=== PATIENT | male | born 1940 | race African-American/Black ===

== ENCOUNTER 2018-11-06 06:36 | Inpatient (IN) | payer OTHER ==
--- OUTSIDE RECORDS SUMMARY | 2018-11-06 06:38 | XMS REPORT | Clinical Summary ---
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 Last Filed Vital Signs Vital Sign Reading Time Taken Blood Pressure - - Pulse - - Temperature - - Respiratory Rate - - Oxygen Saturation - - Inhaled Oxygen Concentration - - Weight 90.7 kg (200 lb) 05/16/2018 1:30 PM CDT Height 177.8 cm (5' 10") 05/16/2018 1:30 PM CDT Body Mass Index 28.7 05/16/2018 1:30 PM CDT Plan of Treatment Health Maintenance Due Date Last Done Comments SHINGLES VACCINES (1 of 2) 1991 PNEUMOCOCCAL POLYSACCHARIDE VACCINE AGE 65 AND OVER 2006 PNEUMOCOCCAL-13 2006 INFLUENZA VACCINE 06/12/2018 Procedures Procedure Name Priority Date/Time Associated Diagnosis Comments CT ABDOMEN PELVIS Routine 05/16/2018 2:49 PM Neoplasm of Results for this WO CONTRAST CDT unspecified behavior procedure are in of left kidney the results section. 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 Sagittal and coronal computerized reformatted images were also obtained. The lack of intravenous contrast reduces the sensitivity of detecting solid organ disease.CT imaging was performed with iterative reconstruction technique and/or automated exposure control to reduce radiation dose. COMPARISON:None. IMPRESSION: Abdomen: There is cardiomegaly. Lung bases are unremarkable. A small hypodensity in the left hepatic lobe is 11 mm. It is likely a cyst but is not optimally evaluated without contrast. There is cholelithiasis. Spleen, pancreas, and adrenal glands are normal in appearance. Numerous masses in the left kidney are mostly hypodense although some are hyperdense. The largest is 8 cm. These are likely simple and hemorrhagic cysts but better evaluation with postcontrast enhanced CT is recommended. Numerous hyperdense lesions are seen in the right kidney in addition to several hypodense lesions. The largest lesion is 4.1 cm. These are also likely simple and hemorrhagic cysts. Postcontrast enhanced exam could best assess. The appendix is unremarkable. Pelvis: The patient is status post prostatectomy and iliac lymph node dissection. Small bilateral inguinal lymph nodes are seen which are increased in number. A left buttock fatty mass is 3.2 x 2.5 cm. 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 Sagittal and coronal computerized reformatted images were also obtained. The lack of intravenous contrast reduces the sensitivity of detecting solid organ disease.CT imaging was performed with iterative reconstruction technique and/or automated exposure control to reduce radiation dose. COMPARISON: None. IMPRESSION: Abdomen: There is cardiomegaly. Lung bases are unremarkable. A small hypodensity in the left hepatic lobe is 11 mm. It is likely a cyst but is not optimally evaluated without contrast. There is cholelithiasis. Spleen, pancreas, and adrenal glands are normal in appearance. Numerous masses in the left kidney are mostly hypodense although some are hyperdense. The largest is 8 cm. These are likely simple and hemorrhagic cysts but better evaluation with postcontrast enhanced CT is recommended. Numerous hyperdense lesions are seen in the right kidney in addition to several hypodense lesions. The largest lesion is 4.1 cm. These are also likely simple and hemorrhagic cysts. Postcontrast enhanced exam could best assess. The appendix is unremarkable. Pelvis: The patient is status post prostatectomy and iliac lymph node dissection. Small bilateral inguinal lymph nodes are seen which are increased in number. A left buttock fatty mass is 3.2 x 2.5 cm. 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 [facility]-[id number] Performing Organization Address City/State/Zipcode Phone Number [facility] [address] [place] [address] after 11/05/2017 Insurance Payer Benefit Plan / Group Subscriber ID Type Phone Address MEDICARE MEDICARE PART A AND B xxxxxxxxxx Medicare [place], [place] Advance Directives Patient has advance care planning documents on file. For more information, please contact:Mikal Cowan[address] [place] [address]
--- OUTSIDE RECORDS SUMMARY | 2018-11-06 06:38 | XMS REPORT | Clinical Summary ---
:1940 Author Organization [facility] Address [address] [place] [address] Care Team Providers Name Role Phone Unavailable Primary Care Provider Unavailable Allergies No Known Allergies Medications Medication Sig Dispensed Refills Start Date End Date Status furosemide (LASIX) 40 Take 40 mg by 0 Active MG tablet mouth daily. atorvastatin Take 10 mg by 0 Active (LIPITOR) 10 MG mouth nightly. tablet allopurinol Take 100 mg by 0 Active (ZYLOPRIM) 100 MG mouth daily. tablet metoprolol Take 50 mg by 0 Active (TOPROL-XL) 50 MG 24 mouth daily. hr tablet acarbose (PRECOSE) 50 Take 50 mg by 0 Active MG tablet mouth 3 (three) times daily with meals. cloNIDine HCl Take 1 tablet 270 tablet 3 10/26/2017 10/26/2018 (CATAPRES) 0.2 MG (0.2 mg total) tablet by mouth 3 (three) times daily. hydrALAZINE Take 1 tablet 270 tablet 3 10/26/2017 10/26/2018 (APRESOLINE) 50 MG (50 mg total) tablet by mouth every 8 (eight) hours. NIFEdipine (ADALAT Take 1 tablet 180 tablet 3 10/26/2017 10/26/2018 CC) 30 MG 24 hr (30 mg total) tablet by mouth 2 (two) times daily. traMADol (ULTRAM) 50 Take 1 tablet 30 tablet 0 10/26/2017 11/05/2017 mg tablet (50 mg total) by mouth every 6 (six) hours as needed for up to 10 days. Max Daily Amount: 200 mg Active Problems Problem Noted Date Kidney mass 10/21/2017 Immunizations Name Dates Previously Given Next Due Influenza High Dose Preservative Free IM 10/26/2017 Pneumococcal Polysaccharide (Pneumovax) 10/26/2017 Social History Tobacco Use Types Packs/Day Years Used Date Former Smoker Smokeless Tobacco: Never Used Sex Assigned at Date Recorded Not on file Job Start Date Occupation Industry Not on file Not on file Not on file Travel History Travel Start Travel End No recent travel history available. Last Filed Vital Signs Not on file Plan of Treatment Not on file Results Not on fileafter 11/05/2017 Insurance Payer Benefit Plan / Group Subscriber ID Type Phone Address MEDICARE MEDICARE A B xxxxxxxxxx Medicare Advance Directives For more information, please contact:[address] [phone] Code Status Date Activated Date Inactivated Comments Full Code 10/21/2017 3:49 PM 10/26/2017 4:58 PM This code status was determined by: Patient
--- OUTSIDE RECORDS SUMMARY | 2018-11-06 06:39 | XMS REPORT ---
:1940 [facility] [address] [place] [address] Care Team Providers Name Role Phone BANDAR MOORE Unavailable Unavailable Problems This patient has no known problems. Allergies, Adverse Reactions, Alerts This patient has no known allergies or adverse reactions. Medications This patient has no known medications. Results Test Description Test Time Test Comments Text Results Atomic Results Result Comments BLOOD CULTURE 2017-10-27 10:00:00 Test Item Value Reference Range Comments CULTURE (BEAKER) (test jnho=5800) No growth in 5 days BLOOD [id number] 10:00:00 Test Item Value Reference Range Comments CULTURE (BEAKER) (test gazf=1142) No growth in 5 days POCT-GLUCOSE [id number] 12:18:00 Test Item Value Reference Range Comments POC-GLUCOSE METER (BEAKER) 181 mg/dL 70-110 TESTED AT [address] (test krne=8683) [place] [id number] POCT-GLUCOSE [id number] 08:05:00 Test Item Value Reference Range Comments POC-GLUCOSE METER (BEAKER) 143 mg/dL 70-110 TESTED AT [address] (test kneq=7251) [place] [id number] BASIC METABOLIC [id number] 06:08:00 Test Item Value Reference Range Comments SODIUM (BEAKER) (test 139 meq/L 136-145 lbxh=843) POTASSIUM (BEAKER) (test 4.3 meq/L 3.5-5.1 qvll=406) CHLORIDE (BEAKER) (test 107 meq/L 98-107 cqpu=030) CO2 (BEAKER) (test 23 meq/L 22-29 bcyi=115) BLOOD UREA NITROGEN 40 mg/dL 7-21 (BEAKER) (test uymi=260) CREATININE (BEAKER) (test 2.56 mg/dL 0.57-1.25 vpxf=284) GLUCOSE RANDOM (BEAKER) 150 mg/dL 70-105 (test tkud=596) CALCIUM (BEAKER) (test 7.7 mg/dL 8.4-10.2 ghff=478) EGFR (BEAKER) (test 30 mL/min/1.73 sq m ESTIMATED GFR IS NOT vnnf=6789) ACCURATE CREATININE CLEARANCE IN PREDICTING GLOMERULAR FILTRATION RATE. ESTIMATED GFR IS NOT APPLICABLE FOR DIALYSIS PATIENTS. [id number] 06:03:00 Test Item Value Reference Range Comments PHOSPHORUS (BEAKER) (test eaig=396) 3.4 mg/dL 2.3-4.7 [id number] 06:03:00 Test Item Value Reference Range Comments MAGNESIUM (BEAKER) (test twtq=336) 1.9 mg/dL 1.6-2.6 CBC W/PLT COUNT & AUTO [id number] 05:38:00 Test Item Value Reference Range Comments WHITE BLOOD CELL COUNT (BEAKER) (test fiqa=648) 9.4 K/ L 3.5-10.5 RED BLOOD CELL COUNT (BEAKER) (test wzvx=437) 2.93 M/ L 4.63-6.08 HEMOGLOBIN (BEAKER) (test nxmw=242) 7.4 GM/DL 13.7-17.5 HEMATOCRIT (BEAKER) (test xafi=302) 23.0 % 40.1-51.0 MEAN CORPUSCULAR VOLUME (BEAKER) (test vbwd=119) 78.5 fL 79.0-92.2 MEAN CORPUSCULAR HEMOGLOBIN (BEAKER) (test 25.3 pg 25.7-32.2 hmqh=903) MEAN CORPUSCULAR HEMOGLOBIN CONC (BEAKER) (test 32.2 GM/DL 32.3-36.5 yctw=659) RED CELL DISTRIBUTION WIDTH (BEAKER) (test 17.5 % 11.6-14.4 ruuo=383) PLATELET COUNT (BEAKER) (test xlyp=456) 168 K/CU MM 150-450 MEAN PLATELET VOLUME (BEAKER) (test deba=211) 12.2 fL 9.4-12.4 NUCLEATED RED BLOOD CELLS (BEAKER) (test 0 /100 WBC 0-0 kpqf=567) NEUTROPHILS RELATIVE PERCENT (BEAKER) (test 82 % ofjc=761) LYMPHOCYTES RELATIVE PERCENT (BEAKER) (test 7 % ogvl=645) MONOCYTES RELATIVE PERCENT (BEAKER) (test 9 % zfdg=620) EOSINOPHILS RELATIVE PERCENT (BEAKER) (test 2 % inci=879) BASOPHILS RELATIVE PERCENT (BEAKER) (test 0 % dmpo=290) NEUTROPHILS ABSOLUTE COUNT (BEAKER) (test 7.65 K/ L 1.78-5.38 utzq=398) LYMPHOCYTES ABSOLUTE COUNT (BEAKER) (test 0.65 K/ L 1.32-3.57 uqmp=862) MONOCYTES ABSOLUTE COUNT (BEAKER) (test 0.88 K/ L 0.30-0.82 repa=757) EOSINOPHILS ABSOLUTE COUNT (BEAKER) (test 0.14 K/ L 0.04-0.54 aifc=909) BASOPHILS ABSOLUTE COUNT (BEAKER) (test 0.02 K/ L 0.01-0.08 umuq=041) IMMATURE GRANULOCYTES-RELATIVE PERCENT (BEAKER) 0 % 0-1 (test unsx=7629) CALCIUM, [id number] 05:36:00 Test Item Value Reference Range Comments CALCIUM IONIZED (BEAKER) (test jjyz=034) 0.89 mmol/L 1.12-1.27 PH, BLOOD (BEAKER) (test blll=6334) 7.54 POCT-GLUCOSE [id number] 21:59:00 Test Item Value Reference Range Comments POC-GLUCOSE METER (BEAKER) 184 mg/dL 70-110 TESTED AT [address] (test opqb=3262) [place] [id number] POCT-GLUCOSE [id number] 17:35:00 Test Item Value Reference Range Comments POC-GLUCOSE METER (BEAKER) 130 mg/dL 70-110 TESTED AT [address] (test scnp=5389) [facility] [address] POCT-GLUCOSE [id number] 11:42:00 Test Item Value Reference Range Comments POC-GLUCOSE METER (BEAKER) 161 mg/dL 70-110 TESTED AT [address] (test ktbr=6948) [place] [id number] POCT-GLUCOSE [id number] 10:42:00 Test Item Value Reference Range Comments POC-GLUCOSE METER (BEAKER) 172 mg/dL 70-110 TESTED AT [address] (test ujls=9263) [place] [id number] CBC W/PLT COUNT & AUTO [id number] 09:06:00 Test Item Value Reference Range Comments WHITE BLOOD CELL COUNT (BEAKER) (test bpmd=365) 10.7 K/ L 3.5-10.5 RED BLOOD CELL COUNT (BEAKER) (test yfzb=680) 3.06 M/ L 4.63-6.08 HEMOGLOBIN (BEAKER) (test yexc=001) 7.7 GM/DL 13.7-17.5 HEMATOCRIT (BEAKER) (test effg=489) 23.7 % 40.1-51.0 MEAN CORPUSCULAR VOLUME (BEAKER) (test evwl=589) 77.5 fL 79.0-92.2 MEAN CORPUSCULAR HEMOGLOBIN (BEAKER) (test 25.2 pg 25.7-32.2 bkgk=450) MEAN CORPUSCULAR HEMOGLOBIN CONC (BEAKER) (test 32.5 GM/DL 32.3-36.5 fgwk=499) RED CELL DISTRIBUTION WIDTH (BEAKER) (test 17.0 % 11.6-14.4 tsrs=820) PLATELET COUNT (BEAKER) (test hhnv=799) 154 K/CU MM 150-450 MEAN PLATELET VOLUME (BEAKER) (test kisd=338) 12.5 fL 9.4-12.4 NUCLEATED RED BLOOD CELLS (BEAKER) (test 0 /100 WBC 0-0 kswx=138) NEUTROPHILS RELATIVE PERCENT (BEAKER) (test 85 % uyby=050) LYMPHOCYTES RELATIVE PERCENT (BEAKER) (test 6 % vkzf=220) MONOCYTES RELATIVE PERCENT (BEAKER) (test 8 % xbqz=346) EOSINOPHILS RELATIVE PERCENT (BEAKER) (test 1 % ytux=179) BASOPHILS RELATIVE PERCENT (BEAKER) (test 0 % fkzg=408) NEUTROPHILS ABSOLUTE COUNT (BEAKER) (test 9.05 K/ L 1.78-5.38 oyzl=158) LYMPHOCYTES ABSOLUTE COUNT (BEAKER) (test 0.63 K/ L 1.32-3.57 uios=146) MONOCYTES ABSOLUTE COUNT (BEAKER) (test 0.88 K/ L 0.30-0.82 eduv=010) EOSINOPHILS ABSOLUTE COUNT (BEAKER) (test 0.06 K/ L 0.04-0.54 gkbu=212) BASOPHILS ABSOLUTE COUNT (BEAKER) (test 0.01 K/ L 0.01-0.08 aira=086) IMMATURE GRANULOCYTES-RELATIVE PERCENT (BEAKER) 1 % 0-1 (test zfex=7591) BASIC METABOLIC [id number] 08:20:00 Test Item Value Reference Range Comments SODIUM (BEAKER) (test 142 meq/L 136-145 sdpu=354) POTASSIUM (BEAKER) (test 4.0 meq/L 3.5-5.1 juis=907) CHLORIDE (BEAKER) (test 108 meq/L 98-107 fehm=064) CO2 (BEAKER) (test 25 meq/L 22-29 ctya=414) BLOOD UREA NITROGEN 41 mg/dL 7-21 (BEAKER) (test bjop=445) CREATININE (BEAKER) (test 2.65 mg/dL 0.57-1.25 nxhv=100) GLUCOSE RANDOM (BEAKER) 132 mg/dL 70-105 (test assb=941) CALCIUM (BEAKER) (test 7.8 mg/dL 8.4-10.2 twaw=615) EGFR (BEAKER) (test 29 mL/min/1.73 sq m ESTIMATED GFR IS NOT wkqp=0570) ACCURATE CREATININE CLEARANCE IN PREDICTING GLOMERULAR FILTRATION RATE. ESTIMATED GFR IS NOT APPLICABLE FOR DIALYSIS PATIENTS. [id number] 07:57:00 Test Item Value Reference Range Comments PHOSPHORUS (BEAKER) (test dddl=740) 3.2 mg/dL 2.3-4.7 [id number] 07:57:00 Test Item Value Reference Range Comments MAGNESIUM (BEAKER) (test gzsp=259) 1.7 mg/dL 1.6-2.6 CALCIUM, [id number] 07:40:00 Test Item Value Reference Range Comments CALCIUM IONIZED (BEAKER) (test yilr=596) 0.95 mmol/L 1.12-1.27 PH, BLOOD (BEAKER) (test orzl=3266) 7.53 POCT-GLUCOSE [id number] 21:39:00 Test Item Value Reference Range Comments POC-GLUCOSE METER (BEAKER) 138 mg/dL 70-110 TESTED AT [facility] [address] [facility] (test iivl=6421) [facility] [address] POCT-GLUCOSE [id number] 18:16:00 Test Item Value Reference Range Comments POC-GLUCOSE METER (BEAKER) 158 mg/dL 70-110 TESTED AT [facility] [address] [facility] (test yiat=4800) [facility] [address] POCT-GLUCOSE [id number] 12:07:00 Test Item Value Reference Range Comments POC-GLUCOSE METER (BEAKER) 153 mg/dL 70-110 TESTED AT [facility] [address] [facility] (test hnya=5568) [facility] [address] POCT-GLUCOSE [id number] 08:12:00 Test Item Value Reference Range Comments POC-GLUCOSE METER (BEAKER) 133 mg/dL 70-110 TESTED AT [place] [id number] [facility] (test novc=1299) [facility] [address] BASIC METABOLIC [id number] 05:25:00 Test Item Value Reference Range Comments SODIUM (BEAKER) (test 142 meq/L 136-145 cqgc=097) POTASSIUM (BEAKER) (test 4.0 meq/L 3.5-5.1 rkjv=149) CHLORIDE (BEAKER) (test 109 meq/L 98-107 noyc=582) CO2 (BEAKER) (test 24 meq/L 22-29 qicg=086) BLOOD UREA NITROGEN 47 mg/dL 7-21 (BEAKER) (test yesy=240) CREATININE (BEAKER) (test 3.13 mg/dL 0.57-1.25 hvyk=895) GLUCOSE RANDOM (BEAKER) 130 mg/dL 70-105 (test zwex=053) CALCIUM (BEAKER) (test 7.6 mg/dL 8.4-10.2 beho=757) EGFR (BEAKER) (test 24 mL/min/1.73 sq m ESTIMATED GFR IS NOT ypcb=3987) ACCURATE CREATININE CLEARANCE IN PREDICTING GLOMERULAR FILTRATION RATE. ESTIMATED GFR IS NOT APPLICABLE FOR DIALYSIS PATIENTS. CALCIUM, [id number] 05:23:00 Test Item Value Reference Range Comments CALCIUM IONIZED (BEAKER) (test uifm=954) 0.88 mmol/L 1.12-1.27 PH, BLOOD (BEAKER) (test kwip=7285) 7.50 [id number] 05:22:00 Test Item Value Reference Range Comments PHOSPHORUS (BEAKER) (test vfmo=169) 3.7 mg/dL 2.3-4.7 [id number] 05:22:00 Test Item Value Reference Range Comments MAGNESIUM (BEAKER) (test nykl=403) 1.8 mg/dL 1.6-2.6 CBC W/PLT COUNT & AUTO [id number] 05:10:00 Test Item Value Reference Range Comments WHITE BLOOD CELL COUNT (BEAKER) (test yuou=403) 12.5 K/ L 3.5-10.5 RED BLOOD CELL COUNT (BEAKER) (test abxu=385) 2.83 M/ L 4.63-6.08 HEMOGLOBIN (BEAKER) (test pwnf=562) 7.2 GM/DL 13.7-17.5 HEMATOCRIT (BEAKER) (test hpuq=540) 22.2 % 40.1-51.0 MEAN CORPUSCULAR VOLUME (BEAKER) (test qikk=147) 78.4 fL 79.0-92.2 MEAN CORPUSCULAR HEMOGLOBIN (BEAKER) (test 25.4 pg 25.7-32.2 zull=174) MEAN CORPUSCULAR HEMOGLOBIN CONC (BEAKER) (test 32.4 GM/DL 32.3-36.5 vdxg=780) RED CELL DISTRIBUTION WIDTH (BEAKER) (test 16.4 % 11.6-14.4 qepi=511) PLATELET COUNT (BEAKER) (test gjja=409) 128 K/CU MM 150-450 MEAN PLATELET VOLUME (BEAKER) (test oiwg=066) 12.1 fL 9.4-12.4 NUCLEATED RED BLOOD CELLS (BEAKER) (test 0 /100 WBC 0-0 rlya=747) NEUTROPHILS RELATIVE PERCENT (BEAKER) (test 86 % irtr=569) LYMPHOCYTES RELATIVE PERCENT (BEAKER) (test 5 % zeww=985) MONOCYTES RELATIVE PERCENT (BEAKER) (test 8 % hxoy=177) EOSINOPHILS RELATIVE PERCENT (BEAKER) (test 0 % imlv=836) BASOPHILS RELATIVE PERCENT (BEAKER) (test 0 % dpmn=502) NEUTROPHILS ABSOLUTE COUNT (BEAKER) (test 10.79 K/ L 1.78-5.38 ctzj=690) LYMPHOCYTES ABSOLUTE COUNT (BEAKER) (test 0.61 K/ L 1.32-3.57 kwss=468) MONOCYTES ABSOLUTE COUNT (BEAKER) (test 0.96 K/ L 0.30-0.82 mohe=662) EOSINOPHILS ABSOLUTE COUNT (BEAKER) (test 0.05 K/ L 0.04-0.54 ydxu=036) BASOPHILS ABSOLUTE COUNT (BEAKER) (test 0.02 K/ L 0.01-0.08 mhlx=598) IMMATURE GRANULOCYTES-RELATIVE PERCENT (BEAKER) 0 % 0-1 (test qhjc=3890) HEMOGLOBIN AND [id number] 00:40:00 Test Item Value Reference Range Comments HEMOGLOBIN (BEAKER) (test epdl=819) 7.1 GM/DL 13.7-17.5 HEMATOCRIT (BEAKER) (test rfuc=253) 21.6 % 40.1-51.0 Send specimen after 2 units PRBC transfusion is completedPOCT-GLUCOSE [id number] 21:20:00 Test Item Value Reference Range Comments POC-GLUCOSE METER (BEAKER) 114 mg/dL 70-110 TESTED AT [address] (test xybj=2874) [place] [address] POCT-GLUCOSE [id number] 17:14:00 Test Item Value Reference Range Comments POC-GLUCOSE METER (BEAKER) 92 mg/dL 70-110 TESTED AT [address] (test itjm=2101) [place] [address] ANG, EMBOLIZATION, EXTENSIVE - [id number] 15:08:00Reason for exam:-> left kidney intraparenchymal hemorrhageReason for exam:->please review filmsand consider embolization, please call Dr Duke with urology to discuss- [phone] REPORT Renal arteriogram: Pertinent clinical information: Left kidney hemorrhage Modality: Fluoroscopy Conscious Sedation Versed 0.5 mg and fentanyl 25 mcg intravenously face to face intraservice Physician/Patient time: 40 minutesDuring the procedure with conscious sedation, the patient was monitored continuously with pulse oximetry and electrocardiography by the attending physician and registered nurse. Comparison: A recent CT scan Anesthesia: Two percent Lidocaine injected subcutaneously at the right groin. Approach: Right common femoral artery Fluoro time in minutes: 3.4 minutes. 32 images were submitted for interpretation. Total dose 391.7 mGyFor maximum sterile barrier protection a mask, cap, sterile gloves, sterile drape, sterile gown, and a cutaneous antiseptic was utilized. Technique: After informed written consent was obtained , the patient was prepped and draped in the usual sterile manner. Access was obtained with a 19 gauge needle, and the right common femoral artery was catheterized. A guide wire was advanced centrally. A 5 Estonian catheter was advanced with its distal tip terminating in the abdominal aorta at the level of the renal arteries. Vital signs were monitored throughout the procedure by a nurse, and remained stable. The patient tolerated the procedure well and left the department in the same condition. Results: Left renal arteriogram: Secondary to an elevated creatinine the main renal artery was selectively catheterized. Thereis no evidence of an AV malformation. There is no evidence of neovascularity. There is no evidence of an active arterial bleed. Impression:This study was performed emergently. The patient has an elevated creatinine. A left renal arteriogram was performed to exclude an active bleed. There is no evidence of AV malformation or neovascularity. There is no evidence of an active arterial bleed. The referring urologist was notified. This study was compromised by the patient's inability to cooperate and overlying contrast from a recent CT scan. Signed: Saige Ashford Verified Date/Time: 201615:08:40 Reading Location: [place] [address] Angio Body Reading Room URINE [id number] 10:50:00 Test Item Value Reference Range Comments CULTURE (BEAKER) (test aeme=8305) No growth [id number] 10:38:00 Test Item Value Reference Range Comments PROTIME (BEAKER) (test qlqc=709) 17.5 seconds 11.7-14.7 INR (BEAKER) (test jjkr=442) 1.4 <=5.9 PARTIAL THROMBOPLASTIN TIME (BEAKER) (test 34.3 seconds 22.5-36.0 sosf=925) RECOMMENDED COUMADIN/WARFARIN INR THERAPY RANGESSTANDARD DOSE: 2.0 - 3.0 Includes: PROPHYLAXIS forvenous thrombosis, systemic embolization; TREATMENT for venous thrombosis and/or pulmonary embolus.HIGH RISK: Target INR is 2.5-3.5 for patients with mechanical heart valves.CBC W/PLT COUNT & AUTO [id number] 08:42:00 Test Item Value Reference Range Comments WHITE BLOOD CELL COUNT 14.4 K/ L 3.5-10.5 (BEAKER) (test edzu=709) RED BLOOD CELL COUNT (BEAKER) 2.45 M/ L 4.63-6.08 (test jrkt=902) HEMOGLOBIN (BEAKER) (test 5.9 GM/DL 13.7-17.5 flow=012) HEMATOCRIT (BEAKER) (test 18.6 % 40.1-51.0 cwlr=504) MEAN CORPUSCULAR VOLUME 75.9 fL 79.0-92.2 (BEAKER) (test dsii=442) MEAN CORPUSCULAR HEMOGLOBIN 24.1 pg 25.7-32.2 (BEAKER) (test bmwt=188) MEAN CORPUSCULAR HEMOGLOBIN 31.7 GM/DL 32.3-36.5 CONC (BEAKER) (test isan=214) RED CELL DISTRIBUTION WIDTH 15.8 % 11.6-14.4 (BEAKER) (test pmro=497) PLATELET COUNT (BEAKER) (test 112 K/CU MM 150-450 qzpv=613) MEAN PLATELET VOLUME (BEAKER) fL 9.4-12.4 Unable to report due to (test ojhk=571) abnormal Platelet population distribution. NUCLEATED RED BLOOD CELLS 0 /100 WBC 0-0 (BEAKER) (test izwt=491) NEUTROPHILS RELATIVE PERCENT 85 % (BEAKER) (test nlmi=166) LYMPHOCYTES RELATIVE PERCENT 5 % (BEAKER) (test wvme=936) MONOCYTES RELATIVE PERCENT 9 % (BEAKER) (test mlnf=704) EOSINOPHILS RELATIVE PERCENT 1 % (BEAKER) (test jdzo=269) BASOPHILS RELATIVE PERCENT 0 % (BEAKER) (test ixcy=069) NEUTROPHILS ABSOLUTE COUNT 12.25 K/ L 1.78-5.38 (BEAKER) (test yjxe=617) LYMPHOCYTES ABSOLUTE COUNT 0.76 K/ L 1.32-3.57 (BEAKER) (test xzdw=273) MONOCYTES ABSOLUTE COUNT 1.25 K/ L 0.30-0.82 (BEAKER) (test cxny=572) EOSINOPHILS ABSOLUTE COUNT 0.08 K/ L 0.04-0.54 (BEAKER) (test qcah=665) BASOPHILS ABSOLUTE COUNT 0.02 K/ L 0.01-0.08 (BEAKER) (test bxkk=307) IMMATURE GRANULOCYTES-RELATIVE 1 % 0-1 PERCENT (BEAKER) (test qfey=5599) BASIC METABOLIC [id number] 07:46:00 Test Item Value Reference Range Comments SODIUM (BEAKER) (test 140 meq/L 136-145 raok=787) POTASSIUM (BEAKER) (test 3.9 meq/L 3.5-5.1 wmkb=665) CHLORIDE (BEAKER) (test 107 meq/L 98-107 vgli=662) CO2 (BEAKER) (test 24 meq/L 22-29 jmsm=935) BLOOD UREA NITROGEN 50 mg/dL 7-21 (BEAKER) (test wvpi=048) CREATININE (BEAKER) (test 3.68 mg/dL 0.57-1.25 bvgx=548) GLUCOSE RANDOM (BEAKER) 110 mg/dL 70-105 (test cvqo=946) CALCIUM (BEAKER) (test 7.2 mg/dL 8.4-10.2 lrpf=256) EGFR (BEAKER) (test 20 mL/min/1.73 sq m ESTIMATED GFR IS NOT kcfg=2575) ACCURATE CREATININE CLEARANCE IN PREDICTING GLOMERULAR FILTRATION RATE. ESTIMATED GFR IS NOT APPLICABLE FOR DIALYSIS PATIENTS. [id number] 07:41:00 Test Item Value Reference Range Comments PHOSPHORUS (BEAKER) (test bpla=284) 3.5 mg/dL 2.3-4.7 [id number] 07:41:00 Test Item Value Reference Range Comments MAGNESIUM (BEAKER) (test ixtd=401) 1.8 mg/dL 1.6-2.6 POCT-GLUCOSE [id number] 07:13:00 Test Item Value Reference Range Comments POC-GLUCOSE METER (BEAKER) 124 mg/dL 70-110 TESTED AT [address] (test oehj=4802) [facility] [address] CT, [id number] 00:22:00FINAL REPORT CT, ABDOMEN \T \ PELVIS, WITHOUT IV CONTRAST INDICATION: hematomakidney COMPARISON: Correlation to renal ultrasound earlier same day. TECHNIQUE: CT of the abdomen and pelvis WITHOUT intravenous contrast. Oral contrast is present. DOSE REDUCTION: Dose modulation, iterative reconstruction, and/or weight-based adjustment of the mA/kV was utilized to reduce the radiation dose to as low as reasonably achievable. FINDINGS:NOTE: Absence of intravenous contrast decreases sensitivity for focal lesions and vascular pathology. Lower thorax: Small volume left effusion. Associated relaxation atelectasis. Liver: No parenchymal abnormality.Gallbladder and biliary tree: No ductal dilation or stones.Pancreas: No acute findings.Spleen: No acute findingsAdrenal Glands: No acute findings.Kidneys and ureters: Multiple renal cysts including several hyperattenuating cyst exhibiting benign appearance on reference sonographic examination. There is marked enlargement of the left kidney and hyperattenuation compatible with provided history of hemorrhage. Approximate renal size includes 14.7 x 15.7 x 10 cm. Most of the hemorrhage appears confined to the renal parenchyma and capsule, however there is a lateral hematoma measuring approximately 12.7 x 2.7 x 9.3 cm. Combination of findings exert mass effect with stranding and reactive changes involving both lateral conal and Gerota'sfascia.Bladder and reproductive organs: Urinary bladder is decompressed by Moody catheter. Prior prostatectomy. Regional lymph node dissection noted. Stomach and Duodenum: No significant findings.Smalland large intestine: Normal calibers.Appendix: Normal. Major vascular structures: Normal aortic caliber.Peritoneum and retroperitoneum: No free air, fluid or adenopathy. Skeleton: No acute bony abnormality.Additional findings: None. IMPRESSION: Noncontrast examination demonstrating a large parenchymal/ intracapsular hematoma of the left kidney. Approximate measurements are 14.7 x 15.7 x 10 cm. Associated perinephric hematoma measuring 12.7 x 2.7 x 9.3 cm. Regional mass effect without evidence for bowel obstruction. Signed: JR Marlow Robert MDReport Verified Date/Time: 10/23/2017 00:22:43 Reading Location: [address] Body Reading Room CREATINE KINASE (CK)2017-10-22 21 :31:00 Test Item Value Reference Range Comments CREATINE KINASE TOTAL (BEAKER) (test psol=395) 167 U/L 29-200 LACTIC ACID, VENOUS, WHOLE [id number] 21:24:00 Test Item Value Reference Range Comments LACTATE BLOOD VENOUS (2) (BEAKER) (test 0.8 mmol/L 0.5-2.2 nfbd=2979) Effective 03/15/2016: Units/Reference Range ChangeNew: 0.5-2.2 mmol/L Previous: 5 -20 mg/dLPOCT-GLUCOSE [id number] 21:23:00 Test Item Value Reference Range Comments POC-GLUCOSE METER (BEAKER) 130 mg/dL 70-110 TESTED AT [facility] [address] (test twnn=2864) [facility] [address] SODIUM, RANDOM [id number] 20:29:00 Test Item Value Reference Range Comments SODIUM URINE (BEAKER) (test jspc=367) 24 meq/L Reference Range: No NormalsCREATININE, RANDOM [id number] 20:27:00 Test Item Value Reference Range Comments CREATININE URINE (BEAKER) (test tsaf=412) 155.1 mg/dL Reference Range: No NormalsPROTEIN, RANDOM [id number] 20:27:00 Test Item Value Reference Range Comments PROTEIN, URINE (BEAKER) (test czgo=1519) 60 mg/dL 0-14 URINALYSIS W/ [id number] 20:27:00 Test Item Value Reference Range Comments COLOR (BEAKER) (test bghe=555) Yellow CLARITY (BEAKER) (test htdl=711) Hazy SPECIFIC GRAVITY UA (BEAKER) (test dnxl=749) 1.010 1.001-1.035 PH UA (BEAKER) (test hilu=824) 5.0 5.0-8.0 PROTEIN UA (BEAKER) (test lann=951) 70 mg/dL Negative GLUCOSE UA (BEAKER) (test tksz=197) Negative Negative KETONES UA (BEAKER) (test orkd=786) Negative Negative BILIRUBIN UA (BEAKER) (test bzwp=362) Negative Negative BLOOD UA (BEAKER) (test yaox=610) Moderate Negative NITRITE UA (BEAKER) (test yhdm=669) Negative Negative LEUKOCYTE ESTERASE UA (BEAKER) (test rjuw=263) Large Negative UROBILINOGEN UA (BEAKER) (test zdnt=566) 0.2 mg/dL 0.2-1.0 RBC UA (BEAKER) (test zfyl=533) 85 /HPF WBC UA (BEAKER) (test xeib=603) 0 /HPF BACTERIA (BEAKER) (test dxgr=906) Many MUCUS (BEAKER) (test frso=0713) Few SQUAMOUS EPITHELIAL (BEAKER) (test hbtj=371) 5 /HPF CASTS (BEAKER) (test lqej=6817) 5 /LPF CRYSTALS, URINE (BEAKER) (test qfmv=3051) Moderate YEAST (BEAKER) (test lmzb=8670) Few SOURCE(BEAKER) (test wqjr=4050) Urine, [place] POCT-GLUCOSE [id number] 17:05:00 Test Item Value Reference Range Comments POC-GLUCOSE METER (BEAKER) 113 mg/dL 70-110 TESTED AT [address] (test ktpo=7119) [facility] [address] [id number] 16:24:00 Test Item Value Reference Range Comments PROSTATE SPECIFIC ANTIGEN (BEAKER) (test kekc=519) 0.0 ng/mL 0.0-4.0 POCT-GLUCOSE [id number] 11:21:00 Test Item Value Reference Range Comments POC-GLUCOSE METER (BEAKER) 146 mg/dL 70-110 TESTED AT [address] (test cxpg=6820) [place] [id number] HEMOGLOBIN AND [id number] 11:19:00 Test Item Value Reference Range Comments HEMOGLOBIN (BEAKER) (test acmi=216) 6.4 GM/DL 13.7-17.5 HEMATOCRIT (BEAKER) (test qmmf=427) 20.0 % 40.1-51.0 U/S, RENAL, [id number] 09:08:00Reason for exam:->left intraparenchymal hematoma on CTFINAL REPORT Renal ultrasound dated 10/22/2017 Comment: Real-time transabdominal renal ultrasound was performed.Right kidney measures 13.9 x 7.0 x 5.7 cm. Left kidney tojmjjln06.3 x 9.7 x 9.2 cm. Right renal cortex measures 1.1 cm. Echogenicity of the right renal parenchymais normal. There is increased echogenicity in the left renal parenchyma. Several cysts are seen in the right kidney with the largest measuring 3.4 x 3.2 x 3.4 cm. Several cysts are seen in the left kidney with the largest measuring 4 x 3.2 x 2.5 cm. A large 8.8 x 6.8 x 6.3 cm complex mass is seen upper pole left kidney. The urinary bladder measures 262 cc. Doppler ultrasound demonstrates patent main renal artery and vein bilaterally. Impression: 1. Echogenic left kidney suggestive of medical renaldisease.2. Bilateral renal cysts appear3. Complex mass in the upper pole left kidney. Recommend further evaluation with CT or MRI examination with renal protocol. Signed: Annabel Poole MDReport Verified Date/Time: 10/22/2017 09:08:47 Reading Location: [facility] [id number] Ultrasound Reading Room POCT-GLUCOSE [id number] 08:05:00 Test Item Value Reference Range Comments POC-GLUCOSE METER (BEAKER) 154 mg/dL 70-110 TESTED AT [facility] [address] [facility] (test dvwu=4759) [facility] [address] URINALYSIS W/ [id number] 07:56:00 Test Item Value Reference Range Comments COLOR (BEAKER) (test cumv=452) Yellow CLARITY (BEAKER) (test gjea=048) Hazy SPECIFIC GRAVITY UA (BEAKER) (test ttiw=990) 1.013 1.001-1.035 PH UA (BEAKER) (test lbik=524) 5.0 5.0-8.0 PROTEIN UA (BEAKER) (test lnnp=163) 100 mg/dL Negative GLUCOSE UA (BEAKER) (test ubys=130) Negative Negative KETONES UA (BEAKER) (test eojy=911) Negative Negative BILIRUBIN UA (BEAKER) (test elyw=476) Negative Negative BLOOD UA (BEAKER) (test mufq=413) Moderate Negative NITRITE UA (BEAKER) (test wkng=684) Negative Negative LEUKOCYTE ESTERASE UA (BEAKER) (test taiv=458) Negative Negative UROBILINOGEN UA (BEAKER) (test aryn=935) 0.2 mg/dL 0.2-1.0 RBC UA (BEAKER) (test skgl=418) 13 /HPF WBC UA (BEAKER) (test pltw=020) 1 /HPF BACTERIA (BEAKER) (test glvx=335) Rare MUCUS (BEAKER) (test atti=0535) Rare SQUAMOUS EPITHELIAL (BEAKER) (test cvwv=420) 1 /HPF HYALINE CASTS (BEAKER) (test qoyq=065) 3 /LPF AMORPHOUS CRYSTALS (BEAKER) (test ecvu=7979) Rare SOURCE(BEAKER) (test jnbe=9090) Urine, Voided COMPREHENSIVE METABOLIC [id number] 07:45:00 Test Item Value Reference Range Comments TOTAL PROTEIN (BEAKER) 6.2 gm/dL 6.0-8.3 (test pnnz=096) ALBUMIN (BEAKER) (test 3.4 g/dL 3.5-5.0 ymkh=8022) ALKALINE PHOSPHATASE 53 U/L 40-150 (BEAKER) (test tgfq=374) BILIRUBIN TOTAL (BEAKER) 0.5 mg/dL 0.2-1.2 (test fius=839) SODIUM (BEAKER) (test 141 meq/L 136-145 ulct=332) POTASSIUM (BEAKER) (test 4.2 meq/L 3.5-5.1 zefy=224) CHLORIDE (BEAKER) (test 105 meq/L 98-107 bajq=136) CO2 (BEAKER) (test 21 meq/L 22-29 nzmr=831) BLOOD UREA NITROGEN 44 mg/dL 7-21 (BEAKER) (test flgx=194) CREATININE (BEAKER) (test 4.16 mg/dL 0.57-1.25 jsoo=403) GLUCOSE RANDOM (BEAKER) 121 mg/dL 70-105 (test guzx=656) CALCIUM (BEAKER) (test 7.6 mg/dL 8.4-10.2 xxee=759) AST (SGOT) (BEAKER) (test 12 U/L 5-34 ddxn=669) ALT (SGPT) (BEAKER) (test 7 U/L 6-55 yqab=550) EGFR (BEAKER) (test 17 mL/min/1.73 sq m ESTIMATED GFR IS NOT wlgy=9607) ACCURATE CREATININE CLEARANCE IN PREDICTING GLOMERULAR FILTRATION RATE. ESTIMATED GFR IS NOT APPLICABLE FOR DIALYSIS PATIENTS. CBC W/PLT COUNT & AUTO [id number] 05:44:00 Test Item Value Reference Range Comments WHITE BLOOD CELL COUNT (BEAKER) (test wpll=764) 17.6 K/ L 3.5-10.5 RED BLOOD CELL COUNT (BEAKER) (test jeag=852) 3.06 M/ L 4.63-6.08 HEMOGLOBIN (BEAKER) (test mfaw=266) 7.2 GM/DL 13.7-17.5 HEMATOCRIT (BEAKER) (test oxlu=600) 22.7 % 40.1-51.0 MEAN CORPUSCULAR VOLUME (BEAKER) (test luwb=556) 74.2 fL 79.0-92.2 MEAN CORPUSCULAR HEMOGLOBIN (BEAKER) (test 23.5 pg 25.7-32.2 qcds=702) MEAN CORPUSCULAR HEMOGLOBIN CONC (BEAKER) (test 31.7 GM/DL 32.3-36.5 bqbl=993) RED CELL DISTRIBUTION WIDTH (BEAKER) (test 15.2 % 11.6-14.4 qlvc=002) PLATELET COUNT (BEAKER) (test qwzj=723) 199 K/CU MM 150-450 MEAN PLATELET VOLUME (BEAKER) (test zsvo=046) 13.8 fL 9.4-12.4 NUCLEATED RED BLOOD CELLS (BEAKER) (test 0 /100 WBC 0-0 kgqo=872) NEUTROPHILS RELATIVE PERCENT (BEAKER) (test 88 % mdnm=891) LYMPHOCYTES RELATIVE PERCENT (BEAKER) (test 5 % gicu=641) MONOCYTES RELATIVE PERCENT (BEAKER) (test 6 % kkyr=683) EOSINOPHILS RELATIVE PERCENT (BEAKER) (test 0 % vrgr=209) BASOPHILS RELATIVE PERCENT (BEAKER) (test 0 % gcfk=146) NEUTROPHILS ABSOLUTE COUNT (BEAKER) (test 15.47 K/ L 1.78-5.38 piel=949) LYMPHOCYTES ABSOLUTE COUNT (BEAKER) (test 0.88 K/ L 1.32-3.57 bzjn=056) MONOCYTES ABSOLUTE COUNT (BEAKER) (test 1.12 K/ L 0.30-0.82 hoah=532) EOSINOPHILS ABSOLUTE COUNT (BEAKER) (test 0.00 K/ L 0.04-0.54 ruyr=484) BASOPHILS ABSOLUTE COUNT (BEAKER) (test 0.02 K/ L 0.01-0.08 ltnq=543) IMMATURE GRANULOCYTES-RELATIVE PERCENT (BEAKER) 1 % 0-1 (test gqun=2067) POCT-GLUCOSE [id number] 22:09:00 Test Item Value Reference Range Comments POC-GLUCOSE METER (BEAKER) 165 mg/dL 70-110 TESTED AT [facility] [address] (test khgr=1497) [place] [address] [id number] 16:51:00 Test Item Value Reference Range Comments PROTIME (BEAKER) (test ncrf=553) 17.9 seconds 11.7-14.7 INR (BEAKER) (test wgly=951) 1.5 <=5.9 PARTIAL THROMBOPLASTIN TIME (BEAKER) (test 23.0 seconds 22.5-36.0 eppz=332) RECOMMENDED COUMADIN/WARFARIN INR THERAPY RANGESSTANDARD DOSE: 2.0 - 3.0 Includes: PROPHYLAXIS forvenous thrombosis, systemic embolization; TREATMENT for venous thrombosis and/or pulmonary embolus.HIGH RISK: Target INR is 2.5-3.5 for patients with mechanical heart valves.POCT-GLUCOSE [id number] 16:36:00 Test Item Value Reference Range Comments POC-GLUCOSE METER (BEAKER) 222 mg/dL 70-110 TESTED AT [facility] [address] (test uyct=1364) [facility] [id number]
[2018-11-06 07:05] LABS: Absolute Lymphocytes (CBC) 2.1 K/uL (0.7-4.9); Absolute Monocytes 1.1 K/uL (0.1-1.3); Absolute Neutrophil 9.9 K/uL (1.8-8.0); Basophils % 0.8 % (0-1.3); Eosinophils % 1.3 % (0-4.4); Hematocrit 34.7 % (39.6-49.0); Lymphocytes % 15.5 % (15.3-44.8); MPV 10.4 fL (7.6-11.3); Monocytes % 8.4 % (3.3-12.3); RBC Red Blood Cell Count 4.74 M/uL (4.33-5.43)
[2018-11-06] MEDS ORDERED: FUROSEMIDE 100 MG/10 ML VIAL IV ONE (07:21)
[2018-11-06] MEDS ORDERED: cloNIDine HCl 0.1 MG TAB ONE (07:21)
[2018-11-06 07:56] LABS: Bilirubin Direct 0.1 mg/dL (0-0.2); Bilirubin Total 0.3 mg/dL (0.2-1.0); Magnesium 2.2 mg/dL (1.8-2.4); Potassium 3.9 mmol/L (3.5-5.1); Protein, Total 7.2 g/dL (6.4-8.2); Troponin (Emerg Dept Use Only) 0.07 ng/mL (0.0-0.045)
[2018-11-06 07:59] LABS: Protime INR 1.11
--- NOTE | 2018-11-06 08:45 | RAD REPORT ---
EXAM DESCRIPTION: RAD - Chest Single View - 11/06/2018 6:56 am CLINICAL HISTORY: Shortness of breath, respiratory distress, bilateral lower extremity edema COMPARISON: October 2017 TECHNIQUE: AP portable chest image was obtained 0641 hours . FINDINGS: Lung volumes are low. Interstitial and alveolar opacification are present. Heart size is e nlarged but not substantially different. Central vasculature is increased over the comparison. Trache a is midline. No large pleural effusions seen. No pneumothorax. No acute bony abnormality seen. No ac [place] aortic findings suspected. IMPRESSION: Moderate CHF/volume overload pattern.
--- NOTE | 2018-11-06 09:19 | RAD REPORT ---
EXAM DESCRIPTION: CT - Abdomen Pelvis Wo Contrast - 11/06/2018 9:00 am CLINICAL HISTORY: Lower extremity edema, respiratory distress, abdominal pain, prostate cancer, hype rtension COMPARISON: Chest films same date, CT study October 2017 TECHNIQUE: Axial [address] imaging of the abdomen and pelvis was performed without IV contrast. No IV contrast was given because of allergy, abnormal renal function, patient refusal or physician re quest. No oral contrast administered. All CT scans are performed using dose optimization technique as appropriate and may include automated exposure control or mA/KV adjustment according to patient size. FINDINGS: Moderate bilateral pleural effusions are present with lung base atelectasis. These are onl y partially imaged. Cardiomegaly is present with minimal pericardial effusion. The liver, spleen and pancreas show no suspicious findings on non-contrast imaging. Small sub centime ter sized gallstones layer in the dependent portion of the gallbladder. No biliary tree dilatation. No acute adrenal gland finding. No hydronephrosis of the right kidney. Renal function cannot be asses sed. There are multiple variably sized and variable density rounded masses of the right kidney. No gr oss change from the prior study. Trace amount of perinephric stranding seen. These are probably a com bination of simple cysts with the hyperdensity masses representing either cysts with hemorrhage or hi gh protein content cysts. Left kidney remains grossly abnormal. There is a 10 centimeter cyst in the upper pole of the left ki dney that has enlarged from the examination 1 year earlier. Multiple variably sized low-density grace s are present in the mid and lower left kidney. There is a minimal amount of stranding in the perinep hric fat. The variably sized masses have the same etiology as the right kidney. An active hemorrhagic process within the left kidney is probably not present. Isodense renal masses and pyelonephritis can not be excluded in the absence of IV contrast. Prostatectomy changes are present. Numerous surgical clips are seen. No urinary bladder acute finding . Right anterior soft tissue opacification has not changed. No dilated bowel loops or bowel wall thickening. No free air, free fluid or inflammatory stranding. N o hernia, mass or bulky lymphadenopathy. No acute GI process suspected. Disc and bony degenerative changes are present. No acute process seen. IMPRESSION: No obstruction, free air or surgically emergent finding identifiable. Moderate bilateral pleural effusions and lung base atelectasis along with cardiomegaly. Lung base fin dings an earlier chest film findings support CHF/ volume overload. Grossly abnormal kidneys. There are multiple variably sized and a variable density round masses in th e kidneys. These have the appearance of benign cysts and cysts that are either high protein content o r old hemorrhage content cysts. Patient has a 10 centimeter upper pole left renal cyst that has enlar ged from 1 year earlier. There is significant heterogeneity of the left kidney. A significant acute intraparenchymal hemorrhag ic process is not likely. Current or active hemorrhage within 1 or more of the cysts would be possibl e. The absence of IV contrast limits assessment of any active bleeding process. Additional nonacute findings detailed in the body of the report.
--- NOTE | 2018-11-06 10:27 | EDPHYS ---
Physician Documentation [facility] Name: Steve Lopez Jr Age: 77 yrs Sex: Male : 1940 Arrival Date: 11/06/2018 Time: 06:40 Bed 2 Private MD: ED Physician Saturnino Kaplan HPI: 11/06 07:15 This 77 yrs old Black Male presents to ER via EMS with complaints of Respiratory kdr Distress. 07:15 The patient has shortness of breath at rest, with light activity. Onset: The kdr symptoms/episode began/occurred suddenly, this morning. Duration: The symptoms are continuous, and are steadily getting worse. The patient's shortness of breath is aggravated by exertion, light activity. Associated signs and symptoms: The patient has no apparent associated signs or symptoms. Severity of symptoms: At their worst the symptoms were moderate severe incapacitating just prior to arrival, in the emergency department the symptoms are unchanged. The patient has experienced a previous episode. It is unknown whether or not the patient has recently seen a physician. EMS placed patient on BiPAP - the patient is tolerating well. Saturation 100% at time of initial evaluation. Historical: - Allergies: 06:51 No Known Allergies; tl2 - Home Meds: 06:51 acarbose 50 mg Oral tab 1 tab 3 times per day [Active]; allopurinol 100 mg Oral tab tl2 every morning [Active]; atorvastatin 10 mg Oral tab 1 tab once daily [Active]; clonidine HCl 0.1 mg Oral tab 3 times per day [Active]; furosemide 40 mg Oral tab 1 tab once daily [Active]; lisinopril 20 mg Oral tab every morning [Active]; metolazone 2.5 mg Oral tab once a week on [Active]; metoprolol ER succinate 50mg every morning 50 mg every morning [Active]; minoxidil 2.5 mg Oral tab once a week on [Active]; - PMHx: 06:51 Diabetes - IDDM; Hypertension; Prostate Cancer; tl2 - Immunization history:: Adult Immunizations up to date. - Social history:: Smoking status: unknown. - Ebola Screening: : No symptoms or risks identified at this time. ROS: 07:15 Constitutional: Negative for fever, chills, and weight loss, Eyes: Negative for injury, kdr pain, redness, and discharge, Neck: Negative for injury, pain, and swelling, Cardiovascular: Negative for chest pain, palpitations, and edema, Abdomen/GI: Negative for abdominal pain, nausea, vomiting, diarrhea, and constipation, Back: Negative for injury and pain, : Negative for injury, bleeding, discharge, and swelling, Skin: Negative for injury, rash, and discoloration, Neuro: Negative for headache, weakness, numbness, tingling, and seizure activity. Psych: Negative for depression, anxiety, suicide ideation, homicidal ideation, and hallucinations, Allergy/Immunology: Negative for hives, rash, and allergies, Endocrine: Negative for neck swelling, polydipsia, polyuria, polyphagia, and marked weight changes, Hematologic/Lymphatic: Negative for swollen nodes, abnormal bleeding, and unusual bruising. 07:15 Respiratory: Positive for dyspnea on exertion, shortness of breath, wheezing, Negative for hemoptysis, orthopnea, pleurisy. 07:15 MS/extremity: Positive for Significant chronic lymphedema that is somewhat improved over normal. Exam: 07:15 Constitutional: This is a well developed, well nourished patient who is awake, alert, kdr and in mild distress. On BiPAP and tolerating well Head/Face: Normocephalic, atraumatic. Eyes: Pupils equal round and reactive to light, extra-ocular motions intact. Lids and lashes normal. Conjunctiva and sclera are non-icteric and not injected. Cornea within normal limits. Periorbital areas with no swelling, redness, or edema. Neck: Trachea midline, no thyromegaly or masses palpated, and no cervical lymphadenopathy. Supple, full range of motion without nuchal rigidity, or vertebral point tenderness. No Meningismus. Chest/axilla: Normal chest wall appearance and motion. Nontender with no deformity. No lesions are appreciated. Cardiovascular: Regular rate and rhythm with a normal S1 and S2. No gallops, murmurs, or rubs. Normal PMI, no JVD. No pulse deficits. Abdomen/GI: Soft, non-tender, with normal bowel sounds. No distension or tympany. No guarding or rebound. The patient states that his abdomen is normally obese and currently unchanged from normal Back: No spinal tenderness. No costovertebral tenderness. Full range of motion. Skin: Warm, dry with normal turgor. Normal color with no rashes, no lesions, and no evidence of cellulitis. MS/ Extremity: Pulses equal, no cyanosis. Neurovascular intact. Full, normal range of motion. Neuro: Awake and alert, GCS 15, oriented to person, place, time, and situation. Cranial nerves II-XII grossly intact. Motor strength 5/5 in all extremities. Sensory grossly intact. Cerebellar exam normal. Normal gait. Psych: Awake, alert, with orientation to person, place and time. Behavior, mood, and affect are within normal limits. Vital Signs: 06:51 BP 270 / 113; Pulse 81; Resp 30; Temp 97.4; Pulse Ox 100% on 100% BiPAP; Weight 99.79 tl2 kg; Height 5 ft. 8 in. (172.72 cm); 07:24 BP 246 / 88; Pulse 68; Resp 25; Pulse Ox 98% on 45% BiPAP; la1 07:49 BP 229 / 69; Pulse 56 MON; la1 08:06 BP 189 / 78; Pulse 51; Resp 23; Pulse Ox 98% on 45% BiPAP; la1 08:52 BP 221 / 79; Pulse 50; Resp 23; Pulse Ox 98% on 50% BiPAP; la1 09:46 BP 188 / 68; Pulse 51; Resp 16; Pulse Ox 98% on 4 lpm NC; la1 10:29 BP 238 / 97; Pulse 74; Resp 22; Pulse Ox 100% on 4 lpm NC; la1 06:51 Body Mass Index 33.45 (99.79 kg, 172.72 cm) tl2 07:49 Irregular, la1 MDM: 10:26 Patient medically screened. kdr 10:26 Data reviewed: vital signs, nurses notes, lab test result(s), radiologic studies. kdr Counseling: I had a detailed discussion with the patient and/or guardian regarding: the historical points, exam findings, and any diagnostic results supporting the discharge/admit diagnosis, lab results, radiology results, the need for further work-up and treatment in the hospital. 11/06 06:42 Order name: Basic Metabolic Panel; Complete Time: 08:16 aa1 11/06 06:42 Order name: CBC with Diff; Complete Time: 08:16 aa1 11/06 06:42 Order name: LFT's; Complete Time: 08:16 aa1 11/06 06:42 Order name: Magnesium; Complete Time: 08:16 [facility] 11/06 06:42 Order name: NT PRO-BNP; Complete Time: 08:16 [facility] 11/06 06:42 Order name: PT-INR; Complete Time: 08:16 [facility] 11/06 06:42 Order name: BIPAP [facility] 11/06 06:42 Order name: Troponin (emerg Dept Use Only); Complete Time: 08:16 [facility] 11/06 06:42 Order name: XRAY Chest (1 view); Complete Time: 09:41 [facility] 11/06 08:29 Order name: CT Abd/Pelvis - Without Cont; Complete Time: 09:41 kdr 11/06 13:07 Order name: Urine Dipstick--Ancillary (enter results) 11/06 13:21 Order name: Urinalysis [facility] 11/06 13:27 Order name: Urine Dipstick-Ancillary [facility] 11/06 13:32 Order name: Urine Microscopic Only [facility] 11/06 06:42 Order name: EKG; Complete Time: 06:43 [facility] 11/06 06:42 Order name: Cardiac monitoring; Complete Time: 06:51 [facility] 11/06 06:42 Order name: EKG - Nurse/Tech; Complete Time: 06:51 [facility] 11/06 06:42 Order name: IV Saline Lock; Complete Time: 06:51 [facility] 11/06 06:42 Order name: Labs collected and sent; Complete Time: 06:52 [facility] 11/06 06:42 Order name: O2 Per Protocol; Complete Time: 06:51 [facility] 11/06 06:42 Order name: O2 Sat Monitoring; Complete Time: 06:51 [facility] 11/06 07:11 Order name: Labs - recollect needed; Complete Time: 07:28 11/06 11:31 Order name: US EDVT Administered Medications: 07:22 Drug: Lasix 80 mg Route: IVP; Site: right wrist; la1 10:17 Follow up: Response: Increased urine output la1 07:22 Drug: cloNIDine 0.2 mg Route: PO; la1 10:17 Follow up: Response: No adverse reaction; Blood pressure is lowered la1 Disposition: 11/06/18 10:26 Hospitalization ordered by Joe Wilson for Inpatient Admission. Preliminary diagnosis is Congestive Heart Failure, Shortness of Breath, Chronic Renal Failure. - Bed requested for Intensive Care Unit. - Status is Inpatient Admission. la1 - Condition is Fair. - Problem is an ongoing problem. - Symptoms have improved. UTI on Admission? No Signatures: Dispatcher [employer] EDMS Mairayoseph RupaElza Huizar RN RN aa1 Saturnino Kaplan MD MD kdr Williams, Irene, RN RN iw Doug Hernadze RN RN la1 Marie Patrick RN RN tl2 Corrections: (The following items were deleted from the chart) 11:42 10:26 Hospitalization Ordered by RxResultsbossman DO for Inpatient Admission. Preliminary iw diagnosis is Congestive Heart Failure, Shortness of Breath, Chronic Renal Failure. Bed requested for Telemetry/MedSurg (Inpatient). Status is Inpatient Admission. Condition is Fair. Problem is an ongoing problem. Symptoms have improved. UTI on Admission? No. kdr 11:42 11:42 11/06/2018 10:26 Hospitalization Ordered by Joe ARKeXbossman KANG for Inpatient iw Admission. Preliminary diagnosis is Congestive Heart Failure, Shortness of Breath, Chronic Renal Failure. Bed requested for [facility] ER HOLD. Status is Inpatient Admission. Condition is Fair. Problem is an ongoing problem. Symptoms have improved. UTI on Admission? No. iw 13:00 11:42 11/06/2018 10:26 Hospitalization Ordered by Joe ARKeXbossman for Inpatient la1 Admission. Preliminary diagnosis is Congestive Heart Failure, Shortness of Breath, Chronic Renal Failure. Bed requested for [facility] ER HOLD. Status is Inpatient Admission. Condition is Fair. Problem is an ongoing problem. Symptoms have improved. UTI on Admission? No. iw 13:53 13:00 11/06/2018 10:26 Hospitalization Ordered by Joe ARKeXbossman for Inpatient la1 Admission. Preliminary diagnosis is Congestive Heart Failure, Shortness of Breath, Chronic Renal Failure. Bed requested for Intensive Care Unit. Status is Inpatient Admission. Condition is Fair. Problem is an ongoing problem. Symptoms have improved. UTI on Admission? No. la1
--- NOTE | 2018-11-06 10:27 | ER ---
Nurse's Notes [facility] Name: Steve Lopez Jr Age: 77 yrs Sex: Male : 1940 Arrival Date: 11/06/2018 Time: 06:40 Bed 2 Private MD: Diagnosis: Congestive Heart Failure, Shortness of Breath, Chronic Renal Failure Presentation: 11/06 06:47 Presenting complaint: EMS states: Respiratory distress and KANWAL lower extremity tl2 swelling. Pt placed on BiPap, improved breathing slightly. Pt is hypertensive. Transition of care: patient was not received from another setting of care. Onset of symptoms was November 06, 2018 at 05:30. Risk Assessment: Do you want to hurt yourself or someone else? Patient reports no desire to harm self or others. Initial Sepsis Screen: Does the patient meet any 2 criteria? RR > 20 per min. Does the patient have a suspected source of infection? No. Patient's initial sepsis screen is negative. Care prior to arrival:. 06:47 Method Of Arrival: EMS: [facility] tl2 06:47 Acuity: NATHANIEL 1 tl2 Triage Assessment: 06:51 General: Appears in no apparent distress. uncomfortable, Behavior is calm, cooperative, tl2 appropriate for age. Pain: Denies pain. Neuro: Level of Consciousness is awake, alert, obeys commands, Oriented to person, place, time, situation. Cardiovascular: Edema is 3+ to left midcalf, left ankle, right midcalf and right ankle pitting to left midcalf, left ankle, right midcalf and right ankle Rhythm is sinus rhythm. Respiratory: Reports shortness of breath labored breathing Airway is patent Respiratory effort is labored, using tripod position, Respiratory pattern is tachypnea Onset: The symptoms/episode began/occurred this morning, the patient has moderate shortness of breath. GI: No signs and/or symptoms were reported involving the gastrointestinal system. Historical: - Allergies: 06:51 No Known Allergies; tl2 - Home Meds: 06:51 acarbose 50 mg Oral tab 1 tab 3 times per day [Active]; allopurinol 100 mg Oral tab tl2 every morning [Active]; atorvastatin 10 mg Oral tab 1 tab once daily [Active]; clonidine HCl 0.1 mg Oral tab 3 times per day [Active]; furosemide 40 mg Oral tab 1 tab once daily [Active]; lisinopril 20 mg Oral tab every morning [Active]; metolazone 2.5 mg Oral tab once a week on [Active]; metoprolol ER succinate 50mg every morning 50 mg every morning [Active]; minoxidil 2.5 mg Oral tab once a week on [Active]; - PMHx: 06:51 Diabetes - IDDM; Hypertension; Prostate Cancer; tl2 - Immunization history:: Adult Immunizations up to date. - Social history:: Smoking status: unknown. - Ebola Screening: : No symptoms or risks identified at this time. Screenin:57 Abuse screen: Denies threats or abuse. Nutritional screening: No deficits noted. tl2 Tuberculosis screening: No symptoms or risk factors identified. Fall Risk IV access (20 points). Assessment: 07:22 General: Appears in no apparent distress. Behavior is cooperative. Pain: Denies pain. la1 Neuro: Level of Consciousness is awake, alert, obeys commands, Oriented to person, place, time, situation. Cardiovascular: Heart tones S1 S2 present Capillary refill < 3 seconds Patient's skin is warm and dry. Edema is 3+ to left midcalf, left ankle, left foot, right midcalf, right ankle and right foot Rhythm is sinus rhythm Chest pain is denied. Respiratory: Reports shortness of breath Airway is patent Respiratory effort is even, labored, Respiratory pattern is regular, symmetrical, Breath sounds are diminished bilaterally. the patient has severe shortness of breath. GI: No signs and/or symptoms were reported involving the gastrointestinal system. Abdomen is obese, Bowel sounds present X 4 quads. : No signs and/or symptoms were reported regarding the genitourinary system. 08:22 Reassessment: Patient appears in no apparent distress at this time. No changes from la1 previously documented assessment. Patient and/or family updated on plan of care and expected duration. Pain level reassessed. 09:05 Reassessment: Pt taken to CT on venti-mask, tolerated well, Respiratory effort normal. la1 Pt put on nasal canula at 4L per ERP. 10:17 Reassessment: Patient appears in no apparent distress at this time. No changes from la1 previously documented assessment. Patient and/or family updated on plan of care and expected duration. Pain level reassessed. Patient is alert, oriented x 3, equal unlabored respirations, skin warm/dry/pink. Vital Signs: 06:51 BP 270 / 113; Pulse 81; Resp 30; Temp 97.4; Pulse Ox 100% on 100% BiPAP; Weight 99.79 tl2 kg; Height 5 ft. 8 in. (172.72 cm); 07:24 BP 246 / 88; Pulse 68; Resp 25; Pulse Ox 98% on 45% BiPAP; la1 07:49 BP 229 / 69; Pulse 56 MON; la1 08:06 BP 189 / 78; Pulse 51; Resp 23; Pulse Ox 98% on 45% BiPAP; la1 08:52 BP 221 / 79; Pulse 50; Resp 23; Pulse Ox 98% on 50% BiPAP; la1 09:46 BP 188 / 68; Pulse 51; Resp 16; Pulse Ox 98% on 4 lpm NC; la1 10:29 BP 238 / 97; Pulse 74; Resp 22; Pulse Ox 100% on 4 lpm NC; la1 06:51 Body Mass Index 33.45 (99.79 kg, 172.72 cm) tl2 07:49 Irregular, la1 ED Course: 06:40 Patient arrived in ED. am2 06:49 Triage completed. tl2 06:50 Ernestine Cummings, RN is Primary Nurse. ak1 06:51 XRAY Chest (1 view) Sent. ak1 06:51 Arm band placed on right wrist. tl2 06:52 BIPAP Sent. ak1 06:54 X-ray completed. Portable x-ray completed in exam room. Patient tolerated procedure sg4 well. 06:55 XRAY Chest (1 view) In Process Unspecified. EDMS 06:57 Inserted saline lock: 20 gauge in right hand, using aseptic technique. Blood collected. tl2 placed by LUIS A Sinha. 06:57 Patient has correct armband on for positive identification. Bed in low position. Call tl2 light in reach. Side rails up X2. 07:13 Saturnino Kaplan MD is Attending Physician. kdr 07:27 Doug Hernadez, RN is Primary Nurse. la1 07:35 Lab(s) recollected, by me, sent to lab. dh3 08:59 CT completed. Patient tolerated procedure well. Patient moved to CT via stretcher. vr Patient moved back from CT. 09:00 CT Abd/Pelvis - Without Cont In Process Unspecified. EDMS 10:24 Joe Wilson is Hospitalizing Provider. kdr 11:10 First set of blood cultures drawn by me. Inserted saline lock: 22 gauge in left wrist, 3 using aseptic technique. Blood collected. 11:25 Second set of blood cultures drawn by me. dh3 13:16 add on labs drawn by me and sent to lab. 3 13:19 No provider procedures requiring assistance completed. Patient admitted, IV remains in la1 place. Administered Medications: 07:22 Drug: Lasix 80 mg Route: IVP; Site: right wrist; la1 10:17 Follow up: Response: Increased urine output la1 07:22 Drug: cloNIDine 0.2 mg Route: PO; la1 10:17 Follow up: Response: No adverse reaction; Blood pressure is lowered la1 Outcome: 10:26 Decision to Hospitalize by Provider. kdr 10:26 Admitted to ER Hold. [facility] for further documentation. la1 10:26 Condition: stable 10:26 Instructed on the need for admit. 13:53 Patient left the ED. la1 Signatures: Dispatcher [employer] EDMS Saturnino Kaplan MD MD kdr Davis, Victoria vr Attema, Lee RN RN la1 Ernestine Cummings RN RN Marie Perez RN RN krystina2 Theresa Woody Deanna 3 Cinthya Corrales 4 Corrections: (The following items were deleted from the chart) 07:28 07:24 BP 246 / 88; Pulse 68bpm; Resp 25bpm; Pulse Ox 100% BiPAP; la1 la1
[2018-11-06] MEDS ORDERED: ONDANSETRON 4 MG/2 ML VIAL IV PRN (10:39)
[2018-11-06] MEDS ORDERED: HYDRALAZINE HCL 20 MG/ML VIAL IV PRN (10:39)
[2018-11-06] MEDS ORDERED: ACETAMINOPHEN 500 MG TAB PO PRN (10:39)
[2018-11-06] MEDS ORDERED: HYDRALAZINE HCL 20 MG/ML VIAL ONE (11:04)
--- NOTE | 2018-11-06 11:29 | RAD REPORT ---
EXAM DESCRIPTION: US - Renal Ultrasound-Complete - 11/06/2018 11:17 am CLINICAL HISTORY: Acute on chronic kidney dz, Multi-cysts COMPARISON: Renal Ultrasound-Complete dated 12/21/2016; Abdomen Pelvis Wo Contrast dated 11/06/2018; Abdomen Pelvis Wo Contrast dated 10/21/2017; Stone Protocol dated 12/22/2016 FINDINGS: Both kidneys are echogenic compatible with underlying medical renal disease. Multiple shavonne ical cysts are present bilaterally, including a large cyst emanating from the superior posterior aspe ct of the left kidney measuring 9.4 x 8.7 x 8.2 cm. The large cyst has slightly complex internal appe arance. The right kidney measures 13.2 x 7.2 x 7.2 cm. No hydronephrosis, focal mass or perinephric fluid. The left kidney measures 13.8 x 8.8 x 7.9 cm. No hydronephrosis, focal mass or perinephric fluid. The urinary bladder is incompletely distended without gross abnormality seen. IMPRESSION: Bilateral echogenic kidneys compatible with medical renal disease. Multiple cysts are present involving both kidneys, including a large benign-appearing 9 cm superior l eft renal cyst. The large 9 cm cyst has a slightly complex internal appearance.
[2018-11-06] MEDS: INSULIN -REGULAR HUMAN 50 UNIT/0.5 ML ML SQ SCH ×3 (11:30→20:06)
[2018-11-06] MEDS ORDERED: INFLUENZA VACCINE (for 3y+) 0.5 ML DOSE IMVAC ONE (12:00)
[2018-11-06] MEDS ORDERED: LISINOPRIL 10 MG TAB ONE (13:13)
[2018-11-06 13:18] LABS: Urine Appearance CLEAR; Urine Bilirubin NEGATIVE (NEG); Urine Blood TRACE (NEG); Urine Color YELLOW; Urine Glucose NEGATIVE (NEG); Urine Protein 2+ (NEG); Urine Urobilinogen 0.2 mg/dL (0.2-1.0)
[2018-11-06] MEDS: DOXAZOSIN 2 MG TAB PO SCH ×2 (13:18→21:14)
[2018-11-06 13:20] LABS: Urine Microscopic Reflex ORDER UMIC
[2018-11-06 13:26] LABS: Urine Blood TRACE (NEG); Urine Glucose NEGATIVE (NEG); Urine Protein 3+ (NEG); Urine pH 5.5 (5.0-7.0)
[2018-11-06 13:31] LABS: Urine Bacteria <20 /HPF (NONE SEEN); Urine Culture Reflex Order NOT NEEDED
[2018-11-06 13:32] LABS: Urine Amorphous Sediment 2+ /HPF (NONE SEEN)
--- NOTE | 2018-11-06 13:47 | P.HP ---
Certification for Inpatient Patient admitted to: Inpatient With expected LOS: >2 Midnights Patient will require the following post-hospital care: None Practitioner: I am a practitioner with admitting privileges, knowledge of patient current condition, hospital course, and medical plan of care. Services: Services provided to patient in accordance with Admission requirements found in Title 42 Section 412.3 of the Code of Federal Regulations Patient History Date of Service: 11/06/18 Primary Care Provider: Dr. Roth; Nephrology-Dr. Mercedes; Oncology-Dr. Cunningham Reason for admission: Shortness of breath History of Present Illness: 77-year-old male presented emergency room with increasing shortness of breath. Shortness of breath has gotten worse over the past week. He also has noted increasing edema to the lower extremities. Blood pressure also elevated. He denies any chest pain, fever, chills or hematuria. Patient has multiple medical problems including history of prostate cancer with prostatectomy, chronic renal disease, hypertension, and diabetes. In the ER patient was evaluated. Patient required BiPAP upon admission. Patient was given 80 mg of Lasix and clonidine to help with his elevated blood pressure. This has improved. Currently lab with a white count of 13.4, hemoglobin 10.9, [place] [address], troponin 0.07. Sodium 142, potassium 3.9, chloride 109, bicarb 25, BUN of 35, creatinine 2.9 with a GFR 25. Glucose 160. Chest x-ray shows volume overload bilateral. CT abdomen shows bilateral pleural effusions. Patient with multi cystic kidney disease. I was asked to admit the patient. Patient currently stable on nasal cannula at this time. Blood pressure slightly elevated. Patient will go to ICU for closer monitoring. Allergies No Known Allergies Allergy (Verified 12/12/16 22:05) Home medications list reviewed: Yes Home Medications: Atorvastatin Calcium [Lipitor*] 10 mg PO DAILY 12/12/16 Metoprolol Succinate [Toprol Xl*] 50 mg PO DAILY #30 tab 12/14/16 Allopurinol [Zyloprim*] 100 mg PO DAILY #30 tab 12/25/16 Furosemide 40 mg PO DAILY 11/06/18 Hydralazine HCl 50 mg PO Q8HR 11/06/18 Lisinopril 20 mg PO DAILY 11/06/18 cloNIDine HCl [Catapres*] 0.1 mg PO TID 11/06/18 - Past Medical/Surgical History Has patient received pneumonia vaccine in the past: Yes Diabetic: Yes -: Diabetes mellitus type 2 -: Hypertension -: History of prostate cancer with prostatectomy -: Chronic renal disease, multi cystic kidney disease -: CHF -: CAD -: Prostate surgery about 20 years ago Psychosocial/ Personal History: The patient is . He has 3 children. - Family History Father -: Heart disease, Hypertension - Social History Smoking Status: Former smoker Alcohol use: No CD- Drugs: No Caffeine use: Yes Place of Residence: Home Review of Systems General: Weakness, Malaise, As per HPI Eyes: Unremarkable ENT: Unremarkable Respiratory: Shortness of Breath, SOB with Excertion, As per HPI Cardiovascular: Paroxysmal Noc. Dyspnea, Edema, As per HPI Gastrointestinal: Unremarkable Genitourinary: Unremarkable Musculoskeletal: Pedal edema, As per HPI Integumentary: Unremarkable Neurological: Unremarkable Lymphatics: Unremarkable Physical Examination - Vital Signs Temperature: 97.9 F Blood Pressure: 206/81 Pulse: 62 Respirations: 22 Pulse Ox (%): 99 - Physical Exam General: Alert, Oriented x3, Cooperative, Mild distress (Patient on nasal cannula) HEENT: Atraumatic, Normocephalic, Mucous membr. moist/pink Neck: Supple, No Thyromegaly Respiratory: Diminished (Bilateral but improved), Crackles/rales (To the lower bases bilateral) Cardiovascular: Normal pulses, Regular rate/rhythm Gastrointestinal: Normal bowel sounds, Soft and benign, Non-distended, No tenderness, No masses, No rebound, No guarding Musculoskeletal: No erythema, No tenderness, No warmth Integumentary: No warmth, No cyanosis, Tenderness/swelling (1 to 2+ pitting edema to the lower extremities below the knee bilateral) Neurological: Normal speech, Normal strength at 5/5 x4 extr, Normal tone, Normal affect Lymphatics: No axilla or inguinal lymphadenopathy - Studies Laboratory Data (last 24 hrs) 11/06/18 07:29: PT 13.1 H, INR 1.11 11/06/18 07:29: Sodium 142, Potassium 3.9, BUN 35 H, Creatinine 2.95 H, Glucose 160 H, Magnesium 2.2, Total Bilirubin 0.3, AST 15, ALT 15, Alkaline Phosphatase 104 11/06/18 06:40: WBC 13.4 H D, Hgb 10.9 L, Hct 34.7 L D, Plt Count 298 D Assessment and Plan - Plan Impression: Acute on chronic respiratory failure likely systolic CHF exacerbation with noted bilateral pleural effusion 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 Will maintain sats above 90%. Patient recently on BiPAP now on nasal cannula. Will maintain a 1500 cc per day fluid restriction. Will continue with Lasix 40 mg IV b.i.d.. Will consult cardiology to further assess. Will obtain echocardiogram and monitor cardiac enzymes. Pulmonology also consulted further address his underlying respiratory failure. Will need to consider pulmonary disease. Will have respiratory wean off oxygen. Will monitor closely. 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 Renal function slightly compromise. Patient requires IV Lasix due to his underlying CHF. Will discontinue lisinopril. Will need to monitor medication per renal function. Will obtain abdominal ultrasound to further evaluate. Diabetes mellitus type 2: Will continue sliding scale. Will monitor closely. Will obtain and address home medication. Hypertension uncontrolled: Blood pressure elevated. Will start Doxazodin and nifedipine. Will discontinue Norvasc due to edema. Will discontinue lisinopril due to acute on chronic renal disease. Will discontinue metoprolol due to low heart rate. Will monitor and adjust appropriately. Await further recommendations from cardiology. Will provide IV hydralazine as needed. Anemia likely of chronic disease: Will check iron and B12 studies. Will monitor closely. Discharge Plan: Home Plan to discharge in: Greater than 2 days - Advance Directives Does patient have a Living Will: No Does patient have a Durable POA for Healthcare: Yes - Code Status/Comfort Care Code Status Assessed: Yes (Patient full code.) Time Spent Managing Pts Care (In Minutes): 55
[2018-11-06] MEDS ORDERED: LISINOPRIL 10 MG TAB PO SCH ×2 (14:00→21:00)
[2018-11-06 14:03] LABS: Ferritin 35.9 ng/mL (26-388); Thyroid Stimulating Hormone 0.602 uIU/mL (0.360-3.740)
[2018-11-06] MEDS: cloNIDine HCl 0.1 MG TAB PO SCH ×2 (14:25→20:10)
--- NOTE | 2018-11-06 15:06 | ECHO ---
HEIGHT: 5 ft 10 in WEIGHT: 204 lb 0 oz DATE OF STUDY: 11/06/[address]: Joe Wilson DO 2-DIMENSIONAL: YES M.MODE: YES DOPPLER: YES COLOR FLOW: YES TDS: NO PORTABLE: NO DEFINITY: NO BUBBLE STUDY: NO DIAGNOSIS: CONGESTIVE HEART FAILURE CARDIAC HISTORY: CATHERIZATION: NO SURGERY: NO PROSTHETIC VALVE: NO PACEMAKER: NO MEASUREMENTS (cm) DIASTOLIC (NORMALS) SYSTOLIC (NORMALS) IVSd 1.3 (0.6-1.2) LA Diam 4.1 (1.9-4.0) LVEF 60% LVIDd 4.8 (3.5-5.7) LVIDs 3.3 (2.0-3.5) %FS 32% LVPWd 1.4 (0.6-1.2) Ao Diam 2.9 (2.0-3.7) 2 DIMENSIONAL ASSESSMENT: RIGHT ATRIUM: NORMAL LEFT ATRIUM: DILATED RIGHT VENTRICLE: NORMAL LEFT VENTRICLE: LEFT VENTRICULAR HYPERTROPHY TRICUSPID VALVE: NORMAL MITRAL VALVE: NORMAL PULMONIC VALVE: NORMAL AORTIC VALVE: SCLEROSIS PERICARDIAL EFFUSION: NONE AORTIC ROOT: NORMAL LEFT VENTRICULAR WALL MOTION: NORMAL EJECTION FRACTION. DOPPLER/COLOR FLOW: TRACE TRICUSPID REGURGITATION. COMMENTS: LEFT VENTRICULAR HYPERTROPHY. NORMAL LEFT VENTRICULAR EJECTION FRACTION. DECREASED LEFT VENTRICULAR COMPLIANCE. DILATED LEFT ATRIUM. AORTIC SCLEROSIS. TRACE TRICUSPID REGURGITATION. TECHNOLOGIST: Cristian SAM
[2018-11-06 15:56] LABS: CKMB Creatine Kinase MB 3.4 ng/mL (0.3-3.6); Troponin I 0.44 ng/mL (0.0-0.045)
[2018-11-06] MEDS: ENOXAPARIN 30 MG/0.3 ML SQ SCH (16:53)
[2018-11-06] MEDS: FUROSEMIDE 40 MG/4 ML VIAL IV SCH (16:53)
[2018-11-06] MEDS ORDERED: FUROSEMIDE 40 MG/4 ML VIAL IV SCH (17:00)
[2018-11-06] MEDS: NIFEDIPINE XL 30 MG TABLET PO SCH (18:38)
[2018-11-06] MEDS ORDERED: DOXAZOSIN 2 MG TAB PO SCH (21:00)
--- NOTE | 2018-11-06 21:15 | CON ---
Date of Consultation: 11/06/[address] Wilson' service on 11/06/2018. Reason For Consultation: Congestive heart failure. History Of Present Illness: Mr. Lopez is a 77-year-old black male with history of prostate cancer, chronic diastolic congestive heart failure, hypertension, and diabetes, who came in with PND, orthopn ea, and pedal edema. Denied palpitation or syncope. Denies chest pain, nausea, vomiting, or diaphor esis. Chest x-ray and clinical examination were consistent with congestive heart failure. His BNP w as 11,440. His troponin was 0.07. Chest x-ray and CT scan showed congestive heart failure. Renal u ltrasound shows medical renal disease with multiple cysts, some of them are complex and large and the y have changed in size over the last year. The patient has diuresed almost 3-4 L since I saw him on IV Lasix and he is feeling much better. Oxygen saturation is adequate. Past Medical History: As stated above. Allergies: NONE. Review of Systems: Negative. Social History: Negative for tobacco, alcohol, or drugs. Family History: Positive for hypertension. Medications At Home: Include allopurinol, Lipitor, Lasix, hydralazine, lisinopril, metoprolol, and c lonidine. Physical Examination: VITAL SIGNS: Blood pressure remained high at 206/81. GENERAL: He was in sinus rhythm, afebrile and in no acute distress. HEENT: Negative. Neck: Supple without any bruit, lymphadenopathy, JVD, or thyromegaly. Chest: Revealed rales both bases. Cardiac: Revealed a regular rhythm and rate with an S4 gallops. Abdomen: Benign. Extremities: Revealed no clubbing, cyanosis, or edema. Skin: Dry and intact. Extremities: Pulses were present bilaterally. Diagnostic Data: Stated earlier that includes a glucose of 197, creatinine of 2.95, white count of 1 3.4. Impression And Plan: 1.Oyzxo-ed-srkwczs diastolic congestive heart failure. Echocardiogram is pending. 2.Diabetes. 3.Hypertension. 4.Dyslipidemia. 5.History of prostate cancer. I think, Mr. Lopez needs his blood pressure much better controlled. He may represent a difficult pa tient considering his renal insufficiency. I think calcium channel blockers, beta blockers, clonidin e and gentle diuretics may be his mainstay of therapy. Renal consultation is pending and we will see what they recommend. Unfortunately cannot have any contrast unless it is absolutely necessary becau se of his renal function. I certainly do not plan to do any heart catheterization on him any time so on. We will see what the echocardiogram shows. I do recommend having him do an outpatient Lexiscan and if that shows some severe defect, then we will consider catheterization then. His diabetes is po sarabjit controlled and we will work on that while he is here. I will discuss the case further with Dr. Wilson and Nephrology. NB/MODL Voice ID: [id number] Report ID: [id number]
--- NOTE | 2018-11-06 21:58 | P.CNS ---
Date of Consult: 11/06/18 Reason for Consult: CKD Primary Care Provider: Dr. Roth; Nephrology-Dr. Mercedes; Oncology-Dr. Cunningham Chief Complaint: Shortness of breath History of Present Illness: A 77-year-old with PMHx of DM with neuropathy, HTN, prostae CA S/P TURP presented with SOB of 1 wk duartion SBP in 200s, CXR pleural effusion and pul edema , pt was on BiPAP pt responded well to lasix and no on NC no chest pain, papitation, nausea, vomiting or diarrhea lab with a white count of 13.4, hemoglobin 10.9, [place] [address], troponin 0.07. Sodium 142, potassium 3.9, chloride 109, bicarb 25, BUN of 35, creatinine 2.9 with a GFR 25. Glucose 160. Allergies No Known Allergies Allergy (Verified 12/12/16 22:05) Home Medications: Atorvastatin Calcium [Lipitor*] 10 mg PO DAILY 12/12/16 Metoprolol Succinate [Toprol Xl*] 50 mg PO DAILY #30 tab 12/14/16 Allopurinol [Zyloprim*] 100 mg PO DAILY #30 tab 12/25/16 Furosemide 40 mg PO DAILY 11/06/18 Hydralazine HCl 50 mg PO Q8HR 11/06/18 Lisinopril 20 mg PO DAILY 11/06/18 cloNIDine HCl [Catapres*] 0.1 mg PO TID 11/06/18 - Past Medical/Surgical History Diabetic: Yes -: Diabetes mellitus type 2 -: Hypertension -: History of prostate cancer with prostatectomy -: Chronic renal disease, multi cystic kidney disease -: CHF -: CAD -: Prostate surgery about 20 years ago Psychosocial/ Personal History: The patient is . He has 3 children. - Family History Father Medical History: Heart disease, Hypertension - Social History Smoking Status: Unknown if ever smoked Alcohol use: No CD- Drugs: No Caffeine use: Yes Place of Residence: Home Physical Examination Temp Pulse Resp BP Pulse Ox 97.7 F 60 16 199/70 H 100 11/06/18 16:00 11/06/18 21:14 11/06/18 18:00 11/06/18 21:14 11/06/18 18:00 General: Oriented x3, Mild distress HEENT: Atraumatic Neck: Supple, Without JVD or thyroid abnormality Respiratory: Crackles/rales Cardiovascular: Regular rate/rhythm, Normal S1 S2, Edema Gastrointestinal: Normal bowel sounds, Soft and benign Laboratory Data (last 24 hrs) 11/06/18 07:29: PT 13.1 H, INR 1.11 11/06/18 07:29: Sodium 142, Potassium 3.9, BUN 35 H, Creatinine 2.95 H, Glucose 160 H, Magnesium 2.2, Total Bilirubin 0.3, AST 15, ALT 15, Alkaline Phosphatase 104 11/06/18 06:40: WBC 13.4 H D, Hgb 10.9 L, Hct 34.7 L D, Plt Count 298 D - Problems (1) CKD (chronic kidney disease) Current Visit: Yes Status: Chronic (2) Leg edema Current Visit: No Status: Acute (3) Type 2 diabetes mellitus Current Visit: No Status: Chronic Qualifiers: Diabetes mellitus snf insulin use: with termite treater helper use Diabetes mellitus complication status: without complication Qualified Code(s): E11.9 - Type 2 diabetes mellitus without complications; Z79.4 - intermediate teacher (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 Sodium 142, potassium 3.9, chloride 109, bicarb 25, BUN of 35, creatinine 2.9 with a GFR 25. Glucose 160. CKD cr 2.5 in May and 2.9 in july and october Cr now at baseline CKD due to DM and HTN previous W/U LAMIN, ANCA, c3,c4 WNL have M-spike on SPEP need oncology evaluation hold lisinopril US: no hydro, echogenic kidneys Anemia SPEP : monoclonal spike fu anemia w/u HTN emergency cont lasix start on nifisipine and hydralazine CHD exacderbation cardiology evaluation cont lasix
[2018-11-06 22:49] LABS: CKMB Creatine Kinase MB 2.9 ng/mL (0.3-3.6); Troponin I 0.23 ng/mL (0.0-0.045)
[2018-11-07] MEDS: HYDRALAZINE HCL 20 MG/ML VIAL IV PRN ×2 (01:33→05:51)
[2018-11-07 05:04] LABS: Absolute Lymphocytes (CBC) 0.9 K/uL (0.7-4.9); Absolute Monocytes 0.7 K/uL (0.1-1.3); Absolute Neutrophil 7.3 K/uL (1.8-8.0); Basophils % 0.5 % (0-1.3); Eosinophils % 0.9 % (0-4.4); Hematocrit 28.9 % (39.6-49.0); Lymphocytes % 10.3 % (15.3-44.8); MPV 10.3 fL (7.6-11.3); Monocytes % 7.3 % (3.3-12.3); RBC Red Blood Cell Count 4.08 M/uL (4.33-5.43)
[2018-11-07 05:26] LABS: Magnesium 1.9 mg/dL (1.8-2.4); Potassium 3.3 mmol/L (3.5-5.1)
[2018-11-07] MEDS ORDERED: POTASSIUM 25 MEQ EFFERV TAB PO ONE ×2 (05:39→09:00)
[2018-11-07] MEDS: PANTOPRAZOLE 40MG TABLET PO SCH (05:51)
[2018-11-07 06:13] LABS: Urine Protein/Creatinine Ratio 3.16 ratio (<0.15)
--- NOTE | 2018-11-07 06:30 | EKG ---
Test Date: 2018-11-06 Test Time: 07:01:01 Receiving Associate: DEJUAN MEASUREMENT RESULTS: Intervals: Rate: 75 MD: 148 QRSD: 104 QT: 422 QTc: 471 [place]: P: 45 MD: 148 QRS: -31 T: 6 INTERPRETIVE STATEMENTS: Normal sinus rhythm Possible Left atrial enlargement Left axis deviation Nonspecific ST and T wave abnormality Prolonged QT Abnormal ECG Compared to ECG 10/21/2017 08:58:04 Left ventricular hypertrophy no longer present Electronically Signed On 11-07-18 06:30:27 CLASSROOM INSTRUCTOR by Kalyan Whitten
[2018-11-07] MEDS: INSULIN -REGULAR HUMAN 50 UNIT/0.5 ML ML SQ SCH ×4 (07:30→20:24)
--- NOTE | 2018-11-07 08:19 | P.CNS ---
Date of Consult: 11/07/18 Primary Care Provider: Dr. Roth; Nephrology-Dr. Mercedes; Oncology-Dr. Cunningham Chief Complaint: Shortness of breath History of Present Illness: Patient is 77 years of age a poor historian admitted with worsening dyspnea recent history of increased salt and fluid intake history of diastolic heart failure also complains of lower extremity edema patient does not smoke no prior history of coronary artery disease is feeling much better history of chronic renal insufficiency denies any fever chills chest pain Allergies No Known Allergies Allergy (Verified 12/12/16 22:05) Home Medications: Atorvastatin Calcium [Lipitor*] 10 mg PO DAILY 12/12/16 Metoprolol Succinate [Toprol Xl*] 50 mg PO DAILY #30 tab 12/14/16 Allopurinol [Zyloprim*] 100 mg PO DAILY #30 tab 12/25/16 Furosemide 40 mg PO DAILY 11/06/18 Hydralazine HCl 50 mg PO Q8HR 11/06/18 Lisinopril 20 mg PO DAILY 11/06/18 cloNIDine HCl [Catapres*] 0.1 mg PO TID 11/06/18 - Past Medical/Surgical History Diabetic: Yes -: Diabetes mellitus type 2 -: Hypertension -: History of prostate cancer with prostatectomy -: Chronic renal disease, multi cystic kidney disease -: CHF -: CAD -: Prostate surgery about 20 years ago Psychosocial/ Personal History: The patient is . He has 3 children. - Family History Father Medical History: Heart disease, Hypertension - Social History Smoking Status: Unknown if ever smoked Alcohol use: No CD- Drugs: No Caffeine use: Yes Place of Residence: Home Review of Systems 10-point ROS is otherwise unremarkable Physical Examination Temp Pulse Resp BP Pulse Ox 98 F 70 16 180/64 H 98 11/07/18 07:00 11/07/18 07:00 11/07/18 07:00 11/07/18 07:00 11/07/18 07:00 General: Alert, In no apparent distress, Oriented x3 HEENT: Atraumatic Neck: Supple Respiratory: Crackles/rales (Bilateral lower zones fine crackles at the bases) Cardiovascular: No edema, Normal S1 S2 Gastrointestinal: Normal bowel sounds, Soft and benign - Problems (1) Diastolic heart failure Current Visit: Yes Status: Acute Plan: Patient is 77 years of age admitted with dyspnea he appears to have pulmonary edema elevated BNP most likely diastolic dysfunction echocardiogram shows left ventricular hypertrophy in addition patient also has chronic renal insufficiency and mild microcytic anemia doing much better now seen by Nephrology continue with Lasix he is doing much better can transfer to the floor this may have been precipitated by a excessive salt water consumption patient is on diuretics at home patient's blood pressure was elevated daily room air pulse ox is never smoked Qualifiers: Heart failure chronicity: acute on chronic Qualified Code(s): I50.33 - Acute on chronic diastolic (congestive) heart failure
[2018-11-07] MEDS: NIFEDIPINE XL 30 MG TABLET PO SCH (08:40)
[2018-11-07] MEDS: DOXAZOSIN 2 MG TAB PO SCH ×2 (08:41→20:26)
[2018-11-07] MEDS: FUROSEMIDE 40 MG/4 ML VIAL IV SCH ×2 (08:41→16:59)
[2018-11-07] MEDS: cloNIDine HCl 0.1 MG TAB PO SCH ×3 (08:41→20:27)
--- NOTE | 2018-11-07 09:20 | RAD REPORT ---
EXAM DESCRIPTION: Chidi Single View11/07/2018 7:08 am CLINICAL HISTORY: Shortness of breath COMPARISON: November 06, 2018 FINDINGS: Partial resolution in diffuse bilateral pulmonary opacities. The heart remains enlarged IMPRESSION: Improvement in CHF
--- NOTE | 2018-11-07 13:03 | P.PN ---
Subjective Date of Service: 11/07/18 Primary Care Provider: Dr. Roth; Nephrology-Dr. Mercedes; Oncology-Dr. Cunningham Chief Complaint: Shortness of breath Subjective: Improving Physical Examination - Vital Signs Temperature: 98.3 F Blood Pressure: 162/63 Pulse: 68 Respirations: 19 Pulse Ox (%): 98 - Physical Exam General: Alert, In no apparent distress, Oriented x3, Cooperative HEENT: Atraumatic Neck: Supple Respiratory: Clear to auscultation bilaterally, Normal air movement Cardiovascular: Normal pulses, Regular rate/rhythm Gastrointestinal: Normal bowel sounds, Soft and benign, Non-distended Musculoskeletal: No erythema, No tenderness, No warmth Integumentary: Tenderness/swelling (Edema to the lower extremities significantly improved.) Neurological: Normal speech, Normal strength at 5/5 x4 extr, Normal tone, Normal affect - Studies Medications List Reviewed: Yes Assessment & Plan Discharge Plan: Home Plan to discharge in: 24 Hours Physician Review Additional Text: Impression: Acute on chronic respiratory failure secondary to acute on chronic diastolic CHF exacerbation with noted bilateral pleural effusion 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 Will continue with 1500 cc per day fluid restriction and Lasix. Echo shows diastolic dysfunction. Will transfer the patient to the floor. Will evaluate patient's ambulation with physical therapy. Spoke with Cardiology. No cardiac intervention is required at this time. Patient will need outpatient stress test once more stable. Patient not able to get heart catheterization due to his renal disease. This can be further addressed as an outpatient. Anticipate discharge likely tomorrow if significantly improved. 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 Renal function slightly improved. Continue with diuresis. Lisinopril has been discontinued. Continue to adjust blood pressure medication. Diabetes mellitus type 2: Will continue sliding scale. Will monitor closely. Hypertension uncontrolled: Blood pressure elevated but improved with adjustment in medication. Will increaseDoxazodin and nifedipine. Continue current medications at this time. 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 Patient is seen by oncology as an outpatient. This can be further addressed by oncology. Time Spent Managing Pts Care (In Minutes): 55
[2018-11-07 13:17] VITALS: BMI 28.7
[2018-11-07] MEDS ORDERED: INFLUENZA VACCINE (for 3y+) 0.5 ML DOSE IMVAC ONE (14:00)
[2018-11-07] MEDS: ENOXAPARIN 30 MG/0.3 ML SQ SCH (16:59)
[2018-11-08] MEDS: HYDRALAZINE HCL 20 MG/ML VIAL IV PRN ×2 (01:05→16:53)
--- NOTE | 2018-11-08 02:38 | PN ---
Date of Progress Note: 11/07/2018 Chief Complaint: Acute on chronic kidney injury, nonoliguric. Renal function has not improved significantly over last 24 hours. The patient was found to have hypokalemia, potassium was 3.3. The patient has a Moody catheter to prevent urinary retention. Review of Systems: Denies fever, chills. Physical Examination: Lungs: Clear to auscultation bilaterally. Heart: S1, S2. Abdomen: Soft, benign. Extremities: Minimal edema. Impression And Plan: 1. Mbwou-eu-uvjzbsu kidney injury. Baseline creatinine level is 1.8. During this admission, creatinine was up to 2.95. The patient has a Moody catheter to prevent urinary retention and to control urine output. 2. Hypokalemia. Potassium replacement as needed. 3. Hypertension. Avoid angiotensin receptor nelsy. Continue blood pressure medication. 4. History of diabetes mellitus, hypertension, prostate cancer, status post stent. The patient will require a Urology consultation. For diabetes, the patient will continue insulin. Monitor albumin level and proteinuria panel. SYLVIA/DEONTE Voice ID: [id number] Report ID: [id number] ELAINE
[2018-11-08] MEDS: PANTOPRAZOLE 40MG TABLET PO SCH (05:35)
[2018-11-08 06:20] LABS: Absolute Lymphocytes (CBC) 0.8 K/uL (0.7-4.9); Absolute Monocytes 0.7 K/uL (0.1-1.3); Absolute Neutrophil 6.4 K/uL (1.8-8.0); Basophils % 0.3 % (0-1.3); Eosinophils % 0.9 % (0-4.4); Hematocrit 26.9 % (39.6-49.0); Lymphocytes % 10.2 % (15.3-44.8); MPV 10.1 fL (7.6-11.3); Monocytes % 8.3 % (3.3-12.3); RBC Red Blood Cell Count 3.83 M/uL (4.33-5.43)
[2018-11-08 06:36] LABS: Magnesium 2.1 mg/dL (1.8-2.4); Potassium 3.3 mmol/L (3.5-5.1)
[2018-11-08] MEDS ORDERED: POTASSIUM 25 MEQ EFFERV TAB PO ONE (06:45)
[2018-11-08] MEDS: INSULIN -REGULAR HUMAN 50 UNIT/0.5 ML ML SQ SCH ×4 (07:30→22:26)
[2018-11-08] MEDS: DOXAZOSIN 2 MG TAB PO SCH (09:14)
[2018-11-08] MEDS: FUROSEMIDE 40 MG TABLET PO SCH ×2 (09:15→16:51)
[2018-11-08] MEDS: NIFEDIPINE XL 60 MG TABLET PO SCH (09:15)
[2018-11-08] MEDS: cloNIDine HCl 0.1 MG TAB PO SCH ×3 (09:16→22:28)
[2018-11-08] MEDS: HYDRALAZINE HCL 25 MG TABLET PO SCH ×3 (12:07→22:27)
--- NOTE | 2018-11-08 13:54 | P.PN ---
Subjective Date of Service: 11/08/18 Primary Care Provider: Dr. Roth; Nephrology-Dr. Mercedes; Oncology-Dr. Cunningham Chief Complaint: Shortness of breath Subjective: Improving Physical Examination - Vital Signs Temperature: 98.4 F Blood Pressure: 204/88 Pulse: 72 Respirations: 18 Pulse Ox (%): 97 - Physical Exam General: Alert, In no apparent distress, Oriented x3, Cooperative HEENT: Atraumatic Neck: Supple Respiratory: Clear to auscultation bilaterally, Normal air movement Cardiovascular: Normal pulses, Regular rate/rhythm Gastrointestinal: Normal bowel sounds, Soft and benign, Non-distended Musculoskeletal: No erythema, No tenderness, No warmth Integumentary: No tenderness/swelling, No erythema, No warmth, No cyanosis Neurological: Normal speech, Normal strength at 5/5 x4 extr, Normal tone, Normal affect - Studies Medications List Reviewed: Yes Assessment & Plan Discharge Plan: Home Plan to discharge in: 24 Hours Physician Review Additional Text: Impression: Acute on chronic respiratory failure secondary to acute on chronic diastolic CHF exacerbation with noted bilateral pleural effusion 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 Will continue with 1500 cc per day fluid restriction and Lasix. Will change Lasix to 40 mg 1 pill twice daily. Echo shows diastolic dysfunction. Will discontinue Moody catheter. Will monitor closely for at least 1 more day. Will try to get blood pressure better controlled. Anticipate discharge tomorrow. Case discussed at length with nephrology. Spoke with Cardiology yesterday. No cardiac intervention is required at this time. Patient will need outpatient stress test once more stable. Patient not able to get heart catheterization due to his renal disease. 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 Renal function stable. Continue with diuresis. Lasix adjusted. Lisinopril has been discontinued. Continue to adjust blood pressure medication. Continue to discuss with nephrology. Diabetes mellitus type 2: Will continue sliding scale. Will monitor closely. Hypertension uncontrolled: Blood pressure still elevated. Doxazodin was increased yesterday. Will add scheduled doses of hydralazine. Will adjust nifedipine. Once blood pressure is better controlled then will pursue discharge. 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 Patient is seen by oncology as an outpatient. This can be further addressed by oncology. Time Spent Managing Pts Care (In Minutes): 55
[2018-11-08] MEDS: ENOXAPARIN 30 MG/0.3 ML SQ SCH (16:51)
[2018-11-08] MEDS: DOXAZOSIN 4 MG TAB PO SCH (22:27)
--- NOTE | 2018-11-09 02:54 | PN ---
Date of Progress Note: 11/08/2018 Chief Complaint: Ukbiq-kx-viqpwfq kidney injury, nonoliguric. History Of Present Illness: Moody catheter was placed when the patient came to the hospital. The julianne sarah was found to have fluid overload and received IV diuretic. Diuretic doses were gradually adjus lisa. Review of Systems: Denies fever or chills. Physical Examination: Lungs: Clear to auscultation bilaterally. Heart: S1 and S2. Abdomen: Soft, benign. Extremities: Minimal edema. Impression And Plan: 1.Mqjlt-sn-cbovwth kidney injury. Previous creatinine baseline 1.8. On admission, creatinine was u p to 2.95. The patient has a Moody catheter to control urine output. The patient was found to have hypokalemia and received replacement. 2.The patient has uncontrolled hypertension, and medications were adjusted. 3.History of diabetes mellitus. Continue insulin. 4.History of jveiq-iw-ymbeqqi kidney injury. The patient presented with severe fluid overload. Adj ust diuretic and monitor fluid balance. SYLVIA/MODL Voice ID: [id number] Report ID: [id number]
[2018-11-09 05:42] LABS: Absolute Lymphocytes (CBC) 0.9 K/uL (0.7-4.9); Absolute Monocytes 0.6 K/uL (0.1-1.3); Absolute Neutrophil 6.4 K/uL (1.8-8.0); Basophils % 0.6 % (0-1.3); Eosinophils % 1.4 % (0-4.4); Hematocrit 24.8 % (39.6-49.0); Lymphocytes % 11.2 % (15.3-44.8); MPV 9.4 fL (7.6-11.3); Monocytes % 7.5 % (3.3-12.3); RBC Red Blood Cell Count 3.56 M/uL (4.33-5.43)
[2018-11-09 06:01] LABS: Magnesium 2.2 mg/dL (1.8-2.4); Potassium 3.5 mmol/L (3.5-5.1)
[2018-11-09] MEDS: PANTOPRAZOLE 40MG TABLET PO SCH (06:02)
[2018-11-09] MEDS ORDERED: POTASSIUM 25 MEQ EFFERV TAB PO ONE (06:06)
[2018-11-09] MEDS: INSULIN -REGULAR HUMAN 50 UNIT/0.5 ML ML SQ SCH ×2 (07:30→11:30)
[2018-11-09 07:32] LABS: Blood Morphology Comment NOTED (NOT SEEN); Ovalocytes 1+; Platelet Estimate ADEQ; Teardrop Cell 1+; Urine White Blood Cell Casts OK
[2018-11-09] MEDS ORDERED: DOXAZOSIN 2 MG TAB ONE (08:22)
[2018-11-09] MEDS: DOXAZOSIN 4 MG TAB PO SCH (09:00)
[2018-11-09] MEDS: HYDRALAZINE HCL 25 MG TABLET PO SCH ×2 (09:42→13:05)
[2018-11-09] MEDS: NIFEDIPINE XL 60 MG TABLET PO SCH (09:42)
[2018-11-09] MEDS: cloNIDine HCl 0.1 MG TAB PO SCH ×2 (09:44→13:05)
[2018-11-09] MEDS: FUROSEMIDE 40 MG TABLET PO SCH (09:50)
[2018-11-09 11:09] VITALS: O2SAT 97
--- NOTE | 2018-11-09 11:37 | P.DS ---
Admission Date: 11/06/18 Discharge Date: 11/09/18 Primary Care Provider: Dr. Roth; Nephrology-Dr. Mercedes; Oncology-Dr. Cunningham Disposition: ROUTINE DISCHARGE Discharge Condition: GOOD Reason for Admission: Shortness of breath Consultations: Nephrology-Dr. Esparza Pulmonary-Dr. Escalera Procedures: CXR: COMPARISON: October 2017 TECHNIQUE: AP portable chest image was obtained 0641 hours . FINDINGS: Lung volumes are low. Interstitial and alveolar opacification are present. Heart size is enlarged but not substantially different. Central vasculature is increased over the comparison. Trachea is midline. No large pleural effusions seen. No pneumothorax. No acute bony abnormality seen. No acute aortic findings suspected. IMPRESSION: Moderate CHF/volume overload pattern. Follow up CXR: COMPARISON: November 06, 2018 FINDINGS: Partial resolution in diffuse bilateral pulmonary opacities. The heart remains enlarged IMPRESSION: Improvement in CHF CT Ab/Pelvis: COMPARISON: Chest films same date, CT study October 2017 TECHNIQUE: Axial [address] imaging of the abdomen and pelvis was performed without IV contrast. No IV contrast was given because of allergy, abnormal renal function, patient refusal or physician request. No oral contrast administered. All CT scans are performed using dose optimization technique as appropriate and may include automated exposure control or mA/KV adjustment according to patient size. FINDINGS: Moderate bilateral pleural effusions are present with lung base atelectasis. These are only partially imaged. Cardiomegaly is present with minimal pericardial effusion. The liver, spleen and pancreas show no suspicious findings on non-contrast imaging. Small sub centimeter sized gallstones layer in the dependent portion of the gallbladder. No biliary tree dilatation. No acute adrenal gland finding. No hydronephrosis of the right kidney. Renal function cannot be assessed. There are multiple variably sized and variable density rounded masses of the right kidney. No gross change from the prior study. Trace amount of perinephric stranding seen. These are probably a combination of simple cysts with the hyperdensity masses representing either cysts with hemorrhage or high protein content cysts. Left kidney remains grossly abnormal. There is a 10 centimeter cyst in the upper pole of the left kidney that has enlarged from the examination 1 year earlier. Multiple variably sized low-density masses are present in the mid and lower left kidney. There is a minimal amount of stranding in the perinephric fat. The variably sized masses have the same etiology as the right kidney. An active hemorrhagic process within the left kidney is probably not present. Isodense renal masses and pyelonephritis cannot be excluded in the absence of IV contrast. Prostatectomy changes are present. Numerous surgical clips are seen. No urinary bladder acute finding. Right anterior soft tissue opacification has not changed. No dilated bowel loops or bowel wall thickening. No free air, free fluid or inflammatory stranding. No hernia, mass or bulky lymphadenopathy. No acute GI process suspected. Disc and bony degenerative changes are present. No acute process seen. IMPRESSION: No obstruction, free air or surgically emergent finding identifiable. Moderate bilateral pleural effusions and lung base atelectasis along with cardiomegaly. Lung base findings an earlier chest film findings support CHF/ volume overload. Grossly abnormal kidneys. There are multiple variably sized and a variable density round masses in the kidneys. These have the appearance of benign cysts and cysts that are either high protein content or old hemorrhage content cysts. Patient has a 10 centimeter upper pole left renal cyst that has enlarged from 1 year earlier. There is significant heterogeneity of the left kidney. A significant acute intraparenchymal hemorrhagic process is not likely. Current or active hemorrhage within 1 or more of the cysts would be possible. The absence of IV contrast limits assessment of any active bleeding process. Renal US: COMPARISON: Renal Ultrasound-Complete dated 12/21/2016; Abdomen Pelvis Wo Contrast dated 11/06/2018; Abdomen Pelvis Wo Contrast dated 10/21/2017; Stone Protocol dated 12/22/2016 FINDINGS: Both kidneys are echogenic compatible with underlying medical renal disease. Multiple cortical cysts are present bilaterally, including a large cyst emanating from the superior posterior aspect of the left kidney measuring 9.4 x 8.7 x 8.2 cm. The large cyst has slightly complex internal appearance. The right kidney measures 13.2 x 7.2 x 7.2 cm. No hydronephrosis, focal mass or perinephric fluid. The left kidney measures 13.8 x 8.8 x 7.9 cm. No hydronephrosis, focal mass or perinephric fluid. The urinary bladder is incompletely distended without gross abnormality seen. IMPRESSION: Bilateral echogenic kidneys compatible with medical renal disease. Multiple cysts are present involving both kidneys, including a large benign- appearing 9 cm superior left renal cyst. The large 9 cm cyst has a slightly complex internal appearance. ECHO: EF 60% LEFT VENTRICULAR WALL MOTION: NORMAL EJECTION FRACTION. DOPPLER/COLOR FLOW: TRACE TRICUSPID REGURGITATION. COMMENTS: LEFT VENTRICULAR HYPERTROPHY. NORMAL LEFT VENTRICULAR EJECTION FRACTION. DECREASED LEFT VENTRICULAR COMPLIANCE. DILATED LEFT ATRIUM. AORTIC SCLEROSIS. TRACE TRICUSPID REGURGITATION. 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 Shortness of breath has gotten worse over the past week. He also has noted increasing edema to the lower extremities. Blood pressure also elevated. He denies any chest pain, fever, chills or hematuria. Patient has multiple medical problems including history of prostate cancer with prostatectomy, chronic renal disease, hypertension, and diabetes. In the ER patient was evaluated. Patient required BiPAP upon admission. Patient was given 80 mg of Lasix and clonidine to help with his elevated blood pressure. This has improved. Currently lab with a white count of 13.4, hemoglobin 10.9, [place] [address], troponin 0.07. Sodium 142, potassium 3.9, chloride 109, bicarb 25, BUN of 35, creatinine 2.9 with a GFR 25. Glucose 160. Chest x-ray shows volume overload bilateral. CT abdomen shows bilateral pleural effusions. Patient with multi cystic kidney disease. I was asked to admit the patient. Patient currently stable on nasal cannula at this time. Blood pressure slightly elevated. Patient will go to ICU for closer monitoring. Hospital Course: Patient presented with increasing shortness of breath secondary to acute on chronic respiratory failure related to acute on chronic diastolic CHF. Patient was admitted and diuresis started. Patient improved with diuresis. Patient seen by pulmonology and nephrology. Medications were adjusted. X-ray showed improvement. At discharge patient without need for oxygen. Patient has tolerated treatment. At discharge patient will continue with Lasix 40 mg 1 pill twice daily. Patient will continue with a 1500 cc per day fluid restriction and low-salt diet. Recommendation to recheck lab-CBC and BMP in 1 week to monitor his progress. Recommendation is for the patient follow up with pulmonology in 1-2 weeks to follow up this hospitalization. Recommendation to recheck chest x-ray in 2-4 weeks to monitor resolution. Patient with underlying chronic kidney disease. Patient presented with acute on chronic kidney disease stage 4 with history of multi cystic kidney disease. This was noted on CT scan. Renal function remained stable on diuretic therapy. Lisinopril was discontinued. Blood pressure medication adjusted. At discharge patient will follow up with nephrology in 1 week to follow up this hospitalization. Recommendation to recheck lab-BMP in 1 week to monitor his progress. Recommendation on no further use of nonsteroidal anti- inflammatories. Future medications will need to be renally dosed. Patient will continue with allopurinol 100 mg p.o. daily. Patient was found to have bacteremia. 11/15 blood cultures positive for E coli. Patient did not appear septic during his stay. At discharge patient will continue with doxycycline 100 mg 1 pill twice daily for 14 days. Recommendation to recheck blood cultures after that time to monitor resolution. Patient with diabetes mellitus type 2. Patient will continue with diet control. Recommendation is to maintain blood sugars less 140 fasting and less than 2 after meals. Further adjustment can be done by his PCP. Patient with hypertension. Blood pressure not well controlled. Medications were adjusted in his stay. Metoprolol was discontinued. Lisinopril also discontinued due to slight worsening of his chronic kidney disease. Hydralazine and Doxazosin added. At discharge patient will continue with clonidine 0.1 mg 1 pill 3 times a day, doxazosin 4 mg 1 pill twice daily, hydralazine 50 mg 1 pill 3 times a day, nifedipine XL 60 mg daily. Recommendation is to maintain blood pressures less 150/80. Further adjustment can be done by his PCP or nephrology. Patient with anemia of chronic disease. Patient also with history of kappa monoclonal gammopathy disease. Patient seen by oncology. Patient may also have underlying iron and B12 deficiency. Recommendation is the patient follow up with oncology in 1-2 weeks to follow up this hospitalization. Patient will continue with iron daily and B12 daily. Recommendation to recheck lab-CBC in 1 week. Patient likely has GERD. Patient will continue with Protonix 40 mg 1 pill once daily. Patient has hyperlipidemia. Patient will continue with Lipitor 10 mg daily. Vital Signs/Physical Exam: Temp Pulse Resp BP Pulse Ox 98.6 F 68 18 173/74 H 96 11/09/18 08:00 11/09/18 09:50 11/09/18 08:00 11/09/18 09:50 11/09/18 08:00 General: Alert, In no apparent distress, Oriented x3, Cooperative HEENT: Atraumatic Neck: Supple Respiratory: Clear to auscultation bilaterally, Normal air movement Cardiovascular: Normal pulses, Regular rate/rhythm Gastrointestinal: Normal bowel sounds, Soft and benign, Non-distended, No tenderness, No masses, No rebound, No guarding Musculoskeletal: No erythema, No tenderness, No warmth Integumentary: No tenderness/swelling, No erythema, No warmth, No cyanosis Neurological: Normal speech, Normal strength at 5/5 x4 extr, Normal tone, Normal affect Laboratory Data at Discharge: WBC 8.1 K/uL (4.3-10.9) 11/09/18 05:10 Hgb 8.2 g/dL (13.6-17.9) L 11/09/18 05:10 Hct 24.8 % (39.6-49.0) L 11/09/18 05:10 Plt Count 202 K/uL (152-406) 11/09/18 05:10 PT 13.1 SECONDS (9.5-12.5) H 11/06/18 07:29 INR 1.11 11/06/18 07:29 Sodium 144 mmol/L (136-145) 11/09/18 05:10 Potassium 3.5 mmol/L (3.5-5.1) 11/09/18 05:10 BUN 35 mg/dL (7-18) H 11/09/18 05:10 Creatinine 3.19 mg/dL (0.55-1.3) H 11/09/18 05:10 Glucose 141 mg/dL (74-106) H 11/09/18 05:10 Magnesium 2.2 mg/dL (1.8-2.4) 11/09/18 05:10 Total Bilirubin 0.3 mg/dL (0.2-1.0) 11/06/18 07:29 AST 15 U/L (15-37) 11/06/18 07:29 ALT 15 U/L (12-78) 11/06/18 07:29 Alkaline Phosphatase 104 U/L (45-117) 11/06/18 07:29 Troponin I 0.23 ng/mL (0.0-0.045) H 11/06/18 22:11 Triglycerides 129 mg/dL (<150) 11/07/18 04:51 Cholesterol 141 mg/dL (<200) 11/07/18 04:51 HDL Cholesterol 40 mg/dL (40-60) 11/07/18 04:51 Cholesterol/HDL Ratio 3.53 11/07/18 04:51 Home Medications: Atorvastatin Calcium [Lipitor*] 10 mg PO DAILY 12/12/16 Allopurinol [Zyloprim*] 100 mg PO DAILY #30 tab 12/25/16 cloNIDine HCl [Catapres*] 0.1 mg PO TID 11/06/18 Cyanocobalamin (Vitamin B-12) [Vitamin B-12] 1,000 mcg PO DAILY #90 capsule Doxazosin [Cardura*] 4 mg PO BID #60 tab 11/09/18 Doxycycline Hyclate 100 mg PO BID #28 tablet 11/09/18 Ferrous Sulfate [Iron] 325 mg PO DAILY #90 tablet 11/09/18 Furosemide [Lasix*] 40 mg PO BIDL #60 tab 11/09/18 Hydralazine HCl 50 mg PO Q8HR #90 tablet 11/09/18 Nifedipine Xl [Procardia XL*] 60 mg PO DAILY #30 tab 11/09/18 Pantoprazole [Protonix Tab*] 40 mg PO DAILYAC #30 tab 11/09/18 New Medications: Cyanocobalamin (Vitamin B-12) [Vitamin B-12] 1,000 mcg PO DAILY #90 capsule Doxazosin [Cardura*] 4 mg PO BID #60 tab Doxycycline Hyclate 100 mg PO BID #28 tablet Ferrous Sulfate [Iron] 325 mg PO DAILY #90 tablet Furosemide [Lasix*] 40 mg PO BIDL #60 tab Hydralazine HCl 50 mg PO Q8HR #90 tablet Nifedipine Xl [Procardia XL*] 60 mg PO DAILY #30 tab Pantoprazole [Protonix Tab*] 40 mg PO DAILYAC #30 tab Patient Discharge Instructions: 1. Patient will need a follow up with PCP in 1 week to follow up this hospitalization. 2. Patient presented with increasing shortness of breath secondary to acute on chronic respiratory failure related to acute on chronic diastolic CHF. Patient was admitted and diuresis started. Patient improved with diuresis. Patient seen by pulmonology and nephrology. Medications were adjusted. X-ray showed improvement. At discharge patient without need for oxygen. Patient has tolerated treatment. At discharge patient will continue with Lasix 40 mg 1 pill twice daily. Patient will continue with a 1500 cc per day fluid restriction and low-salt diet. Recommendation to recheck lab-CBC and BMP in 1 week to monitor his progress. Recommendation is for the patient follow up with pulmonology in 1-2 weeks to follow up this hospitalization. Recommendation to recheck chest x-ray in 2-4 weeks to monitor resolution. 3. Patient with underlying chronic kidney disease. Patient presented with acute on chronic kidney disease stage 4 with history of multi cystic kidney disease. This was noted on CT scan. Renal function remained stable on diuretic therapy. Lisinopril was discontinued. Blood pressure medication adjusted. At discharge patient will follow up with nephrology in 1 week to follow up this hospitalization. Recommendation to recheck lab-BMP in 1 week to monitor his progress. Recommendation on no further use of nonsteroidal anti-inflammatories. Future medications will need to be renally dosed. Patient will continue with allopurinol 100 mg p.o. daily. 4. Patient was found to have bacteremia. / blood cultures positive for E coli. Patient did not appear septic during his stay. At discharge patient will continue with doxycycline 100 mg 1 pill twice daily for 14 days. Recommendation to recheck blood cultures after that time to monitor resolution. 5. Patient with diabetes mellitus type 2. Patient will continue with diet control. Recommendation is to maintain blood sugars less 140 fasting and less than 200 after meals. Further adjustment can be done by his PCP. 6. Patient with hypertension. Blood pressure not well controlled. Medications were adjusted in his stay. Metoprolol was discontinued. Lisinopril also discontinued due to slight worsening of his chronic kidney disease. Hydralazine and Doxazosin added. At discharge patient will continue with clonidine 0.1 mg 1 pill 3 times a day, doxazosin 4 mg 1 pill twice daily, hydralazine 50 mg 1 pill 3 times a day, nifedipine XL 60 mg daily. Recommendation is to maintain blood pressures less 150/80. Further adjustment can be done by his PCP or nephrology. 7. Patient with anemia of chronic disease. Patient also with history of kappa monoclonal gammopathy disease. Patient seen by oncology. Patient may also have underlying iron and B12 deficiency. Recommendation is the patient follow up with oncology in 1-2 weeks to follow up this hospitalization. Patient will continue with iron daily and B12 daily. Recommendation to recheck lab-CBC in 1 week. 8. Patient likely has GERD. Patient will continue with Protonix 40 mg 1 pill once daily. 9. Patient has hyperlipidemia. Patient will continue with Lipitor 10 mg daily. Diet: Renal Activity: Fall precautions Time spent managing pt's care (in minutes): 55
[2018-11-09 13:05] VITALS: BP 167/77
[2018-11-09 15:34] VITALS: TEMP 98.3
[2018-11-09] MEDS ORDERED: DOXYCYCLINE 100 MG CAP PO SCH (21:00)
--- NOTE | 2018-11-10 03:37 | PN ---
Date of Progress Note: 11/09/2018 Chief Complaint: Acute on chronic kidney injury nonoliguric. History Of Present Illness: The patient presented to the hospital because of shortness of breath. He was found to have severe fluid overload and received IV diuretics. Currently diuretic dose is titrated down to maintenance dose. The patient has Moody catheter replaced on arrival to the hospital to rule out urinary retention and to monitor urine output. The patient has underlying chronic kidney disease and was found to have worsening of the renal function with prerenal azotemia. Renal function has stabilized and is plateauing. The patient has Moody catheter removed and does not have urinary retention. Review of Systems: Denies fever, chills. Physical Examination: Lungs: Clear to auscultation bilaterally. Heart: S1, S2. Abdomen: Soft, benign, nontender. Extremities: Minimal edema. Impression And Plan: 1. Acute on chronic kidney injury. Previous creatinine baseline 1.8. On admission, creatinine level was up to 2.95 and is plateauing over last several days. The patient has nonoliguric urine output. Electrolytes are stable. Monitor urine output and fluid balance. 2. Hypertension, uncontrolled, improving. Medication adjusted. The patient is asymptomatic. 3. Diabetes mellitus. Continue insulin. 4. Acute on chronic kidney injury. The patient presented with fluid overload and diuretic dose was adjusted. Continue diuretic and low-sodium diet. SYLVIA/DEONTE Voice ID: [id number] Report ID: [id number] ELAINE
== END 2018-11-09 16:40 | disposition home or self-care (01) | DRG 291 ==
LOC: ER 06:36 → ERHOLD 10:16 → 3RD-ICU 13:30 → 2ND 11-07 10:35
PROVIDERS: ADMIT Internal Medicine; ATTEND Family Medicine
PROC: 5A09457 Assistance with Respiratory Ventilation, 24-96 Consecutive Hours, Continuous Positive Airway Pressure (ICD-10-PCS; principal; 2018-11-06)
DX: I13.0 Hypertensive heart and chronic kidney disease with heart failure and stage 1 through stage 4 chronic kidney disease, or unspecified chronic kidney disease (principal); I50.33 Acute on chronic diastolic (congestive) heart failure; J96.20 Acute and chronic respiratory failure, unspecified whether with hypoxia or hypercapnia; N18.4 Chronic kidney disease, stage 4 (severe); J90 Pleural effusion, not elsewhere classified; Q61.4 Renal dysplasia; R78.81 Bacteremia; N17.9 Acute kidney failure, unspecified; E11.22 Type 2 diabetes mellitus with diabetic chronic kidney disease; D63.1 Anemia in chronic kidney disease; D47.2 Monoclonal gammopathy; E78.5 Hyperlipidemia, unspecified; K21.9 Gastro-esophageal reflux disease without esophagitis; Z85.46 Personal history of malignant neoplasm of prostate; B96.20 Unspecified Escherichia coli [E. coli] as the cause of diseases classified elsewhere; E53.8 Deficiency of other specified B group vitamins; E61.1 Iron deficiency; Z87.891 Personal history of nicotine dependence; E11.40 Type 2 diabetes mellitus with diabetic neuropathy, unspecified; E87.6 Hypokalemia
CPT/HCPCS: 36415; 71045; 74176; 76770; 80048; 80061; 80076; 81003; 81015; 82550; 82553; 82570; 82607; 82728; 82962; 83540; 83735; 83880; 84132; 84156; 84439; 84443; 84466; 84484; 85025; 85610; 87040; 87077; 87186; 87205; 93005; 93306; 94660; 96374; 97163; 99291; 99292; G0008; J0360; J1650; J1940; Q2035

== ENCOUNTER 2018-12-23 10:37 | Emergency (ER) | payer OTHER ==
[2018-12-23 11:28] LABS: Urine Blood NEGATIVE (NEG); Urine Glucose NEGATIVE (NEG); Urine Protein 3+ (NEG); Urine Specific Gravity 1.025 (1.005-1.030); Urine pH 6.5 (5.0-7.0)
[2018-12-23] MEDS ORDERED: ENALAPRILAT 1.25 MG/ML VIAL IV ONE (11:31)
--- OUTSIDE RECORDS SUMMARY | 2018-12-23 11:40 | XMS REPORT | Clinical Summary ---
:1940 Author Organization [facility] Address [address] [place] [address] Care Team Providers Name Role Phone Asked, [...] behavior of left kidney (Primary Dx) after 12/22/2017 Social History Tobacco Use Types Packs/Day Years [...] of left kidney the results section. after 12/22/[address] Abdomen Pelvis Wo Contrast (05/16/2018 [...] cm. 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 [id number] Procedure Note Interface, Radiology Results [facility] - 05/16/2018 8:54 PM CDT EXAMINATION: CT [...] cm. 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 [id number] Performing Organization Address City/State/Zipcode Phone Number [facility] [address] [place] [address] after 12/22/2017 Insurance Payer Benefit Plan / Group Subscriber ID Type Phone Address MEDICARE MEDICARE PART A AND B xxxxxxxxxx Medicare [place], [place] Advance Directives Patient has advance care planning documents on file. For more information, please contact:Mikal Cowan[address] [place] [address]
--- OUTSIDE RECORDS SUMMARY | 2018-12-23 11:40 | XMS REPORT | Clinical Summary ---
:1940 Author Organization [facility] Address [address] [place] [address] Care Team Providers Name Role Phone Unavailable [...] tablet by mouth 2 (two) times daily. Active Problems Problem Noted Date Kidney mass [...] Not on file Results Not on fileafter 12/22/2017 Insurance Payer Benefit Plan / Group Subscriber ID Type Phone Address MEDICARE MEDICARE A B xxxxxxxxxx Medicare Advance Directives For more information, please contact:[address] [phone] Code Status Date Activated Date Inactivated Comments Full Code 10/21/2017 3:49 PM 10/26/2017 4:58 PM This code status was determined by: Patient
--- OUTSIDE RECORDS SUMMARY | 2018-12-23 11:40 | XMS REPORT ---
:1940 Author Organization [facility] Address [address] [place] [address] Care Team Providers Name Role Phone BANDAR MOORE Unavailable Unavailable Problems This patient has no known problems. Allergies, Adverse Reactions, Alerts This patient has no known allergies or adverse reactions. Medications This patient has no known medications. Results Test Description Test Time Test Comments Text Results Atomic Results Result Comments BLOOD CULTURE 2017-10-27 10:00:00 Test Item Value Reference Range Comments CULTURE (BEAKER) (test xnkk=1025) No growth in 5 days BLOOD [id number] 10:00:00 Test Item Value Reference Range Comments CULTURE (BEAKER) (test oarq=7073) No growth in 5 days POCT-GLUCOSE [id number] 12:18:00 Test Item Value Reference Range Comments POC-GLUCOSE METER (BEAKER) 181 mg/dL 70-110 TESTED AT [address] (test rqtn=5949) [place] [id number] POCT-GLUCOSE [id number] 08:05:00 Test Item Value Reference Range Comments POC-GLUCOSE METER (BEAKER) 143 mg/dL 70-110 TESTED AT [address] (test rwcc=6325) [place] [id number] BASIC METABOLIC [id number] 06:08:00 Test Item Value Reference Range Comments SODIUM (BEAKER) (test 139 meq/L 136-145 hxeq=241) POTASSIUM (BEAKER) (test 4.3 meq/L 3.5-5.1 zemr=256) CHLORIDE (BEAKER) (test 107 meq/L 98-107 ctez=554) CO2 (BEAKER) (test 23 meq/L 22-29 axzc=085) BLOOD UREA NITROGEN 40 mg/dL 7-21 (BEAKER) (test txbu=764) CREATININE (BEAKER) (test 2.56 mg/dL 0.57-1.25 ifat=311) GLUCOSE RANDOM (BEAKER) 150 mg/dL 70-105 (test uuxk=882) CALCIUM (BEAKER) (test 7.7 mg/dL 8.4-10.2 hwzs=188) EGFR (BEAKER) (test 30 mL/min/1.73 sq m ESTIMATED GFR IS NOT vzam=4605) ACCURATE CREATININE CLEARANCE IN PREDICTING GLOMERULAR FILTRATION RATE. ESTIMATED GFR IS NOT APPLICABLE FOR DIALYSIS PATIENTS. [id number] 06:03:00 Test Item Value Reference Range Comments PHOSPHORUS (BEAKER) (test aibc=266) 3.4 mg/dL 2.3-4.7 [id number] 06:03:00 Test Item Value Reference Range Comments MAGNESIUM (BEAKER) (test dmus=506) 1.9 mg/dL 1.6-2.6 CBC W/PLT COUNT & AUTO [id number] 05:38:00 Test Item Value Reference Range Comments WHITE BLOOD CELL COUNT (BEAKER) (test yfpb=021) 9.4 K/ L 3.5-10.5 RED BLOOD CELL COUNT (BEAKER) (test vnxs=098) 2.93 M/ L 4.63-6.08 HEMOGLOBIN (BEAKER) (test dkit=356) 7.4 GM/DL 13.7-17.5 HEMATOCRIT (BEAKER) (test rtrb=183) 23.0 % 40.1-51.0 MEAN CORPUSCULAR VOLUME (BEAKER) (test rigv=532) 78.5 fL 79.0-92.2 MEAN CORPUSCULAR HEMOGLOBIN (BEAKER) (test 25.3 pg 25.7-32.2 vcxd=832) MEAN CORPUSCULAR HEMOGLOBIN CONC (BEAKER) (test 32.2 GM/DL 32.3-36.5 ywsb=721) RED CELL DISTRIBUTION WIDTH (BEAKER) (test 17.5 % 11.6-14.4 sbyi=894) PLATELET COUNT (BEAKER) (test klll=590) 168 K/CU MM 150-450 MEAN PLATELET VOLUME (BEAKER) (test hwry=806) 12.2 fL 9.4-12.4 NUCLEATED RED BLOOD CELLS (BEAKER) (test 0 /100 WBC 0-0 smsq=027) NEUTROPHILS RELATIVE PERCENT (BEAKER) (test 82 % prod=755) LYMPHOCYTES RELATIVE PERCENT (BEAKER) (test 7 % pjun=638) MONOCYTES RELATIVE PERCENT (BEAKER) (test 9 % hwlk=380) EOSINOPHILS RELATIVE PERCENT (BEAKER) (test 2 % ikmd=667) BASOPHILS RELATIVE PERCENT (BEAKER) (test 0 % zvfv=263) NEUTROPHILS ABSOLUTE COUNT (BEAKER) (test 7.65 K/ L 1.78-5.38 govk=214) LYMPHOCYTES ABSOLUTE COUNT (BEAKER) (test 0.65 K/ L 1.32-3.57 uzkd=028) MONOCYTES ABSOLUTE COUNT (BEAKER) (test 0.88 K/ L 0.30-0.82 gkxa=642) EOSINOPHILS ABSOLUTE COUNT (BEAKER) (test 0.14 K/ L 0.04-0.54 rdly=139) BASOPHILS ABSOLUTE COUNT (BEAKER) (test 0.02 K/ L 0.01-0.08 xkgp=101) IMMATURE GRANULOCYTES-RELATIVE PERCENT (BEAKER) 0 % 0-1 (test dzvg=5927) CALCIUM, [id number] 05:36:00 Test Item Value Reference Range Comments CALCIUM IONIZED (BEAKER) (test nrni=325) 0.89 mmol/L 1.12-1.27 PH, BLOOD (BEAKER) (test vbjf=8508) 7.54 POCT-GLUCOSE [id number] 21:59:00 Test Item Value Reference Range Comments POC-GLUCOSE METER (BEAKER) 184 mg/dL 70-110 TESTED AT [address] (test gsnn=7248) [place] [id number] POCT-GLUCOSE [id number] 17:35:00 Test Item Value Reference Range Comments POC-GLUCOSE METER (BEAKER) 130 mg/dL 70-110 TESTED AT [address] (test mnzq=5864) [facility] [address] POCT-GLUCOSE [id number] 11:42:00 Test Item Value Reference Range Comments POC-GLUCOSE METER (BEAKER) 161 mg/dL 70-110 TESTED AT [address] (test iojq=7583) [place] [id number] POCT-GLUCOSE [id number] 10:42:00 Test Item Value Reference Range Comments POC-GLUCOSE METER (BEAKER) 172 mg/dL 70-110 TESTED AT [address] (test ecvu=7483) [place] [id number] CBC W/PLT COUNT & AUTO [id number] 09:06:00 Test Item Value Reference Range Comments WHITE BLOOD CELL COUNT (BEAKER) (test ogeq=981) 10.7 K/ L 3.5-10.5 RED BLOOD CELL COUNT (BEAKER) (test lwxr=988) 3.06 M/ L 4.63-6.08 HEMOGLOBIN (BEAKER) (test iwvt=862) 7.7 GM/DL 13.7-17.5 HEMATOCRIT (BEAKER) (test zvsa=266) 23.7 % 40.1-51.0 MEAN CORPUSCULAR VOLUME (BEAKER) (test pihl=915) 77.5 fL 79.0-92.2 MEAN CORPUSCULAR HEMOGLOBIN (BEAKER) (test 25.2 pg 25.7-32.2 yeat=467) MEAN CORPUSCULAR HEMOGLOBIN CONC (BEAKER) (test 32.5 GM/DL 32.3-36.5 iqyj=037) RED CELL DISTRIBUTION WIDTH (BEAKER) (test 17.0 % 11.6-14.4 qhwt=749) PLATELET COUNT (BEAKER) (test vthv=270) 154 K/CU MM 150-450 MEAN PLATELET VOLUME (BEAKER) (test ygqk=861) 12.5 fL 9.4-12.4 NUCLEATED RED BLOOD CELLS (BEAKER) (test 0 /100 WBC 0-0 xzlq=668) NEUTROPHILS RELATIVE PERCENT (BEAKER) (test 85 % jbal=578) LYMPHOCYTES RELATIVE PERCENT (BEAKER) (test 6 % zwad=475) MONOCYTES RELATIVE PERCENT (BEAKER) (test 8 % znec=614) EOSINOPHILS RELATIVE PERCENT (BEAKER) (test 1 % wqqj=357) BASOPHILS RELATIVE PERCENT (BEAKER) (test 0 % cqpe=304) NEUTROPHILS ABSOLUTE COUNT (BEAKER) (test 9.05 K/ L 1.78-5.38 nuff=623) LYMPHOCYTES ABSOLUTE COUNT (BEAKER) (test 0.63 K/ L 1.32-3.57 jrlp=606) MONOCYTES ABSOLUTE COUNT (BEAKER) (test 0.88 K/ L 0.30-0.82 oiee=818) EOSINOPHILS ABSOLUTE COUNT (BEAKER) (test 0.06 K/ L 0.04-0.54 ugam=421) BASOPHILS ABSOLUTE COUNT (BEAKER) (test 0.01 K/ L 0.01-0.08 mjly=170) IMMATURE GRANULOCYTES-RELATIVE PERCENT (BEAKER) 1 % 0-1 (test rmvj=5033) BASIC METABOLIC [id number] 08:20:00 Test Item Value Reference Range Comments SODIUM (BEAKER) (test 142 meq/L 136-145 jevn=584) POTASSIUM (BEAKER) (test 4.0 meq/L 3.5-5.1 zevy=716) CHLORIDE (BEAKER) (test 108 meq/L 98-107 lptv=589) CO2 (BEAKER) (test 25 meq/L 22-29 faoi=646) BLOOD UREA NITROGEN 41 mg/dL 7-21 (BEAKER) (test lsmr=766) CREATININE (BEAKER) (test 2.65 mg/dL 0.57-1.25 rqjf=707) GLUCOSE RANDOM (BEAKER) 132 mg/dL 70-105 (test omsh=973) CALCIUM (BEAKER) (test 7.8 mg/dL 8.4-10.2 cpqa=524) EGFR (BEAKER) (test 29 mL/min/1.73 sq m ESTIMATED GFR IS NOT bztc=2127) ACCURATE CREATININE CLEARANCE IN PREDICTING GLOMERULAR FILTRATION RATE. ESTIMATED GFR IS NOT APPLICABLE FOR DIALYSIS PATIENTS. [id number] 07:57:00 Test Item Value Reference Range Comments PHOSPHORUS (BEAKER) (test exma=940) 3.2 mg/dL 2.3-4.7 [id number] 07:57:00 Test Item Value Reference Range Comments MAGNESIUM (BEAKER) (test gujd=367) 1.7 mg/dL 1.6-2.6 CALCIUM, [id number] 07:40:00 Test Item Value Reference Range Comments CALCIUM IONIZED (BEAKER) (test pcgw=581) 0.95 mmol/L 1.12-1.27 PH, BLOOD (BEAKER) (test ugnq=5205) 7.53 POCT-GLUCOSE [id number] 21:39:00 Test Item Value Reference Range Comments POC-GLUCOSE METER (BEAKER) 138 mg/dL 70-110 TESTED AT [facility] [address] [facility] (test dusw=8553) [facility] [address] POCT-GLUCOSE [id number] 18:16:00 Test Item Value Reference Range Comments POC-GLUCOSE METER (BEAKER) 158 mg/dL 70-110 TESTED AT [facility] [address] [facility] (test xcao=6795) [facility] [address] POCT-GLUCOSE [id number] 12:07:00 Test Item Value Reference Range Comments POC-GLUCOSE METER (BEAKER) 153 mg/dL 70-110 TESTED AT [facility] [address] [facility] (test lfre=7807) [facility] [address] POCT-GLUCOSE [id number] 08:12:00 Test Item Value Reference Range Comments POC-GLUCOSE METER (BEAKER) 133 mg/dL 70-110 TESTED AT [place] [id number] [facility] (test hdqb=4434) [facility] [address] BASIC METABOLIC [id number] 05:25:00 Test Item Value Reference Range Comments SODIUM (BEAKER) (test 142 meq/L 136-145 vrwq=373) POTASSIUM (BEAKER) (test 4.0 meq/L 3.5-5.1 ebzi=408) CHLORIDE (BEAKER) (test 109 meq/L 98-107 krey=775) CO2 (BEAKER) (test 24 meq/L 22-29 mclz=390) BLOOD UREA NITROGEN 47 mg/dL 7-21 (BEAKER) (test ieya=747) CREATININE (BEAKER) (test 3.13 mg/dL 0.57-1.25 gszg=243) GLUCOSE RANDOM (BEAKER) 130 mg/dL 70-105 (test rtye=068) CALCIUM (BEAKER) (test 7.6 mg/dL 8.4-10.2 gqwr=450) EGFR (BEAKER) (test 24 mL/min/1.73 sq m ESTIMATED GFR IS NOT rwuu=3494) ACCURATE CREATININE CLEARANCE IN PREDICTING GLOMERULAR FILTRATION RATE. ESTIMATED GFR IS NOT APPLICABLE FOR DIALYSIS PATIENTS. CALCIUM, [id number] 05:23:00 Test Item Value Reference Range Comments CALCIUM IONIZED (BEAKER) (test rjvr=966) 0.88 mmol/L 1.12-1.27 PH, BLOOD (BEAKER) (test hcuj=6166) 7.50 [id number] 05:22:00 Test Item Value Reference Range Comments PHOSPHORUS (BEAKER) (test wvfz=279) 3.7 mg/dL 2.3-4.7 [id number] 05:22:00 Test Item Value Reference Range Comments MAGNESIUM (BEAKER) (test taia=446) 1.8 mg/dL 1.6-2.6 CBC W/PLT COUNT & AUTO [id number] 05:10:00 Test Item Value Reference Range Comments WHITE BLOOD CELL COUNT (BEAKER) (test cnmn=996) 12.5 K/ L 3.5-10.5 RED BLOOD CELL COUNT (BEAKER) (test fzmv=862) 2.83 M/ L 4.63-6.08 HEMOGLOBIN (BEAKER) (test fcyv=696) 7.2 GM/DL 13.7-17.5 HEMATOCRIT (BEAKER) (test csbl=839) 22.2 % 40.1-51.0 MEAN CORPUSCULAR VOLUME (BEAKER) (test zxgd=616) 78.4 fL 79.0-92.2 MEAN CORPUSCULAR HEMOGLOBIN (BEAKER) (test 25.4 pg 25.7-32.2 xmpb=410) MEAN CORPUSCULAR HEMOGLOBIN CONC (BEAKER) (test 32.4 GM/DL 32.3-36.5 qsru=519) RED CELL DISTRIBUTION WIDTH (BEAKER) (test 16.4 % 11.6-14.4 vpex=717) PLATELET COUNT (BEAKER) (test acer=213) 128 K/CU MM 150-450 MEAN PLATELET VOLUME (BEAKER) (test qnua=187) 12.1 fL 9.4-12.4 NUCLEATED RED BLOOD CELLS (BEAKER) (test 0 /100 WBC 0-0 ohtu=585) NEUTROPHILS RELATIVE PERCENT (BEAKER) (test 86 % fwrv=841) LYMPHOCYTES RELATIVE PERCENT (BEAKER) (test 5 % jrta=913) MONOCYTES RELATIVE PERCENT (BEAKER) (test 8 % opcb=453) EOSINOPHILS RELATIVE PERCENT (BEAKER) (test 0 % cwgt=294) BASOPHILS RELATIVE PERCENT (BEAKER) (test 0 % dtun=488) NEUTROPHILS ABSOLUTE COUNT (BEAKER) (test 10.79 K/ L 1.78-5.38 vcwt=928) LYMPHOCYTES ABSOLUTE COUNT (BEAKER) (test 0.61 K/ L 1.32-3.57 fqgw=689) MONOCYTES ABSOLUTE COUNT (BEAKER) (test 0.96 K/ L 0.30-0.82 dxon=269) EOSINOPHILS ABSOLUTE COUNT (BEAKER) (test 0.05 K/ L 0.04-0.54 ijix=673) BASOPHILS ABSOLUTE COUNT (BEAKER) (test 0.02 K/ L 0.01-0.08 ghdy=001) IMMATURE GRANULOCYTES-RELATIVE PERCENT (BEAKER) 0 % 0-1 (test sdol=2106) HEMOGLOBIN AND [id number] 00:40:00 Test Item Value Reference Range Comments HEMOGLOBIN (BEAKER) (test txlo=239) 7.1 GM/DL 13.7-17.5 HEMATOCRIT (BEAKER) (test abiw=701) 21.6 % 40.1-51.0 Send specimen after 2 units PRBC transfusion is completedPOCT-GLUCOSE [id number] 21:20:00 Test Item Value Reference Range Comments POC-GLUCOSE METER (BEAKER) 114 mg/dL 70-110 TESTED AT [address] (test vivp=1898) [place] [address] POCT-GLUCOSE [id number] 17:14:00 Test Item Value Reference Range Comments POC-GLUCOSE METER (BEAKER) 92 mg/dL 70-110 TESTED AT [address] (test ksxr=2841) [place] [address] ANG, EMBOLIZATION, EXTENSIVE - [id number] 15:08:00Reason for exam:-> left kidney intraparenchymal hemorrhageReason for exam:->please review filmsand consider embolization, please call Dr Duke with urology to discuss- [phone] REPORT Renal arteriogram: Pertinent clinical information: Left [...] guide wire was advanced centrally. A 5 Mexican catheter was advanced with its distal tip [...] Saige Ashford Verified Date/Time: 201615:08:40 Reading Location: [place] [address] Angio Body Reading Room URINE [id number] 10:50:00 Test Item Value Reference Range Comments CULTURE (BEAKER) (test ymms=5317) No growth PT/[id number] 10:38:00 Test Item Value Reference Range Comments PROTIME (BEAKER) (test hlzg=564) 17.5 seconds 11.7-14.7 INR (BEAKER) (test sqyh=470) 1.4 <=5.9 PARTIAL THROMBOPLASTIN TIME (BEAKER) (test 34.3 seconds 22.5-36.0 olap=360) RECOMMENDED COUMADIN/WARFARIN INR THERAPY RANGESSTANDARD DOSE: 2.0 - 3.0 Includes: PROPHYLAXIS forvenous thrombosis, systemic embolization; TREATMENT for venous thrombosis and/or pulmonary embolus.HIGH RISK: Target INR is 2.5-3.5 for patients with mechanical heart valves.CBC W/PLT COUNT & AUTO [id number] 08:42:00 Test Item Value Reference Range Comments WHITE BLOOD CELL COUNT 14.4 K/ L 3.5-10.5 (BEAKER) (test mjcn=426) RED BLOOD CELL COUNT (BEAKER) 2.45 M/ L 4.63-6.08 (test rqrd=052) HEMOGLOBIN (BEAKER) (test 5.9 GM/DL 13.7-17.5 obqs=980) HEMATOCRIT (BEAKER) (test 18.6 % 40.1-51.0 dusy=609) MEAN CORPUSCULAR VOLUME 75.9 fL 79.0-92.2 (BEAKER) (test noff=399) MEAN CORPUSCULAR HEMOGLOBIN 24.1 pg 25.7-32.2 (BEAKER) (test fxmp=288) MEAN CORPUSCULAR HEMOGLOBIN 31.7 GM/DL 32.3-36.5 CONC (BEAKER) (test qinf=172) RED CELL DISTRIBUTION WIDTH 15.8 % 11.6-14.4 (BEAKER) (test qklf=994) PLATELET COUNT (BEAKER) (test 112 K/CU MM 150-450 tskw=098) MEAN PLATELET VOLUME (BEAKER) fL 9.4-12.4 Unable to report due to (test phaz=366) abnormal Platelet population distribution. NUCLEATED RED BLOOD CELLS 0 /100 WBC 0-0 (BEAKER) (test smtc=943) NEUTROPHILS RELATIVE PERCENT 85 % (BEAKER) (test okzg=137) LYMPHOCYTES RELATIVE PERCENT 5 % (BEAKER) (test wjuy=036) MONOCYTES RELATIVE PERCENT 9 % (BEAKER) (test uadk=207) EOSINOPHILS RELATIVE PERCENT 1 % (BEAKER) (test zasu=327) BASOPHILS RELATIVE PERCENT 0 % (BEAKER) (test xlbi=669) NEUTROPHILS ABSOLUTE COUNT 12.25 K/ L 1.78-5.38 (BEAKER) (test xazn=136) LYMPHOCYTES ABSOLUTE COUNT 0.76 K/ L 1.32-3.57 (BEAKER) (test tysy=417) MONOCYTES ABSOLUTE COUNT 1.25 K/ L 0.30-0.82 (BEAKER) (test atkg=022) EOSINOPHILS ABSOLUTE COUNT 0.08 K/ L 0.04-0.54 (BEAKER) (test inrn=219) BASOPHILS ABSOLUTE COUNT 0.02 K/ L 0.01-0.08 (BEAKER) (test qlgq=249) IMMATURE GRANULOCYTES-RELATIVE 1 % 0-1 PERCENT (BEAKER) (test lebl=9258) BASIC METABOLIC [id number] 07:46:00 Test Item Value Reference Range Comments SODIUM (BEAKER) (test 140 meq/L 136-145 ekco=944) POTASSIUM (BEAKER) (test 3.9 meq/L 3.5-5.1 tvil=123) CHLORIDE (BEAKER) (test 107 meq/L 98-107 xviv=498) CO2 (BEAKER) (test 24 meq/L 22-29 wrsv=189) BLOOD UREA NITROGEN 50 mg/dL 7-21 (BEAKER) (test mncv=178) CREATININE (BEAKER) (test 3.68 mg/dL 0.57-1.25 sbwu=581) GLUCOSE RANDOM (BEAKER) 110 mg/dL 70-105 (test fbbo=949) CALCIUM (BEAKER) (test 7.2 mg/dL 8.4-10.2 klcp=617) EGFR (BEAKER) (test 20 mL/min/1.73 sq m ESTIMATED GFR IS NOT wtnf=0780) ACCURATE CREATININE CLEARANCE IN PREDICTING GLOMERULAR FILTRATION RATE. ESTIMATED GFR IS NOT APPLICABLE FOR DIALYSIS PATIENTS. [id number] 07:41:00 Test Item Value Reference Range Comments PHOSPHORUS (BEAKER) (test igdu=321) 3.5 mg/dL 2.3-4.7 [id number] 07:41:00 Test Item Value Reference Range Comments MAGNESIUM (BEAKER) (test sjcn=269) 1.8 mg/dL 1.6-2.6 POCT-GLUCOSE [id number] 07:13:00 Test Item Value Reference Range Comments POC-GLUCOSE METER (BEAKER) 124 mg/dL 70-110 TESTED AT [address] (test eixv=2019) [facility] [address] CT, [id number] 00:22:00FINAL REPORT CT, ABDOMEN \T \ PELVIS, [...] MDReport Verified Date/Time: 10/23/2017 00:22:43 Reading Location: [address] Body Reading Room CREATINE KINASE (CK)[id number] 21 :31:00 Test Item Value Reference Range Comments CREATINE KINASE TOTAL (BEAKER) (test toyw=739) 167 U/L 29-200 LACTIC ACID, VENOUS, WHOLE [id number] 21:24:00 Test Item Value Reference Range Comments LACTATE BLOOD VENOUS (2) (BEAKER) (test 0.8 mmol/L 0.5-2.2 hwal=1124) Effective 03/15/2016: Units/Reference Range ChangeNew: 0.5-2.2 mmol/L Previous: 5 -20 mg/dLPOCT-GLUCOSE [id number] 21:23:00 Test Item Value Reference Range Comments POC-GLUCOSE METER (BEAKER) 130 mg/dL 70-110 TESTED AT [facility] [address] (test zhag=9959) [facility] [address] SODIUM, RANDOM [id number] 20:29:00 Test Item Value Reference Range Comments SODIUM URINE (BEAKER) (test xqut=158) 24 meq/L Reference Range: No NormalsCREATININE, RANDOM [id number] 20:27:00 Test Item Value Reference Range Comments CREATININE URINE (BEAKER) (test mney=681) 155.1 mg/dL Reference Range: No NormalsPROTEIN, RANDOM [id number] 20:27:00 Test Item Value Reference Range Comments PROTEIN, URINE (BEAKER) (test tngc=4556) 60 mg/dL 0-14 URINALYSIS W/ [id number] 20:27:00 Test Item Value Reference Range Comments COLOR (BEAKER) (test rsei=481) Yellow CLARITY (BEAKER) (test pxhz=342) Hazy SPECIFIC GRAVITY UA (BEAKER) (test fgdu=861) 1.010 1.001-1.035 PH UA (BEAKER) (test ysvg=086) 5.0 5.0-8.0 PROTEIN UA (BEAKER) (test rocl=841) 70 mg/dL Negative GLUCOSE UA (BEAKER) (test levg=528) Negative Negative KETONES UA (BEAKER) (test devw=979) Negative Negative BILIRUBIN UA (BEAKER) (test cntb=440) Negative Negative BLOOD UA (BEAKER) (test bnqs=606) Moderate Negative NITRITE UA (BEAKER) (test kkxg=882) Negative Negative LEUKOCYTE ESTERASE UA (BEAKER) (test isol=241) Large Negative UROBILINOGEN UA (BEAKER) (test ipxb=866) 0.2 mg/dL 0.2-1.0 RBC UA (BEAKER) (test qndb=584) 85 /HPF WBC UA (BEAKER) (test slxc=302) 0 /HPF BACTERIA (BEAKER) (test aixf=379) Many MUCUS (BEAKER) (test ssio=4450) Few SQUAMOUS EPITHELIAL (BEAKER) (test cath=394) 5 /HPF CASTS (BEAKER) (test xrxr=3897) 5 /LPF CRYSTALS, URINE (BEAKER) (test umki=0106) Moderate YEAST (BEAKER) (test qnvz=4277) Few SOURCE(BEAKER) (test kdpi=3345) Urine, Moody POCT-GLUCOSE [id number] 17:05:00 Test Item Value Reference Range Comments POC-GLUCOSE METER (BEAKER) 113 mg/dL 70-110 TESTED AT [address] (test czsq=8470) [facility] [address] [id number] 16:24:00 Test Item Value Reference Range Comments PROSTATE SPECIFIC ANTIGEN (BEAKER) (test asdo=154) 0.0 ng/mL 0.0-4.0 POCT-GLUCOSE [id number] 11:21:00 Test Item Value Reference Range Comments POC-GLUCOSE METER (BEAKER) 146 mg/dL 70-110 TESTED AT [address] (test ccsx=7841) [place] [id number] HEMOGLOBIN AND [id number] 11:19:00 Test Item Value Reference Range Comments HEMOGLOBIN (BEAKER) (test lyyq=444) 6.4 GM/DL 13.7-17.5 HEMATOCRIT (BEAKER) (test zkpk=981) 20.0 % 40.1-51.0 U/S, RENAL, [id number] 09:08:00Reason for exam:->left intraparenchymal hematoma on CTFINAL REPORT Renal ultrasound dated 10/22/2017 Comment: Real-time transabdominal renal ultrasound was performed.Right kidney measures 13.9 x 7.0 x 5.7 cm. Left kidney .3 x 9.7 x 9.2 cm. Right renal [...] MDReport Verified Date/Time: 10/22/2017 09:08:47 Reading Location: [facility] [id number] Ultrasound Reading Room POCT-GLUCOSE [id number] 08:05:00 Test Item Value Reference Range Comments POC-GLUCOSE METER (BEAKER) 154 mg/dL 70-110 TESTED AT [facility] [address] [facility] (test cnmt=0561) [facility] [address] URINALYSIS W/ [id number] 07:56:00 Test Item Value Reference Range Comments COLOR (BEAKER) (test wcal=052) Yellow CLARITY (BEAKER) (test opvl=181) Hazy SPECIFIC GRAVITY UA (BEAKER) (test juzm=706) 1.013 1.001-1.035 PH UA (BEAKER) (test hcmf=743) 5.0 5.0-8.0 PROTEIN UA (BEAKER) (test kqba=000) 100 mg/dL Negative GLUCOSE UA (BEAKER) (test aqcq=013) Negative Negative KETONES UA (BEAKER) (test porp=621) Negative Negative BILIRUBIN UA (BEAKER) (test odni=412) Negative Negative BLOOD UA (BEAKER) (test ghfd=702) Moderate Negative NITRITE UA (BEAKER) (test foui=624) Negative Negative LEUKOCYTE ESTERASE UA (BEAKER) (test khnx=546) Negative Negative UROBILINOGEN UA (BEAKER) (test bmpa=903) 0.2 mg/dL 0.2-1.0 RBC UA (BEAKER) (test aeqx=408) 13 /HPF WBC UA (BEAKER) (test khml=922) 1 /HPF BACTERIA (BEAKER) (test axmz=234) Rare MUCUS (BEAKER) (test xkcc=7783) Rare SQUAMOUS EPITHELIAL (BEAKER) (test twpc=376) 1 /HPF HYALINE CASTS (BEAKER) (test mlos=358) 3 /LPF AMORPHOUS CRYSTALS (BEAKER) (test divv=5462) Rare SOURCE(BEAKER) (test ftgb=8517) Urine, Voided COMPREHENSIVE METABOLIC [id number] 07:45:00 Test Item Value Reference Range Comments TOTAL PROTEIN (BEAKER) 6.2 gm/dL 6.0-8.3 (test usco=121) ALBUMIN (BEAKER) (test 3.4 g/dL 3.5-5.0 jfen=4916) ALKALINE PHOSPHATASE 53 U/L 40-150 (BEAKER) (test liph=465) BILIRUBIN TOTAL (BEAKER) 0.5 mg/dL 0.2-1.2 (test tsax=286) SODIUM (BEAKER) (test 141 meq/L 136-145 mhwf=356) POTASSIUM (BEAKER) (test 4.2 meq/L 3.5-5.1 ctfu=007) CHLORIDE (BEAKER) (test 105 meq/L 98-107 fxad=754) CO2 (BEAKER) (test 21 meq/L 22-29 dizd=127) BLOOD UREA NITROGEN 44 mg/dL 7-21 (BEAKER) (test vjph=530) CREATININE (BEAKER) (test 4.16 mg/dL 0.57-1.25 rbhl=079) GLUCOSE RANDOM (BEAKER) 121 mg/dL 70-105 (test qzlm=544) CALCIUM (BEAKER) (test 7.6 mg/dL 8.4-10.2 agbr=238) AST (SGOT) (BEAKER) (test 12 U/L 5-34 lzkz=417) ALT (SGPT) (BEAKER) (test 7 U/L 6-55 wbfe=389) EGFR (BEAKER) (test 17 mL/min/1.73 sq m ESTIMATED GFR IS NOT shaf=5378) ACCURATE CREATININE CLEARANCE IN PREDICTING GLOMERULAR FILTRATION RATE. ESTIMATED GFR IS NOT APPLICABLE FOR DIALYSIS PATIENTS. CBC W/PLT COUNT & AUTO [id number] 05:44:00 Test Item Value Reference Range Comments WHITE BLOOD CELL COUNT (BEAKER) (test mnjm=027) 17.6 K/ L 3.5-10.5 RED BLOOD CELL COUNT (BEAKER) (test cdnl=939) 3.06 M/ L 4.63-6.08 HEMOGLOBIN (BEAKER) (test gric=427) 7.2 GM/DL 13.7-17.5 HEMATOCRIT (BEAKER) (test xasj=565) 22.7 % 40.1-51.0 MEAN CORPUSCULAR VOLUME (BEAKER) (test cjyd=590) 74.2 fL 79.0-92.2 MEAN CORPUSCULAR HEMOGLOBIN (BEAKER) (test 23.5 pg 25.7-32.2 drfp=896) MEAN CORPUSCULAR HEMOGLOBIN CONC (BEAKER) (test 31.7 GM/DL 32.3-36.5 okfq=777) RED CELL DISTRIBUTION WIDTH (BEAKER) (test 15.2 % 11.6-14.4 pawj=009) PLATELET COUNT (BEAKER) (test mzbd=780) 199 K/CU MM 150-450 MEAN PLATELET VOLUME (BEAKER) (test pjyh=365) 13.8 fL 9.4-12.4 NUCLEATED RED BLOOD CELLS (BEAKER) (test 0 /100 WBC 0-0 ywlg=556) NEUTROPHILS RELATIVE PERCENT (BEAKER) (test 88 % gtjv=527) LYMPHOCYTES RELATIVE PERCENT (BEAKER) (test 5 % fhnz=096) MONOCYTES RELATIVE PERCENT (BEAKER) (test 6 % wtlo=858) EOSINOPHILS RELATIVE PERCENT (BEAKER) (test 0 % drtg=884) BASOPHILS RELATIVE PERCENT (BEAKER) (test 0 % yvsl=348) NEUTROPHILS ABSOLUTE COUNT (BEAKER) (test 15.47 K/ L 1.78-5.38 iugf=665) LYMPHOCYTES ABSOLUTE COUNT (BEAKER) (test 0.88 K/ L 1.32-3.57 wjsq=936) MONOCYTES ABSOLUTE COUNT (BEAKER) (test 1.12 K/ L 0.30-0.82 hggg=656) EOSINOPHILS ABSOLUTE COUNT (BEAKER) (test 0.00 K/ L 0.04-0.54 lgeo=386) BASOPHILS ABSOLUTE COUNT (BEAKER) (test 0.02 K/ L 0.01-0.08 ikwj=424) IMMATURE GRANULOCYTES-RELATIVE PERCENT (BEAKER) 1 % 0-1 (test dnle=7562) POCT-GLUCOSE [id number] 22:09:00 Test Item Value Reference Range Comments POC-GLUCOSE METER (BEAKER) 165 mg/dL 70-110 TESTED AT [facility] [address] [facility] (test adkw=5681) [place] [address] [id number] 16:51:00 Test Item Value Reference Range Comments PROTIME (BEAKER) (test cqlw=286) 17.9 seconds 11.7-14.7 INR (BEAKER) (test jjeh=668) 1.5 <=5.9 PARTIAL THROMBOPLASTIN TIME (BEAKER) (test 23.0 seconds 22.5-36.0 fzbn=798) RECOMMENDED COUMADIN/WARFARIN INR THERAPY RANGESSTANDARD DOSE: 2.0 - 3.0 Includes: PROPHYLAXIS forvenous thrombosis, systemic embolization; TREATMENT for venous thrombosis and/or pulmonary embolus.HIGH RISK: Target INR is 2.5-3.5 for patients with mechanical heart valves.POCT-GLUCOSE [id number] 16:36:00 Test Item Value Reference Range Comments POC-GLUCOSE METER (BEAKER) 222 mg/dL 70-110 TESTED AT [facility] [address] (test qkpi=3368) [facility] [address]
--- NOTE | 2018-12-23 12:17 | EDPHYS ---
Physician Documentation [facility] Name: Steve Lopez Jr Age: 78 yrs Sex: Male : 1940 Arrival Date: 12/23/2018 Time: 10:39 Bed 19 Private MD: Sebastian Roth T ED Physician Antonino Bishop HPI: 12/23 14:05 This 78 yrs old Black Male presents to ER via Wheelchair with complaints of High Blood gs Pressure. 14:05 The patient has elevated blood pressure and discovered this at hospital. Onset: The gs symptoms/episode began/occurred today. Modifying factors: The symptoms are alleviated by prescription meds. Associated signs and symptoms: Pertinent negatives: chest pain, dizziness, headache, lightheadedness, visual changes, weakness. Severity of symptoms: At its worst the blood pressure was severe, in the emergency department the blood pressure is unchanged. The patient has experienced similar episodes in the past, several times. Historical: - Allergies: 10:44 No Known Allergies; hj - Home Meds: 10:44 acarbose 50 mg Oral tab 1 tab 3 times per day [Active]; allopurinol 100 mg Oral tab hj every morning [Active]; atorvastatin 10 mg Oral tab 1 tab once daily [Active]; clonidine HCl 0.1 mg Oral tab 3 times per day [Active]; furosemide 40 mg Oral tab 1 tab once daily [Active]; lisinopril 20 mg Oral tab every morning [Active]; metolazone 2.5 mg Oral tab once a week on [Active]; metoprolol ER succinate 50mg every morning 50 mg every morning [Active]; minoxidil 2.5 mg Oral tab once a week on [Active]; - PMHx: 10:44 Diabetes - IDDM; Hypertension; Prostate Cancer; hj - PSHx: 10:44 Unable to obtain; hj - Immunization history:: Adult Immunizations up to date. - Social history:: Smoking status: Patient/guardian denies using tobacco, Patient/guardian denies using alcohol. - Ebola Screening: : Patient negative for fever greater than or equal to 101.5 degrees Fahrenheit, and additional compatible Ebola Virus Disease symptoms Patient denies exposure to infectious person Patient denies travel to an Ebola-affected area in the 21 days before illness onset. ROS: 14:05 All other systems are negative. gs Exam: 14:05 Head/Face: Normocephalic, atraumatic. Eyes: Pupils equal round and reactive to light, gs extra-ocular motions intact. Lids and lashes normal. Conjunctiva and sclera are non-icteric and not injected. Cornea within normal limits. Periorbital areas with no swelling, redness, or edema. ENT: Nares patent. No nasal discharge, no septal abnormalities noted. Tympanic membranes are normal and external auditory canals are clear. Oropharynx with no redness, swelling, or masses, exudates, or evidence of obstruction, uvula midline. Mucous membranes moist. Neck: Trachea midline, no thyromegaly or masses palpated, and no cervical lymphadenopathy. Supple, full range of motion without nuchal rigidity, or vertebral point tenderness. No Meningismus. Chest/axilla: Normal chest wall appearance and motion. Nontender with no deformity. No lesions are appreciated. 14:05 Respiratory: Lungs have equal breath sounds bilaterally, clear to auscultation and percussion. No rales, rhonchi or wheezes noted. No increased work of breathing, no retractions or nasal flaring. Abdomen/GI: Soft, non-tender, with normal bowel sounds. No distension or tympany. No guarding or rebound. No evidence of tenderness throughout. Back: No spinal tenderness. No costovertebral tenderness. Full range of motion. Skin: Warm, dry with normal turgor. Normal color with no rashes, no lesions, and no evidence of cellulitis. MS/ Extremity: Pulses equal, no cyanosis. Neurovascular intact. Full, normal range of motion. Neuro: Awake and alert, GCS 15, oriented to person, place, time, and situation. Cranial nerves II-XII grossly intact. Motor strength 5/5 in all extremities. Sensory grossly intact. Cerebellar exam normal. Normal gait. 14:05 Constitutional: The patient appears alert, awake. 14:05 Cardiovascular: Rate: bradycardic, Rhythm: regular, Edema: 2+ edema to level of left midcalf and right midcalf. Vital Signs: 10:46 BP 256 / 74; Pulse 63; Resp 18; Temp 97.8(TE); Pulse Ox 100% on R/A; Weight 99.79 kg; hj Height 5 ft. 11 in. (180.34 cm); Pain 0/10; 12:08 BP 176 / 62; Pulse 56; Resp 18; Pulse Ox 100% on R/A; hj 12:29 BP 188 / 70; Pulse 65; Resp 18; Pulse Ox 100% on R/A; 10:46 Body Mass Index 30.68 (99.79 kg, 180.34 cm) MDM: 11:17 Patient medically screened. 14:05 Differential diagnosis: hypertensive crisis, Malignant HTN. Data reviewed: vital signs, nurses notes. Response to treatment: the patient's symptoms have markedly improved after treatment. Physician consultation: Caitlyn Darling MD regarding patient's condition. 12/23 11:05 Order name: Urine Dipstick--Ancillary (enter results); Complete Time: 11:39 12/23 11:16 Order name: IV Saline Lock; Complete Time: 11:44 Administered Medications: 11:16 Drug: Enalaprilat 1.25 mg Route: IV; Rate: calculated rate; Site: right antecubital; 12:30 Follow up: IV Status: Completed infusion 12:30 Follow up: Response: Blood pressure is lowered Disposition: 12/23/18 12:17 Discharged to Home. Impression: Hypertensive heart and chronic kidney disease. - Condition is Stable. - Discharge Instructions: Hypertension. - Medication Reconciliation Form, Thank You Letter, Antibiotic Education, Prescription Opioid Use form. - Follow up: Private Physician; When: 2 - 3 days; Reason: Re-evaluation by your physician. Signatures: Dispatcher [employer] [facility] Robbie Rosales RN RN Antonino Bishop MD MD Kristian Genao RN RN bp Corrections: (The following items were deleted from the chart) 12:38 12:17 12/23/2018 12:17 Discharged to Home. Impression: Hypertensive heart and chronic bp kidney disease. Condition is Stable. Forms are Medication Reconciliation Form, Thank You Letter, Antibiotic Education, Prescription Opioid Use. Follow up: Private Physician; When: 2 - 3 days; Reason: Re-evaluation by your physician.
--- NOTE | 2018-12-23 12:17 | ER ---
Nurse's Notes [facility] Name: Steve Lopez Jr Age: 78 yrs Sex: Male : 1940 Arrival Date: 12/23/2018 Time: 10:39 Bed 19 Private MD: Sebastian Roth T Diagnosis: Hypertensive heart and chronic kidney disease Presentation: 12/23 10:41 Presenting complaint: Patient states: coming from [facility] for iron replacement, BP is high, BP at 1012- 210/68; at 1015- 227/66; manual- 250/70; contacted Dr. Mercedes- at 1020; complaints of bilateral leg swelling;. Transition of care: Same Day Surgery. Onset of symptoms was December 23, 2018. Risk Assessment: Do you want to hurt yourself or someone else? Patient reports no desire to harm self or others. Initial Sepsis Screen: Does the patient meet any 2 criteria? No. Patient's initial sepsis screen is negative. Does the patient have a suspected source of infection? No. Patient's initial sepsis screen is negative. Care prior to arrival: None. 10:41 Method Of Arrival: Wheelchair 10:41 Acuity: NATHANIEL 3 hj Triage Assessment: 10:45 General: Appears in no apparent distress. uncomfortable, Behavior is calm, cooperative, hj appropriate for age. Pain: Denies pain. Historical: - Allergies: 10:44 No Known Allergies; hj - Home Meds: 10:44 acarbose 50 mg Oral tab 1 tab 3 times per day [Active]; allopurinol 100 mg Oral tab hj every morning [Active]; atorvastatin 10 mg Oral tab 1 tab once daily [Active]; clonidine HCl 0.1 mg Oral tab 3 times per day [Active]; furosemide 40 mg Oral tab 1 tab once daily [Active]; lisinopril 20 mg Oral tab every morning [Active]; metolazone 2.5 mg Oral tab once a week on [Active]; metoprolol ER succinate 50mg every morning 50 mg every morning [Active]; minoxidil 2.5 mg Oral tab once a week on [Active]; - PMHx: 10:44 Diabetes - IDDM; Hypertension; Prostate Cancer; hj - PSHx: 10:44 Unable to obtain; hj - Immunization history:: Adult Immunizations up to date. - Social history:: Smoking status: Patient/guardian denies using tobacco, Patient/guardian denies using alcohol. - Ebola Screening: : Patient negative for fever greater than or equal to 101.5 degrees Fahrenheit, and additional compatible Ebola Virus Disease symptoms Patient denies exposure to infectious person Patient denies travel to an Ebola-affected area in the 21 days before illness onset. Screenin:44 Abuse screen: Denies threats or abuse. Denies injuries from another. Nutritional hj screening: No deficits noted. Tuberculosis screening: No symptoms or risk factors identified. Fall Risk None identified. Assessment: 10:45 General: Appears in no apparent distress. uncomfortable, Behavior is calm, cooperative, hj appropriate for age. Pain: Denies pain. Neuro: Level of Consciousness is awake, alert, obeys commands, Oriented to person, place, time, situation, Appropriate for age. Cardiovascular: Capillary refill < 3 seconds Patient's skin is warm and dry. Respiratory: No deficits noted. GI: No signs and/or symptoms were reported involving the gastrointestinal system. : Reports renal issues. EENT: No signs and/or symptoms were reported regarding the EENT system. Derm: No signs and/or symptoms reported regarding the dermatologic system. Musculoskeletal: Reports bilateral leg swelling;. 12:37 Reassessment: PT D/C HOME AMBULATORY WITH FAMILY, DX WITH HYPERTENSIVE HEART AND bp CHRONIC KIDNEY DISEASE. Vital Signs: 10:46 BP 256 / 74; Pulse 63; Resp 18; Temp 97.8(TE); Pulse Ox 100% on R/A; Weight 99.79 kg; hj Height 5 ft. 11 in. (180.34 cm); Pain 0/10; 12:08 BP 176 / 62; Pulse 56; Resp 18; Pulse Ox 100% on R/A; hj 12:29 BP 188 / 70; Pulse 65; Resp 18; Pulse Ox 100% on R/A; hj 10:46 Body Mass Index 30.68 (99.79 kg, 180.34 cm) ED Course: 10:39 Patient arrived in ED. rg4 10:39 Sebastian Roth MD is Private Physician. rg4 10:41 Robbie Rosales RN is Primary Nurse. hj 10:43 Antonino Bishop MD is Attending Physician. 10:43 Triage completed. hj 10:45 Arm band placed on right wrist. hj 10:45 Patient has correct armband on for positive identification. Placed in gown. Bed in low hj position. Call light in reach. Side rails up X 1. Adult w/ patient. 11:44 Initial lab(s) drawn, by me, sent to lab. Inserted saline lock: 20 gauge in right hj antecubital area, using aseptic technique. Blood collected. 12:29 No provider procedures requiring assistance completed. IV discontinued, intact, hj bleeding controlled, No redness/swelling at site. Pressure dressing applied. Administered Medications: 11:16 Drug: Enalaprilat 1.25 mg Route: IV; Rate: calculated rate; Site: right antecubital; 12:30 Follow up: IV Status: Completed infusion 12:30 Follow up: Response: Blood pressure is lowered Outcome: 12:17 Discharge ordered by . 12:30 Discharged to home ambulatory. 12:30 Condition: stable 12:30 Discharge instructions given to patient, Instructed on discharge instructions, follow up and referral plans. Demonstrated understanding of instructions, follow-up care. 12:38 Patient left the ED. bp Signatures: Robbie Rosales, RN RN Laura Whitaker rg4 Antonino Bishop MD MD gs Peltier, Brian, RN RN bp Corrections: (The following items were deleted from the chart) 10:54 10:41 Presenting complaint: Patient states: coming from [facility], BP is high, BP at 1012- hj 210/68; at 1015- 227/66; manual- 250/70; contacted Dr. Mercedes- at 1020; hj 10:55 10:46 99.79 kg; Height 5 ft. 11 in.; BMI: 30.6; hj hj 10:57 10:46 BP 160 / 90; Pulse 63bpm; Resp 18bpm; Pulse Ox 100% RA; Temp 97.8F Temporal; hj 99.79 kg; Height 5 ft. 11 in.; BMI: 30.6; Pain 0/10; hj
[2018-12-23 12:47] VITALS: TEMP 97.8; O2SAT 100
[2018-12-23 12:49] VITALS: BP 188/70
== END 2018-12-23 12:38 | disposition home or self-care (01) ==
LOC: ER 10:37
DX: I13.10 Hypertensive heart and chronic kidney disease without heart failure, with stage 1 through stage 4 chronic kidney disease, or unspecified chronic kidney disease (principal); E11.22 Type 2 diabetes mellitus with diabetic chronic kidney disease; N18.9 Chronic kidney disease, unspecified; Z85.46 Personal history of malignant neoplasm of prostate
CPT/HCPCS: 81003; 96365; 99283

== ENCOUNTER 2019-01-10 10:00 | Emergency (ER) | payer OTHER ==
--- OUTSIDE RECORDS SUMMARY | 2019-01-10 10:06 | XMS REPORT | Clinical Summary ---
:1940 Author Organization [facility] Address [address] [place] [address] Care Team Providers Name Role Phone Unavailable [...] Not on file Results Not on fileafter 01/09/2018 Insurance Payer Benefit Plan / Group Subscriber ID Type Phone Address MEDICARE MEDICARE A B xxxxxxxxxx Medicare Advance Directives For more information, please contact:[address] [phone] Code Status Date Activated Date Inactivated Comments Full Code 10/21/2017 3:49 PM 10/26/2017 4:58 PM This code status was determined by: Patient
--- OUTSIDE RECORDS SUMMARY | 2019-01-10 10:06 | XMS REPORT | Clinical Summary ---
:1940 Author Organization [facility] Address [address] [place] [address] Care Team Providers Name Role Phone Asked, [...] behavior of left kidney (Primary Dx) after 01/09/2018 Social History Tobacco Use Types Packs/Day Years [...] Due Date Last Done Comments SHINGLES VACCINES (#1) 1991 65+ PNEUMOCOCCAL VACCINE (1 of 2 - PCV13) 2006 PNEUMOCOCCAL POLYSACCHARIDE VACCINE AGE 65 AND OVER 2006 INFLUENZA VACCINE 06/12/2018 Procedures Procedure Name Priority Date/Time Associated Diagnosis Comments CT ABDOMEN PELVIS Routine 05/16/2018 2:49 PM Neoplasm of Results for this WO CONTRAST CDT unspecified behavior procedure are in of left kidney the results section. after 01/09/[address] Abdomen Pelvis Wo Contrast (05/16/2018 [...] cm. 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 [facility]-[id number] Procedure Note Interface, Radiology Results Incoming - 05/16/2018 8:54 PM CDT EXAMINATION: CT [...] cm. 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 [facility]-[id number] Performing Organization Address City/State/Zipcode Phone Number [facility] [address] [place] [address] after 01/09/2018 Insurance Payer Benefit Plan / Group Subscriber ID Type Phone Address MEDICARE MEDICARE PART A AND B xxxxxxxxxx Medicare [place], [place] Advance Directives Patient has advance care planning documents on file. For more information, please contact:[facility] [place] [address]
--- OUTSIDE RECORDS SUMMARY | 2019-01-10 10:07 | XMS REPORT ---
:1940 Author Organization [facility] Address [address] [place] [address] Care Team Providers Name Role Phone BANDAR MOORE Unavailable Unavailable Problems This patient has no known problems. Allergies, Adverse Reactions, Alerts This patient has no known allergies or adverse reactions. Medications This patient has no known medications. Results Test Description Test Time Test Comments Text Results Atomic Results Result Comments BLOOD CULTURE 2017-10-27 10:00:00 Test Item Value Reference Range Comments CULTURE (BEAKER) (test amtw=8662) No growth in 5 days BLOOD [id number] 10:00:00 Test Item Value Reference Range Comments CULTURE (BEAKER) (test rkgg=8826) No growth in 5 days POCT-GLUCOSE [id number] 12:18:00 Test Item Value Reference Range Comments POC-GLUCOSE METER (BEAKER) 181 mg/dL 70-110 TESTED AT [address] (test iqnq=3156) [place] [id number] POCT-GLUCOSE [id number] 08:05:00 Test Item Value Reference Range Comments POC-GLUCOSE METER (BEAKER) 143 mg/dL 70-110 TESTED AT [address] (test bqsn=7576) [place] [id number] BASIC METABOLIC [id number] 06:08:00 Test Item Value Reference Range Comments SODIUM (BEAKER) (test 139 meq/L 136-145 enid=866) POTASSIUM (BEAKER) (test 4.3 meq/L 3.5-5.1 efmv=459) CHLORIDE (BEAKER) (test 107 meq/L 98-107 qbai=193) CO2 (BEAKER) (test 23 meq/L 22-29 ajuu=732) BLOOD UREA NITROGEN 40 mg/dL 7-21 (BEAKER) (test trxu=889) CREATININE (BEAKER) (test 2.56 mg/dL 0.57-1.25 ksab=577) GLUCOSE RANDOM (BEAKER) 150 mg/dL 70-105 (test pirp=972) CALCIUM (BEAKER) (test 7.7 mg/dL 8.4-10.2 hezu=893) EGFR (BEAKER) (test 30 mL/min/1.73 sq m ESTIMATED GFR IS NOT ffip=3515) ACCURATE CREATININE CLEARANCE IN PREDICTING GLOMERULAR FILTRATION RATE. ESTIMATED GFR IS NOT APPLICABLE FOR DIALYSIS PATIENTS. [id number] 06:03:00 Test Item Value Reference Range Comments PHOSPHORUS (BEAKER) (test ukwk=807) 3.4 mg/dL 2.3-4.7 [id number] 06:03:00 Test Item Value Reference Range Comments MAGNESIUM (BEAKER) (test qtew=696) 1.9 mg/dL 1.6-2.6 CBC W/PLT COUNT & AUTO [id number] 05:38:00 Test Item Value Reference Range Comments WHITE BLOOD CELL COUNT (BEAKER) (test vopl=376) 9.4 K/ L 3.5-10.5 RED BLOOD CELL COUNT (BEAKER) (test kajn=619) 2.93 M/ L 4.63-6.08 HEMOGLOBIN (BEAKER) (test iebp=189) 7.4 GM/DL 13.7-17.5 HEMATOCRIT (BEAKER) (test wtps=168) 23.0 % 40.1-51.0 MEAN CORPUSCULAR VOLUME (BEAKER) (test bmoz=618) 78.5 fL 79.0-92.2 MEAN CORPUSCULAR HEMOGLOBIN (BEAKER) (test 25.3 pg 25.7-32.2 sfnl=358) MEAN CORPUSCULAR HEMOGLOBIN CONC (BEAKER) (test 32.2 GM/DL 32.3-36.5 sfhe=053) RED CELL DISTRIBUTION WIDTH (BEAKER) (test 17.5 % 11.6-14.4 uhsn=928) PLATELET COUNT (BEAKER) (test lfsr=441) 168 K/CU MM 150-450 MEAN PLATELET VOLUME (BEAKER) (test azwj=133) 12.2 fL 9.4-12.4 NUCLEATED RED BLOOD CELLS (BEAKER) (test 0 /100 WBC 0-0 wtar=597) NEUTROPHILS RELATIVE PERCENT (BEAKER) (test 82 % tmyv=193) LYMPHOCYTES RELATIVE PERCENT (BEAKER) (test 7 % ydsa=549) MONOCYTES RELATIVE PERCENT (BEAKER) (test 9 % caqi=145) EOSINOPHILS RELATIVE PERCENT (BEAKER) (test 2 % tfwu=954) BASOPHILS RELATIVE PERCENT (BEAKER) (test 0 % qxgc=790) NEUTROPHILS ABSOLUTE COUNT (BEAKER) (test 7.65 K/ L 1.78-5.38 jyzb=269) LYMPHOCYTES ABSOLUTE COUNT (BEAKER) (test 0.65 K/ L 1.32-3.57 marm=486) MONOCYTES ABSOLUTE COUNT (BEAKER) (test 0.88 K/ L 0.30-0.82 wldu=837) EOSINOPHILS ABSOLUTE COUNT (BEAKER) (test 0.14 K/ L 0.04-0.54 qzeb=386) BASOPHILS ABSOLUTE COUNT (BEAKER) (test 0.02 K/ L 0.01-0.08 xxiz=026) IMMATURE GRANULOCYTES-RELATIVE PERCENT (BEAKER) 0 % 0-1 (test pwrt=1124) CALCIUM, [id number] 05:36:00 Test Item Value Reference Range Comments CALCIUM IONIZED (BEAKER) (test hgrr=032) 0.89 mmol/L 1.12-1.27 PH, BLOOD (BEAKER) (test dgko=3786) 7.54 POCT-GLUCOSE [id number] 21:59:00 Test Item Value Reference Range Comments POC-GLUCOSE METER (BEAKER) 184 mg/dL 70-110 TESTED AT [address] (test wgis=5999) [place] [id number] POCT-GLUCOSE [id number] 17:35:00 Test Item Value Reference Range Comments POC-GLUCOSE METER (BEAKER) 130 mg/dL 70-110 TESTED AT [address] (test eosd=4838) [facility] [address] POCT-GLUCOSE [id number] 11:42:00 Test Item Value Reference Range Comments POC-GLUCOSE METER (BEAKER) 161 mg/dL 70-110 TESTED AT [address] (test pimn=9272) [place] [id number] POCT-GLUCOSE [id number] 10:42:00 Test Item Value Reference Range Comments POC-GLUCOSE METER (BEAKER) 172 mg/dL 70-110 TESTED AT [address] (test gfsh=0302) [place] [id number] CBC W/PLT COUNT & AUTO [id number] 09:06:00 Test Item Value Reference Range Comments WHITE BLOOD CELL COUNT (BEAKER) (test zadp=724) 10.7 K/ L 3.5-10.5 RED BLOOD CELL COUNT (BEAKER) (test aape=993) 3.06 M/ L 4.63-6.08 HEMOGLOBIN (BEAKER) (test xiur=073) 7.7 GM/DL 13.7-17.5 HEMATOCRIT (BEAKER) (test jugy=464) 23.7 % 40.1-51.0 MEAN CORPUSCULAR VOLUME (BEAKER) (test nrlo=450) 77.5 fL 79.0-92.2 MEAN CORPUSCULAR HEMOGLOBIN (BEAKER) (test 25.2 pg 25.7-32.2 mbiy=670) MEAN CORPUSCULAR HEMOGLOBIN CONC (BEAKER) (test 32.5 GM/DL 32.3-36.5 omjx=745) RED CELL DISTRIBUTION WIDTH (BEAKER) (test 17.0 % 11.6-14.4 xhfv=717) PLATELET COUNT (BEAKER) (test yhsa=735) 154 K/CU MM 150-450 MEAN PLATELET VOLUME (BEAKER) (test mmbo=389) 12.5 fL 9.4-12.4 NUCLEATED RED BLOOD CELLS (BEAKER) (test 0 /100 WBC 0-0 oyln=134) NEUTROPHILS RELATIVE PERCENT (BEAKER) (test 85 % otjz=479) LYMPHOCYTES RELATIVE PERCENT (BEAKER) (test 6 % oagc=323) MONOCYTES RELATIVE PERCENT (BEAKER) (test 8 % scom=562) EOSINOPHILS RELATIVE PERCENT (BEAKER) (test 1 % kjph=924) BASOPHILS RELATIVE PERCENT (BEAKER) (test 0 % iqtb=961) NEUTROPHILS ABSOLUTE COUNT (BEAKER) (test 9.05 K/ L 1.78-5.38 hzwo=685) LYMPHOCYTES ABSOLUTE COUNT (BEAKER) (test 0.63 K/ L 1.32-3.57 qjek=411) MONOCYTES ABSOLUTE COUNT (BEAKER) (test 0.88 K/ L 0.30-0.82 maid=580) EOSINOPHILS ABSOLUTE COUNT (BEAKER) (test 0.06 K/ L 0.04-0.54 faxz=096) BASOPHILS ABSOLUTE COUNT (BEAKER) (test 0.01 K/ L 0.01-0.08 ldyw=867) IMMATURE GRANULOCYTES-RELATIVE PERCENT (BEAKER) 1 % 0-1 (test fvmr=0918) BASIC METABOLIC [id number] 08:20:00 Test Item Value Reference Range Comments SODIUM (BEAKER) (test 142 meq/L 136-145 hkuf=771) POTASSIUM (BEAKER) (test 4.0 meq/L 3.5-5.1 lmgx=848) CHLORIDE (BEAKER) (test 108 meq/L 98-107 nkhq=910) CO2 (BEAKER) (test 25 meq/L 22-29 ojdo=204) BLOOD UREA NITROGEN 41 mg/dL 7-21 (BEAKER) (test cefe=894) CREATININE (BEAKER) (test 2.65 mg/dL 0.57-1.25 fhru=628) GLUCOSE RANDOM (BEAKER) 132 mg/dL 70-105 (test tmpr=910) CALCIUM (BEAKER) (test 7.8 mg/dL 8.4-10.2 mtqb=636) EGFR (BEAKER) (test 29 mL/min/1.73 sq m ESTIMATED GFR IS NOT dnuz=7670) ACCURATE CREATININE CLEARANCE IN PREDICTING GLOMERULAR FILTRATION RATE. ESTIMATED GFR IS NOT APPLICABLE FOR DIALYSIS PATIENTS. [id number] 07:57:00 Test Item Value Reference Range Comments PHOSPHORUS (BEAKER) (test owmy=596) 3.2 mg/dL 2.3-4.7 [id number] 07:57:00 Test Item Value Reference Range Comments MAGNESIUM (BEAKER) (test fnww=170) 1.7 mg/dL 1.6-2.6 CALCIUM, [id number] 07:40:00 Test Item Value Reference Range Comments CALCIUM IONIZED (BEAKER) (test kdbz=455) 0.95 mmol/L 1.12-1.27 PH, BLOOD (BEAKER) (test nirw=9393) 7.53 POCT-GLUCOSE [id number] 21:39:00 Test Item Value Reference Range Comments POC-GLUCOSE METER (BEAKER) 138 mg/dL 70-110 TESTED AT [facility] [address] [facility] (test ifab=1330) [facility] [address] POCT-GLUCOSE [id number] 18:16:00 Test Item Value Reference Range Comments POC-GLUCOSE METER (BEAKER) 158 mg/dL 70-110 TESTED AT [facility] [address] [facility] (test fydq=4159) [facility] [address] POCT-GLUCOSE [id number] 12:07:00 Test Item Value Reference Range Comments POC-GLUCOSE METER (BEAKER) 153 mg/dL 70-110 TESTED AT [facility] [address] [facility] (test dhcy=3853) [facility] [address] POCT-GLUCOSE [id number] 08:12:00 Test Item Value Reference Range Comments POC-GLUCOSE METER (BEAKER) 133 mg/dL 70-110 TESTED AT [place] [id number] [facility] (test yqsr=7290) [facility] [address] BASIC METABOLIC [id number] 05:25:00 Test Item Value Reference Range Comments SODIUM (BEAKER) (test 142 meq/L 136-145 amou=332) POTASSIUM (BEAKER) (test 4.0 meq/L 3.5-5.1 dfts=667) CHLORIDE (BEAKER) (test 109 meq/L 98-107 dcan=833) CO2 (BEAKER) (test 24 meq/L 22-29 yccs=959) BLOOD UREA NITROGEN 47 mg/dL 7-21 (BEAKER) (test bknc=196) CREATININE (BEAKER) (test 3.13 mg/dL 0.57-1.25 hlnq=478) GLUCOSE RANDOM (BEAKER) 130 mg/dL 70-105 (test eqlv=267) CALCIUM (BEAKER) (test 7.6 mg/dL 8.4-10.2 ydbw=528) EGFR (BEAKER) (test 24 mL/min/1.73 sq m ESTIMATED GFR IS NOT uvns=2881) ACCURATE CREATININE CLEARANCE IN PREDICTING GLOMERULAR FILTRATION RATE. ESTIMATED GFR IS NOT APPLICABLE FOR DIALYSIS PATIENTS. CALCIUM, [id number] 05:23:00 Test Item Value Reference Range Comments CALCIUM IONIZED (BEAKER) (test ivrh=602) 0.88 mmol/L 1.12-1.27 PH, BLOOD (BEAKER) (test fkft=1171) 7.50 [id number] 05:22:00 Test Item Value Reference Range Comments PHOSPHORUS (BEAKER) (test urfi=981) 3.7 mg/dL 2.3-4.7 [id number] 05:22:00 Test Item Value Reference Range Comments MAGNESIUM (BEAKER) (test sdxq=927) 1.8 mg/dL 1.6-2.6 CBC W/PLT COUNT & AUTO [id number] 05:10:00 Test Item Value Reference Range Comments WHITE BLOOD CELL COUNT (BEAKER) (test kvep=955) 12.5 K/ L 3.5-10.5 RED BLOOD CELL COUNT (BEAKER) (test xrfv=777) 2.83 M/ L 4.63-6.08 HEMOGLOBIN (BEAKER) (test belg=148) 7.2 GM/DL 13.7-17.5 HEMATOCRIT (BEAKER) (test eigo=528) 22.2 % 40.1-51.0 MEAN CORPUSCULAR VOLUME (BEAKER) (test rhxz=450) 78.4 fL 79.0-92.2 MEAN CORPUSCULAR HEMOGLOBIN (BEAKER) (test 25.4 pg 25.7-32.2 qemt=983) MEAN CORPUSCULAR HEMOGLOBIN CONC (BEAKER) (test 32.4 GM/DL 32.3-36.5 zprz=225) RED CELL DISTRIBUTION WIDTH (BEAKER) (test 16.4 % 11.6-14.4 axxp=542) PLATELET COUNT (BEAKER) (test xlcb=799) 128 K/CU MM 150-450 MEAN PLATELET VOLUME (BEAKER) (test ebkh=963) 12.1 fL 9.4-12.4 NUCLEATED RED BLOOD CELLS (BEAKER) (test 0 /100 WBC 0-0 msvc=008) NEUTROPHILS RELATIVE PERCENT (BEAKER) (test 86 % ovrv=795) LYMPHOCYTES RELATIVE PERCENT (BEAKER) (test 5 % xcjy=695) MONOCYTES RELATIVE PERCENT (BEAKER) (test 8 % duki=610) EOSINOPHILS RELATIVE PERCENT (BEAKER) (test 0 % lmtm=088) BASOPHILS RELATIVE PERCENT (BEAKER) (test 0 % coug=116) NEUTROPHILS ABSOLUTE COUNT (BEAKER) (test 10.79 K/ L 1.78-5.38 mgxj=369) LYMPHOCYTES ABSOLUTE COUNT (BEAKER) (test 0.61 K/ L 1.32-3.57 gnrj=830) MONOCYTES ABSOLUTE COUNT (BEAKER) (test 0.96 K/ L 0.30-0.82 plcl=107) EOSINOPHILS ABSOLUTE COUNT (BEAKER) (test 0.05 K/ L 0.04-0.54 yjst=343) BASOPHILS ABSOLUTE COUNT (BEAKER) (test 0.02 K/ L 0.01-0.08 tilc=643) IMMATURE GRANULOCYTES-RELATIVE PERCENT (BEAKER) 0 % 0-1 (test vebs=4734) HEMOGLOBIN AND [id number] 00:40:00 Test Item Value Reference Range Comments HEMOGLOBIN (BEAKER) (test flvh=999) 7.1 GM/DL 13.7-17.5 HEMATOCRIT (BEAKER) (test naqt=654) 21.6 % 40.1-51.0 Send specimen after 2 units PRBC transfusion is completedPOCT-GLUCOSE [id number] 21:20:00 Test Item Value Reference Range Comments POC-GLUCOSE METER (BEAKER) 114 mg/dL 70-110 TESTED AT [address] (test ogow=7874) [place] [address] POCT-GLUCOSE [id number] 17:14:00 Test Item Value Reference Range Comments POC-GLUCOSE METER (BEAKER) 92 mg/dL 70-110 TESTED AT [address] (test fnso=8086) [place] [address] ANG, EMBOLIZATION, EXTENSIVE - [id number] 15:08:00Reason for exam:-> left kidney intraparenchymal hemorrhageReason for exam:->please review filmsand consider embolization, please call Dr Duke with urology to discuss- [phone] REPORT Renal arteriogram: Pertinent clinical information: Left [...] guide wire was advanced centrally. A 5 [place] catheter was advanced with its distal tip [...] Saige Ashford Verified Date/Time: 201615:08:40 Reading Location: [place] [address] Angio Body Reading Room URINE [id number] 10:50:00 Test Item Value Reference Range Comments CULTURE (BEAKER) (test fgdd=0681) No growth [id number] 10:38:00 Test Item Value Reference Range Comments PROTIME (BEAKER) (test yhwj=422) 17.5 seconds 11.7-14.7 INR (BEAKER) (test taiw=658) 1.4 <=5.9 PARTIAL THROMBOPLASTIN TIME (BEAKER) (test 34.3 seconds 22.5-36.0 tioh=687) RECOMMENDED COUMADIN/WARFARIN INR THERAPY RANGESSTANDARD DOSE: 2.0 - 3.0 Includes: PROPHYLAXIS forvenous thrombosis, systemic embolization; TREATMENT for venous thrombosis and/or pulmonary embolus.HIGH RISK: Target INR is 2.5-3.5 for patients with mechanical heart valves.CBC W/PLT COUNT & AUTO [id number] 08:42:00 Test Item Value Reference Range Comments WHITE BLOOD CELL COUNT 14.4 K/ L 3.5-10.5 (BEAKER) (test acvp=982) RED BLOOD CELL COUNT (BEAKER) 2.45 M/ L 4.63-6.08 (test imdv=297) HEMOGLOBIN (BEAKER) (test 5.9 GM/DL 13.7-17.5 exid=530) HEMATOCRIT (BEAKER) (test 18.6 % 40.1-51.0 jyep=574) MEAN CORPUSCULAR VOLUME 75.9 fL 79.0-92.2 (BEAKER) (test tbth=001) MEAN CORPUSCULAR HEMOGLOBIN 24.1 pg 25.7-32.2 (BEAKER) (test rbou=241) MEAN CORPUSCULAR HEMOGLOBIN 31.7 GM/DL 32.3-36.5 CONC (BEAKER) (test yucw=592) RED CELL DISTRIBUTION WIDTH 15.8 % 11.6-14.4 (BEAKER) (test lxhd=279) PLATELET COUNT (BEAKER) (test 112 K/CU MM 150-450 jxsi=326) MEAN PLATELET VOLUME (BEAKER) fL 9.4-12.4 Unable to report due to (test nkbi=441) abnormal Platelet population distribution. NUCLEATED RED BLOOD CELLS 0 /100 WBC 0-0 (BEAKER) (test lyml=440) NEUTROPHILS RELATIVE PERCENT 85 % (BEAKER) (test vzms=364) LYMPHOCYTES RELATIVE PERCENT 5 % (BEAKER) (test mzku=004) MONOCYTES RELATIVE PERCENT 9 % (BEAKER) (test mmvo=082) EOSINOPHILS RELATIVE PERCENT 1 % (BEAKER) (test jjpp=479) BASOPHILS RELATIVE PERCENT 0 % (BEAKER) (test jers=395) NEUTROPHILS ABSOLUTE COUNT 12.25 K/ L 1.78-5.38 (BEAKER) (test bdtj=359) LYMPHOCYTES ABSOLUTE COUNT 0.76 K/ L 1.32-3.57 (BEAKER) (test idvh=943) MONOCYTES ABSOLUTE COUNT 1.25 K/ L 0.30-0.82 (BEAKER) (test yqzm=041) EOSINOPHILS ABSOLUTE COUNT 0.08 K/ L 0.04-0.54 (BEAKER) (test nxzi=135) BASOPHILS ABSOLUTE COUNT 0.02 K/ L 0.01-0.08 (BEAKER) (test bcak=607) IMMATURE GRANULOCYTES-RELATIVE 1 % 0-1 PERCENT (BEAKER) (test lnon=5963) BASIC METABOLIC [id number] 07:46:00 Test Item Value Reference Range Comments SODIUM (BEAKER) (test 140 meq/L 136-145 orpg=502) POTASSIUM (BEAKER) (test 3.9 meq/L 3.5-5.1 uxvv=410) CHLORIDE (BEAKER) (test 107 meq/L 98-107 egob=848) CO2 (BEAKER) (test 24 meq/L 22-29 tagv=866) BLOOD UREA NITROGEN 50 mg/dL 7-21 (BEAKER) (test rpqh=403) CREATININE (BEAKER) (test 3.68 mg/dL 0.57-1.25 zxbi=406) GLUCOSE RANDOM (BEAKER) 110 mg/dL 70-105 (test auqf=502) CALCIUM (BEAKER) (test 7.2 mg/dL 8.4-10.2 lajf=038) EGFR (BEAKER) (test 20 mL/min/1.73 sq m ESTIMATED GFR IS NOT gbve=7030) ACCURATE CREATININE CLEARANCE IN PREDICTING GLOMERULAR FILTRATION RATE. ESTIMATED GFR IS NOT APPLICABLE FOR DIALYSIS PATIENTS. [id number] 07:41:00 Test Item Value Reference Range Comments PHOSPHORUS (BEAKER) (test qwym=701) 3.5 mg/dL 2.3-4.7 [id number] 07:41:00 Test Item Value Reference Range Comments MAGNESIUM (BEAKER) (test hxek=883) 1.8 mg/dL 1.6-2.6 POCT-GLUCOSE [id number] 07:13:00 Test Item Value Reference Range Comments POC-GLUCOSE METER (BEAKER) 124 mg/dL 70-110 TESTED AT [address] (test mrqr=4804) [facility] [address] CT, [id number] 00:22:00FINAL REPORT CT, ABDOMEN \T \ PELVIS, [...] MDReport Verified Date/Time: 10/23/2017 00:22:43 Reading Location: [address] Body Reading Room CREATINE KINASE (CK)[id number] 21 :31:00 Test Item Value Reference Range Comments CREATINE KINASE TOTAL (BEAKER) (test rqnr=826) 167 U/L 29-200 LACTIC ACID, VENOUS, WHOLE [id number] 21:24:00 Test Item Value Reference Range Comments LACTATE BLOOD VENOUS (2) (BEAKER) (test 0.8 mmol/L 0.5-2.2 cxti=5681) Effective 03/15/2016: Units/Reference Range ChangeNew: 0.5-2.2 mmol/L Previous: 5 -20 mg/dLPOCT-GLUCOSE [id number] 21:23:00 Test Item Value Reference Range Comments POC-GLUCOSE METER (BEAKER) 130 mg/dL 70-110 TESTED AT [facility] [address] (test qbff=0490) [facility] [address] SODIUM, RANDOM [id number] 20:29:00 Test Item Value Reference Range Comments SODIUM URINE (BEAKER) (test fkns=856) 24 meq/L Reference Range: No NormalsCREATININE, RANDOM [id number] 20:27:00 Test Item Value Reference Range Comments CREATININE URINE (BEAKER) (test bckz=490) 155.1 mg/dL Reference Range: No NormalsPROTEIN, RANDOM [id number] 20:27:00 Test Item Value Reference Range Comments PROTEIN, URINE (BEAKER) (test wmqk=0378) 60 mg/dL 0-14 URINALYSIS W/ [id number] 20:27:00 Test Item Value Reference Range Comments COLOR (BEAKER) (test krqy=572) Yellow CLARITY (BEAKER) (test vnlw=855) Hazy SPECIFIC GRAVITY UA (BEAKER) (test wqbg=245) 1.010 1.001-1.035 PH UA (BEAKER) (test bpig=825) 5.0 5.0-8.0 PROTEIN UA (BEAKER) (test wpjn=486) 70 mg/dL Negative GLUCOSE UA (BEAKER) (test rdcq=247) Negative Negative KETONES UA (BEAKER) (test dtlp=291) Negative Negative BILIRUBIN UA (BEAKER) (test nlvs=896) Negative Negative BLOOD UA (BEAKER) (test heat=168) Moderate Negative NITRITE UA (BEAKER) (test adej=756) Negative Negative LEUKOCYTE ESTERASE UA (BEAKER) (test bgob=928) Large Negative UROBILINOGEN UA (BEAKER) (test csxg=884) 0.2 mg/dL 0.2-1.0 RBC UA (BEAKER) (test zicl=484) 85 /HPF WBC UA (BEAKER) (test dixr=540) 0 /HPF BACTERIA (BEAKER) (test qckj=758) Many MUCUS (BEAKER) (test lhwk=3715) Few SQUAMOUS EPITHELIAL (BEAKER) (test amim=046) 5 /HPF CASTS (BEAKER) (test xqpn=3686) 5 /LPF CRYSTALS, URINE (BEAKER) (test ehiu=6497) Moderate YEAST (BEAKER) (test cvtz=7803) Few SOURCE(BEAKER) (test fuuk=4011) Urine, [place] POCT-GLUCOSE [id number] 17:05:00 Test Item Value Reference Range Comments POC-GLUCOSE METER (BEAKER) 113 mg/dL 70-110 TESTED AT [address] (test yfre=6762) [facility] [address] [id number] 16:24:00 Test Item Value Reference Range Comments PROSTATE SPECIFIC ANTIGEN (BEAKER) (test zdzq=469) 0.0 ng/mL 0.0-4.0 POCT-GLUCOSE [id number] 11:21:00 Test Item Value Reference Range Comments POC-GLUCOSE METER (BEAKER) 146 mg/dL 70-110 TESTED AT [address] (test lvfd=9068) [place] [id number] HEMOGLOBIN AND [id number] 11:19:00 Test Item Value Reference Range Comments HEMOGLOBIN (BEAKER) (test ycxw=462) 6.4 GM/DL 13.7-17.5 HEMATOCRIT (BEAKER) (test fsuz=215) 20.0 % 40.1-51.0 U/S, RENAL, [id number] 09:08:00Reason for exam:->left intraparenchymal hematoma on CTFINAL REPORT Renal ultrasound dated 10/22/2017 Comment: Real-time transabdominal renal ultrasound was performed.Right kidney measures 13.9 x 7.0 x 5.7 cm. Left kidney yrsjyeem71.3 x 9.7 x 9.2 cm. Right renal [...] MDReport Verified Date/Time: 10/22/2017 09:08:47 Reading Location: [facility] [id number] Ultrasound Reading Room POCT-GLUCOSE [id number] 08:05:00 Test Item Value Reference Range Comments POC-GLUCOSE METER (BEAKER) 154 mg/dL 70-110 TESTED AT [facility] [address] [facility] (test unsu=3062) [facility] [address] URINALYSIS W/ [id number] 07:56:00 Test Item Value Reference Range Comments COLOR (BEAKER) (test zqdh=268) Yellow CLARITY (BEAKER) (test giiq=069) Hazy SPECIFIC GRAVITY UA (BEAKER) (test rbml=090) 1.013 1.001-1.035 PH UA (BEAKER) (test azzg=122) 5.0 5.0-8.0 PROTEIN UA (BEAKER) (test tzzz=587) 100 mg/dL Negative GLUCOSE UA (BEAKER) (test eram=818) Negative Negative KETONES UA (BEAKER) (test xzwk=198) Negative Negative BILIRUBIN UA (BEAKER) (test xnsc=066) Negative Negative BLOOD UA (BEAKER) (test deqs=874) Moderate Negative NITRITE UA (BEAKER) (test xpxq=440) Negative Negative LEUKOCYTE ESTERASE UA (BEAKER) (test szgt=984) Negative Negative UROBILINOGEN UA (BEAKER) (test wmmc=017) 0.2 mg/dL 0.2-1.0 RBC UA (BEAKER) (test zttj=121) 13 /HPF WBC UA (BEAKER) (test tnnw=862) 1 /HPF BACTERIA (BEAKER) (test ujsj=620) Rare MUCUS (BEAKER) (test owzh=8961) Rare SQUAMOUS EPITHELIAL (BEAKER) (test boel=594) 1 /HPF HYALINE CASTS (BEAKER) (test evzt=693) 3 /LPF AMORPHOUS CRYSTALS (BEAKER) (test dlhs=0768) Rare SOURCE(BEAKER) (test akuv=3175) Urine, Voided COMPREHENSIVE METABOLIC [id number] 07:45:00 Test Item Value Reference Range Comments TOTAL PROTEIN (BEAKER) 6.2 gm/dL 6.0-8.3 (test czau=265) ALBUMIN (BEAKER) (test 3.4 g/dL 3.5-5.0 ixst=0317) ALKALINE PHOSPHATASE 53 U/L 40-150 (BEAKER) (test acjk=317) BILIRUBIN TOTAL (BEAKER) 0.5 mg/dL 0.2-1.2 (test tvmo=054) SODIUM (BEAKER) (test 141 meq/L 136-145 itej=379) POTASSIUM (BEAKER) (test 4.2 meq/L 3.5-5.1 zmjo=169) CHLORIDE (BEAKER) (test 105 meq/L 98-107 qjkv=409) CO2 (BEAKER) (test 21 meq/L 22-29 qgbb=996) BLOOD UREA NITROGEN 44 mg/dL 7-21 (BEAKER) (test yznh=995) CREATININE (BEAKER) (test 4.16 mg/dL 0.57-1.25 xjvh=214) GLUCOSE RANDOM (BEAKER) 121 mg/dL 70-105 (test jolg=696) CALCIUM (BEAKER) (test 7.6 mg/dL 8.4-10.2 iaio=572) AST (SGOT) (BEAKER) (test 12 U/L 5-34 gfki=416) ALT (SGPT) (BEAKER) (test 7 U/L 6-55 bicx=180) EGFR (BEAKER) (test 17 mL/min/1.73 sq m ESTIMATED GFR IS NOT ucst=0477) ACCURATE CREATININE CLEARANCE IN PREDICTING GLOMERULAR FILTRATION RATE. ESTIMATED GFR IS NOT APPLICABLE FOR DIALYSIS PATIENTS. CBC W/PLT COUNT & AUTO [id number] 05:44:00 Test Item Value Reference Range Comments WHITE BLOOD CELL COUNT (BEAKER) (test uxja=135) 17.6 K/ L 3.5-10.5 RED BLOOD CELL COUNT (BEAKER) (test zsdm=589) 3.06 M/ L 4.63-6.08 HEMOGLOBIN (BEAKER) (test mnwq=527) 7.2 GM/DL 13.7-17.5 HEMATOCRIT (BEAKER) (test qhxd=321) 22.7 % 40.1-51.0 MEAN CORPUSCULAR VOLUME (BEAKER) (test zrsh=775) 74.2 fL 79.0-92.2 MEAN CORPUSCULAR HEMOGLOBIN (BEAKER) (test 23.5 pg 25.7-32.2 fdpf=941) MEAN CORPUSCULAR HEMOGLOBIN CONC (BEAKER) (test 31.7 GM/DL 32.3-36.5 zndp=949) RED CELL DISTRIBUTION WIDTH (BEAKER) (test 15.2 % 11.6-14.4 ezse=126) PLATELET COUNT (BEAKER) (test duag=219) 199 K/CU MM 150-450 MEAN PLATELET VOLUME (BEAKER) (test cunb=009) 13.8 fL 9.4-12.4 NUCLEATED RED BLOOD CELLS (BEAKER) (test 0 /100 WBC 0-0 pcff=385) NEUTROPHILS RELATIVE PERCENT (BEAKER) (test 88 % kkgi=477) LYMPHOCYTES RELATIVE PERCENT (BEAKER) (test 5 % ycvd=116) MONOCYTES RELATIVE PERCENT (BEAKER) (test 6 % gfll=131) EOSINOPHILS RELATIVE PERCENT (BEAKER) (test 0 % scis=657) BASOPHILS RELATIVE PERCENT (BEAKER) (test 0 % tods=774) NEUTROPHILS ABSOLUTE COUNT (BEAKER) (test 15.47 K/ L 1.78-5.38 wxty=981) LYMPHOCYTES ABSOLUTE COUNT (BEAKER) (test 0.88 K/ L 1.32-3.57 xotk=974) MONOCYTES ABSOLUTE COUNT (BEAKER) (test 1.12 K/ L 0.30-0.82 lola=876) EOSINOPHILS ABSOLUTE COUNT (BEAKER) (test 0.00 K/ L 0.04-0.54 gyqc=421) BASOPHILS ABSOLUTE COUNT (BEAKER) (test 0.02 K/ L 0.01-0.08 bjyo=524) IMMATURE GRANULOCYTES-RELATIVE PERCENT (BEAKER) 1 % 0-1 (test xfyo=5535) POCT-GLUCOSE [id number] 22:09:00 Test Item Value Reference Range Comments POC-GLUCOSE METER (BEAKER) 165 mg/dL 70-110 TESTED AT [facility] [address] [facility] (test oxwv=0722) [place] [id number] 16:51:00 Test Item Value Reference Range Comments PROTIME (BEAKER) (test mbua=244) 17.9 seconds 11.7-14.7 INR (BEAKER) (test vzxr=130) 1.5 <=5.9 PARTIAL THROMBOPLASTIN TIME (BEAKER) (test 23.0 seconds 22.5-36.0 rghj=214) RECOMMENDED COUMADIN/WARFARIN INR THERAPY RANGESSTANDARD DOSE: 2.0 - 3.0 Includes: PROPHYLAXIS forvenous thrombosis, systemic embolization; TREATMENT for venous thrombosis and/or pulmonary embolus.HIGH RISK: Target INR is 2.5-3.5 for patients with mechanical heart valves.POCT-GLUCOSE [id number] 16:36:00 Test Item Value Reference Range Comments POC-GLUCOSE METER (BEAKER) 222 mg/dL 70-110 TESTED AT [facility] [address] (test vnpe=1274) [facility] [address]
[2019-01-10] MEDS ORDERED: HYDRALAZINE HCL 20 MG/ML VIAL ONE (10:38)
[2019-01-10 10:58] LABS: Absolute Lymphocytes (CBC) 0.9 K/uL (0.7-4.9); Absolute Monocytes 0.5 K/uL (0.1-1.3); Absolute Neutrophil 7.1 K/uL (1.8-8.0); Basophils % 0.5 % (0-1.3); Eosinophils % 2.5 % (0-4.4); Hematocrit 31.6 % (39.6-49.0); Lymphocytes % 10.7 % (15.3-44.8); MPV 10.7 fL (7.6-11.3); Monocytes % 5.5 % (3.3-12.3); RBC Red Blood Cell Count 4.55 M/uL (4.33-5.43)
--- NOTE | 2019-01-10 11:16 | ER ---
Nurse's Notes [facility] Name: Steve Lopez Jr Age: 78 yrs Sex: Male : 1940 Arrival Date: 01/10/2019 Time: 10:02 Bed 20 Private MD: Diagnosis: Essential (primary) hypertension Presentation: 01/10 10:03 Presenting complaint: Pt received from [facility]. Pt was scheduled to receive an iron ed1 infusion today but presented with high blood pressure. was notified and patient was told to come to the ER. Transition of care: Same day surgery. Onset of symptoms was January 10, 2019. Risk Assessment: Do you want to hurt yourself or someone else? Patient reports no desire to harm self or others. Initial Sepsis Screen: Does the patient meet any 2 criteria? No. Patient's initial sepsis screen is negative. Does the patient have a suspected source of infection? No. Patient's initial sepsis screen is negative. Care prior to arrival: None. 10:03 Method Of Arrival: Wheelchair ed1 10:03 Acuity: NATHANIEL 2 ed1 Triage Assessment: 10:07 General: Appears in no apparent distress. Behavior is calm, cooperative. Pain: Denies ed1 pain. EENT: No signs and/or symptoms were reported regarding the EENT system. Neuro: Level of Consciousness is awake, alert, obeys commands, Oriented to person, place, time, situation, Denies weakness blurred vision dizziness, headache. Cardiovascular: Denies chest pain, Heart tones S1 S2 present Chest pain is denied. Respiratory: Airway is patent Respiratory effort is even, unlabored, Respiratory pattern is regular, symmetrical, Breath sounds are clear bilaterally. Denies cough, shortness of breath. GI: Patient currently denies diarrhea, nausea, vomiting. : No signs and/or symptoms were reported regarding the genitourinary system. Derm: Skin is intact, is healthy with good turgor, Skin is dry, Skin is normal, Skin temperature is warm. Musculoskeletal: Circulation, motion, and sensation intact. Range of motion: intact in all extremities. Historical: - Allergies: 10:07 No Known Allergies; ed1 - Home Meds: 10:07 clonidine HCl 0.3 mg oral tab 1 tab three times a day [Active]; furosemide 40 mg Oral ed1 tab 1 tab 2 times per day [Active]; carvedilol 6.25 mg oral tab 1 tab 2 times per day [Active]; atorvastatin 10 mg Oral tab 1 tab once daily [Active]; allopurinol 100 mg Oral tab every morning [Active]; - PMHx: 10:07 Diabetes - IDDM; Hypertension; Prostate Cancer; Kidney Disease; Glaucoma; Heart attack; ed1 - Immunization history:: Adult Immunizations up to date. - Social history:: Smoking status: Patient/guardian denies using tobacco. - Ebola Screening: : Patient negative for fever greater than or equal to 101.5 degrees Fahrenheit, and additional compatible Ebola Virus Disease symptoms Patient denies exposure to infectious person Patient denies travel to an Ebola-affected area in the 21 days before illness onset No symptoms or risks identified at this time. Screenin:10 Abuse screen: Denies threats or abuse. Denies injuries from another. Nutritional ed1 screening: No deficits noted. Tuberculosis screening: No symptoms or risk factors identified. Fall Risk None identified. Assessment: 10:10 General: See triage assessment. ed1 10:53 Reassessment: Patient appears in no apparent distress at this time. Patient and/or ed1 family updated on plan of care and expected duration. Pain level reassessed. Patient is alert, oriented x 3, equal unlabored respirations, skin warm/dry/pink. Patient denies pain at this time. 11:20 Reassessment: Patient appears in no apparent distress at this time. Patient and/or ed1 family updated on plan of care and expected duration. Pain level reassessed. Patient is alert, oriented x 3, equal unlabored respirations, skin warm/dry/pink. Patient denies pain at this time. Vital Signs: 10:07 BP 246 / 66 LA Sitting (auto/reg); Pulse 50; Resp 16; Temp 97.3(O); Pulse Ox 100% on ed1 R/A; Weight 97.52 kg; Height 5 ft. 10 in. (177.80 cm); Pain 0/10; 10:10 BP 240 / 69 RA Sitting (auto/reg); Pulse 73; Resp 17; Pulse Ox 100% on R/A; Pain 0/10; ed1 10:53 BP 186 / 62 RA Supine (auto/reg); Pulse 51; Resp 12; Pulse Ox 100% on R/A; Pain 0/10; ed1 11:20 BP 180 / 57; Pulse 48; Resp 16; Pulse Ox 100% on R/A; Pain 0/10; ed1 10:07 Body Mass Index 30.85 (97.52 kg, 177.80 cm) ed1 ED Course: 10:02 Patient arrived in ED. ed1 10:04 Triage completed. ed1 10:07 Arm band placed on. ed1 10:10 Awaiting ED provider evaluation. ed1 10:10 Patient has correct armband on for positive identification. Placed in gown. Bed in low ed1 position. Call light in reach. Side rails up X2. stitcher hand on. Pulse ox on. NIBP on. 10:11 Jocelyn Tan RN is Primary Nurse. ed1 10:15 Chapo Newman PA is PHCP. jr8 10:15 Saturnino Kaplan MD is Attending Physician. jr8 10:23 Initial lab(s) drawn, by ED staff, sent to lab. Inserted saline lock: 20 gauge in right ed1 antecubital area, using aseptic technique. Blood collected. 10:55 EKG done, by chief medical technologist. reviewed by Chapo DEE. dt2 11:15 Lucy Mercedes MD is Referral Physician. jr8 11:20 No provider procedures requiring assistance completed. IV discontinued, intact, ed1 bleeding controlled, No redness/swelling at site. Pressure dressing applied. Administered Medications: 10:31 Drug: hydrALAZINE 10 mg Route: IV; Rate: calculated rate; Site: left antecubital; ed1 10:54 Follow up: Response: No adverse reaction; Blood pressure is lowered; IV Status: ed1 Completed infusion; IV Intake: 0.5ml Intake: 10:54 IV: 1ml; Total: 1ml. ed1 Outcome: 11:15 Discharge ordered by . jr8 11:20 Discharged to home ambulatory. ed1 11:20 Condition: good 11:20 Discharge instructions given to patient, Instructed on discharge instructions, follow up and referral plans. Demonstrated understanding of instructions, follow-up care. 11:24 Patient left the ED. ed1 Signatures: Jocelyn Tan RN RN ed1 Chapo Newman PA PA jr8 Laly Hendrix dt2
--- NOTE | 2019-01-10 11:16 | EDPHYS ---
Physician Documentation [facility] Name: Steve Lopez Jr Age: 78 yrs Sex: Male : 1940 Arrival Date: 01/10/2019 Time: 10:02 Bed 20 Private MD: ED Physician Saturnino Kaplan HPI: 01/10 11:12 This 78 yrs old Black Male presents to ER via Wheelchair with complaints of High Blood jr8 Pressure. 11:12 The patient has elevated blood pressure and discovered this at hospital. Onset: The jr8 symptoms/episode began/occurred acutely, today. Associated signs and symptoms: The patient has no apparent associated signs or symptoms. The patient has experienced similar episodes in the past, a few times. The patient has been recently seen by a physician:. Patient has been undergoing medication changes for chronically elevated HTN. Was at hospital today for iron transfusion and noted it to be in the 200s. Brought to ED for evaluation at that time. Currently without any symptoms . Historical: - Allergies: 10:07 No Known Allergies; ed1 - Home Meds: 10:07 clonidine HCl 0.3 mg oral tab 1 tab three times a day [Active]; furosemide 40 mg Oral ed1 tab 1 tab 2 times per day [Active]; carvedilol 6.25 mg oral tab 1 tab 2 times per day [Active]; atorvastatin 10 mg Oral tab 1 tab once daily [Active]; allopurinol 100 mg Oral tab every morning [Active]; - PMHx: 10:07 Diabetes - IDDM; Hypertension; Prostate Cancer; Kidney Disease; Glaucoma; Heart attack; ed1 - Immunization history:: Adult Immunizations up to date. - Social history:: Smoking status: Patient/guardian denies using tobacco. - Ebola Screening: : Patient negative for fever greater than or equal to 101.5 degrees Fahrenheit, and additional compatible Ebola Virus Disease symptoms Patient denies exposure to infectious person Patient denies travel to an Ebola-affected area in the 21 days before illness onset No symptoms or risks identified at this time. ROS: 11:12 Eyes: Negative for injury, pain, redness, and discharge, ENT: Negative for injury, jr8 pain, and discharge, Neck: Negative for injury, pain, and swelling, Cardiovascular: Negative for chest pain, palpitations, and edema, Respiratory: Negative for shortness of breath, cough, wheezing, and pleuritic chest pain, Abdomen/GI: Negative for abdominal pain, nausea, vomiting, diarrhea, and constipation, Back: Negative for injury and pain, MS/Extremity: Negative for injury and deformity, Skin: Negative for injury, rash, and discoloration, Neuro: Negative for headache, weakness, numbness, tingling, and seizure. Exam: 11:12 Eyes: Pupils equal round and reactive to light, extra-ocular motions intact. Lids and jr8 lashes normal. Conjunctiva and sclera are non-icteric and not injected. Cornea within normal limits. Periorbital areas with no swelling, redness, or edema. ENT: Nares patent. No nasal discharge, no septal abnormalities noted. Tympanic membranes are normal and external auditory canals are clear. Oropharynx with no redness, swelling, or masses, exudates, or evidence of obstruction, uvula midline. Mucous membranes moist. Neck: Trachea midline, no thyromegaly or masses palpated, and no cervical lymphadenopathy. Supple, full range of motion without nuchal rigidity, or vertebral point tenderness. No Meningismus. Cardiovascular: Regular rate and rhythm with a normal S1 and S2. No gallops, murmurs, or rubs. Normal PMI, no JVD. No pulse deficits. Respiratory: Lungs have equal breath sounds bilaterally, clear to auscultation and percussion. No rales, rhonchi or wheezes noted. No increased work of breathing, no retractions or nasal flaring. Abdomen/GI: Soft, non-tender, with normal bowel sounds. No distension or tympany. No guarding or rebound. No evidence of tenderness throughout. Back: No spinal tenderness. No costovertebral tenderness. Full range of motion. Skin: Warm, dry with normal turgor. Normal color with no rashes, no lesions, and no evidence of cellulitis. MS/ Extremity: Pulses equal, no cyanosis. Neurovascular intact. Full, normal range of motion. Neuro: Awake and alert, GCS 15, oriented to person, place, time, and situation. Cranial nerves II-XII grossly intact. Motor strength 5/5 in all extremities. Sensory grossly intact. Cerebellar exam normal. Normal gait. Vital Signs: 10:07 BP 246 / 66 LA Sitting (auto/reg); Pulse 50; Resp 16; Temp 97.3(O); Pulse Ox 100% on ed1 R/A; Weight 97.52 kg; Height 5 ft. 10 in. (177.80 cm); Pain 0/10; 10:10 BP 240 / 69 RA Sitting (auto/reg); Pulse 73; Resp 17; Pulse Ox 100% on R/A; Pain 0/10; ed1 10:53 BP 186 / 62 RA Supine (auto/reg); Pulse 51; Resp 12; Pulse Ox 100% on R/A; Pain 0/10; ed1 11:20 BP 180 / 57; Pulse 48; Resp 16; Pulse Ox 100% on R/A; Pain 0/10; ed1 10:07 Body Mass Index 30.85 (97.52 kg, 177.80 cm) ed1 MDM: 10:23 Patient medically screened. jr8 11:12 Data reviewed: vital signs, nurses notes, lab test result(s), EKG, and as a result, I 8 will discharge patient. Data interpreted: Pulse oximetry: on room air is 100 %. Interpretation: normal. Counseling: I had a detailed discussion with the patient and/or guardian regarding: the historical points, exam findings, and any diagnostic results supporting the discharge/admit diagnosis, lab results, the need for outpatient follow up, Renal specialist , to return to the emergency department if symptoms worsen or persist or if there are any questions or concerns that arise at home. ED course: Consulted Dr. Edwards to make him aware that there has been a slight increase in patients blood urea nitrogen and Creatinine. Wants patient to make appointment for 2 weeks from now. Otherwise ok to go home. Patient good with this plan . 01/10 10:24 Order name: CBC with Diff 8 01/10 10:24 Order name: Basic Metabolic Panel; Complete Time: 11:05 8 01/10 10:24 Order name: EKG - Nurse/Tech; Complete Time: 10:31 8 01/10 10:24 Order name: IV; Complete Time: 10:25 8 01/10 11:01 Order name: CBC Smear Scan EDMS Administered Medications: 10:31 Drug: hydrALAZINE 10 mg Route: IV; Rate: calculated rate; Site: left antecubital; ed1 10:54 Follow up: Response: No adverse reaction; Blood pressure is lowered; IV Status: ed1 Completed infusion; IV Intake: 0.5ml Disposition: 19:10 Co-signature as Attending Physician, Saturnino Kaplan MD I agree with the assessment and kdr plan of care. Disposition: 01/10/19 11:15 Discharged to Home. Impression: Essential (primary) hypertension. - Condition is Stable. - Discharge Instructions: Hypertension, Managing Your Hypertension. - Medication Reconciliation Form, Thank You Letter, Antibiotic Education, Prescription Opioid Use form. - Follow up: Lucy Mercedes MD; When: 10 - 14 days; Reason: Recheck today's complaints, Continuance of care, Re-evaluation by your physician. - Problem is new. - Symptoms have improved. Signatures: Dispatcher [employer] EDMS Saturnino Kaplan MD MD kdr Riggs, Erika, RN RN ed1 Chapo Newman PA PA jr8 Corrections: (The following items were deleted from the chart) 11:24 11:15 01/10/2019 11:15 Discharged to Home. Impression: Essential (primary) ed1 hypertension. Condition is Stable. Forms are Medication Reconciliation Form, Thank You Letter, Antibiotic Education, Prescription Opioid Use. Follow up: Lucy Mercedes; When: 10 - 14 days; Reason: Recheck today's complaints, Continuance of care, Re-evaluation by your physician. Problem is new. Symptoms have improved. jr8
[2019-01-10 11:25] LABS: Anisocytosis 2+; Blood Morphology Comment NOTED (NOT SEEN); Elliptocytes 1+; Platelet Estimate ADEQ; Poikilocytosis 1+; Urine White Blood Cell Casts OK
[2019-01-10 11:32] VITALS: TEMP 97.3; O2SAT 100
[2019-01-10 11:36] VITALS: BP 180/57
--- NOTE | 2019-01-10 22:29 | EKG ---
Test Date: 2019-01-10 Test Time: 10:27:15 Drop Worker: TU MEASUREMENT RESULTS: Intervals: Rate: 48 NH: 148 QRSD: 108 QT: 488 QTc: 435 [place]: P: 40 NH: 148 QRS: -41 T: -49 INTERPRETIVE STATEMENTS: Marked sinus bradycardia with sinus arrhythmia Left axis deviation Incomplete right bundle branch block Voltage criteria for left ventricular hypertrophy T wave abnormality, consider lateral ischemia Abnormal ECG Compared to ECG 11/06/2018 07:01:01 Incomplete right bundle-branch block now present Left ventricular hypertrophy now present T-wave abnormality now present Possible ischemia now present Sinus rhythm no longer present ST (T wave) deviation no longer present Prolonged QT interval no longer present Electronically Signed On 01-10-19 22:27:51 OCCASIONAL BABYSITTER by Gamal Lazo
== END 2019-01-10 11:24 | disposition home or self-care (01) ==
LOC: ER 10:00
DX: E11.9 Type 2 diabetes mellitus without complications (principal); Z85.46 Personal history of malignant neoplasm of prostate; I25.2 Old myocardial infarction
CPT/HCPCS: 96365; 93005; 85025; 80048; 36415; 99284; J0360

== ENCOUNTER 2019-08-07 07:19 | Inpatient (IN) | payer OTHER ==
[2019-08-06 14:51] LABS: Absolute Lymphocytes (CBC) 0.8 K/uL (0.7-4.9); Basophils % 0.7 % (0-1.3); Hematocrit 19.7 % (39.6-49.0); Lymphocytes % 10.6 % (15.3-44.8); MPV 9.6 fL (7.6-11.3)
[2019-08-06 15:04] LABS: Blood Morphology Comment NOTED (NOT SEEN); Hypochromasia 1+; Platelet Estimate ADEQ; Urine White Blood Cell Casts OK
[2019-08-06 15:17] LABS: Ferritin 14.3 ng/mL (26-388)
[2019-08-07] MEDS ORDERED: ALPRAZOLAM 0.5 MG TABLET PO ONE (09:49)
[2019-08-07] MEDS: FUROSEMIDE 40 MG/4 ML VIAL IV SCH ×2 (11:12→17:34)
[2019-08-07] MEDS: HYDRALAZINE HCL 25 MG TABLET PO SCH ×2 (11:12→11:24)
--- NOTE | 2019-08-07 11:19 | RAD REPORT ---
EXAM DESCRIPTION: RAD - Chest Single View - 08/07/2019 10:35 am CLINICAL HISTORY: COPD Chest pain. COMPARISON: Chest Single View dated 11/07/2018; Chest Single View dated 11/06/2018; Chest Single Vie w dated 10/21/2017; Chest Single View dated 01/18/2017 FINDINGS: Portable technique limits examination quality. Mild to moderate improvement in CHF pattern since the comparative study. The heart is significantly e nlarged in size. Trace left pleural fluid. No displaced fractures. IMPRESSION: Mild to moderate improvement in CHF.
[2019-08-07] MEDS ORDERED: INFLUENZA VACCINE (for 3y+) 0.5 ML DOSE IMVAC ONE (12:00)
--- NOTE | 2019-08-07 15:17 | P.HP ---
Certification for Inpatient Patient admitted to: Inpatient With expected LOS: >2 Midnights Practitioner: I am a practitioner with admitting privileges, knowledge of patient current condition, hospital course, and medical plan of care. Services: Services provided to patient in accordance with Admission requirements found in Title 42 Section 412.3 of the Code of Federal Regulations Patient History Date of Service: 08/07/19 Reason for admission: HTN urgency/Atrial fibrillation History of Present Illness: This is a 78 yr old male with PMH of MGUS, DM, CKD, CAD, CHF and hx of prostate cancer s/p prostatectomy who was admitted to the Hospital from Day surgery due to hypertensive urgency and new atrial fibrillation. Patient was sent to day surgery for a transfusion for his Hgb drop to 6 (from 12 two weeks ago). Prior to getting transfused, patient's bp was 200's/100's and he was noted to be in atrial fibrillation/abnormal heart rhythm. Patient was fairly asymptomatic but due to his blood pressure, he was unable to get blood and we were called to admit patient for further evaluation. Allergies No Known Allergies Allergy (Verified 01/29/19 10:39) Home medications list reviewed: Yes Home Medications: Atorvastatin Calcium [Lipitor*] 10 mg PO DAILY 12/12/16 Allopurinol [Zyloprim*] 100 mg PO DAILY #30 tab 12/25/16 cloNIDine HCl [Catapres*] 0.3 mg PO TID 11/06/18 Carvedilol [Coreg] 6.25 mg PO BID 08/07/19 Furosemide [Lasix*] 40 mg PO DAILY 08/07/19 - Past Medical/Surgical History Has patient received pneumonia vaccine in the past: Yes Diabetic: Yes -: Diabetes mellitus type 2 -: Hypertension -: History of prostate cancer with prostatectomy -: Chronic renal disease, multi cystic kidney disease -: CHF -: CAD -: Prostate surgery about 20 years ago Psychosocial/ Personal History: The patient is . He has 3 children. - Family History Father -: Heart disease, Hypertension - Social History Smoking Status: Never smoker Alcohol use: No CD- Drugs: No Caffeine use: No Place of Residence: Home Review of Systems 10-point ROS is otherwise unremarkable Physical Examination - Vital Signs Temperature: 97.2 F Blood Pressure: 201/62 Pulse: 50 Respirations: 18 Pulse Ox (%): 99 - Physical Exam General: Alert, In no apparent distress, Oriented x3 HEENT: Atraumatic, PERRLA, Mucous membr. moist/pink, EOMI, Sclerae nonicteric Neck: Supple, 2+ carotid pulse no bruit, No LAD, Without JVD or thyroid abnormality Respiratory: Clear to auscultation bilaterally, Normal air movement Cardiovascular: Regular rate/rhythm, Normal S1 S2 Gastrointestinal: Normal bowel sounds, No tenderness Musculoskeletal: No tenderness Integumentary: No rashes Neurological: Normal gait, Normal speech, Normal strength at 5/5 x4 extr, Normal tone, Normal affect Lymphatics: No axilla or inguinal lymphadenopathy - Studies Laboratory Data (last 24 hrs) 08/06/19 14:00: WBC 7.2, Hgb 6.3 L*, Hct 19.7 L*, Plt Count 225 Assessment and Plan - Problems (Diagnosis) (1) Hypertensive urgency Current Visit: Yes Status: Acute (2) Acute on chronic anemia Current Visit: Yes Status: Acute (3) MGUS (monoclonal gammopathy of unknown significance) Current Visit: Yes Status: Acute (4) Diastolic heart failure Current Visit: No Status: Acute Qualifiers: Heart failure chronicity: acute on chronic Qualified Code(s): I50.33 - Acute on chronic diastolic (congestive) heart failure (5) CKD (chronic kidney disease) Onset Date: 11/07/18 Current Visit: No Status: Chronic (6) Essential hypertension Current Visit: No Status: Chronic (7) Type 2 diabetes mellitus Current Visit: No Status: Chronic Qualifiers: 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 -EKG ordered, pending -Transfuse 2 units PRBCs once BP better controlled. May need to give a dose of lasix in between units of blood. -Hold chemical AC d/t anemia -Protonix for GI prophylaxis. - Advance Directives Does patient have a Living Will: No Does patient have a Durable POA for Healthcare: No Time Spent Managing Pts Care (In Minutes): 55
[2019-08-07] MEDS: CLONIDINE HCL 0.3 MG TAB PO SCH ×2 (15:32→21:15)
[2019-08-07 20:09] LABS: Urine Appearance CLEAR; Urine Bilirubin NEGATIVE (NEG); Urine Blood NEGATIVE (NEG); Urine Color YELLOW; Urine Glucose NEGATIVE (NEG); Urine Microscopic Reflex ORDER UMIC; Urine Protein 2+ (NEG); Urine Specific Gravity <=1.005 (1.005-1.030); Urine Urobilinogen 0.2 mg/dL (0.2-1.0); Urine pH 6.5 (5.0-7.0)
[2019-08-07] MEDS: SOD FERRIC GLUC COMPLX/SUCROSE 250 MG in NA CHLORIDE 0.9% 250 ML IV SCH (20:12)
[2019-08-07] MEDS: ATORVASTATIN 10 MG TAB PO SCH (20:12)
[2019-08-07 20:19] LABS: Urine Bacteria NONE SEEN /HPF (NONE SEEN); Urine Culture Reflex Order NOT NEEDED; Urine RBC <5 /HPF (NONE SEEN)
[2019-08-07] MEDS ORDERED: CARVEDILOL 3.125 MG TAB PO SCH (21:00)
[2019-08-07] MEDS ORDERED: CARVEDILOL 12.5 MG TAB PO SCH (21:00)
[2019-08-07] MEDS ORDERED: HYDRALAZINE HCL 25 MG TABLET PO SCH (21:00)
--- NOTE | 2019-08-07 23:06 | CON ---
Date of Consultation: 08/07/2019 Reason For Consultation: Elevated BUN and creatinine, edema, high uncontrolled hypertension. History Of Present Illness: This is a pleasant 78-year-old gentleman, well known to me from the [facility] with significant past medical history of hypertension, hyperlipidemia, chronic kidney disease stag e 4, baseline creatinine around 2.7-3, GFR around 20 secondary to light chain disease/diabetes nephro kiran, chronic leg edema secondary to minoxidil before, light chain disease, follow up with Oncology in remission, prostate CA status post TURP, diabetes complicated with neuropathy, no retinopathy, emerald ycystic kidney disease. Patient was in his regular state of health. Follow up with Oncology. Marie leyva was sent for blood transfusion. Upon arrival to the hospital, his blood pressure was around systo lic 240. For that reason, patient was admitted to the hospital. In the hospital, patient started on some diuresis and patient usually gets anxious when on any outpatient treatment. For that reason, p madhu was giving Xanax. When I interviewed the patient, the patient was sleepy, but a blood pressur e still elevated. Patient has atrial fibrillation with bradycardia down to the 40. Patient denied a ny chest pain, any nausea, any vomiting. He still has leg swelling without any shortness of breath. Past Medical History: 1.Hypertension. 2.Hyperlipidemia. 3.Diabetes complicated with neuropathy and nephropathy, no retinopathy. 4.Prostate CA, status post TURP. 5.Light chain disease, on remission. Follow up with Dr. Villalobos. 6.Chronic kidney disease secondary to polycystic kidney disease/light chain disease/diabetes nephrop athy, stage IV, proteinuric. 7.Chronic lymphedema secondary to minoxidil and lymphedema. Allergies: NO KNOWN DRUGS ALLERGY. Past Surgical History: Include TURP. Social History: Ex-smoker. Denied alcohol. Denied drugs abuse. Home Medications: 1.Clonidine. 2.Zestril. 3.Lasix. 4.Carvedilol 6.25 b.i.d. 5.Calcitriol. Review of Systems: Head and Neck: No red eye. No ear pain. GI: No nausea, no vomiting. : No polyuria, no dysuria, no hematuria. Briquetter Operator: Not applicable. Respiratory: No shortness of breath. Cardiovascular: Has leg swelling. Endocrine: No polydipsia. Skin: No rash. Neurologic: Has neuropathy. Musculoskeletal: No joint pain. Physical Examination: Vital Signs: When I saw the patient, blood pressure 240/80, pulse of 40. Chest: Decreased entry at bilateral base. Heart: S1, S2, systolic murmur. Abdomen: Soft, nontender. Extremities: +2 edema. Laboratory Data: WBC 7.2, H and H 6.3/19.7, platelet of 225. Sodium of 144, potassium 4.2, bicarb 2 6, BUN 51, creatinine 3.4, GFR of 21, calcium 7.9. LFT within normal limit. T-sat of 5.9. PTH back on May 15. Chest x-ray; cardiomegaly with mild congestion. Assessment And Plan: 1.Chronic kidney disease, stage IV, advanced with slightly on the over volume side with uncontrolled blood pressure. I am going to go ahead and increase his Lasix to 40 mg b.i.d. Continue clonidine. Decrease carvedilol to 3.125 b.i.d. Start the patient on hydralazine 25 t.i.d. and we will monitor the patient. 2.Anemia of chronic kidney disease/iron deficiency anemia. We will start the patient on IV iron and we will follow up the patient. 3.We will arrange for blood transfusion. 4.Secondary hyperparathyroid. Continue calcitriol. 5.Gout. Continue allopurinol. 6.Edema. We will increase Lasix and we will monitor the patient. 7.Bradycardia/atrial fibrillation. Follow up with Cardiology. 8.Diabetes as by primary. 9.Light chain disease. Follow up with Oncology. Thank you, Dr. Cardoza, for allowing us to participate in the care of your patient. LISSA Voice ID: [id number] Report ID: [id number]
[2019-08-07] MEDS: ALPRAZOLAM 0.25 MG TABLET PO PRN (23:58)
[2019-08-08] MEDS ORDERED: HYDRALAZINE HCL 20 MG/ML VIAL IV ONE ×2 (00:30→06:00)
[2019-08-08] MEDS ORDERED: NA CHLORIDE 0.9% 250 ML ONE (01:50)
[2019-08-08] MEDS: HYDRALAZINE HCL 20 MG/ML VIAL IV PRN (04:35)
[2019-08-08 06:31] LABS: Albumin 3.2 g/dL (3.4-5.0); Phosphorus 3.8 mg/dL (2.5-4.9); Potassium 3.8 mmol/L (3.5-5.1); Thyroid Stimulating Hormone 0.949 uIU/mL (0.360-3.740); Uric Acid 7.4 mg/dL (3.5-7.2)
[2019-08-08] MEDS: HYDRALAZINE HCL 25 MG TABLET PO SCH ×4 (08:26→21:38)
[2019-08-08] MEDS: CLONIDINE HCL 0.3 MG TAB PO SCH ×3 (08:27→21:38)
[2019-08-08] MEDS: ALLOPURINOL 100 MG TAB PO SCH (08:27)
[2019-08-08] MEDS: FUROSEMIDE 40 MG/4 ML VIAL IV SCH ×2 (08:28→17:00)
--- NOTE | 2019-08-08 08:40 | EKG ---
Test Date: 2019-08-07 Test Time: 11:01:43 Physicist Acoustics: A006 MEASUREMENT RESULTS: Intervals: Rate: 43 [place]: 156 QRSD: 112 QT: 512 QTc: 432 [place]: P: 32 IN: 156 QRS: -31 T: 212 INTERPRETIVE STATEMENTS: Marked sinus bradycardia with marked sinus arrhythmia Left axis deviation Moderate voltage criteria for LVH, may be normal variant T wave abnormality, consider lateral ischemia Abnormal ECG Compared to ECG 01/10/2019 10:27:15 Incomplete right bundle-branch block no longer present T-wave abnormality still present Possible ischemia still present Electronically Signed On 08-08-19 08:39:18 CDT by Kalyan Whitten
[2019-08-08] MEDS ORDERED: NIFEDIPINE XL 60 MG TABLET PO SCH (09:00)
--- NOTE | 2019-08-08 09:34 | CON ---
History Of Present Illness: Mr. Lopez is 78, came to the hospital because his blood pressure was hi gh, not having chest pain or shortness of breath or any other particular acute difficulty. He is sudha luisa in the hospital. His blood pressure still remains high as 227/90 right now during the exam. The patient has no history of coronary heart disease, myocardial infarction, stroke or stents. He was k nown to have a normal ejection fraction in 2018 right around [place]. He was given several medicat ions which he no longer takes, but he says he is not allergic or intolerant to any medications. He h as renal insufficiency. His creatinine today is 2.96. His hemoglobin is also very low at 6.3. He i s microcytic. I do not know if we have been able to find that he has GI bleeding, but we would certa inly suspect that there may be blood loss causing this anemia with the microcytosis certainly needs t o be addressed or treating his blood pressure. I am very much in favor of dihydropyridine type calci um blockers in addition to clonidine in a situation like this, and hydralazine. I will love to try a nd come to an acceptable blood pressure control regimen that the patient can continue. COCO/DEONTE Voice ID: [id number] Report ID: [id number]
[2019-08-08] MEDS: SPIRONOLACTONE 25 MG TABLET PO SCH (13:09)
--- NOTE | 2019-08-08 13:29 | P.PN ---
Subjective Date of Service: 08/08/19 Chief Complaint: HTN urgency/Atrial fibrillation Subjective: No new changes Pt with CKD and light chain disease, was scheduled for OP blood transfusion, found to have HTN emergency Today No new complaints BP still high BB dc due to bradycadia started on Nifedipine Will add aldactone IF BP Still uncontrolled then , will try increase his aldacotne, Nifedipine and consider starting ISMN cont IV iron Physical Examination - Vital Signs Temperature: 98.0 F Blood Pressure: 199/82 Pulse: 59 Respirations: 15 Pulse Ox (%): 97 - Physical Exam General: Oriented x3 HEENT: Atraumatic Neck: Supple, Without JVD or thyroid abnormality Respiratory: Clear to auscultation bilaterally, Normal air movement Cardiovascular: Other (trace edema), Edema Gastrointestinal: Soft and benign, Non-distended - Studies Laboratory Data (last 24 hrs) 08/08/19 05:20: Sodium 144, Potassium 3.8, BUN 46 H, Creatinine 2.96 H, Glucose 131 H, Uric Acid 7.4 H, Phosphorus 3.8 Assessment And Plan - Current Problems (Diagnosis) (1) Diastolic heart failure Current Visit: No Status: Acute Qualifiers: Heart failure chronicity: acute on chronic Qualified Code(s): I50.33 - Acute on chronic diastolic (congestive) heart failure (2) CKD (chronic kidney disease) Onset Date: 11/07/18 Current Visit: No Status: Chronic (3) Essential hypertension Current Visit: No Status: Chronic - Plan HTN emergency On Clonidine , Nifedipine and hydralazine and lasix will start Aldactone low salt diet KAYLA cont IV iron and light chain disease transfuse to keep Hb >7.0 light chain disease Hematology F/U MBD Cont calcitriol DM as per primary C
--- NOTE | 2019-08-08 17:00 | P.PN ---
Subjective Date of Service: 08/08/19 Chief Complaint: HTN urgency/Atrial fibrillation Subjective: No new changes, No C/O voiced Patient seen and examined at bedside. No family at bedside. Chart reviewed and case discussed with nursing staff. Continues to have a high blood pressure No acute events noted overnight No complaints this morning Review of Systems 10-point ROS is otherwise unremarkable Physical Examination - Vital Signs Temperature: 97.4 F Blood Pressure: 229/84 Pulse: 52 Respirations: 18 Pulse Ox (%): 100 - Physical Exam General: Alert, In no apparent distress, Oriented x3 HEENT: Atraumatic, PERRLA, EOMI Neck: Supple, JVD not distended Respiratory: Clear to auscultation bilaterally, Normal air movement Cardiovascular: Regular rate/rhythm, Normal S1 S2 Gastrointestinal: Normal bowel sounds, No tenderness Musculoskeletal: No tenderness Integumentary: No rashes Neurological: Normal speech, Normal tone, Normal affect Lymphatics: No axilla or inguinal lymphadenopathy - Studies Laboratory Data (last 24 hrs) 08/08/19 05:20: Sodium 144, Potassium 3.8, BUN 46 H, Creatinine 2.96 H, Glucose 131 H, Uric Acid 7.4 H, Phosphorus 3.8 Assessment And Plan - Current Problems (Diagnosis) (1) Hypertensive urgency Current Visit: Yes Status: Acute (2) Acute on chronic anemia Current Visit: Yes Status: Acute (3) MGUS (monoclonal gammopathy of unknown significance) Current Visit: Yes Status: Acute (4) Diastolic heart failure Current Visit: No Status: Acute Qualifiers: Heart failure chronicity: acute on chronic Qualified Code(s): I50.33 - Acute on chronic diastolic (congestive) heart failure (5) CKD (chronic kidney disease) Onset Date: 11/07/18 Current Visit: No Status: Chronic (6) Essential hypertension Current Visit: No Status: Chronic (7) Type 2 diabetes mellitus Current Visit: No Status: Chronic Qualifiers: Diabetes mellitus rn long term care insulin use: with rn long term care use Diabetes mellitus complication status: without complication Qualified Code(s): E11.9 - Type 2 diabetes mellitus without complications; Z79.4 - termination clerk (current) use of insulin - Plan -continue to monitor in ICU -HTN medications: clonidine, hydralazine. Next item pain and Aldactone added. If continues to be elevated, will consider increasing dose of nifedipine versus adding isosorbide mononitrate. -Lasix for IV diuresis -Nephrology consult, Recommendations appreciated -Cardiology consult, recommendations appreciated. -Transfuse 2 units PRBCs once BP better controlled. May need to give a dose of lasix in between units of blood. -Hold chemical AC d/t anemia -Protonix for GI prophylaxis. Critical Care: Yes
--- NOTE | 2019-08-08 17:54 | RAD REPORT ---
EXAM DESCRIPTION: US - Renal Ultrasound-Complete - 08/08/2019 5:19 pm CLINICAL HISTORY: Acute kidney injury COMPARISON: Renal ultrasound October 2018, CT study 2018 FINDINGS: The right kidney measures 11.9 x 5.6 x 6.7 cm. The left kidney measures 15.0 x 8.1 x 7.7 cm. Renal size measurements are difficult to obtain and compare due to the distortion of renal contou rs by the numerous renal cysts. This makes it difficult to compare 1 study to the next. No hydronephr osis present. Cortical echogenicity is increased. Cortical thickness is normal. Patient has multiple bilateral renal cysts. Two exophytic 4 centimeter anechoic cysts are present on the right. Patient has numerous additional smaller cysts in the upper and mid portions of the right k idney. These are anechoic to minimally hypoechoic. Prior CT imaging showed hyperdense and hypodense c ysts. No one cyst show suspicious characteristics. On the left there is a 10 centimeter cyst in the upper pole of the left kidney. This matches the prio r CT study. Multiple additional much smaller cysts are scattered in the mid and lower pole of the lef t kidney. No solid mass suspected. No bladder wall thickening or mass. No intraluminal stone or mass. IMPRESSION: No hydronephrosis is present. Increased cortical echogenicity is present consistent with medical renal disease. Multiple bilateral renal cysts are present. Comparison to prior imaging is difficult due to the large number of bilateral cysts. Significant change to the cyst pattern from October 2018 is not suspecte d.
[2019-08-08] MEDS ORDERED: LIDOCAINE 1% MPF 5 ML VIAL ONE (19:21)
[2019-08-08] MEDS: ATORVASTATIN 10 MG TAB PO SCH (21:39)
[2019-08-09] MEDS: HYDRALAZINE HCL 20 MG/ML VIAL IV PRN (02:30)
[2019-08-09 05:22] LABS: Absolute Lymphocytes (CBC) 1.2 K/uL (0.7-4.9); Basophils % 0.8 % (0-1.3); Hematocrit 26.2 % (39.6-49.0); Lymphocytes % 10.9 % (15.3-44.8); MPV 9.1 fL (7.6-11.3); RBC Red Blood Cell Count 3.88 M/uL (4.33-5.43)
[2019-08-09 05:36] LABS: Albumin 3.2 g/dL (3.4-5.0); Phosphorus 3.6 mg/dL (2.5-4.9); Potassium 3.7 mmol/L (3.5-5.1)
[2019-08-09] MEDS: CLONIDINE HCL 0.3 MG TAB PO SCH ×3 (07:26→21:08)
[2019-08-09] MEDS: MINOXIDIL 2.5 MG TAB PO SCH ×2 (07:26→21:00)
[2019-08-09] MEDS: SPIRONOLACTONE 25 MG TABLET PO SCH (07:27)
[2019-08-09] MEDS: HYDRALAZINE HCL 25 MG TABLET PO SCH ×4 (07:27→21:07)
[2019-08-09] MEDS: ALLOPURINOL 100 MG TAB PO SCH (07:28)
[2019-08-09] MEDS: FUROSEMIDE 40 MG/4 ML VIAL IV SCH ×2 (07:28→17:07)
[2019-08-09] MEDS: NIFEDIPINE XL 60 MG TABLET PO SCH (08:03)
--- NOTE | 2019-08-09 11:50 | P.PN ---
Subjective Date of Service: 08/09/19 Chief Complaint: HTN urgency/Atrial fibrillation Patient seen and examined at bedside. No family at bedside. Chart reviewed and case discussed with nursing staff. Blood pressures now improved. No acute events noted overnight No complaints this morning Review of Systems 10-point ROS is otherwise unremarkable Physical Examination - Vital Signs Temperature: 98.7 F Blood Pressure: 233/75 Pulse: 68 Respirations: 14 Pulse Ox (%): 96 - Physical Exam General: Alert, In no apparent distress HEENT: Atraumatic, PERRLA, EOMI Neck: Supple, JVD not distended Respiratory: Clear to auscultation bilaterally, Normal air movement Cardiovascular: Regular rate/rhythm, Normal S1 S2 Gastrointestinal: Normal bowel sounds, No tenderness Musculoskeletal: No tenderness Integumentary: No rashes Neurological: Normal speech, Normal tone, Normal affect Lymphatics: No axilla or inguinal lymphadenopathy - Studies Laboratory Data (last 24 hrs) 08/09/19 05:08: WBC 11.2 H D, Hgb 8.3 L, Hct 26.2 L D, Plt Count 267 08/09/19 05:08: Sodium 144, Potassium 3.7, BUN 45 H, Creatinine 3.21 H, Glucose 131 H, Phosphorus 3.6 Assessment And Plan - Current Problems (Diagnosis) (1) Hypertensive urgency Current Visit: Yes Status: Acute (2) Acute on chronic anemia Current Visit: Yes Status: Acute (3) MGUS (monoclonal gammopathy of unknown significance) Current Visit: Yes Status: Acute (4) Diastolic heart failure Current Visit: No Status: Acute Qualifiers: Heart failure chronicity: acute on chronic Qualified Code(s): I50.33 - Acute on chronic diastolic (congestive) heart failure (5) CKD (chronic kidney disease) Onset Date: 11/07/18 Current Visit: No Status: Chronic (6) Essential hypertension Current Visit: No Status: Chronic (7) Type 2 diabetes mellitus Current Visit: No Status: Chronic Qualifiers: Diabetes mellitus alf insulin use: with alf use Diabetes mellitus complication status: without complication Qualified Code(s): E11.9 - Type 2 diabetes mellitus without complications; Z79.4 - skilled nursing (current) use of insulin - Plan -hemodynamically stable, can transfer to the floor. -HTN medications: clonidine, hydralazine, doxazosin, nifedipine -Lasix for IV diuresis -Nephrology consult, Recommendations appreciated -Cardiology consult, recommendations appreciated. -Hgb improved to 8 without any blood products. Monitor Hgb and transfuse only if Hgb less than 7 -Hold chemical AC d/t anemia -Protonix for GI prophylaxis.
--- NOTE | 2019-08-09 12:02 | PN ---
Date of Progress Note: 08/09/2019 Patient doing slightly better, blood pressure better controlled. Physical Examination: Vital Signs: Blood pressure 156/80, pulse of 88. Chest: Clear to auscultation. Heart: S1, S2. Systolic murmur. Abdomen: Soft, nontender. Extremities: +1 edema. Laboratory Data: WBC 11.2, H and H 8.3/26.2, platelets 267. Sodium 144, potassium 3.7, bicarb 24, B UN 45, creatinine 3.2. GFR has been dropped to 23. Calcium 8.1, uric acid 7.4, phosphorous 3.6. PT H 138, albumin 3.2. Current Medications: The patient on include: 1.IV iron. 2.Atorvastatin. 3.Clonidine 0.3 t.i.d. 4.Hydralazine 50 q.i.d. 5.Nifedipine. 6.Spironolactone. 7.Lasix. 8.Allopurinol. Assessment And Plan: 1.Chronic kidney disease stage 4. Stable around his baseline. No over volume. Continue current do se of Lasix. 2.Urgent hypertension, currently blood pressures have been responding. I am going to go ahead and c hange the hydralazine to 100 mg q.i.d. The patient had been added minoxidil 2.5, before patient had some reaction to the minoxidil as outpatient with severe lymphedema and leg swelling. We will monito r for the time being. I am going to add Cardura and we will follow up the patient. 3.Diabetes, as by primary. 4.Iron-deficiency anemia with light chain disease. Continue IV iron. We will follow up with Huey moulton MA/DEONTE Voice ID: [id number] Report ID: [id number]
[2019-08-09] MEDS: DOXAZOSIN 2 MG TAB PO SCH (21:07)
[2019-08-09] MEDS: ATORVASTATIN 10 MG TAB PO SCH (21:08)
[2019-08-10] MEDS: HYDRALAZINE HCL 20 MG/ML VIAL IV PRN (04:30)
[2019-08-10 06:12] VITALS: BMI 30.2
[2019-08-10] MEDS: CLONIDINE HCL 0.3 MG TAB PO SCH ×3 (09:17→21:36)
[2019-08-10] MEDS: SPIRONOLACTONE 25 MG TABLET PO SCH (09:17)
[2019-08-10] MEDS: DOXAZOSIN 2 MG TAB PO SCH ×2 (09:17→21:34)
[2019-08-10] MEDS: HYDRALAZINE HCL 25 MG TABLET PO SCH ×4 (09:17→21:00)
[2019-08-10] MEDS: NIFEDIPINE XL 60 MG TABLET PO SCH (09:18)
[2019-08-10] MEDS: FUROSEMIDE 40 MG/4 ML VIAL IV SCH (09:18)
[2019-08-10 09:29] LABS: Absolute Lymphocytes (CBC) 1.1 K/uL (0.7-4.9); Basophils % 0.8 % (0-1.3); Hematocrit 23.1 % (39.6-49.0); Lymphocytes % 11.4 % (15.3-44.8); MPV 8.6 fL (7.6-11.3); RBC Red Blood Cell Count 3.47 M/uL (4.33-5.43)
[2019-08-10] MEDS: ALLOPURINOL 100 MG TAB PO SCH (09:29)
[2019-08-10] MEDS: MINOXIDIL 2.5 MG TAB PO SCH ×2 (09:38→21:39)
[2019-08-10 09:45] LABS: Albumin 2.8 g/dL (3.4-5.0); Potassium 3.5 mmol/L (3.5-5.1)
[2019-08-10 12:55] LABS: Anisocytosis 1+; Blood Morphology Comment NOTED (NOT SEEN); Ovalocytes SLIGHT; Platelet Estimate ADEQ; Poikilocytosis 2+; Urine White Blood Cell Casts OK
[2019-08-10 12:56] LABS: Hypochromasia 1+; Polychromasia SLIGHT; Teardrop Cell FEW
[2019-08-10] MEDS ORDERED: NA CHLORIDE 0.9% 250 ML IV SCH (13:00)
--- NOTE | 2019-08-10 13:11 | P.PN ---
Subjective Date of Service: 08/10/19 Chief Complaint: HTN urgency/Atrial fibrillation Subjective: No C/O voiced, Improving Patient seen and examined at bedside. No family at bedside. Chart reviewed and case discussed with nursing staff. Blood pressures now improved. No acute events noted overnight No complaints this morning Review of Systems 10-point ROS is otherwise unremarkable Physical Examination - Vital Signs Temperature: 98.1 F Blood Pressure: 150/69 Pulse: 74 Respirations: 16 Pulse Ox (%): 98 - Physical Exam General: Alert, In no apparent distress HEENT: Atraumatic, PERRLA, EOMI Neck: Supple, JVD not distended Respiratory: Clear to auscultation bilaterally, Normal air movement Cardiovascular: Regular rate/rhythm, Normal S1 S2 Gastrointestinal: Normal bowel sounds, No tenderness Musculoskeletal: No tenderness Integumentary: No rashes Neurological: Normal speech, Normal tone, Normal affect Lymphatics: No axilla or inguinal lymphadenopathy - Studies Laboratory Data (last 24 hrs) 08/10/19 09:17: WBC 9.5 D, Hgb 7.5 L*, Hct 23.1 L, Plt Count 238 08/10/19 09:17: Sodium 143, Potassium 3.5, BUN 54 H, Creatinine 3.91 H, Glucose 195 H, Phosphorus 4.0 Assessment And Plan - Current Problems (Diagnosis) (1) Hypertensive urgency Current Visit: Yes Status: Acute (2) Acute on chronic anemia Current Visit: Yes Status: Acute (3) MGUS (monoclonal gammopathy of unknown significance) Current Visit: Yes Status: Acute (4) Diastolic heart failure Current Visit: No Status: Acute Qualifiers: Heart failure chronicity: acute on chronic Qualified Code(s): I50.33 - Acute on chronic diastolic (congestive) heart failure (5) CKD (chronic kidney disease) Onset Date: 11/07/18 Current Visit: No Status: Chronic (6) Essential hypertension Current Visit: No Status: Chronic (7) Type 2 diabetes mellitus Current Visit: No Status: Chronic Qualifiers: Diabetes mellitus assisted insulin use: with assisted use Diabetes mellitus complication status: without complication Qualified Code(s): E11.9 - Type 2 diabetes mellitus without complications; Z79.4 - rn long term care (current) use of insulin - Plan -hemodynamically stable, can transfer to the floor. -HTN medications: clonidine, hydralazine, doxazosin, nifedipine -Lasix for IV diuresis -Nephrology consult, Recommendations appreciated -Cardiology consult, recommendations appreciated. -Hgb did drop again, will go ahead and transfuse 1 unit. -Hold chemical AC d/t anemia -Protonix for GI prophylaxis. Disposition: Anticipate discharge home once blood transfusion is done and if patient remains stable.
--- NOTE | 2019-08-10 17:51 | PN ---
Date of Progress Note: 08/10/2019 Subjective: Patient was admitted with uncontrolled urgent hypertensive symptomatic anemia. Physical Examination: Vital Signs: When I saw the patient, blood pressure 140/64, pulse of 60. Chest: Clear to auscultation. Heart: S1, S2 regular. Abdomen: Soft, nontender. Extremities: +1 edema. Laboratory Data: WBC 9.5, H and H 7.3/23.1, platelets 238. Sodium 143; potassium 3.5; bicarb 24; BU N 54; creatinine 3.9, slightly lower than his baseline. Calcium 7.9, albumin 2.8. PTH 138. Current Medications: IV iron, atorvastatin, doxazosin, clonidine, nifedipine, spironolactone, and mi noxidil. Assessment And Plan: 1.Chronic kidney disease stage 4, secondary to diabetes nephropathy, light chain disease, mild decli ne in the kidney function. No uremia. No hyperkalemia mostly secondary to hypertension. We will mo nitor. 2.Hypertension, controlled, optimal with urgent hypertension crisis recovered. Continue current med ication. I am going to go ahead and decrease his Lasix to daily. 3.Anemia secondary to iron deficiency. We will plan for transfusion today. Continue IV iron. 4.Light chain, stable as by Oncology. 5.Edema, resolve. Decrease Lasix to once a day. LISSA Voice ID: [id number] Report ID: [id number]
[2019-08-10] MEDS: ALPRAZOLAM 0.25 MG TABLET PO PRN (21:34)
[2019-08-10] MEDS: ATORVASTATIN 10 MG TAB PO SCH (21:36)
[2019-08-10] MEDS: SOD FERRIC GLUC COMPLX/SUCROSE 250 MG in NA CHLORIDE 0.9% 250 ML IV SCH (21:37)
[2019-08-11 06:37] LABS: Absolute Lymphocytes (CBC) 0.9 K/uL (0.7-4.9); Basophils % 0.2 % (0-1.3); Hematocrit 24.4 % (39.6-49.0); Lymphocytes % 7.7 % (15.3-44.8); MPV 9.2 fL (7.6-11.3); RBC Red Blood Cell Count 3.52 M/uL (4.33-5.43)
[2019-08-11 06:51] LABS: Phosphorus 3.7 mg/dL (2.5-4.9); Potassium 3.7 mmol/L (3.5-5.1)
[2019-08-11 08:34] LABS: Uric Acid 7.8 mg/dL (3.5-7.2)
[2019-08-11] MEDS ORDERED: FUROSEMIDE 40 MG/4 ML VIAL IV SCH (09:00)
[2019-08-11] MEDS: HYDRALAZINE HCL 25 MG TABLET PO SCH (09:00)
[2019-08-11] MEDS: SPIRONOLACTONE 25 MG TABLET PO SCH (09:28)
[2019-08-11] MEDS: DOXAZOSIN 2 MG TAB PO SCH ×2 (09:28→21:00)
[2019-08-11] MEDS: NIFEDIPINE XL 60 MG TABLET PO SCH (09:28)
[2019-08-11] MEDS: ALLOPURINOL 100 MG TAB PO SCH (09:28)
[2019-08-11] MEDS: CLONIDINE HCL 0.3 MG TAB PO SCH ×3 (09:29→21:00)
[2019-08-11] MEDS: MINOXIDIL 2.5 MG TAB PO SCH ×2 (09:29→21:00)
[2019-08-11] MEDS ORDERED: ACETAMINOPHEN 500 MG TAB PO PRN (12:16)
--- NOTE | 2019-08-11 14:20 | P.PN ---
Subjective Date of Service: 08/11/19 Chief Complaint: HTN urgency/Atrial fibrillation Patient seen and examined at bedside. No family at bedside. Chart reviewed and case discussed with nursing staff. Blood pressures now on the lower end. Early this am, patient was a little confused and agitated, now improved. No complaints this morning Review of Systems 10-point ROS is otherwise unremarkable Physical Examination - Vital Signs Temperature: 97.3 F Blood Pressure: 102/64 Pulse: 74 Respirations: 18 Pulse Ox (%): 99 - Physical Exam General: Alert, In no apparent distress, Oriented x3 HEENT: Atraumatic, PERRLA, EOMI Neck: Supple, JVD not distended Respiratory: Clear to auscultation bilaterally, Normal air movement Cardiovascular: Regular rate/rhythm, Normal S1 S2 Gastrointestinal: Normal bowel sounds, No tenderness Musculoskeletal: No tenderness Integumentary: No rashes Neurological: Normal speech, Normal tone, Normal affect Lymphatics: No axilla or inguinal lymphadenopathy - Studies Laboratory Data (last 24 hrs) 08/11/19 06:14: WBC 11.9 H D, Hgb 8.3 L, Hct 24.4 L, Plt Count 240 08/11/19 06:14: Sodium 141, Potassium 3.7, BUN 67 H, Creatinine 5.56 H* D, Glucose 170 H, Uric Acid 7.8 H, Phosphorus 3.7 08/10/19 20:20: Hgb 8.7 L, Hct 27.0 L D Medications List Reviewed: Yes Assessment And Plan - Current Problems (Diagnosis) (1) Hypertensive urgency Current Visit: Yes Status: Acute (2) Acute on chronic anemia Current Visit: Yes Status: Acute (3) MGUS (monoclonal gammopathy of unknown significance) Current Visit: Yes Status: Acute (4) Diastolic heart failure Current Visit: No Status: Acute Qualifiers: Heart failure chronicity: acute on chronic Qualified Code(s): I50.33 - Acute on chronic diastolic (congestive) heart failure (5) CKD (chronic kidney disease) Onset Date: 11/07/18 Current Visit: No Status: Chronic (6) Essential hypertension Current Visit: No Status: Chronic (7) Type 2 diabetes mellitus Current Visit: No Status: Chronic Qualifiers: Diabetes mellitus extermination supervisor insulin use: with extermination supervisor use Diabetes mellitus complication status: without complication Qualified Code(s): E11.9 - Type 2 diabetes mellitus without complications; Z79.4 - marine oil terminal superintendent (current) use of insulin - Plan -Blood pressures on the lower end. -HTN medications: clonidine, doxazosin, nifedipine. Hydralazine discontinued. -Lasix for IV diuresis -Creatinine worsened today, IVF adjusted by nephrology. -Nephrology consult, Recommendations appreciated -Cardiology consult, recommendations appreciated. -s/p 1 unit PRBC; Hgb with appropriate response. -Hold chemical AC d/t anemia -Protonix for GI prophylaxis. Disposition: Pending symptomatic improvement.
[2019-08-11] MEDS: D5 0.45 NS 1,000 ML IV SCH (15:29)
[2019-08-11] MEDS: ATORVASTATIN 10 MG TAB PO SCH (21:01)
[2019-08-11 21:54] LABS: Urine Appearance CLOUDY; Urine Bilirubin NEGATIVE (NEG); Urine Blood NEGATIVE (NEG); Urine Color YELLOW; Urine Glucose NEGATIVE (NEG); Urine Protein 2+ (NEG); Urine Specific Gravity 1.015 (1.005-1.030); Urine Urobilinogen 0.2 mg/dL (0.2-1.0)
[2019-08-11 22:08] LABS: Urine Microscopic Reflex ORDER UMIC
[2019-08-11 23:10] LABS: Urine Bacteria <20 /HPF (NONE SEEN); Urine Culture Reflex Order REFLEXED; Urine RBC NONE SEEN /HPF (NONE SEEN)
--- NOTE | 2019-08-12 02:02 | PN ---
Date of Progress Note: 08/11/2019 Chief Complaint: Uncontrolled hypertensive crisis, anemia, chronic kidney disease stage 4. History: Patient has multiple medical problems including history of light chain disease and was found to have acute on chronic kidney injury. Renal function has declined over the last 24 hours. Patient received blood transfusion. Patient has history of light chain disease. Patient received Lasix to control edema. Subsequently, he was found to have acute on chronic kidney injury. Blood work showed BUN of 54, creatinine 3.9, calcium 7.9, albumin 2.8. Intact PTH 136. Acute kidney injury is nonoliguric, moderately severe. Patient was treated with Lasix for edema. Edema has improved. Blood work today showed BUN 67. His electrolytes are as follows: Sodium 141, potassium 3.7, chloride 108, CO2 of 23, uric acid 7.8, calcium 7.9, phosphorus 3.7, albumin 3.0. Review of Systems: Denies fever or chills. Physical Examination: Lungs: Clear to auscultation bilaterally. Heart: S1, S2. ABDOMEN: Soft, benign. Extremities: No edema. Impression And Plan: 1. Acute on chronic kidney injury with prerenal azotemia, nonoliguric, acute tubular necrosis. Lasix is on hold. Continue IV fluids for hydration. 2. Hypertension. Continue blood pressure medication. 3. History of gout. Uric acid level is controlled. Continue a low-purine diet. 4. Light chain disease per Oncology. 5. Edema, resolved. Lasix on hold. I spent total 36 min including 25 min to coordinate care plan. SYLVIA/DEONTE Voice ID: [id number] Report ID: [id number] ELAINE
[2019-08-12] MEDS: D5 0.45 NS 1,000 ML IV SCH ×2 (02:20→20:04)
[2019-08-12 05:40] LABS: Phosphorus 4.7 mg/dL (2.5-4.9)
[2019-08-12] MEDS: DOXAZOSIN 2 MG TAB PO SCH ×2 (08:44→20:03)
[2019-08-12] MEDS: NIFEDIPINE XL 60 MG TABLET PO SCH (08:45)
[2019-08-12] MEDS: ALLOPURINOL 100 MG TAB PO SCH (08:45)
[2019-08-12] MEDS: MINOXIDIL 2.5 MG TAB PO SCH (08:46)
[2019-08-12] MEDS: CLONIDINE HCL 0.3 MG TAB PO SCH ×3 (08:46→20:03)
[2019-08-12] MEDS ORDERED: CEFAZOLIN/NS 1gm 1 GM/50 ML BAG IVPB SCH (11:45)
[2019-08-12] MEDS ORDERED: CEFAZOLIN/SWI 1gm 1 GM/10 ML SYR IV SCH (12:00)
--- NOTE | 2019-08-12 12:05 | CON ---
Date of Consultation: 08/12/2019 Reason For Consultation: Patient needs dialysis. History Of Present Illness: The patient is a 78-year-old gentleman with multiple medical problems, w ho was admitted with hypertension during requirement for blood transfusion and he was admitted for me dical management, and he was found to have uremia, which is not improving and actually getting worse, therefore he is going to require dialysis and I was consulted for Tesio catheter placement. He is a wake and alert. Denies any sore throat, runny nose, cough, headaches, or dizziness. No chest pain. No fever or chills. Review of Systems: Otherwise unremarkable. Past Medical History: Significant for diabetes type 2, hypertension, history of prostate cancer, chr onic renal disease with acute onset now, CHF, coronary artery disease. Past Surgical History: Prostatectomy. Allergies: NO ALLERGIES. Social History: He does not smoke or drink. Family History: Noncontributory. Physical Examination: Vital Signs: Reviewed. They are stable. He is not hypertensive anymore. He is afebrile. General: He is awake, alert, and oriented x3. Head and Neck: Cranial nerves 2 through 12 are grossly within normal limits. No neck masses. No JV D. Throat clear. Neck is supple. Chest: Clear. Heart: S1 and S2. Abdomen: Soft, nondistended, nontender. Positive bowel sounds. Extremities: Neurovascularly intact. Neuro: Nonfocal. Laboratory Data: His white count is 11.9, H and H are 8.3 and 24.4, platelets of 240. Chemistry christina ws his BUN and creatinine to be increasing currently at 77 and 6.76, GFR is 10. Assessment: Acute renal failure in a patient with multiple medical problems requiring dialysis. Recommendations: We will proceed with placement of Tesio catheter. Patient understands the risks, b enefits, and alternatives and agrees to procedure. /MODL Voice ID: [id number] Report ID: [id number]
--- NOTE | 2019-08-12 15:55 | PN ---
Date of Progress Note: 08/12/2019 Subjective: Patient was admitted with symptomatic anemia. Patient received transfusion day before . Kidney function started declining significantly in the last 48 hours. Lasix has been disc ontinued. Patient was started on hydration, but kidney function continues to decline. Physical Examination: Vital Signs: Blood pressure 127/74, pulse of 76, afebrile. Chest: Clear to auscultation. Heart: S1, S2. Regular. Abdomen: Soft, nontender. Extremities: Trace edema. Venous stasis bilateral. Laboratory Data: WBC 11.9, H and H 8.3/24.4, platelets 240. Sodium 142, potassium 4, bicarb 24, BUN 77, creatinine 6.7, GFR down to 10, uric acid of 7.8, calcium 7.7, phosphorus 4.7, albumin of 3, cor rected calcium 8.5. Medications: Current medications the patient on, its include atorvastatin, clonidine 0.3 t.i.d., Car dura 2 mg b.i.d., nifedipine 90, IV fluid, allopurinol, minoxidil 0.25 b.i.d. Assessment And Plan: 1.Acute kidney injury on advanced chronic kidney disease. I have long discussion with the patient t hat given the fast progress in his disease, patient is going to need to be initiated on renal replace ment therapy. Patient agreed. We will go ahead and proceed with the surgical evaluation for PermCath . We are going to start the patient on dialysis after placement of the catheter. Patient may be jus t acute, so hopefully it is temporary, but we are going to need a tunneled catheter. 2.Hypertension given the acute kidney injury. I am going to decrease the minoxidil and we will irena tor the patient. We will aim for blood pressure of around 150. 3.Edema has been resolved. Decrease minoxidil and hold Lasix. Continue IV fluid. 4.Anemia/light chain disease, status post transfusion. We will follow up with Hematology. 5.Iron deficiency anemia. Continue IV iron. ELEONORA/DEONTE Voice ID: [id number] Report ID: [id number]
--- NOTE | 2019-08-12 18:08 | P.PN ---
Subjective Date of Service: 08/12/19 Chief Complaint: HTN urgency/Atrial fibrillation Patient seen and examined at bedside. No family at bedside. Chart reviewed and case discussed with nursing staff. Blood pressures now on the lower end. No acute events noted overnight. No complaints this morning Review of Systems 10-point ROS is otherwise unremarkable Physical Examination - Vital Signs Temperature: 98.2 F Blood Pressure: 132/50 Pulse: 69 Respirations: 18 Pulse Ox (%): 98 - Physical Exam General: Alert, In no apparent distress HEENT: Atraumatic, PERRLA, EOMI Neck: Supple, JVD not distended Respiratory: Clear to auscultation bilaterally, Normal air movement Cardiovascular: Regular rate/rhythm, Normal S1 S2 Gastrointestinal: Normal bowel sounds, No tenderness Musculoskeletal: No tenderness Integumentary: No rashes Neurological: Normal speech, Normal tone, Normal affect Lymphatics: No axilla or inguinal lymphadenopathy - Studies Laboratory Data (last 24 hrs) 08/12/19 05:13: Sodium 142, Potassium 4.0, BUN 77 H, Creatinine 6.76 H* D, Glucose 169 H, Phosphorus 4.7 Medications List Reviewed: Yes Assessment And Plan - Current Problems (Diagnosis) (1) Hypertensive urgency Current Visit: Yes Status: Acute (2) Acute on chronic anemia Current Visit: Yes Status: Acute (3) MGUS (monoclonal gammopathy of unknown significance) Current Visit: Yes Status: Acute (4) Diastolic heart failure Current Visit: No Status: Acute Qualifiers: Heart failure chronicity: acute on chronic Qualified Code(s): I50.33 - Acute on chronic diastolic (congestive) heart failure (5) CKD (chronic kidney disease) Onset Date: 11/07/18 Current Visit: No Status: Chronic (6) Essential hypertension Current Visit: No Status: Chronic (7) Type 2 diabetes mellitus Current Visit: No Status: Chronic Qualifiers: Diabetes mellitus fci insulin use: with extermination inspector use Diabetes mellitus complication status: without complication Qualified Code(s): E11.9 - Type 2 diabetes mellitus without complications; Z79.4 - termite exterminator helper (current) use of insulin - Plan -Blood pressures on the lower end. -HTN medications: clonidine, doxazosin, nifedipine. Hydralazine discontinued. -Creatinine worsened today, Nephrology on board. Recommends general surgery consult for tunneled catheter placement. Dr. Box consulted. -Nephrology consult, Recommendations appreciated -Cardiology consult, recommendations appreciated. -s/p 1 unit PRBC; Hgb with appropriate response. -Hold chemical AC d/t anemia -Protonix for GI prophylaxis. Disposition: Pending symptomatic improvement.
[2019-08-12] MEDS: ATORVASTATIN 10 MG TAB PO SCH (20:03)
[2019-08-12] MEDS: ALPRAZOLAM 0.25 MG TABLET PO PRN (20:05)
[2019-08-12] MEDS ORDERED: GLUCAGON 1 MG/VIAL IM PRN (23:13)
[2019-08-12] MEDS ORDERED: D50W 25 GM/50 ML SYRINGE IV PRN (23:13)
[2019-08-13] MEDS: D5 0.45 NS 1,000 ML IV SCH (04:48)
[2019-08-13 06:23] LABS: Phosphorus 5.4 mg/dL (2.5-4.9); Potassium 4.2 mmol/L (3.5-5.1)
[2019-08-13] MEDS: INSULIN -REGULAR HUMAN 50 UNIT/0.5 ML ML SQ SCH ×4 (07:30→21:00)
[2019-08-13] MEDS ORDERED: CEFAZOLIN/SWI 1gm 1 GM/10 ML SYR ONE (07:48)
[2019-08-13] MEDS ORDERED: NA CHLORIDE 0.9% 500 ML ONE (08:04)
[2019-08-13] MEDS ORDERED: NS 0.9% VIAL 10 ML ONE (08:14)
[2019-08-13] MEDS ORDERED: HEPARIN 5000 UNIT/ML 1 ML VIAL ONE (08:15)
[2019-08-13] MEDS ORDERED: LIDOCAINE 1% 20 ML MDV ONE (08:16)
[2019-08-13] MEDS ORDERED: NA CHLORIDE 0.9% 100 ML IV ONE (08:16)
[2019-08-13] MEDS: NIFEDIPINE XL 60 MG TABLET PO SCH (09:00)
[2019-08-13] MEDS: CLONIDINE HCL 0.3 MG TAB PO SCH ×3 (09:00→20:41)
[2019-08-13] MEDS: DOXAZOSIN 2 MG TAB PO SCH ×2 (09:00→20:41)
[2019-08-13] MEDS: ALLOPURINOL 100 MG TAB PO SCH (09:00)
[2019-08-13] MEDS ORDERED: MINOXIDIL 2.5 MG TAB PO SCH (09:00)
[2019-08-13] MEDS ORDERED: ONDANSETRON 4 MG/2 ML VIAL ONE (09:05)
[2019-08-13] MEDS ORDERED: PROPOFOL 200 MG/20 ML VIAL IV ONE (09:05)
[2019-08-13] MEDS ORDERED: FENTANYL CITR 100 MCG/2 ML ONE (09:05)
[2019-08-13] MEDS ORDERED: LIDOCAINE 2% MPF 5 ML VIAL ONE (09:05)
[2019-08-13] MEDS ORDERED: MIDAZOLAM HCL 2 MG/2 ML INJ ONE (09:05)
[2019-08-13] MEDS ORDERED: ROCURONIUM 50 MG/5 ML VIAL IV ONE (09:07)
--- NOTE | 2019-08-13 09:56 | P.OP ---
Preoperative diagnosis: ARF Postoperative diagnosis: same Primary procedure: RIJ Tessonny Secondary procedure: Fluoroscopy Anesthesia: General Estimated blood loss: min Specimen: none Findings: Normal Anatomy Complications: None Transferred to: Recovery Room Condition: Good
--- NOTE | 2019-08-13 10:43 | RAD REPORT ---
EXAM DESCRIPTION: RAD - Fluoroscopy <1 Hour - 08/13/2019 10:34 am CLINICAL HISTORY: Venous catheter insertion. TESSIO PLACEMENT COMPARISON: No comparisons FINDINGS: Fluoroscopic imaging is submitted from placement of a venous catheter. Details of the pro cedure not available. Fluoroscopy time: 0.9 minutes
--- NOTE | 2019-08-13 11:03 | RAD REPORT ---
EXAM DESCRIPTION: RAD - Chest Single View - 08/13/2019 10:55 am CLINICAL HISTORY: Device placement central venous line placement IMPRESSION: Central venous line with its tip in the mid superior vena cava . No pneumothorax
[2019-08-13 11:42] LABS: Basophils % 0.6 % (0-1.3); Hematocrit 22.8 % (39.6-49.0); Lymphocytes % 9.1 % (15.3-44.8); MPV 8.9 fL (7.6-11.3); RBC Red Blood Cell Count 3.23 M/uL (4.33-5.43)
[2019-08-13] MEDS: TRAMADOL HCL 50 MG TAB PO PRN (11:48)
--- NOTE | 2019-08-13 13:42 | RAD REPORT ---
EXAM DESCRIPTION: US RENAL ULTRASOUND COMPLETE CLINICAL HISTORY: Abnormal renal function, elevated creatinine. COMPARISON: Renal ultrasound July; Ct abdomen and pelvis November 06, 2018; TECHNIQUE: Renal ultrasound. FINDINGS: Numerous variably sized bilateral renal cysts are present. Pattern matches the prior imaging study. No cyst hemorrhage or change to the cystic pattern is seen. No hydronephrosis has developed in either kidney. Cortical thickness and echogenicity pattern are also stable. IMPRESSION: 1. No hydronephrosis has developed in either kidney. 2. No significant change from prior imaging.
[2019-08-13] MEDS ORDERED: NA CHLORIDE 0.9% 1,000 ML IV PRN (14:24)
[2019-08-13] MEDS ORDERED: ALBUMIN HUMAN 25% 50 ML IV SCH (15:00)
--- NOTE | 2019-08-13 17:22 | P.PN ---
Subjective Date of Service: 08/13/19 Chief Complaint: HTN urgency/Atrial fibrillation Patient seen and examined at bedside. No family at bedside. Chart reviewed and case discussed with nursing staff. No acute events noted overnight. No complaints this morning. Pending tunneled catheter placement this am with Dr. Box Review of Systems 10-point ROS is otherwise unremarkable Physical Examination - Vital Signs Temperature: 98.1 F Blood Pressure: 134/52 Pulse: 65 Respirations: 18 Pulse Ox (%): 94 - Physical Exam General: Alert, In no apparent distress HEENT: Atraumatic, PERRLA, EOMI Neck: Supple, JVD not distended Respiratory: Clear to auscultation bilaterally, Normal air movement Cardiovascular: Regular rate/rhythm, Normal S1 S2 Gastrointestinal: Normal bowel sounds, No tenderness Musculoskeletal: No tenderness Integumentary: No rashes Neurological: Normal speech, Normal tone, Normal affect Lymphatics: No axilla or inguinal lymphadenopathy - Studies Laboratory Data (last 24 hrs) 08/13/19 11:30: WBC 11.0 H, Hgb 7.4 L*, Hct 22.8 L, Plt Count 226 08/13/19 05:37: Sodium 139, Potassium 4.2, BUN 87 H, Creatinine 7.46 H*, Glucose 154 H, Phosphorus 5.4 H Medications List Reviewed: Yes Assessment And Plan - Current Problems (Diagnosis) (1) Hypertensive urgency Current Visit: Yes Status: Acute (2) Acute on chronic anemia Current Visit: Yes Status: Acute (3) MGUS (monoclonal gammopathy of unknown significance) Current Visit: Yes Status: Acute (4) Diastolic heart failure Current Visit: No Status: Acute Qualifiers: Heart failure chronicity: acute on chronic Qualified Code(s): I50.33 - Acute on chronic diastolic (congestive) heart failure (5) CKD (chronic kidney disease) Onset Date: 11/07/18 Current Visit: No Status: Chronic (6) Essential hypertension Current Visit: No Status: Chronic (7) Type 2 diabetes mellitus Current Visit: No Status: Chronic Qualifiers: Diabetes mellitus termination clerk insulin use: with termination clerk use Diabetes mellitus complication status: without complication Qualified Code(s): E11.9 - Type 2 diabetes mellitus without complications; Z79.4 - detention (current) use of insulin - Plan -Blood pressures on the lower end. -HTN medications: clonidine, doxazosin, nifedipine. Hydralazine discontinued. -Creatinine worsened today, Nephrology on board. Recommends general surgery consult for tunneled catheter placement. Dr. Box consulted. Pending catheter placement today. Dialysis per nephrology. -Nephrology consult, Recommendations appreciated -Cardiology consult, recommendations appreciated. -s/p 1 unit PRBC; Hgb with appropriate response. -Hold chemical AC d/t anemia -Protonix for GI prophylaxis. Disposition: Pending symptomatic improvement.
[2019-08-13 18:30] LABS: Rheumatoid Factor NEG (NEG)
[2019-08-13 18:39] LABS: Anisocytosis 1+; Blood Morphology Comment NOTED (NOT SEEN); Hypochromasia 1+; Platelet Estimate ADEQ; Poikilocytosis 1+; Polychromasia 1+; Urine White Blood Cell Casts OK
[2019-08-13 18:40] LABS: Ovalocytes SLIGHT; Teardrop Cell FEW
--- NOTE | 2019-08-13 20:30 | OP ---
Date of Procedure: 08/13/2019 Surgeon: Gregorio Box MD Preoperative Diagnosis: Acute renal failure. Postoperative Diagnosis: Acute renal failure. Procedure: Placement of right IJ Tesio catheter. Interpretation of intraoperative fluoroscopy. Estimated Blood Loss: Minimal. Specimen: None. Findings: Normal anatomy. Anesthesia: General. Complications: None. Disposition: Patient tolerated the procedure in stable condition, taken to Recovery in good general condition. Procedure In Detail: The patient was brought to the OR and placed in supine position. General anest hesia was begun. Patient was prepped and draped in usual sterile fashion. Lidocaine 1% infiltrated locally. An 18-gauge needle was used to access the right IJ vein. Guidewire was passed. Position w as confirmed with fluoroscopy. Counterincision made on the right anterior chest. Tunneling device w as used to tunnel the catheter between the 2 wounds. Seldinger technique was used. Vein dilated. T ip of the catheter was placed in the SVC under fluoroscopy. Catheter flushed with heparin and packed with heparin with good blood flow. 3-0 chromic used to approximate the subcutaneous tissue and clos e the skin and then 3-0 nylon used to secure the tube to the chest wall. Sterile dressing was applie d. Patient was awakened and taken to Recovery in good general condition. Chest x-ray has been ordered. MANJEET/DEONTE Voice ID: [id number] Report ID: [id number]
[2019-08-13] MEDS: SOD FERRIC GLUC COMPLX/SUCROSE 250 MG in NA CHLORIDE 0.9% 250 ML IV SCH (20:41)
[2019-08-13] MEDS: ATORVASTATIN 10 MG TAB PO SCH (20:41)
--- NOTE | 2019-08-13 22:57 | PN ---
Date of Progress Note: 08/13/2019 Subjective: Patient is status post PermCath placement today. Patient still have good urine output, but is still feeling weak. Physical Examination: Vital Signs: Blood pressure 134/52, pulse of 65, afebrile. Patient had good urine output of 300. Chest: Clear to auscultation. Heart: S1, S2. Regular. Abdomen: Soft, nontender. Extremities: Plus edema. Laboratory Data: WBC 11, H and H 7.4/22.8, platelet 226. Sodium 139, potassium 4.2, bicarb 23, BUN 87, creatinine 7.4, GFR of 9, calcium 7.3, phosphorus 5.4, albumin 3. Hepatitis panel still pending. PTH of 138. Current Medications: The patient on include: 1.Minoxidil 2.5 daily. 2.IV iron. 3.Atorvastatin. 4.Clonidine 0.3 t.i.d. 5.Cardura 2 mg b.i.d. 6.Nifedipine 90. 7.D5 half at 75 per hour. Assessment And Plan: 1.Acute kidney injury secondary to urgent hypertension and advanced chronic kidney disease, status p ost PermCath placement. We will dialyze the patient currently. We will discontinue IV fluid and dis continue minoxidil and we will monitor blood pressure after dialysis today. 2.Iron-deficiency anemia. Continue IV iron. 3.Secondary hyperparathyroidism. No need for binder. 4.Hypertension with urgent hypertension as above. Continue Cardura, nifedipine, and holding the hyd ralazine and IV fluid. Patient waiting for placement as outpatient. We will dialyze the patient in next 3 days. LISSA Voice ID: [id number] Report ID: [id number]
[2019-08-14 05:32] LABS: Albumin 2.8 g/dL (3.4-5.0); Phosphorus 4.7 mg/dL (2.5-4.9)
[2019-08-14] MEDS: INSULIN -REGULAR HUMAN 50 UNIT/0.5 ML ML SQ SCH ×4 (07:30→21:00)
[2019-08-14] MEDS: ALLOPURINOL 100 MG TAB PO SCH (09:05)
[2019-08-14] MEDS: NIFEDIPINE XL 60 MG TABLET PO SCH (09:05)
[2019-08-14] MEDS: DOXAZOSIN 2 MG TAB PO SCH ×2 (09:05→22:03)
[2019-08-14] MEDS: CLONIDINE HCL 0.3 MG TAB PO SCH ×3 (09:06→22:03)
--- NOTE | 2019-08-14 12:16 | P.PN ---
Subjective Date of Service: 08/14/19 Chief Complaint: HTN urgency/Atrial fibrillation Subjective: No C/O voiced, Tolerating diet, Improving Patient seen and examined at bedside. No family at bedside. Chart reviewed and case discussed with nursing staff. No acute events noted overnight. No complaints this morning. s/p dialysis session yesterday, pending dialysis session today. Review of Systems 10-point ROS is otherwise unremarkable Physical Examination - Vital Signs Temperature: 97.6 F Blood Pressure: 155/67 Pulse: 71 Respirations: 18 Pulse Ox (%): 97 - Physical Exam General: Alert, In no apparent distress HEENT: Atraumatic, PERRLA, EOMI Neck: Supple, JVD not distended Respiratory: Clear to auscultation bilaterally, Normal air movement Cardiovascular: Regular rate/rhythm, Normal S1 S2 Gastrointestinal: Normal bowel sounds, No tenderness Musculoskeletal: No tenderness Integumentary: No rashes Neurological: Normal speech, Normal tone, Normal affect Lymphatics: No axilla or inguinal lymphadenopathy - Studies Laboratory Data (last 24 hrs) 08/14/19 04:10: Sodium 140, Potassium 4.0, BUN 50 H D, Creatinine 5.23 H* D, Glucose 109 H, Phosphorus 4.7 08/13/19 18:23: Hgb 7.7 L*, Hct 23.0 L 08/13/19 11:30: WBC 11.0 H, Hgb 7.4 L*, Hct 22.8 L, Plt Count 226 Microbiology Data (last 24 hrs): 08/11/19 20:49 Clean Catch Urine [place] Count - Final BETWEEN 10,000 & 100,000 CFU/ML 08/11/19 20:49 Clean Catch Urine - Final MIXED JOSE ENRIQUE. Medications List Reviewed: Yes Assessment And Plan - Current Problems (Diagnosis) (1) Hypertensive urgency Current Visit: Yes Status: Acute (2) Acute on chronic anemia Current Visit: Yes Status: Acute (3) MGUS (monoclonal gammopathy of unknown significance) Current Visit: Yes Status: Acute (4) Diastolic heart failure Current Visit: No Status: Acute Qualifiers: Heart failure chronicity: acute on chronic Qualified Code(s): I50.33 - Acute on chronic diastolic (congestive) heart failure (5) CKD (chronic kidney disease) Onset Date: 11/07/18 Current Visit: No Status: Chronic (6) Essential hypertension Current Visit: No Status: Chronic (7) Type 2 diabetes mellitus Current Visit: No Status: Chronic Qualifiers: Diabetes mellitus long-term insulin use: with long-term use Diabetes mellitus complication status: without complication Qualified Code(s): E11.9 - Type 2 diabetes mellitus without complications; Z79.4 - intermediate (current) use of insulin - Plan -Blood pressures on the lower end. -HTN medications: clonidine, doxazosin, nifedipine. Hydralazine discontinued. -Creatinine worsened today, Nephrology on board. Recommends general surgery consult for tunneled catheter placement. Dr. Box consulted, s/p catheter placement. Dialysis per nephrology. -Nephrology consult, Recommendations appreciated -Cardiology consult, recommendations appreciated. -s/p 1 unit PRBC; Hgb with appropriate response. -Hold chemical AC d/t anemia -Protonix for GI prophylaxis. Disposition: Pending symptomatic improvement and outpatient dialysis set up .
[2019-08-14] MEDS ORDERED: NA CHLORIDE 0.9% 1,000 ML IV PRN (14:36)
[2019-08-14] MEDS: ATORVASTATIN 10 MG TAB PO SCH (22:03)
[2019-08-14] MEDS: TRAMADOL HCL 50 MG TAB PO PRN (22:04)
[2019-08-15] MEDS: INSULIN -REGULAR HUMAN 50 UNIT/0.5 ML ML SQ SCH ×4 (07:30→21:00)
[2019-08-15] MEDS: ALLOPURINOL 100 MG TAB PO SCH (09:15)
[2019-08-15] MEDS: DOXAZOSIN 2 MG TAB PO SCH ×2 (09:15→20:56)
[2019-08-15] MEDS: CLONIDINE HCL 0.3 MG TAB PO SCH ×3 (09:18→20:57)
[2019-08-15] MEDS: NIFEDIPINE XL 90 MG TABLET PO SCH (09:18)
--- NOTE | 2019-08-15 10:08 | P.PN ---
Subjective Date of Service: 08/15/19 Chief Complaint: HTN urgency/Atrial fibrillation Subjective: No C/O voiced, Improving Patient seen and examined at bedside. No family at bedside. Chart reviewed and case discussed with nursing staff. No acute events noted overnight. No complaints this morning. s/p dialysis session yesterday, pending dialysis session today. Review of Systems 10-point ROS is otherwise unremarkable Physical Examination - Vital Signs Temperature: 96.0 F Blood Pressure: 137/65 Pulse: 65 Respirations: 18 Pulse Ox (%): 96 - Physical Exam General: Alert, In no apparent distress, Oriented x3 HEENT: Atraumatic, PERRLA, EOMI Neck: Supple, JVD not distended Respiratory: Clear to auscultation bilaterally, Normal air movement Cardiovascular: Regular rate/rhythm, Normal S1 S2 Gastrointestinal: Normal bowel sounds, No tenderness Musculoskeletal: No tenderness Integumentary: No rashes Neurological: Normal speech, Normal tone, Normal affect Lymphatics: No axilla or inguinal lymphadenopathy - Studies Microbiology Data (last 24 hrs): 08/11/19 20:49 Clean Catch Urine [place] Count - Final BETWEEN 10,000 & 100,000 CFU/ML 08/11/19 20:49 Clean Catch Urine - Final MIXED JOSE ENRIQUE. Medications List Reviewed: Yes Assessment And Plan - Current Problems (Diagnosis) (1) Hypertensive urgency Current Visit: Yes Status: Acute (2) Acute on chronic anemia Current Visit: Yes Status: Acute (3) MGUS (monoclonal gammopathy of unknown significance) Current Visit: Yes Status: Acute (4) Diastolic heart failure Current Visit: No Status: Acute (5) CKD (chronic kidney disease) Onset Date: 11/07/18 Current Visit: No Status: Chronic (6) Essential hypertension Current Visit: No Status: Chronic (7) Type 2 diabetes mellitus Current Visit: No Status: Chronic - Plan -Blood pressures on the lower end. -HTN medications: clonidine, doxazosin, nifedipine. Hydralazine discontinued. -Creatinine worsened today, Nephrology on board. Recommends general surgery consult for tunneled catheter placement. Dr. Box consulted, s/p catheter placement. Dialysis per nephrology. -Nephrology consult, Recommendations appreciated -Cardiology consult, recommendations appreciated. -s/p 1 unit PRBC; Hgb with appropriate response. -Hold chemical AC d/t anemia -Protonix for GI prophylaxis. Disposition: Pending symptomatic improvement and outpatient dialysis set up .
[2019-08-15 10:13] LABS: Albumin 3.2 g/dL (3.4-5.0); Phosphorus 4.3 mg/dL (2.5-4.9); Potassium 3.8 mmol/L (3.5-5.1)
[2019-08-15 10:38] LABS: Hematocrit 25.2 % (39.6-49.0); Lymphocytes % 10.8 % (15.3-44.8); MPV 8.9 fL (7.6-11.3)
--- NOTE | 2019-08-15 12:51 | P.PN ---
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 Today psychiatric np new complaints VS stable scheduled for HD today F/U serology W/U pending Op dialysis arrangement Physical Examination - Vital Signs Temperature: 96.0 F Blood Pressure: 137/65 Pulse: 65 Respirations: 18 Pulse Ox (%): 96 - Physical Exam General: In no apparent distress, Oriented x3 HEENT: Atraumatic Neck: Supple, Without JVD or thyroid abnormality Respiratory: Clear to auscultation bilaterally, Normal air movement Cardiovascular: Regular rate/rhythm, No gallops, No rubs, No murmurs, Edema Gastrointestinal: Normal bowel sounds, Soft and benign Musculoskeletal: No swelling Integumentary: No rashes - Studies Laboratory Data (last 24 hrs) 08/15/19 10:26: WBC 9.4 D, Hgb 8.3 L, Hct 25.2 L, Plt Count 230 08/15/19 08:55: Sodium 141, Potassium 3.8, BUN 41 H, Creatinine 4.73 H, Glucose 162 H, Phosphorus 4.3 Microbiology Data (last 24 hrs): 08/11/19 20:49 Clean Catch Urine [place] Count - Final BETWEEN 10,000 & 100,000 CFU/ML 08/11/19 20:49 Clean Catch Urine - Final MIXED JOSE ENRIQUE. 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
--- NOTE | 2019-08-15 12:53 | P.PN ---
Subjective Date of Service: 08/15/19 Chief Complaint: HTN urgency/Atrial fibrillation Subjective: No C/O voiced Patient seen and examined at bedside. No family at bedside. Chart reviewed and case discussed with nursing staff. No acute events noted overnight. No complaints this morning. Review of Systems 10-point ROS is otherwise unremarkable Physical Examination - Vital Signs Temperature: 96.0 F Blood Pressure: 137/65 Pulse: 65 Respirations: 18 Pulse Ox (%): 96 - Physical Exam General: Alert, In no apparent distress HEENT: Atraumatic, PERRLA, EOMI Neck: Supple, JVD not distended Respiratory: Clear to auscultation bilaterally, Normal air movement Cardiovascular: Regular rate/rhythm, Normal S1 S2 Gastrointestinal: Normal bowel sounds, No tenderness Musculoskeletal: No tenderness Integumentary: No rashes Neurological: Normal speech, Normal tone, Normal affect Lymphatics: No axilla or inguinal lymphadenopathy - Studies Laboratory Data (last 24 hrs) 08/15/19 10:26: WBC 9.4 D, Hgb 8.3 L, Hct 25.2 L, Plt Count 230 08/15/19 08:55: Sodium 141, Potassium 3.8, BUN 41 H, Creatinine 4.73 H, Glucose 162 H, Phosphorus 4.3 Microbiology Data (last 24 hrs): 08/11/19 20:49 Clean Catch Urine [place] Count - Final BETWEEN 10,000 & 100,000 CFU/ML 08/11/19 20:49 Clean Catch Urine - Final MIXED JOSE ENRIQUE. Medications List Reviewed: Yes Assessment And Plan - Current Problems (Diagnosis) (1) Hypertensive urgency Current Visit: Yes Status: Acute (2) Acute on chronic anemia Current Visit: Yes Status: Acute (3) MGUS (monoclonal gammopathy of unknown significance) Current Visit: Yes Status: Acute (4) Diastolic heart failure Current Visit: No Status: Acute (5) CKD (chronic kidney disease) Onset Date: 11/07/18 Current Visit: No Status: Chronic (6) Essential hypertension Current Visit: No Status: Chronic (7) Type 2 diabetes mellitus Current Visit: No Status: Chronic - Plan -Blood pressures on the lower end. -HTN medications: clonidine, doxazosin, nifedipine. Hydralazine discontinued. -Creatinine worsened today, Nephrology on board. Recommends general surgery consult for tunneled catheter placement. Dr. Box consulted, s/p catheter placement. Dialysis per nephrology. -Nephrology consult, Recommendations appreciated -Cardiology consult, recommendations appreciated. -s/p 1 unit PRBC; Hgb with appropriate response. -Hold chemical AC d/t anemia -Protonix for GI prophylaxis. Disposition: Pending symptomatic improvement and outpatient dialysis set up .
--- NOTE | 2019-08-15 19:03 | PN ---
Date of Progress Note: 08/14/2019 Subjective: The patient was admitted with urgent hypertension, kidney function deteriorated. The julianne sarah was started on dialysis, started to have first session of dialysis, managed to remove 1400. Physical Examination: Vital Signs: Blood pressure 155/67, pulse of 71, afebrile. The patient still has good urine output. Chest: Clear to auscultation. Heart: S1, S2. Regular. Abdomen: Soft nontender. Extremities: Venous stasis plus edema. Laboratory Data: H and H 7.7/23. Sodium 140, potassium 4, bicarb 26, BUN 50, creatinine 5.2, calciu m 7.5, phosphorus 4.7, albumin 2.8, corrected calcium 8.5. Current Medications: The patient on, its include: 1.IV iron. 2.Atorvastatin. 3.Clonidine 0.3 t.i.d. 4.Cardura. 5.Nifedipine 90. 6.Allopurinol. 7.Tramadol. Assessment And Plan: 1.Acute kidney injury on advanced chronic kidney disease, nonoliguric. I am going to continue dialy sis for the patient. We will dialyze the patient again tomorrow, then the patient is going to be Sun, Sunday, Sunday. 2.Hypertension with urgent hypertension, currently blood pressure better controlled. Continue curre nt regimen. 3.Iron-deficiency anemia. Continue IV iron. 4.Edema secondary to renal failure, resolved. Patient is waiting for a chair time for the dialysis. LISSA Voice ID: [id number] Report ID: [id number]
[2019-08-15] MEDS: ATORVASTATIN 10 MG TAB PO SCH (20:57)
[2019-08-15 21:40] LABS: Hepatitis C Virus RNA (PCR)log <1.18 log IU/mL
[2019-08-16 05:09] LABS: Phosphorus 4.1 mg/dL (2.5-4.9); Potassium 3.8 mmol/L (3.5-5.1)
[2019-08-16] MEDS: INSULIN -REGULAR HUMAN 50 UNIT/0.5 ML ML SQ SCH ×4 (07:30→21:00)
[2019-08-16] MEDS: DOXAZOSIN 2 MG TAB PO SCH ×2 (09:00→21:00)
[2019-08-16] MEDS: ALLOPURINOL 100 MG TAB PO SCH (09:01)
[2019-08-16] MEDS: CLONIDINE HCL 0.3 MG TAB PO SCH ×3 (09:01→21:00)
[2019-08-16] MEDS: NIFEDIPINE XL 90 MG TABLET PO SCH (09:01)
--- NOTE | 2019-08-16 12:06 | P.PN ---
Subjective Date of Service: 08/16/19 Chief Complaint: HTN urgency/Atrial fibrillation Subjective: No new changes, No C/O voiced, Tolerating diet Patient seen and examined at bedside. No family at bedside. Chart reviewed and case discussed with nursing staff. No acute events noted overnight. No complaints this morning. Review of Systems 10-point ROS is otherwise unremarkable Physical Examination - Vital Signs Temperature: 98.6 F Blood Pressure: 149/67 Pulse: 56 Respirations: 16 Pulse Ox (%): 99 - Physical Exam General: Alert, In no apparent distress HEENT: Atraumatic, PERRLA, EOMI Neck: Supple, JVD not distended Respiratory: Clear to auscultation bilaterally, Normal air movement Cardiovascular: Regular rate/rhythm, Normal S1 S2 Gastrointestinal: Normal bowel sounds, No tenderness Musculoskeletal: No tenderness Integumentary: No rashes Neurological: Normal speech, Normal tone, Normal affect Lymphatics: No axilla or inguinal lymphadenopathy - Studies Laboratory Data (last 24 hrs) 08/16/19 04:28: Sodium 141, Potassium 3.8, BUN 34 H, Creatinine 4.06 H, Glucose 132 H, Phosphorus 4.1 Medications List Reviewed: Yes Assessment And Plan - Current Problems (Diagnosis) (1) Hypertensive urgency Current Visit: Yes Status: Acute (2) Acute on chronic anemia Current Visit: Yes Status: Acute (3) MGUS (monoclonal gammopathy of unknown significance) Current Visit: Yes Status: Acute (4) Diastolic heart failure Current Visit: No Status: Acute Qualifiers: Heart failure chronicity: acute on chronic Qualified Code(s): I50.33 - Acute on chronic diastolic (congestive) heart failure (5) CKD (chronic kidney disease) Onset Date: 11/07/18 Current Visit: No Status: Chronic (6) Essential hypertension Current Visit: No Status: Chronic (7) Type 2 diabetes mellitus Current Visit: No Status: Chronic Qualifiers: Diabetes mellitus adjunct faculty for medical terminology insulin use: with custodial use Diabetes mellitus complication status: without complication Qualified Code(s): E11.9 - Type 2 diabetes mellitus without complications; Z79.4 - USP (current) use of insulin - Plan -Blood pressures on the lower end. -HTN medications: clonidine, doxazosin, nifedipine. Hydralazine discontinued. -Creatinine worsened today, Nephrology on board. Recommends general surgery consult for tunneled catheter placement. Dr. Box consulted, s/p catheter placement. Dialysis per nephrology. -Nephrology consult, Recommendations appreciated -Cardiology consult, recommendations appreciated. -s/p 1 unit PRBC; Hgb with appropriate response. -Hold chemical AC d/t anemia -Protonix for GI prophylaxis. Disposition: Pending symptomatic improvement and outpatient dialysis set up .
--- NOTE | 2019-08-16 13:07 | P.PN ---
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 VS stable scheduled for HD Sunday F/U serology W/U will start on Epogen pending Op dialysis arrangement Physical Examination - Vital Signs Temperature: 98.6 F Blood Pressure: 158/62 Pulse: 57 Respirations: 16 Pulse Ox (%): 99 - Physical Exam General: In no apparent distress, Oriented x3 HEENT: Atraumatic Neck: Supple, Without JVD or thyroid abnormality Respiratory: Clear to auscultation bilaterally, Normal air movement Cardiovascular: Normal S1 S2, No gallops, No rubs, No murmurs, Other (mild ), Edema Gastrointestinal: Normal bowel sounds, Soft and benign - Studies Laboratory Data (last 24 hrs) 08/16/19 04:28: Sodium 141, Potassium 3.8, BUN 34 H, Creatinine 4.06 H, Glucose 132 H, Phosphorus 4.1 Medications List Reviewed: Yes Assessment And Plan - Current Problems (Diagnosis) (1) Diastolic heart failure Current Visit: No Status: Acute Qualifiers: Heart failure chronicity: acute on chronic Qualified Code(s): I50.33 - Acute on chronic diastolic (congestive) heart failure (2) CKD (chronic kidney disease) Onset Date: 11/07/18 Current Visit: No Status: Chronic (3) Essential hypertension Current Visit: No Status: Chronic - Plan 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
[2019-08-16] MEDS: ATORVASTATIN 10 MG TAB PO SCH (21:01)
[2019-08-16] MEDS: SOD FERRIC GLUC COMPLX/SUCROSE 250 MG in NA CHLORIDE 0.9% 250 ML IV SCH (21:01)
[2019-08-17 06:10] LABS: Albumin 2.9 g/dL (3.4-5.0); Phosphorus 5.1 mg/dL (2.5-4.9); Potassium 3.8 mmol/L (3.5-5.1)
[2019-08-17] MEDS: INSULIN -REGULAR HUMAN 50 UNIT/0.5 ML ML SQ SCH ×4 (07:30→20:57)
[2019-08-17] MEDS: CLONIDINE HCL 0.3 MG TAB PO SCH ×3 (08:15→20:57)
[2019-08-17] MEDS: NIFEDIPINE XL 90 MG TABLET PO SCH (08:15)
[2019-08-17] MEDS: DOXAZOSIN 2 MG TAB PO SCH ×2 (08:16→20:56)
[2019-08-17] MEDS: ALLOPURINOL 100 MG TAB PO SCH (08:16)
--- NOTE | 2019-08-17 11:40 | P.PN ---
Subjective Date of Service: 08/17/19 Chief Complaint: HTN urgency/Atrial fibrillation Pt with CKD and light chain disease, was scheduled for OP blood transfusion, found to have HTN emergency course complicated by progression of CKD to ESRD Today no new complaints VS stable scheduled for HD tomorrow F/U serology W/U pending Op dialysis arrangement Physical Examination - Vital Signs Temperature: 98.4 F Blood Pressure: 144/61 Pulse: 55 Respirations: 16 Pulse Ox (%): 100 - Physical Exam General: In no apparent distress, Oriented x3 HEENT: Atraumatic Neck: Supple, Without JVD or thyroid abnormality Respiratory: Clear to auscultation bilaterally, Normal air movement Cardiovascular: Regular rate/rhythm, Normal S1 S2, No gallops, No rubs, No murmurs, Edema (trace ) Gastrointestinal: Normal bowel sounds, Soft and benign, Non-distended, No ascites Musculoskeletal: No clubbing, Swelling - Studies Laboratory Data (last 24 hrs) 08/17/19 05:38: Sodium 141, Potassium 3.8, BUN 47 H, Creatinine 4.81 H, Glucose 133 H, Phosphorus 5.1 H Medications List Reviewed: Yes Assessment And Plan - Current Problems (Diagnosis) (1) Diastolic heart failure Current Visit: No Status: Acute Qualifiers: Heart failure chronicity: acute on chronic Qualified Code(s): I50.33 - Acute on chronic diastolic (congestive) heart failure (2) CKD (chronic kidney disease) Onset Date: 11/07/18 Current Visit: No Status: Chronic (3) Essential hypertension Current Visit: No Status: Chronic - Plan 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
--- NOTE | 2019-08-17 14:04 | P.PN ---
Subjective Date of Service: 08/17/19 Chief Complaint: HTN urgency/Atrial fibrillation Subjective: No C/O voiced Patient seen and examined at bedside. No family at bedside. Chart reviewed and case discussed with nursing staff. No acute events noted overnight. No complaints this morning. Review of Systems 10-point ROS is otherwise unremarkable Physical Examination - Vital Signs Temperature: 99.1 F Blood Pressure: 156/62 Pulse: 59 Respirations: 18 Pulse Ox (%): 99 - Physical Exam General: Alert, In no apparent distress, Oriented x3 HEENT: Atraumatic, PERRLA, EOMI Neck: Supple, JVD not distended Respiratory: Clear to auscultation bilaterally, Normal air movement Cardiovascular: Regular rate/rhythm, Normal S1 S2 Gastrointestinal: Normal bowel sounds, No tenderness Musculoskeletal: No tenderness Integumentary: No rashes Neurological: Normal speech, Normal tone, Normal affect Lymphatics: No axilla or inguinal lymphadenopathy - Studies Laboratory Data (last 24 hrs) 08/17/19 05:38: Sodium 141, Potassium 3.8, BUN 47 H, Creatinine 4.81 H, Glucose 133 H, Phosphorus 5.1 H Medications List Reviewed: Yes Assessment And Plan - Current Problems (Diagnosis) (1) Hypertensive urgency Current Visit: Yes Status: Acute (2) Acute on chronic anemia Current Visit: Yes Status: Acute (3) MGUS (monoclonal gammopathy of unknown significance) Current Visit: Yes Status: Acute (4) Diastolic heart failure Current Visit: No Status: Acute Qualifiers: Heart failure chronicity: acute on chronic Qualified Code(s): I50.33 - Acute on chronic diastolic (congestive) heart failure (5) CKD (chronic kidney disease) Onset Date: 11/07/18 Current Visit: No Status: Chronic (6) Essential hypertension Current Visit: No Status: Chronic (7) Type 2 diabetes mellitus Current Visit: No Status: Chronic Qualifiers: Diabetes mellitus fci insulin use: with termite control servicer use Diabetes mellitus complication status: without complication Qualified Code(s): E11.9 - Type 2 diabetes mellitus without complications; Z79.4 - USP (current) use of insulin - Plan -Blood pressures on the lower end. -HTN medications: clonidine, doxazosin, nifedipine. Hydralazine discontinued. -Creatinine worsened today, Nephrology on board. Recommends general surgery consult for tunneled catheter placement. Dr. Isauro consulted, s/p catheter placement. Dialysis per nephrology. -Nephrology consult, Recommendations appreciated -Cardiology consult, recommendations appreciated. -s/p 1 unit PRBC; Hgb with appropriate response. Transfuse to keep H&H above 7 -Hold chemical AC d/t anemia -Protonix for GI prophylaxis. Disposition: Pending symptomatic improvement and outpatient dialysis set up .
[2019-08-17 14:36] LABS: Absolute Lymphocytes (CBC) 0.9 K/uL (0.7-4.9); Basophils % 0.8 % (0-1.3); Hematocrit 22.2 % (39.6-49.0); MPV 8.5 fL (7.6-11.3); RBC Red Blood Cell Count 3.13 M/uL (4.33-5.43)
[2019-08-17 17:30] LABS: Anisocytosis 2+; Blood Morphology Comment NOTED (NOT SEEN); Platelet Estimate ADEQ; Poikilocytosis 2+; Urine White Blood Cell Casts OK
[2019-08-17] MEDS: ATORVASTATIN 10 MG TAB PO SCH (20:56)
[2019-08-18] MEDS: HYDRALAZINE HCL 20 MG/ML VIAL IV PRN ×2 (00:38→12:24)
[2019-08-18 04:03] LABS: HBsAG Nonreactive (Nonreactive)
[2019-08-18 04:15] LABS: Basophils % 0.7 % (0-1.3); Hematocrit 23.4 % (39.6-49.0); MPV 9.4 fL (7.6-11.3); RBC Red Blood Cell Count 3.28 M/uL (4.33-5.43)
[2019-08-18 04:34] LABS: Albumin 2.8 g/dL (3.4-5.0); Bilirubin Total 0.3 mg/dL (0.2-1.0); Potassium 3.8 mmol/L (3.5-5.1); Protein, Total 6.1 g/dL (6.4-8.2)
[2019-08-18] MEDS: INSULIN -REGULAR HUMAN 50 UNIT/0.5 ML ML SQ SCH ×4 (07:30→21:00)
[2019-08-18] MEDS: DOXAZOSIN 2 MG TAB PO SCH ×2 (08:45→21:34)
[2019-08-18] MEDS: ALLOPURINOL 100 MG TAB PO SCH (08:46)
[2019-08-18] MEDS: CLONIDINE HCL 0.3 MG TAB PO SCH ×3 (08:46→21:35)
[2019-08-18] MEDS: NIFEDIPINE XL 90 MG TABLET PO SCH (08:46)
--- NOTE | 2019-08-18 10:03 | P.PN ---
Subjective Date of Service: 08/18/19 Chief Complaint: HTN urgency/Atrial fibrillation Subjective: No C/O voiced Patient seen and examined at bedside. No family at bedside. Chart reviewed and case discussed with nursing staff. No acute events noted overnight. No complaints this morning. Review of Systems 10-point ROS is otherwise unremarkable Physical Examination - Vital Signs Temperature: 98.2 F Blood Pressure: 130/60 Pulse: 53 Respirations: 16 Pulse Ox (%): 98 - Physical Exam General: Alert, In no apparent distress, Oriented x3 HEENT: Atraumatic, PERRLA, EOMI Neck: Supple, JVD not distended Respiratory: Clear to auscultation bilaterally, Normal air movement Cardiovascular: Regular rate/rhythm, Normal S1 S2 Gastrointestinal: Normal bowel sounds, No tenderness Musculoskeletal: No tenderness Integumentary: No rashes Neurological: Normal speech, Normal tone, Normal affect Lymphatics: No axilla or inguinal lymphadenopathy - Studies Laboratory Data (last 24 hrs) 08/18/19 03:50: Sodium 144, Potassium 3.8, BUN 54 H, Creatinine 4.89 H, Glucose 153 H, Total Bilirubin 0.3, AST 11 L, ALT 13, Alkaline Phosphatase 76 08/18/19 03:50: WBC 8.7, Hgb 7.7 L*, Hct 23.4 L, Plt Count 217 08/17/19 18:17: Hgb 7.6 L* 08/17/19 14:22: WBC 8.5, Hgb 7.4 L*, Hct 22.2 L, Plt Count 201 Medications List Reviewed: Yes Assessment And Plan - Current Problems (Diagnosis) (1) Hypertensive urgency Current Visit: Yes Status: Acute (2) Acute on chronic anemia Current Visit: Yes Status: Acute (3) MGUS (monoclonal gammopathy of unknown significance) Current Visit: Yes Status: Acute (4) Diastolic heart failure Current Visit: No Status: Acute Qualifiers: Heart failure chronicity: acute on chronic Qualified Code(s): I50.33 - Acute on chronic diastolic (congestive) heart failure (5) CKD (chronic kidney disease) Onset Date: 11/07/18 Current Visit: No Status: Chronic (6) Essential hypertension Current Visit: No Status: Chronic (7) Type 2 diabetes mellitus Current Visit: No Status: Chronic Qualifiers: Diabetes mellitus residential insulin use: with residential use Diabetes mellitus complication status: without complication Qualified Code(s): E11.9 - Type 2 diabetes mellitus without complications; Z79.4 - 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 -HTN medications: clonidine, doxazosin, nifedipine. Hydralazine discontinued. -Creatinine worsened today, Nephrology on board. Recommends general surgery consult for tunneled catheter placement. Dr. Box consulted, s/p catheter placement. Dialysis per nephrology. -Nephrology consult, Recommendations appreciated -Cardiology consult, recommendations appreciated. -s/p 1 unit PRBC; Hgb with appropriate response. Transfuse to keep H&H above 7 -Hold chemical AC d/t anemia -Protonix for GI prophylaxis. Disposition: Pending outpatient dialysis set up .
[2019-08-18] MEDS: EPOETIN 4,000 UNIT/ML VIAL IV SCH (17:47)
[2019-08-18] MEDS: ATORVASTATIN 10 MG TAB PO SCH (21:34)
--- NOTE | 2019-08-19 03:31 | PN ---
Date of Progress Note: 08/18/2019 Chief Complaint: End-stage renal disease, on dialysis. Patient is undergoing dialysis 3 times per w [facility] [place] on Sunday, Sunday, Sunday. 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 He was scheduled for blood transfusion. He was found to have hypertensive emergency. Patient is on blood pressure medication and blood pressure has been improving. Fluid overload, mild. Patient will have his dialysis with ultrafiltration to control volemia and pre vent legs edema. Patient has history of congestive heart failure with diastolic dysfunction. Sj ennis, CHF is compensated. Review of Systems: Denies fever or chills. Physical Examination: Lungs: Clear to auscultation bilaterally. Heart: S1, S2. Abdomen: Soft, benign. Extremities: Slight edema. Laboratory Work: Potassium 3.8, creatinine 4.81, BUN 47. Phosphorus 5.1. Impression And Plan: 1.End-stage renal disease. Dialysis will be done today. Continue to adjust ultrafiltration goal ac cording to blood pressure. 2.Anemia. Patient may require blood transfusion. Monitor hemoglobin level and adjust treatment according. 3.Renal osteodystrophy. Continue renal diet and binders. EB/MODL Voice ID: [id number] Report ID: [id number]
[2019-08-19 04:39] LABS: Absolute Lymphocytes (CBC) 0.8 K/uL (0.7-4.9); Basophils % 0.5 % (0-1.3); Hematocrit 23.7 % (39.6-49.0); Lymphocytes % 7.9 % (15.3-44.8); MPV 9.6 fL (7.6-11.3); RBC Red Blood Cell Count 3.31 M/uL (4.33-5.43)
[2019-08-19 04:47] LABS: Albumin 2.9 g/dL (3.4-5.0); Bilirubin Total 0.3 mg/dL (0.2-1.0); Potassium 3.9 mmol/L (3.5-5.1); Protein, Total 6.4 g/dL (6.4-8.2)
[2019-08-19] MEDS: INSULIN -REGULAR HUMAN 50 UNIT/0.5 ML ML SQ SCH ×4 (07:30→21:00)
[2019-08-19] MEDS: CLONIDINE HCL 0.3 MG TAB PO SCH ×3 (08:03→20:13)
[2019-08-19] MEDS: DOXAZOSIN 2 MG TAB PO SCH ×2 (08:03→20:14)
[2019-08-19] MEDS: NIFEDIPINE XL 90 MG TABLET PO SCH (08:03)
[2019-08-19] MEDS: ALLOPURINOL 100 MG TAB PO SCH (08:04)
[2019-08-19 08:59] VITALS: O2SAT 98
--- NOTE | 2019-08-19 13:38 | P.PN ---
Subjective Date of Service: 08/19/19 Chief Complaint: HTN urgency/Atrial fibrillation Subjective: No C/O voiced, Improving Patient seen and examined at bedside. No family at bedside. Chart reviewed and case discussed with nursing staff. No acute events noted overnight. No complaints this morning. Review of Systems 10-point ROS is otherwise unremarkable Physical Examination - Vital Signs Temperature: 98.1 F Blood Pressure: 112/50 Pulse: 51 Respirations: 16 Pulse Ox (%): 99 - Physical Exam General: Alert, In no apparent distress HEENT: Atraumatic, PERRLA, EOMI Neck: Supple, JVD not distended Respiratory: Clear to auscultation bilaterally, Normal air movement Cardiovascular: Regular rate/rhythm, Normal S1 S2 Gastrointestinal: Normal bowel sounds, No tenderness Musculoskeletal: No tenderness Integumentary: No rashes Neurological: Normal speech, Normal tone, Normal affect Lymphatics: No axilla or inguinal lymphadenopathy - Studies Laboratory Data (last 24 hrs) 08/19/19 03:50: Sodium 142, Potassium 3.9, BUN 35 H, Creatinine 3.84 H D, Glucose 123 H, Total Bilirubin 0.3, AST 9 L, ALT 10 L, Alkaline Phosphatase 81 08/19/19 03:50: WBC 10.2 D, Hgb 7.8 L*, Hct 23.7 L, Plt Count 233 Medications List Reviewed: Yes Assessment And Plan - Current Problems (Diagnosis) (1) Hypertensive urgency Current Visit: Yes Status: Acute (2) Acute on chronic anemia Current Visit: Yes Status: Acute (3) MGUS (monoclonal gammopathy of unknown significance) Current Visit: Yes Status: Acute (4) Diastolic heart failure Current Visit: No Status: Acute Qualifiers: Heart failure chronicity: acute on chronic Qualified Code(s): I50.33 - Acute on chronic diastolic (congestive) heart failure (5) CKD (chronic kidney disease) Onset Date: 11/07/18 Current Visit: No Status: Chronic (6) Essential hypertension Current Visit: No Status: Chronic (7) Type 2 diabetes mellitus Current Visit: No Status: Chronic Qualifiers: Diabetes mellitus middle or intermediate school principal insulin use: with middle or intermediate school principal use Diabetes mellitus complication status: without complication Qualified Code(s): E11.9 - Type 2 diabetes mellitus without complications; Z79.4 - prison (current) use of insulin - Plan -Blood pressures on the lower end. -HTN medications: clonidine, doxazosin, nifedipine. Hydralazine discontinued. -Creatinine worsened today, Nephrology on board. Recommends general surgery consult for tunneled catheter placement. Dr. Box consulted, s/p catheter placement. Dialysis per nephrology. -Nephrology consult, Recommendations appreciated -Cardiology consult, recommendations appreciated. -s/p 1 unit PRBC; Hgb with appropriate response. Transfuse to keep H&H above 7 -Hold chemical AC d/t anemia -Protonix for GI prophylaxis. Disposition: Pending outpatient dialysis set up .
--- NOTE | 2019-08-19 17:42 | RAD REPORT ---
EXAM DESCRIPTION: RAD - Chest Single View - 08/19/2019 5:01 pm CLINICAL HISTORY: Shortness of breath, dialysis patient COMPARISON: August 13 TECHNIQUE: AP portable chest image was obtained 1656 hour . FINDINGS: Lung volumes are low. This limits retrocardiac assessment. Lung markings are prominent but not clearly different comparison. Right-sided dialysis catheter is in place. Heart size is upper nor mal. No acute failure or volume overload seen. No measurable pleural effusion and no pneumothorax. No acute bony abnormality seen. No acute aortic findings suspected. IMPRESSION: No acute cardiopulmonary process. Chest findings are similar to comparison. No suspicion for current or prior TB infection.
--- NOTE | 2019-08-19 18:19 | PN ---
Date of Progress Note: 08/19/2019 Subjective: Patient was admitted with urgent hypertension, developed acute kidney injury. The patie nt nonoliguric. The patient was started on dialysis, currently 3 times a week Sunday, Sunday, and Sunday. Physical Examination: Vital Signs: Blood pressure 112/50, earlier was 165/60; pulse of 50. The patient still has good uri ne output of 400 daily. Chest: Clear to auscultation. Heart: S1, S2. Systolic murmur. Abdomen: Soft, nontender. Extremities: Trace edema. Laboratory Data: H and H 7.8/23.7. Sodium 142, potassium 3.9, bicarb 29, BUN 35, creatinine 3.8, ca lcium 7.8. Current Medications: The patient on its include. 1.Heparin. 2.Epogen. 3.Atorvastatin. 4.Clonidine 0.3 t.i.d. 5.Cardura 2 mg b.i.d. 6.Nifedipine 90. 7.Allopurinol. Assessment And Plan: 1.Acute kidney injury on advanced chronic kidney disease secondary to hypertension urgency, stable, nonoliguric. I am going to continue the patient on the dialysis, schedule Sunday, Sunday, and Sun. Waiting for chair time. Whenever the patient had chair time, patient will be able to be discha rged. 2.Hypertension, controlled, optimal. I am going to accept blood pressure on this range in favor of avoiding any hypotension given the fact that the patient still on acute kidney injury. 3.Light chain disease. Follow up with Oncology. 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 Continue LUDWIG. 5.Secondary hyperparathyroid. We will continue to monitor. ELEONORA/DEONTE Voice ID: [id number] Report ID: [id number]
[2019-08-19] MEDS: ATORVASTATIN 10 MG TAB PO SCH (20:16)
[2019-08-20 04:37] LABS: Absolute Lymphocytes (CBC) 1.4 K/uL (0.7-4.9); Basophils % 0.4 % (0-1.3); Hematocrit 26.9 % (39.6-49.0); Lymphocytes % 13.3 % (15.3-44.8); MPV 9.9 fL (7.6-11.3); RBC Red Blood Cell Count 3.76 M/uL (4.33-5.43)
[2019-08-20 05:16] LABS: Albumin 3.3 g/dL (3.4-5.0); Bilirubin Total 0.3 mg/dL (0.2-1.0); Potassium 4.2 mmol/L (3.5-5.1); Protein, Total 7.1 g/dL (6.4-8.2)
[2019-08-20] MEDS ORDERED: HEPARIN 10,000 UNIT/10 ML VIAL IV SCH (07:00)
[2019-08-20] MEDS: INSULIN -REGULAR HUMAN 50 UNIT/0.5 ML ML SQ SCH ×2 (07:30→11:30)
[2019-08-20] MEDS: EPOETIN 4,000 UNIT/ML VIAL IV SCH (08:28)
[2019-08-20] MEDS: ALLOPURINOL 100 MG TAB PO SCH ×2 (09:00→13:14)
[2019-08-20] MEDS: CLONIDINE HCL 0.3 MG TAB PO SCH ×2 (09:00→13:14)
[2019-08-20] MEDS: NIFEDIPINE XL 90 MG TABLET PO SCH ×2 (09:00→13:15)
[2019-08-20] MEDS: DOXAZOSIN 2 MG TAB PO SCH (09:00)
[2019-08-20 13:15] VITALS: BP 176/76
[2019-08-20 13:17] VITALS: TEMP 98.4
--- NOTE | 2019-08-20 17:25 | P.DS ---
Admission Date: 08/07/19 Discharge Date: 08/20/19 Disposition: ROUTINE DISCHARGE Discharge Condition: GOOD Reason for Admission: HTN urgency/Atrial fibrillation Consultations: Cardiology nephrology general surgery Procedures: Tunneled catheter placement for dialysis - Problems (1) Hypertensive urgency Status: Acute (2) Acute on chronic anemia Status: Acute (3) MGUS (monoclonal gammopathy of unknown significance) Status: Acute (4) Diastolic heart failure Status: Acute Qualifiers: Heart failure chronicity: acute on chronic Qualified Code(s): I50.33 - Acute on chronic diastolic (congestive) heart failure (5) CKD (chronic kidney disease) Onset Date: 11/07/18 Status: Chronic (6) Essential hypertension Status: Chronic (7) Type 2 diabetes mellitus Status: Chronic Qualifiers: Diabetes mellitus restoration officer insulin use: with [facility] use Diabetes mellitus complication status: without complication Qualified Code(s): E11.9 - Type 2 diabetes mellitus without complications; 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 Patient was sent to day surgery for a transfusion for his Hgb drop to 6 (from 12 two weeks ago). Prior to getting transfused, patient's bp was 200's/100's and he was noted to be in atrial fibrillation/abnormal heart rhythm. Patient was fairly asymptomatic but due to his blood pressure, he was unable to get blood and we were called to admit patient for further evaluation. Hospital Course: Patient was admitted for elevated blood pressures, his blood pressure medications were adjusted. He was eventually discharged on clonidine t.i.d., Lasix 40 q.d., doxazosin and nifedipine. Cardiology nephrology were both consulted, recommendations appreciated. Patient required to be initiated on dialysis. General surgery was consulted for tunneled catheter placement. Patient was initiated on dialysis, he tolerated dialysis well. He did receive 1 unit PRBC with appropriate response. He did not require any further transfusions. His discharge was delayed due to setting up of his outpatient dialysis and getting his chair time. Social work was consulted, patient was eventually set up with dialysis as an outpatient with deviated on Sunday. His diagnoses and treatment plan was explained to him, all questions were answered and he verbalized understanding. He was discharged home after being cleared for discharge by nephrology and cardiology. He otherwise did well throughout the stay. He was working with physical therapy, tolerating an oral diet and remained otherwise hemodynamically stable. Vital Signs/Physical Exam: Temp Pulse Resp BP Pulse Ox 98.4 F 67 18 176/76 H 99 08/20/19 12:00 08/20/19 13:15 08/20/19 12:00 08/20/19 13:15 08/20/19 12:00 General: Alert, In no apparent distress HEENT: Atraumatic, PERRLA, EOMI Neck: Supple, JVD not distended Respiratory: Clear to auscultation bilaterally, Normal air movement Cardiovascular: Regular rate/rhythm, Normal S1 S2 Gastrointestinal: Normal bowel sounds, No tenderness Musculoskeletal: No tenderness Integumentary: No rashes Neurological: Normal speech, Normal tone, Normal affect Lymphatics: No axilla or inguinal lymphadenopathy Laboratory Data at Discharge: WBC 10.6 K/uL (4.3-10.9) 08/20/19 04:05 Hgb 8.7 g/dL (13.6-17.9) L 08/20/19 04:05 Hct 26.9 % (39.6-49.0) L 08/20/19 04:05 Plt Count 245 K/uL (152-406) 08/20/19 04:05 Sodium 143 mmol/L (136-145) 08/20/19 04:05 Potassium 4.2 mmol/L (3.5-5.1) 08/20/19 04:05 BUN 54 mg/dL (7-18) H 08/20/19 04:05 Creatinine 5.13 mg/dL (0.55-1.3) H* D 08/20/19 04:05 Glucose 124 mg/dL (74-106) H 08/20/19 04:05 Uric Acid 7.8 mg/dL (3.5-7.2) H 08/11/19 06:14 Phosphorus 5.1 mg/dL (2.5-4.9) H 08/17/19 05:38 Total Bilirubin 0.3 mg/dL (0.2-1.0) 08/20/19 04:05 AST 10 U/L (15-37) L 08/20/19 04:05 ALT 10 U/L (12-78) L 08/20/19 04:05 Alkaline Phosphatase 85 U/L (45-117) 08/20/19 04:05 Home Medications: Atorvastatin Calcium [Lipitor*] 10 mg PO DAILY 12/12/16 Allopurinol [Zyloprim*] 100 mg PO DAILY #30 tab 12/25/16 cloNIDine HCl [Catapres*] 0.3 mg PO TID 11/06/18 Furosemide [Lasix*] 40 mg PO DAILY 08/07/19 Doxazosin [Cardura*] 2 mg PO BID #60 tab 08/20/19 Nifedipine [Nifedipine ER] 90 mg PO DAILY #30 tab.er.24 08/20/19 New Medications: Doxazosin [Cardura*] 2 mg PO BID #60 tab Nifedipine [Nifedipine ER] 90 mg PO DAILY #30 tab.er.24 Diet: Renal Activity: Ad gary Followup: Lucy Mercedes MD [ACTIVE - CAN ADMIT] - Time spent managing pt's care (in minutes): 55
--- NOTE | 2019-08-20 18:47 | PN ---
Date of Progress Note: 08/20/2019 Subjective: The patient was admitted with urgent hypertension with acute kidney injury on chronic ki dney disease. The patient was initiated on dialysis. Patient only waiting for chair placement. Physical Examination: General: Seen on dialysis. Vital Signs: Blood pressure 180/77, pulse of 67, afebrile. Chest: Clear to auscultation. Heart: S1, S2. Regular. Abdomen: Soft, nontender. Extremities: Lymphedema, +2 edema. Laboratory Data: WBC 10.6, H and H 8.7/26.9, platelets 245. Sodium 143, potassium 4.2, bicarb 25, B UN 54, creatinine 5.1, calcium of 8. Current Medications: The patient on its include: 1.Atorvastatin. 2.Clonidine 0.3 t.i.d. 3.Cardura 2 b.i.d. 4.Nifedipine 90 daily. 5.Insulin. Assessment And Plan: 1.Acute kidney injury on advanced chronic kidney disease. We will continue dialysis Sunday, , Sunday. The patient has been accepted at [facility] as T[facility]. Chair is going to be start ed on dialysis tomorrow. The patient cleared from the renal standpoint for discharge planning. 2.Hypertension, not controlled. I am going to resume Lasix 40 mg daily. We will follow up. 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 Continue LUDWIG . Follow up with Hematology. 4.Secondary hyperparathyroid. Continue current treatment. 5.Lymphedema. We will continue to monitor . We will use stocking socks as outpatient. LISSA Voice ID: [id number] Report ID: [id number]
[2019-08-21] MEDS ORDERED: FUROSEMIDE 40 MG TABLET PO SCH (09:00)
== END 2019-08-20 15:32 | disposition home or self-care (01) | DRG 291 ==
LOC: DS 07:19 → 3RD-ICU 09:02 → 4TH 08-09 14:15
PROVIDERS: ADMIT Family Medicine; ATTEND Family Medicine
PROC: 5A1D70Z Performance of Urinary Filtration, Intermittent, Less than 6 Hours Per Day (ICD-10-PCS; 2019-08-13)
PROC: 05HM33Z Insertion of Infusion Device into Right Internal Jugular Vein, Percutaneous Approach (ICD-10-PCS; principal; 2019-08-13 09:00)
PROC: 5A1D70Z Performance of Urinary Filtration, Intermittent, Less than 6 Hours Per Day (ICD-10-PCS; 2019-08-14)
PROC: 5A1D70Z Performance of Urinary Filtration, Intermittent, Less than 6 Hours Per Day (ICD-10-PCS; 2019-08-15)
PROC: 5A1D70Z Performance of Urinary Filtration, Intermittent, Less than 6 Hours Per Day (ICD-10-PCS; 2019-08-18)
PROC: 5A1D70Z Performance of Urinary Filtration, Intermittent, Less than 6 Hours Per Day (ICD-10-PCS; 2019-08-20)
DX: I13.0 Hypertensive heart and chronic kidney disease with heart failure and stage 1 through stage 4 chronic kidney disease, or unspecified chronic kidney disease (principal); I50.33 Acute on chronic diastolic (congestive) heart failure; N17.0 Acute kidney failure with tubular necrosis; N18.4 Chronic kidney disease, stage 4 (severe); Q61.3 Polycystic kidney, unspecified; N25.81 Secondary hyperparathyroidism of renal origin; I16.0 Hypertensive urgency; D63.1 Anemia in chronic kidney disease; D47.2 Monoclonal gammopathy; E11.22 Type 2 diabetes mellitus with diabetic chronic kidney disease; N18.9 Chronic kidney disease, unspecified; I25.10 Atherosclerotic heart disease of native coronary artery without angina pectoris; E78.5 Hyperlipidemia, unspecified; E11.40 Type 2 diabetes mellitus with diabetic neuropathy, unspecified; I89.0 Lymphedema, not elsewhere classified; M10.9 Gout, unspecified; R00.1 Bradycardia, unspecified; I48.91 Unspecified atrial fibrillation; R79.89 Other specified abnormal findings of blood chemistry; N25.0 Renal osteodystrophy; Z85.46 Personal history of malignant neoplasm of prostate; Z99.2 Dependence on renal dialysis
CPT/HCPCS: 36415; 36430; 71045; 76000; 76770; 80053; 80069; 81003; 81015; 82550; 82668; 82728; 82962; 83520; 83540; 83615; 83970; 84443; 84466; 84550; 85014; 85018; 85025; 85044; 86021; 86038; 86225; 86317; 86430; 86704; 86706; 86850; 86900; 86901; 87086; 87088; 87340; 87522; 88108; 90935; 93005; 97116; 97530; C1752; J0360; J0690; J1644; J1940; J2250; J2405; J2704; J2916; J3010; J7030; P9016

== ENCOUNTER 2019-11-11 11:17 | Emergency (ER) | payer OTHER ==
--- OUTSIDE RECORDS SUMMARY | 2019-11-11 11:21 | XMS REPORT ---
:1940 [facility] Organization [facility] Address [address] [place] [address] Care Team Providers Name Role Phone BANDAR MOORE Unavailable Unavailable Problems This patient has no known problems. Allergies, Adverse Reactions, Alerts This patient has no known allergies or adverse reactions. Medications This patient has no known medications. Results Test Description Test Time Test Comments Text Results Atomic Results Result Comments BLOOD CULTURE 2017-10-27 10:00:00 Test Item Value Reference Range Comments CULTURE (BEAKER) (test yrqd=9658) No growth in 5 days BLOOD [id number] 10:00:00 Test Item Value Reference Range Comments CULTURE (BEAKER) (test pptl=0366) No growth in 5 days POCT-GLUCOSE [id number] 12:18:00 Test Item Value Reference Range Comments POC-GLUCOSE METER (BEAKER) 181 mg/dL 70-110 TESTED AT [address] (test lnab=6123) [place] [id number] POCT-GLUCOSE [id number] 08:05:00 Test Item Value Reference Range Comments POC-GLUCOSE METER (BEAKER) 143 mg/dL 70-110 TESTED AT [address] (test vpxr=4764) [place] [id number] BASIC METABOLIC [id number] 06:08:00 Test Item Value Reference Range Comments SODIUM (BEAKER) (test 139 meq/L 136-145 ftmc=559) POTASSIUM (BEAKER) (test 4.3 meq/L 3.5-5.1 vzny=612) CHLORIDE (BEAKER) (test 107 meq/L 98-107 jlmv=622) CO2 (BEAKER) (test 23 meq/L 22-29 upnq=919) BLOOD UREA NITROGEN 40 mg/dL 7-21 (BEAKER) (test pehd=687) CREATININE (BEAKER) (test 2.56 mg/dL 0.57-1.25 lfxp=557) GLUCOSE RANDOM (BEAKER) 150 mg/dL 70-105 (test qbyc=276) CALCIUM (BEAKER) (test 7.7 mg/dL 8.4-10.2 ztki=572) EGFR (BEAKER) (test 30 mL/min/1.73 sq m ESTIMATED GFR IS NOT qgiw=3928) ACCURATE CREATININE CLEARANCE IN PREDICTING GLOMERULAR FILTRATION RATE. ESTIMATED GFR IS NOT APPLICABLE FOR DIALYSIS PATIENTS. [id number] 06:03:00 Test Item Value Reference Range Comments PHOSPHORUS (BEAKER) (test lygo=582) 3.4 mg/dL 2.3-4.7 [id number] 06:03:00 Test Item Value Reference Range Comments MAGNESIUM (BEAKER) (test uteb=210) 1.9 mg/dL 1.6-2.6 CBC W/PLT COUNT & AUTO [id number] 05:38:00 Test Item Value Reference Range Comments WHITE BLOOD CELL COUNT (BEAKER) (test lklf=386) 9.4 K/ L 3.5-10.5 RED BLOOD CELL COUNT (BEAKER) (test guhr=842) 2.93 M/ L 4.63-6.08 HEMOGLOBIN (BEAKER) (test tade=511) 7.4 GM/DL 13.7-17.5 HEMATOCRIT (BEAKER) (test ehed=415) 23.0 % 40.1-51.0 MEAN CORPUSCULAR VOLUME (BEAKER) (test cxwe=466) 78.5 fL 79.0-92.2 MEAN CORPUSCULAR HEMOGLOBIN (BEAKER) (test 25.3 pg 25.7-32.2 qkjv=910) MEAN CORPUSCULAR HEMOGLOBIN CONC (BEAKER) (test 32.2 GM/DL 32.3-36.5 cvkn=025) RED CELL DISTRIBUTION WIDTH (BEAKER) (test 17.5 % 11.6-14.4 rkkt=728) PLATELET COUNT (BEAKER) (test lyyh=178) 168 K/CU MM 150-450 MEAN PLATELET VOLUME (BEAKER) (test otdx=313) 12.2 fL 9.4-12.4 NUCLEATED RED BLOOD CELLS (BEAKER) (test 0 /100 WBC 0-0 vvvk=305) NEUTROPHILS RELATIVE PERCENT (BEAKER) (test 82 % byto=186) LYMPHOCYTES RELATIVE PERCENT (BEAKER) (test 7 % nmbz=965) MONOCYTES RELATIVE PERCENT (BEAKER) (test 9 % ymcg=781) EOSINOPHILS RELATIVE PERCENT (BEAKER) (test 2 % idwx=385) BASOPHILS RELATIVE PERCENT (BEAKER) (test 0 % cybi=876) NEUTROPHILS ABSOLUTE COUNT (BEAKER) (test 7.65 K/ L 1.78-5.38 byge=935) LYMPHOCYTES ABSOLUTE COUNT (BEAKER) (test 0.65 K/ L 1.32-3.57 fdty=785) MONOCYTES ABSOLUTE COUNT (BEAKER) (test 0.88 K/ L 0.30-0.82 jqdk=913) EOSINOPHILS ABSOLUTE COUNT (BEAKER) (test 0.14 K/ L 0.04-0.54 uyib=150) BASOPHILS ABSOLUTE COUNT (BEAKER) (test 0.02 K/ L 0.01-0.08 lnyt=764) IMMATURE GRANULOCYTES-RELATIVE PERCENT (BEAKER) 0 % 0-1 (test ajhv=7780) CALCIUM, [id number] 05:36:00 Test Item Value Reference Range Comments CALCIUM IONIZED (BEAKER) (test gazu=540) 0.89 mmol/L 1.12-1.27 PH, BLOOD (BEAKER) (test dxjo=6001) 7.54 POCT-GLUCOSE [id number] 21:59:00 Test Item Value Reference Range Comments POC-GLUCOSE METER (BEAKER) 184 mg/dL 70-110 TESTED AT [address] (test srkk=0541) [place] [id number] POCT-GLUCOSE [id number] 17:35:00 Test Item Value Reference Range Comments POC-GLUCOSE METER (BEAKER) 130 mg/dL 70-110 TESTED AT [address] (test vxfg=6991) [facility] [address] POCT-GLUCOSE [id number] 11:42:00 Test Item Value Reference Range Comments POC-GLUCOSE METER (BEAKER) 161 mg/dL 70-110 TESTED AT [address] (test lzoo=3468) [place] [id number] POCT-GLUCOSE [id number] 10:42:00 Test Item Value Reference Range Comments POC-GLUCOSE METER (BEAKER) 172 mg/dL 70-110 TESTED AT [address] (test opmr=4830) [place] [id number] CBC W/PLT COUNT & AUTO [id number] 09:06:00 Test Item Value Reference Range Comments WHITE BLOOD CELL COUNT (BEAKER) (test rhkz=857) 10.7 K/ L 3.5-10.5 RED BLOOD CELL COUNT (BEAKER) (test pmcq=278) 3.06 M/ L 4.63-6.08 HEMOGLOBIN (BEAKER) (test kovm=342) 7.7 GM/DL 13.7-17.5 HEMATOCRIT (BEAKER) (test qsdy=472) 23.7 % 40.1-51.0 MEAN CORPUSCULAR VOLUME (BEAKER) (test uvyh=747) 77.5 fL 79.0-92.2 MEAN CORPUSCULAR HEMOGLOBIN (BEAKER) (test 25.2 pg 25.7-32.2 ghqa=551) MEAN CORPUSCULAR HEMOGLOBIN CONC (BEAKER) (test 32.5 GM/DL 32.3-36.5 hmvf=376) RED CELL DISTRIBUTION WIDTH (BEAKER) (test 17.0 % 11.6-14.4 cvtt=514) PLATELET COUNT (BEAKER) (test onzc=632) 154 K/CU MM 150-450 MEAN PLATELET VOLUME (BEAKER) (test onqg=181) 12.5 fL 9.4-12.4 NUCLEATED RED BLOOD CELLS (BEAKER) (test 0 /100 WBC 0-0 vrqr=689) NEUTROPHILS RELATIVE PERCENT (BEAKER) (test 85 % gcqf=797) LYMPHOCYTES RELATIVE PERCENT (BEAKER) (test 6 % aetc=762) MONOCYTES RELATIVE PERCENT (BEAKER) (test 8 % fduz=565) EOSINOPHILS RELATIVE PERCENT (BEAKER) (test 1 % qmch=145) BASOPHILS RELATIVE PERCENT (BEAKER) (test 0 % fuls=442) NEUTROPHILS ABSOLUTE COUNT (BEAKER) (test 9.05 K/ L 1.78-5.38 vrlr=601) LYMPHOCYTES ABSOLUTE COUNT (BEAKER) (test 0.63 K/ L 1.32-3.57 qmuu=307) MONOCYTES ABSOLUTE COUNT (BEAKER) (test 0.88 K/ L 0.30-0.82 upuu=203) EOSINOPHILS ABSOLUTE COUNT (BEAKER) (test 0.06 K/ L 0.04-0.54 zbon=926) BASOPHILS ABSOLUTE COUNT (BEAKER) (test 0.01 K/ L 0.01-0.08 echd=004) IMMATURE GRANULOCYTES-RELATIVE PERCENT (BEAKER) 1 % 0-1 (test wvek=2709) BASIC METABOLIC [id number] 08:20:00 Test Item Value Reference Range Comments SODIUM (BEAKER) (test 142 meq/L 136-145 bwxb=487) POTASSIUM (BEAKER) (test 4.0 meq/L 3.5-5.1 jpcr=274) CHLORIDE (BEAKER) (test 108 meq/L 98-107 mfsv=293) CO2 (BEAKER) (test 25 meq/L 22-29 kpao=939) BLOOD UREA NITROGEN 41 mg/dL 7-21 (BEAKER) (test oyox=402) CREATININE (BEAKER) (test 2.65 mg/dL 0.57-1.25 bqas=739) GLUCOSE RANDOM (BEAKER) 132 mg/dL 70-105 (test bdud=557) CALCIUM (BEAKER) (test 7.8 mg/dL 8.4-10.2 opfc=715) EGFR (BEAKER) (test 29 mL/min/1.73 sq m ESTIMATED GFR IS NOT isba=9810) ACCURATE CREATININE CLEARANCE IN PREDICTING GLOMERULAR FILTRATION RATE. ESTIMATED GFR IS NOT APPLICABLE FOR DIALYSIS PATIENTS. [id number] 07:57:00 Test Item Value Reference Range Comments PHOSPHORUS (BEAKER) (test exuy=982) 3.2 mg/dL 2.3-4.7 [id number] 07:57:00 Test Item Value Reference Range Comments MAGNESIUM (BEAKER) (test zmuh=501) 1.7 mg/dL 1.6-2.6 CALCIUM, [id number] 07:40:00 Test Item Value Reference Range Comments CALCIUM IONIZED (BEAKER) (test bxkh=164) 0.95 mmol/L 1.12-1.27 PH, BLOOD (BEAKER) (test ybha=5907) 7.53 POCT-GLUCOSE [id number] 21:39:00 Test Item Value Reference Range Comments POC-GLUCOSE METER (BEAKER) 138 mg/dL 70-[address] [facility] [address] [facility] (test jeos=3524) [facility] [address] POCT-GLUCOSE [id number] 18:16:00 Test Item Value Reference Range Comments POC-GLUCOSE METER (BEAKER) 158 mg/dL 70-[address] [facility] [address] [facility] (test evab=6992) [facility] [address] POCT-GLUCOSE [id number] 12:07:00 Test Item Value Reference Range Comments POC-GLUCOSE METER (BEAKER) 153 mg/dL 70-[address] [facility] [address] [facility] (test ovdy=9894) [facility] [address] POCT-GLUCOSE [id number] 08:12:00 Test Item Value Reference Range Comments POC-GLUCOSE METER (BEAKER) 133 mg/dL 70-110 TESTED AT [place] [id number] [facility] (test rygt=2764) [facility] [address] BASIC METABOLIC [id number] 05:25:00 Test Item Value Reference Range Comments SODIUM (BEAKER) (test 142 meq/L 136-145 qdhp=982) POTASSIUM (BEAKER) (test 4.0 meq/L 3.5-5.1 kvzv=819) CHLORIDE (BEAKER) (test 109 meq/L 98-107 euej=193) CO2 (BEAKER) (test 24 meq/L 22-29 fyba=747) BLOOD UREA NITROGEN 47 mg/dL 7-21 (BEAKER) (test cshh=965) CREATININE (BEAKER) (test 3.13 mg/dL 0.57-1.25 fcly=246) GLUCOSE RANDOM (BEAKER) 130 mg/dL 70-105 (test rqzk=404) CALCIUM (BEAKER) (test 7.6 mg/dL 8.4-10.2 cnph=080) EGFR (BEAKER) (test 24 mL/min/1.73 sq m ESTIMATED GFR IS NOT qufw=8810) ACCURATE CREATININE CLEARANCE IN PREDICTING GLOMERULAR FILTRATION RATE. ESTIMATED GFR IS NOT APPLICABLE FOR DIALYSIS PATIENTS. CALCIUM, [id number] 05:23:00 Test Item Value Reference Range Comments CALCIUM IONIZED (BEAKER) (test nbjx=935) 0.88 mmol/L 1.12-1.27 PH, BLOOD (BEAKER) (test atwg=0630) 7.50 [id number] 05:22:00 Test Item Value Reference Range Comments PHOSPHORUS (BEAKER) (test eavx=144) 3.7 mg/dL 2.3-4.7 [id number] 05:22:00 Test Item Value Reference Range Comments MAGNESIUM (BEAKER) (test thso=053) 1.8 mg/dL 1.6-2.6 CBC W/PLT COUNT & AUTO [id number] 05:10:00 Test Item Value Reference Range Comments WHITE BLOOD CELL COUNT (BEAKER) (test aign=400) 12.5 K/ L 3.5-10.5 RED BLOOD CELL COUNT (BEAKER) (test xhtj=294) 2.83 M/ L 4.63-6.08 HEMOGLOBIN (BEAKER) (test pbrx=640) 7.2 GM/DL 13.7-17.5 HEMATOCRIT (BEAKER) (test bumk=012) 22.2 % 40.1-51.0 MEAN CORPUSCULAR VOLUME (BEAKER) (test tvfx=992) 78.4 fL 79.0-92.2 MEAN CORPUSCULAR HEMOGLOBIN (BEAKER) (test 25.4 pg 25.7-32.2 vhlw=861) MEAN CORPUSCULAR HEMOGLOBIN CONC (BEAKER) (test 32.4 GM/DL 32.3-36.5 ntra=903) RED CELL DISTRIBUTION WIDTH (BEAKER) (test 16.4 % 11.6-14.4 oans=394) PLATELET COUNT (BEAKER) (test cmax=707) 128 K/CU MM 150-450 MEAN PLATELET VOLUME (BEAKER) (test kwxz=723) 12.1 fL 9.4-12.4 NUCLEATED RED BLOOD CELLS (BEAKER) (test 0 /100 WBC 0-0 ofsp=896) NEUTROPHILS RELATIVE PERCENT (BEAKER) (test 86 % dtqo=023) LYMPHOCYTES RELATIVE PERCENT (BEAKER) (test 5 % xzau=307) MONOCYTES RELATIVE PERCENT (BEAKER) (test 8 % dthf=395) EOSINOPHILS RELATIVE PERCENT (BEAKER) (test 0 % pglc=876) BASOPHILS RELATIVE PERCENT (BEAKER) (test 0 % pqcm=585) NEUTROPHILS ABSOLUTE COUNT (BEAKER) (test 10.79 K/ L 1.78-5.38 svxh=300) LYMPHOCYTES ABSOLUTE COUNT (BEAKER) (test 0.61 K/ L 1.32-3.57 auyg=220) MONOCYTES ABSOLUTE COUNT (BEAKER) (test 0.96 K/ L 0.30-0.82 tcij=635) EOSINOPHILS ABSOLUTE COUNT (BEAKER) (test 0.05 K/ L 0.04-0.54 jvxv=730) BASOPHILS ABSOLUTE COUNT (BEAKER) (test 0.02 K/ L 0.01-0.08 gqcl=637) IMMATURE GRANULOCYTES-RELATIVE PERCENT (BEAKER) 0 % 0-1 (test erpk=0984) HEMOGLOBIN AND [id number] 00:40:00 Test Item Value Reference Range Comments HEMOGLOBIN (BEAKER) (test yqet=245) 7.1 GM/DL 13.7-17.5 HEMATOCRIT (BEAKER) (test fftq=485) 21.6 % 40.1-51.0 Send specimen after 2 units PRBC transfusion is completedPOCT-GLUCOSE [id number] 21:20:00 Test Item Value Reference Range Comments POC-GLUCOSE METER (BEAKER) 114 mg/dL 70-110 TESTED AT [address] (test hquy=7295) [place] [address] POCT-GLUCOSE [id number] 17:14:00 Test Item Value Reference Range Comments POC-GLUCOSE METER (BEAKER) 92 mg/dL 70-110 TESTED AT [address] (test lspb=7454) [place] [address] ANG, EMBOLIZATION, EXTENSIVE - [id number] 15:08:00Reason for exam:-> left kidney intraparenchymal hemorrhageReason for exam:->please review filmsand consider embolization, please call Dr Duke with urology to discuss- [phone] REPORT Renal arteriogram: Pertinent clinical information: Left [...] guide wire was advanced centrally. A 5 Sinhala catheter was advanced with its distal tip [...] Saige Ashford Verified Date/Time: 201615:08:40 Reading Location: [place] [address] Angio Body Reading Room URINE [id number] 10:50:00 Test Item Value Reference Range Comments CULTURE (BEAKER) (test txnc=4424) No growth [id number] 10:38:00 Test Item Value Reference Range Comments PROTIME (BEAKER) (test ptnt=295) 17.5 seconds 11.7-14.7 INR (BEAKER) (test fjvu=152) 1.4 <=5.9 PARTIAL THROMBOPLASTIN TIME (BEAKER) (test 34.3 seconds 22.5-36.0 zsvk=791) RECOMMENDED COUMADIN/WARFARIN INR THERAPY RANGESSTANDARD DOSE: 2.0 - 3.0 Includes: PROPHYLAXIS forvenous thrombosis, systemic embolization; TREATMENT for venous thrombosis and/or pulmonary embolus.HIGH RISK: Target INR is 2.5-3.5 for patients with mechanical heart valves.CBC W/PLT COUNT & AUTO [id number] 08:42:00 Test Item Value Reference Range Comments WHITE BLOOD CELL COUNT 14.4 K/ L 3.5-10.5 (BEAKER) (test necv=324) RED BLOOD CELL COUNT (BEAKER) 2.45 M/ L 4.63-6.08 (test rckf=438) HEMOGLOBIN (BEAKER) (test 5.9 GM/DL 13.7-17.5 kfmn=499) HEMATOCRIT (BEAKER) (test 18.6 % 40.1-51.0 iqsz=007) MEAN CORPUSCULAR VOLUME 75.9 fL 79.0-92.2 (BEAKER) (test rvhx=379) MEAN CORPUSCULAR HEMOGLOBIN 24.1 pg 25.7-32.2 (BEAKER) (test wvey=628) MEAN CORPUSCULAR HEMOGLOBIN 31.7 GM/DL 32.3-36.5 CONC (BEAKER) (test ghpj=057) RED CELL DISTRIBUTION WIDTH 15.8 % 11.6-14.4 (BEAKER) (test nfgb=893) PLATELET COUNT (BEAKER) (test 112 K/CU MM 150-450 hmmc=973) MEAN PLATELET VOLUME (BEAKER) fL 9.4-12.4 Unable to report due to (test vrvj=718) abnormal Platelet population distribution. NUCLEATED RED BLOOD CELLS 0 /100 WBC 0-0 (BEAKER) (test oznm=677) NEUTROPHILS RELATIVE PERCENT 85 % (BEAKER) (test sjod=218) LYMPHOCYTES RELATIVE PERCENT 5 % (BEAKER) (test ltni=985) MONOCYTES RELATIVE PERCENT 9 % (BEAKER) (test ddch=764) EOSINOPHILS RELATIVE PERCENT 1 % (BEAKER) (test eytc=641) BASOPHILS RELATIVE PERCENT 0 % (BEAKER) (test dkzx=732) NEUTROPHILS ABSOLUTE COUNT 12.25 K/ L 1.78-5.38 (BEAKER) (test sbut=459) LYMPHOCYTES ABSOLUTE COUNT 0.76 K/ L 1.32-3.57 (BEAKER) (test dnbv=704) MONOCYTES ABSOLUTE COUNT 1.25 K/ L 0.30-0.82 (BEAKER) (test hony=684) EOSINOPHILS ABSOLUTE COUNT 0.08 K/ L 0.04-0.54 (BEAKER) (test xmlb=834) BASOPHILS ABSOLUTE COUNT 0.02 K/ L 0.01-0.08 (BEAKER) (test awyb=174) IMMATURE GRANULOCYTES-RELATIVE 1 % 0-1 PERCENT (BEAKER) (test ucnb=5975) BASIC METABOLIC [id number] 07:46:00 Test Item Value Reference Range Comments SODIUM (BEAKER) (test 140 meq/L 136-145 qybd=137) POTASSIUM (BEAKER) (test 3.9 meq/L 3.5-5.1 obcw=802) CHLORIDE (BEAKER) (test 107 meq/L 98-107 xlnh=564) CO2 (BEAKER) (test 24 meq/L 22-29 taah=748) BLOOD UREA NITROGEN 50 mg/dL 7-21 (BEAKER) (test mvbz=615) CREATININE (BEAKER) (test 3.68 mg/dL 0.57-1.25 rljg=885) GLUCOSE RANDOM (BEAKER) 110 mg/dL 70-105 (test ogci=195) CALCIUM (BEAKER) (test 7.2 mg/dL 8.4-10.2 wcqe=451) EGFR (BEAKER) (test 20 mL/min/1.73 sq m ESTIMATED GFR IS NOT ebfm=9808) ACCURATE CREATININE CLEARANCE IN PREDICTING GLOMERULAR FILTRATION RATE. ESTIMATED GFR IS NOT APPLICABLE FOR DIALYSIS PATIENTS. [id number] 07:41:00 Test Item Value Reference Range Comments PHOSPHORUS (BEAKER) (test potl=538) 3.5 mg/dL 2.3-4.7 [id number] 07:41:00 Test Item Value Reference Range Comments MAGNESIUM (BEAKER) (test ncbj=895) 1.8 mg/dL 1.6-2.6 POCT-GLUCOSE [id number] 07:13:00 Test Item Value Reference Range Comments POC-GLUCOSE METER (BEAKER) 124 mg/dL 70-110 TESTED AT [address] (test zjyi=0297) [facility] [address] CT, [id number] 00:22:00FINAL REPORT CT, ABDOMEN \T \ PELVIS, [...] MDReport Verified Date/Time: 10/23/2017 00:22:43 Reading Location: [address] Body Reading Room CREATINE KINASE (CK)2017-10-22 21 :31:00 Test Item Value Reference Range Comments CREATINE KINASE TOTAL (BEAKER) (test rkdk=109) 167 U/L 29-200 LACTIC ACID, VENOUS, WHOLE [id number] 21:24:00 Test Item Value Reference Range Comments LACTATE BLOOD VENOUS (2) (BEAKER) (test 0.8 mmol/L 0.5-2.2 rsxs=7393) Effective 03/15/2016: Units/Reference Range ChangeNew: 0.5-2.2 mmol/L Previous: 5 -20 mg/dLPOCT-GLUCOSE [id number] 21:23:00 Test Item Value Reference Range Comments POC-GLUCOSE METER (BEAKER) 130 mg/dL 70-[address] [facility] [address] (test fcxi=7550) [facility] [address] SODIUM, RANDOM [id number] 20:29:00 Test Item Value Reference Range Comments SODIUM URINE (BEAKER) (test vkfe=502) 24 meq/L Reference Range: No NormalsCREATININE, RANDOM [id number] 20:27:00 Test Item Value Reference Range Comments CREATININE URINE (BEAKER) (test jiui=554) 155.1 mg/dL Reference Range: No NormalsPROTEIN, RANDOM [id number] 20:27:00 Test Item Value Reference Range Comments PROTEIN, URINE (BEAKER) (test lwvy=4994) 60 mg/dL 0-14 URINALYSIS W/ [id number] 20:27:00 Test Item Value Reference Range Comments COLOR (BEAKER) (test pqwj=071) Yellow CLARITY (BEAKER) (test ayof=231) Hazy SPECIFIC GRAVITY UA (BEAKER) (test emri=000) 1.010 1.001-1.035 PH UA (BEAKER) (test wylz=003) 5.0 5.0-8.0 PROTEIN UA (BEAKER) (test kcww=120) 70 mg/dL Negative GLUCOSE UA (BEAKER) (test opry=568) Negative Negative KETONES UA (BEAKER) (test npvc=491) Negative Negative BILIRUBIN UA (BEAKER) (test qfnq=005) Negative Negative BLOOD UA (BEAKER) (test jyxr=887) Moderate Negative NITRITE UA (BEAKER) (test oszh=658) Negative Negative LEUKOCYTE ESTERASE UA (BEAKER) (test qysm=078) Large Negative UROBILINOGEN UA (BEAKER) (test jpoh=442) 0.2 mg/dL 0.2-1.0 RBC UA (BEAKER) (test xrry=397) 85 /HPF WBC UA (BEAKER) (test fstk=953) 0 /HPF BACTERIA (BEAKER) (test huuk=626) Many MUCUS (BEAKER) (test elxw=0458) Few SQUAMOUS EPITHELIAL (BEAKER) (test zmwh=661) 5 /HPF CASTS (BEAKER) (test vpjr=8982) 5 /LPF CRYSTALS, URINE (BEAKER) (test gtna=6365) Moderate YEAST (BEAKER) (test lizx=2718) Few SOURCE(BEAKER) (test mjbx=8591) Urine, Moody POCT-GLUCOSE [id number] 17:05:00 Test Item Value Reference Range Comments POC-GLUCOSE METER (BEAKER) 113 mg/dL 70-110 TESTED AT [address] (test uhtm=7182) [facility] [address] [id number] 16:24:00 Test Item Value Reference Range Comments PROSTATE SPECIFIC ANTIGEN (BEAKER) (test ornc=343) 0.0 ng/mL 0.0-4.0 POCT-GLUCOSE [id number] 11:21:00 Test Item Value Reference Range Comments POC-GLUCOSE METER (BEAKER) 146 mg/dL 70-110 TESTED AT [address] (test ttta=1683) [place] [id number] HEMOGLOBIN AND [id number] 11:19:00 Test Item Value Reference Range Comments HEMOGLOBIN (BEAKER) (test ckns=581) 6.4 GM/DL 13.7-17.5 HEMATOCRIT (BEAKER) (test zpku=748) 20.0 % 40.1-51.0 U/S, RENAL, [id number] 09:08:00Reason for exam:->left intraparenchymal hematoma on CTFINAL [...] MDReport Verified Date/Time: 10/22/2017 09:08:47 Reading Location: [facility] [id number] Ultrasound Reading Room POCT-GLUCOSE [id number] 08:05:00 Test Item Value Reference Range Comments POC-GLUCOSE METER (BEAKER) 154 mg/dL 70-[address] [facility] [address] [facility] (test dwtg=8962) [facility] [address] URINALYSIS W/ [id number] 07:56:00 Test Item Value Reference Range Comments COLOR (BEAKER) (test lawm=845) Yellow CLARITY (BEAKER) (test affw=965) Hazy SPECIFIC GRAVITY UA (BEAKER) (test riwp=147) 1.013 1.001-1.035 PH UA (BEAKER) (test nqga=481) 5.0 5.0-8.0 PROTEIN UA (BEAKER) (test kvtu=958) 100 mg/dL Negative GLUCOSE UA (BEAKER) (test vlgx=045) Negative Negative KETONES UA (BEAKER) (test kvqp=208) Negative Negative BILIRUBIN UA (BEAKER) (test weuy=021) Negative Negative BLOOD UA (BEAKER) (test aier=971) Moderate Negative NITRITE UA (BEAKER) (test vllp=828) Negative Negative LEUKOCYTE ESTERASE UA (BEAKER) (test oepr=969) Negative Negative UROBILINOGEN UA (BEAKER) (test faay=577) 0.2 mg/dL 0.2-1.0 RBC UA (BEAKER) (test sfyh=174) 13 /HPF WBC UA (BEAKER) (test mwtg=113) 1 /HPF BACTERIA (BEAKER) (test nmgs=183) Rare MUCUS (BEAKER) (test akky=0361) Rare SQUAMOUS EPITHELIAL (BEAKER) (test hcdz=923) 1 /HPF HYALINE CASTS (BEAKER) (test xujq=478) 3 /LPF AMORPHOUS CRYSTALS (BEAKER) (test tbze=0894) Rare SOURCE(BEAKER) (test tvco=3811) Urine, Voided COMPREHENSIVE METABOLIC [id number] 07:45:00 Test Item Value Reference Range Comments TOTAL PROTEIN (BEAKER) 6.2 gm/dL 6.0-8.3 (test qecp=037) ALBUMIN (BEAKER) (test 3.4 g/dL 3.5-5.0 kink=0285) ALKALINE PHOSPHATASE 53 U/L 40-150 (BEAKER) (test yqmk=741) BILIRUBIN TOTAL (BEAKER) 0.5 mg/dL 0.2-1.2 (test apeo=989) SODIUM (BEAKER) (test 141 meq/L 136-145 mnjg=589) POTASSIUM (BEAKER) (test 4.2 meq/L 3.5-5.1 qytc=827) CHLORIDE (BEAKER) (test 105 meq/L 98-107 irds=135) CO2 (BEAKER) (test 21 meq/L 22-29 znxk=340) BLOOD UREA NITROGEN 44 mg/dL 7-21 (BEAKER) (test oqyg=918) CREATININE (BEAKER) (test 4.16 mg/dL 0.57-1.25 bkql=584) GLUCOSE RANDOM (BEAKER) 121 mg/dL 70-105 (test cvpe=696) CALCIUM (BEAKER) (test 7.6 mg/dL 8.4-10.2 uidx=946) AST (SGOT) (BEAKER) (test 12 U/L 5-34 vwys=401) ALT (SGPT) (BEAKER) (test 7 U/L 6-55 gcar=857) EGFR (BEAKER) (test 17 mL/min/1.73 sq m ESTIMATED GFR IS NOT mhhw=6169) ACCURATE CREATININE CLEARANCE IN PREDICTING GLOMERULAR FILTRATION RATE. ESTIMATED GFR IS NOT APPLICABLE FOR DIALYSIS PATIENTS. CBC W/PLT COUNT & AUTO [id number] 05:44:00 Test Item Value Reference Range Comments WHITE BLOOD CELL COUNT (BEAKER) (test utey=263) 17.6 K/ L 3.5-10.5 RED BLOOD CELL COUNT (BEAKER) (test fvcn=986) 3.06 M/ L 4.63-6.08 HEMOGLOBIN (BEAKER) (test ksdp=875) 7.2 GM/DL 13.7-17.5 HEMATOCRIT (BEAKER) (test rppe=619) 22.7 % 40.1-51.0 MEAN CORPUSCULAR VOLUME (BEAKER) (test ofsl=808) 74.2 fL 79.0-92.2 MEAN CORPUSCULAR HEMOGLOBIN (BEAKER) (test 23.5 pg 25.7-32.2 dmpw=656) MEAN CORPUSCULAR HEMOGLOBIN CONC (BEAKER) (test 31.7 GM/DL 32.3-36.5 zevx=570) RED CELL DISTRIBUTION WIDTH (BEAKER) (test 15.2 % 11.6-14.4 sswq=287) PLATELET COUNT (BEAKER) (test obeb=036) 199 K/CU MM 150-450 MEAN PLATELET VOLUME (BEAKER) (test wcam=940) 13.8 fL 9.4-12.4 NUCLEATED RED BLOOD CELLS (BEAKER) (test 0 /100 WBC 0-0 neeu=456) NEUTROPHILS RELATIVE PERCENT (BEAKER) (test 88 % hyzl=657) LYMPHOCYTES RELATIVE PERCENT (BEAKER) (test 5 % gzvn=386) MONOCYTES RELATIVE PERCENT (BEAKER) (test 6 % edgw=534) EOSINOPHILS RELATIVE PERCENT (BEAKER) (test 0 % cuhi=877) BASOPHILS RELATIVE PERCENT (BEAKER) (test 0 % fgwj=801) NEUTROPHILS ABSOLUTE COUNT (BEAKER) (test 15.47 K/ L 1.78-5.38 cyki=849) LYMPHOCYTES ABSOLUTE COUNT (BEAKER) (test 0.88 K/ L 1.32-3.57 dgbp=634) MONOCYTES ABSOLUTE COUNT (BEAKER) (test 1.12 K/ L 0.30-0.82 yind=521) EOSINOPHILS ABSOLUTE COUNT (BEAKER) (test 0.00 K/ L 0.04-0.54 ssrn=645) BASOPHILS ABSOLUTE COUNT (BEAKER) (test 0.02 K/ L 0.01-0.08 lnij=681) IMMATURE GRANULOCYTES-RELATIVE PERCENT (BEAKER) 1 % 0-1 (test tqzn=6245) POCT-GLUCOSE [id number] 22:09:00 Test Item Value Reference Range Comments POC-GLUCOSE METER (BEAKER) 165 mg/dL 70-[address] [facility] [address] [facility] (test lbsk=8427) [place] [id number] 16:51:00 Test Item Value Reference Range Comments PROTIME (BEAKER) (test mdtd=518) 17.9 seconds 11.7-14.7 INR (BEAKER) (test esxf=558) 1.5 <=5.9 PARTIAL THROMBOPLASTIN TIME (BEAKER) (test 23.0 seconds 22.5-36.0 dptp=008) RECOMMENDED COUMADIN/WARFARIN INR THERAPY RANGESSTANDARD DOSE: 2.0 - 3.0 Includes: PROPHYLAXIS forvenous thrombosis, systemic embolization; TREATMENT for venous thrombosis and/or pulmonary embolus.HIGH RISK: Target INR is 2.5-3.5 for patients with mechanical heart valves.POCT-GLUCOSE [id number] 16:36:00 Test Item Value Reference Range Comments POC-GLUCOSE METER (BEAKER) 222 mg/dL 70-[address] [facility] [address] (test cqks=6757) [facility] [address]
[2019-11-11 12:17] LABS: Basophils % 0.7 % (0-1.3); Hematocrit 35.7 % (39.6-49.0); Lymphocytes % 12.4 % (15.3-44.8); MPV 9.8 fL (7.6-11.3)
[2019-11-11 12:21] LABS: Protime INR 1.02
[2019-11-11 12:24] LABS: Potassium 4.7 mmol/L (3.5-5.1)
[2019-11-11 12:46] LABS: Anisocytosis 1+; Blood Morphology Comment NOTED (NOT SEEN); Platelet Estimate ADEQ
[2019-11-11] MEDS ORDERED: cloNIDine HCL 0.1 MG TAB ONE (12:46)
[2019-11-11 12:47] LABS: Elliptocytes 1+; Poikilocytosis 1+
[2019-11-11] MEDS ORDERED: ALTEPLASE 2 MG/VIAL IV ONE ×4 (13:00)
--- NOTE | 2019-11-11 13:11 | RAD REPORT ---
EXAM DESCRIPTION: RAD - Chest Single View - 11/11/2019 12:27 pm CLINICAL HISTORY: Chest pain, failed dialysis catheter COMPARISON: August 19 TECHNIQUE: AP portable chest image was obtained 1223 hours . FINDINGS: Right-sided dialysis catheter is in place. There is no abnormal bend or kink of the tubing . Hazy opacification left base is believed be artifact of shallow inspiration and portable imaging. Lef t base infiltrate is unlikely. Lung landin are otherwise clear. No failure or volume overload. Heart size is normal range and stable. No measurable pleural effusion and no pneumothorax. No acute bony ab normality seen. No acute aortic findings suspected. IMPRESSION: No abnormality identifiable in the right-side dialysis catheter. No acute chest finding.
--- NOTE | 2019-11-11 13:16 | ER ---
Nurse's Notes [facility] Name: Steve Lopez Jr Age: 78 yrs Sex: Male : 1940 Arrival Date: 11/11/2019 Time: 11:18 Bed 17 Private MD: Sebastian Roth T Diagnosis: Encounter for fitting and adjustment of extracorporeal dialysis catheter Presentation: 11/11 11:30 Presenting complaint: Patient states: "I have a dialysis catheter and its not aj1 functioning like its suppose to" Patient reports that he had dialysis Sunday and it was not working, he has not had dialysis since last . Transition of care: patient was not received from another setting of care. Onset of symptoms was 2018. Risk Assessment: Do you want to hurt yourself or someone else? Patient reports no desire to harm self or others. Initial Sepsis Screen: Does the patient meet any 2 criteria? No. Patient's initial sepsis screen is negative. Does the patient have a suspected source of infection? No. Patient's initial sepsis screen is negative. Care prior to arrival: None. 11:30 Method Of Arrival: Ambulatory aj 11:30 Acuity: NATHANIEL 3 aj1 Triage Assessment: 11:34 General: Appears in no apparent distress. comfortable, Behavior is calm, cooperative, aj1 appropriate for age. Pain: Denies pain. Neuro: Level of Consciousness is awake, alert, obeys commands. Cardiovascular: Patient's skin is warm and dry. Respiratory: Airway is patent Respiratory effort is even, unlabored, Respiratory pattern is regular, symmetrical. Historical: - Allergies: 11:34 No Known Allergies; aj1 - Home Meds: 11:34 clonidine HCl 0.3 mg Oral tab 1 tab three times a day [Active]; atorvastatin 10 mg Oral aj1 tab 1 tab once daily [Active]; calcitriol 0.25 mcg oral cap 1 cap once daily [Active]; carvedilol 6.25 mg Oral tab 1 tab 2 times per day [Active]; doxazosin 2 mg oral tab 1 tab once daily [Active]; - PMHx: 11:34 Diabetes - IDDM; Glaucoma; heart attack; Hypertension; kidney disease; Prostate Cancer; aj1 - Immunization history:: Flu vaccine is up to date. - Social history:: Smoking status: Patient/guardian denies using tobacco. - Ebola Screening: : Patient denies travel to an Ebola-affected area in the 21 days before illness onset. - Family history:: not pertinent. - Hospitalizations: : Patient was recently seen at. Screenin:45 Abuse screen: Denies threats or abuse. Denies injuries from another. Nutritional ss screening: No deficits noted. Tuberculosis screening: Never had TB. Fall Risk None identified. Assessment: 11:45 General: Appears in no apparent distress. comfortable, Behavior is calm, cooperative. ss Pain: Denies pain. Neuro: Level of Consciousness is awake, alert, obeys commands, Oriented to person, place, time, situation. Cardiovascular: dialysis catheter noted to R anterior chest wall. Pt reports he had this catheter placed 3 weeks ago. Pt attempted to have dialysis session last Sunday, of which the staff members told him it was not working properly. Pt was told that they would have the place in [facility] where he had the procedure to place the catheter call him with an appointment to come in and have it replaced/ fixed. Pt states that he had the phone by him constantly, but no body had ever called him. Facility had told patient that they could not get ahold of him. . Pulses are palpable in right radial artery, right posterior tibial artery, left radial artery and left posterior tibial artery. Respiratory: Airway is patent Respiratory effort is even, unlabored, Respiratory pattern is regular, symmetrical. GI: No signs and/or symptoms were reported involving the gastrointestinal system. Patient currently denies abdominal pain, diarrhea, nausea, vomiting. EENT: Nares are clear Oral mucosa is moist. Derm: Skin is intact, is healthy with good turgor, Skin is dry, Skin is pink, warm \\T\\ dry. normal. Musculoskeletal: Circulation, motion, and sensation intact. Range of motion: intact in all extremities, Swelling absent. 12:46 Reassessment: Dr. Singer notified of BP 226/77. Pt reports he is about due to take one ss of his scheduled 0.[address] Singer reports to go ahead and let patient take his home medication at this time. 13:37 Reassessment: Dr. Singer okay with discharge as Catheter is functional prior to Cathflo ss administration and also BP is still reading 220's/70's despite Clonidine administration. Pt verbalizes understanding that he is to go straight to dialysis after discharge. Vital Signs: 11:34 Pulse 50; Resp 18; Temp 99.3; Pulse Ox 98% on R/A; Weight 86.18 kg; Height 5 ft. 10 in. aj1 (177.80 cm) (R); Pain 0/10; 12:40 BP 226 / 77; ss 11:34 Body Mass Index 27.26 (86.18 kg, 177.80 cm) aj1 ED Course: 11:18 Patient arrived in ED. as 11:19 Sebastian Roth MD is Private Physician. as 11:32 Triage completed. aj1 11:34 Arm band placed on Patient placed in an exam room. aj1 11:37 Mart Singer MD is Attending Physician. rn 11:45 Patient has correct armband on for positive identification. Bed in low position. Call ss light in reach. 11:48 Ariella Rose, LUIS A is Primary Nurse. ss 12:00 Inserted saline lock: 22 gauge in right antecubital area, using aseptic technique. ss Blood collected. Patient maintains SpO2 saturation greater than 95% on room air. 12:25 XRAY Chest (1 view) In Process Unspecified. EDMS 13:37 No provider procedures requiring assistance completed. IV discontinued, intact, ss bleeding controlled, No redness/swelling at site. Pressure dressing applied. Administered Medications: 13:37 Not Given (catheter is funcitonal prior to administration): Cathflo Activase 2 mg IV ss Thrombolytics once; into each catheter lumen, may repeat once Outcome: 13:16 Discharge ordered by . rn 13:37 Discharged to home ambulatory. ss 13:37 Condition: good 13:37 Discharge instructions given to patient, Instructed on discharge instructions, follow up and referral plans. Demonstrated understanding of instructions, follow-up care. 13:39 Patient left the ED. Signatures: Dispatcher [employer] EDMS Tammy Raymundo RN RN aj1 Lucia Royal as Mart Singer MD MD rn Smirch, Shelby, RN RN
--- NOTE | 2019-11-11 13:17 | EDPHYS ---
Physician Documentation [facility] Name: Steve Lopez Jr Age: 78 yrs Sex: Male : 1940 Arrival Date: 11/11/2019 Time: 11:18 Bed 17 Private MD: Sebastian Roth T ED Physician Mart Singer HPI: 11/11 11:42 This 78 yrs old Black Male presents to ER via Ambulatory with complaints of Port needs rn replacement. 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 . Onset: The symptoms/episode began/occurred 5 day(s) ago. Severity of symptoms: At their worst the symptoms were in the emergency department the symptoms are unchanged. The patient has experienced similar episodes in the past. Historical: - Allergies: 11:34 No Known Allergies; aj1 - Home Meds: 11:34 clonidine HCl 0.3 mg Oral tab 1 tab three times a day [Active]; atorvastatin 10 mg Oral aj1 tab 1 tab once daily [Active]; calcitriol 0.25 mcg oral cap 1 cap once daily [Active]; carvedilol 6.25 mg Oral tab 1 tab 2 times per day [Active]; doxazosin 2 mg oral tab 1 tab once daily [Active]; - PMHx: 11:34 Diabetes - IDDM; Glaucoma; heart attack; Hypertension; kidney disease; Prostate Cancer; aj1 - Immunization history:: Flu vaccine is up to date. - Social history:: Smoking status: Patient/guardian denies using tobacco. - Ebola Screening: : Patient denies travel to an Ebola-affected area in the 21 days before illness onset. - Family history:: not pertinent. - Hospitalizations: : Patient was recently seen at. ROS: 11:42 Constitutional: Negative for fever, chills, and weight loss, Eyes: Negative for injury, rn pain, redness, and discharge, Neck: Negative for injury, pain, and swelling, Cardiovascular: Negative for chest pain, palpitations, and edema, Respiratory: Negative for shortness of breath, cough, wheezing, and pleuritic chest pain, Abdomen/GI: Negative for abdominal pain, nausea, vomiting, diarrhea, and constipation, MS/Extremity: Negative for injury and deformity, Skin: Negative for injury, rash, and discoloration, Neuro: Negative for headache, weakness, numbness, tingling, and seizure. Exam: 11:42 Constitutional: This is a well developed, well nourished patient who is awake, alert, rn and in no acute distress. Ambulatory to room without difficulty or assistance. Head/Face: Normocephalic, atraumatic. ENT: MMM Chest/axilla: Right anterior dialysis catheter in place, not displaced, no erythema or drainage Cardiovascular: Bradycardic, regular Respiratory: No increased work of breathing, no retractions or nasal flaring. Abdomen/GI: soft, non-tender MS/ Extremity: Pulses equal, no cyanosis. Neurovascular intact. Full, normal range of motion. Equal circumference. Neuro: Awake and alert, GCS 15, oriented to person, place, time, and situation. Cranial nerves II-XII grossly intact. Motor strength 5/5 in all extremities. Sensory grossly intact. Cerebellar exam normal. Normal gait. Vital Signs: 11:34 Pulse 50; Resp 18; Temp 99.3; Pulse Ox 98% on R/A; Weight 86.18 kg; Height 5 ft. 10 in. aj1 (177.80 cm) (R); Pain 0/10; 12:40 BP 226 / 77; ss 11:34 Body Mass Index 27.26 (86.18 kg, 177.80 cm) aj1 MDM: 11:37 Patient medically screened. rn 13:13 ED course: CXR shows normal positioning. . rn 13:14 Differential Diagnosis catheter malfunction or displacement, obstruction. Data rn reviewed: vital signs, nurses notes, lab test result(s), radiologic studies, plain films, and as a result, I will discharge patient. Test interpretation: by ED physician or midlevel provider: plain radiologic studies, CXR shows normal positioning of dialysis catheter.. Counseling: I had a detailed discussion with the patient and/or guardian regarding: the historical points, exam findings, and any diagnostic results supporting the discharge/admit diagnosis, lab results, radiology results, the need for outpatient follow up, to return to the emergency department if symptoms worsen or persist or if there are any questions or concerns that arise at home. Response to treatment: the patient's symptoms have resolved after treatment, the patient's condition has returned to base line, and as a result, I will discharge patient. ED course: Cathflo not necessary, RN pulled and flushed easily, now working normally, will dc home to f/u with dialysis. . 11/11 11:47 Order name: CBC with Diff; Complete Time: 13:06 rn 11/11 11:47 Order name: Basic Metabolic Panel; Complete Time: 12:34 rn 11/11 11:41 Order name: XRAY Chest (1 view); Complete Time: 13:13 rn 11/11 11:47 Order name: Protime (+inr); Complete Time: 12:34 rn 11/11 11:47 Order name: Ptt, Activated; Complete Time: 12:34 rn 11/11 12:47 Order name: Manual Differential; Complete Time: 13:06 EDVT 11/11 11:47 Order name: IV Start; Complete Time: 12:00 rn Administered Medications: 13:37 Not Given (catheter is funcitonal prior to administration): Cathflo Activase 2 mg IV ss Thrombolytics once; into each catheter lumen, may repeat once Disposition: 11/11/19 13:16 Discharged to Home. Impression: Encounter for fitting and adjustment of extracorporeal dialysis catheter. - Condition is Stable. - Discharge Instructions: Dialysis. - Medication Reconciliation Form, Thank You Letter, Antibiotic Education, Prescription Opioid Use form. - Follow up: Private Physician; When: As needed; Reason: Recheck today's complaints, Re-evaluation by your physician. - Problem is new. - Symptoms are resolved. Signatures: Dispatcher [employer] Tammy Muniz RN RN aj1 Mart Singer MD MD rn Smirch, Shelby, RN RN ss Corrections: (The following items were deleted from the chart) 13:39 13:16 11/11/2019 13:16 Discharged to Home. Impression: Encounter for fitting and ss adjustment of extracorporeal dialysis catheter. Condition is Stable. Forms are Medication Reconciliation Form, Thank You Letter, Antibiotic Education, Prescription Opioid Use. Follow up: Private Physician; When: As needed; Reason: Recheck today's complaints, Re-evaluation by your physician. Problem is new. Symptoms are resolved. rn
[2019-11-11] MEDS ORDERED: HEPARIN 500 UNIT/5 ML SYR IV ONE (13:19)
[2019-11-11 13:47] VITALS: TEMP 99.3; O2SAT 98
[2019-11-11 13:48] VITALS: BP 226/77
== END 2019-11-11 13:39 | disposition home or self-care (01) ==
LOC: ER 11:17
DX: Z49.01 Encounter for fitting and adjustment of extracorporeal dialysis catheter (principal); E11.22 Type 2 diabetes mellitus with diabetic chronic kidney disease; I12.0 Hypertensive chronic kidney disease with stage 5 chronic kidney disease or end stage renal disease; N18.6 End stage renal disease; Z99.2 Dependence on renal dialysis
CPT/HCPCS: 85025; 80048; 36415; 85610; 85730; 71045; 99284; J2997 ×3; J1642

== ENCOUNTER 2019-11-12 13:51 | Emergency (ER) | payer OTHER ==
--- OUTSIDE RECORDS SUMMARY | 2019-11-12 13:54 | XMS REPORT ---
:1940 [facility] Address [address] [place] [address] Care Team Providers Name Role Phone BANDAR MOORE Unavailable Unavailable Problems This patient has no known problems. Allergies, Adverse Reactions, Alerts This patient has no known allergies or adverse reactions. Medications This patient has no known medications. Results Test Description Test Time Test Comments Text Results Atomic Results Result Comments BLOOD CULTURE 2017-10-27 10:00:00 Test Item Value Reference Range Comments CULTURE (BEAKER) (test kbys=9799) No growth in 5 days BLOOD [id number] 10:00:00 Test Item Value Reference Range Comments CULTURE (BEAKER) (test enfs=8789) No growth in 5 days POCT-GLUCOSE [id number] 12:18:00 Test Item Value Reference Range Comments POC-GLUCOSE METER (BEAKER) 181 mg/dL 70-110 TESTED AT [address] (test xzqg=0152) [place] [id number] POCT-GLUCOSE [id number] 08:05:00 Test Item Value Reference Range Comments POC-GLUCOSE METER (BEAKER) 143 mg/dL 70-110 TESTED AT [address] (test ovod=9457) [place] [id number] BASIC METABOLIC [id number] 06:08:00 Test Item Value Reference Range Comments SODIUM (BEAKER) (test 139 meq/L 136-145 kvfq=920) POTASSIUM (BEAKER) (test 4.3 meq/L 3.5-5.1 feqr=703) CHLORIDE (BEAKER) (test 107 meq/L 98-107 cydj=279) CO2 (BEAKER) (test 23 meq/L 22-29 vsxu=990) BLOOD UREA NITROGEN 40 mg/dL 7-21 (BEAKER) (test yvcd=990) CREATININE (BEAKER) (test 2.56 mg/dL 0.57-1.25 xxis=078) GLUCOSE RANDOM (BEAKER) 150 mg/dL 70-105 (test pktk=614) CALCIUM (BEAKER) (test 7.7 mg/dL 8.4-10.2 mqij=925) EGFR (BEAKER) (test 30 mL/min/1.73 sq m ESTIMATED GFR IS NOT ipdw=7728) ACCURATE CREATININE CLEARANCE IN PREDICTING GLOMERULAR FILTRATION RATE. ESTIMATED GFR IS NOT APPLICABLE FOR DIALYSIS PATIENTS. [id number] 06:03:00 Test Item Value Reference Range Comments PHOSPHORUS (BEAKER) (test umqp=523) 3.4 mg/dL 2.3-4.7 [id number] 06:03:00 Test Item Value Reference Range Comments MAGNESIUM (BEAKER) (test nwpa=024) 1.9 mg/dL 1.6-2.6 CBC W/PLT COUNT & AUTO [id number] 05:38:00 Test Item Value Reference Range Comments WHITE BLOOD CELL COUNT (BEAKER) (test xail=156) 9.4 K/ L 3.5-10.5 RED BLOOD CELL COUNT (BEAKER) (test dkww=607) 2.93 M/ L 4.63-6.08 HEMOGLOBIN (BEAKER) (test epzc=994) 7.4 GM/DL 13.7-17.5 HEMATOCRIT (BEAKER) (test htgb=478) 23.0 % 40.1-51.0 MEAN CORPUSCULAR VOLUME (BEAKER) (test psgg=340) 78.5 fL 79.0-92.2 MEAN CORPUSCULAR HEMOGLOBIN (BEAKER) (test 25.3 pg 25.7-32.2 sqkb=194) MEAN CORPUSCULAR HEMOGLOBIN CONC (BEAKER) (test 32.2 GM/DL 32.3-36.5 yanf=008) RED CELL DISTRIBUTION WIDTH (BEAKER) (test 17.5 % 11.6-14.4 djmy=970) PLATELET COUNT (BEAKER) (test wrhu=738) 168 K/CU MM 150-450 MEAN PLATELET VOLUME (BEAKER) (test kksn=782) 12.2 fL 9.4-12.4 NUCLEATED RED BLOOD CELLS (BEAKER) (test 0 /100 WBC 0-0 ikqr=308) NEUTROPHILS RELATIVE PERCENT (BEAKER) (test 82 % yfcf=509) LYMPHOCYTES RELATIVE PERCENT (BEAKER) (test 7 % qwvp=413) MONOCYTES RELATIVE PERCENT (BEAKER) (test 9 % zdzj=626) EOSINOPHILS RELATIVE PERCENT (BEAKER) (test 2 % onzv=438) BASOPHILS RELATIVE PERCENT (BEAKER) (test 0 % xjyf=157) NEUTROPHILS ABSOLUTE COUNT (BEAKER) (test 7.65 K/ L 1.78-5.38 xtdr=519) LYMPHOCYTES ABSOLUTE COUNT (BEAKER) (test 0.65 K/ L 1.32-3.57 qukt=681) MONOCYTES ABSOLUTE COUNT (BEAKER) (test 0.88 K/ L 0.30-0.82 ccpg=984) EOSINOPHILS ABSOLUTE COUNT (BEAKER) (test 0.14 K/ L 0.04-0.54 jncg=902) BASOPHILS ABSOLUTE COUNT (BEAKER) (test 0.02 K/ L 0.01-0.08 crtm=918) IMMATURE GRANULOCYTES-RELATIVE PERCENT (BEAKER) 0 % 0-1 (test qutv=9971) CALCIUM, [id number] 05:36:00 Test Item Value Reference Range Comments CALCIUM IONIZED (BEAKER) (test wnmk=568) 0.89 mmol/L 1.12-1.27 PH, BLOOD (BEAKER) (test ezbs=0894) 7.54 POCT-GLUCOSE [id number] 21:59:00 Test Item Value Reference Range Comments POC-GLUCOSE METER (BEAKER) 184 mg/dL 70-110 TESTED AT [address] (test fsfu=2358) [place] [id number] POCT-GLUCOSE [id number] 17:35:00 Test Item Value Reference Range Comments POC-GLUCOSE METER (BEAKER) 130 mg/dL 70-110 TESTED AT [address] (test rbwg=1411) [facility] [address] POCT-GLUCOSE [id number] 11:42:00 Test Item Value Reference Range Comments POC-GLUCOSE METER (BEAKER) 161 mg/dL 70-110 TESTED AT [address] (test nqpr=9173) [place] [id number] POCT-GLUCOSE [id number] 10:42:00 Test Item Value Reference Range Comments POC-GLUCOSE METER (BEAKER) 172 mg/dL 70-110 TESTED AT [address] (test blab=0243) [place] [id number] CBC W/PLT COUNT & AUTO [id number] 09:06:00 Test Item Value Reference Range Comments WHITE BLOOD CELL COUNT (BEAKER) (test qwrf=200) 10.7 K/ L 3.5-10.5 RED BLOOD CELL COUNT (BEAKER) (test pucl=693) 3.06 M/ L 4.63-6.08 HEMOGLOBIN (BEAKER) (test nzkq=249) 7.7 GM/DL 13.7-17.5 HEMATOCRIT (BEAKER) (test tuxk=301) 23.7 % 40.1-51.0 MEAN CORPUSCULAR VOLUME (BEAKER) (test mkcs=378) 77.5 fL 79.0-92.2 MEAN CORPUSCULAR HEMOGLOBIN (BEAKER) (test 25.2 pg 25.7-32.2 tplr=974) MEAN CORPUSCULAR HEMOGLOBIN CONC (BEAKER) (test 32.5 GM/DL 32.3-36.5 lkqi=588) RED CELL DISTRIBUTION WIDTH (BEAKER) (test 17.0 % 11.6-14.4 waef=765) PLATELET COUNT (BEAKER) (test qjjo=953) 154 K/CU MM 150-450 MEAN PLATELET VOLUME (BEAKER) (test kxgb=041) 12.5 fL 9.4-12.4 NUCLEATED RED BLOOD CELLS (BEAKER) (test 0 /100 WBC 0-0 qyjk=207) NEUTROPHILS RELATIVE PERCENT (BEAKER) (test 85 % jfbs=239) LYMPHOCYTES RELATIVE PERCENT (BEAKER) (test 6 % dhov=186) MONOCYTES RELATIVE PERCENT (BEAKER) (test 8 % fghs=005) EOSINOPHILS RELATIVE PERCENT (BEAKER) (test 1 % spef=999) BASOPHILS RELATIVE PERCENT (BEAKER) (test 0 % rmnt=470) NEUTROPHILS ABSOLUTE COUNT (BEAKER) (test 9.05 K/ L 1.78-5.38 uorr=807) LYMPHOCYTES ABSOLUTE COUNT (BEAKER) (test 0.63 K/ L 1.32-3.57 ufjj=125) MONOCYTES ABSOLUTE COUNT (BEAKER) (test 0.88 K/ L 0.30-0.82 sunq=310) EOSINOPHILS ABSOLUTE COUNT (BEAKER) (test 0.06 K/ L 0.04-0.54 plld=601) BASOPHILS ABSOLUTE COUNT (BEAKER) (test 0.01 K/ L 0.01-0.08 mukz=284) IMMATURE GRANULOCYTES-RELATIVE PERCENT (BEAKER) 1 % 0-1 (test idvq=7299) BASIC METABOLIC [id number] 08:20:00 Test Item Value Reference Range Comments SODIUM (BEAKER) (test 142 meq/L 136-145 aaez=191) POTASSIUM (BEAKER) (test 4.0 meq/L 3.5-5.1 whov=759) CHLORIDE (BEAKER) (test 108 meq/L 98-107 mwwv=645) CO2 (BEAKER) (test 25 meq/L 22-29 bgbg=494) BLOOD UREA NITROGEN 41 mg/dL 7-21 (BEAKER) (test jmgq=199) CREATININE (BEAKER) (test 2.65 mg/dL 0.57-1.25 lpwm=552) GLUCOSE RANDOM (BEAKER) 132 mg/dL 70-105 (test hvpp=284) CALCIUM (BEAKER) (test 7.8 mg/dL 8.4-10.2 xesq=202) EGFR (BEAKER) (test 29 mL/min/1.73 sq m ESTIMATED GFR IS NOT ujgy=1669) ACCURATE CREATININE CLEARANCE IN PREDICTING GLOMERULAR FILTRATION RATE. ESTIMATED GFR IS NOT APPLICABLE FOR DIALYSIS PATIENTS. [id number] 07:57:00 Test Item Value Reference Range Comments PHOSPHORUS (BEAKER) (test ozuu=666) 3.2 mg/dL 2.3-4.7 [id number] 07:57:00 Test Item Value Reference Range Comments MAGNESIUM (BEAKER) (test keun=983) 1.7 mg/dL 1.6-2.6 CALCIUM, [id number] 07:40:00 Test Item Value Reference Range Comments CALCIUM IONIZED (BEAKER) (test bqhg=140) 0.95 mmol/L 1.12-1.27 PH, BLOOD (BEAKER) (test yojy=1385) 7.53 POCT-GLUCOSE [id number] 21:39:00 Test Item Value Reference Range Comments POC-GLUCOSE METER (BEAKER) 138 mg/dL 70-110 TESTED AT [facility] [address] [facility] (test pvhr=2596) [facility] [address] POCT-GLUCOSE [id number] 18:16:00 Test Item Value Reference Range Comments POC-GLUCOSE METER (BEAKER) 158 mg/dL 70-110 TESTED AT [facility] [address] [facility] (test phba=4221) [facility] [address] POCT-GLUCOSE [id number] 12:07:00 Test Item Value Reference Range Comments POC-GLUCOSE METER (BEAKER) 153 mg/dL 70-110 TESTED AT [facility] [address] [facility] (test tugh=9502) [facility] [address] POCT-GLUCOSE [id number] 08:12:00 Test Item Value Reference Range Comments POC-GLUCOSE METER (BEAKER) 133 mg/dL 70-110 TESTED AT [place] [id number] [facility] (test cuki=0051) [facility] [address] BASIC METABOLIC [id number] 05:25:00 Test Item Value Reference Range Comments SODIUM (BEAKER) (test 142 meq/L 136-145 hwty=049) POTASSIUM (BEAKER) (test 4.0 meq/L 3.5-5.1 yhci=670) CHLORIDE (BEAKER) (test 109 meq/L 98-107 vqvx=328) CO2 (BEAKER) (test 24 meq/L 22-29 huzv=687) BLOOD UREA NITROGEN 47 mg/dL 7-21 (BEAKER) (test grok=167) CREATININE (BEAKER) (test 3.13 mg/dL 0.57-1.25 ichv=346) GLUCOSE RANDOM (BEAKER) 130 mg/dL 70-105 (test mnir=578) CALCIUM (BEAKER) (test 7.6 mg/dL 8.4-10.2 qiws=877) EGFR (BEAKER) (test 24 mL/min/1.73 sq m ESTIMATED GFR IS NOT lfos=5464) ACCURATE CREATININE CLEARANCE IN PREDICTING GLOMERULAR FILTRATION RATE. ESTIMATED GFR IS NOT APPLICABLE FOR DIALYSIS PATIENTS. CALCIUM, [id number] 05:23:00 Test Item Value Reference Range Comments CALCIUM IONIZED (BEAKER) (test pxgj=907) 0.88 mmol/L 1.12-1.27 PH, BLOOD (BEAKER) (test zxra=6369) 7.50 [id number] 05:22:00 Test Item Value Reference Range Comments PHOSPHORUS (BEAKER) (test uwmm=148) 3.7 mg/dL 2.3-4.7 [id number] 05:22:00 Test Item Value Reference Range Comments MAGNESIUM (BEAKER) (test ivfp=838) 1.8 mg/dL 1.6-2.6 CBC W/PLT COUNT & AUTO [id number] 05:10:00 Test Item Value Reference Range Comments WHITE BLOOD CELL COUNT (BEAKER) (test ntcv=407) 12.5 K/ L 3.5-10.5 RED BLOOD CELL COUNT (BEAKER) (test yivo=907) 2.83 M/ L 4.63-6.08 HEMOGLOBIN (BEAKER) (test nqdb=177) 7.2 GM/DL 13.7-17.5 HEMATOCRIT (BEAKER) (test jqsk=979) 22.2 % 40.1-51.0 MEAN CORPUSCULAR VOLUME (BEAKER) (test cltx=704) 78.4 fL 79.0-92.2 MEAN CORPUSCULAR HEMOGLOBIN (BEAKER) (test 25.4 pg 25.7-32.2 pmop=601) MEAN CORPUSCULAR HEMOGLOBIN CONC (BEAKER) (test 32.4 GM/DL 32.3-36.5 oqgb=636) RED CELL DISTRIBUTION WIDTH (BEAKER) (test 16.4 % 11.6-14.4 sjpz=120) PLATELET COUNT (BEAKER) (test xnia=098) 128 K/CU MM 150-450 MEAN PLATELET VOLUME (BEAKER) (test tvso=560) 12.1 fL 9.4-12.4 NUCLEATED RED BLOOD CELLS (BEAKER) (test 0 /100 WBC 0-0 mdlj=714) NEUTROPHILS RELATIVE PERCENT (BEAKER) (test 86 % qdxi=458) LYMPHOCYTES RELATIVE PERCENT (BEAKER) (test 5 % pfst=105) MONOCYTES RELATIVE PERCENT (BEAKER) (test 8 % sdcw=675) EOSINOPHILS RELATIVE PERCENT (BEAKER) (test 0 % chne=324) BASOPHILS RELATIVE PERCENT (BEAKER) (test 0 % evmv=366) NEUTROPHILS ABSOLUTE COUNT (BEAKER) (test 10.79 K/ L 1.78-5.38 fhqk=930) LYMPHOCYTES ABSOLUTE COUNT (BEAKER) (test 0.61 K/ L 1.32-3.57 dfwz=218) MONOCYTES ABSOLUTE COUNT (BEAKER) (test 0.96 K/ L 0.30-0.82 bhhs=728) EOSINOPHILS ABSOLUTE COUNT (BEAKER) (test 0.05 K/ L 0.04-0.54 bfjq=808) BASOPHILS ABSOLUTE COUNT (BEAKER) (test 0.02 K/ L 0.01-0.08 eble=125) IMMATURE GRANULOCYTES-RELATIVE PERCENT (BEAKER) 0 % 0-1 (test vbzc=2624) HEMOGLOBIN AND [id number] 00:40:00 Test Item Value Reference Range Comments HEMOGLOBIN (BEAKER) (test pvvu=901) 7.1 GM/DL 13.7-17.5 HEMATOCRIT (BEAKER) (test ldpl=960) 21.6 % 40.1-51.0 Send specimen after 2 units PRBC transfusion is completedPOCT-GLUCOSE [id number] 21:20:00 Test Item Value Reference Range Comments POC-GLUCOSE METER (BEAKER) 114 mg/dL 70-110 TESTED AT [address] (test lfnt=0837) [place] [address] POCT-GLUCOSE [id number] 17:14:00 Test Item Value Reference Range Comments POC-GLUCOSE METER (BEAKER) 92 mg/dL 70-110 TESTED AT [address] (test anfm=6898) [place] [address] ANG, EMBOLIZATION, EXTENSIVE - [id number] 15:08:00Reason for exam:-> left kidney intraparenchymal hemorrhageReason for exam:->please review filmsand consider embolization, please call Dr Duke with urology to discuss- [phone] REPORT Renal arteriogram: Pertinent clinical information: Left [...] guide wire was advanced centrally. A 5 [place] catheter was advanced with its distal tip [...] Saige Ashford Verified Date/Time: 201615:08:40 Reading Location: [place] [address] Angio Body Reading Room URINE [id number] 10:50:00 Test Item Value Reference Range Comments CULTURE (BEAKER) (test nppc=0258) No growth [id number] 10:38:00 Test Item Value Reference Range Comments PROTIME (BEAKER) (test pzvy=052) 17.5 seconds 11.7-14.7 INR (BEAKER) (test lpep=021) 1.4 <=5.9 PARTIAL THROMBOPLASTIN TIME (BEAKER) (test 34.3 seconds 22.5-36.0 wijx=775) RECOMMENDED COUMADIN/WARFARIN INR THERAPY RANGESSTANDARD DOSE: 2.0 - 3.0 Includes: PROPHYLAXIS forvenous thrombosis, systemic embolization; TREATMENT for venous thrombosis and/or pulmonary embolus.HIGH RISK: Target INR is 2.5-3.5 for patients with mechanical heart valves.CBC W/PLT COUNT & AUTO [id number] 08:42:00 Test Item Value Reference Range Comments WHITE BLOOD CELL COUNT 14.4 K/ L 3.5-10.5 (BEAKER) (test rmwy=150) RED BLOOD CELL COUNT (BEAKER) 2.45 M/ L 4.63-6.08 (test djjt=740) HEMOGLOBIN (BEAKER) (test 5.9 GM/DL 13.7-17.5 dzbn=526) HEMATOCRIT (BEAKER) (test 18.6 % 40.1-51.0 hads=217) MEAN CORPUSCULAR VOLUME 75.9 fL 79.0-92.2 (BEAKER) (test iuzy=802) MEAN CORPUSCULAR HEMOGLOBIN 24.1 pg 25.7-32.2 (BEAKER) (test ibpi=135) MEAN CORPUSCULAR HEMOGLOBIN 31.7 GM/DL 32.3-36.5 CONC (BEAKER) (test qars=602) RED CELL DISTRIBUTION WIDTH 15.8 % 11.6-14.4 (BEAKER) (test mgvt=103) PLATELET COUNT (BEAKER) (test 112 K/CU MM 150-450 vvnm=490) MEAN PLATELET VOLUME (BEAKER) fL 9.4-12.4 Unable to report due to (test plod=265) abnormal Platelet population distribution. NUCLEATED RED BLOOD CELLS 0 /100 WBC 0-0 (BEAKER) (test oook=565) NEUTROPHILS RELATIVE PERCENT 85 % (BEAKER) (test sfsv=609) LYMPHOCYTES RELATIVE PERCENT 5 % (BEAKER) (test nvnq=019) MONOCYTES RELATIVE PERCENT 9 % (BEAKER) (test umdo=814) EOSINOPHILS RELATIVE PERCENT 1 % (BEAKER) (test mdka=959) BASOPHILS RELATIVE PERCENT 0 % (BEAKER) (test gmft=421) NEUTROPHILS ABSOLUTE COUNT 12.25 K/ L 1.78-5.38 (BEAKER) (test vipx=592) LYMPHOCYTES ABSOLUTE COUNT 0.76 K/ L 1.32-3.57 (BEAKER) (test cknm=460) MONOCYTES ABSOLUTE COUNT 1.25 K/ L 0.30-0.82 (BEAKER) (test vwpv=059) EOSINOPHILS ABSOLUTE COUNT 0.08 K/ L 0.04-0.54 (BEAKER) (test yaqp=438) BASOPHILS ABSOLUTE COUNT 0.02 K/ L 0.01-0.08 (BEAKER) (test cvas=642) IMMATURE GRANULOCYTES-RELATIVE 1 % 0-1 PERCENT (BEAKER) (test xspr=4111) BASIC METABOLIC [id number] 07:46:00 Test Item Value Reference Range Comments SODIUM (BEAKER) (test 140 meq/L 136-145 kxon=441) POTASSIUM (BEAKER) (test 3.9 meq/L 3.5-5.1 kene=301) CHLORIDE (BEAKER) (test 107 meq/L 98-107 tnmz=278) CO2 (BEAKER) (test 24 meq/L 22-29 mqig=468) BLOOD UREA NITROGEN 50 mg/dL 7-21 (BEAKER) (test ajdk=633) CREATININE (BEAKER) (test 3.68 mg/dL 0.57-1.25 eljf=730) GLUCOSE RANDOM (BEAKER) 110 mg/dL 70-105 (test mktb=882) CALCIUM (BEAKER) (test 7.2 mg/dL 8.4-10.2 lfei=357) EGFR (BEAKER) (test 20 mL/min/1.73 sq m ESTIMATED GFR IS NOT wghp=6575) ACCURATE CREATININE CLEARANCE IN PREDICTING GLOMERULAR FILTRATION RATE. ESTIMATED GFR IS NOT APPLICABLE FOR DIALYSIS PATIENTS. [id number] 07:41:00 Test Item Value Reference Range Comments PHOSPHORUS (BEAKER) (test yyjk=658) 3.5 mg/dL 2.3-4.7 [id number] 07:41:00 Test Item Value Reference Range Comments MAGNESIUM (BEAKER) (test yvqd=027) 1.8 mg/dL 1.6-2.6 POCT-GLUCOSE [id number] 07:13:00 Test Item Value Reference Range Comments POC-GLUCOSE METER (BEAKER) 124 mg/dL 70-110 TESTED AT [address] (test whis=1619) [facility] [address] CT, [id number] 00:22:00FINAL REPORT CT, ABDOMEN \T \ PELVIS, [...] MDReport Verified Date/Time: 10/23/2017 00:22:43 Reading Location: [address] Body Reading Room CREATINE KINASE (CK)2017-10-22 21 :31:00 Test Item Value Reference Range Comments CREATINE KINASE TOTAL (BEAKER) (test hobj=932) 167 U/L 29-200 LACTIC ACID, VENOUS, WHOLE [id number] 21:24:00 Test Item Value Reference Range Comments LACTATE BLOOD VENOUS (2) (BEAKER) (test 0.8 mmol/L 0.5-2.2 ovxu=1096) Effective 03/15/2016: Units/Reference Range ChangeNew: 0.5-2.2 mmol/L Previous: 5 -20 mg/dLPOCT-GLUCOSE [id number] 21:23:00 Test Item Value Reference Range Comments POC-GLUCOSE METER (BEAKER) 130 mg/dL 70-110 TESTED AT [facility] [address] (test smwh=2293) [facility] [address] SODIUM, RANDOM [id number] 20:29:00 Test Item Value Reference Range Comments SODIUM URINE (BEAKER) (test jgca=968) 24 meq/L Reference Range: No NormalsCREATININE, RANDOM [id number] 20:27:00 Test Item Value Reference Range Comments CREATININE URINE (BEAKER) (test bfva=322) 155.1 mg/dL Reference Range: No NormalsPROTEIN, RANDOM [id number] 20:27:00 Test Item Value Reference Range Comments PROTEIN, URINE (BEAKER) (test yred=6291) 60 mg/dL 0-14 URINALYSIS W/ [id number] 20:27:00 Test Item Value Reference Range Comments COLOR (BEAKER) (test enei=135) Yellow CLARITY (BEAKER) (test uadj=354) Hazy SPECIFIC GRAVITY UA (BEAKER) (test lyoo=186) 1.010 1.001-1.035 PH UA (BEAKER) (test zhyd=275) 5.0 5.0-8.0 PROTEIN UA (BEAKER) (test ztpt=488) 70 mg/dL Negative GLUCOSE UA (BEAKER) (test ukqw=128) Negative Negative KETONES UA (BEAKER) (test tvhd=122) Negative Negative BILIRUBIN UA (BEAKER) (test vvui=578) Negative Negative BLOOD UA (BEAKER) (test rfro=527) Moderate Negative NITRITE UA (BEAKER) (test ehbj=723) Negative Negative LEUKOCYTE ESTERASE UA (BEAKER) (test fuus=208) Large Negative UROBILINOGEN UA (BEAKER) (test ijzl=405) 0.2 mg/dL 0.2-1.0 RBC UA (BEAKER) (test kvtg=891) 85 /HPF WBC UA (BEAKER) (test xpdi=181) 0 /HPF BACTERIA (BEAKER) (test qyly=854) Many MUCUS (BEAKER) (test mruh=9710) Few SQUAMOUS EPITHELIAL (BEAKER) (test hqiv=561) 5 /HPF CASTS (BEAKER) (test eqqg=9476) 5 /LPF CRYSTALS, URINE (BEAKER) (test fndd=5093) Moderate YEAST (BEAKER) (test vdjp=7673) Few SOURCE(BEAKER) (test bjzt=4783) Urine, Moody POCT-GLUCOSE [id number] 17:05:00 Test Item Value Reference Range Comments POC-GLUCOSE METER (BEAKER) 113 mg/dL 70-110 TESTED AT [address] (test aalm=5048) [facility] [address] [id number] 16:24:00 Test Item Value Reference Range Comments PROSTATE SPECIFIC ANTIGEN (BEAKER) (test bqax=804) 0.0 ng/mL 0.0-4.0 POCT-GLUCOSE [id number] 11:21:00 Test Item Value Reference Range Comments POC-GLUCOSE METER (BEAKER) 146 mg/dL 70-110 TESTED AT [address] (test azet=9696) [place] [id number] HEMOGLOBIN AND [id number] 11:19:00 Test Item Value Reference Range Comments HEMOGLOBIN (BEAKER) (test gtos=024) 6.4 GM/DL 13.7-17.5 HEMATOCRIT (BEAKER) (test gzng=547) 20.0 % 40.1-51.0 U/S, RENAL, [id number] 09:08:00Reason for exam:->left intraparenchymal hematoma on CTFINAL REPORT Renal ultrasound dated 10/22/2017 Comment: Real-time transabdominal renal ultrasound was performed.Right kidney measures 13.9 x 7.0 x 5.7 cm. Left kidney qmtuhfha25.3 x 9.7 x 9.2 cm. Right renal [...] MDReport Verified Date/Time: 10/22/2017 09:08:47 Reading Location: [facility] [id number] Ultrasound Reading Room POCT-GLUCOSE [id number] 08:05:00 Test Item Value Reference Range Comments POC-GLUCOSE METER (BEAKER) 154 mg/dL 70-110 TESTED AT [facility] [address] [facility] (test sumn=4736) [facility] [address] URINALYSIS W/ [id number] 07:56:00 Test Item Value Reference Range Comments COLOR (BEAKER) (test btra=912) Yellow CLARITY (BEAKER) (test uuhv=498) Hazy SPECIFIC GRAVITY UA (BEAKER) (test pvlb=530) 1.013 1.001-1.035 PH UA (BEAKER) (test fmen=004) 5.0 5.0-8.0 PROTEIN UA (BEAKER) (test otee=023) 100 mg/dL Negative GLUCOSE UA (BEAKER) (test tyio=174) Negative Negative KETONES UA (BEAKER) (test cgsz=759) Negative Negative BILIRUBIN UA (BEAKER) (test ubbj=291) Negative Negative BLOOD UA (BEAKER) (test eglv=776) Moderate Negative NITRITE UA (BEAKER) (test aflm=325) Negative Negative LEUKOCYTE ESTERASE UA (BEAKER) (test hbca=488) Negative Negative UROBILINOGEN UA (BEAKER) (test sots=103) 0.2 mg/dL 0.2-1.0 RBC UA (BEAKER) (test fizk=232) 13 /HPF WBC UA (BEAKER) (test xvza=379) 1 /HPF BACTERIA (BEAKER) (test dqqn=521) Rare MUCUS (BEAKER) (test lxuj=4320) Rare SQUAMOUS EPITHELIAL (BEAKER) (test urwg=787) 1 /HPF HYALINE CASTS (BEAKER) (test fyfc=264) 3 /LPF AMORPHOUS CRYSTALS (BEAKER) (test dgxy=9948) Rare SOURCE(BEAKER) (test ifsv=1422) Urine, Voided COMPREHENSIVE METABOLIC [id number] 07:45:00 Test Item Value Reference Range Comments TOTAL PROTEIN (BEAKER) 6.2 gm/dL 6.0-8.3 (test skaw=973) ALBUMIN (BEAKER) (test 3.4 g/dL 3.5-5.0 ivao=5634) ALKALINE PHOSPHATASE 53 U/L 40-150 (BEAKER) (test pifr=094) BILIRUBIN TOTAL (BEAKER) 0.5 mg/dL 0.2-1.2 (test cnib=200) SODIUM (BEAKER) (test 141 meq/L 136-145 twow=167) POTASSIUM (BEAKER) (test 4.2 meq/L 3.5-5.1 ohwd=891) CHLORIDE (BEAKER) (test 105 meq/L 98-107 spgy=260) CO2 (BEAKER) (test 21 meq/L 22-29 zuwr=670) BLOOD UREA NITROGEN 44 mg/dL 7-21 (BEAKER) (test ubsn=718) CREATININE (BEAKER) (test 4.16 mg/dL 0.57-1.25 asjc=472) GLUCOSE RANDOM (BEAKER) 121 mg/dL 70-105 (test rdpe=621) CALCIUM (BEAKER) (test 7.6 mg/dL 8.4-10.2 yoab=169) AST (SGOT) (BEAKER) (test 12 U/L 5-34 nfbh=551) ALT (SGPT) (BEAKER) (test 7 U/L 6-55 uffb=971) EGFR (BEAKER) (test 17 mL/min/1.73 sq m ESTIMATED GFR IS NOT gknl=3464) ACCURATE CREATININE CLEARANCE IN PREDICTING GLOMERULAR FILTRATION RATE. ESTIMATED GFR IS NOT APPLICABLE FOR DIALYSIS PATIENTS. CBC W/PLT COUNT & AUTO [id number] 05:44:00 Test Item Value Reference Range Comments WHITE BLOOD CELL COUNT (BEAKER) (test flnz=677) 17.6 K/ L 3.5-10.5 RED BLOOD CELL COUNT (BEAKER) (test rtyj=645) 3.06 M/ L 4.63-6.08 HEMOGLOBIN (BEAKER) (test iwtg=592) 7.2 GM/DL 13.7-17.5 HEMATOCRIT (BEAKER) (test hmpr=995) 22.7 % 40.1-51.0 MEAN CORPUSCULAR VOLUME (BEAKER) (test xqhd=848) 74.2 fL 79.0-92.2 MEAN CORPUSCULAR HEMOGLOBIN (BEAKER) (test 23.5 pg 25.7-32.2 ugar=532) MEAN CORPUSCULAR HEMOGLOBIN CONC (BEAKER) (test 31.7 GM/DL 32.3-36.5 lplb=590) RED CELL DISTRIBUTION WIDTH (BEAKER) (test 15.2 % 11.6-14.4 mkwi=371) PLATELET COUNT (BEAKER) (test rzln=673) 199 K/CU MM 150-450 MEAN PLATELET VOLUME (BEAKER) (test oinz=817) 13.8 fL 9.4-12.4 NUCLEATED RED BLOOD CELLS (BEAKER) (test 0 /100 WBC 0-0 dtrc=770) NEUTROPHILS RELATIVE PERCENT (BEAKER) (test 88 % excw=045) LYMPHOCYTES RELATIVE PERCENT (BEAKER) (test 5 % kbhf=726) MONOCYTES RELATIVE PERCENT (BEAKER) (test 6 % rvte=398) EOSINOPHILS RELATIVE PERCENT (BEAKER) (test 0 % rwtb=881) BASOPHILS RELATIVE PERCENT (BEAKER) (test 0 % bina=759) NEUTROPHILS ABSOLUTE COUNT (BEAKER) (test 15.47 K/ L 1.78-5.38 fgnq=144) LYMPHOCYTES ABSOLUTE COUNT (BEAKER) (test 0.88 K/ L 1.32-3.57 vudg=457) MONOCYTES ABSOLUTE COUNT (BEAKER) (test 1.12 K/ L 0.30-0.82 okqf=201) EOSINOPHILS ABSOLUTE COUNT (BEAKER) (test 0.00 K/ L 0.04-0.54 apjy=612) BASOPHILS ABSOLUTE COUNT (BEAKER) (test 0.02 K/ L 0.01-0.08 apco=995) IMMATURE GRANULOCYTES-RELATIVE PERCENT (BEAKER) 1 % 0-1 (test hgbj=1468) POCT-GLUCOSE [id number] 22:09:00 Test Item Value Reference Range Comments POC-GLUCOSE METER (BEAKER) 165 mg/dL 70-110 TESTED AT [facility] [address] [facility] (test ndja=0185) [place] [id number] 16:51:00 Test Item Value Reference Range Comments PROTIME (BEAKER) (test zdou=540) 17.9 seconds 11.7-14.7 INR (BEAKER) (test tvjy=616) 1.5 <=5.9 PARTIAL THROMBOPLASTIN TIME (BEAKER) (test 23.0 seconds 22.5-36.0 hkuw=106) RECOMMENDED COUMADIN/WARFARIN INR THERAPY RANGESSTANDARD DOSE: 2.0 - 3.0 Includes: PROPHYLAXIS forvenous thrombosis, systemic embolization; TREATMENT for venous thrombosis and/or pulmonary embolus.HIGH RISK: Target INR is 2.5-3.5 for patients with mechanical heart valves.POCT-GLUCOSE [id number] 16:36:00 Test Item Value Reference Range Comments POC-GLUCOSE METER (BEAKER) 222 mg/dL 70-110 TESTED AT [facility] [address] (test rwfo=3003) [facility] [address]
[2019-11-12] MEDS ORDERED: ALTEPLASE 0 ML IV ONE (14:35)
[2019-11-12] MEDS ORDERED: ALTEPLASE 2 MG/VIAL IV ONE (15:00)
[2019-11-12] MEDS ORDERED: WATER FOR INJ,STERILE 10 ML IV ONE (15:00)
--- NOTE | 2019-11-12 16:06 | ER ---
Nurse's Notes [facility] Name: Steve Lopez Jr Age: 78 yrs Sex: Male : 1940 Arrival Date: 11/12/2019 Time: 13:52 Bed 26 Private MD: Diagnosis: Other complication of vascular dialysis catheter Presentation: 11/12 13:53 Presenting complaint: Patient states: was seen here yesterday for his port issues, but sv Dr Esparza's staff stated that he needs to have the Cathflo because the port for his HD will flush but it will not work correctly when they hook him up to the HD machine. Transition of care: patient was not received from another setting of care. Onset of symptoms was November 11, 2019. Risk Assessment: Do you want to hurt yourself or someone else? Patient reports no desire to harm self or others. Initial Sepsis Screen: Does the patient meet any 2 criteria? No. Patient's initial sepsis screen is negative. Does the patient have a suspected source of infection? No. Patient's initial sepsis screen is negative. Care prior to arrival: None. 13:53 Method Of Arrival: Ambulatory sv 13:53 Acuity: NATHANIEL 4 sv Historical: - Allergies: 13:53 No Known Allergies; sv - PMHx: 13:53 Diabetes - IDDM; Glaucoma; heart attack; Hypertension; kidney disease; Prostate Cancer; sv - Immunization history:: Adult Immunizations up to date. - Social history:: Patient/guardian denies using alcohol, street drugs, The patient lives Smoking status: Patient/guardian denies using tobacco. - Ebola Screening: : No symptoms or risks identified at this time. - Family history:: not pertinent. Screenin:20 Abuse screen: Denies threats or abuse. Denies injuries from another. Nutritional rv screening: No deficits noted. Tuberculosis screening: No symptoms or risk factors identified. Fall Risk None identified. Assessment: 15:19 General: Appears in no apparent distress. comfortable, Behavior is calm, cooperative. rv Pain: Denies pain. Neuro: Level of Consciousness is awake, alert, obeys commands, Oriented to person, place, time, situation. Respiratory: Airway is patent. Vital Signs: 13:52 Pulse 55; Resp 16; Temp 98; Pulse Ox 98% ; Weight 86.18 kg; Height 5 ft. 10 in. (177.80 sv cm); 13:52 Body Mass Index 27.26 (86.18 kg, 177.80 cm) sv ED Course: 13:52 Patient arrived in ED. sv 13:54 Triage completed. sv 13:54 Arm band placed on. sv 13:59 Deric Dumont LVN is Primary Nurse. em 14:01 Deshawn Dowd MD is Attending Physician. ma2 15:20 Patient has correct armband on for positive identification. Pulse ox on. NIBP on. rv 16:06 No provider procedures requiring assistance completed. Patient did not have IV access em during this emergency room visit. Administered Medications: 14:37 Not Given (Duplicate Order): tpa IV Thrombolytics; instill 1 mg of tpa in HD catheter rv and let set for 45 min. 15:19 Drug: Cathflo Activase 2 mg Route: IV Thrombolytics; rv 16:18 Follow up: Response: No adverse reaction; Marked relief of symptoms em Outcome: 16:05 Discharge ordered by . ma2 16:06 Discharged to home ambulatory. em 16:06 Condition: good 16:06 Discharge instructions given to patient, Instructed on discharge instructions, follow up and referral plans. go immediately to dialysis for treatment after discharge Demonstrated understanding of instructions, follow-up care. 16:18 Patient left the ED. em Signatures: Alba Adams RN RN sv Deric Dumont LVN LVN em Deshawn Dowd MD MD ma2 Vicente, Ronaldo, RN RN rv Corrections: (The following items were deleted from the chart) 13:54 13:52 Pulse 55bpm; Resp 16bpm; Pulse Ox 98%; Temp 98F; 86.18 kg; Height 5 ft. 10 in.; sv BMI: 27.2; sv 13:56 13:52 Pulse 55bpm; Resp 16bpm; Pulse Ox 98%; Temp 98F; 86.18 kg; Height 5 ft. 10 in.; sv BMI: 27.2; sv
--- NOTE | 2019-11-12 16:07 | EDPHYS ---
Physician Documentation [facility] Name: Steve Lopez Jr Age: 78 yrs Sex: Male : 1940 Arrival Date: 11/12/2019 Time: 13:52 Bed 26 Private MD: ED Physician Deshawn Dowd HPI: 11/12 15:47 This 78 yrs old Black Male presents to ER via Ambulatory with complaints of Dialysis ma2 Catheter Problem. 15:47 The patient has a dialysis catheter in the. Onset: The symptoms/episode began/occurred ma2 suddenly, 1 day(s) ago. Dialysis schedule: . The patient has experienced similar episodes in the past. dr greenberg called advised for atplase in catheter and send to HD . Historical: - Allergies: 13:53 No Known Allergies; sv - PMHx: 13:53 Diabetes - IDDM; Glaucoma; heart attack; Hypertension; kidney disease; Prostate Cancer; sv - Immunization history:: Adult Immunizations up to date. - Social history:: Patient/guardian denies using alcohol, street drugs, The patient lives Smoking status: Patient/guardian denies using tobacco. - Ebola Screening: : No symptoms or risks identified at this time. - Family history:: not pertinent. ROS: 15:47 Constitutional: Negative for fever, chills, and weight loss. ma2 15:47 All other systems are negative. Exam: 15:47 Constitutional: This is a well developed, well nourished patient who is awake, alert, ma2 and in no acute distress. Head/Face: Normocephalic, atraumatic. Eyes: Pupils equal round and reactive to light, extra-ocular motions intact. Lids and lashes normal. Conjunctiva and sclera are non-icteric and not injected. Cornea within normal limits. Periorbital areas with no swelling, redness, or edema. ENT: Nares patent. No nasal discharge, no septal abnormalities noted. Tympanic membranes are normal and external auditory canals are clear. Oropharynx with no redness, swelling, or masses, exudates, or evidence of obstruction, uvula midline. Mucous membranes moist. Neck: Trachea midline, no thyromegaly or masses palpated, and no cervical lymphadenopathy. Supple, full range of motion without nuchal rigidity, or vertebral point tenderness. No Meningismus. Chest/axilla: right upper HD cath is flushing with slow flow, othewis eNormal chest wall appearance and motion. Nontender with no deformity. No lesions are appreciated. Respiratory: Lungs have equal breath sounds bilaterally, clear to auscultation and percussion. No rales, rhonchi or wheezes noted. No increased work of breathing, no retractions or nasal flaring. Abdomen/GI: Soft, non-tender, with normal bowel sounds. No distension or tympany. No guarding or rebound. No evidence of tenderness throughout. Vital Signs: 13:52 Pulse 55; Resp 16; Temp 98; Pulse Ox 98% ; Weight 86.18 kg; Height 5 ft. 10 in. (177.80 sv cm); 13:52 Body Mass Index 27.26 (86.18 kg, 177.80 cm) sv MDM: 14:01 Patient medically screened. ma2 15:47 Differential diagnosis: shunt malfunction, cellulitis, infected shunt. Data reviewed: ma2 vital signs, nurses notes. Counseling: I had a detailed discussion with the patient and/or guardian regarding: the historical points, exam findings, and any diagnostic results supporting the discharge/admit diagnosis, the presence of at least one elevated blood pressure reading (>120/80) during this emergency department visit, the need for outpatient follow up. Response to treatment: the patient's symptoms have resolved after treatment. Administered Medications: 14:37 Not Given (Duplicate Order): tpa IV Thrombolytics; instill 1 mg of tpa in HD catheter rv and let set for 45 min. 15:19 Drug: Cathflo Activase 2 mg Route: IV Thrombolytics; rv 16:18 Follow up: Response: No adverse reaction; Marked relief of symptoms em Disposition: 11/12/19 16:05 Discharged to Home. Impression: Other complication of vascular dialysis catheter. - Condition is Stable. - Discharge Instructions: Hemodialysis, [id number]. - Medication Reconciliation Form, Thank You Letter, Antibiotic Education, Prescription Opioid Use form. - Follow up: Private Physician; When: Tomorrow; Reason: If symptoms return. - Notes: go to the dialysis center now Signatures: Alba Adams RN RN Deric Yanes, CAUSTIC ROOM OPERATOR CAUSTIC ROOM OPERATOR em Deshawn Dowd MD MD ma2 Kyle Carson, RN RN rv Corrections: (The following items were deleted from the chart) 16:18 16:05 11/12/2019 16:05 Discharged to Home. Impression: Other complication of vascular em dialysis catheter. Condition is Stable. Discharge Instructions: Hemodialysis, [id number]. Forms are Medication Reconciliation Form, Thank You Letter, Antibiotic Education, Prescription Opioid Use. Follow up: Private Physician; When: Tomorrow; Reason: If symptoms return. [email or web address]
[2019-11-12 16:40] VITALS: TEMP 98; O2SAT 98
== END 2019-11-12 16:18 | disposition home or self-care (01) ==
LOC: ER 13:51
DX: T82.898A Other specified complication of vascular prosthetic devices, implants and grafts, initial encounter (principal); E11.22 Type 2 diabetes mellitus with diabetic chronic kidney disease; N18.6 End stage renal disease; I12.0 Hypertensive chronic kidney disease with stage 5 chronic kidney disease or end stage renal disease; Z99.2 Dependence on renal dialysis; Z85.46 Personal history of malignant neoplasm of prostate
CPT/HCPCS: 92977; 99291; J2997

== ENCOUNTER 2020-09-02 15:04 | Inpatient (IN) | payer OTHER ==
[2020-09-02] MEDS ORDERED: ACETAMINOPHEN 325 MG TABLET ONE (15:35)
--- OUTSIDE RECORDS SUMMARY | 2020-09-02 16:55 | XMS REPORT | Clinical Summary ---
:1940 Author Organization [facility] Address [address] [place] [address] Care Team Providers Name Role Phone Unavailable Primary Care Provider Unavailable Allergies No Known Allergies Medications Medication Sig Dispensed Refills Start Date End Date Status furosemide (LASIX) 40 MG Take 40 mg by 0 Active tablet mouth daily. atorvastatin (LIPITOR) Take 10 mg by 0 Active 10 MG tablet mouth nightly. allopurinol (ZYLOPRIM) Take 100 mg by 0 Active 100 MG tablet mouth daily. metoprolol (TOPROL-XL) Take 50 mg by 0 Active 50 MG 24 hr tablet mouth daily. acarbose (PRECOSE) 50 MG Take 50 mg by 0 Active tablet mouth 3 (three) times daily with meals. Active Problems Problem Noted Date Kidney mass 10/21/2017 Immunizations Name Administration Dates Next Due Influenza High Dose Preservative Free IM 10/26/2017 Pneumococcal Polysaccharide (Pneumovax) 10/26/2017 Social History Tobacco Use Types Packs/Day Years Used Date Former Smoker Smokeless Tobacco: Never Used Sex Assigned at Date Recorded Not on file Last Filed Vital Signs Not on file Plan of Treatment Not on file Results Not on fileafter 09/02/2019 Advance Directives For more information, please contact: [phone] Code Status Date Activated Date Inactivated Comments Full Code 10/21/2017 3:49 PM 10/26/2017 4:58 PM This code status was determined by: Patient
--- OUTSIDE RECORDS SUMMARY | 2020-09-02 16:55 | XMS REPORT | Clinical Summary ---
:1940 Author Organization [facility] Address [address] [place] [address] Care Team Providers Name Role Phone Sebastian Roth MD Primary Care Provider [phone] Allergies No Known Active Allergies Medications Medication Sig Dispensed Refills Start Date End Date Status atorvastatin atorvastatin 10 mg tablet 0 Active (LIPITOR) 10 MG TK 1 T PO QD tablet doxazosin doxazosin 2 mg tablet 0 Active (CARDURA) 2 MG TK 1 T PO HS tablet clonIDINE 0.3 mg 3 (three) 0 Act vijay (CATAPRES) 0.1 MG times a day. tablet hydrALAZINE 50 mg 3 (three) 0 Ac tive (APRESOLINE) 25 MG times a day. tablet carvediloL (COREG) Take 3.125 mg by 0 Active 3.125 MG tablet mouth 2 (two) times a day with meals. insulin degludec Tresiba FlexTouch U-200 insu john 200 unit/mL (3 mL) subcutaneous pen 0 Active (TRESIBA FLEXTOUCH INJECT 30 UNITS SUBCUTANEOUSLY QD U-200) 200 unit/mL (3 mL) insulin pen docusate sodium Stool Softener 100 mg capsule 0 Active (COLACE) 100 MG TK 1 C PO BID capsule HYDROcodone-acetam Take 1 tablet by 30 tablet 0 01/05/202012/2019 inophen (NORCO) mouth every 6 (six) 5-325 mg per hours as needed for tabletIndications: moderate pain for up acute pain to 30 doses .acute pain. Max Daily Amount: 4 tablets Active Problems Not on file Encounters Date Type Specialty Care Team Description 01/05/2020 Anesthesia Event General Surgery Venkat Oconnor MD Sardina, Maydee, NP 01/05/2020 Surgery General Surgery Nhung Mcintosh LEFT UPP CORINE Odonnell MD EXTREMITY AV FISTULA CREATIO N 01/05/2020 Hospital Encounter General Surgery Nhung Mcintosh MD 01/02/2020 Hospital Encounter Radiology Jermaine, Pre-op testing Cliff Tafoya MD 01/02/2020 Pre-Admit Testing Pre-Admission Nhung Mcintosh Pre-o p testing Appointment Testing MD Belle (Primary Dx) after 09/02/2019 Surgical History Surgery Date Site/Laterality Comments PROSTATECTOMY CARDIAC CATHETERIZATION CREATION, AV FISTULA 01/05/2020 Left Procedure: LEFT UPPER EXTREMITY AV FISTULA CREATION ; Surgeon: Nhung Mcintosh MD; Location: [facility] Main OR; S ervice: Vascular; Laterality: Left ; Medical History Medical History Date Comments Hypertension History of transfusion Cancer (HCC) prostate Diabetes mellitus (HCC) Wears glasses Immunizations up to date Renal failure TTS Family History Medical History Relation Name Comments Heart disease Father Asthma Mother Diabetes Mother Hypertension Mother Relation Name Status Comments Father Mother Social History Tobacco Use Types Packs/Day Years Used Date Former Smoker Cigars, Pipe Quit: 1987 Smokeless Tobacco: Never Used Alcohol Use Drinks/Week oz/Week Comments Never Alcohol Habits Answer Date Recorded How often do you have a drink containing alcohol? Never 01/05/2020 How many drinks containing alcohol do you have on a typical Not asked day when you are drinking? How often do you have six or more drinks on one occasion? No t asked Sex Assigned at Date Recorded Not on file Last Filed Vital Signs Vital Sign Reading Time Taken Comments Blood Pressure 150/68 01/05/2020 2:06 PM [facility] Pulse 68 01/05/2020 2:06 PM [facility] Temperature 36.4 C (97.6 F) 01/05/2020 2:06 PM [facility] Respiratory Rate 18 01/05/2020 2:06 PM [facility] Oxygen Saturation 99% 01/05/2020 2:06 PM [facility] Inhaled Oxygen Concentration - - Weight 85.7 kg (189 lb) 01/05/2020 9:34 AM [facility] Height 177.8 cm (5' 10") 01/05/2020 9:34 AM [facility] Body Mass Index 27.12 01/05/2020 9:34 AM [facility] Plan of Treatment Health Maintenance Due Date Last Done Comments SHINGLES VACCINES (#1) 1991 INFLUENZA VACCINE 06/12/2020 11/07/2018, 12/13/2016 65+ PNEUMOCOCCAL VACCINE Completed 12/13/2016 Procedures Procedure Name Priority Date/Time Associated Comments Diagnosis POC GLUCOSE Routine 01/05/2020 12:37 Results for this PM [facility] procedure are i n the results section. VA AN PERIPHERAL BLOCK Routine 01/05/2020 10:20 R esults for this PROCEDURE FOR PAIN AM [facility] procedure are in the results section. POC PANEL 4 Routine 01/05/2020 9:56 Results for this AM [facility] procedure are i n the results section. ESTIMATED GFR Routine 01/05/2020 9:50 Results fo r this AM [facility] procedure are i n the results section. BASIC METABOLIC PANEL Routine 01/05/2020 9:50 Re sults for this AM [facility] procedure are i n the results section. ECG PRE/POST OP Routine 01/02/2020 3:46 Pre-op testing Result s for this PM [facility] procedure are i n the results section. XR CHEST 2 VW Routine 01/02/2020 3:15 Pre-op testing Results for this PM [facility] procedure are i n the results section. HEMOGLOBIN A1C Routine 01/02/2020 2:28 Pre-op testing Results for this PM [facility] procedure are i n the results section. TYPE AND SCREEN Routine 01/02/2020 2:28 Pre-op testing Result s for this PM [facility] procedure are i n the results section. PARTIAL THROMBOPLASTIN Routine 01/02/2020 2:28 Pre-op testing Results for this TIME (PTT) PM [facility] procedure are i n the results section. PROTHROMBIN TIME WITH Routine 01/02/2020 2:28 Pre-op testing Results for this INR PM [facility] procedure are i n the results section. HC COMPLETE BLD COUNT Routine 01/02/2020 2:28 Pre-op testing Results for this W/AUTO DIFF PM [facility] procedure are i n the results section. after 09/02/2019 Results POC glucose (01/05/2020 12:37 PM [facility]ER) Pathologist Sig nature POC glucose 103 (H) 65 - 99 mg/dL [facility] Comment: [facility] Director Of Women'S Services Name: Cristiano Carney Device ID: [id number] Specimen Performing Organization Address City/State/ZIP Code Phon e Number [facility] DEPARTMENT OF PATHOLOGY [address] [facility] [address] AND GENOMIC MEDICINE [facility] [address] [facility] [address] [facility] Peripheral Block (01/05/2020 10:20 AM [facility]ER) Narrative Performed At Venkat Oconnor MD 0 10:21 AM Peripheral Block Date/Time: 01/05/2020 10:15 AM Performed by: Venkat Oconnor MD Authorized by: Venkat Oconnor MD Patient Location: Pre-op Start Time: 01/05/2020 10:00 AM End Time: 01/05/2020 10:15 AM Reason for Block: primary anesthetic Staff: Anesthesiologist: Venkat Oconnor MD Performed by: Anesthesiologist Preprocedure: patient identified, IV hans cked, site and side verified, risks and benefits discussed, procedure verified, surgical consent complete, patient position confirmed, mo nitors and equipment checked, pre-op evaluation complete and site yokasta ed Peripheral Nerve Block: Patient Position: Supine Prep: ChloraPrep and patient draped Monitoring: Heart rate, continuous pulse oximetry and blood pressure monitoring Block Type: Supraclavicular Laterality: Left Injection Technique: Single injection Procedures: ultrasound guided Local Infiltration (See MAR for details) : Lidocaine Needle: Needle Type: Pajunk Needle Gauge: 19 G Needle Length: 10 cm Assessment: Injection Assessment: Visualized needle/local ane sthetic surrounding nerve, visualized pertinent vascular structures and ne rves, no symptoms of intraneural/intravenous injection, needl e tip visualized at all times during injection of medication and inter mittent aspiration during local anesthetic administration Paresthesia Pain: Immediately resol clary Heart Rate Change: No Slow Fractionated Injection: Yes Block outcome: No apparent complica tions, patient comfortable and patient tolerated procedure well Medications Administered Ropivacaine 0.5 % PF (mL), 30 mL POC panel 4 (01/05/2020 9:56 AM [facility]ER) POC sodium 138 135 - 148 [facility] mmol/L [facility] POC potassium 4.2 3.5 - 5.0 [facility] mmol/L [facility] POC hematocrit 39 (L) 41 - 51 % [facility] POC glucose 123 (H) 65 - 99 mg/dL [facility] Comment: [place] Director Of Women'S Services Name: [facility] Device ID: [id number] POC hemoglobin 13.3 (L) 14.0 - 18.0 [facility] g/dL [facility] Specimen Blood Performing Organization Address City/[facility] [place] Phon e Number [facility] DEPARTMENT OF PATHOLOGY [address] [place] [address] Estimated GFR (01/05/2020 9:50 AM H[facility]INGER) Estimated GFR 8 (A) mL/min/1.73 [facility] Comment: m2 [place] Catergory Units Interpretation HOS PITAL G1 >=90 Normal or high G2 60-89 Mildly decreased G3a 45-59 Mildly to moderately decreas ed G3b 30-44 Moderately to severely decre ased G4 15-29 Severely decreased G5 <15 Kidney failure The eGFR was calculated using the Chronic Kidney Disea se Epidemiology Collaboration (CKD-EPI) equation. Interpretation is based on recommendations of the National Kidney Foundation-Kidney Disease Outcomes Jose Alfredo lity Initiative (NKF-KDOQI) published in 2014. Specimen Plasma specimen Performing Organization Address [facility] Phon e Number [facility] DEPARTMENT OF PATHOLOGY [address] [place] [address] Basic metabolic panel (01/05/2020 9:50 AM [facility]ER) Pathologist Sig nature Sodium 139 135 - 148 mEq/L [facility] Potassium 4.4 3.5 - 5.0 mEq/L [facility] Chloride 99 98 - 112 mEq/L [facility] CO2 24 24 - 31 mEq/L [facility] Anion gap 16@ANIO (H) 7 - 15 mEq/L [facility] BUN 44 (H) 8 - 23 mg/dL [facility] Creatinine 6.76 (H) 0.70 - 1.20 mg/dL [facility] Glucose 133 (H) 65 - 99 mg/dL [facility] Calcium 9.0 8.8 - 10.2 mg/dL [facility] Specimen Plasma specimen Performing Organization Address City/[facility]/ZIP Code Phon e Number [facility] DEPARTMENT OF PATHOLOGY [address] [place] [address] AND GENOMIC MEDICINE [place] [address] [facility] [address] [address] [address] HOSPITAL ECG Pre/Post Op (01/02/2020 3:46 PM [facility]ER) Pathologist Sig nature Ventricular rate 48 [facility] Atrial rate 48 [facility] VA interval 148 [facility] QRSD interval 106 [facility] QT interval 462 [facility] QTC interval 412 [facility] P axis 1 14 [facility] QRS axis 1 -31 [facility] T wave axis 123 [facility] EKG impression Marked sinus bradycardia wit h premature atrial complexes-Left axis deviation-Incomplete right bundle branch block-Minimal voltage criteria for LVH, may be normal variant-T wave abnormality, consider lateral ischemia- Abnormal ECG-No previous ECGs [facility] MUSE available-Electronically Sig yordan By Donna Aguirre MD ([id number]) on 01/03/2020 1:43:06 AM Specimen Narrative Performed At This result has an attachment that is no t available. Performing Organization Address [facility] Phon e Number [facility] MUSE [address] [place] [address] XR Chest 2 Vw (01/02/2020 3:15 PM [facility]INGER) Specimen Narrative Performed At XR CHEST 2 VW [facility]IANT CLINICAL INDICATION: Z01.818 Encounter for other pre procedural examination, pre op testing COMPARISON: 11/13/2002 IMPRESSION: The heart is mildly enlarged and stable in configurati on. A right dual-lumen catheter is present with tips about the rig ht atrium without pneumothorax. The lungs are clear. Prominent osteophyt es are present through the mid thoracic curvature consi stent with DISH. No active cardiopulmonary disease. *[facility]-[id number] Procedure Note Interface, Radiology Results Incoming - 01/02/2020 3:22 PM [facility]ER XR CHEST 2 VW CLINICAL INDICATION: Z01.818 Encounter for other preprocedural examination, pre op testing COMPARISON: 11/13/2002 IMPRESSION: The heart is mildly enlarged and stable in configuration. A right dual-lumen catheter is present with tips about the right atrium without pneumothorax. The lungs are clear. Prominent osteophytes are present through the mid thoracic curvature consi stent with DISH. No active cardiopulmonary disease. *[facility]-[id number] Performing Organization Address City/[facility] Phon e Number [facility] [address] [place] [address] Partial thromboplastin time, activated (01/02/2020 2:28 PM [facility]ER) PTT 31.0 23.0 - 36.0 [facility] Comment: [facility] PTT therapeutic range for unfractionated heparin is HOSPITAL 61.0-112.0 seconds which corresponds to Anti-Xa 0.3-0.7 U/ml. Specimen Blood Performing Organization Address [facility] Phon e Number [facility] DEPARTMENT OF PATHOLOGY [id number] [place] [address] Prothrombin time with INR (01/02/2020 2:28 PM H[facility]INGER) Pathologist [facility] Prothrombin time 14.4 11.5 - 14.5 [facility] INR 1.1 [place] Comment: [facility] International Normalized Ratio (INR) is a therapeu [facility] monitoring tool for patients who are stable on oral anticoagulant therapy. An INR of 2.0-3.0 is suggested for deep vein thrombosis/pulmonary embolism. Specimen Blood Performing Organization Address City/[facility] Phon e Number [facility] DEPARTMENT OF PATHOLOGY [address] [address] CBC with platelet and differential (01/02/2020 2:28 PM H[facility]INGER) Pathologist [facility] WBC 8.8 4.5 - 11.0 k/uL [facility] RBC 4.93 4.40 - 6.00 [facility] m/uL [facility] HGB 12.1 (L) 14.0 - 18.0 [facility] g/dL [facility] HCT 38.6 (L) 41.0 - 51.0 % [facility] MCV 78.3 (L) 82.0 - 100.0 fL [facility] MCH 24.5 (L) 27.0 - 34.0 pg [facility] MCHC 31.3 31.0 - 37.0 [facility] g/dL [facility] RDW - SD 41.5 37.0 - 55.0 fL [facility] MPV 10.5 6.9 - 11.0 fL [facility] Platelet count 175 150 - 400 K/uL [facility] Nucleated RBC 0.00 /100 WBC [facility] Neutrophils 73.1 (H) 39.0 - 69.0 % [facility] Lymphocytes 13.9 (L) 25.0 - 45.0 % [facility] Monocytes 6.9 0.0 - 10.0 % [facility] Eosinophils 4.9 0.0 - 5.0 % [facility] Basophils 0.7 0.0 - 1.0 % [facility] Immature granulocytes 0.5 0.0 - 1.0 % [facility] Specimen Blood Performing Organization Address City/[facility]/ZIP [facility] Phon e Number [facility] DEPARTMENT OF PATHOLOGY [address] [place] [address] AND [place] [id number] HOSPITAL Type and screen (01/02/2020 2:28 PM HASH [facility]INGER) Pathologist Sig nature ABO grouping O [facility] Rh type POS [facility] Antibody screen (gel) [facility] Specimen Blood Performing Organization Address [facility] Phon e Number [facility] DEPARTMENT OF PATHOLOGY [address] [place] [address] Hemoglobin A1c (01/02/2020 2:28 PM HASH SLINGER) Hemoglobin A1C 6.7 (H) 4.0 - 5.6 % [facility] Comment: [place] HbA1c cutoffs for diagnosing diabetes: HO SPITAL 4.0% - 5.6% = normal 5.7% - 6.4% = increased risk for diabetes (prediabetes )9 >=6.5% = diabetes9 Goals for glycemic control (ADA 2016) < 7.0% Target for non adults with diabetes. More or less stringent targets may be appropriate for individual patients. <7.5% Target for Children and adolescents with type 1 diabetes. Specimen Blood Performing Organization Address City/State/ZIP Code Phon e Number [facility] DEPARTMENT OF PATHOLOGY [address] [place] [address] AND [facility] [place] [address] [facility] [address] [place] [address] HOSPITAL after 09/02/2019 Insurance Payer Benefit Plan / Subscriber ID Effective Dates Phone Addre ss Type Group MEDICARE MEDICARE PART A [id number] 2007-Present [place], [place] Medicare AND B Advance Directives For more information, please contact: [phone] Type Date Recorded Patient Applications Processor Explanati on Advance Directives, Living Will 01/02/2020 1:35 PM and Medical Power of Color Repairer
--- OUTSIDE RECORDS SUMMARY | 2020-09-02 16:57 | XMS REPORT | Continuity of Care Document ---
:1940 Author Organization [facility] t Address [address] [place] [address] Care Team Providers Name Role Phone Sebastian Roth MD Primary Care Physician [phone] Arnaldo ROMEO, TGloria Attending Clinician Otis Oconnor MD Attending Clinician Ekaterina CRESPO Attending Clinician Michelet Dean MD Attending Clinician OSCAR Attending Clinician Unavailable OSCAR Admitting Clinician Unavailable Payers Payer Name Policy Type Policy Effective Date Expiration Date Sour ce Number MEDICAREMEDICARE PART [id number] Srikanth Nuñez AND 00:00:00 Taoist [id number] 2006- [place], [place] Condition Condition Condition Status Onset Resolution Last Treating Co mments Source Name Details Category Date Date Treatment Clinician Date Kidney Kidney Disease Active 2016-[address] [facility] Allergies, Adverse Reactions, Alerts This patient has no known allergies or adverse reactions. Family History Family Member Diagnosis Comments Start Date Stop Date Source Natural father Heart disease Mikal Cowan Natural mother Asthma [facility] Natural mother Diabetes [facility] Natural mother Hypertension Mikal Cowan Social History Social Habit Start Date Stop Date Quantity Comments Source History of tobacco Current smoker Srikanth Cowan use History [facility] Meth odist Alcohol Std Drinks History [facility] odist Alcohol Binge Sex Assigned At [facility] ethodist Tobacco use and 2020-01-06 2020-01-06 Never used [facility] ethodist exposure 00:00:00 00:00:00 Alcohol intake 2020-01-06 2020-01-06 Lifetime [facility] 00:00:00 00:00:00 non-drinker (finding) History [facility] 2020-01-05 2020-01-05 1 [facility] odist Alcohol Frequency 00:00:00 00:00:00 Smoking Status Start Date Stop Date Source Former smoker 2020-01-06 00:00:00 2020-01-06 00:00:00 [facility] Taoist Medications Ordered Filled Start Stop Current Ordering Indication Dosage Frequency Signature Comments Components Source Medication Medication Date Date Medication? Clinician (SIG) Name Name atorvastati 2020-0 Yes atorvastat Ren n (LIPITOR) 2-24 in 10 mg Meth erna 10 MG 15:10: tablet TK st tablet 48 1 T PO QD doxazosin 2020-0 Yes doxazosin Sam ston (CARDURA) 2 2-24 2 mg Methodi MG tablet 15:10: tablet TK st 48 1 T PO HS clonIDINE 2020-0 Yes .3mg [id number] 0.3 mg 3 Ren (CATAPRES) 2-24 [id number] (three) Methodi 0.1 MG 15:10: 3D times a st tablet 48 day. hydrALAZINE 2020-0 Yes 50mg Q.[id number] 50 mg 3 Ren (APRESOLINE 2-24 [id number] (three) Methodi ) 25 MG 15:10: 3D times a st tablet 48 day. carvediloL 2020-0 Yes 3.125mg Q.5D Take 3.125 Ren (COREG) 2-24 mg by Methodi 3.125 MG 15:10: mouth 2 st tablet 48 (two) times a day with meals. insulin 2020-0 Yes Tresiba Daphne degludec 2-24 FlexTouch Method i (TRESIBA 15:10: U-200 st FLEXTOUCH 48 insulin U-200) 200 200 unit/mL (3 unit/mL (3 mL) insulin mL) pen subcutaneo us pen INJECT 30 UNITS SUBCUTANEO USLY QD docusate Yes Stool Ren sodium 2-24 Softener Methodi (COLACE) 15:10: [address] 100 MG 48 capsule TK capsule 1 C PO BID HYDROcodone 2020- No acute pain 1{tbl} Q6H Take 1 Ren -acetaminop 2-24 01-11 tablet by Ny royce malik (NORCO) 00:00: 23:[address] 5-325 mg 00 :00 every 6 per tablet (six) hours as needed for moderate pain for up to 30 doses .acute pain. Max Daily Amount: 4 tablets furosemide 2016-11 Yes 40mg QD Take [address] (LASIX) 40 2-15 by mouth [facility] tablet 14:58: daily. Medica l [address] [place] atorvastati 2016-11 Yes 10mg QD Take [address] [facility] (LIPITOR) 2-15 by mouth [facility] - 10 MG 14:58: nightly. Medical tablet [address] [place] allopurinol 2016-11 Yes 100mg QD Take [address] (ZYLOPRIM) 2-15 mg by [facility] - 100 MG 14:58: mouth Medical tablet 35 daily. [place] metoprolol 2016-11 Yes 50mg QD Take [address] (TOPROL-XL) 2-15 by mouth [facility] - 50 MG 24 hr 14:58: daily. [facility] tablet [address] [place] acarbose 2016-11 Yes 50mg Take [address] (PRECOSE) 2-15 by mouth 3 [facility] - 50 MG 14:58: (three) Medical tablet 35 times Center daily with meals. Immunizations Ordered Immunization Filled Immunization Date Status Commen ts Source Name Name Influenza High Dose 2017-10-26 [facility]00 [facility] Pneumococcal 2017-10-[address] [facility] - Polysaccharide 00:00:00 [facility] (Pneumovax) Vital Signs Vital Name Observation Time Observation Value Comments Source Systolic blood 2020-01-05 14:06:00 150 mm[Hg] James n Taoist pressure Diastolic blood 2020-01-05 14:06:00 68 mm[Hg] Tatianna on Taoist pressure Heart rate 2020-01-05 14:06:00 68 /min Mikal Cowan Body temperature 2020-01-05 14:06:00 36.44 [place] [facility] Respiratory rate 2020-01-05 14:06:00 18 /min Shelly Cowan Oxygen saturation in 2020-01-05 14:06:00 99 /min Mikal Cowan Arterial blood by Pulse oximetry Body height 2020-01-05 09:34:00 177.8 cm Mikal Cowan Body weight 2020-01-05 09:34:00 85.73 kg Mikal Cowan BMI 2020-01-05 09:34:00 27.12 kg/m2 Mikal Cowan Procedures Procedure Date / Time Performing Clinician Source Performed POC GLUCOSE 2020-01-05 12:37:00 Nhung Mcintosh DE AN PERIPHERAL BLOCK 2020-01-05 10:20:11 Venkat Oconnor PROCEDURE FOR PAIN POC PANEL 4 2020-01-05 09:56:00 Nhung Mcintosh BASIC METABOLIC PANEL 2020-01-05 09:50:00 James Dean ESTIMATED GFR 2020-01-05 09:50:00 Mikal Dean ECG PRE/POST OP 2020-01-02 15:46:46 Mikal Dean XR CHEST 2 VW 2020-01-02 15:15:05 Mikal Dean HC COMPLETE BLD COUNT 2020-01-02 14:28:00 Nhung Mcintosh W/AUTO DIFF PROTHROMBIN TIME WITH INR 2020-01-02 14:28:00 Nhung Mcintosh PARTIAL THROMBOPLASTIN 2020-01-02 14:28:00 Nhung Mcintosh TIME (PTT) TYPE AND SCREEN 2020-01-02 14:28:00 Nhung Mcintosh HEMOGLOBIN A1C 2020-01-02 14:28:00 Mikal Dean Plan of Care Planned Activity Planned Date Details Comments Source Future Scheduled 2020-06-12 INFLUENZA VACCINE James Cowan Test 00:00:00 [code = INFLUENZA VACCINE] Future Scheduled 1991 SHINGLES VACCINES [place] [facility] Test 00:00:00 (#1) [code = SHINGLES VACCINES (#1)] Encounters Start End Encounter Admission Attending Care Care Encounter Source Date/Time Date/Time Type Type Clinicians Facility Department ID 2020-01-02 2020-01-02 Outpatient ARNALDO [facility] [id number] Daphne 00:00:00 00:00:00 IMRAN [address] 2020-01-02 2020-01-02 Outpatient WORONNIE [facility] [id number] Daphne 00:00:00 00:00:00 KI, [address] Results Test Description Test Time Test Comments Results Result Comments Source POC glucose 2020-01-05 12:39:58 Test Item Value Reference Range Interpretation Comme nts POC glucose (test code = 18551-9) 103 mg/dL 65-99 H Counselor Aid Name: Cristiano Devries ID: [id number] Lab Interpretation (test code = Abnormal 49268-8) Daphne MethodistBasic metabolic [id number] 10:34:05 Test Item Value Reference Range Interpretation Comments Sodium (test code = 2951-2) 139 135- 148 mEq/L Potassium (test code = 2823-3) 4.4 3.5- 5.0 mEq/L Chloride (test code = 2075-0) 99 98- 112 mEq/L CO2 (test code = 2028-9) 24 24- 31 mEq/L Anion gap (test code = 10790-2) 16@ANIO 7- 15 mEq/L H BUN (test code = 3094-0) 44 mg/dL 8-23 H Creatinine (test code = 2160-0) 6.76 mg/dL 0.7-1.2 H Glucose (test code = 2345-7) 133 mg/dL 65-99 H Calcium (test code = 43688-1) 9.0 mg/dL 8.8-10.2 Lab Interpretation (test code = Abnormal 01832-7) Daphne MethodistEstimated [id number] 10:34:05 Test Item Value Reference Range Interpretation Comments Estimated GFR (test 8 mL/min/1.73 m2 Savannah Richard orsergei Units code = 5488) InterpretationG 1 >=90 Cleo l or highG2 60-89 Mildly decrease dG3a 45-59 Mil dly to moderately decr mzabjN4i 30-44 Moderately to s everely decreasedG4 15-29 Severe ly decreasedG5 <15 Kidney renetta lureThe eGFR was calcul ated using the [facility] Kidney Disease Epidemiology Collaboration ( CKD-EPI) equation. Interpretation is based on recommendati ons of the National [facility]-Kidn ey Disease Outcome s Quality Initiat vijay (NK-KDOQI) pub [facility] 2013. Lab Interpretation Abnormal (test code = 25100-7) Daphne MethodistPeripheral [id number] 10:20:11Venkat Oconnor MD 01/05/2020 10:21 AMPeripheral BlockDate/Time: 01/05/2020 10:15 AMPerformed by: Venkat Oconnor MDAuthorized by: Venkat Oconnor MD Patient Location: Pre-opStart Time: 01/05/2020 10:00 AMEnd Time: 01/05/2020 10:15 AMReason for Block: primary anesthetic Staff: Anesthesiologist: Venkat Oconnor MD Performed by: AnesthesiologistPreprocedure: patient identified, IV checked, site and side verified, risks and benefits discussed, procedure verified, surgical consent complete, patient position confirmed, monitors and equipment checked, pre-op evaluation complete and site marked Peripheral Nerve Block: Patient Position: Supine Prep: ChloraPrep and patient draped Monitoring: Heart rate, continuous pulse oximetry and blood pressure monitoringBlock Type: SupraclavicularLaterality: LeftInjection Technique: Single injectionProcedures: ultrasound guided Local Infiltration (See MAR for details): LidocaineNeedle: Needle Type: Pajunk Needle Gauge: 19 G Needle Length: 10 cmAssessment: Injection Assessment: Visualized needle/local anesthetic surrounding nerve, visualized pertinent vascular structures and nerves, no symptoms of intraneural/intravenous injection, needle tip visualized at all times during injection of medication and intermittent aspiration during local anesthetic administration Paresthesia Pain: Immediately resolved Heart Rate Change: No Slow Fractionated Injection: Yes Block outcome: No apparent complications, patient comfortable and patient tolerated procedure wellMedications AdministeredRopivacaine 0.5 % PF (mL), 30 mL [facility] [id number] 09:57:46 Test Item Value Reference Range Interpretation Comments POC sodium (test code 138 mmol/L 135-148 = 2947-0) POC potassium (test 4.2 mmol/L 3.5-5 code = 6298-4) POC hematocrit (test 39 % 41-51 L code = 4544-3) POC glucose (test code 123 mg/dL 65-99 H Opera tor Name: [place] = 2339-0) TheresaDevice I D: [id number] POC hemoglobin (test 13.3 g/dL 14-18 L code = 718-7) Lab Interpretation Abnormal (test code = 91799-8) Mikal MethodistECG Pre/Post [id number] 01:43:10 Test Item Value Reference Range Interpretation Comments Ventricular rate (test 48 code = 253) Atrial rate (test code 48 = 255) DE interval (test code 148 = 266) QRSD interval (test 106 code = 260) QT interval (test code 462 = 264) QTC interval (test code 412 = 265) P axis 1 (test code = 14 267) QRS axis 1 (test code = -31 268) T wave axis (test code 123 = 270) EKG impression (test Marked sinus code = 273) bradycardia with premature atrial complexes-Left axis deviation-Incomplete right bundle branch block-Minimal voltage criteria for LVH, may be normal variant-T wave abnormality, consider lateral ischemia-Abnormal ECG-No previous ECGs available-Electronical ly Signed By oDnna Aguirre MD ([id number]) on 01/03/2020 1:43:06 AM Mikal MethodistType and [id number] 16:29:00 Test Item Value Reference Range Interpretation Comments ABO grouping (test code = 883-9) O Rh type (test code = 39255-2) POS Antibody screen (gel) (test code = NEG 890-4) Mikal MethodistHemoglobin [id number] 15:32:19 Test Item Value Reference Range Interpretation Comments Hemoglobin A1C (test 6.7 % 4-5.6 H HbA1c c utoffs for code = 37914-1) diagnosing diabetes:4.0% - 5.6% = normal5.7% - 6.4% = increased risk for diabetes (prediabetes)9> =6.5% = ymdnuvlv7Nkri s for glycemic contro l (ADA 2016)< 7.0% Ta rget for non adults with mariluz betes. More or less stringent targe ts may be appropriate for individual wendy ents. <7.5% Target for Children and adolescents wit h type 1 diabetes. Lab Interpretation (test Abnormal code = 76322-6) Ren MethodistPartial thromboplastin time, [id number] 15:28:40 Test Item Value Reference Range Interpretation Comments PTT (test code = 31.0 23.0- 36.0 sec PTT thera peutic range for 3173-2) unfractionated heparin is61.0-112.0 se conds which corresponds to Anti-Xa0.3-0.7 U/ml. Daphne MethodistProthrombin time with [id number] 15:27:52 Test Item Value Reference Range Interpretation Comments Prothrombin time (test 14.4 11.5- 14.5 sec code = 5902-2) INR (test code = 1.1 [facility] 46221-7) Normalized Rati o (INR) is a therapeutic m onitoring tool for patien ts who are stable on oral anticoagulant t herapy. An INR of 2.0-3.0 is suggested for d eep vein thrombosis/pulm onary embolism. Daphne MethodistXR Chest 2 [id number] 15:19:12Hm Interface, Radiology Results 01/02/2020 3:22 PM CSTXR CHEST 2 VWCLINICAL INDICATION:Z01.818 Encounter for other preprocedural examination, pre op testingCOMPARISON: 11/13/2002IMPRESSION:The heart is mildly enlarged and stable in configuration. A right dual-lumen catheter is present with tips about the right atrium without pneumothorax. The lungs are clear. 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.No active cardiopulmonary disease.*[facility]-[id number] MethodistCBC with platelet and differential 2020-01-02 15:13:53 Test Item Value Reference Range Interpretation Comments WBC (test code = 57156-3) 8.8 4.5- 11.0 k/uL RBC (test code = 26880-8) 4.93 m/uL 4.4-6 HGB (test code = 718-7) 12.1 g/dL 14-18 L HCT (test code = 4544-3) 38.6 % 41-51 L MCV (test code = 787-2) 78.3 fL 82-100 L MCH (test code = 785-6) 24.5 pg 27-34 L MCHC (test code = 786-4) 31.3 g/dL 31-37 RDW - SD (test code = 02312-1) 41.5 fL 37-55 MPV (test code = 09788-3) 10.5 fL 6.9-11 Platelet count (test code = 175 K/uL 150-400 01089-6) Nucleated RBC (test code = 67983-3) 0.00 /100 WBC Neutrophils (test code = 51807-5) 73.1 % 39-69 H Lymphocytes (test code = 80079-4) 13.9 % 25-45 L Monocytes (test code = 75347-7) 6.9 % 0-10 Eosinophils (test code = 90418-4) 4.9 % 0-5 Basophils (test code = 06558-3) 0.7 % 0-1 Immature granulocytes (test code = 0.5 % 0-1 55203-5) Lab Interpretation (test code = Abnormal 68040-7) Daphne MethodistBLOOD [id number] 10:00:00 Test Item Value Reference Range Interpretation Comments CULTURE (BEAKER) (test No growth in 5 days code = 1095) BLOOD [id number] 10:00:00 Test Item Value Reference Range Interpretation Comments CULTURE (BEAKER) (test No growth in 5 days code = 1095) POCT-GLUCOSE [id number] 12:18:00 Test Item Value Reference Range Interpretation Comments POC-GLUCOSE METER 181 mg/dL 70-[address] [facility] [address] (BEAKER) (test code = ALEKSANDRA [address] [place] 1538) [address] POCT-GLUCOSE [id number] 08:05:00 Test Item Value Reference Range Interpretation Comments POC-GLUCOSE METER 143 mg/dL 70-[address] [facility] [address] (BEAKER) (test code = ALEKSANDRA [address] [place] 1538) [address] BASIC METABOLIC [id number] 06:08:00 Test Item Value Reference Range Interpretation Comments SODIUM (BEAKER) 139 meq/L 136-145 (test code = 381) POTASSIUM (BEAKER) 4.3 meq/L 3.5-5.1 (test code = 379) CHLORIDE (BEAKER) 107 meq/L 98-107 (test code = 382) CO2 (BEAKER) (test 23 meq/L 22-29 code = 355) BLOOD UREA NITROGEN 40 mg/dL 7-21 H (BEAKER) (test code = 354) CREATININE (BEAKER) 2.56 mg/dL 0.57-1.25 H (test code = 358) GLUCOSE RANDOM 150 mg/dL 70-105 H (BEAKER) (test code = 652) CALCIUM (BEAKER) 7.7 mg/dL 8.4-10.2 L (test code = 697) EGFR (BEAKER) (test 30 mL/min/1.73 ESTIMA TANJA GFR IS code = 1092) sq m NOT ACCURATE CREATININE CLEARANCE IN PREDICTING GLOMERULAR FILTRATION RATE . ESTIMATED GFR I S NOT APPLICABLE FOR DIALYSIS PATIEN TS. [id number] 06:03:00 Test Item Value Reference Range Interpretation Comments PHOSPHORUS (BEAKER) (test code = 3.4 mg/dL 2.3-4.7 604) [id number] 06:03:00 Test Item Value Reference Range Interpretation Comments MAGNESIUM (BEAKER) (test code = 1.9 mg/dL 1.6-2.6 627) CBC W/PLT COUNT & AUTO [id number] 05:38:00 Test Item Value Reference Range Interpretation Comments WHITE BLOOD CELL COUNT (BEAKER) 9.4 K/ L 3.5-10.5 (test code = 775) RED BLOOD CELL COUNT (BEAKER) 2.93 M/ L 4.63-6.08 L (test code = 761) HEMOGLOBIN (BEAKER) (test code = 7.4 GM/DL 13.7-17.5 L 410) HEMATOCRIT (BEAKER) (test code = 23.0 % 40.1-51.0 L 411) MEAN CORPUSCULAR VOLUME (BEAKER) 78.5 fL 79.0-92.2 L (test code = 753) MEAN CORPUSCULAR HEMOGLOBIN 25.3 pg 25.7-32.2 L (BEAKER) (test code = 751) MEAN CORPUSCULAR HEMOGLOBIN CONC 32.2 GM/DL 32.3-36.5 L (BEAKER) (test code = 752) RED CELL DISTRIBUTION WIDTH 17.5 % 11.6-14.4 H (BEAKER) (test code = 412) PLATELET COUNT (BEAKER) (test 168 K/CU MM 150-450 code = 756) MEAN PLATELET VOLUME (BEAKER) 12.2 fL 9.4-12.4 (test code = 754) NUCLEATED RED BLOOD CELLS 0 /100 WBC 0-0 (BEAKER) (test code = 413) NEUTROPHILS RELATIVE PERCENT 82 % (BEAKER) (test code = 429) LYMPHOCYTES RELATIVE PERCENT 7 % (BEAKER) (test code = 430) MONOCYTES RELATIVE PERCENT 9 % (BEAKER) (test code = 431) EOSINOPHILS RELATIVE PERCENT 2 % (BEAKER) (test code = 432) BASOPHILS RELATIVE PERCENT 0 % (BEAKER) (test code = 437) NEUTROPHILS ABSOLUTE COUNT 7.65 K/ L 1.78-5.38 H (BEAKER) (test code = 670) LYMPHOCYTES ABSOLUTE COUNT 0.65 K/ L 1.32-3.57 L (BEAKER) (test code = 414) MONOCYTES ABSOLUTE COUNT (BEAKER) 0.88 K/ L 0.30-0.82 H (test code = 415) EOSINOPHILS ABSOLUTE COUNT 0.14 K/ L 0.04-0.54 (BEAKER) (test code = 416) BASOPHILS ABSOLUTE COUNT (BEAKER) 0.02 K/ L 0.01-0.08 (test code = 417) IMMATURE GRANULOCYTES-RELATIVE 0 % 0-1 PERCENT (BEAKER) (test code = 2801) CALCIUM, [id number] 05:36:00 Test Item Value Reference Range Interpretation Comments CALCIUM IONIZED (BEAKER) (test 0.89 mmol/L 1.12-1.27 L code = 698) PH, BLOOD (BEAKER) (test code = 7.54 1810) POCT-GLUCOSE [id number] 21:59:00 Test Item Value Reference Range Interpretation Comments POC-GLUCOSE METER 184 mg/dL 70-[address] [facility] [address] (BEAKER) (test code = BRUNILDACLARISSE [place] 1538) [address] POCT-GLUCOSE [id number] 17:35:00 Test Item Value Reference Range Interpretation Comments POC-GLUCOSE METER 130 mg/dL 70-[address] [facility] [address] (BEAKER) (test code = ALEKSANDRA [address] [place] 1538) [address] POCT-GLUCOSE [id number] 11:42:00 Test Item Value Reference Range Interpretation Comments POC-GLUCOSE METER 161 mg/dL 70-110 H TESTED AT [place] [address] (BEAKER) (test code = ALEKSANDRA [address] [place] 1538) [address] POCT-GLUCOSE [id number] 10:42:00 Test Item Value Reference Range Interpretation Comments POC-GLUCOSE METER 172 mg/dL 70-110 H TESTED AT [place] [address] (BEAKER) (test code = ALEKSANDRA [address] [facility] 1538) [address] CBC W/PLT COUNT & AUTO [id number] 09:06:00 Test Item Value Reference Range Interpretation Comments WHITE BLOOD CELL COUNT (BEAKER) 10.7 K/ L 3.5-10.5 H (test code = 775) RED BLOOD CELL COUNT (BEAKER) 3.06 M/ L 4.63-6.08 L (test code = 761) HEMOGLOBIN (BEAKER) (test code = 7.7 GM/DL 13.7-17.5 L 410) HEMATOCRIT (BEAKER) (test code = 23.7 % 40.1-51.0 L 411) MEAN CORPUSCULAR VOLUME (BEAKER) 77.5 fL 79.0-92.2 L (test code = 753) MEAN CORPUSCULAR HEMOGLOBIN 25.2 pg 25.7-32.2 L (BEAKER) (test code = 751) MEAN CORPUSCULAR HEMOGLOBIN CONC 32.5 GM/DL 32.3-36.5 (BEAKER) (test code = 752) RED CELL DISTRIBUTION WIDTH 17.0 % 11.6-14.4 H (BEAKER) (test code = 412) PLATELET COUNT (BEAKER) (test 154 K/CU MM 150-450 code = 756) MEAN PLATELET VOLUME (BEAKER) 12.5 fL 9.4-12.4 H (test code = 754) NUCLEATED RED BLOOD CELLS 0 /100 WBC 0-0 (BEAKER) (test code = 413) NEUTROPHILS RELATIVE PERCENT 85 % (BEAKER) (test code = 429) LYMPHOCYTES RELATIVE PERCENT 6 % (BEAKER) (test code = 430) MONOCYTES RELATIVE PERCENT 8 % (BEAKER) (test code = 431) EOSINOPHILS RELATIVE PERCENT 1 % (BEAKER) (test code = 432) BASOPHILS RELATIVE PERCENT 0 % (BEAKER) (test code = 437) NEUTROPHILS ABSOLUTE COUNT 9.05 K/ L 1.78-5.38 H (BEAKER) (test code = 670) LYMPHOCYTES ABSOLUTE COUNT 0.63 K/ L 1.32-3.57 L (BEAKER) (test code = 414) MONOCYTES ABSOLUTE COUNT (BEAKER) 0.88 K/ L 0.30-0.82 H (test code = 415) EOSINOPHILS ABSOLUTE COUNT 0.06 K/ L 0.04-0.54 (BEAKER) (test code = 416) BASOPHILS ABSOLUTE COUNT (BEAKER) 0.01 K/ L 0.01-0.08 (test code = 417) IMMATURE GRANULOCYTES-RELATIVE 1 % 0-1 PERCENT (BEAKER) (test code = 2801) BASIC METABOLIC [id number] 08:20:00 Test Item Value Reference Range Interpretation Comments SODIUM (BEAKER) 142 meq/L 136-145 (test code = 381) POTASSIUM (BEAKER) 4.0 meq/L 3.5-5.1 (test code = 379) CHLORIDE (BEAKER) 108 meq/L 98-107 H (test code = 382) CO2 (BEAKER) (test 25 meq/L 22-29 code = 355) BLOOD UREA NITROGEN 41 mg/dL 7-21 H (BEAKER) (test code = 354) CREATININE (BEAKER) 2.65 mg/dL 0.57-1.25 H (test code = 358) GLUCOSE RANDOM 132 mg/dL 70-105 H (BEAKER) (test code = 652) CALCIUM (BEAKER) 7.8 mg/dL 8.4-10.2 L (test code = 697) EGFR (BEAKER) (test 29 mL/min/1.73 ESTIMA TANJA GFR IS code = 1092) sq m NOT ACCURATE CREATININE CLEARANCE IN PREDICTING GLOMERULAR FILTRATION RATE . ESTIMATED GFR I S NOT APPLICABLE FOR DIALYSIS PATIEN TS. [id number] 07:57:00 Test Item Value Reference Range Interpretation Comments PHOSPHORUS (BEAKER) (test code = 3.2 mg/dL 2.3-4.7 604) [id number] 07:57:00 Test Item Value Reference Range Interpretation Comments MAGNESIUM (BEAKER) (test code = 1.7 mg/dL 1.6-2.6 627) CALCIUM, [id number] 07:40:00 Test Item Value Reference Range Interpretation Comments CALCIUM IONIZED (BEAKER) (test 0.95 mmol/L 1.12-1.27 L code = 698) PH, BLOOD (BEAKER) (test code = 7.53 1810) POCT-GLUCOSE [id number] 21:39:00 Test Item Value Reference Range Interpretation Comments POC-GLUCOSE METER 138 mg/dL 70-110 H TESTED AT [place] [address] (BEAKER) (test code = [facility] 1538) [address] POCT-GLUCOSE [id number] 18:16:00 Test Item Value Reference Range Interpretation Comments POC-GLUCOSE METER 158 mg/dL 70-110 H TESTED AT [place] [address] [facility] (test code = [facility] 1538) [address] POCT-GLUCOSE [id number] 12:07:00 Test Item Value Reference Range Interpretation Comments POC-GLUCOSE METER 153 mg/dL 70-110 H TESTED AT [place] [address] (BEAKER) (test code = [facility] 1538) [address] POCT-GLUCOSE [id number] 08:12:00 Test Item Value Reference Range Interpretation Comments POC-GLUCOSE METER 133 mg/dL 70-110 H TESTED AT [place] [address] (BEAKER) (test code = [facility] 1538) [address] BASIC METABOLIC [id number] 05:25:00 Test Item Value Reference Range Interpretation Comments SODIUM (BEAKER) 142 meq/L 136-145 (test code = 381) POTASSIUM (BEAKER) 4.0 meq/L 3.5-5.1 (test code = 379) CHLORIDE (BEAKER) 109 meq/L 98-107 H (test code = 382) CO2 (BEAKER) (test 24 meq/L 22-29 code = 355) BLOOD UREA NITROGEN 47 mg/dL 7-21 H (BEAKER) (test code = 354) CREATININE (BEAKER) 3.13 mg/dL 0.57-1.25 H (test code = 358) GLUCOSE RANDOM 130 mg/dL 70-105 H (BEAKER) (test code = 652) CALCIUM (BEAKER) 7.6 mg/dL 8.4-10.2 L (test code = 697) EGFR (BEAKER) (test 24 mL/min/1.73 ESTIMA TANJA GFR IS code = 1092) sq m NOT ACCURATE CREATININE CLEARANCE IN PREDICTING GLOMERULAR FILTRATION RATE . ESTIMATED GFR I S NOT APPLICABLE FOR DIALYSIS PATIEN TS. CALCIUM, [id number] 05:23:00 Test Item Value Reference Range Interpretation Comments CALCIUM IONIZED (BEAKER) (test 0.88 mmol/L 1.12-1.27 L code = 698) PH, BLOOD (BEAKER) (test code = 7.50 1810) [id number] 05:22:00 Test Item Value Reference Range Interpretation Comments PHOSPHORUS (BEAKER) (test code = 3.7 mg/dL 2.3-4.7 604) [id number] 05:22:00 Test Item Value Reference Range Interpretation Comments MAGNESIUM (BEAKER) (test code = 1.8 mg/dL 1.6-2.6 627) CBC W/PLT COUNT & AUTO [id number] 05:10:00 Test Item Value Reference Range Interpretation Comments WHITE BLOOD CELL COUNT (BEAKER) 12.5 K/ L 3.5-10.5 H (test code = 775) RED BLOOD CELL COUNT (BEAKER) 2.83 M/ L 4.63-6.08 L (test code = 761) HEMOGLOBIN (BEAKER) (test code = 7.2 GM/DL 13.7-17.5 L 410) HEMATOCRIT (BEAKER) (test code = 22.2 % 40.1-51.0 L 411) MEAN CORPUSCULAR VOLUME (BEAKER) 78.4 fL 79.0-92.2 L (test code = 753) MEAN CORPUSCULAR HEMOGLOBIN 25.4 pg 25.7-32.2 L (BEAKER) (test code = 751) MEAN CORPUSCULAR HEMOGLOBIN CONC 32.4 GM/DL 32.3-36.5 (BEAKER) (test code = 752) RED CELL DISTRIBUTION WIDTH 16.4 % 11.6-14.4 H (BEAKER) (test code = 412) PLATELET COUNT (BEAKER) (test 128 K/CU MM 150-450 L code = 756) MEAN PLATELET VOLUME (BEAKER) 12.1 fL 9.4-12.4 (test code = 754) NUCLEATED RED BLOOD CELLS 0 /100 WBC 0-0 (BEAKER) (test code = 413) NEUTROPHILS RELATIVE PERCENT 86 % (BEAKER) (test code = 429) LYMPHOCYTES RELATIVE PERCENT 5 % (BEAKER) (test code = 430) MONOCYTES RELATIVE PERCENT 8 % (BEAKER) (test code = 431) EOSINOPHILS RELATIVE PERCENT 0 % (BEAKER) (test code = 432) BASOPHILS RELATIVE PERCENT 0 % (BEAKER) (test code = 437) NEUTROPHILS ABSOLUTE COUNT 10.79 K/ L 1.78-5.38 H (BEAKER) (test code = 670) LYMPHOCYTES ABSOLUTE COUNT 0.61 K/ L 1.32-3.57 L (BEAKER) (test code = 414) MONOCYTES ABSOLUTE COUNT (BEAKER) 0.96 K/ L 0.30-0.82 H (test code = 415) EOSINOPHILS ABSOLUTE COUNT 0.05 K/ L 0.04-0.54 (BEAKER) (test code = 416) BASOPHILS ABSOLUTE COUNT (BEAKER) 0.02 K/ L 0.01-0.08 (test code = 417) IMMATURE GRANULOCYTES-RELATIVE 0 % 0-1 PERCENT (BEAKER) (test code = 2801) HEMOGLOBIN AND [id number] 00:40:00 Test Item Value Reference Range Interpretation Comments HEMOGLOBIN (BEAKER) (test code = 7.1 GM/DL 13.7-17.5 L 410) HEMATOCRIT (BEAKER) (test code = 21.6 % 40.1-51.0 L 411) Send specimen after 2 units PRBC transfusion is completedPOCT-GLUCOSE METER 2017-10-23 21:20:00 Test Item Value Reference Range Interpretation Comments POC-GLUCOSE METER 114 mg/dL 70-[address] [facility] [address] ([facility]) (test code = [place] 1538) [address] POCT-GLUCOSE [id number] 17:14:00 Test Item Value Reference Range Interpretation Comments POC-GLUCOSE METER 92 mg/dL 70-[address] [facility] [address] ([facility]) (test code = [place] [address] 1538) ANG, EMBOLIZATION, EXTENSIVE - [id number] 15:08:00Reason for exam:- >left kidney intraparenchymal hemorrhageReason for exam:->please review filmsand consider embolization, please call Dr Duke with urology to discuss- [phone] REPORT Renal arteriogram: Pertinent clinical information: Left [...] sterile drape, sterile gown, and a cutaneous anti septic was utilized. Technique: After informed written consent was obtained, the patient was prepped and draped in the usual sterile manner. Access was obtained with a 19 gauge needle, and the right common femoral artery was catheterized. A guide wire was advanced centrally. A 5 Italian catheter was advanced with its distal tip terminating in the abdominal aorta at the level of the renal arteries. Vital signs were monitored throughout the procedure by a nurse, and remained stable. The patient tolerated the procedure well and left the department in the same condition. Results: Left renal arteriogram:Secondary to an elevated creatinine the main renal [...] contrast from a recent CT scan. Signed: Tia Ashford Verified Date/Time: 10/23/201715:08:40 Reading Location: [place] [address] Angio Body Reading Room URINE CULTURE 2017-10-23 10:50:00 Test Item Value Reference Range Interpretation Comments CULTURE (BEAKER) (test code = 1095) No growth [id number] 10:38:00 Test Item Value Reference Range Interpretation Comments PROTIME (BEAKER) (test code = 17.5 seconds 11.7-14.7 H 759) INR (BEAKER) (test code = 370) 1.4 <=5.9 PARTIAL THROMBOPLASTIN TIME 34.3 seconds 22.5-36.0 (BEAKER) (test code = 760) RECOMMENDED COUMADIN/WARFARIN INR THERAPY RANGESSTANDARD DOSE: 2.0 - 3.0 Includes: PROPHYLAXIS forvenous thrombosis, systemic embolization; TREATMENT for venous thrombosis and/or pulmonary embolus.HIGH RISK: Target INR is 2.5-3.5 for patients with mechanical heart valves.CBC W/PLT COUNT & AUTO DIFFERENTIAL 2017-10-23 08:42:00 Test Item Value Reference Range Interpretation Comments WHITE BLOOD CELL COUNT 14.4 K/ L 3.5-10.5 H (BEAKER) (test code = 775) RED BLOOD CELL COUNT 2.45 M/ L 4.63-6.08 L (BEAKER) (test code = 761) HEMOGLOBIN (BEAKER) 5.9 GM/DL 13.7-17.5 LL (test code = 410) HEMATOCRIT (BEAKER) 18.6 % 40.1-51.0 L (test code = 411) MEAN CORPUSCULAR 75.9 fL 79.0-92.2 L VOLUME (BEAKER) (test code = 753) MEAN CORPUSCULAR 24.1 pg 25.7-32.2 L HEMOGLOBIN (BEAKER) (test code = 751) MEAN CORPUSCULAR 31.7 GM/DL 32.3-36.5 L HEMOGLOBIN CONC (BEAKER) (test code = 752) RED CELL DISTRIBUTION 15.8 % 11.6-14.4 H WIDTH (BEAKER) (test code = 412) PLATELET COUNT 112 K/CU MM 150-450 L (BEAKER) (test code = 756) MEAN PLATELET VOLUME fL 9.4-12.4 Unable to report due (BEAKER) (test code = to abn ormal Platelet 754) population distribution. NUCLEATED RED BLOOD 0 /100 WBC 0-0 CELLS (BEAKER) (test code = 413) NEUTROPHILS RELATIVE 85 % PERCENT (BEAKER) (test code = 429) LYMPHOCYTES RELATIVE 5 % PERCENT (BEAKER) (test code = 430) MONOCYTES RELATIVE 9 % PERCENT (BEAKER) (test code = 431) EOSINOPHILS RELATIVE 1 % PERCENT (BEAKER) (test code = 432) BASOPHILS RELATIVE 0 % PERCENT (BEAKER) (test code = 437) NEUTROPHILS ABSOLUTE 12.25 K/ L 1.78-5.38 H COUNT (BEAKER) (test code = 670) LYMPHOCYTES ABSOLUTE 0.76 K/ L 1.32-3.57 L COUNT (BEAKER) (test code = 414) MONOCYTES ABSOLUTE 1.25 K/ L 0.30-0.82 H COUNT (BEAKER) (test code = 415) EOSINOPHILS ABSOLUTE 0.08 K/ L 0.04-0.54 COUNT (BEAKER) (test code = 416) BASOPHILS ABSOLUTE 0.02 K/ L 0.01-0.08 COUNT (BEAKER) (test code = 417) IMMATURE 1 % 0-1 GRANULOCYTES-RELATIVE PERCENT (BEAKER) (test code = 2801) BASIC METABOLIC [id number] 07:46:00 Test Item Value Reference Range Interpretation Comments SODIUM (BEAKER) 140 meq/L 136-145 (test code = 381) POTASSIUM (BEAKER) 3.9 meq/L 3.5-5.1 (test code = 379) CHLORIDE (BEAKER) 107 meq/L 98-107 (test code = 382) CO2 (BEAKER) (test 24 meq/L 22-29 code = 355) BLOOD UREA NITROGEN 50 mg/dL 7-21 H (BEAKER) (test code = 354) CREATININE (BEAKER) 3.68 mg/dL 0.57-1.25 H (test code = 358) GLUCOSE RANDOM 110 mg/dL 70-105 H (BEAKER) (test code = 652) CALCIUM (BEAKER) 7.2 mg/dL 8.4-10.2 L (test code = 697) EGFR (BEAKER) (test 20 mL/min/1.73 ESTIMA TANJA GFR IS code = 1092) sq m NOT ACCURATE CREATININE CLEARANCE IN PREDICTING GLOMERULAR FILTRATION RATE . ESTIMATED GFR I S NOT APPLICABLE FOR DIALYSIS PATIEN TS. [id number] 07:41:00 Test Item Value Reference Range Interpretation Comments PHOSPHORUS (BEAKER) (test code = 3.5 mg/dL 2.3-4.7 604) [id number] 07:41:00 Test Item Value Reference Range Interpretation Comments MAGNESIUM (KISHAN) (test code = 1.8 mg/dL 1.6-2.6 627) POCT-GLUCOSE [id number] 07:13:00 Test Item Value Reference Range Interpretation Comments POC-GLUCOSE METER 124 mg/dL 70-[address] [facility] [address] (KISHAN) (test code = [place] 1538) [id number] CT, [id number] 00:22:00FINAL REPORT CT, ABDOMEN \T\ PELVIS, WITHOUT IV CONTRAST INDICATION: hematomakidney COMPARISON: [...] reactive changes involving both lateral conal and Gerota's fascia.Bladder and reproductive organs: Urinary bladder is decompressed by Moody catheter. Prior prostatectomy. Regional lymph node dissection noted. Stomach and Duodenum: No significant findings.Smalland large intestine: Normal calibers.Appendix: Normal. Major vascular structures: Normal aortic calib er.Peritoneum and retroperitoneum: No free air, fluid or adenopathy. Skeleton: No acute bony abnormality.Additional findings: None. IMPRESSION: Noncontrast examination demonstrating a large parenchymal/intracapsular hematoma of the left kidney. Approximate measurements are 14.7 x 15.7 x 10 cm. Associated perinephric hematoma measuring 12.7 x 2.7 x 9.3 cm. Regional mass effect without evidence for bowel obstruction. Signed: JR Kashmir, Soraya Hayes Verified Date/Time: 10/23/2017 00:22:43 Reading Location: [facility] C013Y CT Body Reading Room CREATINE KINASE (CK)2017-10-22 21:31:00 Test Item Value Reference Range Interpretation Comments CREATINE KINASE TOTAL (BEAKER) (test 167 U/L 29-200 code = 380) LACTIC ACID, VENOUS, WHOLE [id number] 21:24:00 Test Item Value Reference Range Interpretation Comments LACTATE BLOOD VENOUS (2) (BEAKER) 0.8 mmol/L 0.5-2.2 (test code = 2872) Effective 03/15/2016: Units/Reference Range ChangeNew: 0.5-2.2 mmol/L Previous: 5-20 mg/dLPOCT-GLUCOSE [id number] 21:23:00 Test Item Value Reference Range Interpretation Comments POC-GLUCOSE METER 130 mg/dL 70-[address] [facility] [address] (BEAKER) (test code = [place] 1538) [id number] SODIUM, RANDOM [id number] 20:29:00 Test Item Value Reference Range Interpretation Comments SODIUM URINE (BEAKER) (test code = 24 meq/L 243) Reference Range: No NormalsCREATININE, RANDOM [id number] 20:27:00 Test Item Value Reference Range Interpretation Comments CREATININE URINE (BEAKER) (test 155.1 mg/dL code = 375) Reference Range: No NormalsPROTEIN, RANDOM [id number] 20:27:00 Test Item Value Reference Range Interpretation Comments PROTEIN, URINE (BEAKER) (test code = 60 mg/dL 0-14 H 1569) URINALYSIS W/ [id number] 20:27:00 Test Item Value Reference Range Interpretation Comments COLOR (BEAKER) (test code = 470) Yellow CLARITY (BEAKER) (test code = Hazy 469) SPECIFIC GRAVITY UA (BEAKER) 1.010 1.001-1.035 (test code = 468) PH UA (BEAKER) (test code = 467) 5.0 5.0-8.0 PROTEIN UA (BEAKER) (test code = 70 mg/dL Negative A 464) GLUCOSE UA (BEAKER) (test code = Negative Negative 365) KETONES UA (BEAKER) (test code = Negative Negative 371) BILIRUBIN UA (BEAKER) (test code Negative Negative = 462) BLOOD UA (BEAKER) (test code = Moderate Negative A 461) NITRITE UA (BEAKER) (test code = Negative Negative 465) LEUKOCYTE ESTERASE UA (BEAKER) Large Negative A (test code = 466) UROBILINOGEN UA (BEAKER) (test 0.2 mg/dL 0.2-1.0 code = 463) RBC UA (BEAKER) (test code = 85 /HPF 519) WBC UA (BEAKER) (test code = 0 /HPF 520) BACTERIA (BEAKER) (test code = Many 517) MUCUS (BEAKER) (test code = Few 1574) SQUAMOUS EPITHELIAL (BEAKER) 5 /HPF (test code = 516) CASTS (BEAKER) (test code = 5 /LPF 1579) CRYSTALS, URINE (BEAKER) (test Moderate code = 1521) YEAST (BEAKER) (test code = Few 1585) SOURCE(BEAKER) (test code = Urine, Moody 1777) POCT-GLUCOSE [id number] 17:05:00 Test Item Value Reference Range Interpretation Comments POC-GLUCOSE METER 113 mg/dL 70-110 H TESTED AT [place] [address] ([facility] (test code = [place] 1538) [address] [id number] 16:24:00 Test Item Value Reference Range Interpretation Comments PROSTATE SPECIFIC ANTIGEN (BEAKER) 0.0 ng/mL 0.0-4.0 (test code = 844) POCT-GLUCOSE [id number] 11:21:00 Test Item Value Reference Range Interpretation Comments POC-GLUCOSE METER 146 mg/dL 70-110 H TESTED AT [place] [address] ([facility]) (test code = [place] 1538) [id number] HEMOGLOBIN AND [id number] 11:19:00 Test Item Value Reference Range Interpretation Comments HEMOGLOBIN (BEAKER) (test code = 6.4 GM/DL 13.7-17.5 L 410) HEMATOCRIT (BEAKER) (test code = 20.0 % 40.1-51.0 L 411) U/S, RENAL, [id number] 09:08:00Reason for exam:->left intraparenchymal hematoma on CTFINAL REPORT Renal ultrasound dated 10/22/2017 Comment: Real-time transabdominal renal ultrasound was performed.Right kidney measures 13.9 x 7.0 x 5.7 cm. Left kidney measures 18.3 x 9.7 x 9.2 cm. Right renal [...] MRI examination with renal protocol. Signed: Annabel Pooleeport Verified Date/Time: 10/22/2017 09:08:47 Reading Location: [address] Ultrasound Reading Room POCT-GLUCOSE [id number] 08:05:00 Test Item Value Reference Range Interpretation Comments POC-GLUCOSE METER 154 mg/dL 70-[address] [facility] [address] (BEAKER) (test code = [place] 1538) [id number] URINALYSIS W/ [id number] 07:56:00 Test Item Value Reference Range Interpretation Comments COLOR (BEAKER) (test code = Yellow 470) CLARITY (BEAKER) (test code = Hazy 469) SPECIFIC GRAVITY UA (BEAKER) 1.013 1.001-1.035 (test code = 468) PH UA (BEAKER) (test code = 5.0 5.0-8.0 467) PROTEIN UA (BEAKER) (test code 100 mg/dL Negative A = 464) GLUCOSE UA (BEAKER) (test code Negative Negative = 365) KETONES UA (BEAKER) (test code Negative Negative = 371) BILIRUBIN UA (BEAKER) (test Negative Negative code = 462) BLOOD UA (BEAKER) (test code = Moderate Negative A 461) NITRITE UA (BEAKER) (test code Negative Negative = 465) LEUKOCYTE ESTERASE UA (BEAKER) Negative Negative (test code = 466) UROBILINOGEN UA (BEAKER) (test 0.2 mg/dL 0.2-1.0 code = 463) RBC UA (BEAKER) (test code = 13 /HPF 519) WBC UA (BEAKER) (test code = 1 /HPF 520) BACTERIA (BEAKER) (test code = Rare 517) MUCUS (BEAKER) (test code = Rare 1574) SQUAMOUS EPITHELIAL (BEAKER) 1 /HPF (test code = 516) HYALINE CASTS (BEAKER) (test 3 /LPF code = 514) AMORPHOUS CRYSTALS (BEAKER) Rare (test code = 1584) SOURCE(BEAKER) (test code = Urine, Voided 2941) COMPREHENSIVE METABOLIC [id number] 07:45:00 Test Item Value Reference Range Interpretation Comments TOTAL PROTEIN 6.2 gm/dL 6.0-8.3 (BEAKER) (test code = 770) ALBUMIN (BEAKER) 3.4 g/dL 3.5-5.0 L (test code = 1145) ALKALINE PHOSPHATASE 53 U/L 40-150 (BEAKER) (test code = 346) BILIRUBIN TOTAL 0.5 mg/dL 0.2-1.2 (BEAKER) (test code = 377) SODIUM (BEAKER) (test 141 meq/L 136-145 code = 381) POTASSIUM (BEAKER) 4.2 meq/L 3.5-5.1 (test code = 379) CHLORIDE (BEAKER) 105 meq/L 98-107 (test code = 382) CO2 (BEAKER) (test 21 meq/L 22-29 L code = 355) BLOOD UREA NITROGEN 44 mg/dL 7-21 H (BEAKER) (test code = 354) CREATININE (BEAKER) 4.16 mg/dL 0.57-1.25 H (test code = 358) GLUCOSE RANDOM 121 mg/dL 70-105 H (BEAKER) (test code = 652) CALCIUM (BEAKER) 7.6 mg/dL 8.4-10.2 L (test code = 697) AST (SGOT) (BEAKER) 12 U/L 5-34 (test code = 353) ALT (SGPT) (BEAKER) 7 U/L 6-55 (test code = 347) EGFR (BEAKER) (test 17 mL/min/1.73 ESTIMA TANJA GFR IS code = 1092) sq m NOT ACCURATE CREATININE CLEARANCE IN PREDICTING GLOMERULAR FILTRATION RATE . ESTIMATED GFR I S NOT APPLICABLE FOR DIALYSIS PATIEN TS. CBC W/PLT COUNT & AUTO [id number] 05:44:00 Test Item Value Reference Range Interpretation Comments WHITE BLOOD CELL COUNT (BEAKER) 17.6 K/ L 3.5-10.5 H (test code = 775) RED BLOOD CELL COUNT (BEAKER) 3.06 M/ L 4.63-6.08 L (test code = 761) HEMOGLOBIN (BEAKER) (test code = 7.2 GM/DL 13.7-17.5 L 410) HEMATOCRIT (BEAKER) (test code = 22.7 % 40.1-51.0 L 411) MEAN CORPUSCULAR VOLUME (BEAKER) 74.2 fL 79.0-92.2 L (test code = 753) MEAN CORPUSCULAR HEMOGLOBIN 23.5 pg 25.7-32.2 L (BEAKER) (test code = 751) MEAN CORPUSCULAR HEMOGLOBIN CONC 31.7 GM/DL 32.3-36.5 L (BEAKER) (test code = 752) RED CELL DISTRIBUTION WIDTH 15.2 % 11.6-14.4 H (BEAKER) (test code = 412) PLATELET COUNT (BEAKER) (test 199 K/CU MM 150-450 code = 756) MEAN PLATELET VOLUME (BEAKER) 13.8 fL 9.4-12.4 H (test code = 754) NUCLEATED RED BLOOD CELLS 0 /100 WBC 0-0 (BEAKER) (test code = 413) NEUTROPHILS RELATIVE PERCENT 88 % (BEAKER) (test code = 429) LYMPHOCYTES RELATIVE PERCENT 5 % (BEAKER) (test code = 430) MONOCYTES RELATIVE PERCENT 6 % (BEAKER) (test code = 431) EOSINOPHILS RELATIVE PERCENT 0 % (BEAKER) (test code = 432) BASOPHILS RELATIVE PERCENT 0 % (BEAKER) (test code = 437) NEUTROPHILS ABSOLUTE COUNT 15.47 K/ L 1.78-5.38 H (BEAKER) (test code = 670) LYMPHOCYTES ABSOLUTE COUNT 0.88 K/ L 1.32-3.57 L (BEAKER) (test code = 414) MONOCYTES ABSOLUTE COUNT (BEAKER) 1.12 K/ L 0.30-0.82 H (test code = 415) EOSINOPHILS ABSOLUTE COUNT 0.00 K/ L 0.04-0.54 L (BEAKER) (test code = 416) BASOPHILS ABSOLUTE COUNT (BEAKER) 0.02 K/ L 0.01-0.08 (test code = 417) IMMATURE GRANULOCYTES-RELATIVE 1 % 0-1 PERCENT (BEAKER) (test code = 2801) POCT-GLUCOSE [id number] 22:09:00 Test Item Value Reference Range Interpretation Comments POC-GLUCOSE METER 165 mg/dL 70-110 H TESTED AT [place] [address] ([facility]) (test code = [facility] [employer] [facility] 1538) [id number] 16:51:00 Test Item Value Reference Range Interpretation Comments PROTIME (BEAKER) (test code = 17.9 seconds 11.7-14.7 H 759) INR ([facility]) (test code = 370) 1.5 <=5.9 PARTIAL THROMBOPLASTIN TIME 23.0 seconds 22.5-36.0 (BEAKER) (test code = 760) RECOMMENDED COUMADIN/WARFARIN INR THERAPY RANGESSTANDARD DOSE: 2.0 - 3.0 Includes: PROPHYLAXIS forvenous thrombosis, systemic embolization; TREATMENT for venous thrombosis and/or pulmonary embolus.HIGH RISK: Target INR is 2.5-3.5 for patients with mechanical heart valves.POCT-GLUCOSE [id number] 16:36:00 Test Item Value Reference Range Interpretation Comments POC-GLUCOSE METER 222 mg/dL 70-110 H TESTED AT [place] [address] ([facility]) (test code = [facility] [employer] [place] 1538) [address]
--- NOTE | 2020-09-02 17:19 | RAD REPORT ---
EXAM DESCRIPTION: RAD - Chest Single View - 09/02/2020 5:12 pm CLINICAL HISTORY: weakness, fever Chest pain. COMPARISON: Chest Single View dated 11/11/2019; Chest Single View dated 08/19/2019; Chest Single View dated 08/13/2019; Chest Single View dated 08/07/2019 FINDINGS: Portable technique limits examination quality. Mild interstitial pulmonary edema. The heart is moderately enlarged. No displaced fractures. IMPRESSION: Mild CHF.
[2020-09-02 17:44] LABS: Absolute Lymphocytes (CBC) 0.2 K/uL (0.7-4.9); Basophils % 0.3 % (0-1.3); Hematocrit 33.4 % (39.6-49.0); Lymphocytes % 1.3 % (15.3-44.8); MPV 9.2 fL (7.6-11.3); RBC Red Blood Cell Count 4.36 M/uL (4.33-5.43)
[2020-09-02 17:47] LABS: Protime INR 1.19
[2020-09-02 18:08] LABS: ALT/SGPT 12 U/L (12-78); Alkaline Phosphatase 65 U/L (45-117); BUN Blood Urea Nitrogen 21 mg/dL (7-18); Bicarbonate 29 mmol/L (21-32); Bilirubin Direct 0.1 mg/dL (0-0.2); Glucose Level 111 mg/dL (74-106); Sodium Level 137 mmol/L (136-145)
[2020-09-02 18:09] LABS: AST/SGOT 23 U/L (15-37); Albumin 3.2 g/dL (3.4-5.0); Amylase 164 U/L (25-115); CKMB Creatine Kinase MB < 1.0 ng/mL (0.3-3.6); Creatine Phosphokinase 145 U/L (39-308); Lipase 97 U/L (73-393); Potassium 4.2 mmol/L (3.5-5.1); Protein, Total 7.4 g/dL (6.4-8.2); Troponin (Emerg Dept Use Only) < 0.02 ng/mL (0.0-0.045)
--- NOTE | 2020-09-02 19:13 | EDPHYS ---
Physician Documentation [facility] Name: Steve Lopez Jr Age: 79 yrs Sex: Male : 1940 Arrival Date: 09/02/2020 Time: 15:09 Bed 6 Private MD: Sebastian Roth T ED Physician Saturnino Kaplan HPI: 09/03 16:14 This 79 yrs old Black Male presents to ER via Wheelchair with complaints of General kdr Weakness. 16:14 The patient has been generally weak since awakening this morning. He went to dialysis kdr and was not feeling any better and was noted to have a fever and was sent to the ED for eval. he has no focal c/o. Onset: The symptoms/episode began/occurred gradually, this morning. Severity of symptoms: At their worst the symptoms were mild in the emergency department the symptoms are unchanged. The patient has not experienced similar symptoms in the past. The patient has not recently seen a physician. Historical: - Allergies: 09/02 15:20 No Known Allergies; hb - Home Meds: 15:20 atorvastatin 10 mg Oral tab 1 tab once daily [Active]; calcitriol 0.25 mcg Oral cap 1 hb cap once daily [Active]; carvedilol 6.25 mg Oral tab 1 tab 2 times per day [Active]; clonidine HCl 0.3 mg Oral tab 1 tab three times a day [Active]; doxazosin 2 mg Oral tab 1 tab once daily [Active]; - PMHx: 15:20 Glaucoma; heart attack; Hypertension; kidney disease; Prostate Cancer; Diabetes - IDDM; hb - Immunization history:: Adult Immunizations up to date. - Social history:: Smoking status: Patient denies any tobacco usage or history of. ROS: 09/03 16:14 Constitutional: Negative for chills, and weight loss - he has had fever Eyes: Negative kdr for injury, pain, redness, and discharge, ENT: Negative for injury, pain, and discharge, Neck: Negative for injury, pain, and swelling, Cardiovascular: Negative for chest pain, palpitations, and edema, Respiratory: Negative for shortness of breath, cough, wheezing, and pleuritic chest pain, Abdomen/GI: Negative for abdominal pain, nausea, vomiting, diarrhea, and constipation, Back: Negative for injury and pain, : Negative for injury, bleeding, discharge, and swelling, MS/Extremity: Negative for injury and deformity, Skin: Negative for injury, rash, and discoloration, Neuro: Negative for headache, weakness, numbness, tingling, and seizure activity. Psych: Negative for depression, anxiety, suicide ideation, homicidal ideation, and hallucinations, Allergy/Immunology: Negative for hives, rash, and allergies, Endocrine: Negative for neck swelling, polydipsia, polyuria, polyphagia, and marked weight changes, Hematologic/Lymphatic: Negative for swollen nodes, abnormal bleeding, and unusual bruising. 16:14 Neuro: Positive for weakness. kdr Exam: 16:14 Constitutional: This is a well developed, well nourished patient who is awake, alert, kdr and in no acute distress. Head/Face: Normocephalic, atraumatic. Eyes: Pupils equal round and reactive to light, extra-ocular motions intact. Lids and lashes normal. Conjunctiva and sclera are non-icteric and not injected. Cornea within normal limits. Periorbital areas with no swelling, redness, or edema. Neck: Trachea midline, no thyromegaly or masses palpated, and no cervical lymphadenopathy. Supple, full range of motion without nuchal rigidity, or vertebral point tenderness. No Meningismus. Chest/axilla: Normal chest wall appearance and motion. Nontender with no deformity. No lesions are appreciated. Cardiovascular: Regular rate and rhythm with a normal S1 and S2. No gallops, murmurs, or rubs. Normal PMI, no JVD. No pulse deficits. Respiratory: Lungs have equal breath sounds bilaterally, clear to auscultation and percussion. No rales, rhonchi or wheezes noted. No increased work of breathing, no retractions or nasal flaring. Abdomen/GI: Soft, non-tender, with normal bowel sounds. No distension or tympany. No guarding or rebound. No evidence of tenderness throughout. Back: No spinal tenderness. No costovertebral tenderness. Full range of motion. Skin: Warm, dry with normal turgor. Normal color with no rashes, no lesions, and no evidence of cellulitis. MS/ Extremity: Pulses equal, no cyanosis. Neurovascular intact. Full, normal range of motion. Psych: Awake, alert, with orientation to person, place and time. Behavior, mood, and affect are within normal limits. Vital Signs: 09/02 15:17 BP 103 / 88; Pulse 81; Resp 16; Temp 101.8(TE); Pulse Ox 100% on R/A; Weight 90.72 kg; hb Height 5 ft. 11 in. (180.34 cm); Pain 0/10; 17:59 BP 133 / 57; Pulse 67; Resp 16; Temp 99.8(TE); Pulse Ox 97% on R/A; Pain 0/10; iw 19:15 BP 146 / 64; Pulse 74; Resp 16; Pulse Ox 97% on R/A; iw 20:13 BP 140 / 62; Pulse 70; Resp 15; Pulse Ox 100% on R/A; ll2 21:35 BP 109 / 68; Pulse 83; Resp 35; Pulse Ox 98% ; ll2 22:13 BP 163 / 63; Pulse 69; Resp 18; Pulse Ox 100% on R/A; ll2 15:17 Body Mass Index 27.89 (90.72 kg, 180.34 cm) hb MDM: 19:12 Patient medically screened. kdr 09/03 16:18 Data reviewed: vital signs, nurses notes, lab test result(s), radiologic studies. kdr Counseling: I had a detailed discussion with the patient and/or guardian regarding: the historical points, exam findings, and any diagnostic results supporting the discharge/admit diagnosis, lab results, radiology results, the need for outpatient follow up. 09/02 16:23 Order name: Amylase, Serum; Complete Time: 18:51 iw 09/02 16:23 Order name: Basic Metabolic Panel; Complete Time: 18:51 iw 09/02 16:23 Order name: Blood Culture Adult (2) 09/02 16:23 Order name: CBC with Diff; Complete Time: 18:09 iw 09/02 16:23 Order name: Ckmb; Complete Time: 18:52 iw 09/02 16:23 Order name: CPK; Complete Time: 18:52 iw 09/02 16: Order name: Lactate; Complete Time: 18:52 iw 09/02 16: Order name: LFT's; Complete Time: 18:52 iw 09/02 16:23 Order name: Lipase; Complete Time: 18:52 iw 09/02 16: Order name: Procalcitonin; Complete Time: 18:52 iw 09/02 16:23 Order name: Protime (+inr); Complete Time: 18:09 09/02 16:23 Order name: Ptt, Activated; Complete Time: 18:09 09/02 16:23 Order name: Troponin (emerg Dept Use Only); Complete Time: 18:52 09/02 16:23 Order name: Urine Microscopic Only 09/02 16:23 Order name: Chest Single View XRAY; Complete Time: 18:09 09/02 16:23 Order name: Accucheck; Complete Time: 18:00 09/02 16:23 Order name: Cardiac monitoring; Complete Time: 18:00 09/02 16:26 Order name: Flu; Complete Time: 18:57 09/02 18:53 Order name: COVID-19 aa5 09/02 18:53 Order name: CORONAVIRUS EDPR 09/02 19:13 Order name: Urine Culture kdr 09/02 19:25 Order name: SARS-COV-2 RT PCR; Complete Time: 20:10 EDPR 09/02 19:58 Order name: CONS Physician Consult [facility] 09/02 21:17 Order name: Urine Dipstick--Ancillary (enter results) ar5 09/02 21:34 Order name: Urine Dipstick-Ancillary [facility] 09/02 16:23 Order name: EKG - Nurse/Tech; Complete Time: 22:07 09/02 16:23 Order name: IV Saline Lock - Large Bore; Complete Time: 18:00 09/02 16:23 Order name: Labs collected and sent; Complete Time: 18:00 09/02 16:23 Order name: O2 Per Protocol; Complete Time: 18:01 09/02 16:23 Order name: O2 Sat Monitoring; Complete Time: 18:01 09/02 16:23 Order name: Urine Dipstick-Ancillary (obtain specimen); Complete Time: 22:07 Administered Medications: 09/02 15:27 Drug: Tylenol 650 mg Route: PO; hb 19:55 Follow up: Response: No adverse reaction rv 19:15 Drug: Rocephin 2 grams Route: IV; Rate: calculated rate; Site: right upper arm; rv 20:18 Follow up: IV Status: Completed infusion rv 19:16 Not Given (dialysis/chf ): NS 0.9% (30 ml/kg) 30 ml/kg IV at bolus once; Sepsis Protocoliw 19:20 Drug: LevaQUIN 500 mg Volume: 100 ml; Route: IVPB; Infused Over: 60 mins; Site: right rv upper arm; 20:18 Follow up: IV Status: Completed infusion; IV Intake: 100ml rv Disposition: 09/02/20 19:12 Hospitalization ordered by Good Castillo for Observation. Preliminary diagnosis are Fever, unspecified, Weakness, Congtestive heart failure. - Bed requested for Telemetry/MedSurg (observation). - Status is Observation. ll2 - Condition is Fair. - Problem is new. - Symptoms have improved. Signatures: Dispatcher [employer] EDMS Saturnino Kaplan MD MD [facility] Carol Sanabria RN RN Chapo Newman PA PA [id number] Katy Corrales RN RN Kenyatta Cantrell RN RN Kyle Carson RN RN rv Alecia Herrera RN RN ll2 Corrections: (The following items were deleted from the chart) 18:16 16:37 CORONAVIRUS+MR.LAB.BRZ ordered. EDPR EDMS 21:30 19:12 Hospitalization Ordered by Good Castillo for Observation. Preliminary diagnosis cg is Fever, unspecified; Weakness; Congtestive heart failure. Bed requested for Telemetry/MedSurg (observation). Status is Observation. Condition is Fair. Problem is new. Symptoms have improved. kdr 22:06 18:59 Moody ordered. jr8 rv 22:39 21:30 09/02/2020 19:12 Hospitalization Ordered by Good Castillo for Observation. ll2 Preliminary diagnosis is Fever, unspecified; Weakness; Congtestive heart failure. Bed requested for Telemetry/MedSurg (observation). Status is Observation. Condition is Fair. Problem is new. Symptoms have improved. cg
--- NOTE | 2020-09-02 19:13 | ER ---
Nurse's Notes [facility] Name: Steve Lopez Jr Age: 79 yrs Sex: Male : 1940 Arrival Date: 09/02/2020 Time: 15:09 Bed 6 Private MD: Sebastian Roth T Diagnosis: Fever, unspecified;Weakness;Congtestive heart failure Presentation: 09/02 15:17 Chief complaint: Generalized weakness upon waking today. Jamshid pain/cough/SOB. hb Coronavirus screen: fever, Client presents with at least one sign or symptom that may indicate coronavirus-19. Standard/surgical mask placed on the client. Provider contacted for isolation considerations. Ebola Screen: No symptoms or risks identified at this time. Initial Sepsis Screen: Does the patient meet any 2 criteria? Temp <36.0*C (96.8*F)) or > 38.3*C (100.9*F). No. Patient's initial sepsis screen is negative. Does the patient have a suspected source of infection? No. Patient's initial sepsis screen is negative. Risk Assessment: Do you want to hurt yourself or someone else? Patient reports no desire to harm self or others. Onset of symptoms was September 02, 2020. 15:17 Method Of Arrival: Wheelchair hb 15:17 Acuity: NATHANIEL 2 hb Historical: - Allergies: 15:20 No Known Allergies; hb - Home Meds: 15:20 atorvastatin 10 mg Oral tab 1 tab once daily [Active]; calcitriol 0.25 mcg Oral cap 1 hb cap once daily [Active]; carvedilol 6.25 mg Oral tab 1 tab 2 times per day [Active]; clonidine HCl 0.3 mg Oral tab 1 tab three times a day [Active]; doxazosin 2 mg Oral tab 1 tab once daily [Active]; - PMHx: 15:20 Glaucoma; heart attack; Hypertension; kidney disease; Prostate Cancer; Diabetes - IDDM; hb - Immunization history:: Adult Immunizations up to date. - Social history:: Smoking status: Patient denies any tobacco usage or history of. Screenin:00 Abuse screen: Denies threats or abuse. Denies injuries from another. Nutritional iw screening: No deficits noted. Tuberculosis screening: No symptoms or risk factors identified. Fall Risk None identified. Assessment: 16:50 General: Appears in no apparent distress. Behavior is calm, cooperative. Pain: Denies iw pain. Neuro: Level of Consciousness is awake, alert, obeys commands, Oriented to person, place, time, situation, Moves all extremities. Cardiovascular: Patient's skin is warm and dry. Dialysis shunt: in the left bicep, with palpable thrill, with auscultated bruit, with no erythema, with no edema, no bleeding noted. Respiratory: Respiratory effort is even, unlabored, Respiratory pattern is regular, symmetrical. Derm: Skin is intact, is healthy with good turgor. Musculoskeletal: Range of motion: limited in all extremities. 17:59 Reassessment: Patient appears in no apparent distress at this time. Patient and/or iw family updated on plan of care and expected duration. Pain level reassessed. Patient is alert, oriented x 3, equal unlabored respirations, skin warm/dry/pink. awaiting lab results Patient denies pain at this time. Patient states feeling better. 19:00 Reassessment: Patient appears in no apparent distress at this time. Patient and/or iw family updated on plan of care and expected duration. Pain level reassessed. Patient is alert, oriented x 3, equal unlabored respirations, skin warm/dry/pink. pt given sandwich and diet soda, advised that we still need a urine specimen. 20:12 Reassessment: Patient and/or family updated on plan of care and expected duration. Pain ll2 level reassessed. Patient is alert, oriented x 3, equal unlabored respirations, skin warm/dry/pink. introduced self, pt and family updated on waiting time for hospital bed. 21:41 Reassessment: Patient and/or family updated on plan of care and expected duration. Pain ll2 level reassessed. Patient is alert, oriented x 3, equal unlabored respirations, skin warm/dry/pink. report given to LUIS A stephens. 22:12 Reassessment: Patient and/or family updated on plan of care and expected duration. Pain ll2 level reassessed. Patient is alert, oriented x 3, equal unlabored respirations, skin warm/dry/pink. 22:12 Reassessment: repeat lactate sent to lab. ll2 Vital Signs: 15:17 BP 103 / 88; Pulse 81; Resp 16; Temp 101.8(TE); Pulse Ox 100% on R/A; Weight 90.72 kg; hb Height 5 ft. 11 in. (180.34 cm); Pain 0/10; 17:59 BP 133 / 57; Pulse 67; Resp 16; Temp 99.8(TE); Pulse Ox 97% on R/A; Pain 0/10; iw 19:15 BP 146 / 64; Pulse 74; Resp 16; Pulse Ox 97% on R/A; iw 20:13 BP 140 / 62; Pulse 70; Resp 15; Pulse Ox 100% on R/A; ll2 21:35 BP 109 / 68; Pulse 83; Resp 35; Pulse Ox 98% ; ll2 22:13 BP 163 / 63; Pulse 69; Resp 18; Pulse Ox 100% on R/A; ll2 15:17 Body Mass Index 27.89 (90.72 kg, 180.34 cm) hb ED Course: 15:09 Patient arrived in ED. ag5 15:09 Sebastian Roth MD is Private Physician. ag5 15:19 Triage completed. hb 15:20 Arm band placed on. hb 15:58 Carol Sanabria, LUIS A is Primary Nurse. iw 16:14 Saturnino Kaplan MD is Attending Physician. kdr 17:10 Initial lab(s) drawn, by me, sent to lab. Inserted saline lock: 20 gauge in right upper iw arm, using aseptic technique. Blood collected. 17:12 Chest Single View XRAY In Process Unspecified. EDMS 19:11 Good Castillo is Hospitalizing Provider. kdr 22:39 Patient has correct armband on for positive identification. Placed in gown. Bed in low ll2 position. Call light in reach. Side rails up X2. property assessment monitor on. Pulse ox on. NIBP on. 22:39 No provider procedures requiring assistance completed. Patient admitted, IV remains in ll2 place. Administered Medications: 15:27 Drug: Tylenol 650 mg Route: PO; hb 19:55 Follow up: Response: No adverse reaction rv 19:15 Drug: Rocephin 2 grams Route: IV; Rate: calculated rate; Site: right upper arm; rv 20:18 Follow up: IV Status: Completed infusion rv 19:16 Not Given (dialysis/chf ): NS 0.9% (30 ml/kg) 30 ml/kg IV at bolus once; Sepsis Protocoliw 19:20 Drug: LevaQUIN 500 mg Volume: 100 ml; Route: IVPB; Infused Over: 60 mins; Site: right rv upper arm; 20:18 Follow up: IV Status: Completed infusion; IV Intake: 100ml rv Intake: 20:18 IV: 100ml; Total: 100ml. rv Outcome: 19:12 Decision to Hospitalize by Provider. kdr 22:39 Admitted to Med/surg accompanied by tech, via stretcher, Report called to LUIS A STEPHENS ll2 22:39 Condition: stable 22:39 Instructed on the need for admit. 22:39 Patient left the ED. ll2 Signatures: Dispatcher [employer] EDMS Saturnino Kaplan MD MD kdr Carol Sanabria RN RN iw Kenyatta Cantrell RN RN hb Vicente, Ronaldo, RN RN rv Gaskin, Ajare [facility] Alecia Herrera RN RN ll2 Corrections: (The following items were deleted from the chart) 15:26 15:17 Acuity: NATHANIEL 3 hb hb
[2020-09-02] MEDS ORDERED: CEFTRIAXONE/SWI 1gm 2 GM/20 ML SYR ONE (19:23)
[2020-09-02] MEDS ORDERED: Levofloxacin500mg IV 500 MG/100 ML BAG IV ONE (19:23)
[2020-09-02 21:33] LABS: Urine Blood NEGATIVE (NEG); Urine Glucose NEGATIVE (NEG); Urine Protein 2+ (NEG); Urine pH 5.5 (5.0-7.0)
[2020-09-02 21:45] LABS: Urine Amorphous Sediment 2+ /HPF (NONE SEEN); Urine Bacteria <20 /HPF (NONE SEEN); Urine Culture Reflex Order NOT NEEDED; Urine Mucus 1+ /HPF (NONE SEEN); Urine RBC <5 /HPF (NONE SEEN)
--- NOTE | 2020-09-02 21:51 | P.INFCA ---
Sepsis Focused Assessment - Focused Assessment Complete? Sepsis Focused Assessment Completed?: Yes - Sepsis Screen Result Severe Sepsis: Positive - Evaluation Current stage of sepsis: Severe sepsis - Vital Signs Reviewed: Yes Temperature: 99.8 F Heart rate: 67 Blood Pressure: 133/57 Respiratory Rate: 16 O2 Sat by Pulse Oximetry: 97 - Examination Date exam was performed: 09/02/20 Time exam was performed: 20:00 Heart: Regular rate/rhythm Lungs: Decreased breath sounds (Lower lobes) Peripheral pulses: 2+ Slightly diminished Peripheral pulse location: Radial Capillary refill: <2 Seconds Skin examination: Normal turgor
--- NOTE | 2020-09-02 21:56 | P.HP ---
Certification for Inpatient Patient admitted to: Inpatient With expected LOS: >2 Midnights Patient will require the following post-hospital care: None Practitioner: I am a practitioner with admitting privileges, knowledge of patient current condition, hospital course, and medical plan of care. Services: Services provided to patient in accordance with Admission requirements found in Title 42 Section 412.3 of the Code of Federal Regulations <Gelacio Newman - Last Filed: 09/02/20 21:51> Patient History Date of Service: 09/02/20 Primary Care Provider: Dr. Roth Reason for admission: Sepsis History of Present Illness: This is a 79-year-old male that was brought to the emergency room after having increased weakness and near syncope after dialysis today. Patient stated that he was weak yesterday but denies any other symptoms. Patient was brought in by family and found to have initial temperature of 101.8. Sepsis protocol was initiated at that time and further workup in the emergency room. Patient was found to have a 16.7 and WBC with a pro calcitonin of 3.24. No increase in lactate. Patient has increased vascular changes on chest x-ray consistent with CHF but underlying pneumonia cannot be excluded. No bacteria in his urine and no diabetic wound ulcers or other rashes or signs of cellulitis on his body. Patient has not complained of any abdominal pain or urinary complaints. Patient is still able to urinate twice a day even though he is on dialysis and has end- stage renal disease. Restriction on fluids was held secondary to CHF with mild decrease in bilateral sounds and ESRD. Antibiotics were started in the emergency room. Concern the patient now has sepsis with pneumonia and congestive heart failure and will be admitted as such. Home medications list reviewed: Yes - Past Medical/Surgical History Has patient received pneumonia vaccine in the past: Yes Diabetic: Yes -: Diabetes mellitus type 2 -: Hypertension -: History of prostate cancer with prostatectomy -: Chronic renal disease, multi cystic kidney disease -: CHF -: CAD -: Prostate surgery about 20 years ago Psychosocial/ Personal History: The patient is . He has 3 children. - Family History Family History: Reviewed- Non-Contributory - Family History Father -: Heart disease, Hypertension - Social History Smoking Status: Never smoker Smoking therapy provided: No Alcohol use: No CD- Drugs: No Caffeine use: No Place of Residence: Home <Gelacio Newman - Last Filed: 09/02/20 21:51> Date of Service: 09/03/20 - Family History Father -: Heart disease, Hypertension Mother -: Heart disease <mark ruffin - Last Filed: 09/03/20 12:41> Allergies No Known Allergies Allergy (Verified 01/29/19 10:39) Home Medications: Atorvastatin Calcium 1 tab PO BEDTIME 09/03/20 Carvedilol [Coreg] 1 tab PO DAILY 09/03/20 Clonidine HCl [Catapres] 1 tab PO TID 09/03/20 Clopidogrel Bisulfate [Plavix] 1 tab PO DAILY 09/03/20 Doxazosin [Cardura*] 1 tab PO BEDTIME 09/03/20 Hydralazine HCl 1 tab PO TID 09/03/20 Insulin Degludec [Tresiba Flextouch U-200] 30 unit SQ DAILY 09/03/20 Lidocaine/Prilocaine [Lidocaine-Prilocaine Cream] 1 appl TOP SEECOM 09/03/20 Review of Systems General: Fever, Weakness, Malaise Eyes: Unremarkable ENT: Unremarkable Respiratory: Unremarkable Cardiovascular: Unremarkable Gastrointestinal: Unremarkable Genitourinary: Unremarkable Musculoskeletal: Unremarkable Integumentary: Unremarkable Neurological: Weakness Lymphatics: Unremarkable <SwethakikiGelacio - Last Filed: 09/02/20 21:51> Physical Examination - Vital Signs Temperature: 99.8 F Blood Pressure: 133/57 Pulse: 67 Respirations: 16 Pulse Ox (%): 97 - Physical Exam General: Alert, In no apparent distress, Oriented x3 HEENT: Normocephalic, PERRLA, Mucous membr. moist/pink, EOMI Neck: Supple, 2+ carotid pulse no bruit, No Thyromegaly Respiratory: Diminished (Bibasilar) Cardiovascular: Normal pulses, Regular rate/rhythm, No gallops, No rubs, No murmurs, Edema (2+ lower extremities bilaterally pitting in nature) Capillary refill: <2 Seconds Gastrointestinal: Normal bowel sounds, Soft and benign, Non-distended, No ascites, No tenderness, No masses, No rebound, No guarding Musculoskeletal: No clubbing, No swelling, No contractures, No erythema, No tenderness, No warmth Integumentary: No rashes, No breakdown, No significant lesion, No tenderness/swelling, No erythema, No warmth, No cyanosis Neurological: Normal speech, Normal strength at 5/5 x4 extr, Normal tone, Sensation intact, Cranial nerves 3-12 intact, Normal affect Lymphatics: No axilla or inguinal lymphadenopathy - Studies Laboratory Data (last 24 hrs) 09/02/20 17:20: PT 14.0 H, INR 1.19, APTT 20.4 L 09/02/20 17:20: WBC 16.7 H, Hgb 10.8 L, Hct 33.4 L, Plt Count 196 09/02/20 17:20: Sodium 137, Potassium 4.2, BUN 21 H, Creatinine 4.27 H, Glucose 111 H, Total Bilirubin 1.0, AST 23, ALT 12, Alkaline Phosphatase 65, Amylase 164 H, Lipase 97 Microbiology Data (last 24 hrs): 09/02/20 17:30 Nasopharnyx Influenza Type A Antigen Screen - Final 09/02/20 17:30 Nasopharnyx Influenza Type B Antigen Screen - Final <Gelacio Newman - Last Filed: 09/02/20 21:51> - Studies Laboratory Data (last 24 hrs) 09/02/20 17:20: PT 14.0 H, INR 1.19, APTT 20.4 L 09/02/20 17:20: WBC 16.7 H, Hgb 10.8 L, Hct 33.4 L, Plt Count 196 09/02/20 17:20: Sodium 137, Potassium 4.2, BUN 21 H, Creatinine 4.27 H, Glucose 111 H, Total Bilirubin 1.0, AST 23, ALT 12, Alkaline Phosphatase 65, Amylase 164 H, Lipase 97 Microbiology Data (last 24 hrs): 09/02/20 17:30 Nasopharnyx Influenza Type A Antigen Screen - Final 09/02/20 17:30 Nasopharnyx Influenza Type B Antigen Screen - Final <mark ruffin - Last Filed: 09/03/20 12:41> Assessment and Plan - Problems (Diagnosis) (1) Severe sepsis Current Visit: Yes Status: Acute Plan: Septic protocol has been in place and patient has been started on antibiotics in the emergency room and will be continued on the inpatient floor. Lactate will be trended and hemodynamic status will be assessed continuously. Patient will be given IV fluids as needed for blood pressure management and hydration. Patient at this time not in septic shock. Pending blood cultures at this time. Suspected sources lungs at this time. As skin, abdomen, urine, and fistula all are unremarkable (2) Pneumonia Current Visit: Yes Status: Acute Plan: Patient has been started on antibiotics for the possibility of pneumonia. Patient has breathing treatments ordered as needed and will continue to watch and monitor respiratory status. Qualifiers: Pneumonia type: due to unspecified organism Laterality: unspecified laterality Lung location: unspecified part of lung Qualified Code(s): J18.9 - Pneumonia, unspecified organism (3) Congestive heart failure Current Visit: Yes Status: Chronic Plan: Patient will remain on current blood pressure medications and will be given dialysis on his regular scheduled days which is Sunday and Sunday. Volume status and pulmonary function will be assessed continuously. Qualifiers: Heart failure type: unspecified Heart failure chronicity: chronic Qualified Code(s): I50.9 - Heart failure, unspecified (4) Acute on chronic anemia Current Visit: No Status: Chronic Plan: Hemoglobin hematocrit will be monitored throughout the hospital course. (5) CKD (chronic kidney disease) Onset Date: 11/07/18 Current Visit: No Status: Chronic Plan: Kidney function, GFR, BUN will be monitored throughout stay patient will be dialyzed on his specified days. And as needed if acute worsening. Nephrology has been consulted on the case as well. Qualifiers: Chronic kidney disease stage: on chronic dialysis Qualified Code(s): N18.6 - End stage renal disease; Z99.2 - Dependence on renal dialysis (6) Essential hypertension Current Visit: No Status: Chronic Plan: Patient's blood pressure medicines will be continued in the hospital bearing that he does not have any decrease in his blood pressure is secondary to his sepsis. (7) Type 2 diabetes mellitus Current Visit: No Status: Chronic Plan: Glucose will be maintained at a reasonable level with mild sliding scale at this time based on his glucose level. Qualifiers: Diabetes mellitus exterminator helper termite insulin use: with snf use Diabetes mellitus complication status: with kidney complications Diabetes mellitus complication detail: with chronic kidney disease Chronic kidney disease stage: on chronic dialysis Qualified Code(s): E11.22 - Type 2 diabetes mellitus with diabetic chronic kidney disease; N18.6 - End stage renal disease; Z79.4 - [facility] (current) use of insulin; Z99.2 - Dependence on renal dialysis Discharge Plan: Home Plan to discharge in: Greater than 2 days - Advance Directives Does patient have a Living Will: Yes Does patient have a Durable POA for Healthcare: No Critical Care: No Time Spent Managing Pts Care (In Minutes): 60 <Gelacio Newman - Last Filed: 09/02/20 21:51> Physician Review: Patient Assessed, Agree with Above Assessment and Plan Physician Review Additional Text: Fever. Chest x-ray: No definitive evidence of pneumonia. UA shows no UTI. COVID 19 test is negative. Dialysis access is left AV fistula with no erythema or discharge to suggest infection Source of fever is unknown. Patient admitted to the medical floor. Treat with IV Levaquin and vancomycin Follow cultures. Nephrology consult for hemodialysis. <mark ruffin - Last Filed: 09/03/20 12:41>
[2020-09-02] MEDS ORDERED: GLUCAGON 1 MG/VIAL IM PRN (22:58)
[2020-09-02] MEDS: INSULIN -REGULAR HUMAN 50 UNIT/0.5 ML ML SQ SCH (22:58)
[2020-09-02] MEDS ORDERED: IPRATROPIUM BROM 0.5MG/2.5ML NEB PRN (22:58)
[2020-09-02] MEDS ORDERED: ACETAMINOPHEN 325 MG TABLET PO PRN (22:58)
[2020-09-02] MEDS ORDERED: D50W 25 GM/50 ML SYRINGE/VIAL IV PRN (22:58)
[2020-09-02] MEDS ORDERED: ALBUTEROL 2.5 MG/3 ML NEB SOL NEB PRN (22:58)
[2020-09-02] MEDS ORDERED: cloNIDine HCL 0.1 MG TAB PO SCH (22:58)
[2020-09-02] MEDS ORDERED: ONDANSETRON 4 MG/2 ML VIAL IV PRN (22:58)
[2020-09-02] MEDS: DOXAZOSIN 2 MG TAB PO SCH (23:44)
[2020-09-02] MEDS: carvediloL 6.25 MG TAB PO SCH (23:45)
[2020-09-03 05:45] LABS: Hematocrit 30.7 % (39.6-49.0); RBC Red Blood Cell Count 4.01 M/uL (4.33-5.43)
[2020-09-03 05:46] LABS: Absolute Lymphocytes (CBC) 0.5 K/uL (0.7-4.9); Basophils % 0.5 % (0-1.3); Lymphocytes % 3.4 % (15.3-44.8); MPV 9.1 fL (7.6-11.3)
[2020-09-03 06:04] LABS: Potassium 3.9 mmol/L (3.5-5.1)
[2020-09-03] MEDS ORDERED: CEFTRIAXONE 1,000 MG in WATER FOR INJ,STERILE 10 ML IVP SCH (07:00)
[2020-09-03] MEDS ORDERED: CEFTRIAXONE 1 GM/NS 50 ML 1 GM/50 ML BAG IV SCH (07:00)
[2020-09-03] MEDS: INSULIN -REGULAR HUMAN 50 UNIT/0.5 ML ML SQ SCH ×4 (07:30→20:28)
[2020-09-03] MEDS: ATORVASTATIN 10 MG TAB PO SCH (08:34)
[2020-09-03] MEDS: CALCITROL 0.25 MCG CAP PO SCH (08:34)
[2020-09-03] MEDS: DOXAZOSIN 2 MG TAB PO SCH ×2 (08:35→20:27)
[2020-09-03] MEDS: carvediloL 6.25 MG TAB PO SCH ×2 (08:36→20:27)
[2020-09-03 08:43] LABS: Platelet Estimate DECR
[2020-09-03 08:44] LABS: Anisocytosis 1+; Blood Morphology Comment NOTED (NOT SEEN); Hypochromasia 1+; Poikilocytosis 1+
[2020-09-03] MEDS ORDERED: CLONIDINE HCL 0.3 MG TAB PO SCH (09:00)
[2020-09-03] MEDS ORDERED: CEFTRIAXONE/SWI 1gm 1 GM/10 ML SYR IV SCH (09:00)
[2020-09-03] MEDS ORDERED: PNEUMOCOCCAL VACCINE 0.5 ML IMVAC ONE (09:00)
[2020-09-03] MEDS ORDERED: EPOETIN 4,000 UNIT/ML VIAL IV SCH (11:15)
--- NOTE | 2020-09-03 11:18 | P.CNS ---
Date of Consult: 09/03/20 Reason for Consult: ESRD , fluid management Primary Care Provider: Dr. Roth Chief Complaint: Sepsis History of Present Illness: A 79 Y/o man with pHx of ESRD on HD TTSat via Lt AVF, DM, HTN, CHF pt was admitted for weakness, near syncope pt was feeling weak after completing HD yesterday , he also had chills , pt presented to ER in ER Temp 101.8, with WBC of 17 pt started on empiric Abx treatment now pt feels better , denied m, chest pain, palpitation, nausea , vomiting or diarrhea Physical exam general: AAOX3, NAD , Neck; Supple, No elevated JVD hear: RRR, normal S1,2 no murmur or rub Chest: CTAB, no rlaes or wheezes Abdomen: Soft , Nt Extremities No edema or ulcer End-stage renal disease on HD TTsat HD as per schedule renal dose meds Anemia of chronic disease Cont epogen Sepsis possibly due to pneumonia UA clear F/U cultures Cont Abx HTN BP borderline now , will reduce clonidine , hold if SBP <130 Controlled DM as per PCP Allergies No Known Allergies Allergy (Verified 01/29/19 10:39) Home Medications: Atorvastatin Calcium 1 tab PO BEDTIME 09/03/20 Carvedilol [Coreg] 1 tab PO DAILY 09/03/20 Clonidine HCl [Catapres] 1 tab PO TID 09/03/20 Clopidogrel Bisulfate [Plavix] 1 tab PO DAILY 09/03/20 Doxazosin [Cardura*] 1 tab PO BEDTIME 09/03/20 Hydralazine HCl 1 tab PO TID 09/03/20 Insulin Degludec [Tresiba Flextouch U-200] 30 unit SQ DAILY 09/03/20 Lidocaine/Prilocaine [Lidocaine-Prilocaine Cream] 1 appl TOP SEECOM 09/03/20 - Past Medical/Surgical History Diabetic: Yes -: Diabetes mellitus type 2 -: Hypertension -: History of prostate cancer with prostatectomy -: Chronic renal disease, multi cystic kidney disease -: CHF -: CAD -: Prostate surgery about 20 years ago -: AV fistula Psychosocial/ Personal History: The patient is . He has 3 children. - Family History Father Medical History: Heart disease, Hypertension Mother Medical History: Heart disease - Social History Smoking Status: Unknown if ever smoked Alcohol use: No CD- Drugs: No Caffeine use: No Place of Residence: Home Physical Examination Temp Pulse Resp BP Pulse Ox 97.5 F 56 17 114/44 L 99 09/03/20 08:00 09/03/20 08:36 09/03/20 08:00 09/03/20 08:36 09/03/20 08:00 Laboratory Data (last 24 hrs) 09/02/20 17:20: PT 14.0 H, INR 1.19, APTT 20.4 L 09/02/20 17:20: WBC 16.7 H, Hgb 10.8 L, Hct 33.4 L, Plt Count 196 09/02/20 17:20: Sodium 137, Potassium 4.2, BUN 21 H, Creatinine 4.27 H, Glucose 111 H, Total Bilirubin 1.0, AST 23, ALT 12, Alkaline Phosphatase 65, Amylase 164 H, Lipase 97
--- NOTE | 2020-09-03 12:47 | P.PN ---
Subjective Date of Service: 09/03/20 Primary Care Provider: Dr. Roth Chief Complaint: Sepsis Patient currently has no complain. He has been afebrile today. Physical Examination - Vital Signs Temperature: 97.5 F Blood Pressure: 129/40 Pulse: 49 Respirations: 16 Pulse Ox (%): 100 - Physical Exam General: Alert, In no apparent distress, Oriented x3 HEENT: Mucous membr. moist/pink Neck: Supple, JVD not distended Respiratory: Clear to auscultation bilaterally, Normal air movement Cardiovascular: No edema, Regular rate/rhythm, Normal S1 S2 Capillary refill: <2 Seconds Gastrointestinal: Normal bowel sounds, Soft and benign, Non-distended, No tenderness Musculoskeletal: Other (Left arm AV fistula) Integumentary: No rashes, Skin breakdown (Stage 2 ulceration-sacral area.) Neurological: Other (Nonfocal) - Studies Laboratory Data (last 24 hrs) 09/02/20 17:20: PT 14.0 H, INR 1.19, APTT 20.4 L 09/02/20 17:20: WBC 16.7 H, Hgb 10.8 L, Hct 33.4 L, Plt Count 196 09/02/20 17:20: Sodium 137, Potassium 4.2, BUN 21 H, Creatinine 4.27 H, Glucose 111 H, Total Bilirubin 1.0, AST 23, ALT 12, Alkaline Phosphatase 65, Amylase 164 H, Lipase 97 Microbiology Data (last 24 hrs): 09/02/20 17:30 Nasopharnyx Influenza Type A Antigen Screen - Final 09/02/20 17:30 Nasopharnyx Influenza Type B Antigen Screen - Final Assessment And Plan - Current Problems (Diagnosis) (1) Fever Current Visit: Yes Status: Acute (2) ESRD (end stage renal disease) on dialysis Current Visit: Yes Status: Acute (3) Essential hypertension Current Visit: No Status: Chronic (4) Type 2 diabetes mellitus Current Visit: No Status: Chronic Qualifiers: Diabetes mellitus usp insulin use: with usp use Diabetes mellitus complication status: with kidney complications Diabetes mellitus complication detail: with chronic kidney disease Chronic kidney disease stage: on chronic dialysis Qualified Code(s): E11.22 - Type 2 diabetes mellitus with diabetic chronic kidney disease; N18.6 - End stage renal disease; Z79.4 - correction (current) use of insulin; Z99.2 - Dependence on renal dialysis (5) Severe sepsis Current Visit: Yes Status: Acute (6) Stage 2 skin ulcer of sacral region Current Visit: Yes Status: Acute - Plan Origin of fever/sepsis is unknown. DU looks clean and not infected. Continue current antibiotics-Levaquin and vancomycin. Follow blood cultures. Hemodialysis per nephrology. Insulin sliding scale and Lantus for glucose management.
[2020-09-03] MEDS: cloNIDine HCL 0.1 MG TAB PO SCH ×2 (14:00→20:27)
[2020-09-03] MEDS: VANCOMYCIN/NS 1 gm 1 GM/250 ML BAG IV SCH (18:28)
[2020-09-03] MEDS: PROMOD 30 ML DOSE PO SCH (20:28)
[2020-09-04 05:41] LABS: Absolute Lymphocytes (CBC) 0.8 K/uL (0.7-4.9); Basophils % 0.5 % (0-1.3); Hematocrit 28.5 % (39.6-49.0); Lymphocytes % 7.8 % (15.3-44.8); MPV 9.2 fL (7.6-11.3); RBC Red Blood Cell Count 3.72 M/uL (4.33-5.43)
[2020-09-04 06:11] LABS: Potassium 3.6 mmol/L (3.5-5.1)
[2020-09-04 06:43] VITALS: BMI 25.6
[2020-09-04] MEDS: INSULIN -REGULAR HUMAN 50 UNIT/0.5 ML ML SQ SCH ×3 (07:30→16:19)
[2020-09-04 08:09] VITALS: O2SAT 97
[2020-09-04] MEDS: DOXAZOSIN 2 MG TAB PO SCH (08:38)
[2020-09-04] MEDS: cloNIDine HCL 0.1 MG TAB PO SCH ×2 (08:39→13:55)
[2020-09-04] MEDS: ATORVASTATIN 10 MG TAB PO SCH (08:39)
[2020-09-04] MEDS: CALCITROL 0.25 MCG CAP PO SCH (08:39)
[2020-09-04] MEDS: carvediloL 6.25 MG TAB PO SCH (08:40)
[2020-09-04] MEDS: PROMOD 30 ML DOSE PO SCH (09:00)
[2020-09-04] MEDS ORDERED: Levofloxacin500mg IV 500 MG/100 ML BAG IV SCH (09:00)
--- NOTE | 2020-09-04 09:34 | EKG ---
Test Date: 2020-09-02 Test Time: 20:27:49 Sticker Hand: RV MEASUREMENT RESULTS: Intervals: Rate: 63 VA: 128 QRSD: 112 QT: 404 QTc: 413 [place]: P: 12 VA: 128 QRS: -43 T: 162 INTERPRETIVE STATEMENTS: Sinus rhythm with fusion complexes Left axis deviation Minimal voltage criteria for LVH, may be normal variant Cannot rule out Anterior infarct, age undetermined ST & T wave abnormality, consider lateral ischemia Abnormal ECG Compared to ECG 08/07/2019 11:01:43 Fusion complex(es) now present Myocardial infarct finding now present ST (T wave) deviation now present Sinus bradycardia no longer present Sinus arrhythmia no longer present T-wave abnormality no longer present Possible ischemia still present Electronically Signed On 09-04-20 09:31:17 CDT by Gamal Lazo
--- NOTE | 2020-09-04 09:36 | P.DS ---
Admission Date: 09/02/20 Discharge Date: 09/04/20 Primary Care Provider: Dr. Roth Disposition: DC HOME/HOME HEALTH CARE Discharge Condition: FAIR Reason for Admission: Sepsis Consultations: Nephrology - Problems (1) Fever Current Visit: Yes Status: Acute (2) ESRD (end stage renal disease) on dialysis Current Visit: Yes Status: Acute (3) Essential hypertension Current Visit: No Status: Chronic (4) Type 2 diabetes mellitus Current Visit: No Status: Chronic Qualifiers: Diabetes mellitus nursing home insulin use: with terminal supervisor use Diabetes mellitus complication status: with kidney complications Diabetes mellitus complication detail: with chronic kidney disease Chronic kidney disease stage: on chronic dialysis Qualified Code(s): E11.22 - Type 2 diabetes mellitus with diabetic chronic kidney disease; N18.6 - End stage renal disease; Z79.4 - [facility] (current) use of insulin; Z99.2 - Dependence on renal dialysis (5) Severe sepsis Current Visit: Yes Status: Acute (6) Stage 2 skin ulcer of sacral region Current Visit: Yes Status: Acute Brief History of Present Illness: 79-year-old gentleman with a history of end-stage renal disease on hemodialysis was brought to the emergency department due to weakness and near syncopal episode after dialysis. Patient noted to have temperature up to 101. CBC in the ED demonstrated leukocytosis. Chest x-ray showed evidence of pulmonary vascular congestion and could not exclude pneumonia. UA suggested the presence of UTI. Patient was diagnosed with sepsis and admitted for further management. Hospital Course: Patient admitted to the medical floor treated with broad-spectrum IV antibiotics which included IV vancomycin and IV levaquin. Blood cultures yielded no growth. Urine culture yielded polymicrobial growth. His leukocytosis resolved with IV antibiotics. Patient was asymptomatic the rest of the hospital stay. He has been afebrile since hospitalization. He has good appetite and has no complain today. Patient is discharged to continue antibiotic therapy and also to continue his routine dialysis. Vital Signs/Physical Exam: Temp Pulse Resp BP Pulse Ox 97.6 F 53 16 179/73 H 95 09/04/20 04:00 09/04/20 08:40 09/04/20 04:00 09/04/20 08:40 09/04/20 04:00 General: Alert, In no apparent distress HEENT: Mucous membr. moist/pink Neck: Supple, JVD not distended Respiratory: Clear to auscultation bilaterally, Normal air movement Cardiovascular: No edema, Regular rate/rhythm, Normal S1 S2 Gastrointestinal: Normal bowel sounds, Soft and benign, No tenderness Musculoskeletal: No swelling, Other (Bilateral lower extremity xerosis.) Neurological: Other (Nonfocal) Laboratory Data at Discharge: WBC 10.1 K/uL (4.3-10.9) D 09/04/20 05:08 Hgb 9.4 g/dL (13.6-17.9) L 09/04/20 05:08 Hct 28.5 % (39.6-49.0) L 09/04/20 05:08 Plt Count 147 K/uL (152-406) L 09/04/20 05:08 PT 14.0 SECONDS (9.5-12.5) H 09/02/20 17:20 INR 1.19 09/02/20 17:20 APTT 20.4 SECONDS (24.3-36.9) L 09/02/20 17:20 Sodium 140 mmol/L (136-145) 09/04/20 05:08 Potassium 3.6 mmol/L (3.5-5.1) 09/04/20 05:08 BUN 44 mg/dL (7-18) H 09/04/20 05:08 Creatinine 6.11 mg/dL (0.55-1.3) H* 09/04/20 05:08 Glucose 107 mg/dL (74-106) H 09/04/20 05:08 Total Bilirubin 1.0 mg/dL (0.2-1.0) 09/02/20 17:20 AST 23 U/L (15-37) 09/02/20 17:20 ALT 12 U/L (12-78) 09/02/20 17:20 Alkaline Phosphatase 65 U/L (45-117) 09/02/20 17:20 Amylase 164 U/L (25-115) H 09/02/20 17:20 Lipase 97 U/L (73-393) 09/02/20 17:20 Home Medications: Atorvastatin Calcium 1 tab PO BEDTIME 09/03/20 Carvedilol [Coreg] 1 tab PO DAILY 09/03/20 Clonidine HCl [Catapres] 1 tab PO TID 09/03/20 Clopidogrel Bisulfate [Plavix] 1 tab PO DAILY 09/03/20 Doxazosin [Cardura*] 1 tab PO BEDTIME 09/03/20 Hydralazine HCl 1 tab PO TID 09/03/20 Insulin Degludec [Tresiba Flextouch U-200] 30 unit SQ DAILY 09/03/20 Lidocaine/Prilocaine [Lidocaine-Prilocaine Cream] 1 appl TOP SEECOM 09/03/20 Calcitrol [Rocaltrol*] 0.25 mcg PO DAILY #30 cap 09/04/20 Doxycycline Hyclate 100 mg PO BID #14 capsule 09/04/20 Epoetin [Retacrit] 4,000 unit IV EVERY HD vial 09/04/20 levoFLOXacin [Levaquin] 500 mg PO Q48H #4 tab 09/04/20 New Medications: Doxycycline Hyclate 100 mg PO BID #14 capsule levoFLOXacin [Levaquin] 500 mg PO Q48H #4 tab Calcitrol [Rocaltrol*] 0.25 mcg PO DAILY #30 cap Diet: Renal Activity: Fall precautions Followup: Sebastian Roth MD [Primary Care Provider] - Time spent managing pt's care (in minutes): 37
[2020-09-04] MEDS ORDERED: PNEUMOCOCCAL VACCINE 0.5 ML IMVAC ONE (11:00)
--- NOTE | 2020-09-04 15:46 | P.PN ---
Subjective Date of Service: 09/04/20 Primary Care Provider: Dr. Roth Chief Complaint: Sepsis Subjective: Improving Subjcetive A 79 Y/o man with pHx of ESRD on HD TTSat via Lt AVF, DM, HTN, CHF pt was admitted for weakness, near syncope pt was feeling weak after completing HD yesterday , he also had chills , pt presented to ER in ER Temp 101.8, with WBC of 17 today seen and examined during HD feels better WBC normalized discharge plan as per primary team Physical exam general: AAOX3, NAD , Neck; Supple, No elevated JVD hear: RRR, normal S1,2 no murmur or rub Chest: CTAB, no rlaes or wheezes Abdomen: Soft , Nt Extremities No edema or ulcer End-stage renal disease on HD TTsat HD as per schedule renal dose meds Anemia of chronic disease Cont epogen Sepsis possibly due to pneumonia UA clear F/U cultures Cont Abx HTN BP borderline now , will reduce clonidine , hold if SBP <130 Controlled DM as per PCP Physical Examination - Vital Signs Temperature: 96.9 F Blood Pressure: 190/82 Pulse: 56 Respirations: 15 Pulse Ox (%): 98 Assessment And Plan Physician Review: Patient Assessed, Agree with Above Assessment and Plan
[2020-09-04] MEDS: VANCOMYCIN/NS 1 gm 1 GM/250 ML BAG IV SCH (15:56)
[2020-09-04 16:17] VITALS: BP 145/64
[2020-09-04 17:11] VITALS: TEMP 97.4
== END 2020-09-04 18:10 | disposition home health service (06) | DRG 871 ==
LOC: ER 15:04 → ERHOLD 19:56 → 2ND 21:55
PROVIDERS: ADMIT Internal Medicine; ATTEND Internal Medicine
DX: A41.9 Sepsis, unspecified organism (principal); N18.6 End stage renal disease; I13.2 Hypertensive heart and chronic kidney disease with heart failure and with stage 5 chronic kidney disease, or end stage renal disease; I50.9 Heart failure, unspecified; E11.22 Type 2 diabetes mellitus with diabetic chronic kidney disease; R65.20 Severe sepsis without septic shock; D63.1 Anemia in chronic kidney disease; L89.152 Pressure ulcer of sacral region, stage 2; I25.10 Atherosclerotic heart disease of native coronary artery without angina pectoris; Z79.02 Long term (current) use of antithrombotics/antiplatelets; Z79.4 Long term (current) use of insulin; Z85.46 Personal history of malignant neoplasm of prostate; Z86.73 Personal history of transient ischemic attack (TIA), and cerebral infarction without residual deficits; Z99.2 Dependence on renal dialysis; Z79.899 Other long term (current) drug therapy; Z20.828 Contact with and (suspected) exposure to other viral communicable diseases; Z23 Encounter for immunization
CPT/HCPCS: 36415; 71045; 80048; 80076; 80202; 81003; 81015; 82150; 82550; 82553; 82947; 83605; 83690; 84145; 84484; 85025; 85610; 85730; 87040; 87086; 87088; 87804; 90471; 90732; 90935; 93005; 94760; 96365; 99285; J0696; J1644; J3370; Q5105; U0003

== ENCOUNTER 2020-10-11 15:18 | Inpatient (IN) | payer OTHER ==
--- OUTSIDE RECORDS SUMMARY | 2020-10-11 15:20 | XMS REPORT | Clinical Summary ---
:1940 Author Organization [facility] Address [address] [place] [address] Care Team Providers Name Role Phone Sebastian Roth MD Primary Care Provider [phone] Allergies No Known Active Allergies Medications [...] Appointment Testing MD Belle (Primary Dx) after 10/11/2019 Surgical History Surgery Date Site/Laterality Comments PROSTATECTOMY [...] Comments Blood Pressure 150/68 01/05/2020 2:06 PM BRIDGE DESIGN ENGINEER Pulse 68 01/05/2020 2:06 PM BRIDGE DESIGN ENGINEER Temperature 36.4 C (97.6 F) 01/05/2020 2:06 PM BRIDGE DESIGN ENGINEER Respiratory Rate 18 01/05/2020 2:06 PM BRIDGE DESIGN ENGINEER Oxygen Saturation 99% 01/05/2020 2:06 PM BRIDGE DESIGN ENGINEER Inhaled Oxygen Concentration - - Weight 85.7 kg (189 lb) 01/05/2020 9:34 AM BRIDGE DESIGN ENGINEER Height 177.8 cm (5' 10") 01/05/2020 9:34 AM BRIDGE DESIGN ENGINEER Body Mass Index 27.12 01/05/2020 9:34 AM BRIDGE DESIGN ENGINEER Plan of Treatment Health Maintenance Due Date Last Done Comments SHINGLES VACCINES (#1) 1991 INFLUENZA VACCINE 06/12/2020 11/07/2018, 12/13/2016 65+ PNEUMOCOCCAL VACCINE Completed 12/13/2016 Procedures Procedure Name Priority Date/Time Associated Comments Diagnosis POC GLUCOSE Routine 01/05/2020 12:37 Results for this PM BRIDGE DESIGN ENGINEER procedure are i n the results section. IL AN PERIPHERAL BLOCK Routine 01/05/2020 10:20 R esults for this PROCEDURE FOR PAIN AM BRIDGE DESIGN ENGINEER procedure are in the results section. POC PANEL 4 Routine 01/05/2020 9:56 Results for this AM BR[employer]GE DESIGN ENGINEER procedure are i n the results section. ESTIMATED GFR Routine 01/05/2020 9:50 Results fo r this AM BR[employer]GE DESIGN ENGINEER procedure are i n the results section. BASIC METABOLIC PANEL Routine 01/05/2020 9:50 Re sults for this AM BR[employer]GE DESIGN ENGINEER procedure are i n the results section. ECG PRE/POST OP Routine 01/02/2020 3:46 Pre-op testing Result s for this PM BRIDGE DESIGN ENGINEER procedure are i n the results section. XR CHEST 2 VW Routine 01/02/2020 3:15 Pre-op testing Results for this PM BR[employer]GE DESIGN ENGINEER procedure are i n the results section. HEMOGLOBIN A1C Routine 01/02/2020 2:28 Pre-op testing Results for this PM BR[employer]GE DESIGN ENGINEER procedure are i n the results section. TYPE AND SCREEN Routine 01/02/2020 2:28 Pre-op testing Result s for this PM BR[employer]GE DESIGN ENGINEER procedure are i n the results section. PARTIAL THROMBOPLASTIN Routine 01/02/2020 2:28 Pre-op testing Results for this TIME (PTT) PM BRIDGE DESIGN ENGINEER procedure are i n the results section. PROTHROMBIN TIME WITH Routine 01/02/2020 2:28 Pre-op testing Results for this INR PM BRIDGE DESIGN ENGINEER procedure are i n the results section. HC COMPLETE BLD COUNT Routine 01/02/2020 2:28 Pre-op testing Results for this W/AUTO DIFF PM BRIDGE DESIGN ENGINEER procedure are i n the results section. after 10/11/2019 Results POC glucose (01/05/2020 12:37 PM BRIDGE DESIGN ENGINEER) Pathologist Sig nature POC glucose 103 (H) 65 - 99 mg/dL NIVIA LUBIN Comment: [facility] Roller Operator Name: Cristiano Carney Device ID: [id number] Specimen Performing Organization Address City/State/ZIP Code Phon e Number [facility] DEPARTMENT OF PATHOLOGY [id number] [facility] [place], [place] [address] AND GENOMIC MEDICINE [facility] [address] [facility] [place] [address] [facility] Peripheral Block (01/05/2020 10:20 AM BRIDGE DESIGN ENGINEER) Narrative Performed At Venkat Oconnor MD 0 [...] mL POC panel 4 (01/05/2020 9:56 AM BRIDGE DESIGN ENGINEER) POC sodium 138 135 - 148 [facility] mmol/L [facility] POC potassium 4.2 3.5 - 5.0 [facility] mmol/L [facility] POC hematocrit 39 (L) 41 - 51 % [facility] POC glucose 123 (H) 65 - 99 mg/dL [facility] Comment: [place] Roller Operator Name: [facility] Device ID: [id number] POC hemoglobin 13.3 (L) 14.0 - 18.0 [facility] g/dL [facility] Specimen Blood Performing Organization Address City/[facility] Phon e Number [facility] DEPARTMENT OF PATHOLOGY [address] [place] [address] Estimated GFR (01/05/2020 9:50 AM BRIDGE DESIGN ENGINEER) Estimated GFR 8 (A) mL/min/1.73 [facility] Comment: m2 [place] Catergory Units Interpretation HOS PITAL G1 >=90 [...] 2014. Specimen Plasma specimen Performing Organization Address [facility] Phon e Number [facility] DEPARTMENT OF PATHOLOGY [address] [place] [address] Basic metabolic panel (01/05/2020 9:50 AM BRIDGE DESIGN ENGINEER) Pathologist Sig nature Sodium 139 135 - 148 mEq/L [facility] Potassium 4.4 3.5 - 5.0 mEq/L [facility] Chloride 99 98 - 112 mEq/L [facility] CO2 24 24 - 31 mEq/L [facility] Anion gap 16@ANIO (H) 7 - 15 mEq/L [facility] BUN 44 (H) 8 - 23 mg/dL [facility] Creatinine 6.76 (H) 0.70 - 1.20 mg/dL [facility] Glucose 133 (H) 65 - 99 mg/dL [facility] Calcium 9.0 8.8 - 10.2 mg/dL [facility] Specimen Plasma specimen Performing Organization Address City/[facility]/ZIP Code Phon e Number [facility] DEPARTMENT OF PATHOLOGY [address] [place] [address] AND GENOMIC MEDICINE [facility] [place] CONFUCIANIST [place] [address] [facility] [place] [address] HOSPITAL ECG Pre/Post Op (01/02/2020 3:46 PM BRIDGE DESIGN ENGINEER) Pathologist Sig nature Ventricular rate 48 [facility]USE Atrial rate 48 [facility] M[facility] IL interval 148 [facility] QRSD interval 106 [...] consider lateral ischemia- Abnormal ECG-No previous ECGs [facility] MUSE available-Electronically Sig yordan By Donna Aguirre MD ([id number]) on 01/03/2020 1:43:06 AM Specimen Narrative Performed At This result has an attachment that is no t available. Performing Organization Address [facility] Phon e Number [facility] MUSE [address] [place] [address] XR Chest 2 Vw (01/02/2020 3:15 PM BRIDGE DESIGN ENGINEER) Specimen Narrative Performed At XR CHEST 2 [...] stent with DISH. No active cardiopulmonary disease. *[facility]-[id number] Procedure Note Interface, Radiology Results Incoming - 01/02/2020 3:22 PM BRIDGE DESIGN ENGINEER XR CHEST 2 VW CLINICAL INDICATION: Z01.818 Encounter for other preprocedural examination, pre op testing COMPARISON: 11/13/2002 IMPRESSION: The heart is mildly enlarged and stable in configuration. A right dual-lumen catheter is present with tips about the right atrium without pneumothorax. The lungs are clear. Prominent osteophytes are present through the mid thoracic curvature consi stent with DISH. No active cardiopulmonary disease. *[facility]-[id number] Performing Organization Address City/[facility] Phon e Number [facility] [address] [place] [address] Partial thromboplastin time, activated (01/02/2020 2:28 PM BRIDGE DESIGN ENGINEER) PTT 31.0 23.0 - 36.0 [facility] Comment: [facility] PTT therapeutic range for unfractionated heparin is HOSPITAL 61.0-112.0 seconds which corresponds to Anti-Xa 0.3-0.7 U/ml. Specimen Blood Performing Organization Address [facility] Phon e Number [facility] DEPARTMENT OF PATHOLOGY [id number] [place] [address] Prothrombin time with INR (01/02/2020 2:28 PM BRIDGE DESIGN ENGINEER) Pathologist [facility] Prothrombin time 14.4 11.5 - 14.5 [facility] INR 1.1 [place] Comment: CONFUCIANIST [facility] International Normalized Ratio (INR) is a therapeu [facility] monitoring tool for patients who are stable on oral anticoagulant therapy. An INR of 2.0-3.0 is suggested for deep vein thrombosis/pulmonary embolism. Specimen Blood Performing Organization Address City/[facility] Phon e Number [facility] DEPARTMENT OF PATHOLOGY [address] [place] [address] CBC with platelet and differential (01/02/2020 2:28 PM BRIDGE DESIGN ENGINEER) Pathologist [facility] Department WBC 8.8 4.5 - 11.0 k/uL [facility] RBC 4.93 4.40 - 6.00 [facility] m/uL [facility] HGB 12.1 (L) 14.0 - 18.0 [facility] g/dL [facility] HCT 38.6 (L) 41.0 - 51.0 % [facility] MCV 78.3 (L) 82.0 - 100.[address] [facility] MCH 24.5 (L) 27.0 - 34.[address] [facility] MCHC 31.3 31.0 - 37.0 [facility] g/dL [facility] RDW - SD 41.5 37.0 - 55.[address] [facility] MPV 10.5 6.9 - 11.[address] [facility] Platelet count 175 150 - 400 K/uL [facility] Nucleated RBC 0.00 /[address] [facility] Neutrophils 73.1 (H) 39.0 - 69.0 % [facility] Lymphocytes 13.9 (L) 25.0 - 45.0 % [facility] Monocytes 6.9 0.0 - 10.0 % [facility] Eosinophils 4.9 0.0 - 5.0 % [facility] Basophils 0.7 0.0 - 1.0 % [facility] Immature granulocytes 0.5 0.0 - 1.0 % [facility] Specimen Blood Performing Organization Address City/[facility]/ZIP [facility] Phon e Number [facility] DEPARTMENT OF PATHOLOGY [address] [place] [address] AND [place] [id number] HOSPITAL Type and screen (01/02/2020 2:28 PM BRIDGE DESIGN ENGINEER) Pathologist Sig nature ABO grouping O [facility] Rh type POS [facility] Antibody screen (gel) NEG [facility] Specimen Blood Performing Organization Address [facility] Phon e Number [facility] DEPARTMENT OF PATHOLOGY [address] [place] [address] Hemoglobin A1c (01/02/2020 2:28 PM BRIDGE DESIGN ENGINEER) Hemoglobin A1C 6.7 (H) 4.0 - 5.6 % [facility] Comment: [place] HbA1c cutoffs for diagnosing diabetes: HO SPITAL [...] Organization Address City/State/ZIP Code Phon e Number [facility] DEPARTMENT OF PATHOLOGY [address] [place] [address] AND [facility] [place] [address] [facility] [place] [address] HOSPITAL after 10/11/2019 Insurance Payer Benefit Plan / Subscriber ID Effective Dates Phone Addre ss Type Group MEDICARE MEDICARE PART A [id number] 2007-Present [place], [place] Medicare AND B Advance Directives For more information, please contact: [phone] Type Date Recorded Patient Brigadier Explanati on Advance Directives, Living Will 01/02/2020 1:35 PM and Medical Power of Processing Lead
--- OUTSIDE RECORDS SUMMARY | 2020-10-11 15:20 | XMS REPORT | Clinical Summary ---
:1940 Author Organization [facility] Address [address] [place] [address] Care Team Providers Name Role Phone Unavailable [...] Signs Not on file Plan of Treatment Health Maintenance Due Date Last Done Comments MEDICARE ANNUAL WELLNESS (YEAR 2 or FIRST YEAR if no 01/12/2008 IPPE) INFLUENZA VACCINE (#1) 2020 10/26/2017 PNEUMOCOCCAL 65+ YRS Completed 10/26/2017 Results Not on fileafter 10/11/2019 Advance Directives For more information, please contact: [phone] Code Status Date Activated Date Inactivated Comments Full Code 10/21/2017 3:49 PM 10/26/2017 4:58 PM This code status was determined by: Patient
--- OUTSIDE RECORDS SUMMARY | 2020-10-11 15:22 | XMS REPORT | Continuity of Care Document ---
:1940 Author Organization [facility] t Address [address] [place] [address] Care Team Providers Name Role Phone Sebastian Roth MD Primary Care Physician [phone] Arnaldo ROMEO, TGloria Attending Clinician Otis Oconnor MD Attending Clinician Ekaterina CRESPO Attending Clinician Michelet Dean MD Attending Clinician OSCAR Attending Clinician Unavailable OSCAR Admitting Clinician Unavailable Payers Payer Name Policy Type Policy Effective Date Expiration Date Sour ce Number MEDICAREMEDICARE PART [id number] 2007 Srikanth Nuñez AND 00:00:00 [facility]ism [id number] 2006- [place] Condition Condition Status Onset [...] Heart disease Mikal Cowan Natural mother Asthma [facility] Natural mother Diabetes [facility] Natural mother Hypertension Mikal Cowan Social History Social Habit Start Date Stop Date Quantity Comments Source History of tobacco Current smoker Srikanth Cowan use History [facility] Alcohol Std Drinks History [facility] Alcohol Binge Sex Assigned At [facility] ethodist Tobacco use and 2020-01-06 2020-01-06 Never used [facility] ethodist exposure 00:00:00 00:00:00 Alcohol intake 2020-01-06 2020-01-06 Lifetime [facility] 00:00:00 00:00:00 non-drinker (finding) History [facility] 2020-01-05 2020-01-05 1 [place] [facility] Alcohol Frequency 00:00:00 00:00:00 Smoking Status Start Date Stop Date Source Former smoker 2020-01-06 00:00:00 2020-01-06 00:00:00 [place] [facility] Medications Ordered Filled Start Stop Current Ordering [...] T PO HS clonIDINE 2020-0 Yes .3mg Q.[id number] 0.3 mg 3 Ren (CATAPRES) 2-24 [id number] (three) Methodi 0.1 MG 15:10: 3D times a st tablet 48 day. hydrALAZINE 2020-0 Yes 50mg Q.38895114 50 mg 3 Ren (APRESOLINE 2-24 [id number] (three) Methodi ) 25 MG 15:10: 3D times a st tablet 48 day. carvediloL 2020-0 Yes 3.125mg Q.5D Take 3.125 Ren (COREG) 2-24 mg by Methodi 3.125 MG 15:10: mouth 2 st tablet 48 (two) times a day with meals. insulin 2020-0 Yes Tresiba [place] degludec 2-24 FlexTouch Method i (TRESIBA 15:10: [...] 1 Ren -acetaminop 2-24 01-11 tablet by Ak royce malik (NORCO) 00:00: 23:[address] 5-325 mg 00 :00 every 6 per tablet (six) hours as needed for moderate pain for up to 30 doses .acute pain. Max Daily Amount: 4 tablets furosemide 2016-11 Yes 40mg QD Take [address] (LASIX) 40 2-15 by [facility] tablet 14:58: daily. Medica l [address] [place] atorvastati 2016-11 Yes 10mg QD Take [address] [facility] (LIPITOR) 2-15 by mouth [facility] - 10 MG 14:58: nightly. Medical tablet [address] [place] allopurinol 2016-11 Yes 100mg QD Take [address] (ZYLOPRIM) 2-15 mg by [facility] - 100 MG 14:58: mouth Medical tablet 35 daily. [place] metoprolol 2016-11 Yes 50mg QD Take [address] (TOPROL-XL) 2-15 by mouth [facility] - 50 MG 24 hr 14:58: daily. [facility] tablet [address] [place] acarbose 2016-11 Yes 50mg Take [address] (PRECOSE) 2-15 by mouth 3 [facility] - 50 MG 14:58: (three) Medical tablet 35 times Center daily with meals. Immunizations Ordered Immunization Filled Immunization Date Status Commen ts Source Name Name Influenza High Dose 2017-10-26 [facility]:00:00 [facility] Pneumococcal 2017-10-[address] [facility] - Polysaccharide 00:00:00 [facility] (Pneumovax) Vital Signs Vital Name Observation Time Observation Value Comments Source Systolic blood 2020-01-05 14:06:00 150 mm[Hg] [facility] pressure Diastolic blood 2020-01-05 14:06:00 68 mm[Hg] [place] on [facility] pressure Heart rate 2020-01-05 14:06:00 68 /min Mikal Cowan Body temperature 2020-01-05 14:06:00 36.44 [place] [facility] Respiratory rate 2020-01-05 14:06:00 18 /min Shelly Cowan Oxygen saturation in 2020-01-05 14:06:00 99 /min Mikal Cowan Arterial blood by Pulse oximetry Body height 2020-01-05 09:34:00 177.8 cm Mikal Cowan Body weight 2020-01-05 09:34:00 85.73 kg Mikal Cowan BMI 2020-01-05 09:34:00 27.12 kg/m2 Mikal Cowan Procedures Procedure Date / Time Performing Clinician Source Performed POC GLUCOSE 2020-01-05 12:37:00 Nhung Mcintosh [place] AN PERIPHERAL BLOCK 2020-01-05 10:20:11 Venkat Oconnor [...] Planned Date Details Comments Source Future Scheduled 2020-07-[address] [facility] - Test 00:00:00 (#1) [code = Medical Center INFLUENZA VACCINE (#1)] Future Scheduled 2020-06-12 INFLUENZA VACCINE [facility] 00:00:00 [code = INFLUENZA VACCINE] Future Scheduled 2008-01-[address] [facility] [facility] - Test 00:00:00 WELLNESS (YEAR 2 or Medical Center FIRST YEAR if no IPPE) [code = MEDICARE ANNUAL WELLNESS (YEAR 2 or FIRST YEAR if no IPPE)] Future Scheduled 1991 SHINGLES VACCINES [place] [facility] Test 00:00:00 (#1) [code = SHINGLES VACCINES (#1)] Encounters Start End Encounter Admission Attending Care Care Encounter Source Date/Time Date/Time Type Type Clinicians Facility Department ID 2020-01-02 2020-01-02 Outpatient ARNALDO [facility] [id number] [place] 00:00:00 00:00:00 CLARENCEAN [address] 2020-01-02 2020-01-02 Outpatient JAMIE [facility] [id number] [place] 00:00:00 00:00:00 KI, [address] Results Test Description Test Time Test Comments Results Result Comments Source POC glucose 2020-01-05 12:39:58 Test Item Value Reference Range Interpretation Comme nts POC glucose (test code = 83334-0) 103 mg/dL 65-99 H Produce Department Supervisor Name: Cristiano Devries ID: [id number] Lab Interpretation (test code = Abnormal 45996-2) [place] [facility] metabolic [id number] 10:34:05 Test Item Value Reference Range Interpretation Comments Sodium (test code = 2951-2) 139 135- 148 mEq/L Potassium (test code = 2823-3) 4.4 3.5- 5.0 mEq/L Chloride (test code = 2075-0) 99 98- 112 mEq/L CO2 (test code = 2028-9) 24 24- 31 mEq/L Anion gap (test code = 26189-1) 16@ANIO 7- 15 mEq/L H BUN (test code = 3094-0) 44 mg/dL 8-23 H Creatinine (test code = 2160-0) 6.76 mg/dL 0.7-1.2 H Glucose (test code = 2345-7) 133 mg/dL 65-99 H Calcium (test code = 68057-5) 9.0 mg/dL 8.8-10.2 Lab Interpretation (test code = Abnormal 34320-8) Mikal MethodistEstimated [id number] 10:34:05 Test Item Value Reference Range Interpretation Comments Estimated GFR (test 8 mL/min/1.73 m2 Savannah keyes Units code = 5488) InterpretationG 1 >=90 Cleo l or highG2 60-89 Mildly decrease dG3a 45-59 Mil dly to moderately decr dovryS3i 30-44 Moderately to s everely decreasedG4 15-29 Severe ly decreasedG5 <15 Kidney renetta lureThe eGFR was calcul ated using the [facility] Kidney Disease Epidemiology Collaboration ( CKD-EPI) equation. Interpretation is based on recommendati ons of the National [facility]-Kidn ey Disease Outcome s Quality Initiat vijay (NKF-KDOQI) pub lished in 2013. Lab Interpretation Abnormal (test code = 87432-4) Mikal MethodistPeripheral [id number] 10:20:11Venkat Oconnor MD 01/05/2020 10:21 AMPeripheral BlockDate/Time: [...] AdministeredRopivacaine 0.5 % PF (mL), 30 mL Ren MethodistPOC panel [id number] 09:57:46 Test Item Value Reference Range Interpretation Comments POC sodium (test code 138 mmol/L 135-148 = 2947-0) POC potassium (test 4.2 mmol/L 3.5-5 code = 6298-4) POC hematocrit (test 39 % 41-51 L code = 4544-3) POC glucose (test code 123 mg/dL 65-99 H Opera tor Name: Glenis = 2339-0) TheresaDevice I D: [id number] POC hemoglobin (test 13.3 g/dL 14-18 L code = 718-7) Lab Interpretation Abnormal (test code = 77048-3) Mikal MethodistECG Pre/Post [id number] 01:43:10 Test Item Value Reference Range Interpretation Comments Ventricular rate (test 48 code = 253) Atrial rate (test code 48 = 255) KS interval (test code 148 = 266) QRSD [...] ECG-No previous ECGs available-Electronical ly Signed By Donna Aguirre MD ([id number]) on 01/03/2020 1:43:06 AM Mikal MethodistType and [id number] 16:29:00 Test Item Value Reference Range Interpretation Comments ABO grouping (test code = 883-9) O Rh type (test code = 52933-0) POS Antibody screen (gel) (test code = NEG 890-4) Mikal MethodistHemoglobin [id number] 15:32:19 Test Item Value Reference Range Interpretation Comments Hemoglobin A1C (test 6.7 % 4-5.6 H HbA1c c utoffs for code = 83913-0) diagnosing diabetes:4.0% - 5.6% = normal5.7% - 6.4% = increased risk for diabetes (prediabetes)9> =6.5% = typncoek2Iseb s for glycemic contro l (ADA 2016)< 7.0% Ta rget for non adults with mariluz betes. More or less stringent targe ts may be appropriate for individual wendy ents. <7.5% Target for Children and adolescents wit h type 1 diabetes. Lab Interpretation (test Abnormal code = 50222-0) Mikal MethodadanPartial thromboplastin time, [id number] 15:28:40 Test Item Value Reference Range Interpretation Comments PTT (test code = 31.0 23.0- 36.0 sec PTT thera peutic range for 3173-2) unfractionated heparin is61.0-112.0 se conds which corresponds to Anti-Xa0.3-0.7 U/ml. Ren MethodistProthrombin time with [id number] 15:27:52 Test Item Value Reference Range Interpretation Comments Prothrombin time (test 14.4 11.5- 14.5 sec code = 5902-2) INR (test code = 1.1 The Interna tional 75185-0) Normalized Rati o (INR) is a therapeutic m onitoring tool for patien ts who are stable on oral anticoagulant t herapy. An INR of 2.0-3.0 is suggested for d eep vein thrombosis/pulm onary embolism. Ren MethodistXR Chest 2 [id number] 15:19:12Hm Interface, Radiology Results Incoming - 01/02/2020 3:22 PM CSTXR CHEST 2 VWCLINICAL INDICATION:Z01.818 Encounter for other preprocedural examination, pre op testingCOMPARISON: 11/13/2002IMPRESSION:The heart is mildly enlarged and stable in configuration. A right dual-lumen catheter is present with tips about the right atrium without pneumothorax. The lungs are clear. 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.No active cardiopulmonary disease.*[facility]-MM65USHXNhoonvdMethodist [facility] with [facility] and differential 2020-01-02 15:13:53 Test Item Value Reference Range Interpretation Comments WBC (test code = 86971-2) 8.8 4.5- 11.0 k/uL RBC (test code = 36504-2) 4.93 m/uL 4.4-6 HGB (test code = 718-7) 12.1 g/dL 14-18 L HCT (test code = 4544-3) 38.6 % 41-51 L MCV (test code = 787-2) 78.3 fL 82-100 L MCH (test code = 785-6) 24.5 pg 27-34 L MCHC (test code = 786-4) 31.3 g/dL 31-37 RDW - SD (test code = 25410-3) 41.5 fL 37-55 MPV (test code = 02620-0) 10.5 fL 6.9-11 Platelet count (test code = 175 K/uL 150-400 05382-8) Nucleated RBC (test code = 76275-9) 0.00 /100 WBC Neutrophils (test code = 50764-3) 73.1 % 39-69 H Lymphocytes (test code = 62370-4) 13.9 % 25-45 L Monocytes (test code = 04983-2) 6.9 % 0-10 Eosinophils (test code = 87793-2) 4.9 % 0-5 Basophils (test code = 49591-6) 0.7 % 0-1 Immature granulocytes (test code = 0.5 % 0-1 93504-3) Lab Interpretation (test code = Abnormal 61247-6) [facility] [id number] 10:00:00 Test Item Value Reference Range Interpretation Comments CULTURE (BEAKER) (test No growth in 5 days code = 1095) BLOOD [id number] 10:00:00 Test Item Value Reference Range Interpretation Comments CULTURE (BEAKER) (test No growth in 5 days code = 1095) POCT-GLUCOSE [id number] 12:18:00 Test Item Value Reference Range Interpretation Comments POC-GLUCOSE METER 181 mg/dL 70-[address] [facility] 6720 (BEAKER) (test code = ALEKSANDRA [place] 1538) [address] POCT-GLUCOSE [id number] 08:05:00 Test Item Value Reference Range Interpretation Comments POC-GLUCOSE METER 143 mg/dL 70-[address] [facility] 6720 (BEAKER) (test code = ALEKSANDRA [place] 1538) [address] BASIC METABOLIC [id number] 06:08:00 Test Item Value Reference Range Interpretation [...] S NOT APPLICABLE FOR DIALYSIS PATIEN TS. [id number] 06:03:00 Test Item Value Reference Range Interpretation Comments PHOSPHORUS (BEAKER) (test code = 3.4 mg/dL 2.3-4.7 604) [id number] 06:03:00 Test Item Value Reference Range Interpretation Comments MAGNESIUM (BEAKER) (test code = 1.9 mg/dL 1.6-2.6 627) CBC W/PLT COUNT & AUTO [id number] 05:38:00 Test Item Value Reference Range Interpretation [...] PERCENT (BEAKER) (test code = 2801) CALCIUM, [id number] 05:36:00 Test Item Value Reference Range Interpretation Comments CALCIUM IONIZED (BEAKER) (test 0.89 mmol/L 1.12-1.27 L code = 698) PH, BLOOD (BEAKER) (test code = 7.54 1810) POCT-GLUCOSE [id number] 21:59:00 Test Item Value Reference Range Interpretation Comments POC-GLUCOSE METER 184 mg/dL 70-110 H TESTED AT [place] [address] ([facility]) (test code = ALEKSANDRA [facility] 1538) [address] POCT-GLUCOSE [id number] 17:35:00 Test Item Value Reference Range Interpretation Comments POC-GLUCOSE METER 130 mg/dL 70-110 H TESTED AT [place] [address] ([facility]) (test code = ALEKSANDRA [facility] 1538) [address] POCT-GLUCOSE [id number] 11:42:00 Test Item Value Reference Range Interpretation Comments POC-GLUCOSE METER 161 mg/dL 70-110 H TESTED AT [place] [address] ([facility]) (test code = ALEKSANDRA [facility] 1538) [address] POCT-GLUCOSE [id number] 10:42:00 Test Item Value Reference Range Interpretation Comments POC-GLUCOSE METER 172 mg/dL 70-110 H TESTED AT [place] [address] ([facility]) (test code = ALEKSANDRA [facility] 1538) [address] CBC W/PLT COUNT & AUTO [id number] 09:06:00 Test Item Value Reference Range Interpretation Comments WHITE BLOOD CELL COUNT (BEAKER) 10.7 K/ L 3.5-10.5 H (test code = 775) RED BLOOD CELL COUNT (AKER) 3.06 M/ L 4.63-6.08 L (test code [...] (BEAKER) (test code = 2801) BASIC METABOLIC [id number] 08:20:00 Test Item Value Reference Range Interpretation [...] S NOT APPLICABLE FOR DIALYSIS PATIEN TS. [id number] 07:57:00 Test Item Value Reference Range Interpretation Comments PHOSPHORUS (BEAKER) (test code = 3.2 mg/dL 2.3-4.7 604) [id number] 07:57:00 Test Item Value Reference Range Interpretation Comments MAGNESIUM (BEAKER) (test code = 1.7 mg/dL 1.6-2.6 627) CALCIUM, [id number] 07:40:00 Test Item Value Reference Range Interpretation Comments CALCIUM IONIZED (BEAKER) (test 0.95 mmol/L 1.12-1.27 L code = 698) PH, BLOOD (BEAKER) (test code = 7.53 1810) POCT-GLUCOSE [id number] 21:39:00 Test Item Value Reference Range Interpretation Comments POC-GLUCOSE METER 138 mg/dL 70-110 H TESTED AT [place] [address] ([facility] ([facility] 1538) [address] POCT-GLUCOSE [id number] 18:16:00 Test Item Value Reference Range Interpretation Comments POC-GLUCOSE METER 158 mg/dL 70-110 H TESTED AT [place] [address] ([facility]) (test code = [facility] 1538) [address] POCT-GLUCOSE [id number] 12:07:00 Test Item Value Reference Range Interpretation Comments POC-GLUCOSE METER 153 mg/dL 70-110 H TESTED AT [place] [address] ([facility] (test code = [facility] 1538) [address] POCT-GLUCOSE [id number] 08:12:00 Test Item Value Reference Range Interpretation Comments POC-GLUCOSE METER 133 mg/dL 70-110 H TESTED AT [place] [address] ([facility] (test code = [facility] 1538) [address] BASIC METABOLIC [id number] 05:25:00 Test Item Value Reference Range Interpretation [...] NOT APPLICABLE FOR DIALYSIS PATIEN TS. CALCIUM, [id number] 05:23:00 Test Item Value Reference Range Interpretation Comments CALCIUM IONIZED (BEAKER) (test 0.88 mmol/L 1.12-1.27 L code = 698) PH, BLOOD (BEAKER) (test code = 7.50 1810) [id number] 05:22:00 Test Item Value Reference Range Interpretation Comments PHOSPHORUS (BEAKER) (test code = 3.7 mg/dL 2.3-4.7 604) [id number] 05:22:00 Test Item Value Reference Range Interpretation Comments MAGNESIUM (BEAKER) (test code = 1.8 mg/dL 1.6-2.6 627) CBC W/PLT COUNT & AUTO [id number] 05:10:00 Test Item Value Reference Range Interpretation [...] (BEAKER) (test code = 2801) HEMOGLOBIN AND [id number] 00:40:00 Test Item Value Reference Range Interpretation Comments HEMOGLOBIN (BEAKER) (test code = 7.1 GM/DL 13.7-17.5 L 410) HEMATOCRIT (BEAKER) (test code = 21.6 % 40.1-51.0 L 411) Send specimen after 2 units PRBC transfusion is completedPOCT-GLUCOSE METER 2017-10-23 21:20:00 Test Item Value Reference Range Interpretation Comments POC-GLUCOSE METER 114 mg/dL 70-[address] [facility] 6720 (BEAKER) (test code = A[place]KSANDRA [place] 1538) [address] POCT-GLUCOSE [id number] 17:14:00 Test Item Value Reference Range Interpretation Comments POC-GLUCOSE METER 92 mg/dL 70-[address] [facility] 6720 (KISHAN) (test code = [place] [address] 1538) ANG, EMBOLIZATION, EXTENSIVE - [id number] 15:08:00Reason for exam:- >left kidney intraparenchymal hemorrhageReason for exam:->please review filmsand consider embolization, please call Dr Duke with urology to discuss- [phone] REPORT Renal arteriogram: Pertinent clinical information: Left [...] Tia Ashford Verified Date/Time: 10/23/201715:08:40 Reading Location: [facility] P048 Angio Body Reading Room URINE CULTURE 2017-10-23 10:50:00 Test Item Value Reference Range Interpretation Comments CULTURE (BEAKER) (test code = 1095) No growth [id number] 10:38:00 Test Item Value Reference Range Interpretation [...] (BEAKER) (test code = 2801) BASIC METABOLIC [id number] 07:46:00 Test Item Value Reference Range Interpretation [...] 8.4-10.2 L (test code = 697) EGFR (KISHAN) (test 20 mL/min/1.73 ESTIMA TANJA GFR IS code = 1092) sq m NOT ACCURATE CREATININE CLEARANCE IN PREDICTING GLOMERULAR FILTRATION RATE . ESTIMATED GFR I S NOT APPLICABLE FOR DIALYSIS PATIEN TS. [id number] 07:41:00 Test Item Value Reference Range Interpretation Comments PHOSPHORUS (KISHAN) (test code = 3.5 mg/dL 2.3-4.7 604) [id number] 07:41:00 Test Item Value Reference Range Interpretation Comments MAGNESIUM (KISHAN) (test code = 1.8 mg/dL 1.6-2.6 627) POCT-GLUCOSE [id number] 07:13:00 Test Item Value Reference Range Interpretation Comments POC-GLUCOSE METER 124 mg/dL 70-[address] [facility] 6720 (KISHAN) (test code = ALEKSANDRA [place] 1538) [address] CT, [id number] 00:22:00FINAL REPORT CT, ABDOMEN \T\ PELVIS, WITHOUT [...] MDReport Verified Date/Time: 10/23/2017 00:22:43 Reading Location: [facility] C013Y CT Body Reading Room CREATINE KINASE (CK)2017-10-22 21:31:00 Test Item Value Reference Range Interpretation Comments CREATINE KINASE TOTAL (BEAKER) (test 167 U/L 29-200 code = 380) LACTIC ACID, VENOUS, WHOLE [id number] 21:24:00 Test Item Value Reference Range Interpretation Comments LACTATE BLOOD VENOUS (2) (BEAKER) 0.8 mmol/L 0.5-2.2 (test code = 2872) Effective 03/15/2016: Units/Reference Range ChangeNew: 0.5-2.2 mmol/L Previous: 5-20 mg/dLPOCT-GLUCOSE [id number] 21:23:00 Test Item Value Reference Range Interpretation Comments POC-GLUCOSE METER 130 mg/dL 70-[address] [facility] 6720 (BEAKER) (test code = [facility] 1538) [address] SODIUM, RANDOM [id number] 20:29:00 Test Item Value Reference Range Interpretation Comments SODIUM URINE (BEAKER) (test code = 24 meq/L 243) Reference Range: No NormalsCREATININE, RANDOM [id number] 20:27:00 Test Item Value Reference Range Interpretation Comments CREATININE URINE (BEAKER) (test 155.1 mg/dL code = 375) Reference Range: No NormalsPROTEIN, RANDOM [id number] 20:27:00 Test Item Value Reference Range Interpretation Comments PROTEIN, URINE (BEAKER) (test code = 60 mg/dL 0-14 H 1569) URINALYSIS W/ [id number] 20:27:00 Test Item Value Reference Range Interpretation [...] 1585) SOURCE(BEAKER) (test code = Urine, Moody 0888) POCT-GLUCOSE [id number] 17:05:00 Test Item Value Reference Range Interpretation Comments POC-GLUCOSE METER 113 mg/dL 70-[address] [facility] 6720 (BEAKER) (test code = [place]KSANDRA [place] 1538) [address] [id number] 16:24:00 Test Item Value Reference Range Interpretation Comments PROSTATE SPECIFIC ANTIGEN (BEAKER) 0.0 ng/mL 0.0-4.0 (test code = 844) POCT-GLUCOSE [id number] 11:21:00 Test Item Value Reference Range Interpretation Comments POC-GLUCOSE METER 146 mg/dL 70-[address] [facility] 6720 (KISHAN) (test code = A[place]KSANDRA [place] 1538) [address] HEMOGLOBIN AND [id number] 11:19:00 Test Item Value Reference Range Interpretation Comments HEMOGLOBIN (KISHAN) (test code = 6.4 GM/DL 13.7-17.5 L 410) HEMATOCRIT (KISHAN) (test code = 20.0 % 40.1-51.0 L 411) U/S, RENAL, [id number] 09:08:00Reason for exam:->left intraparenchymal hematoma on CTFINAL [...] examination with renal protocol. Signed: Annabel Poole Verified Date/Time: 10/22/2017 09:08:47 Reading Location: [address] Ultrasound Reading Room POCT-GLUCOSE [id number] 08:05:00 Test Item Value Reference Range Interpretation Comments POC-GLUCOSE METER 154 mg/dL 70-[address] [facility] 6720 (BEAKER) (test code = A[place]KSANDRA [place] 1538) [address] URINALYSIS W/ [id number] 07:56:00 Test Item Value Reference Range Interpretation [...] 1584) SOURCE(BEAKER) (test code = Urine, Voided 9153) COMPREHENSIVE METABOLIC [id number] 07:45:00 Test Item Value Reference Range Interpretation [...] PATIEN TS. CBC W/PLT COUNT & AUTO [id number] 05:44:00 Test Item Value Reference Range Interpretation [...] % 0-1 PERCENT (BEAKER) (test code = 2804) POCT-GLUCOSE [id number] 22:09:00 Test Item Value Reference Range Interpretation Comments POC-GLUCOSE METER 165 mg/dL 70-[address] [facility] 6720 ([facility]) (test code = A[place]KSANDRA [place] 1538) [address] [id number] 16:51:00 Test Item Value Reference Range Interpretation Comments PROTIME (BEAKER) (test code = 17.9 seconds 11.7-14.7 H 759) INR (BEAKER) (test code = 370) 1.5 <=5.9 PARTIAL THROMBOPLASTIN TIME 23.0 seconds 22.5-36.0 (BEAKER) (test code = 760) RECOMMENDED COUMADIN/WARFARIN INR THERAPY RANGESSTANDARD DOSE: 2.0 - 3.0 Includes: PROPHYLAXIS forvenous thrombosis, systemic embolization; TREATMENT for venous thrombosis and/or pulmonary embolus.HIGH RISK: Target INR is 2.5-3.5 for patients with mechanical heart valves.POCT-GLUCOSE [id number] 16:36:00 Test Item Value Reference Range Interpretation Comments POC-GLUCOSE METER 222 mg/dL 70-110 H TESTED AT [place] [address] ([facility]) (test code = ALEKSANDRA [place] 1538) [address]
[2020-10-11] MEDS ORDERED: NA CHLORIDE 0.9% 500 ML ONE (15:46)
[2020-10-11 16:12] LABS: Absolute Lymphocytes (CBC) 0.1 K/uL (0.7-4.9); Basophils % 0.1 % (0-1.3); Hematocrit 36.7 % (39.6-49.0); Lymphocytes % 1.6 % (15.3-44.8); MPV 9.4 fL (7.6-11.3)
[2020-10-11 16:18] LABS: Albumin 3.3 g/dL (3.4-5.0); Bilirubin Direct 0.2 mg/dL (0-0.2); Bilirubin Total 0.6 mg/dL (0.2-1.0); Potassium 3.7 mmol/L (3.5-5.1)
--- NOTE | 2020-10-11 16:35 | RAD REPORT ---
EXAM DESCRIPTION: CT - Abdomen Pelvis Wo Contrast - 10/11/2020 4:15 pm CLINICAL HISTORY: Abdominal pain COMPARISON: 2018 TECHNIQUE: Computed axial tomography of the abdomen and pelvis was obtained. IV and oral contrast we re not requested. All CT scans are performed using dose optimization technique as appropriate and may include automated exposure control or mA/KV adjustment according to patient size. FINDINGS: The evaluation of solid organs, vessels and bowel is limited secondary to the lack of con trast administration. Small pericardial effusion. The liver, spleen, pancreas, and adrenals appear grossly normal. 11 centimeter cyst left kidney. Additional bilateral smaller simple and hemorrhagic/ proteinaceous cy sts within the kidneys. Prostatectomy with lymph node dissection. Small amount of ascites within the pelvis. 3.5 centimeter l ipoma left gluteus muscle. Mild to moderate dilatation of jejunum and most of ileum. This likely indicates a distal ileal obstru ction. 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
--- NOTE | 2020-10-11 16:36 | RAD REPORT ---
EXAM DESCRIPTION: Chidi Single View10/11/2020 4:08 pm CLINICAL HISTORY: Abd pain COMPARISON: none FINDINGS: The lungs appear clear of acute infiltrate. The heart is mildly enlarged IMPRESSION: No acute abnormalities displayed
--- NOTE | 2020-10-11 16:54 | ER ---
Nurse's Notes [facility] Name: Steve Lopez Jr Age: 79 yrs Sex: Male : 1940 Arrival Date: 10/11/2020 Time: 15:19 Bed 13 Private MD: Diagnosis: Small Bowel Obstruction;Hypotension, unspecified;Dehydration;End stage renal disease Presentation: 10/11 15:19 Chief complaint: EMS states: called out for generalized weakness, n/v for a couple of sv days. HD TThS. Coronavirus screen: Client denies travel out of the [place] in the last 14 days. At this time, the client does not indicate any symptoms associated with coronavirus-19. Ebola Screen: No symptoms or risks identified at this time. Initial Sepsis Screen: Does the patient meet any 2 criteria? Mean Arterial Pressure (MAP) < 65. No. Patient's initial sepsis screen is negative. Does the patient have a suspected source of infection? No. Patient's initial sepsis screen is negative. Risk Assessment: Do you want to hurt yourself or someone else? Patient reports no desire to harm self or others. Onset of symptoms was October 09, 2020. 15:19 Method Of Arrival: EMS: [facility] sv 15:19 Acuity: NATHANIEL 2 sv Triage Assessment: 15:20 General: Appears in no apparent distress. comfortable, well developed, Behavior is sv calm, cooperative, appropriate for age, quiet. Pain: Denies pain. Neuro: Level of Consciousness is awake, alert, obeys commands, Oriented to person, place, time, situation, Moves all extremities. Full function. Neuro: Reports weakness. Cardiovascular: Patient's skin is warm and dry. Respiratory: Airway is patent Respiratory effort is even, unlabored, Respiratory pattern is regular, symmetrical. GI: Abdomen is flat, Reports nausea, tolerance of fluids, vomiting. Derm: Skin is normal. Historical: - Allergies: 15:21 No Known Allergies; sv - PMHx: 15:21 Diabetes - IDDM; Glaucoma; heart attack; Hypertension; kidney disease; Prostate Cancer; sv - Immunization history:: Adult Immunizations up to date. - Social history:: Smoking status: . - Family history:: not pertinent. - Hospitalizations: : No recent hospitalization is reported. Screenin:21 Abuse screen: Denies threats or abuse. Denies injuries from another. Nutritional sv screening: No deficits noted. Tuberculosis screening: No symptoms or risk factors identified. Fall Risk None identified. Assessment: 16:20 Reassessment: Patient appears in no apparent distress at this time. No changes from sv previously documented assessment. Patient and/or family updated on plan of care and expected duration. Pain level reassessed. Patient is alert, oriented x 3, equal unlabored respirations, skin warm/dry/pink. 16:27 Reassessment: Informed Dr Singer of updated vitals and 1st 500 ml NS are still infusing. sv Stated to hold off on the 250 mls bolus for now. 17:35 Reassessment: Patient appears in no apparent distress at this time. Patient and/or sv family updated on plan of care and expected duration. Pain level reassessed. Patient is alert, oriented x 3, equal unlabored respirations, skin warm/dry/pink. 17:43 Reassessment: Pt wanted myself to call his granddaughter Richa and give her an update sv on his POC at [phone]. Granddaughter reported that he's been taking OTC stool softeners for constipation the past 2 weeks. 18:14 Reassessment: Patient appears in no apparent distress at this time. Patient and/or sv family updated on plan of care and expected duration. Pain level reassessed. Patient is alert, oriented x 3, equal unlabored respirations, skin warm/dry/pink. 18:35 Reassessment: Repeat lactate sent. sv 19:10 General: Appears in no apparent distress. comfortable, Behavior is calm, cooperative, rr5 appropriate for age. Pain: Denies pain. Neuro: Level of Consciousness is awake, alert, obeys commands, Oriented to person, place, time. Cardiovascular: Capillary refill < 3 seconds Patient's skin is warm and dry. Dialysis shunt: in the left arm. Respiratory: Airway is patent Respiratory effort is even, unlabored, Respiratory pattern is regular, symmetrical. GI: NGT in place, to suction. Site clean. : No signs and/or symptoms were reported regarding the genitourinary system. EENT: No signs and/or symptoms were reported regarding the EENT system. Derm: Skin is intact, is healthy with good turgor, Skin temperature is warm. Musculoskeletal: Circulation, motion, and sensation intact. Capillary refill < 3 seconds. 20:30 Reassessment: Patient appears in no apparent distress at this time. Patient and/or wh family updated on plan of care and expected duration. Pain level reassessed. Patient is alert, oriented x 3, equal unlabored respirations, skin warm/dry/pink. Vital Signs: 15:19 BP 91 / 54; Pulse 86; Resp 14; Temp 99; Pulse Ox 95% ; sv 16:12 Weight 90 kg; Height 5 ft. 11 in. (180.34 cm); sv 16:21 BP 109 / 55; Pulse 85; Resp 16; Pulse Ox 100% ; sv 17:14 BP 101 / 42; Pulse 86; Resp 14; Pulse Ox 100% on R/A; sv 18:08 BP 108 / 47; Pulse 87; Resp 16; Pulse Ox 100% on R/A; sv 19:10 BP 112 / 45; Pulse 79; Resp 16; Temp 98.9; Pulse Ox 99% ; rr5 20:11 BP 101 / 48; Pulse 74; Resp 19; Pulse Ox 100% ; rr5 21:00 BP 107 / 45; Pulse 71; Resp 18; Pulse Ox 100% ; wh 16:12 Body Mass Index 27.67 (90.00 kg, 180.34 cm) sv ED Course: 15:19 Patient arrived in ED. sv 15:19 Alba Adams, LUIS A is Primary Nurse. sv 15:19 Chapo Newman PA is PHCP. jr8 15:19 Mart Singer MD is Attending Physician. jr8 15:21 Triage completed. sv 15:21 Arm band placed on. sv 15:21 Patient has correct armband on for positive identification. Bed in low position. Call light in reach. Side rails up X2. Pulse ox on. NIBP on. school bus monitor on. Door closed. Head of bed elevated. 15:30 First set of blood cultures drawn by me. sv 15:40 Second set of blood cultures drawn by me. COVID swab sent to lab. Flu and/or RSV swab sv sent to lab. Inserted saline lock: 20 gauge in right forearm, using aseptic technique. Blood collected. Flushed right forearm with 5 ml normal saline. 15:53 X-ray(s) taken. sv 16:[address] via stretcher. sv 16:09 XRAY Chest (1 view) In Process Unspecified. EDMS 16:15 CT Abd/Pelvis - Without Contrast In Process Unspecified. EDMS 16:[address] back from CT. sv 16:53 Deshawn Rojas MD is Hospitalizing Provider. rn 17:14 NGT: inserted 14 Fr. via right nare. verified placement of air over stomach, verified sv return of gastric contents, to intermittent suction. Returned gastric contents. Patient tolerated well. 18:35 lactate sepsis drawn by mi and sent to lab. dh3 18:56 Report given to Yung GUNN and Nico GUNN. sv 18:57 Primary Nurse role handed off by Alba Adams RN sv 19:09 Nico Lemus RN is Primary Nurse. rr5 19:09 No provider procedures requiring assistance completed. Patient admitted, IV remains in rr5 place. intact, No redness/swelling at site. 21:12 Report given to Jeffrey Ring RN. wh Administered Medications: 15:48 Drug: NS 0.9% 500 ml Route: IV; Rate: bolus; Site: right forearm; sv 16:45 Follow up: Response: No adverse reaction; IV Status: Completed infusion; IV Intake: sv 500ml 17:39 Drug: NS 0.9% 250 ml Route: IV; Rate: bolus; Site: right forearm; sv 19:12 Follow up: Response: No adverse reaction; IV Status: Completed infusion; IV Intake: rr5 250ml 17:39 Drug: Rocephin 1 grams Route: IV; Rate: calculated rate; Site: right forearm; sv 17:41 Follow up: Response: No adverse reaction; IV Status: Completed infusion; IV Intake: 10mlsv Intake: 16:45 IV: 500ml; Total: 500ml. sv 17:41 IV: 10ml; Total: 510ml. sv 19:12 IV: 250ml; Total: 760ml. rr5 Outcome: 16:53 Decision to Hospitalize by Provider. rn 19:09 Admitted to ER Hold. Please see [facility] for further documentation. rr5 19:09 Condition: stable 19:09 Instructed on the need for admit. 10/12 17:25 Patient left the ED. ca1 Signatures: Dispatcher [employer] EDMS Alba Adams RN RN sv Nieto, Roman, MD MD rn Roszak, Josh, PA PA jr8 Herrera, Deanna 3 Yung Montelongo Raymond, RN RN rr5 Felisa Looney RN RN ca1 Corrections: (The following items were deleted from the chart) 10/11 17:51 17:43 Reassessment: Pt wanted myself to call his granddaughter Richa and give her an sv update on his POC at [phone]. sv
--- NOTE | 2020-10-11 16:54 | EDPHYS ---
Physician Documentation [facility] Name: Steve Lopez Jr Age: 79 yrs Sex: Male : 1940 Arrival Date: 10/11/2020 Time: 15:19 Bed 13 Private MD: ED Physician Matr Singer HPI: 10/11 15:27 This 79 yrs old Black Male presents to ER via EMS with complaints of General Weakness, rn Nausea/Vomiting. 15:27 The patient presents to the emergency department with nausea, vomiting, abdominal pain, rn of the abdomen diffusely. 15:28 Onset: The symptoms/episode began/occurred 2 day(s) ago. Possible causes: unknown. The rn symptoms are aggravated by nothing. The symptoms are alleviated by nothing. 15:33 Associated signs and symptoms: Pertinent positives: abdominal pain, nausea, vomiting, rn Pertinent negatives: diarrhea, fever, GI bleeding. Severity of symptoms: At their worst the symptoms were mild in the emergency department the symptoms are unchanged. The patient has not experienced similar symptoms in the past. The patient has not recently seen a physician. Reports generalized weakness, nausea/vomiting, for 2-3 days, no blood in emesis, no diarrhea. Rpeorts mild mid abd pain. No headache/focal neuro complaint/chest pain/sob/cough. Last dialysis last .. Historical: - Allergies: 15:21 No Known Allergies; sv - PMHx: 15:21 Diabetes - IDDM; Glaucoma; heart attack; Hypertension; kidney disease; Prostate Cancer; sv - Immunization history:: Adult Immunizations up to date. - Social history:: Smoking status: . - Family history:: not pertinent. - Hospitalizations: : No recent hospitalization is reported. ROS: 15:33 Constitutional: Negative for fever, chills, and weight loss, Eyes: Negative for injury, rn pain, redness, and discharge, Neck: Negative for injury, pain, and swelling, Cardiovascular: Negative for chest pain, palpitations, and edema, Respiratory: Negative for shortness of breath, cough, wheezing, and pleuritic chest pain, Abdomen/GI: Negative for diarrhea, and constipation, Back: Negative for injury and pain, MS/Extremity: Negative for injury and deformity, Skin: Negative for injury, rash, and discoloration, Neuro: Negative for headache, numbness, tingling, and seizure. Exam: 15:33 Constitutional: This is a well developed, well nourished patient who is awake, alert, rn and in no acute distress. Head/Face: Normocephalic, atraumatic. ENT: dry MM Cardiovascular: Regular rate and rhythm. No pulse deficits. Respiratory: No increased work of breathing, no retractions or nasal flaring. Abdomen/GI: soft, mild central abd tenderness, non-distended, hyperactive bowel sounds Skin: Warm, dry MS/ Extremity: Pulses equal, no cyanosis. Neurovascular intact. Full, normal range of motion. Equal circumference. Neuro: Awake and alert, GCS 15, oriented to person, place, time, and situation. Cranial nerves II-XII grossly intact. Motor strength 4/5 in all extremities. Sensory grossly intact Vital Signs: 15:19 BP 91 / 54; Pulse 86; Resp 14; Temp 99; Pulse Ox 95% ; sv 16:12 Weight 90 kg; Height 5 ft. 11 in. (180.34 cm); sv 16:21 BP 109 / 55; Pulse 85; Resp 16; Pulse Ox 100% ; sv 17:14 BP 101 / 42; Pulse 86; Resp 14; Pulse Ox 100% on R/A; sv 18:08 BP 108 / 47; Pulse 87; Resp 16; Pulse Ox 100% on R/A; sv 19:10 BP 112 / 45; Pulse 79; Resp 16; Temp 98.9; Pulse Ox 99% ; rr5 20:11 BP 101 / 48; Pulse 74; Resp 19; Pulse Ox 100% ; rr5 21:00 BP 107 / 45; Pulse 71; Resp 18; Pulse Ox 100% ; wh 16:12 Body Mass Index 27.67 (90.00 kg, 180.34 cm) sv MDM: 15:19 Patient medically screened. jr8 16:21 ED course: going slow on fluids 2/2 ESRD. . rn 16:52 Differential diagnosis: small bowel obstruction, dehydration, sepsis, enteritis, rn colitis. Data reviewed: vital signs, nurses notes, lab test result(s), radiologic studies, CT scan, and as a result, I will admit patient. Counseling: I had a detailed discussion with the patient and/or guardian regarding: the historical points, exam findings, and any diagnostic results supporting the discharge/admit diagnosis, lab results, radiology results, the need for further work-up and treatment in the hospital. Response to treatment: the patient's symptoms have mildly improved after treatment, and as a result, I will admit patient. Admission orders: after a detailed discussion of the patient's condition and case, the admit orders are written by me. ED course: Consulted with Dr. Reynolds, will admit to Dr. Rojas, NG tube being placed now, abx ordered, NPO, BP improving with fluids. . 10/11 15:24 Order name: Basic Metabolic Panel; Complete Time: 16:21 rn 10/11 15:24 Order name: CBC with Diff rn 10/11 15:24 Order name: Hepatic Function; Complete Time: 16:21 rn 10/11 15:24 Order name: Lipase; Complete Time: 16:21 rn 10/11 15:24 Order name: Procalcitonin; Complete Time: 17:02 rn 10/11 15:24 Order name: Lactate; Complete Time: 16:21 rn 10/11 15:24 Order name: Blood Culture Adult (2) 10/11 15:24 Order name: Flu; Complete Time: 16:21 10/11 17:45 Order name: CBC with Automated Diff EDCA 10/11 17:45 Order name: CBC with Automated Diff EDCA 10/11 17:45 Order name: Comprehensive Metabolic Panel EDCA 10/11 17:45 Order name: Comprehensive Metabolic Panel EDCA 10/11 17:45 Order name: Lipase EDCA 10/11 17:45 Order name: Lipase EDCA 10/11 17:45 Order name: Magnesium EDMS 10/11 17:45 Order name: Magnesium EDMS 10/11 17:45 Order name: Phosphorus EDMS 10/11 17:45 Order name: Phosphorus EDMS 10/11 17:45 Order name: Protime (+INR) EDMS 10/11 17:45 Order name: Protime (+INR) EDMS 10/11 17:45 Order name: PTT, Activated Partial Thromb EDMS 10/11 17:45 Order name: PTT, Activated Partial Thromb EDMS 10/11 18:15 Order name: CBC Smear Scan EDMS 10/11 18:49 Order name: SARS-COV-2 RT PCR EDMS 10/11 19:07 Order name: Lactate Sepsis 2 HR Follow-up EDMS 10/12 09:51 Order name: Glucose, Ancillary Testing EDMS 10/12 09:54 Order name: Glucose, Ancillary Testing EDCA 10/12 11:29 Order name: Glucose, Ancillary Testing EDCA 10/12 12:05 Order name: Glucose, Ancillary Testing EDCA 10/11 15:24 Order name: IV Saline Lock; Complete Time: 15:50 rn 10/11 15:24 Order name: Labs collected and sent; Complete Time: 15:50 rn 10/11 15:24 Order name: CT Abd/Pelvis - Without Contrast; Complete Time: 16:41 rn 10/11 15:24 Order name: XRAY Chest (1 view); Complete Time: 16:41 rn 10/11 16:50 Order name: NG Tube; Complete Time: 17:14 rn 10/11 17:45 Order name: CONS Physician Consult EDCA 10/11 17:45 Order name: CONS Physician Consult EDCA 10/11 17:45 Order name: Renal EDCA 10/11 17:49 Order name: Abdomen Acute Series EDCA Administered Medications: 15:48 Drug: NS 0.9% 500 ml Route: IV; Rate: bolus; Site: right forearm; sv 16:45 Follow up: Response: No adverse reaction; IV Status: Completed infusion; IV Intake: sv 500ml 17:39 Drug: NS 0.9% 250 ml Route: IV; Rate: bolus; Site: right forearm; sv 19:12 Follow up: Response: No adverse reaction; IV Status: Completed infusion; IV Intake: rr5 250ml 17:39 Drug: Rocephin 1 grams Route: IV; Rate: calculated rate; Site: right forearm; sv 17:41 Follow up: Response: No adverse reaction; IV Status: Completed infusion; IV Intake: 10mlsv Disposition: 10/11/20 16:53 Hospitalization ordered by Deshawn Rojas for Inpatient Admission. Preliminary diagnosis are Small Bowel Obstruction, Hypotension, unspecified, Dehydration, End stage renal disease. - Bed requested for Telemetry/MedSurg (Inpatient). - Status is Inpatient Admission. ca1 - Condition is Stable. - Problem is new. - Symptoms have improved. Signatures: Dispatcher [employer] EDCA Rupa Quintanilla Stephanie, RN RN sv Nieto, Roman, MD MD rn Smirch, Shelby, RN RN Chapo Newman PA PA jr8 Felisa Looney RN RN ca1 Nico Lemus RN rr5 Corrections: (The following items were deleted from the chart) 17:49 17:46 Abdomen Acute Series ordered. EDCA EDMS 17:52 15:24 CORONAVIRUS+MR.LAB.BRZ ordered. EDCA EDMS 18:55 16:53 Hospitalization Ordered by Deshawn Rojas MD for Inpatient Admission. Preliminary ss diagnosis is Small Bowel Obstruction; Hypotension, unspecified; Dehydration; End stage renal disease. Bed requested for Telemetry/MedSurg (Inpatient). Status is Inpatient Admission. Condition is Stable. Problem is new. Symptoms have improved. rn 10/12 16:49 11 18:55 10/11/2020 16:53 Hospitalization Ordered by Deshawn Rojas MD for Inpatient bd Admission. Preliminary diagnosis is Small Bowel Obstruction; Hypotension, unspecified; Dehydration; End stage renal disease. Bed requested for [facility] ER HOLD. Status is Inpatient Admission. Condition is Stable. Problem is new. Symptoms have improved. ss 10/12 17:25 16:49 10/11/2020 16:53 Hospitalization Ordered by Deshawn Rojas MD for Inpatient ca1 Admission. Preliminary diagnosis is Small Bowel Obstruction; Hypotension, unspecified; Dehydration; End stage renal disease. Bed requested for Telemetry/MedSurg (Inpatient). Status is Inpatient Admission. Condition is Stable. Problem is new. Symptoms have improved. bd
[2020-10-11] MEDS ORDERED: HYDROMORPHONE HCL 1 MG/ML INJ IV PRN (17:38)
[2020-10-11] MEDS ORDERED: ONDANSETRON 4 MG/2 ML VIAL IV PRN (17:38)
[2020-10-11] MEDS ORDERED: ACETAMINOPHEN 500 MG TAB PO PRN (17:38)
[2020-10-11] MEDS ORDERED: CEFTRIAXONE/SWI 1gm 1 GM/10 ML SYR ONE (17:46)
[2020-10-11] MEDS ORDERED: NA CHLORIDE 0.9% 250 ML ONE (17:49)
[2020-10-11] MEDS: METRONIDAZOLE 500mg IVPB 500 MG/100 ML BAG IV SCH (18:00)
[2020-10-11] MEDS ORDERED: Levofloxacin500mg IV 500 MG/100 ML BAG IV SCH (18:00)
[2020-10-11 18:15] LABS: Blood Morphology Comment NOTED (NOT SEEN); Platelet Estimate ADEQ; Poikilocytosis 2+; White Blood Cell Scan OK (OK)
[2020-10-11] MEDS ORDERED: Levofloxacin500mg IV 500 MG/100 ML BAG IV ONE (20:26)
[2020-10-11] MEDS ORDERED: METRONIDAZOLE 500mg IVPB 500 MG/100 ML BAG IV ONE (20:26)
[2020-10-11 20:29] VITALS: BMI 23.5
[2020-10-11] MEDS: HEPARIN 5000 UNIT/ML 1 ML VIAL SQ SCH (22:52)
[2020-10-11] MEDS ORDERED: HEPARIN 5000 UNIT/ML 1 ML VIAL ONE (23:04)
[2020-10-12] MEDS: METRONIDAZOLE 500mg IVPB 500 MG/100 ML BAG IV SCH ×4 (00:52→18:01)
[2020-10-12] MEDS ORDERED: METRONIDAZOLE 500mg IVPB 500 MG/100 ML BAG IV ONE ×3 (00:55→08:29)
[2020-10-12 03:41] LABS: Absolute Lymphocytes (CBC) 0.4 K/uL (0.7-4.9); Basophils % 0.1 % (0-1.3); Hematocrit 32.5 % (39.6-49.0); Lymphocytes % 6.2 % (15.3-44.8); MPV 9.3 fL (7.6-11.3)
[2020-10-12 03:44] LABS: Protime INR 1.29
[2020-10-12 04:01] LABS: Albumin 2.8 g/dL (3.4-5.0); Bilirubin Total 0.5 mg/dL (0.2-1.0); Magnesium 2.2 mg/dL (1.8-2.4); Phosphorus 5.4 mg/dL (2.5-4.9); Potassium 3.9 mmol/L (3.5-5.1); Protein, Total 6.2 g/dL (6.4-8.2)
--- NOTE | 2020-10-12 08:21 | P.HP ---
Certification for Inpatient Patient admitted to: Inpatient With expected LOS: >2 Midnights Patient will require the following post-hospital care: None Practitioner: I am a practitioner with admitting privileges, knowledge of patient current condition, hospital course, and medical plan of care. Services: Services provided to patient in accordance with Admission requirements found in Title 42 Section 412.3 of the Code of Federal Regulations Patient History Date of Service: 10/11/20 Reason for admission: Small-bowel obstruction/history of the ESRD History of Present Illness: Patient is a 79-year-old gentleman who came to the hospital with abdominal pain along with nausea and vomiting. Patient had abdominal pain along with abdominal distension. Patient has been feeling ill for the last couple of days. Patient has a history of ESRD. In the emergency room, patient was worked up and CT imaging found ileal obstruction. Patient will need surgical evaluation. Will Consult Nephrology for hemodialysis as patient is dialyzed Sunday, , and Sunday. Patient has also had history of prostate cancer status post prostatectomy. Allergies No Known Allergies Allergy (Verified 10/11/20 20:18) - Past Medical/Surgical History Has patient received pneumonia vaccine in the past: Yes Diabetic: No -: Diabetes mellitus type 2 -: Hypertension -: History of prostate cancer with prostatectomy -: Chronic renal disease, multi cystic kidney disease -: CHF -: CAD -: Prostate surgery about 20 years ago -: AV fistula Psychosocial/ Personal History: The patient is . He has 3 children. - Family History Father Medical History: Heart disease, Hypertension Mother Medical History: Heart disease - Social History Smoking Status: Never smoker Alcohol use: No CD- Drugs: No Caffeine use: Yes Place of Residence: Home Review of Systems 10-point ROS is otherwise unremarkable Physical Examination - Vital Signs Temperature: 97.7 F Blood Pressure: 134/51 Pulse: 71 Respirations: 15 Pulse Ox (%): 100 - Physical Exam General: Alert, In no apparent distress, Oriented x3 HEENT: Atraumatic, PERRLA, Mucous membr. moist/pink, EOMI, Sclerae nonicteric Neck: Supple, 2+ carotid pulse no bruit, No LAD, Without JVD or thyroid abnormality Respiratory: Clear to auscultation bilaterally, Normal air movement Cardiovascular: Regular rate/rhythm, Normal S1 S2, No murmurs Gastrointestinal: No rebound, No guarding, Absent bowel sounds, Ascites, Tenderness Musculoskeletal: No clubbing, No swelling, No tenderness Integumentary: No rashes Neurological: Normal speech, Normal strength at 5/5 x4 extr, Normal tone, Sensation intact, Cranial nerves 3-12 intact, Normal affect - Studies Laboratory Data (last 24 hrs) 10/11/20 15:40: WBC 4.7, Hgb 11.9 L, Hct 36.7 L, Plt Count 175 10/11/20 15:40: Sodium 140, Potassium 3.7, BUN 65 H, Creatinine 7.92 H*, Glucose 81, Total Bilirubin 0.6, AST 9 L, ALT 8 L, Alkaline Phosphatase 59, Lipase 32 L Microbiology Data (last 24 hrs): 10/11/20 15:40 Nasopharnyx Influenza Type A Antigen Screen - Final 10/11/20 15:40 Nasopharnyx Influenza Type B Antigen Screen - Final Assessment & Plan - Problems (Diagnosis) (1) Small bowel obstruction Current Visit: Yes Status: Acute (2) ESRD (end stage renal disease) on dialysis Current Visit: No Status: Acute (3) Congestive heart failure Current Visit: No Status: Chronic Qualifiers: Heart failure type: unspecified Heart failure chronicity: chronic Qualified Code(s): I50.9 - Heart failure, unspecified (4) Essential hypertension Current Visit: No Status: Chronic (5) Type 2 diabetes mellitus Current Visit: No Status: Chronic Qualifiers: 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 General surgery consultation for small-bowel obstruction 2. Nephrology consultation for hemodialysis 3. Monitor electrolytes at this time 4. Monitor fluid status as well 5. Strict blood pressure and blood sugar control 6. NG tube with persistent nausea and vomiting 7. GI and DVT prophylaxis Discharge Plan: Home Plan to discharge in: Greater than 2 days - Advance Directives Does patient have a Living Will: Yes Does patient have a Durable POA for Healthcare: Yes - Code Status/Comfort Care Code Status Assessed: Yes Code Status: Full Code Critical Care: No Time Spent Managing PTS Care (In Minutes): 45
[2020-10-12] MEDS ORDERED: HEPARIN 5000 UNIT/ML 1 ML VIAL ONE (08:29)
--- NOTE | 2020-10-12 08:58 | RAD REPORT ---
EXAM DESCRIPTION: RAD - Abdomen Acute Series - 10/12/2020 8:43 am CLINICAL HISTORY: Abdominal pain FINDINGS: Dilated small bowel persists with diminished air in the colon compatible with obstruction. An enteric tube is coiled within the stomach. The tip lies within the fundus. No free air seen
[2020-10-12] MEDS ORDERED: D50W 25 GM/50 ML SYRINGE IV ONE ×2 (08:59→11:20)
[2020-10-12] MEDS ORDERED: D50W 50 ML IV ONE ×2 (09:12→11:32)
[2020-10-12] MEDS: HEPARIN 5000 UNIT/ML 1 ML VIAL SQ SCH ×2 (09:16→21:15)
[2020-10-12] MEDS ORDERED: NA CHLORIDE 0.9% 250 ML IV ONE ×2 (09:26→10:18)
[2020-10-12] MEDS ORDERED: DIGOXIN 0.25 MG/ML AMP IV ONE (09:30)
[2020-10-12] MEDS ORDERED: NA CHLORIDE 0.9% 250 ML ONE ×2 (09:45→10:31)
[2020-10-12] MEDS ORDERED: DIGOXIN 0.25 MG/ML AMP ONE (09:47)
[2020-10-12] MEDS ORDERED: EPOETIN ALFA 10,000 UNIT/ML VIAL IV SCH (11:15)
[2020-10-12] MEDS: D5 0.45 NS 500 ML IV SCH ×2 (11:59→22:00)
[2020-10-12] MEDS ORDERED: D5 0.45 NS 1,000 ML IV ONE (12:10)
--- NOTE | 2020-10-12 12:26 | CON ---
Date of Consultation: 10/12/2020 Additional Consulting Physician: Deshawn Rojas M.D. Reason For Consultation: Elevated BUN and creatinine, fluid management. History Of Present Illness: This is a 79-year-old gentleman with significant past medical history of end-stage renal disease, on dialysis TTS at [facility], last dialysis Sunday; hypertension; hyperlipidemia; diabetes complicated with neuropathy, nephropathy; prostate CA, status post TURP; light chain disease or remission; lymphedema secondary to Minoxidil. The patient was admi tted to the hospital with nausea, vomiting, found to have ileus. NG tube was placed. The patient major d 2 bowel movement so far. The patient due for dialysis today. The patient denied any fevers, any c hills. The patient is on room air. Past Medical History: Include: 1.Diabetes. 2.Hypertension. 3.Prostate cancer, status post prostatectomy. 4.Polycystic kidney disease, end-stage renal disease. 5.Coronary artery disease complicated with CHF. 6.Prostate cancer, status post TURP. Past Surgical History: Include: 1.Prostatectomy. 2.AV fistula creation. 3.TURP. Allergies: NO KNOWN DRUG ALLERGIES. Social History: Ex-smoker. Denied alcohol. Denied drug abuse. Family History: Positive for hypertension and diabetes. Review of Systems: Head and Neck: No red eye. No ear pain. GI: Has abdominal pain. Has nausea and vomiting. Has constipation. : No polyuria. No dysuria. No hematuria. MAINTENANCE CRAFTSMAN: Not applicable. Respiratory: No shortness of breath. Cardiovascular: No chest pain. Endocrine: No polydipsia. Skin: No rash. Neuro: Has neuropathy. Musculoskeletal: Has low back pain. Physical Examination: Vital Signs: When I saw the patient, patient lying in bed, not on oxygen. Has NG tube to suction. Blood pressure 134/51, pulse of 130 and regular. Chest: Clear to auscultation. Heart: S1 and S2 regular. Tachycardic. Abdomen: Soft. Mild tenderness on the epigastric area. Extremities: No edema. Neurologic: Alert and oriented x3. No tremor. Laboratory Data: WBC 6.9, H and H 10.7/32.5, platelets 151. Sodium 142, potassium 3.9, bicarb 26, B UN 77, creatinine 8.3, calcium 7.2, lactic acid 2.9, albumin 2.8. Corrected calcium is 8. Current Medications: The patient on it includes Levaquin, Flagyl, digoxin, Zofran. Assessment/plan: 1.End-stage renal disease, on dialysis Sunday, , Sunday. Looked to me normal volume to t he dry side. I am going to hold for the dialysis today. We will arrange for session of dialysis stephanie orrow. 2.Hypertension. Currently hypotension. Hold blood pressure medication. 3.Atrial fibrillation with rapid ventricular response. Agree with digoxin. We will bolus the patie nt with 250 of normal saline and we will place the patient on D5 half with gentle hydration and we wi ll follow up. 4.Ileus. Followup with the primary. 5.Anemia of chronic kidney disease. Resume LUDWIG. 6.Diabetes as by primary. 7.Coronary artery disease, congestive heart failure. Currently on the dry side. Hold diuresis. We will arrange for dialysis tomorrow. Follow up with Cardiology. Dr. Winkler for allowing us to participate in the care of your patient. LISSA Voice ID: [id number] Report ID: [id number]
--- NOTE | 2020-10-12 13:05 | CON ---
Date of Consultation: 10/12/2020 Brief History Of Present Illness: Patient is a 79-year-old man who comes to the hospital with abdomi nal bloating, nausea, and vomiting beginning approximately 1 to 2 days prior to his admission. He re socorro a little confused during my examination. He is awake and alert and conversive, but has poor in sight to his medical history and requires frequent redirection. He is not sleepy or lethargic, but d oes not seem to have good insight into his past medical situation. His symptoms include abdominal pa in, nausea, vomiting, decreased bowel function. However, since being admitted to the hospital, he major s had 2 bowel movements and so ultimately the patient feels significantly better. Complains of no ab dominal pain at this point. He has an NG tube in place. 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 He has an AV fistula placed. Social History: He is , has 3 children. He denies smoking, alcohol, recreational drug use. Review of Systems: Ten-point review of systems other than HPI, denies. Physical Examination: Vital Signs: At the time examination, blood pressure was 134/51, pulse 71, respiratory rate 15, temp erature 97.7, and O2 saturation 100% on room air. General: He is awake, alert, oriented. Psychiatric: He is conversive, but confused. Nonlethargic. HEENT: Normocephalic. His sclerae were anicteric. Mucous membranes were moist. Oropharynx clear. He has an NG tube in place with colored effluent. Abdomen: Soft, nontender, nondistended. No rebound. No guarding. No focal peritonitis. Extremities: No clubbing, cyanosis, edema. Skin: Warm, dry. Laboratory Data: Reveals a white blood count of 6.9, hemoglobin 10.7, hematocrit of 32.5, neutrophil s are 82%, his platelets are 151. His sodium was 142, potassium 3.9, chloride 105, carbon dioxide 21 , BUN 77, creatinine 8.3. His PT is 15.2, INR 1.29, PTT is 25.3. Glucose was 71. Lactic acid was 2 .9. On admission, AST 15, ALT 9, lipase is 23. Procal is 162. His COVID was negative. He had imag ing performed, which included a CT of abdomen and pelvis, 10/11, officially read as distal ileal obst ruction. He had an acute abdominal series on 10/12 at 6 a.m., which is officially read as dilated sm all bowel persists with diminished air in the colon compatible with obstruction. Enteric tube is in the stomach, tip lies within the fundus. No free air. Assessment And Plan: This is a 79-year-old male with a partial small bowel obstruction. 1.IV fluid hydration. 2.N.p.o. status. 3.Continue serial exams. 4.The patient is having bowel function. Continue medical management. 5.Medical management per primary team. Electrolyte correction and chronic kidney disease management . 6.I will follow along with you. Thank you for this interesting consult. YUNIOR/DEONTE Voice ID: [id number] Report ID: [id number]
[2020-10-12] MEDS ORDERED: METOPROLOL TARTRATE 5 MG/5 ML INJ IV STA (22:42)
[2020-10-13] MEDS: METRONIDAZOLE 500mg IVPB 500 MG/100 ML BAG IV SCH ×4 (00:38→13:47)
[2020-10-13 02:49] VITALS: O2SAT 98
--- NOTE | 2020-10-13 06:08 | EKG ---
Test Date: 2020-10-12 Test Time: 23:29:06 Hardware Trainer: MARVA MEASUREMENT RESULTS: Intervals: Rate: 70 LA: 134 QRSD: 148 QT: 428 QTc: 462 [place]: P: 21 LA: 134 QRS: -43 T: 51 INTERPRETIVE STATEMENTS: Sinus rhythm with fusion complexes Left axis deviation Right bundle branch block Minimal voltage criteria for LVH, may be normal variant Abnormal ECG Compared to ECG 10/12/2020 08:32:31 Fusion complex(es) now present Left-axis deviation now present Left ventricular hypertrophy now present Sinus tachycardia no longer present T-wave abnormality no longer present Possible ischemia no longer present Electronically Signed On 10-13-20 06:07:58 [employer] FLOOR LAYER by Gamal Lazo
--- NOTE | 2020-10-13 06:09 | EKG ---
Test Date: 2020-10-12 Test Time: 08:32:31 Rn Sane: EDELMIRA MEASUREMENT RESULTS: Intervals: Rate: 133 MA: 118 QRSD: 132 QT: 382 QTc: 568 [place]: P: MA: 118 QRS: 235 T: 185 INTERPRETIVE STATEMENTS: Sinus tachycardia Right bundle branch block T wave abnormality, consider lateral ischemia Abnormal ECG Compared to ECG 09/02/2020 20:27:49 Right bundle-branch block now present T-wave abnormality now present Sinus rhythm no longer present Fusion complex(es) no longer present Left-axis deviation no longer present Left ventricular hypertrophy no longer present Myocardial infarct finding no longer present ST (T wave) deviation no longer present Possible ischemia still present Electronically Signed On 10-13-20 06:08:17 [employer]CRAFT LANDING GEAR INSPECTOR by Gamal Lazo
--- NOTE | 2020-10-13 07:28 | ECHO ---
HEIGHT: 5 ft 10 in WEIGHT: 164 lb 0 oz DATE OF STUDY: 10/12/[address]: Deshawn Rojas MD 2-DIMENSIONAL: YES M.MODE: YES DOPPLER: YES COLOR FLOW: YES TDS: PORTABLE: YES DEFINITY: BUBBLE STUDY: DIAGNOSIS: ELEVATED HEART RATE CARDIAC HISTORY: CATHERIZATION: NO SURGERY: NO PROSTHETIC VALVE: NO PACEMAKER: NO MEASUREMENTS (cm) DIASTOLIC (NORMALS) SYSTOLIC (NORMALS) IVSd 1.2 (0.6-1.2) LA Diam 4.1 (1.9-4.0) LVEF 77% LVIDd 4.8 (3.5-5.7) LVIDs 2.6 (2.0-3.5) %FS 46% LVPWd 1.2 (0.6-1.2) Ao Diam 3.1 (2.0-3.7) 2 DIMENSIONAL ASSESSMENT: RIGHT ATRIUM: NORMAL LEFT ATRIUM: DILATED RIGHT VENTRICLE: NORMAL LEFT VENTRICLE: NORMAL TRICUSPID VALVE: NORMAL MITRAL VALVE: NORMAL PULMONIC VALVE: NORMAL AORTIC VALVE: SCLEROSIS PERICARDIAL EFFUSION: NONE AORTIC ROOT: NORMAL LEFT VENTRICULAR WALL MOTION: NORMAL DOPPLER/COLOR FLOW: NORMAL COMMENTS: AORTIC SCLEROSIS - NO STENOSIS. NORMAL LEFT VENTRICULAR SIZE AND FUNCTION. LEFT ATRIAL ENLARGEMENT. NO WALL MOTION ABNORMALITY. NO EFFUSION. TECHNOLOGIST: DANNIELLE BURDICK
--- NOTE | 2020-10-13 08:45 | P.PN ---
Subjective Date of Service: 10/13/20 Chief Complaint: Small-bowel obstruction/history of the ESRD Subjective: Improving (Patient has no pain, had NG clamped all evening, 3 BMs, passing gas.) Physical Examination - Vital Signs Temperature: 97.7 F Blood Pressure: 188/79 Pulse: 62 Respirations: 19 Pulse Ox (%): 98 - Physical Exam General: Alert, In no apparent distress, Cooperative HEENT: Mucous membr. moist/pink Respiratory: Clear to auscultation bilaterally Gastrointestinal: Soft and benign, Non-distended, No ascites, No tenderness, No masses, No rebound, No guarding Neurological: Normal speech Assessment And Plan - Current Problems (Diagnosis) (1) Small bowel obstruction Current Visit: Yes Status: Acute Plan: - Remove NG Tube - start clears and advance to fulls - if tolerated may be ok to DC in AM from surgical standpoint
--- NOTE | 2020-10-13 08:48 | P.PN ---
Subjective Date of Service: 10/12/20 Chief Complaint: Small-bowel obstruction/history of the ESRD Subjective: Improving (Patient had a BM and feels better) Physical Examination - Vital Signs Temperature: 97.7 F Blood Pressure: 188/79 Pulse: 62 Respirations: 19 Pulse Ox (%): 98 - Physical Exam General: Alert, In no apparent distress, Cooperative Gastrointestinal: Soft and benign, Non-distended, No ascites, No tenderness, No masses, No rebound, No guarding Assessment And Plan - Current Problems (Diagnosis) (1) Small bowel obstruction Current Visit: Yes Status: Acute Plan: - clamp trial for NGT, if tolerated after 6 hours, may DC NG
[2020-10-13] MEDS ORDERED: Levofloxacin 250mg IV 250 MG/50 ML BAG IV SCH (09:00)
[2020-10-13] MEDS: HEPARIN 5000 UNIT/ML 1 ML VIAL SQ SCH (09:00)
--- NOTE | 2020-10-13 09:03 | P.PN ---
Subjective Date of Service: 10/12/20 PATIENT IS CLINICALLY DOING WELL WITH NO NEW COMPLAINTS. WILL GO AHEAD AND CLAMP NG TUBE. SPOKE WITH GENERAL SURGERY. IF PATIENT DOES WELL THEN WILL DC NG TUBE. HEMODIALYSIS HAS BEEN CHANGED FOR TOMORROW Review of Systems 10-point ROS is otherwise unremarkable Physical Examination - Vital Signs Temperature: 97.7 F Blood Pressure: 188/79 Pulse: 62 Respirations: 19 Pulse Ox (%): 98 - Physical Exam General: Alert, In no apparent distress, Oriented x2 HEENT: Atraumatic, PERRLA, Other (NG TUBE IN PLACE), EOMI Neck: Supple, JVD not distended Respiratory: Clear to auscultation bilaterally, Normal air movement Cardiovascular: Regular rate/rhythm, Normal S1 S2, No murmurs Gastrointestinal: Normal bowel sounds, Soft and benign, Non-distended, No te nderness Musculoskeletal: No clubbing, No swelling, No tenderness Neurological: Normal speech, Normal tone, Normal affect Lymphatics: No axilla or inguinal lymphadenopathy - Studies Medications List Reviewed: Yes Assessment & Plan - Problems (Diagnosis) (1) Small bowel obstruction Current Visit: Yes Status: Acute (2) ESRD (end stage renal disease) on dialysis Current Visit: No Status: Acute (3) Congestive heart failure Current Visit: No Status: Chronic Qualifiers: Heart failure type: unspecified Heart failure chronicity: chronic Qualified Code(s): I50.9 - Heart failure, unspecified (4) Essential hypertension Current Visit: No Status: Chronic (5) Type 2 diabetes mellitus Current Visit: No Status: Chronic Qualifiers: Diabetes mellitus long term care administrator insulin use: with long term care administrator use Diabetes mellitus complication status: with kidney complications Diabetes mellitus complication detail: with chronic kidney disease Chronic kidney disease stage: on chronic dialysis Qualified Code(s): E11.22 - Type 2 diabetes mellitus with diabetic chronic kidney disease; N18.6 - End stage renal disease; Z79.4 - intermediate school teacher (current) use of insulin; Z99.2 - Dependence on renal dialysis - Plan Plan: 1. NG tube has been clamped. Will start a clear liquid diet 2. Nephrology consultation for hemodialysis which will be done tomorrow 3. Monitor electrolytes at this time 4. Monitor fluid status as well 5. Strict blood pressure and blood sugar control 6. Anticipate DC NG tube in a.m. 7. GI and DVT prophylaxis - Advance Directives Does patient have a Living Will: Yes Does patient have a Durable POA for Healthcare: Yes - Code Status/Comfort Care Code Status: Full Code
[2020-10-13] MEDS: D5 0.45 NS 500 ML IV SCH (09:08)
[2020-10-13] MEDS ORDERED: CLONIDINE HCL 0.3 MG TAB PO ONE (09:27)
--- NOTE | 2020-10-13 11:47 | PN ---
Date of Progress Note: 10/13/2020 Subjective: The patient was admitted with ileus. The patient seen on dialysis. This is a dialysis note. The patient started liquid diet. Physical Examination: Vital Signs: Blood pressure 178/72, pulse of 62, afebrile. Chest: Clear to auscultation. Heart: S1, S2. Regular. Abdomen: Soft, nontender. Extremities: Lymphedema. Trace edema. Neurological: Alert and oriented x3. No focal. Laboratory Data: Sodium 142, potassium 3.9, bicarb 26, BUN 77, creatinine 8.3, calcium 7.2, phosphor us 5.4. Current Medications: The patient on include doxycycline, Levaquin 500 every 48 hours, metronidazole 500 q.6, Epogen, heparin, atorvastatin, clonidine 0.3 t.i.d., Cardura 2 b.i.d., hydralazine 50 t.i.d. Assessment And Plan: 1.End-stage renal disease, seen on dialysis. Given that the patient only liquid diet just started, I am going to decrease the goal from 2800 to 2 L and we will monitor the patient. The patient is goi ng to have another session of dialysis tomorrow to back up to his schedule. 2.Anemia of chronic kidney disease. Continue LUDWIG. 3.Hypokalemia. The patient is going to be dialyzed on high potassium bath, change potassium. 4.Hypertension. Increase hydralazine. 5.Ileus as by Surgery. ELEONORA/DEONTE Voice ID: [id number] Report ID: [id number]
--- NOTE | 2020-10-13 11:53 | PN ---
Date of Progress Note: 10/13/2020 Subjective: The patient was admitted with an ileus, questionable of small bowel obstruction. The pa tient was managed conservatively. The patient started on liquid diet today. Objective: Vital Signs: When I saw the patient, blood pressure 188/79, pulse of 62, afebrile. Chest: Clear to auscultation. Heart: S1, S2. Regular. Systolic murmur. Abdomen: Soft, nontender. Extremities: Lymphedema. Trace edema. Neurologic: Alert, oriented x3. Nonfocal. Laboratory Data: H and H 10.7/32.5. Sodium 142, potassium 3.9, bicarb 26, BUN 77, creatinine 8.3, c alcium 7.2, phosphor 5.4, albumin 2.8. Corrected calcium is 8. Current Medications: The patient is on include: 1.Doxycycline. 2.Levaquin 500 q.48 hours. 3.Metronidazole 500 t.i.d. 4.Plavix. 5.Epogen. 6.Clonidine 0.3 t.i.d. 7.Cardura. 8.Hydralazine. 9.Lactulose. Assessment And Plan: 1.End-stage renal disease, stable. We will continue dialysis. The patient is going to be dialyzed today and tomorrow to back up to his schedule and we will monitor. 2.Hypertension, not controlled. We will follow up blood pressure after dialysis. I am going to go ahead and increase his hydralazine for the time being to 75 mg. 3.Anemia of chronic kidney disease. Continue LUDWIG. 4.Ileus. As by Surgery and hospitalist. LISSA Voice ID: [id number] Report ID: [id number]
--- NOTE | 2020-10-13 13:52 | P.DS ---
Discharge Date: 10/13/20 Disposition: ROUTINE DISCHARGE Discharge Condition: GOOD Reason for Admission: Small-bowel obstruction/history of the ESRD - Problems (1) Small bowel obstruction Status: Acute (2) ESRD (end stage renal disease) on dialysis Status: Acute (3) Congestive heart failure Status: Chronic Qualifiers: Heart failure type: unspecified Heart failure chronicity: chronic Qualified Code(s): I50.9 - Heart failure, unspecified (4) Essential hypertension Status: Chronic (5) Type 2 diabetes mellitus Status: Chronic Qualifiers: Diabetes mellitus fpc insulin use: with fpc use Diabetes mellitus complication status: with kidney complications Diabetes mellitus complication detail: with chronic kidney disease Chronic kidney disease stage: on chronic dialysis Qualified Code(s): E11.22 - Type 2 diabetes mellitus with diabetic chronic kidney disease; N18.6 - End stage renal disease; Z79.4 - long-term (current) use of insulin; Z99.2 - Dependence on renal dialysis Brief History of Present Illness: Patient is a 79-year-old gentleman who came to the hospital with abdominal pain along with nausea and vomiting. Patient had abdominal pain along with abdominal distension. Patient has been feeling ill for the last couple of days. Patient has a history of ESRD. In the emergency room, patient was worked up and CT imaging found ileal obstruction. Patient will need surgical evaluation. Will Consult Nephrology for hemodialysis as patient is dialyzed Sunday, , and Sunday. Patient has also had history of prostate cancer status post prostatectomy. Hospital Course: Patient has done well during hospital stay. Patient is clinically doing much better. Patient was dialyzed by nephrology. At this time, patient is stable for discharge with continued outpatient followup with PCP, nephrology, and surgery. Close outpatient follow up. Vital Signs/Physical Exam: Temp Pulse Resp BP Pulse Ox 97.7 F 62 19 188/79 H 98 10/13/20 09:03 10/13/20 13:42 10/13/20 09:03 10/13/20 13:42 10/13/20 09:03 General: Alert, In no apparent distress, Oriented x3 Laboratory Data at Discharge: WBC 6.9 K/uL (4.3-10.9) D 10/12/20 03:08 Hgb 10.7 g/dL (13.6-17.9) L 10/12/20 03:08 Hct 32.5 % (39.6-49.0) L 10/12/20 03:08 Plt Count 151 K/uL (152-406) L 10/12/20 03:08 PT 15.2 SECONDS (9.5-12.5) H 10/12/20 03:08 INR 1.29 10/12/20 03:08 APTT 25.3 SECONDS (24.3-36.9) 10/12/20 03:08 Sodium 142 mmol/L (136-145) 10/12/20 03:08 Potassium 3.9 mmol/L (3.5-5.1) 10/12/20 03:08 BUN 77 mg/dL (7-18) H 10/12/20 03:08 Creatinine 8.34 mg/dL (0.55-1.3) H* 10/12/20 03:08 Glucose 71 mg/dL (74-106) L 10/12/20 03:08 Phosphorus 5.4 mg/dL (2.5-4.9) H 10/12/20 03:08 Magnesium 2.2 mg/dL (1.8-2.4) 10/12/20 03:08 Total Bilirubin 0.5 mg/dL (0.2-1.0) 10/12/20 03:08 AST 15 U/L (15-37) 10/12/20 03:08 ALT 9 U/L (12-78) L 10/12/20 03:08 Alkaline Phosphatase 51 U/L (45-117) 10/12/20 03:08 Lipase 23 U/L (73-393) L 10/12/20 03:08 Home Medications: Atorvastatin Calcium [Lipitor*] 10 mg PO BEDTIME 10/12/20 Clonidine HCl [Catapres] 0.3 mg PO BID 10/12/20 Clopidogrel Bisulfate [Plavix*] 75 mg PO DAILY 10/12/20 Doxazosin [Cardura*] 2 mg PO BID 10/12/20 Doxycycline Hyclate [Vibramycin] 100 mg PO BID 10/12/20 Fluticasone/Umeclidin/Vilanter [Trelegy Ellipta 100-62.5-25] 1 puff IH DAILY 10/12/20 Hydralazine HCl [Apresoline] 50 mg PO TID 10/12/20 Insulin Degludec [Tresiba Flextouch U-200] 30 units SQ DAILY 10/12/20 Lactulose [Enulose] 10 gm PO DAILY 10/12/20 Levofloxacin [Levaquin] 500 mg PO Q48H 10/12/20 Lidocaine/Prilocaine 30 Gm Cre 1 robin TOP T,TH,S 10/12/20 Patient Discharge Instructions: OK TO DC IV AND DC HOME. FOLLOW-UP WITH PRIMARY CARE PROVIDER IN 1-2 WEEKS. FOLLOW-UP WITH NEPHROLOGY FOR HEMODIALYSIS. FOLLOW UP WITH GENERAL SURGERY IN 2-4 WEEKS FOR SMALL-BOWEL OBSTRUCTION. RETURN TO THE ER IF SYMPTOMS WORSEN. CALL or TEXT DR. FAJARDO AT [phone] IF ANY QUESTIONS REGARDING HOSPITAL STAY. PLEASE CALL THE FLOOR AT [phone] IF ANY MEDICATION OR NURSING QUESTIONS. Diet: Renal Activity: Fall precautions Followup: Lucy Mercedes MD [ACTIVE - CAN ADMIT] - () Hector Reynolds MD [ACTIVE - CAN ADMIT] - (Follow up in office in 2-4 weeks. Call to schedule an appointment. ) Time spent managing pt's care (in minutes): 35
[2020-10-13] MEDS ORDERED: CLONIDINE HCL 0.3 MG TAB PO SCH (14:00)
[2020-10-13] MEDS ORDERED: HYDRALAZINE HCL 25 MG TABLET PO SCH ×2 (14:00)
[2020-10-13] MEDS ORDERED: DOXAZOSIN 2 MG TAB PO SCH (21:00)
[2020-10-13] MEDS ORDERED: ATORVASTATIN 10 MG TAB PO SCH (21:00)
[2020-10-13] MEDS ORDERED: DOXYCYCLINE 100 MG CAP PO SCH (21:00)
[2020-10-14] MEDS ORDERED: LACTULOSE 20 GM/30 ML UCUP PO SCH (09:00)
[2020-10-14] MEDS ORDERED: CLOPIDOGREL 75 MG TABLET PO SCH (09:00)
[2020-10-14] MEDS ORDERED: INSULIN DEGLUDEC 30 UNIT SQ SCH (09:00)
[2020-10-14] MEDS ORDERED: HOME MED 1 EA UNK (Fluticasone/Umeclidin/Vilanter [Trelegy Ellipta 100-62.5-25] 1 PUFF) IH SCH (09:00)
[2020-10-15] MEDS ORDERED: levoFLOXacin 500 MG TAB PO SCH (09:00)
[2020-10-21 15:04] VITALS: TEMP 97.7
[2020-10-21 15:06] VITALS: BP 188/79
== END 2020-10-13 15:32 | disposition home or self-care (01) | DRG 388 ==
LOC: ER 15:18 → ERHOLD 17:41 → 2ND 10-12 17:15
PROVIDERS: ADMIT Hospitalist; ATTEND Hospitalist
PROC: 5A1D70Z Performance of Urinary Filtration, Intermittent, Less than 6 Hours Per Day (ICD-10-PCS; principal; 2020-10-12)
DX: K56.690 Other partial intestinal obstruction (principal); N18.6 End stage renal disease; I50.31 Acute diastolic (congestive) heart failure; I13.2 Hypertensive heart and chronic kidney disease with heart failure and with stage 5 chronic kidney disease, or end stage renal disease; E11.22 Type 2 diabetes mellitus with diabetic chronic kidney disease; E11.40 Type 2 diabetes mellitus with diabetic neuropathy, unspecified; E78.5 Hyperlipidemia, unspecified; D63.1 Anemia in chronic kidney disease; E87.6 Hypokalemia; I48.91 Unspecified atrial fibrillation; I25.10 Atherosclerotic heart disease of native coronary artery without angina pectoris; I25.2 Old myocardial infarction; Z85.46 Personal history of malignant neoplasm of prostate; Z99.2 Dependence on renal dialysis; Z79.4 Long term (current) use of insulin; Z87.891 Personal history of nicotine dependence; Z79.02 Long term (current) use of antithrombotics/antiplatelets; Z79.899 Other long term (current) drug therapy; Z20.828 Contact with and (suspected) exposure to other viral communicable diseases
CPT/HCPCS: 36415; 71045; 74022; 74176; 80048; 80053; 80076; 82947; 83605; 83690; 83735; 84100; 84145; 85025; 85610; 85730; 87040; 87804; 90935; 93005; 93306; 96361; 96365; 96366; 96375; 99285; J0696; J1160; J1170; J1644; J7040; J7050; J7799; Q5105; U0003

== ENCOUNTER 2021-06-02 10:28 | Inpatient (IN) | payer MEDICARE ==
--- OUTSIDE RECORDS SUMMARY | 2021-06-02 10:32 | XMS REPORT | Continuity of Care Document ---
:1940 Author Organization [facility] t Address [address] [place] [address] Care Team Providers Name Role Phone Sebastian Roth MD Primary Care Physician [phone] TRINA Attending Clinician Unavailable GRAYSON Attending Clinician Unavailable OSCAR Attending Clinician Unavailable OSCAR Admitting Clinician Unavailable Problems Condition Condition Condition Status Onset Resolution Last Treating Co mments Source Name Details Category Date Date Treatment Clinician Date Kidney Kidney Disease Active 2016-[address] [facility] Allergies, Adverse Reactions, Alerts This patient has no known allergies or adverse reactions. Family History Family Member Diagnosis Comments Start Date Stop Date Source Natural father Heart disease [place] [facility] Natural mother Asthma [place] [facility] Natural mother Diabetes [place] [facility] Natural mother Hypertension [place] [facility] Social History Social Habit Start Date Stop Date Quantity Comments Source History of tobacco Cigar Smoker [place] [facility] use History [facility] Alcohol Std Drinks History [facility] Alcohol Binge Tobacco use and 2020-01-06 2020-01-06 Never used [facility] ethodist exposure 00:00:00 00:00:00 Alcohol intake 2020-01-06 2020-01-06 Lifetime [facility] 00:00:00 00:00:00 non-drinker (finding) History SDPR 2020-01-05 2020-01-05 1 [place] [facility] Alcohol Frequency 00:00:00 00:00:00 [birth year] Mikal Becker ethodist 00:00:00 00:00:00 Smoking Status Start Date Stop Date Source Former smoker 2020-01-06 00:00:00 2020-01-06 00:00:00 [facility] Medications Ordered Filled Start Stop Current Ordering Indication Dosage Frequency Signature Comments Components Source Medication Medication Date Date Medication? Clinician (SIG) Name Name atorvastati Yes atorvastat Ren n (LIPITOR) 2-24 in 10 mg Meth erna 10 MG 15:10: tablet TK st tablet 48 1 T PO QD doxazosin 2019-0 Yes doxazosin Sam ston (CARDURA) 2 2-24 2 mg Methodi MG tablet 15:10: tablet TK st 48 1 T PO HS clonIDINE 2019-0 Yes .3mg [id number] 0.3 mg 3 Ren (CATAPRES) 2-24 [id number] (three) Methodi 0.1 MG 15:10: 3D times a st tablet 48 day. hydrALAZINE 0 Yes 50mg Q.[id number] 50 mg 3 [place] (APRESOLINE 2-24 [id number] (three) Methodi ) 25 MG 15:10: 3D times a st tablet 48 day. carvediloL 0 Yes 3.125mg Q.5D Take 3.125 Ren (COREG) 2-24 mg by Methodi 3.125 MG 15:10: mouth 2 st tablet 48 (two) times a day with meals. insulin 2019-0 Yes Tresiba Ren degludec 2-24 FlexTouch Method i (TRESIBA 15:10: U-200 st FLEXTOUCH 48 insulin U-200) 200 200 unit/mL (3 unit/mL (3 mL) insulin mL) pen subcutaneo us pen INJECT 30 UNITS SUBCUTANEO USLY QD docusate 2019-0 Yes Stool [place] sodium 2-24 Softener Methodi (COLACE) 15:10: [address] 100 MG 48 capsule TK capsule 1 C PO BID metoprolol 2016-11 Yes 50mg QD Take [address] (TOPROL-XL) 2-15 by mouth [facility] - 50 MG 24 hr 14:58: daily. Medi west tablet 35 Center acarbose 2016-11 Yes 50mg Take [address] [facility] (PRECOSE) 2-15 by mouth 3 [facility] - 50 MG 14:58: (three) Medical tablet 35 times Center daily with meals. furosemide 2016-11 Yes 40mg QD Take [address] (LASIX) 40 2-15 by mouth [facility] - MG tablet 14:58: daily. Medica l 35 [place] atorvastati 2016-11 Yes 10mg QD Take [address] (LIPITOR) 2-15 by mouth Luke s - 10 MG 14:58: nightly. Medical tablet 35 [place] allopurinol 2016-11 Yes 100mg QD Take [address] (ZYLOPRIM) 2-15 mg by [facility] - 100 MG 14:58: mouth Medical tablet 35 daily. Center Immunizations Ordered Immunization Filled Immunization Date Status Commen ts Source Name Name Influenza High Dose 2017-10-26 [facility] [facility] Pneumococcal 2017-10-[address] [facility] - Polysaccharide 00:00:00 Medical Ce nter (Pneumovax) Procedures This patient has no known procedures. Plan of Care Planned Activity Planned Date Details Comments Source Future Scheduled 2021-06-12 INFLUENZA VACCINE [place] [facility] 00:00:00 [code = INFLUENZA VACCINE] Future Scheduled 1991 SHINGLES VACCINES [place] [facility] Test 00:00:00 (#1) [code = SHINGLES VACCINES (#1)] Future Scheduled 1959 Hepatitis C [place] [facility] Test 00:00:00 screening (procedure) [code = 306422938] Future Scheduled 1953 COVID-19 VACCINE (1) Sam mcnamara [facility] Test 00:00:00 [code = COVID-19 VACCINE (1)] Encounters Start End Encounter Admission Attending Care Care Encounter Source Date/Time Date/Time Type Type Clinicians Facility Department ID 2020-01-02 2020-01-02 Outpatient TRINA [facility] [id number] [place] 00:00:00 00:00:00 CAMIL[facility] [address] 2020-01-02 2020-01-02 Outpatient JAMIE [facility] [id number] [place] 00:00:00 00:00:00 KI, [address] Results Test Description Test Time Test Comments Results Result Comments Source BLOOD CULTURE 2017-10-27 10:00:00 Test Item Value Reference Range Interpretation Comme nts CULTURE (BEAKER) (test code = 1095) No growth in 5 days BLOOD [id number] 10:00:00 Test Item Value Reference Range Interpretation Comments CULTURE (BEAKER) (test No growth in 5 days code = 1095) POCT-GLUCOSE [id number] 12:18:00 Test Item Value Reference Range Interpretation Comments POC-GLUCOSE METER 181 mg/dL 70-110 H TESTED AT [facility] 6720 (BEAKER) (test code = [facility] 1538) 58656 POCT-GLUCOSE [id number] 08:05:00 Test Item Value Reference Range Interpretation Comments POC-GLUCOSE METER 143 mg/dL 70-110 H TESTED AT [place] [address] [facility] (test code = [facility] 1538) [address] BASIC METABOLIC [id number] 06:08:00 Test Item Value Reference Range Interpretation [...] S NOT APPLICABLE FOR DIALYSIS PATIEN TS. [id number] 06:03:00 Test Item Value Reference Range Interpretation Comments PHOSPHORUS (BEAKER) (test code = 3.4 mg/dL 2.3-4.7 604) [id number] 06:03:00 Test Item Value Reference Range Interpretation Comments MAGNESIUM (BEAKER) (test code = 1.9 mg/dL 1.6-2.6 627) CBC W/PLT COUNT & AUTO [id number] 05:38:00 Test Item Value Reference Range Interpretation [...] EOSINOPHILS ABSOLUTE COUNT 0.14 K/ L 0.04-0.54 ([facility]) (test code = 416) BASOPHILS ABSOLUTE COUNT ([facility]) 0.02 K/ L 0.01-0.08 (test code = 417) IMMATURE GRANULOCYTES-RELATIVE 0 % 0-1 PERCENT ([facility]) (test code = 2801) CALCIUM, [id number] 05:36:00 Test Item Value Reference Range Interpretation Comments CALCIUM IONIZED ([facility]) (test 0.89 mmol/L 1.12-1.27 L code = 698) PH, BLOOD ([facility]) (test code = 7.54 1810) POCT-GLUCOSE [id number] 21:59:00 Test Item Value Reference Range Interpretation Comments POC-GLUCOSE METER 184 mg/dL 70-110 H TESTED AT [place] [address] ([facility]) (test code = [facility] 1538) 80245 POCT-GLUCOSE [id number] 17:35:00 Test Item Value Reference Range Interpretation Comments POC-GLUCOSE METER 130 mg/dL 70-110 H TESTED AT [place] [address] ([facility]) (test code = [facility] 1538) 07248 POCT-GLUCOSE [id number] 11:42:00 Test Item Value Reference Range Interpretation Comments POC-GLUCOSE METER 161 mg/dL 70-110 H TESTED AT [place] [address] ([facility]) (test code = [facility] 1538) 14500 POCT-GLUCOSE [id number] 10:42:00 Test Item Value Reference Range Interpretation Comments POC-GLUCOSE METER 172 mg/dL 70-110 H TESTED AT [place] [address] ([facility]) (test code = [facility] 1538) 77237 CBC W/PLT COUNT & AUTO [id number] 09:06:00 Test Item Value Reference Range Interpretation Comments WHITE BLOOD CELL COUNT ([facility]) 10.7 K/ L 3.5-10.5 H (test code = 775) RED BLOOD CELL COUNT ([facility]) 3.06 M/ L 4.63-6.08 L (test code = 761) HEMOGLOBIN ([facility]) (test code = 7.7 GM/DL 13.7-17.5 L 410) HEMATOCRIT ([facility]) (test code = 23.7 % 40.1-51.0 L [...] (BEAKER) (test code = 2801) BASIC METABOLIC [id number] 08:20:00 Test Item Value Reference Range Interpretation [...] S NOT APPLICABLE FOR DIALYSIS PATIEN TS. [id number] 07:57:00 Test Item Value Reference Range Interpretation Comments PHOSPHORUS (BEAKER) (test code = 3.2 mg/dL 2.3-4.7 604) [id number] 07:57:00 Test Item Value Reference Range Interpretation Comments MAGNESIUM (BEAKER) (test code = 1.7 mg/dL 1.6-2.6 627) CALCIUM, [id number] 07:40:00 Test Item Value Reference Range Interpretation Comments CALCIUM IONIZED (BEAKER) (test 0.95 mmol/L 1.12-1.27 L code = 698) PH, BLOOD (BEAKER) (test code = 7.53 1810) POCT-GLUCOSE [id number] 21:39:00 Test Item Value Reference Range Interpretation Comments POC-GLUCOSE METER 138 mg/dL 70-110 H TESTED AT [place] [address] ([facility]) (test code = [facility] 1538) 68709 POCT-GLUCOSE [id number] 18:16:00 Test Item Value Reference Range Interpretation Comments POC-GLUCOSE METER 158 mg/dL 70-110 H TESTED AT [place] [address] ([facility]) (test code = [facility] 1538) 24030 POCT-GLUCOSE [id number] 12:07:00 Test Item Value Reference Range Interpretation Comments POC-GLUCOSE METER 153 mg/dL 70-110 H TESTED AT [place] [address] ([facility]) (test code = [facility] 1538) 19793 POCT-GLUCOSE [id number] 08:12:00 Test Item Value Reference Range Interpretation Comments POC-GLUCOSE METER 133 mg/dL 70-110 H TESTED AT [facility] 6720 (BEAKER) (test code = [place] 1538) [address] BASIC METABOLIC [id number] 05:25:00 Test Item Value Reference Range Interpretation [...] NOT APPLICABLE FOR DIALYSIS PATIEN TS. CALCIUM, [id number] 05:23:00 Test Item Value Reference Range Interpretation Comments CALCIUM IONIZED (BEAKER) (test 0.88 mmol/L 1.12-1.27 L code = 698) PH, BLOOD (BEAKER) (test code = 7.50 1810) [id number] 05:22:00 Test Item Value Reference Range Interpretation Comments PHOSPHORUS (BEAKER) (test code = 3.7 mg/dL 2.3-4.7 604) [id number] 05:22:00 Test Item Value Reference Range Interpretation Comments MAGNESIUM (BEAKER) (test code = 1.8 mg/dL 1.6-2.6 627) CBC W/PLT COUNT & AUTO [id number] 05:10:00 Test Item Value Reference Range Interpretation [...] (BEAKER) (test code = 2801) HEMOGLOBIN AND [id number] 00:40:00 Test Item Value Reference Range Interpretation Comments HEMOGLOBIN (KISHAN) (test code = 7.1 GM/DL 13.7-17.5 L 410) HEMATOCRIT (KISHAN) (test code = 21.6 % 40.1-51.0 L 411) Send specimen after 2 units PRBC transfusion is completedPOCT-GLUCOSE METER 2017-10-23 21:20:00 Test Item Value Reference Range Interpretation Comments POC-GLUCOSE METER 114 mg/dL 70-110 H TESTED AT [facility] 6720 (KISHAN) (test code = [facility] 1538) [address] POCT-GLUCOSE [id number] 17:14:00 Test Item Value Reference Range Interpretation Comments POC-GLUCOSE METER 92 mg/dL 70-110 TESTED AT [place] [address] [facility] (test code = [facility] [place] [facility] [address] 1538) ANG, EMBOLIZATION, EXTENSIVE - [id number] 15:08:00Reason for exam:- >left kidney intraparenchymal hemorrhageReason for exam:->please review filmsand consider embolization, please call Dr Duke with urology to discuss- [phone] REPORT Renal arteriogram: Pertinent clinical information: Left [...] guide wire was advanced centrally. A 5 Icelandic catheter was advanced with its distal tip [...] Tia Ashford Verified Date/Time: 10/23/201715:08:40 Reading Location: [facility] P048 Angio Body Reading Room URINE CULTURE 2017-10-23 10:50:00 Test Item Value Reference Range Interpretation Comments CULTURE (BEAKER) (test code = 1095) No growth [id number] 10:38:00 Test Item Value Reference Range Interpretation [...] (BEAKER) (test code = 2801) BASIC METABOLIC [id number] 07:46:00 Test Item Value Reference Range Interpretation [...] S NOT APPLICABLE FOR DIALYSIS PATIEN TS. [id number] 07:41:00 Test Item Value Reference Range Interpretation Comments PHOSPHORUS (BEAKER) (test code = 3.5 mg/dL 2.3-4.7 604) [id number] 07:41:00 Test Item Value Reference Range Interpretation Comments MAGNESIUM (BEAKER) (test code = 1.8 mg/dL 1.6-2.6 627) POCT-GLUCOSE [id number] 07:13:00 Test Item Value Reference Range Interpretation Comments POC-GLUCOSE METER 124 mg/dL 70-110 H TESTED AT [facility] 6720 (BEAKER) (test code = [place] 1538) [address] CT, [id number] 00:22:00FINAL REPORT CT, ABDOMEN \T\ PELVIS, WITHOUT [...] MDReport Verified Date/Time: 10/23/2017 00:22:43 Reading Location: [address] Body Reading Room CREATINE KINASE (CK)2017-10-22 21:31:00 Test Item Value Reference Range Interpretation Comments CREATINE KINASE TOTAL (BEAKER) (test 167 U/L 29-200 code = 380) LACTIC ACID, VENOUS, WHOLE [id number] 21:24:00 Test Item Value Reference Range Interpretation Comments LACTATE BLOOD VENOUS (2) (BEAKER) 0.8 mmol/L 0.5-2.2 (test code = 2872) Effective 03/15/2016: Units/Reference Range ChangeNew: 0.5-2.2 mmol/L Previous: 5-20 mg/dLPOCT-GLUCOSE [id number] 21:23:00 Test Item Value Reference Range Interpretation Comments POC-GLUCOSE METER 130 mg/dL 70-110 H TESTED AT [facility] 6720 (BEAKER) (test code = [place] 1538) [address] SODIUM, RANDOM [id number] 20:29:00 Test Item Value Reference Range Interpretation Comments SODIUM URINE (BEAKER) (test code = 24 meq/L 243) Reference Range: No NormalsCREATININE, RANDOM [id number] 20:27:00 Test Item Value Reference Range Interpretation Comments CREATININE URINE (BEAKER) (test 155.1 mg/dL code = 375) Reference Range: No NormalsPROTEIN, RANDOM [id number] 20:27:00 Test Item Value Reference Range Interpretation Comments PROTEIN, URINE (BEAKER) (test code = 60 mg/dL 0-14 H 1569) URINALYSIS W/ [id number] 20:27:00 Test Item Value Reference Range Interpretation [...] 1585) SOURCE(BEAKER) (test code = Urine, [place] 5196) POCT-GLUCOSE [id number] 17:05:00 Test Item Value Reference Range Interpretation Comments POC-GLUCOSE METER 113 mg/dL 70-110 H TESTED AT [facility] 6720 (BEAKER) (test code = [place] 1538) [address] [id number] 16:24:00 Test Item Value Reference Range Interpretation Comments PROSTATE SPECIFIC ANTIGEN (BEAKER) 0.0 ng/mL 0.0-4.0 (test code = 844) POCT-GLUCOSE [id number] 11:21:00 Test Item Value Reference Range Interpretation Comments POC-GLUCOSE METER 146 mg/dL 70-110 H TESTED AT [facility] 6720 (BEAKER) (test code = ALEKSANDRA [place] 1538) [address] HEMOGLOBIN AND [id number] 11:19:00 Test Item Value Reference Range Interpretation Comments HEMOGLOBIN (BEAKER) (test code = 6.4 GM/DL 13.7-17.5 L 410) HEMATOCRIT (BEAKER) (test code = 20.0 % 40.1-51.0 L 411) U/S, RENAL, [id number] 09:08:00Reason for exam:->left intraparenchymal hematoma on CTFINAL [...] MDReport Verified Date/Time: 10/22/2017 09:08:47 Reading Location: [facility] [id number] Ultrasound Reading Room POCT-GLUCOSE [id number] 08:05:00 Test Item Value Reference Range Interpretation Comments POC-GLUCOSE METER 154 mg/dL 70-110 H TESTED AT [facility] 6720 (BEAKER) (test code = [place] 1538) [address] URINALYSIS W/ [id number] 07:56:00 Test Item Value Reference Range Interpretation [...] 1584) SOURCE(BEAKER) (test code = Urine, Voided 1279) COMPREHENSIVE METABOLIC [id number] 07:45:00 Test Item Value Reference Range Interpretation [...] PATIEN TS. CBC W/PLT COUNT & AUTO [id number] 05:44:00 Test Item Value Reference Range Interpretation [...] PERCENT (BEAKER) (test code = 2801) POCT-GLUCOSE [id number] 22:09:00 Test Item Value Reference Range Interpretation Comments POC-GLUCOSE METER 165 mg/dL 70-110 H TESTED AT [facility] 6720 (BEAKER) (test code = [place] 1538) [address] [id number] 16:51:00 Test Item Value Reference Range Interpretation Comments PROTIME (KISHAN) (test code = 17.9 seconds 11.7-14.7 H 759) INR (KISHAN) (test code = 370) 1.5 <=5.9 PARTIAL THROMBOPLASTIN TIME 23.0 seconds 22.5-36.0 (KISHAN) (test code = 760) RECOMMENDED COUMADIN/WARFARIN INR THERAPY RANGESSTANDARD DOSE: 2.0 - 3.0 Includes: PROPHYLAXIS forvenous thrombosis, systemic embolization; TREATMENT for venous thrombosis and/or pulmonary embolus.HIGH RISK: Target INR is 2.5-3.5 for patients with mechanical heart valves.POCT-GLUCOSE [id number] 16:36:00 Test Item Value Reference Range Interpretation Comments POC-GLUCOSE METER 222 mg/dL 70-110 H TESTED AT [facility] 6720 (KISHAN) (test code = [place] 1538) [address]
--- NOTE | 2021-06-02 11:03 | ER ---
Nurse's Notes [facility] Name: Steve Lopez Jr Age: 80 yrs Sex: Male : 1940 Arrival Date: 06/02/2021 Time: 10:29 Bed 8 Private MD: Sebastian Roth T Diagnosis: Weakness;Hypotension, unspecified;End stage renal disease-on HD T,TH,SAT;Type 1 diabetes mellitus with hyperglycemia Presentation: 06/02 10:32 Chief complaint: Patient states: Low BP for 2 days. Feels weak today, has dialysis ll1 today. No fever. Coronavirus screen: Client denies travel out of the [place] in the last 14 days. At this time, the client does not indicate any symptoms associated with coronavirus-19. Ebola Screen: Patient denies travel to an Ebola-affected area in the 21 days before illness onset. No symptoms or risks identified at this time. Initial Sepsis Screen: Does the patient meet any 2 criteria? HR > 90 bpm. No. Patient's initial sepsis screen is negative. Does the patient have a suspected source of infection? No. Patient's initial sepsis screen is negative. Onset of symptoms was June 01, 2021. 10:32 Method Of Arrival: EMS: [facility] ll1 10:32 Acuity: NATHANIEL 3 ll1 10:39 Chief complaint: EMS states: BP 70/40 initially. IV fluids given, BP went to 91/54, ll1 Other vitals stable. No N/V/D. No fever or cough. Risk Assessment: Do you want to hurt yourself or someone else? Patient reports no desire to harm self or others. Historical: - Allergies: 10:30 No Known Allergies; ll1 - PMHx: 10:30 Diabetes - IDDM; Glaucoma; heart attack; Hypertension; kidney disease; Prostate Cancer; ll1 - Immunization history:: Flu vaccine is up to date. - Social history:: Smoking status: Patient denies any tobacco usage or history of. - Family history:: not pertinent. Screenin:39 Abuse screen: Denies threats or abuse. Nutritional screening: No deficits noted. ll1 Tuberculosis screening: No symptoms or risk factors identified. 11:54 Fall Risk Fall in past 12 months (25 points). Secondary diagnosis (15 points) impaired ll1 mobility, IV access (20 points). Ambulatory Aid- Crutches/Cane/Walker (15 pts). Gait- Weak (10 pts.). Total Ortiz Fall Scale indicates High Risk Score (45 or more points). Fall prevention measures have been instituted. Side Rails Up X 2 Placed Close to Nursing Station Frequent Obs/Assessments Occuring Family Present and informed to notify staff if the need to leave the bedside As available patient and family educated on Fall Prevention Program and Strategies. Assessment: 10:35 General: Appears in no apparent distress. Behavior is calm, cooperative, appropriate ll1 for age. Pain: Denies pain. 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 Full function Speech is normal, Facial symmetry appears normal, Reports weakness Denies dizziness. Cardiovascular: Reports fatigue, weakness and low BP Heart tones S1 S2 Capillary refill < 3 seconds Clubbing of nail beds is absent JVD is absent Patient's skin is warm and dry. Respiratory: No deficits noted. GI: No deficits noted. Parent/caregiver reports the patient having not eating or drinking that well. 11:30 Reassessment: No changes from previously documented assessment. Patient and/or family ll1 updated on plan of care and expected duration. Pain level reassessed. 12:30 Reassessment: No changes from previously documented assessment. Patient and/or family ll1 updated on plan of care and expected duration. Pain level reassessed. Patient is alert, oriented x 3, equal unlabored respirations, skin warm/dry/pink. 13:30 Reassessment: No changes from previously documented assessment. Patient and/or family ll1 updated on plan of care and expected duration. Pain level reassessed. 14:30 Reassessment: No changes from previously documented assessment. Patient and/or family ll1 updated on plan of care and expected duration. Pain level reassessed. 15:30 Reassessment: No changes from previously documented assessment. Patient and/or family ll1 updated on plan of care and expected duration. Pain level reassessed. Patient is alert, oriented x 3, equal unlabored respirations, skin warm/dry/pink. 16:27 Reassessment: No changes from previously documented assessment. Patient and/or family ll1 updated on plan of care and expected duration. Pain level reassessed. Vital Signs: 10:39 BP 96 / 51; Pulse 64; Resp 17; Temp 97.5; Pulse Ox 96% on R/A; Pain 0/10; ll1 11:53 BP 98 / 51; Pulse 60; Resp 16; Pulse Ox 97% on R/A; Pain 0/10; ll1 12:30 BP 113 / 53; Pulse 58; Resp 13; Pulse Ox 97% ; sv 13:52 BP 112 / 50; Pulse 60; ll1 14:30 BP 90 / 41; Pulse 62; Resp 17; Pulse Ox 99% ; sv 15:09 BP 78 / 53; Pulse 65; Resp 19; ll1 15:36 BP 87 / 47; Pulse 57; Resp 14; ll1 16:14 BP 83 / 46; Pulse 72; Resp 16; Pulse Ox 99% on R/A; Pain 0/10; ll1 16:48 BP 84 / 47; Pulse 60; ll1 ED Course: 10:29 Patient arrived in ED. ll1 10:30 Arm band placed on Patient placed in an exam room, on a stretcher. ll1 10:33 Juno Burks MD is Attending Physician. leah 10:33 Triage completed. ll1 10:38 Devonte Sadler RN is Primary Nurse. ll1 10:38 Maintain EMS IV. Dressing intact. Good blood return noted. Site clean \T\ dry. Gauge \T\ ll 1 site: 20 R AC. 10:41 Patient has correct armband on for positive identification. Bed in low position. Call ll1 light in reach. Side rails up X2. Pulse ox on. NIBP on. 10:57 Sebastian Roth MD is Private Physician. ds1 11:01 Joe Wilson DO is Hospitalizing Provider. leah 11:26 XRAY Chest (1 view) In Process Unspecified. EDMS 16:25 No provider procedures requiring assistance completed. Patient admitted, IV remains in ll1 place. Administered Medications: 11:07 Drug: NS 0.9% 1000 ml Route: IV; Rate: 75 ml/hr; Site: right antecubital; ll1 16:14 Follow up: Response: No adverse reaction; IV Status: Completed infusion; IV Intake: ll1 500ml 11:07 Drug: NS 0.9% 500 ml Route: IV; Rate: bolus; Site: right antecubital; ll1 11:43 Follow up: Response: No adverse reaction; IV Status: Completed infusion; IV Intake: ll1 500ml 11:43 Drug: Rocephin (cefTRIAXone) 1 grams Route: IV; Rate: per protocol; Site: right ll1 antecubital; 15:25 Follow up: Response: No adverse reaction; IV Status: Completed infusion; IV Intake: [id number] 15:27 Drug: NS 0.9% 250 ml Route: IV; Rate: bolus; Site: right antecubital; ll1 16:13 Follow up: Response: No adverse reaction; IV Status: Completed infusion; IV Intake: ll1 250ml 16:13 Drug: midodrine 5 mg Route: PO; ll1 16:48 Follow up: BP 84 / 47; Pulse 60 bpm ll1 Intake: 11:43 IV: 500ml; Total: 500ml. ll1 15:25 IV: 10ml; Total: 510ml. ll1 16:13 IV: 250ml; Total: 760ml. ll1 16:14 IV: 500ml; Total: 1260ml. 1 Outcome: 11:03 Decision to Hospitalize by Provider. leah 16:25 Admitted to Med/surg accompanied by tech, room 205, with chart, Report called to Susan Tafoya RN on 2nd. 16:25 Condition: stable 16:25 Instructed on the need for admit. 16:48 Patient left the ED. 1 Signatures: Dispatcher [employer] Alba Conte, Juno Valencia RN, MD MD cha Sanford, Demi dsDevonte Mccarty RN RN ll1
--- NOTE | 2021-06-02 11:03 | EDPHYS ---
Physician Documentation [facility] Name: Steve Lopez Jr Age: 80 yrs Sex: Male : 1940 Arrival Date: 06/02/2021 Time: 10:29 Bed 8 Private MD: Sebastian Roth T ED Physician Juno Burks HPI: 06/02 10:58 This 80 yrs old Black Male presents to ER via EMS with complaints of Low Blood leah Pressure, Weakness. 10:58 The patient presents to the emergency department with weakness of the. Onset: The leah symptoms/episode began/occurred just prior to arrival, this morning. Associated signs and symptoms: Pertinent positives: near-syncope, weakness. Severity of symptoms: At their worst the symptoms were mild in the emergency department the symptoms are unchanged. Patient's baseline: Neuro: alert and fully oriented. The patient has not experienced similar symptoms in the past. Historical: - Allergies: 10:30 No Known Allergies; ll1 - PMHx: 10:30 Diabetes - IDDM; Glaucoma; heart attack; Hypertension; kidney disease; Prostate Cancer; ll1 - Immunization history:: Flu vaccine is up to date. - Social history:: Smoking status: Patient denies any tobacco usage or history of. - Family history:: not pertinent. ROS: 10:58 Constitutional: Negative for fever, chills, and weight loss, Eyes: Negative for injury, leah pain, redness, and discharge, ENT: Negative for injury, pain, and discharge, Neck: Negative for injury, pain, and swelling, Cardiovascular: Negative for chest pain, palpitations, and edema, Respiratory: Negative for shortness of breath, cough, wheezing, and pleuritic chest pain, Abdomen/GI: Negative for abdominal pain, nausea, vomiting, diarrhea, and constipation, Back: Negative for injury and pain, : Negative for injury, bleeding, discharge, and swelling, MS/Extremity: Negative for injury and deformity, Skin: Negative for injury, rash, and discoloration, Psych: Negative for depression, anxiety, suicide ideation, homicidal ideation, and hallucinations, Allergy/Immunology: Negative for hives, rash, and allergies, Endocrine: Negative for neck swelling, polydipsia, polyuria, polyphagia, and marked weight changes, Hematologic/Lymphatic: Negative for swollen nodes, abnormal bleeding, and unusual bruising. 10:58 Neuro: Positive for weakness. Exam: 10:58 Constitutional: This is a well developed, well nourished patient who is awake, alert, leah and in no acute distress. Head/Face: Normocephalic, atraumatic. Eyes: Pupils equal round and reactive to light, extra-ocular motions intact. Lids and lashes normal. Conjunctiva and sclera are non-icteric and not injected. Cornea within normal limits. Periorbital areas with no swelling, redness, or edema. ENT: Nares patent. No nasal discharge, no septal abnormalities noted. Tympanic membranes are normal and external auditory canals are clear. Oropharynx with no redness, swelling, or masses, exudates, or evidence of obstruction, uvula midline. Mucous membranes moist. Neck: Trachea midline, no thyromegaly or masses palpated, and no cervical lymphadenopathy. Supple, full range of motion without nuchal rigidity, or vertebral point tenderness. No Meningismus. Chest/axilla: Normal chest wall appearance and motion. Nontender with no deformity. No lesions are appreciated. Cardiovascular: Regular rate and rhythm with a normal S1 and S2. No gallops, murmurs, or rubs. Normal PMI, no JVD. No pulse deficits. Respiratory: Lungs have equal breath sounds bilaterally, clear to auscultation and percussion. No rales, rhonchi or wheezes noted. No increased work of breathing, no retractions or nasal flaring. Abdomen/GI: Soft, non-tender, with normal bowel sounds. No distension or tympany. No guarding or rebound. No evidence of tenderness throughout. Back: No spinal tenderness. No costovertebral tenderness. Full range of motion. Male : Normal genitalia with no discharge or lesions. Skin: Warm, dry with normal turgor. Normal color with no rashes, no lesions, and no evidence of cellulitis. MS/ Extremity: Pulses equal, no cyanosis. Neurovascular intact. Full, normal range of motion. Neuro: Awake and alert, GCS 15, oriented to person, place, time, and situation. Cranial nerves II-XII grossly intact. Motor strength 5/5 in all extremities. Sensory grossly intact. Cerebellar exam normal. Normal gait. Psych: Awake, alert, with orientation to person, place and time. Behavior, mood, and affect are within normal limits. 11:28 ECG was reviewed by the Attending Physician. [facility] Vital Signs: 10:39 BP 96 / 51; Pulse 64; Resp 17; Temp 97.5; Pulse Ox 96% on R/A; Pain 0/10; ll1 11:53 BP 98 / 51; Pulse 60; Resp 16; Pulse Ox 97% on R/A; Pain 0/10; ll1 12:30 BP 113 / 53; Pulse 58; Resp 13; Pulse Ox 97% ; sv 13:52 BP 112 / 50; Pulse 60; ll1 14:30 BP 90 / 41; Pulse 62; Resp 17; Pulse Ox 99% ; sv 15:09 BP 78 / 53; Pulse 65; Resp 19; ll1 15:36 BP 87 / 47; Pulse 57; Resp 14; ll1 16:14 BP 83 / 46; Pulse 72; Resp 16; Pulse Ox 99% on R/A; Pain 0/10; ll1 16:48 BP 84 / 47; Pulse 60; ll1 MDM: 10:33 Patient medically screened. [facility] 11:00 Data reviewed: vital signs, nurses notes, lab test result(s), EKG, radiologic studies, leah plain films. Data interpreted: refinisher: rate is 64 beats/min, rhythm is regular, Pulse oximetry: on room air is 96 %. Test interpretation: by ED physician or midlevel provider: ECG, plain radiologic studies. Counseling: I had a detailed discussion with the patient and/or guardian regarding: the historical points, exam findings, and any diagnostic results supporting the discharge/admit diagnosis, lab results, radiology results. 06/02 10:48 Order name: Basic Metabolic Panel [facility] 06/02 10:48 Order name: CBC with Diff [facility] 06/02 10:48 Order name: LFT's [facility] 06/02 10:48 Order name: Magnesium [facility] 06/02 10:48 Order name: NT PRO-BNP [facility] 06/02 10:48 Order name: PT-INR; Complete Time: 13:35 [facility] 06/02 10:48 Order name: Troponin (emerg Dept Use Only) [facility] 06/02 10:48 Order name: Blood Culture Adult (2) [facility] 06/02 10:48 Order name: Lactate [facility] 06/02 10:48 Order name: Basic Metabolic Panel [facility] 06/02 10:48 Order name: CBC with Automated Diff; Complete Time: 15:58 [facility] 06/02 10:48 Order name: Liver (Hepatic) Function [facility] 06/02 13:59 Order name: SARS-COV-2 RT PCR; Complete Time: 15:58 [facility] 06/02 10:48 Order name: XRAY Chest (1 view); Complete Time: 12:06 [facility] 06/02 10:48 Order name: EKG; Complete Time: 10:49 [facility] 06/02 10:48 Order name: Cardiac monitoring; Complete Time: 11: [facility] 06/02 10:48 Order name: EKG - Nurse/Tech; Complete Time: 11:21 [facility] 06/02 10:48 Order name: IV Saline Lock; Complete Time: 10:52 [facility] 06/02 10:48 Order name: Labs collected and sent; Complete Time: 10:52 [facility] 06/02 10:48 Order name: O2 Per Protocol; Complete Time: 10:52 [facility] 06/02 10:48 Order name: O2 Sat Monitoring; Complete Time: 10:52 [facility] 06/02 13:06 Order name: Social Service Consult [facility] 06/02 14:50 Order name: CBC Smear Scan; Complete Time: 15:58 EDAL EC:28 Rate is 66 beats/min. Rhythm is regular. QRS [place] is Normal. CT interval is normal. QRS leah interval is normal. QT interval is normal. No Q waves. T waves are Normal. No ST changes noted. Clinical impression: Abnormal EKG without significant change and No evidence of ischemia. Interpreted by me. Reviewed by me. Administered Medications: 11:07 Drug: NS 0.9% 1000 ml Route: IV; Rate: 75 ml/hr; Site: right antecubital; [facility] 16:14 Follow up: Response: No adverse reaction; IV Status: Completed infusion; IV Intake: ll1 500ml 11:07 Drug: NS 0.9% 500 ml Route: IV; Rate: bolus; Site: right antecubital; 1 11:43 Follow up: Response: No adverse reaction; IV Status: Completed infusion; IV Intake: ll1 500ml 11:43 Drug: Rocephin (cefTRIAXone) 1 grams Route: IV; Rate: per protocol; Site: right [facility] antecubital; 15:25 Follow up: Response: No adverse reaction; IV Status: Completed infusion; IV Intake: [id number] 15:27 Drug: NS 0.9% 250 ml Route: IV; Rate: bolus; Site: right antecubital; 1 16:13 Follow up: Response: No adverse reaction; IV Status: Completed infusion; IV Intake: ll1 250ml 16:13 Drug: midodrine 5 mg Route: PO; ll1 16:48 Follow up: BP 84 / 47; Pulse 60 bpm ll1 Disposition Summary: 06/02/21 11:03 Hospitalization Ordered Hospitalization Status: Inpatient Admission leah Provider: Joe Wilson cha Location: Telemetry/MedSur (Inpatient) leah Condition: Fair leah Problem: new leah Symptoms: have improved leah Bed/Room Type: Standard leah Room Assignment: 205(06/02/21 15:39) french Diagnosis - Weakness leah - Hypotension, unspecified leah - End stage renal disease - on HD T,,SUN leah - Type 1 diabetes mellitus with hyperglycemia leha Forms: - Medication Reconciliation Form leah - SBAR form leah Signatures: Dispatcher [employer] EDJuno Nath MD MD cha Aguilar, Jose RN RN ja1 Devonte Sadler RN RN [facility] Corrections: (The following items were deleted from the chart) 12:49 10:49 CORONAVIRUS+[id number] ordered. EDAL EDMS 15:39 11:03 leah márquez
[2021-06-02] MEDS ORDERED: NA CHLORIDE 0.9% 1,000 ML ONE (11:16)
--- NOTE | 2021-06-02 11:42 | RAD REPORT ---
EXAM DESCRIPTION: RAD - Chest Single View - 06/02/2021 11:26 am CLINICAL HISTORY: COUGH COMPARISON: Abdomen Acute Series dated 10/12/2020; Chest Single View dated 10/11/2020; Chest Single V iew dated 09/02/2020; Chest Single View dated 11/11/2019 FINDINGS: No evidence of edema or pneumonia. Cardiomegaly.No acute osseous abnormality. No significa nt pleural effusions or pneumothorax. IMPRESSION: No acute cardiopulmonary disease.
[2021-06-02] MEDS ORDERED: CEFTRIAXONE/SWI 1gm 1 GM/10 ML SYR ONE (11:57)
--- NOTE | 2021-06-02 13:01 | P.HP ---
Certification for Inpatient Patient admitted to: Observation With expected LOS: <2 Midnights Patient will require the following post-hospital care: Home Health Services Practitioner: I am a practitioner with admitting privileges, knowledge of patient current condition, hospital course, and medical plan of care. Services: Services provided to patient in accordance with Admission requirements found in Title 42 Section 412.3 of the Code of Federal Regulations Patient History Date of Service: 06/02/21 Primary Care Provider: Dr. Roth; Nephrology-Dr. Mercedes Reason for admission: Fatigue, low blood pressure History of Present Illness: 80-year-old -[place] male with history of end-stage renal disease on hemodialysis, hypertension, diabetes mellitus type 2, history of CVA, PVD, GERD, lactose intolerance. Patient was brought in by family. They have noted that blood pressures have been running low and high. Patient goes to dialysis every Sunday, Sunday and Sunday. Medications had to be held at times. He does take blood pressure medication. He denies any chest pain, shortness of breath. There have been periods of dehydration as well as the patient has chronic diarrhea. No recent antibiotic use. He also is depressed. His recently . He has had poor appetite. He was brought in for further evaluation. Blood pressures stable. Blood pressure around 95-100 systolic. Lab pending at this time. Chest x-ray unremarkable. Patient admitted for further evaluation and treatment. Allergies No Known Allergies Allergy (Verified 10/11/20 20:18) Home medications list reviewed: Yes Home Medications: Atorvastatin Calcium [Lipitor*] 10 mg PO BEDTIME 10/12/20 Clopidogrel Bisulfate [Plavix*] 75 mg PO DAILY 10/12/20 Doxazosin [Cardura*] 2 mg PO BID 10/12/20 Doxycycline Hyclate [Vibramycin] 100 mg PO BID 10/12/20 Fluticasone/Umeclidin/Vilanter [Trelegy Ellipta 100-62.5-25] 1 puff IH DAILY 10/12/20 Hydralazine HCl [Apresoline] 50 mg PO TID 10/12/20 Insulin Degludec [Tresiba Flextouch U-200] 30 units SQ DAILY 10/12/20 Lactulose [Enulose] 10 gm PO DAILY 10/12/20 Levofloxacin [Levaquin] 500 mg PO Q48H 10/12/20 Lidocaine/Prilocaine 30 Gm Cre 1 robin TOP T,TH,S 10/12/20 cloNIDine HCL [Catapres] 0.3 mg PO BID 10/12/20 - Past Medical/Surgical History Diabetic: No -: Diabetes mellitus type 2 -: Hypertension -: History of prostate cancer with prostatectomy -: Chronic renal disease, multi cystic kidney disease -: CHF -: CAD -: PVD -: GERD -: History of CVA -: Lactose intolerance -: Prostate surgery about 20 years ago -: AV fistula Psychosocial/ Personal History: Patient lives with daughter. He recently lost his . - Family History Father -: Heart disease, Hypertension Mother -: Heart disease - Social History Smoking Status: Former smoker Alcohol use: No CD- Drugs: No Caffeine use: Yes Place of Residence: Home Review of Systems General: Weakness, Malaise, As per HPI Eyes: Unremarkable ENT: Unremarkable Respiratory: Unremarkable Cardiovascular: Unremarkable Gastrointestinal: Diarrhea, As per HPI Genitourinary: Unremarkable Musculoskeletal: Unremarkable Integumentary: Unremarkable Neurological: Unremarkable Lymphatics: Unremarkable Assessment and Plan - Plan Chest x-ray: Unremarkable Physical Exam: GENERAL: The patient is a well-developed, well-nourished, in no apparent distress. Alert and oriented x3. Patient appears dehydrated. VITAL SIGNS: Reviewed HEENT: Dry mucous membranes noted. NECK: Supple. No carotid bruits. No lymphadenopathy or thyromegaly. LUNGS: Clear to auscultation. No crackles or wheezes are heard. HEART: Regular rate and rhythm, no appreciable gallops, rubs, murmurs or extra heart sounds ABDOMEN: Soft, nontender, and nondistended. Positive bowel sounds. No hepatosplenomegaly was noted. EXTREMITIES: Without any cyanosis, clubbing, rash, lesions or peripheral edema. NEUROLOGIC: The patient is oriented to person, place and time. Strength and sensation are grossly intact. Face is symmetric. Muscle wasting. SKIN: Normal color, turgor and temperature. No ulcerations or rashes noted. Impression: Fatigue secondary to hypotension with history of hypertension End-stage renal disease on hemodialysis Diabetes mellitus type 2 History of CVA GERD PVD Chronic diarrhea with lactose intolerance Depression History of prostate cancer Plan: Fatigue secondary to hypotension with history of hypertension: Patient will be admitted for further evaluation and treatment. Will monitor telemetry and cardiac enzymes. Suspect hypotension related to poor oral intake, chronic diarrhea and hypertensive medication. Will discontinue blood pressure medication at this time. Continue IV fluids. Will monitor and follow electrolytes closely. Will obtain stool samples for further evaluation including C. difficile. Patient not on recent antibiotic therapy. Patient has had poor oral intake. Will have dietary address daily needs. Patient with lactose intolerance. Await recommendation. Patient will continue with dialysis. Nephrology consulted to help assist. While physical therapy and Occupational Therapy assess ambulation. Patient may require home health at discharge. Anticipate improvement over the next 24 hours. End-stage renal disease on hemodialysis: Nephrology consulted to further evaluate and treat. Continue dialysis every Sunday, Sunday and Sunday. Diabetes mellitus type 2: Obtain home medication. Will provide sliding scale. History of CVA: Restart home medication. GERD: We will provide Pepcid. PVD: Continue home medication Chronic diarrhea with lactose intolerance: Send stool for analysis. We will try to obtain more information. Patient lactose intolerant. Dietary to address daily needs. We will have wound care evaluate his buttocks region. Patient may have ulcer. Depression: Continue with medication History of prostate cancer: Overall stable Code Status: Full Code DVT prophylaxis: Heparin Advanced Care Planning-30 minutes: Plan of care for the patient's discharge was discussed in detail with the patient and family. Discharge Plan: Home Plan to discharge in: 48 Hours - Advance Directives Does patient have a Living Will: Yes Does patient have a Durable POA for Healthcare: Yes - Code Status/Comfort Care Code Status Assessed: Yes (Patient is full code.) Time Spent Managing Pts Care (In Minutes): 55
[2021-06-02 13:18] LABS: Protime INR 1.03
[2021-06-02 13:26] LABS: Absolute Lymphocytes (CBC) 0.4 K/uL (0.7-4.9); Basophils % 0.3 % (0-1.3); Hematocrit 34.7 % (39.6-49.0); Lymphocytes % 4.3 % (15.3-44.8); MPV 8.3 fL (7.6-11.3); RBC Red Blood Cell Count 4.47 M/uL (4.33-5.43)
[2021-06-02 14:49] LABS: Blood Morphology Comment NOT SEEN (NOT SEEN); Platelet Estimate ADEQ; White Blood Cell Scan OK (OK)
[2021-06-02] MEDS ORDERED: NA CHLORIDE 0.9% 250 ML ONE (15:41)
[2021-06-02] MEDS ORDERED: MIDODRINE HCL 5 MG TABLET PO SCH ×2 (16:00→21:00)
[2021-06-02] MEDS: INSULIN -REGULAR HUMAN 50 UNIT/0.5 ML ML SQ SCH ×2 (17:08→20:46)
[2021-06-02] MEDS ORDERED: NA CHLORIDE 0.9% 1,000 ML IV SCH (17:08)
[2021-06-02] MEDS ORDERED: ACETAMINOPHEN 500 MG TAB PO PRN (17:08)
[2021-06-02 17:47] VITALS: BMI 20.2
--- NOTE | 2021-06-02 19:27 | P.CNS ---
Date of Consult: 06/02/21 Requesting Physician: Joe Wilson Primary Care Provider: Dr. Roth; Nephrology-Dr. Mercedes Chief Complaint: Fatigue, low blood pressure History of Present Illness: 80M w/ PMHx of ESRD on HD TTS, Htn, DM2, hx of CVA, PVD, & GERD who p/w hypotension. Hereports having intermittent diarrhea for the past month together with some nausea and vomiting. He is noted to be hypotensive today. he reports having lactose intolerance. He denies fever or chills. lactic acid is elevated. Allergies No Known Allergies Allergy (Verified 10/11/20 20:18) Home Medications: Atorvastatin Calcium [Lipitor*] 10 mg PO BEDTIME 10/12/20 Hydralazine HCl [Apresoline] 50 mg PO TID 10/12/20 cloNIDine HCL [Catapres] 0.3 mg PO Q8HR 10/12/20 Lisinopril [Zestril] 20 mg PO DAILY 06/02/21 Sertraline [Zoloft*] 25 mg PO DAILY 06/02/21 - Past Medical/Surgical History Diabetic: Yes -: Diabetes mellitus type 2 -: Hypertension -: History of prostate cancer with prostatectomy -: Chronic renal disease, multi cystic kidney disease -: CHF -: CAD -: PVD -: GERD -: History of CVA -: Lactose intolerance -: Prostate surgery about 20 years ago -: AV fistula Psychosocial/ Personal History: Patient lives with daughter. He recently lost h is . - Family History Father Medical History: Heart disease, Hypertension Mother Medical History: Heart disease - Social History Smoking Status: Unknown if ever smoked Alcohol use: No CD- Drugs: No Caffeine use: Yes Place of Residence: Home Review of Systems General: Weakness Eyes: Unremarkable ENT: As per HPI Respiratory: Unremarkable Cardiovascular: Unremarkable Gastrointestinal: Nausea, Vomiting, Diarrhea Genitourinary: Unremarkable Musculoskeletal: Atrophy Integumentary: Unremarkable Neurological: Weakness Lymphatics: Unremarkable Physical Examination Temp Pulse Resp BP Pulse Ox 97.1 F 57 16 113/56 L 99 06/02/21 17:08 06/02/21 17:08 06/02/21 17:08 06/02/21 17:08 06/02/21 17:08 General: Other (appears frail) HEENT: Atraumatic, Normocephalic Neck: Supple, JVD not distended Respiratory: Diminished Cardiovascular: No edema, No rubs, No murmurs Gastrointestinal: Soft and benign, Non-distended Musculoskeletal: No clubbing, Other (has AV fistula left forearm) Integumentary: No warmth Neurological: Normal speech, Normal tone Lymphatics: No axilla or inguinal lymphadenopathy Urinary: Other (no bladder distention) External genitalia: Deferred Rectal: Deferred Laboratory Data (last 24 hrs) 06/02/21 11:00: PT 11.8, INR 1.03 06/02/21 11:00: WBC 9.30, Hgb 11.2 L, Hct 34.7 L, Plt Count 219 Conclusions/Impression: # ESRD on HD TTS at [facility] history of prostate cancer No acute indication for HD today HD tomorrow then Sat HD access: LFA AVF EDW 73 kgs Nephro-Sukumar by mouth daily Renal and DM diet Monitor renal panel # Hypotension likely from sepsis Lactate elevated On abx Cont midodrine 5 mg po tid Hold anti-Htn meds IV fluid prn to maintain MAP > 65 F/u cultures & stool studies Check urinalysis # Chronic diarrhea history of lactose intolerance F/u stool c diff testing & GI PCR # Anemia Monitor H&H at goal Monitor # Renal osteodystrophy Monitor serum calcium and phosphorus # DM 2 Management per primary team # Debility, Hx of CVA PT/OT
[2021-06-02] MEDS: HEPARIN 5000 UNIT/ML 1 ML VIAL SQ SCH (20:45)
[2021-06-02 21:52] LABS: CKMB Creatine Kinase MB 2.1 ng/mL (1.0-3.6); Troponin I 0.03 ng/mL (0.0-0.045)
[2021-06-03] MEDS ORDERED: D50W 25 GM/50 ML SYRINGE IV ONE (00:41)
[2021-06-03] MEDS: D5 0.45 NS 1,000 ML IV SCH ×2 (00:45→21:00)
[2021-06-03 01:31] LABS: CKMB Creatine Kinase MB 2.2 ng/mL (1.0-3.6); Troponin I 0.03 ng/mL (0.0-0.045)
--- NOTE | 2021-06-03 05:54 | P.PN ---
Subjective Date of Service: 06/03/21 Primary Care Provider: Dr. Roth; Nephrology-Dr. Mercedes Chief Complaint: Fatigue, low blood pressure He denies having loose stools today. Physical Examination - Vital Signs Temperature: 97.1 F Blood Pressure: 91/43 Pulse: 55 Respirations: 18 Pulse Ox (%): 98 - Physical Exam General: Other (frail looking) HEENT: Atraumatic, Normocephalic Neck: Supple, JVD not distended Respiratory: Normal air movement Cardiovascular: No rubs, No murmurs Gastrointestinal: Soft and benign Musculoskeletal: No swelling - Studies Laboratory Data (last 24 hrs) 06/02/21 11:00: PT 11.8, INR 1.03 06/02/21 11:00: WBC 9.30, Hgb 11.2 L, Hct 34.7 L, Plt Count 219 Assessment And Plan - Plan # ESRD on HD TTS at [facility] History of prostate cancer Missed HD yesterday HD today HD Sat HD access: LFA AVF EDW 73 kgs Nephro-Sukumar by mouth daily Renal and DM diet Monitor renal panel # Hypotension likely from sepsis Lactate elevated On abx Cont midodrine 5 mg po tid Hold anti-Htn meds IV fluid prn to maintain MAP > 65 F/u cultures, stool studies, urinalysis # Chronic diarrhea History of lactose intolerance F/u stool c diff testing, stool cx, stool GI PCR Lactose free diet If stool tests neg, may do 2 wk trial w/ po flagyl for ? small intestinal bacterial overgrowth (SIBO) Additional trials include: gluten free diet, probiotics by mouth daily, creon po daily, questran po q lunchtime # Anemia Monitor H&H at goal Monitor # Renal osteodystrophy Monitor serum calcium and phosphorus # DM 2 Management per primary team # Debility, Hx of CVA PT/OT
--- NOTE | 2021-06-03 05:54 | P.PN ---
Subjective Date of Service: 06/03/21 Primary Care Provider: Dr. Roth; Nephrology-Dr. Mercedes Chief Complaint: Fatigue, low blood pressure Subjective: Other (Patient reports improvement. No diarrhea noted. Blood pressure still low.) Physical Examination - Vital Signs Temperature: 97.1 F Blood Pressure: 91/43 Pulse: 55 Respirations: 18 Pulse Ox (%): 98 - Studies Laboratory Data (last 24 hrs) 06/02/21 11:00: PT 11.8, INR 1.03 06/02/21 11:00: WBC 9.30, Hgb 11.2 L, Hct 34.7 L, Plt Count 219 Assessment & Plan Discharge Plan: Home Plan to discharge in: 72 Hours Physician Review Additional Text: Covid: Negative Chest x-ray: Unremarkable Physical Exam: GENERAL: The patient is a well-developed, well-nourished, in no apparent distress. Alert and oriented x3. Patient appears dehydrated. VITAL SIGNS: Reviewed HEENT: Dry mucous membranes noted. NECK: Supple. No carotid bruits. No lymphadenopathy or thyromegaly. LUNGS: Clear to auscultation. No crackles or wheezes are heard. HEART: Regular rate and rhythm, no appreciable gallops, rubs, murmurs or extra heart sounds ABDOMEN: Soft, nontender, and nondistended. Positive bowel sounds. No hepatosplenomegaly was noted. EXTREMITIES: Without any cyanosis, clubbing, rash, lesions or peripheral edema. NEUROLOGIC: The patient is oriented to person, place and time. Strength and sensation are grossly intact. Face is symmetric. Muscle wasting. SKIN: Normal color, turgor and temperature. No ulcerations or rashes noted. Impression: Fatigue secondary to hypotension with history of hypertension End-stage renal disease on hemodialysis Diabetes mellitus type 2 History of CVA GERD PVD Chronic diarrhea with lactose intolerance Depression History of prostate cancer Plan: Fatigue secondary to hypotension with history of hypertension: Patient reports improvement. Blood pressure still low. Patient reports no diarrhea. Continue IV fluids. Will increase midodrine to 10 mg 1 pill 3 times a day. Patient to have dialysis today. Suspect hypotension related to poor oral intake, chronic diarrhea and hypertensive medication. All blood pressure medications have been held. This includes hydralazine, clonidine and lisinopril. Will monitor and follow electrolytes closely. Will obtain stool samples for further evaluation including C. difficile. Patient not on recent antibiotic therapy. Patient has had poor oral intake, blood sugar slightly low today. Encourage oral intake. Dietary to assess daily needs. Patient with lactose intolerance. Await further recommendation. Patient will continue with dialysis. Nephrology consulted to help assist. Will discuss with nephrology. Will have physical therapy and Occupational Therapy assess ambulation. Patient may require home health at discharge. Patient not ready to discharge due to low blood pressure and poor oral intake. Anticipate improvement over the next 48 to 72 hours. End-stage renal disease on hemodialysis: Nephrology consulted to further evaluate and treat. Continue dialysis every Sunday, Sunday and Sunday. Diabetes mellitus type 2: Dietary to address daily needs. Sliding scale in place. Will monitor closely. History of CVA: Continue with Lipitor GERD: Continue Pepcid PVD: Continue home medication Chronic diarrhea with lactose intolerance: Patient reports no diarrhea at this time. Send stool for analysis. We will try to obtain more information. Patient lactose intolerant. Dietary to address daily needs. We will have wound care evaluate his buttocks region. Patient may have ulcer. Depression: Continue with medicationZoloft History of prostate cancer: Overall stable Code Status: Full Code DVT prophylaxis: Heparin Advanced Care Planning-30 minutes: Anticipate discharge home with home health and physical therapy. Await recommendations from physical therapy. Time Spent Managing Pts Care (In Minutes): 55
[2021-06-03 07:06] LABS: Absolute Lymphocytes (CBC) 1.1 K/uL (0.7-4.9); Basophils % 0.4 % (0-1.3); Hematocrit 31.5 % (39.6-49.0); Lymphocytes % 15.5 % (15.3-44.8); MPV 7.7 fL (7.6-11.3); RBC Red Blood Cell Count 4.12 M/uL (4.33-5.43)
[2021-06-03] MEDS: INSULIN -REGULAR HUMAN 50 UNIT/0.5 ML ML SQ SCH ×4 (07:30→21:00)
[2021-06-03 07:38] LABS: Albumin 2.7 g/dL (3.4-5.0); Bilirubin Total 0.4 mg/dL (0.2-1.0); Magnesium 2.4 mg/dL (1.8-2.4); Potassium 3.4 mmol/L (3.5-5.1); Protein, Total 5.2 g/dL (6.4-8.2); Thyroid Stimulating Hormone 0.973 uIU/mL (0.360-3.740)
[2021-06-03] MEDS: THIAMINE HCL 100 MG TABLET PO SCH (08:24)
[2021-06-03] MEDS: MIDODRINE HCL 5 MG TABLET PO SCH ×3 (08:24→22:32)
[2021-06-03] MEDS: FOLIC ACID 1 MG TABLET PO SCH (08:24)
[2021-06-03] MEDS: MULTIVITAMINS,THERAPEUT 1 TAB PO SCH (08:25)
[2021-06-03] MEDS: SERTRALINE HCL 50 MG TAB PO SCH (08:25)
[2021-06-03] MEDS: FAMOTIDINE 20 MG TAB PO SCH (08:25)
[2021-06-03] MEDS: HEPARIN 5000 UNIT/ML 1 ML VIAL SQ SCH ×2 (08:26→22:32)
[2021-06-03] MEDS: D50W 25 GM/50 ML SYRINGE IV PRN (09:27)
[2021-06-03 10:55] LABS: Potassium 3.3
[2021-06-03 10:58] LABS: Bilirubin Total 0.7; Protein, Total 5.8
[2021-06-03 10:59] LABS: Albumin 3.2
[2021-06-03 11:00] LABS: Magnesium 2.3
[2021-06-03 11:02] LABS: Troponin (Emerg Dept Use Only) 0.046
[2021-06-03] MEDS: NEPRO SHAKE 237 ML CAN PO SCH (21:00)
[2021-06-03] MEDS: ATORVASTATIN 10 MG TAB PO SCH (22:32)
[2021-06-04] MEDS: D5 0.45 NS 1,000 ML IV SCH (02:26)
[2021-06-04] MEDS: ONDANSETRON 4 MG/2 ML VIAL IV PRN ×2 (02:26→20:46)
[2021-06-04] MEDS ORDERED: MIDODRINE HCL 5 MG TABLET PO SCH (05:57)
--- NOTE | 2021-06-04 05:58 | P.PN ---
Subjective Date of Service: 06/04/21 Primary Care Provider: Dr. Roth; Nephrology-Dr. Mercedes Chief Complaint: Fatigue, low blood pressure Subjective: Other (Patient reports improvement. Some hiccups today. Some nausea as well.) Physical Examination - Vital Signs Temperature: 99.5 F Blood Pressure: 154/68 Pulse: 71 Respirations: 18 Pulse Ox (%): 99 - Studies Laboratory Data (last 24 hrs) 06/03/21 06:44: Sodium 138, Potassium 3.4 L, BUN 48 H, Creatinine 7.54 H*, Glucose 61 L, Magnesium 2.4, Total Bilirubin 0.4, AST 9 L, ALT 10 L, Alkaline Phosphatase 56, Triglycerides 98, Cholesterol 90, HDL Cholesterol 44, Cholesterol/HDL Ratio 2.05 06/03/21 06:44: WBC 6.90 D, Hgb 10.5 L, Hct 31.5 L, Plt Count 162 D 06/02/21 11:00: Sodium 133, Potassium 3.3, BUN 44, Creatinine 7.40, Glucose 85, Magnesium 2.3, Total Bilirubin 0.7, AST 34, ALT 8, Alkaline Phosphatase 59 Assessment & Plan Discharge Plan: Home Plan to discharge in: 48 Hours Physician Review Additional Text: Covid: Negative Chest x-ray: COMPARISON: Abdomen Acute Series dated 10/12/2020; Chest Single View dated 10/11/2020; Chest Single View dated 09/02/2020; Chest Single View dated 11/11/2019 FINDINGS: No evidence of edema or pneumonia. Cardiomegaly.No acute osseous abnormality. No significant pleural effusions or pneumothorax. IMPRESSION: No acute cardiopulmonary disease. Physical Exam: GENERAL: The patient is a well-developed, well-nourished, in no apparent distress. Alert and oriented x3. VITAL SIGNS: Reviewed HEENT: Patient appears better hydrated. NECK: Supple. No carotid bruits. No lymphadenopathy or thyromegaly. LUNGS: Clear to auscultation. No crackles or wheezes are heard. HEART: Regular rate and rhythm, no appreciable gallops, rubs, murmurs or extra heart sounds ABDOMEN: Soft, nontender, and nondistended. Positive bowel sounds. No hepatosple nomegaly was noted. EXTREMITIES: Without any cyanosis, clubbing, rash, lesions or peripheral edema. NEUROLOGIC: The patient is oriented to person, place and time. Strength and sensation are grossly intact. Face is symmetric. Muscle wasting. SKIN: Normal color, turgor and temperature. No ulcerations or rashes noted. Impression: Fatigue secondary to hypotension with history of hypertension End-stage renal disease on hemodialysis Diabetes mellitus type 2 History of CVA GERD PVD Chronic diarrhea with lactose intolerance Depression History of prostate cancer Plan: Fatigue secondary to hypotension with history of hypertension: Patient reports some improvement. No diarrhea since admission. Stool cultures pending. Blood cultures negative. Chest x-ray unremarkable. Blood pressures have significantly improved. Blood pressure is now elevated. Will decrease midodrine to 5 mg 1 pill 3 times a day. Parameters in place to hold if blood pressure systolic greater than 120. Will add back clonidine at 0.1 mg 1 pill 3 times a day. Continue to hold lisinopril and oral hydralazine. Will provide hydralazine IV as needed for elevated blood pressure. Will continue to monitor for hypotension. Discontinue IV fluids. Dietary to evaluate daily needs as patient has had poor oral intake. Encourage oral intake. Physical therapy and Occupational Therapy to evaluate patient. Anticipate continued improvement. Will discuss with nephrology. End-stage renal disease on hemodialysis: Continue with dialysis every Sunday, Sunday and Sunday. Will discuss with nephrology.. Diabetes mellitus type 2: Discontinue IV fluids. Encourage oral intake. Will monitor blood sugars closely off IV fluids. If still with hypoglycemia may need to restart fluids. Dietary recommended to add supplementation. History of CVA: Continue with Lipitor GERD: Continue Pepcid PVD: Continue home medication Chronic diarrhea with lactose intolerance: Patient reports no diarrhea at this time. Stool cultures pending. This includes C. difficile evaluation. No need for antibiotics at this time. Patient with history of lactose intolerance. Depression: Continue with medicationZoloft History of prostate cancer: Overall stable Code Status: Full Code DVT prophylaxis: Heparin Advanced Care Planning-30 minutes: Anticipate discharge home with home health and physical therapy. Await recommendations from physical therapy. Time Spent Managing Pts Care (In Minutes): 55
[2021-06-04 06:19] LABS: Albumin 3.1 g/dL (3.4-5.0); Bilirubin Total 0.5 mg/dL (0.2-1.0); Magnesium 2.2 mg/dL (1.8-2.4); Potassium 3.7 mmol/L (3.5-5.1); Protein, Total 6.4 g/dL (6.4-8.2)
[2021-06-04 06:23] LABS: Absolute Lymphocytes (CBC) 0.8 K/uL (0.7-4.9); Basophils % 0.3 % (0-1.3); Hematocrit 37.8 % (39.6-49.0); Lymphocytes % 9.1 % (15.3-44.8); MPV 8.6 fL (7.6-11.3); RBC Red Blood Cell Count 4.91 M/uL (4.33-5.43)
[2021-06-04] MEDS: INSULIN -REGULAR HUMAN 50 UNIT/0.5 ML ML SQ SCH ×4 (07:30→20:46)
[2021-06-04] MEDS: THIAMINE HCL 100 MG TABLET PO SCH (08:13)
[2021-06-04] MEDS: FOLIC ACID 1 MG TABLET PO SCH (08:13)
[2021-06-04] MEDS: SERTRALINE HCL 50 MG TAB PO SCH (08:13)
[2021-06-04] MEDS: MULTIVITAMINS,THERAPEUT 1 TAB PO SCH (08:13)
[2021-06-04] MEDS: FAMOTIDINE 20 MG TAB PO SCH (08:13)
[2021-06-04] MEDS: HEPARIN 5000 UNIT/ML 1 ML VIAL SQ SCH ×2 (08:14→20:43)
[2021-06-04] MEDS: NEPRO SHAKE 237 ML CAN PO SCH ×2 (08:15→20:46)
[2021-06-04] MEDS: MIDODRINE HCL 5 MG TABLET PO SCH ×3 (09:00→20:48)
[2021-06-04] MEDS: cloNIDine HCL 0.1 MG TAB PO SCH ×3 (10:33→20:43)
[2021-06-04] MEDS: ATORVASTATIN 10 MG TAB PO SCH (20:45)
--- NOTE | 2021-06-04 21:42 | PN ---
Date of Progress Note: 06/04/2021 Chief Complaint: End-stage renal disease, on dialysis. The patient has a history of prostate cancer. DICTATION already done EB/MODL Voice ID: [id number] Report ID: [id number] MTDD
--- NOTE | 2021-06-04 22:00 | PN ---
Date of Progress Note: 06/04/2021 Chief Complaint: End-stage renal disease, on dialysis. Review of Systems: The patient denies fever, chills. Physical Examination: Lungs: Clear to auscultation bilaterally. Heart: S1, S2. Abdomen: Benign. Extremities: No edema. Laboratory Data: Hemoglobin 11.2, platelet count 219, WBC 9.3. Impression And Plan: 1.End-stage renal disease. Continue dialysis 3 times per week. 2.Anemia of chronic kidney disease. Recheck hemoglobin level and transfuse as needed. 3.Hypotension secondary to sepsis. Continue midodrine 5 mg 3 times per day. The patient had previo usly blood pressure medication. Currently, blood pressure medication on hold. 4.Chronic diarrhea and history of lactose intolerance. Continue further management and check C diff testing for possible C diff colitis. The patient may benefit from flagyl. 5.Anemia. Hemoglobin level at target range. Continue to monitor. 6.Renal osteodystrophy. Monitor serum calcium and phosphorus level. 7.Diabetes mellitus. Per primary team. SYLVIA/DEONTE Voice ID: [id number] Report ID: [id number]
[2021-06-05 05:51] LABS: Absolute Lymphocytes (CBC) 0.4 K/uL (0.7-4.9); Basophils % 0.1 % (0-1.3); Hematocrit 36.5 % (39.6-49.0); Lymphocytes % 5.3 % (15.3-44.8); MPV 8.1 fL (7.6-11.3); RBC Red Blood Cell Count 4.73 M/uL (4.33-5.43)
[2021-06-05] MEDS: HYDRALAZINE HCL 20 MG/ML VIAL IV PRN (06:09)
[2021-06-05 06:21] LABS: Magnesium 2.1 mg/dL (1.8-2.4); Potassium 3.9 mmol/L (3.5-5.1)
[2021-06-05] MEDS: INSULIN -REGULAR HUMAN 50 UNIT/0.5 ML ML SQ SCH ×4 (07:30→20:07)
[2021-06-05] MEDS: THIAMINE HCL 100 MG TABLET PO SCH (09:00)
[2021-06-05] MEDS: MIDODRINE HCL 5 MG TABLET PO SCH ×3 (09:00→20:08)
[2021-06-05] MEDS: VITAMIN D 1000 UNIT TAB PO SCH (09:00)
[2021-06-05] MEDS: NEPRO SHAKE 237 ML CAN PO SCH ×3 (09:00→20:07)
[2021-06-05] MEDS: CALCIUM CARBONATE 500 MG TAB PO SCH (10:00)
[2021-06-05] MEDS: MULTIVITAMINS,THERAPEUT 1 TAB PO SCH (10:00)
[2021-06-05] MEDS: FAMOTIDINE 20 MG TAB PO SCH (10:00)
[2021-06-05] MEDS: SERTRALINE HCL 50 MG TAB PO SCH (10:00)
[2021-06-05] MEDS: cloNIDine HCL 0.1 MG TAB PO SCH ×3 (10:00→20:06)
[2021-06-05] MEDS: FOLIC ACID 1 MG TABLET PO SCH (10:00)
[2021-06-05] MEDS: HYDRALAZINE HCL 25 MG TABLET PO SCH ×3 (10:01→20:05)
[2021-06-05] MEDS: HEPARIN 5000 UNIT/ML 1 ML VIAL SQ SCH ×2 (10:01→20:06)
--- NOTE | 2021-06-05 10:41 | P.PN ---
Subjective Date of Service: 06/05/21 Primary Care Provider: Dr. Roth; Nephrology-Dr. Mercedes Chief Complaint: Fatigue, low blood pressure Subjective: Other (Patient improving. Blood pressure stable. Still with poor oral intake. Less nausea today. No significant diarrhea.) Physical Examination - Vital Signs Temperature: 97.4 F Blood Pressure: 141/65 Pulse: 75 Respirations: 18 Pulse Ox (%): 98 Assessment & Plan Discharge Plan: Other (Home with home health versus skilled placement) Plan to discharge in: 24 Hours Physician Review Additional Text: Covid: Negative Chest x-ray: COMPARISON: Abdomen Acute Series dated 10/12/2020; Chest Single View dated 10/11/2020; Chest Single View dated 09/02/2020; Chest Single View dated 11/11/2019 FINDINGS: No evidence of edema or pneumonia. Cardiomegaly.No acute osseous abnormality. No significant pleural effusions or pneumothorax. IMPRESSION: No acute cardiopulmonary disease. Physical Exam: GENERAL: The patient is a well-developed, well-nourished, in no apparent distress. Alert and oriented x3. VITAL SIGNS: Reviewed HEENT: Patient appears better hydrated. NECK: Supple. No carotid bruits. No lymphadenopathy or thyromegaly. LUNGS: Clear to auscultation. No crackles or wheezes are heard. HEART: Regular rate and rhythm, no appreciable gallops, rubs, murmurs or extra heart sounds ABDOMEN: Soft, nontender, and nondistended. Positive bowel sounds. No hepatosplenomegaly was noted. EXTREMITIES: Without any cyanosis, clubbing, rash, lesions or peripheral edema. NEUROLOGIC: The patient is oriented to person, place and time. Strength and sensation are grossly intact. Face is symmetric. Muscle wasting. SKIN: Normal color, turgor and temperature. No ulcerations or rashes noted. Impression: Fatigue secondary to hypotension with history of hypertension End-stage renal disease on hemodialysis Diabetes mellitus type 2 History of CVA GERD PVD Chronic diarrhea with lactose intolerance Depression History of prostate cancer Plan: Fatigue secondary to hypotension with history of hypertension: Patient continues to improve. Blood pressure improved. Still with poor oral intake. Will increase Nepro supplementation to 3 times a day. Encourage oral intake. No diarrhea noted. Stool cultures pending. Blood pressures improved. Parameters in place to hold midodrine if systolic greater than 120. Clonidine restarted but at a lower dose at 0.1 mg 3 times a day. We will add back hydralazine but at a lower dose of 25 mg 1 pill 3 times a day. Parameters will be provided as well. Continue to monitor for hypotension. IV fluids discontinued. Physical therapy and Occupational Therapy to evaluate. Case discussed with patient and family member. Await recommendations by physical therapy tomorrow. Need to consider home health and physical therapy at discharge or skilled placement. I will turn the service over to the hospital team tomorrow. I will go plan of care with him. Will discuss with nephrology. End-stage renal disease on hemodialysis: Continue with dialysis every Sunday, Sunday and Sunday. Will discuss with nephrology.. Diabetes mellitus type 2: Oral intake encouraged. Increase Nepro supplementation 3 times a day. Dietary consult to evaluate daily needs. History of CVA: Continue with Lipitor GERD: Continue Pepcid PVD: Continue home medication Chronic diarrhea with lactose intolerance: Patient reports no diarrhea at this time. Stool cultures pending. This includes C. difficile evaluation. No need for antibiotics at this time. Patient with history of lactose intolerance. Depression: Continue with medicationZoloft History of prostate cancer: Overall stable Code Status: Full Code DVT prophylaxis: Heparin Advanced Care Planning-30 minutes: Need to consider home health with physical therapy at discharge versus skilled placement. Await physical therapy recommendation Time Spent Managing Pts Care (In Minutes): 55
[2021-06-05] MEDS ORDERED: SIMETHICONE 80 MG TAB PO SCH (14:00)
[2021-06-05] MEDS ORDERED: METOCLOPRAMIDE 5 MG TAB PO SCH (14:00)
--- NOTE | 2021-06-05 14:59 | RAD REPORT ---
EXAM DESCRIPTION: RAD - Chest Single View - 06/05/2021 2:31 pm CLINICAL HISTORY: gas/abdominal pain COMPARISON: Chest Single View dated 06/02/2021; Abdomen Acute Series dated 10/12/2020; Chest Single Vi ew dated 10/11/2020; Chest Single View dated 09/02/2020; Abdomen 1 View (KUB) dated 06/05/2021 FINDINGS: No evidence of edema or pneumonia. Cardiomegaly.No acute osseous abnormality. No significa nt pleural effusions or pneumothorax. Relative lucency overlying the right upper quadrant. IMPRESSION: No acute cardiopulmonary disease. Reference contemporaneously performed abdominal radiog raph.
--- NOTE | 2021-06-05 15:02 | RAD REPORT ---
EXAM DESCRIPTION: RAD - Abdomen 1 View (KUB) - 06/05/2021 2:30 pm CLINICAL HISTORY: gas/abdominal pain COMPARISON: Abdomen Pelvis Wo Contrast dated 10/11/2020 FINDINGS: Relative lucency overlying the right upper quadrant. This is not clearly within the bowel. No acute osseous abnormality.Visualized lungs are unremarkable.No abnormal calcifications. IMPRESSION: The bowel gas pattern is nonobstructive. Relative lucency overlying the right upper quad rant may be gas within the colon, however cannot entirely exclude perforation. CT could confirm if cl inically indicated.
--- NOTE | 2021-06-05 17:32 | RAD REPORT ---
EXAM DESCRIPTION: CT - Abdomen Pelvis Wo Contrast - 06/05/2021 5:12 pm CLINICAL HISTORY: Abdominal pain. rule out perf COMPARISON: Abdomen Pelvis Wo Contrast dated 10/11/2020; Abdomen Pelvis Wo Contrast dated 2017; Abdomen Pelvis Wo Contrast dated 10/21/2017; Stone Protocol dated 12/22/2016 TECHNIQUE: CT imaging of the abdomen and pelvis was performed without contrast. Solid organ, bowel a nd vascular assessment is limited due to lack of IV and oral contrast. All CT scans are performed using dose optimization technique as appropriate and may include automated exposure control or mA/KV adjustment according to patient size. FINDINGS: The lower lung landin are clear.Cardiomegaly. Bilateral renal lesions, largest in left kidney measuring 11.7 centimeters. This is consistent with a simple cyst. There are several intermediate attenuation right renal lesions which are likely hemorrh agic or proteinaceous cyst and similar to prior. There is an abnormal morphology of the lower pole th e left kidney which is similar. No hydronephrosis per Prostatectomy with pelvic lymph node dissection . . Diffuse colonic and small bowel dilatation with frothy bowel contents and gas. There is a transit ion the distal transverse colon to nondilated distal transverse and sigmoid colon. The ileocecal valv e is seen in the right lower quadrant. The osseous structures are within normal limits. IMPRESSION: Marked colonic dilatation with transition at the distal transverse colon. This could be secondary to an adynamic ileus however a mechanical small-bowel obstruction from a stricture or mass is difficult to entirely exclude. The colon at the transition has some thickening but this is nonspec ific. Consider nonemergent colonoscopy. No free air identified. Multiple indeterminate renal lesions which are grossly similar. A limited non-contrast examination was performed as detailed.
--- NOTE | 2021-06-05 19:56 | PN ---
Date of Progress Note: 06/05/2021 Chief Complaint: End-stage renal disease. History Of Present Illness: The patient underwent dialysis yesterday. Patient is complaining of some abdominal distention. He is complaining of abdominal gas as well as nausea and vomiting. The patient had a KUB done, which showed right upper quadrant air fluid levels and the patient is undergoing CT scan without contrast to rule out possible perforation. The patient was treated with simethicone as well as Reglan. CT scan showed marked colonic dilatation with transition to distal transverse colon. This could be secondary to dynamic ileus. However, mechanical small bowel obstruction from stricture mass is difficult to exclude. I contacted surgical team as well as I discussed case with Dr. Wilson. Review of Systems: Denies fever, chills. He is complaining of abdominal gas and nausea. Physical Examination: Lungs: Clear to auscultation bilaterally. Heart: S1, S2. Abdomen: Soft, benign. Extremities: No edema. Impression And Plan: 1. End-stage renal disease. Continue dialysis 3 times per week. 2. Anemia of chronic kidney disease. Monitor hemoglobin level. 3. Hypotension, secondary to sepsis. The patient is on midodrine. 4. Chronic diarrhea and history of lactose intolerance. Patient will continue further management for Clostridium difficile test and seeing possible Clostridium difficile colitis. Patient may benefit from flagyl. 5. Renal osteodystrophy. Continue to adjust binders. Currently, patient has some GI symptoms and surgical team is consulted for an evaluation. SYLVIA/DEONTE Voice ID: [id number] Report ID: [id number] ELAINE
[2021-06-05] MEDS: ATORVASTATIN 10 MG TAB PO SCH (20:07)
[2021-06-06] MEDS: HYDRALAZINE HCL 20 MG/ML VIAL IV PRN (04:55)
[2021-06-06 06:44] LABS: Absolute Lymphocytes (CBC) 0.8 K/uL (0.7-4.9); Basophils % 0.4 % (0-1.3); Hematocrit 34.2 % (39.6-49.0); Lymphocytes % 9.4 % (15.3-44.8); MPV 8.2 fL (7.6-11.3)
[2021-06-06 07:17] LABS: Magnesium 2.3 mg/dL (1.8-2.4); Potassium 3.7 mmol/L (3.5-5.1)
[2021-06-06] MEDS: INSULIN -REGULAR HUMAN 50 UNIT/0.5 ML ML SQ SCH ×4 (07:30→21:00)
[2021-06-06] MEDS: NEPRO SHAKE 237 ML CAN PO SCH ×3 (09:00→21:00)
[2021-06-06] MEDS ORDERED: POTASSIUM CL SA 10 MEQ TAB PO ONE (09:00)
[2021-06-06] MEDS: MULTIVITAMINS,THERAPEUT 1 TAB PO SCH (09:45)
[2021-06-06] MEDS: THIAMINE HCL 100 MG TABLET PO SCH (09:46)
[2021-06-06] MEDS: FAMOTIDINE 20 MG TAB PO SCH (09:46)
[2021-06-06] MEDS: VITAMIN D 1000 UNIT TAB PO SCH (09:46)
[2021-06-06] MEDS: MIDODRINE HCL 5 MG TABLET PO SCH ×3 (09:46→21:00)
[2021-06-06] MEDS: SERTRALINE HCL 50 MG TAB PO SCH (09:46)
[2021-06-06] MEDS: CALCIUM CARBONATE 500 MG TAB PO SCH (09:47)
[2021-06-06] MEDS: HYDRALAZINE HCL 25 MG TABLET PO SCH ×3 (09:47→22:05)
[2021-06-06] MEDS: cloNIDine HCL 0.1 MG TAB PO SCH ×3 (09:47→22:04)
[2021-06-06] MEDS: FOLIC ACID 1 MG TABLET PO SCH (09:47)
[2021-06-06] MEDS: HEPARIN 5000 UNIT/ML 1 ML VIAL SQ SCH ×3 (09:47→22:18)
--- NOTE | 2021-06-06 11:32 | CON ---
Date of Consultation: 06/06/2021 Reason For Service: Abdominal distention, possible ileus. History Of Present Illness: This is the case of a 80-year-old patient, comes to us with multiple med ical problems including renal failure on hemodialysis, hypertension, diabetes, CVA, PVD, GERD, found to have abdominal distention. X-ray was done showing distended small bowel, large bowel, and surgica l consult was obtained. Most of the information is obtained from the patient and chart and primary s dottie the patient cannot give any information. Allergies: NONE. Medications: Reviewed including Levaquin, Lipitor, Plavix, doxycycline. Past Medical History: As above. Family History: Hypertension, heart disease. Social History: He does not smoke. He does not drink alcohol. No knowledge of his previous colonos copy. Review of Systems: Unable to be obtained. Physical Examination: General: The patient is awake, alert. Chest: Clear. Abdomen: Softly distended. No peritonitis. Rectal: Deferred. Extremities: Good capillary refill. Laboratory Data: Blood work shows WBC count of 8.9 with hemoglobin of 11.4, bicarb 24, creatinine is 5.70. CAT scan of abdomen and pelvis interpreted by Dr. Sher as colonic dilatation present. Etiolog y of that is unknown. No free air. Assessment: This is a 80-year-old patient with small bowel and large bowel dilatation of unknown mike ology. No previous colonoscopy documented. From the surgical standpoint, I will hold back the diet at least 24 hours until this inflammation goes away. Continue hydration. GI consult. WILLIAM/DEONTE Voice ID: [id number] Report ID: [id number]
[2021-06-06] MEDS ORDERED: WATER FOR INJ,STERILE 10 ML IV SCH (17:00)
[2021-06-06] MEDS: HYDROCORTISONE SUC 100 MG INJ IV SCH (18:33)
[2021-06-06] MEDS: ATORVASTATIN 10 MG TAB PO SCH (22:05)
--- NOTE | 2021-06-06 23:08 | PN ---
Date of Progress Note: 06/06/2021 Chief Complaint: End-stage renal disease. History Of Present Illness: The patient is due dialysis tomorrow. The patient is undergoing physica l therapy. The patient was consulted by surgical team for possible bowel obstruction. KUB was done and was suggestive of perforation. CT scan subsequently was done without contrast. Review of Systems: The patient denies PND or orthopnea. Physical Examination: Lungs: Diminished breath sounds at bases. Heart: S1, S2. Abdomen: Soft, benign. Extremities: No edema. Impression And Plan: 1.End-stage renal disease. Dialysis is scheduled for tomorrow. 2.Anemia of chronic kidney disease. Monitor hemoglobin level. 3.Hypotension secondary to sepsis. Continue midodrine. 4.Chronic diarrhea, history of lactose intolerance. Further workup for Clostridium difficile coliti s per primary team. 5.Renal osteodystrophy. Monitor phosphorus level and adjust treatment. EB/MODL Voice ID: [id number] Report ID: [id number]
[2021-06-07] MEDS: HYDROCORTISONE SUC 100 MG INJ IV SCH ×2 (00:56→08:29)
[2021-06-07] MEDS: HYDRALAZINE HCL 20 MG/ML VIAL IV PRN (01:05)
[2021-06-07 03:55] LABS: Absolute Lymphocytes (CBC) 0.6 K/uL (0.7-4.9); Basophils % 0.2 % (0-1.3); Hematocrit 33.3 % (39.6-49.0); Lymphocytes % 6.8 % (15.3-44.8); MPV 8.1 fL (7.6-11.3); RBC Red Blood Cell Count 4.35 M/uL (4.33-5.43)
[2021-06-07 04:29] LABS: Magnesium 2.4 mg/dL (1.8-2.4); Phosphorus 6.6 mg/dL (2.5-4.9); Potassium 4.3 mmol/L (3.5-5.1)
[2021-06-07 05:02] LABS: Blood Morphology Comment NOTED (NOT SEEN); Burr Cells 3+; Hypochromasia 2+; Ovalocytes 3+; Platelet Estimate ADEQ; Target Cells 1+
[2021-06-07] MEDS: INSULIN -REGULAR HUMAN 50 UNIT/0.5 ML ML SQ SCH ×4 (07:30→21:00)
[2021-06-07] MEDS: THIAMINE HCL 100 MG TABLET PO SCH (08:29)
[2021-06-07] MEDS: FOLIC ACID 1 MG TABLET PO SCH (08:29)
[2021-06-07] MEDS: VITAMIN D 1000 UNIT TAB PO SCH (08:29)
[2021-06-07] MEDS: HYDRALAZINE HCL 25 MG TABLET PO SCH ×4 (08:29→20:42)
[2021-06-07] MEDS: MULTIVITAMINS,THERAPEUT 1 TAB PO SCH (08:29)
[2021-06-07] MEDS: CALCIUM CARBONATE 500 MG TAB PO SCH (08:29)
[2021-06-07] MEDS: FAMOTIDINE 20 MG TAB PO SCH (08:30)
[2021-06-07] MEDS: cloNIDine HCL 0.1 MG TAB PO SCH ×4 (08:30→20:42)
[2021-06-07] MEDS: SERTRALINE HCL 50 MG TAB PO SCH (08:30)
[2021-06-07] MEDS: HEPARIN 5000 UNIT/ML 1 ML VIAL SQ SCH ×2 (08:30→20:42)
[2021-06-07] MEDS: MIDODRINE HCL 5 MG TABLET PO SCH (08:31)
[2021-06-07] MEDS: NEPRO SHAKE 237 ML CAN PO SCH ×3 (08:31→23:09)
--- NOTE | 2021-06-07 09:35 | P.PN ---
Subjective Date of Service: 06/07/21 Primary Care Provider: Dr. Roth; Nephrology-Dr. Mercedes Chief Complaint: Fatigue, low blood pressure today No overnight events BP elevated , will stop midodrine HD today will start on calcitriol Physical exam general: Awake and alert, NAD Neck; Supple, No elevated JVD hear: RRR, normal S1,2 no murmur or rub Chest: CTAB, no rlaes or wheezes Abdomen: Soft , Nt Extremities no edema # ESRD on HD TTS at [facility] History of prostate cancer HD today Renal and DM diet Monitor renal panel # Hypotension likely from sepsis BP elevated now will dc midodrine cont clonidine as needed # Chronic diarrhea improved now History of lactose intolerance F/u stool c diff testing, stool cx, stool GI PCR Lactose free diet # Anemia of chronic disease no need for epogen # Renal osteodystrophy cont caclium will start calcitriol # DM 2 Management per primary team # Debility, Hx of CVA PT/OT Physical Examination - Vital Signs Temperature: 98.0 F Blood Pressure: 177/79 Pulse: 73 Respirations: 18 Pulse Ox (%): 97 Assessment And Plan Physician Review: Patient Assessed, Agree with Above Assessment and Plan
[2021-06-07] MEDS: ATORVASTATIN 10 MG TAB PO SCH (20:42)
[2021-06-08 04:12] LABS: HBsAG Nonreactive (Nonreactive)
--- NOTE | 2021-06-08 06:21 | P.PN ---
Subjective Date of Service: 06/08/21 Primary Care Provider: Dr. Roth; Nephrology-Dr. Mercedes Chief Complaint: Fatigue, low blood pressure No c/o abdominal discomfort today. Physical Examination - Vital Signs Temperature: 97.3 F Blood Pressure: 144/70 Pulse: 67 Respirations: 18 Pulse Ox (%): 96 - Physical Exam General: Other (frail-looking) HEENT: Atraumatic, Normocephalic Neck: Supple, JVD not distended Respiratory: Diminished Cardiovascular: No rubs, No murmurs Gastrointestinal: Soft and benign, Non-distended Musculoskeletal: No clubbing, No swelling Integumentary: No warmth Neurological: Normal tone External genitalia: Other (no bladder distention) - Studies Microbiology Data (last 24 hrs): 06/02/21 10:48 Blood - Blood Aerobic Blood Culture - Final No growth in 5 days. 06/02/21 10:48 Blood - Blood Anaerobic Blood Culture - Final No growth in 5 days. 06/02/21 11:15 Blood - Blood Aerobic Blood Culture - Final No growth in 5 days. 06/02/21 11:15 Blood - Blood Anaerobic Blood Culture - Final No growth in 5 days. Assessment And Plan - Plan # ESRD on HD TTS at [facility] History of prostate cancer No acute indication for HD today Next HD tomorrow HD access: LFA AVF EDW 73 kgs Renal and DM diet Monitor renal panel # Htn BP ok Cont current regimen # Chronic diarrhea Improved History of lactose intolerance F/u stool c diff testing, stool cx, stool GI PCR Lactose free diet # Anemia of chronic disease Monitor H/H # Renal osteodystrophy Monitor Ca & Phos # DM 2 Mngt per primary team # Debility, Hx of CVA PT/OT Physician Review: Patient Assessed, Agree with Above Assessment and Plan
[2021-06-08] MEDS: INSULIN -REGULAR HUMAN 50 UNIT/0.5 ML ML SQ SCH ×4 (07:30→21:00)
[2021-06-08] MEDS: D50W 25 GM/50 ML SYRINGE IV PRN ×3 (07:39→16:30)
[2021-06-08] MEDS: NEPRO SHAKE 237 ML CAN PO SCH (09:00)
[2021-06-08] MEDS: THIAMINE HCL 100 MG TABLET PO SCH (09:18)
[2021-06-08] MEDS: VITAMIN D 1000 UNIT TAB PO SCH (09:19)
[2021-06-08] MEDS: SERTRALINE HCL 50 MG TAB PO SCH (09:19)
[2021-06-08] MEDS: CALCITROL 0.25 MCG CAP PO SCH (09:19)
[2021-06-08] MEDS: FAMOTIDINE 20 MG TAB PO SCH (09:19)
[2021-06-08] MEDS: MULTIVITAMINS,THERAPEUT 1 TAB PO SCH (09:19)
[2021-06-08] MEDS: cloNIDine HCL 0.1 MG TAB PO SCH ×3 (09:19→21:26)
[2021-06-08] MEDS: CALCIUM CARBONATE 500 MG TAB PO SCH (09:20)
[2021-06-08] MEDS: HEPARIN 5000 UNIT/ML 1 ML VIAL SQ SCH ×2 (09:20→21:26)
[2021-06-08] MEDS: HYDRALAZINE HCL 25 MG TABLET PO SCH ×3 (09:20→21:25)
[2021-06-08] MEDS: FOLIC ACID 1 MG TABLET PO SCH (09:20)
[2021-06-08] MEDS ORDERED: CALCIUM GLUC 10% INJ 9.3 MEQ in NA CHLORIDE 0.9% 100 ML IV ONE (10:30)
--- NOTE | 2021-06-08 11:14 | P.PN ---
Subjective Date of Service: 06/06/21 Patient doing well with no new complaints. Patient clinical symptoms are improving. Patient denies any new complaints. Start on clear liquid diet. Clinically patient does not appear to have any GI issues. He did have some diarrhea but this is improved as well. Review of Systems 10-point ROS is otherwise unremarkable Physical Examination - Vital Signs Temperature: 98.5 F Blood Pressure: 163/72 Pulse: 76 Respirations: 16 Pulse Ox (%): 99 - Physical Exam General: Alert, In no apparent distress, Oriented x3 Respiratory: Clear to auscultation bilaterally, Normal air movement Cardiovascular: Regular rate/rhythm, Normal S1 S2, No murmurs Gastrointestinal: Normal bowel sounds, Soft and benign, Non-distended, No tenderness Musculoskeletal: No clubbing, No swelling, No tenderness Neurological: Sensation intact, Cranial nerves 3-12 intact - Studies Microbiology Data (last 24 hrs): 06/02/21 10:48 Blood - Blood Aerobic Blood Culture - Final No growth in 5 days. 06/02/21 10:48 Blood - Blood Anaerobic Blood Culture - Final No growth in 5 days. 06/02/21 11:15 Blood - Blood Aerobic Blood Culture - Final No growth in 5 days. 06/02/21 11:15 Blood - Blood Anaerobic Blood Culture - Final No growth in 5 days. Medications List Reviewed: Yes Assessment & Plan - Problems (Diagnosis) (1) Diarrhea Current Visit: Yes Status: Acute (2) Diastolic heart failure Current Visit: No Status: Acute Qualifiers: Heart failure chronicity: acute on chronic Qualified Code(s): I50.33 - Acute on chronic diastolic (congestive) heart failure (3) ESRD (end stage renal disease) on dialysis Current Visit: No Status: Acute (4) Essential hypertension Current Visit: No Status: Chronic (5) Type 2 diabetes mellitus Current Visit: No Status: Chronic Qualifiers: Diabetes mellitus shelter insulin use: with shelter use Diabetes mellitus complication status: with kidney complications Diabetes mellitus complication detail: with chronic kidney disease Chronic kidney disease stage: on chronic dialysis Qualified Code(s): E11.22 - Type 2 diabetes mellitus with diabetic chronic kidney disease; N18.6 - End stage renal disease; Z79.4 - snf (current) use of insulin; Z99.2 - Dependence on renal dialysis - Plan Patient is clinically doing well. Spoke with General Surgeon at this time they do not want to wright advancing his diet. Keep 1 clear liquids for a day or 2 and see how he does. If he does well then advances diet. Clinically does not appear to have any kind of obstruction with no abdominal distension. His abdomen is really soft. No nausea or vomiting. Will go ahead and start him on a diet and if he tolerates it advanced until full in a day or 2 and then discharge him home. Hemodialysis per Nephrology Discharge Plan: Home Plan to discharge in: Greater than 2 days - Advance Directives Does patient have a Living Will: Yes Does patient have a Durable POA for Healthcare: Yes - Code Status/Comfort Care Code Status Assessed: Yes Code Status: Full Code Physician Review: Patient Assessed, Agree with Above Assessment and Plan Critical Care: No Time Spent Managing PTS Care (In Minutes): 35
--- NOTE | 2021-06-08 11:18 | P.PN ---
Date of Service: 06/07/21 Subjective Patient is feeling better. Abdomen is soft. Continue on liquid diet per General surgery recommendation at this time. Review of Systems 10-point ROS is otherwise unremarkable Physical Examination - Vital Signs Reviewed - Physical Exam General: Alert, In no apparent distress, Oriented x3 Respiratory: Clear to auscultation bilaterally, Normal air movement Cardiovascular: Regular rate/rhythm, Normal S1 S2, No murmurs Gastrointestinal: Normal bowel sounds, Soft and benign, Non-distended, No tenderness Musculoskeletal: No clubbing, No swelling, No tenderness Neurological: Sensation intact, Cranial nerves 3-12 intact Assessment & Plan - Problems (Diagnosis) (1) Diarrhea/rule out small bowel or colonic obstruction Current Visit: Yes Status: Acute (2) Diastolic heart failure Current Visit: No Status: Acute Qualifiers: Heart failure chronicity: acute on chronic Qualified Code(s): I50.33 - Acute on chronic diastolic (congestive) heart failure (3) ESRD (end stage renal disease) on dialysis Current Visit: No Status: Acute (4) Essential hypertension Current Visit: No Status: Chronic (5) Type 2 diabetes mellitus Current Visit: No Status: Chronic Qualifiers: Diabetes mellitus detention insulin use: with detention use Diabetes mellitus complication status: with kidney complications Diabetes mellitus complication detail: with chronic kidney disease Chronic kidney disease stage: on chronic dialysis Qualified Code(s): E11.22 - Type 2 diabetes mellitus with diabetic chronic kidney disease; N18.6 - End stage renal disease; Z79.4 - predatory animal exterminator (current) use of insulin; Z99.2 - Dependence on renal dialysis Plan: 1. Continue with clear liquid diet 2. Monitor electrolytes 3. Strict blood pressure and blood sugar control 4. Hemodialysis per Nephrology 5. Monitor volume status 6. GI and DVT prophylaxis
[2021-06-08] MEDS: ONDANSETRON 4 MG/2 ML VIAL IV PRN (12:09)
[2021-06-08 13:16] LABS: C.diff Antigen/Toxin Ag neg : Tox neg (NEG : NEG)
[2021-06-08] MEDS: ENSURE CLEAR 200 ML CAN PO SCH ×2 (14:00→21:27)
--- NOTE | 2021-06-08 16:14 | RAD REPORT ---
EXAM DESCRIPTION: CT - Abdomen Pelvis Wo Contrast - 06/08/2021 4:00 pm CLINICAL HISTORY: Abdominal pain. N/V/ileus COMPARISON: Abdomen Pelvis Wo Contrast dated 06/05/2021; Abdomen Pelvis Wo Contrast dated 020; Abdomen Pelvis Wo Contrast dated 11/06/2018; Abdomen Pelvis Wo Contrast dated 10/21/2017 TECHNIQUE: CT imaging of the abdomen and pelvis was performed without contrast. Solid organ, bowel a nd vascular assessment is limited due to lack of IV and oral contrast. All CT scans are performed using dose optimization technique as appropriate and may include automated exposure control or mA/KV adjustment according to patient size. FINDINGS: Trace bilateral effusions. Cardiomegaly. Coronary calcifications. No focal liver lesions are identified. Gallbladder is contracted, otherwise unremarkable. Re- demonst rated multiple bilateral renal lesions, some which are not well characterized complex in appearance. The largest is a left upper pole renal cyst. The spleen is unremarkable. The pancreas is unremarkable . No retroperitoneal lymphadenopathy. Bladder is within normal limits. Re- demonstrated marked colonic dilatation with some transition at the distal transverse colon. This is similar to prior. There is also fairly pronounced circumferential rectal wall thickening. The colo n measures over 9 centimeters which is similar appear. Small volume of pelvic free fluid. Grade 1 anterolisthesis L4 on L5. Scattered degenerative changes are present in the spine. IMPRESSION: Persistent colonic dilatation with a transition point at the distal transverse colon may be contributing to a partial obstruction. Some gas and stool is seen distally. This finding is simil ar to the CT from 06/05/2021. Also more prominent is circumferential rectal wall thickening that may represent a proctitis. A limited non-contrast examination was performed as detailed.
[2021-06-08] MEDS: PIPER/TAZO/NS 2.25gm 2.25 GM/50 ML BAG IVPB SCH (19:15)
[2021-06-08] MEDS: ATORVASTATIN 10 MG TAB PO SCH (21:26)
[2021-06-09] MEDS: PIPER/TAZO/NS 2.25gm 2.25 GM/50 ML BAG IVPB SCH ×4 (01:00→17:36)
[2021-06-09] MEDS ORDERED: PIPERACIL/TAZO 2.25 GM VIAL IV ONE (03:42)
[2021-06-09] MEDS ORDERED: NA CHLORIDE 0.9% 50 ML ONE (03:49)
--- NOTE | 2021-06-09 06:10 | P.PN ---
Subjective Date of Service: 06/09/21 Primary Care Provider: Dr. Roth; Nephrology-Dr. Mercedes Chief Complaint: Fatigue, low blood pressure Received HD today. Reports still having loose stools & nausea intermittently. Physical Examination - Vital Signs Temperature: 97.9 F Blood Pressure: 121/55 Pulse: 75 Respirations: 18 Pulse Ox (%): 94 - Physical Exam General: Other (appears as his stated age) HEENT: Atraumatic, Normocephalic Neck: Supple, JVD not distended Respiratory: Diminished Cardiovascular: No rubs, No murmurs Gastrointestinal: Soft and benign, Non-distended Musculoskeletal: No clubbing Integumentary: No warmth Neurological: Normal tone Urinary: Other (no bladder distention) - Studies Medications List Reviewed: Yes Assessment And Plan - Plan # ESRD on HD TTS at [facility] History of prostate cancer HD received today HD access: LFA AVF EDW 73 kgs Renal and DM diet Monitor renal panel # Htn BP ok Cont current regimen # Chronic intermittent diarrhea History of lactose intolerance Stool c diff testing & stool cx neg F/u stool GI PCR & plasma CMV PCR Lactose free diet # Anemia of chronic disease Monitor H/H # Renal osteodystrophy Monitor Ca & Phos # DM 2 Mngt per primary team # Debility, Hx of CVA PT/OT Physician Review: Patient Assessed, Agree with Above Assessment and Plan
[2021-06-09] MEDS: INSULIN -REGULAR HUMAN 50 UNIT/0.5 ML ML SQ SCH ×4 (07:30→21:00)
[2021-06-09] MEDS: D50W 25 GM/50 ML SYRINGE IV PRN ×2 (07:54→18:49)
[2021-06-09] MEDS: FOLIC ACID 1 MG TABLET PO SCH (09:02)
[2021-06-09] MEDS: CALCITROL 0.25 MCG CAP PO SCH (09:03)
[2021-06-09] MEDS: cloNIDine HCL 0.1 MG TAB PO SCH ×3 (09:03→21:14)
[2021-06-09] MEDS: VITAMIN D 1000 UNIT TAB PO SCH (09:03)
[2021-06-09] MEDS: CALCIUM CARBONATE 500 MG TAB PO SCH (09:03)
[2021-06-09] MEDS: SERTRALINE HCL 50 MG TAB PO SCH (09:04)
[2021-06-09] MEDS: MULTIVITAMINS,THERAPEUT 1 TAB PO SCH (09:04)
[2021-06-09] MEDS: THIAMINE HCL 100 MG TABLET PO SCH (09:04)
[2021-06-09] MEDS: HYDRALAZINE HCL 25 MG TABLET PO SCH ×3 (09:05→21:13)
[2021-06-09] MEDS: HEPARIN 5000 UNIT/ML 1 ML VIAL SQ SCH ×2 (09:05→21:14)
[2021-06-09] MEDS: FAMOTIDINE 20 MG TAB PO SCH (09:05)
[2021-06-09] MEDS: ENSURE CLEAR 200 ML CAN PO SCH ×3 (09:06→21:14)
--- NOTE | 2021-06-09 10:15 | P.PN ---
Date of Service: 06/08/21 Subjective Patient had nausea and vomiting this morning. However, this evening he had a large bowel movement. He had about 1500 cc noted per nursing staff. His abdomen is feeling better. Will continue to monitor patient. Repeat x-ray in the morning. On the CT scan there did look to be a transition point around the distal colon. GI has been notified. Patient may need colonoscopy. Await GI recommendation Review of Systems 10-point ROS is otherwise unremarkable Physical Examination - Vital Signs Reviewed - Physical Exam General: Alert, In no apparent distress, Oriented x3 Respiratory: Clear to auscultation bilaterally, Normal air movement Cardiovascular: Regular rate/rhythm, Normal S1 S2, No murmurs Gastrointestinal: Normal bowel sounds, Soft and benign, Non-distended, No tenderness Musculoskeletal: No clubbing, No swelling, No tenderness Neurological: Sensation intact, Cranial nerves 3-12 intact Assessment & Plan - Problems (Diagnosis) (1) colonic obstruction Current Visit: Yes Status: Acute (2) Diastolic heart failure Current Visit: No Status: Acute Qualifiers: Heart failure chronicity: acute on chronic Qualified Code(s): I50.33 - Acute on chronic diastolic (congestive) heart failure (3) ESRD (end stage renal disease) on dialysis Current Visit: No Status: Acute (4) Essential hypertension Current Visit: No Status: Chronic (5) Type 2 diabetes mellitus Current Visit: No Status: Chronic Qualifiers: Diabetes mellitus bed bug 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 Continue with a laxative as needed 2. Bowel regimen 3. GI consultation for further evaluation for colonoscopy 4. Dialysis per Nephrology 5. Strict blood pressure and blood sugar control 6. Monitor volume status 7. Repeat x-ray in the morning 8. Monitor labs and electrolytes 9. GI and DVT prophylaxis
--- NOTE | 2021-06-09 11:14 | RAD REPORT ---
EXAM DESCRIPTION: RAD - Abdomen W Erect - 06/09/2021 11:06 am CLINICAL HISTORY: Abdominal pain FINDINGS: The colonic dilatation has diminished since June 08. No free air seen beneath the diaphragm
[2021-06-09] MEDS: ATORVASTATIN 10 MG TAB PO SCH (21:13)
[2021-06-10] MEDS: PIPER/TAZO/NS 2.25gm 2.25 GM/50 ML BAG IVPB SCH ×3 (01:03→16:32)
[2021-06-10 04:33] LABS: Absolute Lymphocytes (CBC) 0.7 K/uL (0.7-4.9); Basophils % 0.3 % (0-1.3); Hematocrit 39.9 % (39.6-49.0); MPV 8.2 fL (7.6-11.3)
[2021-06-10 04:42] LABS: Magnesium 2.2 mg/dL (1.8-2.4)
[2021-06-10] MEDS: INSULIN -REGULAR HUMAN 50 UNIT/0.5 ML ML SQ SCH ×4 (07:30→21:00)
[2021-06-10] MEDS ORDERED: POTASSIUM 25 MEQ EFFERV TAB PO ONE (08:43)
[2021-06-10] MEDS: ENSURE CLEAR 200 ML CAN PO SCH ×3 (09:00→21:23)
--- NOTE | 2021-06-10 09:22 | P.PN ---
Subjective Date of Service: 06/10/21 Primary Care Provider: Dr. Roth; Nephrology-Dr. Mercedes Chief Complaint: Fatigue, low blood pressure Received HD yesterday. Reports still having loose stools. Physical Examination - Vital Signs Temperature: 98.1 F Blood Pressure: 179/74 Pulse: 58 Respirations: 16 Pulse Ox (%): 98 - Physical Exam General: Other (frail-looking) HEENT: Atraumatic, Normocephalic Neck: Supple, JVD not distended Respiratory: Diminished Cardiovascular: No rubs, No murmurs Gastrointestinal: Soft and benign, Non-distended Musculoskeletal: No clubbing Integumentary: No warmth Neurological: Normal tone Lymphatics: No axilla or inguinal lymphadenopathy Urinary: Other (No bladder distention) External genitalia: Deferred Rectal: Deferred - Studies Medications List Reviewed: Yes Assessment And Plan - Plan # ESRD on HD TTS at [facility] History of prostate cancer No acute indication for HD today Next HD tomorrow HD access: LFA AVF EDW 73 kgs Renal and DM diet Monitor renal panel # Htn BP ok Cont current regimen # Chronic intermittent diarrhea History of lactose intolerance Stool c diff testing & stool cx neg F/u stool GI PCR & plasma CMV PCR Lactose free diet # Anemia of chronic disease Monitor H/H # Renal osteodystrophy Monitor Ca & Phos # DM 2 Mngt per primary team # Debility, Hx of CVA PT/OT Physician Review: Patient Assessed, Agree with Above Assessment and Plan
[2021-06-10] MEDS: THIAMINE HCL 100 MG TABLET PO SCH (09:32)
[2021-06-10] MEDS: FOLIC ACID 1 MG TABLET PO SCH (09:32)
[2021-06-10] MEDS: FAMOTIDINE 20 MG TAB PO SCH (09:32)
[2021-06-10] MEDS: MULTIVITAMINS,THERAPEUT 1 TAB PO SCH (09:33)
[2021-06-10] MEDS: CALCITROL 0.25 MCG CAP PO SCH (09:33)
[2021-06-10] MEDS: SERTRALINE HCL 50 MG TAB PO SCH (09:33)
[2021-06-10] MEDS: CALCIUM CARBONATE 500 MG TAB PO SCH (09:33)
[2021-06-10] MEDS: cloNIDine HCL 0.1 MG TAB PO SCH ×3 (09:34→21:18)
[2021-06-10] MEDS: HEPARIN 5000 UNIT/ML 1 ML VIAL SQ SCH ×2 (09:34→21:18)
[2021-06-10] MEDS: VITAMIN D 1000 UNIT TAB PO SCH (09:34)
[2021-06-10] MEDS: HYDRALAZINE HCL 25 MG TABLET PO SCH ×3 (09:35→21:19)
[2021-06-10] MEDS: LOPERAMIDE HCL 2 MG CAPSULE PO PRN (09:55)
[2021-06-10] MEDS: HYDROCORTISONE SUC 100 MG INJ IV SCH ×2 (16:32→16:38)
[2021-06-10] MEDS: ATORVASTATIN 10 MG TAB PO SCH (21:18)
[2021-06-10] MEDS ORDERED: CALCIUM GLUC 10% INJ 4.65 MEQ in NA CHLORIDE 0.9% 100 ML IV ONE (22:25)
[2021-06-10] MEDS: HYDRALAZINE HCL 20 MG/ML VIAL IV PRN (23:40)
[2021-06-11] MEDS: CALCIUM GLUCONATE 1 GM IVPB 1 GM/50 ML BAG IV ONE ×2 (00:56→01:01)
[2021-06-11] MEDS: HYDROCORTISONE SUC 100 MG INJ IV SCH ×5 (01:00→23:59)
[2021-06-11] MEDS: PIPER/TAZO/NS 2.25gm 2.25 GM/50 ML BAG IVPB SCH ×5 (01:00→23:59)
[2021-06-11] MEDS ORDERED: WATER FOR INJ,STERILE 10 ML ONE (05:10)
[2021-06-11 06:15] LABS: Magnesium 2.3 mg/dL (1.8-2.4); Phosphorus 3.1 mg/dL (2.5-4.9); Potassium 3.3 mmol/L (3.5-5.1)
[2021-06-11 06:20] LABS: Basophils % 0.2 % (0-1.3); Hematocrit 39.1 % (39.6-49.0); Lymphocytes % 14.5 % (15.3-44.8); MPV 8.2 fL (7.6-11.3); RBC Red Blood Cell Count 5.11 M/uL (4.33-5.43)
[2021-06-11] MEDS: INSULIN -REGULAR HUMAN 50 UNIT/0.5 ML ML SQ SCH ×4 (07:30→21:00)
[2021-06-11] MEDS ORDERED: POTASSIUM CL SA 10 MEQ TAB PO ONE (09:00)
[2021-06-11] MEDS: ENSURE CLEAR 200 ML CAN PO SCH ×3 (09:33→22:28)
[2021-06-11] MEDS: FOLIC ACID 1 MG TABLET PO SCH (09:34)
[2021-06-11] MEDS: HYDRALAZINE HCL 25 MG TABLET PO SCH ×3 (09:34→22:23)
[2021-06-11] MEDS: THIAMINE HCL 100 MG TABLET PO SCH (09:34)
[2021-06-11] MEDS: VITAMIN D 1000 UNIT TAB PO SCH (09:34)
[2021-06-11] MEDS: cloNIDine HCL 0.1 MG TAB PO SCH ×3 (09:34→22:23)
[2021-06-11] MEDS: SERTRALINE HCL 50 MG TAB PO SCH (09:35)
[2021-06-11] MEDS: MULTIVITAMINS,THERAPEUT 1 TAB PO SCH (09:35)
[2021-06-11] MEDS: FAMOTIDINE 20 MG TAB PO SCH (09:35)
[2021-06-11] MEDS: CALCITROL 0.25 MCG CAP PO SCH (09:35)
[2021-06-11] MEDS: CALCIUM CARBONATE 500 MG TAB PO SCH (09:35)
[2021-06-11] MEDS: HEPARIN 5000 UNIT/ML 1 ML VIAL SQ SCH ×2 (09:35→22:25)
[2021-06-11 12:40] LABS: C.diff Antigen/Toxin Ag neg : Tox neg (NEG : NEG)
--- NOTE | 2021-06-11 14:32 | P.PN ---
Subjective Date of Service: 06/11/21 Primary Care Provider: Dr. Roth; Nephrology-Dr. Mercedes Chief Complaint: Fatigue, low blood pressure today No overnight events HD today discharge plan as per primary team Physical exam general: Awake and alert, NAD Neck; Supple, No elevated JVD hear: RRR, normal S1,2 no murmur or rub Chest: CTAB, no rlaes or wheezes Abdomen: Soft , Nt Extremities no edema # ESRD on HD TTS at [facility] History of prostate cancer HD today Renal and DM diet Monitor renal panel # HTN will likely improve with HD pt was hypotensive on admission , requiredmidodrine Cont current BP meds for now # Chronic diarrhea improved now History of lactose intolerance F/u stool c diff testing, stool cx, stool GI PCR Lactose free diet # Anemia of chronic disease no need for epogen # Renal osteodystrophy cont calcium on calcitriol # DM 2 Management per primary team # Debility, Hx of CVA PT/OT Physical Examination - Vital Signs Temperature: 97.6 F Blood Pressure: 187/84 Pulse: 61 Respirations: 16 Pulse Ox (%): 99 - Studies Medications List Reviewed: Yes Assessment And Plan Physician Review: Patient Assessed, Agree with Above Assessment and Plan
[2021-06-11] MEDS: HYDRALAZINE HCL 20 MG/ML VIAL IV PRN (16:53)
[2021-06-11] MEDS: ATORVASTATIN 10 MG TAB PO SCH (22:24)
[2021-06-12] MEDS: INSULIN -REGULAR HUMAN 50 UNIT/0.5 ML ML SQ SCH ×4 (07:30→21:00)
[2021-06-12] MEDS: PIPER/TAZO/NS 2.25gm 2.25 GM/50 ML BAG IVPB SCH ×2 (08:09→16:20)
[2021-06-12] MEDS: MULTIVITAMINS,THERAPEUT 1 TAB PO SCH (08:10)
[2021-06-12] MEDS: HYDRALAZINE HCL 20 MG/ML VIAL IV PRN ×2 (08:10→16:34)
[2021-06-12] MEDS: HEPARIN 5000 UNIT/ML 1 ML VIAL SQ SCH ×2 (08:10→21:58)
[2021-06-12] MEDS: HYDROCORTISONE SUC 100 MG INJ IV SCH (08:10)
[2021-06-12] MEDS: SERTRALINE HCL 50 MG TAB PO SCH (08:11)
[2021-06-12] MEDS: CALCIUM CARBONATE 500 MG TAB PO SCH (08:11)
[2021-06-12] MEDS: VITAMIN D 1000 UNIT TAB PO SCH (08:11)
[2021-06-12] MEDS: FOLIC ACID 1 MG TABLET PO SCH (08:11)
[2021-06-12] MEDS: FAMOTIDINE 20 MG TAB PO SCH (08:11)
[2021-06-12 09:28] LABS: Magnesium 2.2 mg/dL (1.8-2.4); Potassium 3.2 mmol/L (3.5-5.1)
[2021-06-12] MEDS: HYDRALAZINE HCL 25 MG TABLET PO SCH ×3 (10:01→21:58)
[2021-06-12] MEDS: cloNIDine HCL 0.1 MG TAB PO SCH ×3 (10:01→21:58)
[2021-06-12] MEDS: CALCITROL 0.25 MCG CAP PO SCH (10:01)
[2021-06-12] MEDS: THIAMINE HCL 100 MG TABLET PO SCH (10:01)
[2021-06-12] MEDS: ENSURE CLEAR 200 ML CAN PO SCH (10:02)
[2021-06-12] MEDS: LOPERAMIDE HCL 2 MG CAPSULE PO PRN ×2 (11:30→21:58)
--- NOTE | 2021-06-12 13:51 | P.PN ---
Subjective Date of Service: 06/12/21 Primary Care Provider: Dr. Roth; Nephrology-Dr. Mercedes Chief Complaint: Fatigue, low blood pressure today No overnight events still have diarrhea will add cholestyramine Physical exam general: Awake and alert, NAD Neck; Supple, No elevated JVD hear: RRR, normal S1,2 no murmur or rub Chest: CTAB, no rlaes or wheezes Abdomen: Soft , Nt Extremities no edema # ESRD on HD TTS at [facility] History of prostate cancer HD today Renal and DM diet Monitor renal panel # HTN will likely improve with HD pt was hypotensive on admission , requiredmidodrine Cont current BP meds for now # Chronic diarrhea improved now History of lactose intolerance C.diff negative Cont Imodium will add cholestyramine # Anemia of chronic disease no need for epogen # Renal osteodystrophy cont calcium on calcitriol # DM 2 Management per primary team # Debility, Hx of CVA PT/OT Physical Examination - Vital Signs Temperature: 97.4 F Blood Pressure: 143/64 Pulse: 73 Respirations: 16 Pulse Ox (%): 100 - Studies Medications List Reviewed: Yes Assessment And Plan Physician Review: Patient Assessed, Agree with Above Assessment and Plan
--- NOTE | 2021-06-12 13:59 | P.PN ---
Date of Service: 06/09/21 Subjective Patient is feeling better but the family is not comfortable with patient going home. However, patient was wanting to go home. The family states they will come and talk to me regarding patient's plan of care. Nausea and vomiting are better. Colonic dilatation is improved. Continue antibiotics and anti- inflammatories. Outpatient colonoscopy per Gastroenterology. Review of Systems 10-point ROS is otherwise unremarkable Physical Examination - Vital Signs Reviewed - Physical Exam General: Alert, In no apparent distress, Oriented x3 Respiratory: Clear to auscultation bilaterally, Normal air movement Cardiovascular: Regular rate/rhythm, Normal S1 S2, No murmurs Gastrointestinal: Normal bowel sounds, Soft and benign, Non-distended, No tenderness Musculoskeletal: No clubbing, No swelling, No tenderness Assessment & Plan - Problems (Diagnosis) (1) Diarrhea/rule out small bowel or colonic obstruction Current Visit: Yes Status: Acute (2) Diastolic heart failure Current Visit: No Status: Acute Qualifiers: Heart failure chronicity: acute on chronic Qualified Code(s): I50.33 - Acute on chronic diastolic (congestive) heart failure (3) ESRD (end stage renal disease) on dialysis Current Visit: No Status: Acute (4) Essential hypertension Current Visit: No Status: Chronic (5) Type 2 diabetes mellitus Current Visit: No Status: Chronic Qualifiers: Diabetes mellitus detention insulin use: with detention use Diabetes mellitus complication status: with kidney complications Diabetes mellitus complication detail: with chronic kidney disease Chronic kidney disease stage: on chronic dialysis Qualified Code(s): E11.22 - Type 2 diabetes mellitus with diabetic chronic kidney disease; N18.6 - End stage renal disease; Z79.4 - halfway (current) use of insulin; Z99.2 - Dependence on renal dialysis Plan: 1. Continue with clear liquid diet; may advance to a full liquid 2. Continue monitoring electrolytes 3. GI recommending outpatient colonoscopy. With CT scan findings will put patient on antibiotics and anti-inflammatories 4. Hemodialysis per Nephrology 5. Family wanting referral to alf facility; however, patient wanting to go home. Will have a meeting with the family. 6. GI and DVT prophylaxis
[2021-06-12] MEDS ORDERED: POTASSIUM CL SA 10 MEQ TAB PO ONE (14:00)
--- NOTE | 2021-06-12 14:01 | P.PN ---
Date of Service: 06/10/21 Subjective Patient continuing to improve with no new complaints. Patient clinical condition is stable. The family was supposed to come in me today. Patient still requesting to go home with family wants facility placement. Nausea vomiting improved. Still having some soft stools and occasional diarrhea but much better. Review of Systems 10-point ROS is otherwise unremarkable Physical Examination - Vital Signs Reviewed - Physical Exam General: Alert, In no apparent distress, Oriented x3 Respiratory: Clear to auscultation bilaterally, Normal air movement Cardiovascular: Regular rate/rhythm, Normal S1 S2, No murmurs Gastrointestinal: Normal bowel sounds, Soft and benign, Non-distended, No tenderness Musculoskeletal: No clubbing, No swelling, No tenderness Assessment & Plan - Problems (Diagnosis) (1) Diarrhea/rule out small bowel or colonic obstruction Current Visit: Yes Status: Acute (2) Diastolic heart failure Current Visit: No Status: Acute Qualifiers: Heart failure chronicity: acute on chronic Qualified Code(s): I50.33 - Acute on chronic diastolic (congestive) heart failure (3) ESRD (end stage renal disease) on dialysis Current Visit: No Status: Acute (4) Essential hypertension Current Visit: No Status: Chronic (5) Type 2 diabetes mellitus Current Visit: No Status: Chronic Qualifiers: 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 Continuing clear liquids with advancing to a full liquid 2. Diarrhea improved. X-ray showing decompression of the colon. Nausea vomiting improved as well. Continue current therapy. 3. GI recommending outpatient colonoscopy. With CT scan findings will put patient on antibiotics and anti-inflammatories 4. Hemodialysis per Nephrology 5. Family wanting referral to correction facility; however, patient wanting to go home. Will have a meeting with the family. 6. GI and DVT prophylaxis
--- NOTE | 2021-06-12 14:06 | P.PN ---
Date of Service: 06/11/21 Subjective Patient continues to improve. Had a long conversation with the family and they spoke with the patient and he is okay was going to a group home facility placement. Family is waiting for referral from case management. Review of Systems 10-point ROS is otherwise unremarkable Physical Examination - Vital Signs Reviewed - Physical Exam General: Alert, In no apparent distress, Oriented x3 Respiratory: Clear to auscultation bilaterally, Normal air movement Cardiovascular: Regular rate/rhythm, Normal S1 S2, No murmurs Gastrointestinal: Normal bowel sounds, Soft and benign, Non-distended, No tenderness Musculoskeletal: No clubbing, No swelling, No tenderness Assessment & Plan - Problems (Diagnosis) (1) Diarrhea/rule out small bowel or colonic obstruction Current Visit: Yes Status: Acute (2) Diastolic heart failure Current Visit: No Status: Acute Qualifiers: Heart failure chronicity: acute on chronic Qualified Code(s): I50.33 - Acute on chronic diastolic (congestive) heart failure (3) ESRD (end stage renal disease) on dialysis Current Visit: No Status: Acute (4) Essential hypertension Current Visit: No Status: Chronic (5) Type 2 diabetes mellitus Current Visit: No Status: Chronic Qualifiers: Diabetes mellitus jail insulin use: with termite helper use Diabetes mellitus complication status: with kidney complications Diabetes mellitus complication detail: with chronic kidney disease Chronic kidney disease stage: on chronic dialysis Qualified Code(s): E11.22 - Type 2 diabetes mellitus with diabetic chronic kidney disease; N18.6 - End stage renal disease; Z79.4 - exterminator termite (current) use of insulin; Z99.2 - Dependence on renal dialysis Plan: 1. Advanced to full liquids; per surgery would continue with full liquid and nothing more to make sure there is no obstruction 2. Continue with antibiotics and anti-inflammatories 3. GI recommending outpatient colonoscopy. 4. Change to oral prednisone tapering dose for treatment of possible inflammatory bowel and also will change antibiotics for colitis 5. Hemodialysis per Nephrology 6. Family wanting referral to group home facility; however, patient wanting to go home. Referral to SNF in [place] 7. GI and DVT prophylaxis
--- NOTE | 2021-06-12 14:10 | P.PN ---
Date of Service: 06/12/21 Subjective Patient tolerating diet. Continues to do well. Daughter at bedside in spoke with her and she is hoping to get him over to a detention facility in the [facility] Review of Systems 10-point ROS is otherwise unremarkable Physical Examination - Vital Signs Reviewed - Physical Exam General: Alert, In no apparent distress, Oriented x3 Respiratory: Clear to auscultation bilaterally, Normal air movement Cardiovascular: Regular rate/rhythm, Normal S1 S2, No murmurs Gastrointestinal: Normal bowel sounds, Soft and benign, Non-distended, No tenderness Musculoskeletal: No clubbing, No swelling, No tenderness Assessment & Plan - Problems (Diagnosis) (1) Diarrhea/rule out small bowel or colonic obstruction Current Visit: Yes Status: Acute (2) Diastolic heart failure Current Visit: No Status: Acute Qualifiers: Heart failure chronicity: acute on chronic Qualified Code(s): I50.33 - Acute on chronic diastolic (congestive) heart failure (3) ESRD (end stage renal disease) on dialysis Current Visit: No Status: Acute (4) Essential hypertension Current Visit: No Status: Chronic (5) Type 2 diabetes mellitus Current Visit: No Status: Chronic Qualifiers: 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 Advanced to full liquids; per surgery would continue with full liquid and nothing more to make sure there is no obstruction 2. Continue with antibiotics and anti-inflammatories; switch to oral therapy 3. GI recommending outpatient colonoscopy. 4. Change to oral prednisone tapering dose for treatment of possible inflammatory bowel and also will change antibiotics for colitis; outpatient colonoscopy per GI, Dr. Han 5. Hemodialysis per Nephrology; day starting cholestyramine as well. Patient has soft stool today per nurses x 2 6. residential facility placement. Referral to SNF in [place] 7. GI and DVT prophylaxis
[2021-06-12] MEDS: CHOLESTYRAMINE/ASP 4 GM/PKT PO SCH (16:20)
[2021-06-12] MEDS: predniSONE 20 MG TAB PO SCH (21:58)
[2021-06-12] MEDS: ATORVASTATIN 10 MG TAB PO SCH (21:58)
[2021-06-12] MEDS: NEPRO SHAKE 237 ML CAN PO SCH (22:11)
[2021-06-13] MEDS: PIPER/TAZO/NS 2.25gm 2.25 GM/50 ML BAG IVPB SCH ×3 (01:01→18:17)
[2021-06-13] MEDS: HYDRALAZINE HCL 20 MG/ML VIAL IV PRN (04:30)
--- NOTE | 2021-06-13 05:56 | P.PN ---
Subjective Date of Service: 06/13/21 Primary Care Provider: Dr. Roth; Nephrology-Dr. Mercedes Chief Complaint: Fatigue, low blood pressure Subjective: Improving (Less diarrhea noted.) Physical Examination - Vital Signs Temperature: 97 F Blood Pressure: 184/74 Pulse: 64 Respirations: 16 Pulse Ox (%): 100 - Studies Medications List Reviewed: Yes Assessment & Plan Discharge Plan: Home Plan to discharge in: 24 Hours Physician Review Additional Text: Covid: Negative Chest x-ray: COMPARISON: Abdomen Acute Series dated 10/12/2020; Chest Single View dated 10/11/2020; Chest Single View dated 09/02/2020; Chest Single View dated 11/11/2019 FINDINGS: No evidence of edema or pneumonia. Cardiomegaly.No acute osseous abnormality. No significant pleural effusions or pneumothorax. IMPRESSION: No acute cardiopulmonary disease. Physical Exam: GENERAL: The patient is a well-developed, well-nourished, in no apparent distress. Alert and oriented x3. VITAL SIGNS: Reviewed HEENT: Patient appears better hydrated. NECK: Supple. No carotid bruits. No lymphadenopathy or thyromegaly. LUNGS: Clear to auscultation. No crackles or wheezes are heard. HEART: Regular rate and rhythm, no appreciable gallops, rubs, murmurs or extra heart sounds ABDOMEN: Soft, nontender, and nondistended. Positive bowel sounds. No hepatosplenomegaly was noted. EXTREMITIES: Without any cyanosis, clubbing, rash, lesions or peripheral edema. NEUROLOGIC: The patient is oriented to person, place and time. Strength and sensation are grossly intact. Face is symmetric. Muscle wasting. SKIN: Normal color, turgor and temperature. No ulcerations or rashes noted. Impression: Fatigue secondary to hypotension with history of hypertension Chronic diarrhea with lactose intolerance complicated with Ileus End-stage renal disease on hemodialysis Diabetes mellitus type 2 History of CVA GERD PVD Depression History of prostate cancer Plan: Fatigue secondary to hypotension with history of hypertension: Blood pressure now stable. Continue with medication at this time. Patient awaiting approval for skilled placement. Chronic diarrhea with lactose intolerance complicated with Ileus: Improved at this time. Continue cholestyramine. Patient also on IV antibiotic therapy, steroids. Patient also on Imodium as needed. Will discuss with GI. Slowly advance diet. Patient will need colonoscopy as an outpatient. End-stage renal disease on hemodialysis: Continue with dialysis every Sunday, Sunday and Sunday. Will discuss with nephrology.. Diabetes mellitus type 2: Oral intake encouraged. Increase Nepro supplementation 3 times a day. Dietary consult to evaluate daily needs. History of CVA: Continue with Lipitor GERD: Continue Pepcid PVD: Continue home medication Depression: Continue with medicationZoloft History of prostate cancer: Overall stable Code Status: Patient is DNR DVT prophylaxis: Heparin Advanced Care Planning-30 minutes: Skilled placement facility Time Spent Managing Pts Care (In Minutes): 55
[2021-06-13] MEDS: INSULIN -REGULAR HUMAN 50 UNIT/0.5 ML ML SQ SCH ×4 (07:30→20:55)
[2021-06-13] MEDS: NEPRO SHAKE 237 ML CAN PO SCH ×2 (09:00→20:55)
[2021-06-13] MEDS ORDERED: POTASSIUM CL SA 10 MEQ TAB PO ONE ×2 (09:30→21:00)
[2021-06-13] MEDS: CHOLESTYRAMINE/ASP 4 GM/PKT PO SCH ×2 (10:17→18:17)
[2021-06-13] MEDS: MULTIVITAMINS,THERAPEUT 1 TAB PO SCH (10:18)
[2021-06-13] MEDS: cloNIDine HCL 0.1 MG TAB PO SCH ×3 (10:18→20:54)
[2021-06-13] MEDS: HEPARIN 5000 UNIT/ML 1 ML VIAL SQ SCH ×2 (10:19→20:54)
[2021-06-13] MEDS: HYDRALAZINE HCL 25 MG TABLET PO SCH ×3 (10:19→20:54)
[2021-06-13] MEDS: THIAMINE HCL 100 MG TABLET PO SCH (10:19)
[2021-06-13] MEDS: FAMOTIDINE 20 MG TAB PO SCH (10:19)
[2021-06-13] MEDS: FOLIC ACID 1 MG TABLET PO SCH (10:19)
[2021-06-13] MEDS: VITAMIN D 1000 UNIT TAB PO SCH (10:19)
[2021-06-13] MEDS: predniSONE 20 MG TAB PO SCH ×2 (10:20→20:57)
[2021-06-13] MEDS: CALCITROL 0.25 MCG CAP PO SCH (10:20)
[2021-06-13] MEDS: CALCIUM CARBONATE 500 MG TAB PO SCH (10:20)
[2021-06-13] MEDS: SERTRALINE HCL 50 MG TAB PO SCH (12:24)
--- NOTE | 2021-06-13 14:06 | PN ---
Reason For Service: Abdominal distention. Subjective: The patient is awake, alert. No distress. No abdominal pain today. He is tolerating t he diet. Objective: General: The patient is awake, alert. Chest: Clear. Abdomen: Soft and depressible. No guarding or rebound. No peritoneal signs. Extremities: Good capillary refill. Last x-ray that we have in 2020 shows improvement from the previous colonic dilatation. Assessment: 80-year-old patient clinically stable. Abdomen soft and depressible. Tolerating diet. We can advance diet slowly. He has an ileus. It has been shown different in x-rays and imaging, al though we do not know the etiology of that. When he gets better from where he is here in this hospit al right now, I encouraged him to have a GI workup by the supervisor print line that will include a colo noscopy to make sure there is no outflow issues or mechanical obstruction. WILLIAM/DEONTE Voice ID: [id number] Report ID: [id number]
[2021-06-13] MEDS: LOPERAMIDE HCL 2 MG CAPSULE PO PRN (18:39)
--- NOTE | 2021-06-13 20:33 | PN ---
Date of Progress Note: 06/13/2021 Chief Complaint: End-stage renal disease, on hemodialysis. Subjective: Patient is undergoing dialysis on Sunday, , and Sunday. Patient has multiple medical problems including history of severe deconditioning, ileus, chronic diarrhea, hypertension, hypertensive heart and kidney disease. Review of Systems: Patient denies fever, chills. Denies melena, hematemesis. Physical Examination: Lungs: Clear to auscultation bilaterally. Heart: S1, S2. Abdomen: Soft, benign. Extremities: No edema. Impression And Plan: 1. End-stage renal disease. Dialysis is scheduled for tomorrow. Patient will continue renal and diabetic diet. We will monitor renal panel and adjust electrolytes on dialysis. 2. Chronic diarrhea. Clostridium difficile negative. Continue Imodium and cholestyramine. 3. Anemia of chronic kidney disease. Continue erythropoiesis-stimulating agent. 4. Renal osteodystrophy. Continue calcium binders and calcitriol. 5. Deconditioning , physical therapy per primary team. SYLVIA/DEONTE Voice ID: [id number] Report ID: [id number] MTDD
[2021-06-13] MEDS: ATORVASTATIN 10 MG TAB PO SCH (20:53)
[2021-06-14] MEDS: HYDRALAZINE HCL 20 MG/ML VIAL IV PRN ×3 (00:53→18:47)
[2021-06-14] MEDS: PIPER/TAZO/NS 2.25gm 2.25 GM/50 ML BAG IVPB SCH ×3 (00:54→16:29)
--- NOTE | 2021-06-14 05:56 | P.PN ---
Subjective Date of Service: 06/14/21 Primary Care Provider: Dr. Roth; Nephrology-Dr. Mercedes Chief Complaint: Fatigue, low blood pressure Subjective: Improving, Doing well Physical Examination - Vital Signs Temperature: 97 F Blood Pressure: 173/79 Pulse: 66 Respirations: 16 Pulse Ox (%): 100 - Studies Medications List Reviewed: Yes Assessment & Plan Discharge Plan: Other (retirement facility) Plan to discharge in: 24 Hours Physician Review Additional Text: Covid: Negative Chest x-ray: COMPARISON: Abdomen Acute Series dated 10/12/2020; Chest Single View dated 10/11/2020; Chest Single View dated 09/02/2020; Chest Single View dated 11/11/2019 FINDINGS: No evidence of edema or pneumonia. Cardiomegaly.No acute osseous abnormality. No significant pleural effusions or pneumothorax. IMPRESSION: No acute cardiopulmonary disease. Physical Exam: GENERAL: The patient is a well-developed, well-nourished, in no apparent distress. Alert and oriented x3. VITAL SIGNS: Reviewed HEENT: Patient appears better hydrated. NECK: Supple. No carotid bruits. No lymphadenopathy or thyromegaly. LUNGS: Clear to auscultation. No crackles or wheezes are heard. HEART: Regular rate and rhythm, no appreciable gallops, rubs, murmurs or extra heart sounds ABDOMEN: Soft, nontender, and nondistended. Positive bowel sounds. No hepatosplenomegaly was noted. EXTREMITIES: Without any cyanosis, clubbing, rash, lesions or peripheral edema. NEUROLOGIC: The patient is oriented to person, place and time. Strength and sensation are grossly intact. Face is symmetric. Muscle wasting. SKIN: Normal color, turgor and temperature. No ulcerations or rashes noted. Impression: Fatigue secondary to hypotension with history of hypertension Chronic diarrhea with lactose intolerance complicated with Ileus End-stage renal disease on hemodialysis Diabetes mellitus type 2 History of CVA GERD PVD Depression History of prostate cancer Plan: Fatigue secondary to hypotension with history of hypertension: We will increase hydralazine for better blood pressure control. Awaiting approval for skilled placement. Chronic diarrhea with lactose intolerance complicated with Ileus: Improved at this time. Continue cholestyramine. Patient also on IV antibiotic therapy, steroids. If repeat blood cultures negative will transition to oral antibiotic therapy. Patient also on Imodium as needed. Will need GI evaluation as an outpatientcolonoscopy slowly advance diet. End-stage renal disease on hemodialysis: Continue with dialysis every Sunday, Sunday and Sunday. Will discuss with nephrology.. Diabetes mellitus type 2: Oral intake encouraged. Increase Nepro supplementation 3 times a day. Dietary consult to evaluate daily needs. History of CVA: Continue with Lipitor GERD: Continue Pepcid PVD: Continue home medication Depression: Continue with medicationZoloft History of prostate cancer: Overall stable Code Status: Patient is DNR DVT prophylaxis: Heparin Advanced Care Planning-30 minutes: Skilled placement facility Time Spent Managing Pts Care (In Minutes): 55
[2021-06-14 06:44] LABS: Absolute Lymphocytes (CBC) 1.9 K/uL (0.7-4.9); Basophils % 0.5 % (0-1.3); Hematocrit 37.2 % (39.6-49.0); Lymphocytes % 17.3 % (15.3-44.8); MPV 8.2 fL (7.6-11.3); RBC Red Blood Cell Count 4.83 M/uL (4.33-5.43)
[2021-06-14 07:13] LABS: Magnesium 2.2 mg/dL (1.8-2.4); Potassium 5.1 mmol/L (3.5-5.1)
[2021-06-14] MEDS: INSULIN -REGULAR HUMAN 50 UNIT/0.5 ML ML SQ SCH ×4 (07:30→21:00)
[2021-06-14 08:20] LABS: Blood Morphology Comment NOTED (NOT SEEN); Platelet Estimate DECR; White Blood Cell Scan OK (OK)
[2021-06-14 08:21] LABS: Burr Cells 1+; Elliptocytes 1+
[2021-06-14] MEDS: NEPRO SHAKE 237 ML CAN PO SCH ×2 (09:00→20:54)
[2021-06-14] MEDS: HEPARIN 5000 UNIT/ML 1 ML VIAL SQ SCH ×2 (09:00→20:54)
[2021-06-14] MEDS: SERTRALINE HCL 50 MG TAB PO SCH (09:48)
[2021-06-14] MEDS: CHOLESTYRAMINE/ASP 4 GM/PKT PO SCH ×2 (09:49→16:29)
[2021-06-14] MEDS: CALCITROL 0.25 MCG CAP PO SCH (09:49)
[2021-06-14] MEDS: CALCIUM CARBONATE 500 MG TAB PO SCH (09:49)
[2021-06-14] MEDS: FOLIC ACID 1 MG TABLET PO SCH (09:49)
[2021-06-14] MEDS: predniSONE 20 MG TAB PO SCH ×2 (09:49→20:54)
[2021-06-14] MEDS: VITAMIN D 1000 UNIT TAB PO SCH (09:49)
[2021-06-14] MEDS: THIAMINE HCL 100 MG TABLET PO SCH (09:49)
[2021-06-14] MEDS: FAMOTIDINE 20 MG TAB PO SCH (09:49)
[2021-06-14] MEDS: MULTIVITAMINS,THERAPEUT 1 TAB PO SCH (09:49)
[2021-06-14] MEDS: HYDRALAZINE HCL 25 MG TABLET PO SCH ×3 (12:04→20:54)
[2021-06-14] MEDS: cloNIDine HCL 0.1 MG TAB PO SCH ×3 (12:04→20:53)
--- NOTE | 2021-06-14 12:58 | PN ---
Date of Progress Note: 06/14/2021 Subjective: The patient was admitted with failure to thrive gastroenteritis. The patient being on treatment. The patient had dialysis the day before yesterday, tolerated the dialysis. The patient is scheduled for dialysis today. Objective: Vital Signs: Blood pressure 166/75, pulse of 80, afebrile. The patient's weight has been stable around 63.5. Chest: Decreased air entry in bilateral base. Heart: S1, S2. Systolic murmur. Abdomen: Soft, nontender. Neurologic: Alert. No focality. Lower extremity venous stasis change with lymphedema. Laboratory Data: WBC 11, H and H 12.1/37.2. Sodium 139, potassium 5.1, bicarb 22, BUN 29, creatinine 6.8, calcium 7.4, magnesium 2.8, albumin of 3, corrected calcium 8.2. Current Medications: The patient on include: 1. Tylenol. 2. Atorvastatin. 3. Calcitriol 0.25. 4. Calcium carbonate. 5. Cholecalciferol. 6. Cholestyramine. 7. Clonidine 0.1 t.i.d. 8. Pepcid. 9. Heparin. 10. Hydralazine 25 t.i.d. 11. Loperamide. 12. Multivitamin. 13. Nepro. 14. Zosyn. 15. KCl. 16. Prednisone. 17. Zoloft. Assessment And Plan: 1. End-stage renal disease. Normal volume. I am going to continue the patient on his dialysis schedule as TTS. The patient is going to be scheduled for dialysis today. I see the patient has normal volume. We not going to challenge the patient and we will follow up. 2. Hypokalemia, status post supplement. I am going to dialyze the patient on high potassium bath and we will follow up with the patient. I going to discontinue the supplement as the potassium started been normalize. 3. Gastroenteritis. Continue current treatment. Follow up with the primary. 4. Secondary hyperparathyroid. Continue calcitriol. 5. Hypertension giving the fatigue for the patient. I am going to start the patient on lisinopril. Taper down the hydralazine. Plan to discontinue. Then the second step is to discontinue the clonidine as it is a part of his fatigue. 6. Anemia of chronic kidney disease, H and H on the goal. I going to hold on any LUDWIG for the time being. time spend exam the patient face to face , placeing order , discuses the case with patient and family by bed side and pricing/signage team member including hospitalist 45 min LISSA Voice ID: [id number] Report ID: [id number] ELAINE
[2021-06-14] MEDS: ATORVASTATIN 10 MG TAB PO SCH (20:53)
[2021-06-15] MEDS: PIPER/TAZO/NS 2.25gm 2.25 GM/50 ML BAG IVPB SCH ×2 (00:42→10:09)
[2021-06-15] MEDS: HYDRALAZINE HCL 20 MG/ML VIAL IV PRN (05:30)
--- NOTE | 2021-06-15 05:53 | P.PN ---
Subjective Date of Service: 06/15/21 Primary Care Provider: Dr. Roth; Nephrology-Dr. Mercedes Chief Complaint: Fatigue, low blood pressure Subjective: Improving, Doing well Physical Examination - Vital Signs Temperature: 98.2 F Blood Pressure: 160/69 Pulse: 84 Respirations: 18 Pulse Ox (%): 100 - Studies Medications List Reviewed: Yes Assessment & Plan Discharge Plan: Other (custodial facility) Plan to discharge in: 24 Hours Physician Review Additional Text: Covid: Negative Chest x-ray: COMPARISON: Abdomen Acute Series dated 10/12/2020; Chest Single View dated 10/11/2020; Chest Single View dated 09/02/2020; Chest Single View dated 11/11/2019 FINDINGS: No evidence of edema or pneumonia. Cardiomegaly.No acute osseous abnormality. No significant pleural effusions or pneumothorax. IMPRESSION: No acute cardiopulmonary disease. Physical Exam: GENERAL: The patient is a well-developed, well-nourished, in no apparent distress. Alert and oriented x3. VITAL SIGNS: Reviewed HEENT: Patient appears better hydrated. NECK: Supple. No carotid bruits. No lymphadenopathy or thyromegaly. LUNGS: Clear to auscultation. No crackles or wheezes are heard. HEART: Regular rate and rhythm, no appreciable gallops, rubs, murmurs or extra heart sounds ABDOMEN: Soft, nontender, and nondistended. Positive bowel sounds. No hepatosplenomegaly was noted. EXTREMITIES: Without any cyanosis, clubbing, rash, lesions or peripheral edema. NEUROLOGIC: The patient is oriented to person, place and time. Strength and sensation are grossly intact. Face is symmetric. Muscle wasting. SKIN: Normal color, turgor and temperature. No ulcerations or rashes noted. Impression: Fatigue secondary to hypotension with history of hypertension Chronic diarrhea with lactose intolerance complicated with Ileus End-stage renal disease on hemodialysis Diabetes mellitus type 2 History of CVA GERD PVD Depression History of prostate cancer Plan: Fatigue secondary to hypotension with history of hypertension: Patient doing better. Hydralazine was increased yesterday with better control. White count slightly elevated. Likely from steroids. Will decrease prednisone. Will change IV Zosyn to Flagyl. Awaiting approval for skilled placement Chronic diarrhea with lactose intolerance complicated with Ileus: Improved at this time. Continue cholestyramine. IV antibiotic therapyZosyn changed to Flagyl. Will decrease prednisone to once daily. Patient also on Imodium as needed. End-stage renal disease on hemodialysis: Continue with dialysis every Sunday, Sunday and Sunday. Will discuss with nephrology.. Diabetes mellitus type 2: Oral intake encouraged. Increase Nepro supplementation 3 times a day. Dietary consult to evaluate daily needs. History of CVA: Continue with Lipitor GERD: Continue Pepcid PVD: Continue home medication Depression: Continue with medicationZoloft History of prostate cancer: Overall stable Code Status: Patient is DNR DVT prophylaxis: Heparin Advanced Care Planning-30 minutes: Skilled placement facility Time Spent Managing Pts Care (In Minutes): 55
[2021-06-15 06:56] LABS: Absolute Lymphocytes (CBC) 0.9 K/uL (0.7-4.9); Basophils % 0.1 % (0-1.3); Hematocrit 38.2 % (39.6-49.0); Lymphocytes % 6.2 % (15.3-44.8); RBC Red Blood Cell Count 4.98 M/uL (4.33-5.43)
[2021-06-15 07:12] LABS: Potassium 4.7 mmol/L (3.5-5.1)
[2021-06-15] MEDS: INSULIN -REGULAR HUMAN 50 UNIT/0.5 ML ML SQ SCH ×4 (07:30→21:00)
[2021-06-15 08:13] LABS: Blood Morphology Comment NOTED (NOT SEEN); Ovalocytes SLIGHT; Platelet Estimate DECR; Poikilocytosis SLIGHT
[2021-06-15 08:14] LABS: Burr Cells FEW; Elliptocytes 1+
[2021-06-15] MEDS: NEPRO SHAKE 237 ML CAN PO SCH ×2 (09:00→21:00)
[2021-06-15] MEDS: predniSONE 20 MG TAB PO SCH (09:00)
[2021-06-15] MEDS: CHOLESTYRAMINE/ASP 4 GM/PKT PO SCH ×2 (10:09→18:15)
[2021-06-15] MEDS: lisinopriL 20 MG TAB PO SCH (10:11)
[2021-06-15] MEDS: MULTIVITAMINS,THERAPEUT 1 TAB PO SCH (10:11)
[2021-06-15] MEDS: HYDRALAZINE HCL 25 MG TABLET PO SCH ×3 (10:11→22:24)
[2021-06-15] MEDS: VITAMIN D 1000 UNIT TAB PO SCH (10:11)
[2021-06-15] MEDS: THIAMINE HCL 100 MG TABLET PO SCH (10:12)
[2021-06-15] MEDS: SERTRALINE HCL 50 MG TAB PO SCH (10:12)
[2021-06-15] MEDS: CALCIUM CARBONATE 500 MG TAB PO SCH (10:12)
[2021-06-15] MEDS: FOLIC ACID 1 MG TABLET PO SCH (10:12)
[2021-06-15] MEDS: cloNIDine HCL 0.1 MG TAB PO SCH ×3 (10:13→22:23)
[2021-06-15] MEDS: FAMOTIDINE 20 MG TAB PO SCH (10:13)
[2021-06-15] MEDS: CALCITROL 0.25 MCG CAP PO SCH (10:14)
[2021-06-15] MEDS: HEPARIN 5000 UNIT/ML 1 ML VIAL SQ SCH ×2 (10:14→22:23)
--- NOTE | 2021-06-15 10:56 | PN ---
Date of Progress Note: 06/15/2021 Subjective: The patient was admitted with gastroenteritis, diarrhea. The patient had been tolerating dialysis yesterday, we did not challenge the patient. The patient was started on lisinopril. Blood pressure is still acceptable and controlled. Physical Examination: Vital Signs: Blood pressure 160/69. The patient just medicated right now. Pulse of 84, afebrile. Chest: Clear to auscultation. Heart: S1, S2. Systolic murmur. Abdomen: Soft, nontender. Extremities: No edema. Venous stasis change. Neurologic: Alert. No focality. Laboratory Data: WBC 14.4, continued to rise. Hemoglobin 12.3. Sodium 139, potassium 4.7, bicarb 26, BUN 21, creatinine 5.5, calcium 7.6, phosphorus 3.1, magnesium 2. Current Medications: The patient on include metronidazole 500 t.i.d., heparin, calcium carbonate, atorvastatin, cholestyramine, clonidine 0.1 t.i.d., hydralazine 50 t.i.d., lisinopril 20 daily, Zoloft, folic acid, loperamide, Pepcid. The patient had repeated blood culture yesterday. The patient is afebrile. Assessment And Plan: 1. End-stage renal disease. I am going to continue the patient on dialysis TTS. We will arrange for dialysis tomorrow. The patient is going to be continued to be dialyzed on high potassium bath to avoid any supplement. The patient was started also on lisinopril yesterday. 2. Hypertension. Continue current medication. As I mentioned, the patient was started on lisinopril. We will watch for the response and we will monitor, plan to taper hydralazine if possible and clonidine later on. 3. Secondary hyperparathyroidism, stable. Continue calcium carbonate. 4. Gastroenteritis with ileus. Follow up with primary. The patient has worsening leukocytosis. Follow up culture that done yesterday. 5. Anemia of chronic kidney disease. No need for LUDWIG. 6. Deconditioning. Continue PT/OT. 7. Hypokalemia. The patient is being dialyzed on high potassium bath. We started lisinopril. We will follow up. time spend exam the patient face to face , placeing order , discuses the case with patient and family by bed side and steam turbine assembler including hospitalist 45 min MA/DEONTE Voice ID: [id number] Report ID: [id number] ELAINE
[2021-06-15] MEDS: LOPERAMIDE HCL 2 MG CAPSULE PO PRN (13:09)
[2021-06-15] MEDS: metroNIDAZOLE 500 MG TABLET PO SCH ×2 (13:10→22:23)
[2021-06-15] MEDS: ATORVASTATIN 10 MG TAB PO SCH (22:23)
--- NOTE | 2021-06-16 05:51 | P.PN ---
Subjective Date of Service: 06/16/21 Primary Care Provider: Dr. Roth; Nephrology-Dr. Mercedes Chief Complaint: Fatigue, low blood pressure Subjective: Doing well Physical Examination - Vital Signs Temperature: 97.6 F Blood Pressure: 160/72 Pulse: 66 Respirations: 14 Pulse Ox (%): 100 - Studies Medications List Reviewed: Yes Assessment & Plan Discharge Plan: Other ([facility]it[facility] facility) Plan to discharge in: 24 Hours Physician Review Additional Text: Covid: Negative Chest x-ray: COMPARISON: Abdomen Acute Series dated 10/12/2020; Chest Single View dated 10/11/2020; Chest Single View dated 09/02/2020; Chest Single View dated 11/11/2019 FINDINGS: No evidence of edema or pneumonia. Cardiomegaly.No acute osseous abno rmality. No significant pleural effusions or pneumothorax. IMPRESSION: No acute cardiopulmonary disease. Physical Exam: GENERAL: The patient is a well-developed, well-nourished, in no apparent distress. Alert and oriented x3. VITAL SIGNS: Reviewed HEENT: Patient appears better hydrated. NECK: Supple. No carotid bruits. No lymphadenopathy or thyromegaly. LUNGS: Clear to auscultation. No crackles or wheezes are heard. HEART: Regular rate and rhythm, no appreciable gallops, rubs, murmurs or extra heart sounds ABDOMEN: Soft, nontender, and nondistended. Positive bowel sounds. No hepatosplenomegaly was noted. EXTREMITIES: Without any cyanosis, clubbing, rash, lesions or peripheral edema. NEUROLOGIC: The patient is oriented to person, place and time. Strength and sensation are grossly intact. Face is symmetric. Muscle wasting. SKIN: Normal color, turgor and temperature. No ulcerations or rashes noted. Impression: Fatigue secondary to hypotension with history of hypertension Chronic diarrhea with lactose intolerance complicated with Ileus End-stage renal disease on hemodialysis Diabetes mellitus type 2 History of CVA GERD PVD Depression History of prostate cancer Plan: Fatigue secondary to hypotension with history of hypertension: Patient doing well. Currently on oral steroid. Continue Flagyl. Awaiting approval from [facility] [employer] dialysis. Case discussed with nephrology to see if he can help with process. Awaiting approval for skilled placement. Chronic diarrhea with lactose intolerance complicated with Ileus: Improved at this time. Continue cholestyramine, prednisone, Flagyl. Patient also on Imodium as needed. End-stage renal disease on hemodialysis: Continue with dialysis every Sunday, Sunday and Sunday. Will discuss with nephrology. Waiting approval on dialysis at [facility]. Diabetes mellitus type 2: Oral intake encouraged. Continue Nepro supplementation 3 times a day. Dietary consult to evaluate daily needs. History of CVA: Continue with Lipitor GERD: Continue Pepcid PVD: Continue home medication Depression: Continue with medicationZoloft History of prostate cancer: Overall stable Code Status: Patient is DNR DVT prophylaxis: Heparin Advanced Care Planning-30 minutes: Skilled placement facility Time Spent Managing Pts Care (In Minutes): 55
[2021-06-16 06:31] LABS: Albumin 2.5 g/dL (3.4-5.0); Magnesium 2.1 mg/dL (1.8-2.4); Phosphorus 1.4 mg/dL (2.5-4.9); Potassium 4.6 mmol/L (3.5-5.1)
[2021-06-16 06:45] LABS: Absolute Lymphocytes (CBC) 1.8 K/uL (0.7-4.9); Basophils % 0.5 % (0-1.3); Lymphocytes % 15.4 % (15.3-44.8); MPV 8.4 fL (7.6-11.3); RBC Red Blood Cell Count 4.58 M/uL (4.33-5.43)
[2021-06-16] MEDS: INSULIN -REGULAR HUMAN 50 UNIT/0.5 ML ML SQ SCH ×4 (07:30→21:00)
[2021-06-16] MEDS: HYDRALAZINE HCL 25 MG TABLET PO SCH ×3 (09:00→21:48)
[2021-06-16] MEDS: NEPRO SHAKE 237 ML CAN PO SCH ×2 (09:00→21:00)
[2021-06-16] MEDS: cloNIDine HCL 0.1 MG TAB PO SCH ×3 (10:16→21:48)
[2021-06-16] MEDS: CHOLESTYRAMINE/ASP 4 GM/PKT PO SCH ×2 (10:16→17:25)
[2021-06-16] MEDS: MULTIVITAMINS,THERAPEUT 1 TAB PO SCH (10:16)
[2021-06-16] MEDS ORDERED: POTASSIUM PHOS 10 MM in NA CHLORIDE 0.9% 250 ML IV ONE (10:17)
[2021-06-16] MEDS: metroNIDAZOLE 500 MG TABLET PO SCH ×3 (10:17→21:48)
[2021-06-16] MEDS: FOLIC ACID 1 MG TABLET PO SCH (10:17)
[2021-06-16] MEDS: CALCIUM CARBONATE 500 MG TAB PO SCH (10:17)
[2021-06-16] MEDS: predniSONE 20 MG TAB PO SCH (10:17)
[2021-06-16] MEDS: VITAMIN D 1000 UNIT TAB PO SCH (10:17)
[2021-06-16] MEDS: lisinopriL 20 MG TAB PO SCH ×3 (10:18→21:48)
[2021-06-16] MEDS: HEPARIN 5000 UNIT/ML 1 ML VIAL SQ SCH ×2 (10:19→21:48)
[2021-06-16] MEDS: CALCITROL 0.25 MCG CAP PO SCH (10:20)
[2021-06-16] MEDS: SERTRALINE HCL 50 MG TAB PO SCH (10:20)
[2021-06-16] MEDS: THIAMINE HCL 100 MG TABLET PO SCH (10:20)
[2021-06-16] MEDS: FAMOTIDINE 20 MG TAB PO SCH (10:20)
--- NOTE | 2021-06-16 13:18 | PN ---
Date of Progress Note: 06/16/2021 Subjective: The patient was admitted with gastroenteritis, failure to thrive. The patient was started on antibiotic. Diarrhea has been subsided. The patient is still deconditioning. The patient is scheduled for dialysis today. The patient was started on lisinopril, to taper down the hydralazine. The patient started feeling slightly better. Physical Examination: Vital Signs: Blood pressure 160/72, pulse of 66, afebrile. Chest: Clear to auscultation. Heart: S1, S2. Systolic murmur. Abdomen: Soft, nontender. Extremities: No edema. Venous stasis change bilaterally. Neurologic: Alert. No focality. Laboratory Data: WBC 11.7, H and H 11.5/35. Sodium 136, potassium 4.6, bicarb 23, BUN 28, creatinine 6.3, calcium 7.3, phosphorus 1.4, magnesium 2.1, albumin 2.8. Corrected calcium is 8.5. Current Medications: The patient on include calcium carbonate 1000 daily, Flagyl, clonidine 0.1 t.i.d., cholestyramine, hydralazine 50 t.i.d., lisinopril 20 daily, Zoloft 25 daily, folic acid, Pepcid, loperamide, Zofran, prednisone 20 mg daily, calcitriol 0.25, cholecalciferol, multivitamin, and thiamine. Assessment And Plan: 1. End-stage renal disease. Normal volume. We will continue the patient on dialysis. The patient is scheduled for dialysis today. We will follow up the patient. 2. Hypertension, controlled, not optimal. We will continue current plan. I will titer up the lisinopril to 20 mg b.i.d. Continue current hydralazine and clonidine dose. Plan to taper down the hydralazine and the clonidine if possible and we will follow up. 3. Hypokalemia. The patient is going to continue to be dialyzed on high potassium bath. Supplement has been discontinued. 4. Hypophosphatemia secondary to failure to thrive. I am going to go ahead and supplement and we will follow up. 5. Secondary hyperparathyroidism. No need for binder as the phosphor on the lower side. 6. Gastroenteritis, continue Flagyl. 7. Deconditioning as by primary. 8. Anemia of chronic kidney disease, stable. No need for LUDWIG. 9. Leukocytosis. Culture still negative. The patient's leukocytosis has been improved. Mostly, it is secondary to gastroenteritis. Continue current antibiotic. We will follow up with the primary. time spend exam the patient face to face placing order , reviewing data , discussed the case with nursing staff, other team care including samm 45 min LISSA Voice ID: [id number] Report ID: [id number] ELAINE
[2021-06-16 13:22] LABS: Platelet Estimate DECR; White Blood Cell Scan OK (OK)
[2021-06-16 13:23] LABS: Anisocytosis 1+; Blood Morphology Comment NOTED (NOT SEEN); Platelets, Giant PRESENT; Poikilocytosis 1+
[2021-06-16] MEDS: HYDRALAZINE HCL 20 MG/ML VIAL IV PRN (17:33)
[2021-06-16] MEDS: ATORVASTATIN 10 MG TAB PO SCH (21:48)
--- NOTE | 2021-06-17 06:09 | P.PN ---
Subjective Date of Service: 06/17/21 Primary Care Provider: Dr. Roth; Nephrology-Dr. Mercedes Chief Complaint: Fatigue, low blood pressure Subjective: Doing well Physical Examination - Vital Signs Temperature: 97.2 F Blood Pressure: 171/73 Pulse: 72 Respirations: 14 Pulse Ox (%): 99 - Studies Medications List Reviewed: Yes Assessment & Plan Discharge Plan: Home Plan to discharge in: 24 Hours Physician Review Additional Text: Covid: Negative Chest x-ray: COMPARISON: Abdomen Acute Series dated 10/12/2020; Chest Single View dated 10/11/2020; Chest Single View dated 09/02/2020; Chest Single View dated 11/11/2019 FINDINGS: No evidence of edema or pneumonia. Cardiomegaly.No acute osseous abnormality. No significant pleural effusions or pneumothorax. IMPRESSION: No acute cardiopulmonary disease. Physical Exam: GENERAL: The patient is a well-developed, well-nourished, in no apparent distress. Alert and oriented x3. VITAL SIGNS: Reviewed HEENT: Patient appears better hydrated. NECK: Supple. No carotid bruits. No lymphadenopathy or thyromegaly. LUNGS: Clear to auscultation. No crackles or wheezes are heard. HEART: Regular rate and rhythm, no appreciable gallops, rubs, murmurs or extra heart sounds ABDOMEN: Soft, nontender, and nondistended. Positive bowel sounds. No hepat osplenomegaly was noted. EXTREMITIES: Without any cyanosis, clubbing, rash, lesions or peripheral edema. NEUROLOGIC: The patient is oriented to person, place and time. Strength and sensation are grossly intact. Face is symmetric. Muscle wasting. SKIN: Normal color, turgor and temperature. No ulcerations or rashes noted. Impression: Fatigue secondary to hypotension with history of hypertension Chronic diarrhea with lactose intolerance complicated with Ileus End-stage renal disease on hemodialysis Diabetes mellitus type 2 History of CVA GERD PVD Depression History of prostate cancer Plan: Fatigue secondary to hypotension with history of hypertension: Patient doing well. Currently on oral steroid. Continue Flagyl. Awaiting approval from [facility] dialysis. Spoke at length with nephrology and social work yesterday. [facility] dialysis finally approved. Now waiting on skilled placement approval. Chronic diarrhea with lactose intolerance complicated with Ileus: Improved at this time. Continue cholestyramine, prednisone, Flagyl. Patient also on Imodium as needed. End-stage renal disease on hemodialysis: Continue with dialysis every Sunday, Sunday and Sunday. Will discuss with nephrology. Waiting approval on dialysis at [facility]. Diabetes mellitus type 2: Oral intake encouraged. Continue Nepro supplementation 3 times a day. Dietary consult to evaluate daily needs. History of CVA: Continue with Lipitor GERD: Continue Pepcid PVD: Continue home medication Depression: Continue with medicationZoloft History of prostate cancer: Overall stable Code Status: Patient is DNR DVT prophylaxis: Heparin Advanced Care Planning-30 minutes: Skilled placement facility Time Spent Managing Pts Care (In Minutes): 55
--- NOTE | 2021-06-17 06:25 | P.PN ---
Subjective Date of Service: 06/17/21 Primary Care Provider: Dr. Roth; Nephrology-Dr. Mercedes Chief Complaint: Fatigue, low blood pressure Subjective: No new changes Received HD yesterday. Reports still having loose stools. Physical Examination - Vital Signs Temperature: 97.2 F Blood Pressure: 171/73 Pulse: 72 Respirations: 14 Pulse Ox (%): 99 - Physical Exam General: In no apparent distress HEENT: Atraumatic, Normocephalic Neck: Supple, JVD not distended Respiratory: Diminished Cardiovascular: No rubs, No murmurs Gastrointestinal: Soft and benign, Non-distended Musculoskeletal: No swelling Integumentary: No warmth Neurological: Normal tone Urinary: Other (no bladder distention) - Studies Medications List Reviewed: Yes Assessment And Plan - Plan # ESRD on HD TTS at [facility] History of prostate cancer No acute indication for HD today Next HD tomorrow HD access: LFA AVF EDW 73 kgs Renal and DM diet Monitor renal panel # Htn BP above goal increase hydralazine to 100 mg by mouth 3 times a day # Hypophosphatemia IV phos repletion today # Hypocalcemia Mild Monitor # Chronic intermittent diarrhea History of lactose intolerance Stool c diff testing & stool cx neg F/u stool GI PCR & plasma CMV PCR Lactose free diet On prednisone, Flagyl, cholestyramine # Anemia of chronic disease Monitor H/H # Renal osteodystrophy Monitor Ca & Phos # DM 2 Mngt per primary team # Debility, Hx of CVA PT/OT # Dispo Awaiting dc to SNF Physician Review: Patient Assessed, Agree with Above Assessment and Plan
[2021-06-17 06:53] LABS: Albumin 2.5 g/dL (3.4-5.0)
[2021-06-17 06:55] LABS: Magnesium 2.1 mg/dL (1.8-2.4); Potassium 4.7 mmol/L (3.5-5.1)
[2021-06-17] MEDS: INSULIN -REGULAR HUMAN 50 UNIT/0.5 ML ML SQ SCH ×4 (07:30→21:00)
[2021-06-17] MEDS ORDERED: SODIUM PHOSPHATE 20 MM in NA CHLORIDE 0.9% 250 ML IV ONE (08:00)
[2021-06-17] MEDS: cloNIDine HCL 0.1 MG TAB PO SCH ×4 (09:00→21:07)
[2021-06-17] MEDS: lisinopriL 20 MG TAB PO SCH ×3 (09:00→21:07)
[2021-06-17] MEDS: HYDRALAZINE HCL 25 MG TABLET PO SCH ×3 (09:00→21:07)
[2021-06-17] MEDS: NEPRO SHAKE 237 ML CAN PO SCH ×2 (10:18→21:00)
[2021-06-17] MEDS: MULTIVITAMINS,THERAPEUT 1 TAB PO SCH (10:19)
[2021-06-17] MEDS: metroNIDAZOLE 500 MG TABLET PO SCH ×3 (10:19→21:07)
[2021-06-17] MEDS: CALCIUM CARBONATE 500 MG TAB PO SCH (10:19)
[2021-06-17] MEDS: SERTRALINE HCL 50 MG TAB PO SCH (10:19)
[2021-06-17] MEDS: CALCITROL 0.25 MCG CAP PO SCH (10:19)
[2021-06-17] MEDS: HEPARIN 5000 UNIT/ML 1 ML VIAL SQ SCH ×2 (10:19→21:08)
[2021-06-17] MEDS: VITAMIN D 1000 UNIT TAB PO SCH (10:20)
[2021-06-17] MEDS: FOLIC ACID 1 MG TABLET PO SCH (10:20)
[2021-06-17] MEDS: THIAMINE HCL 100 MG TABLET PO SCH (10:20)
[2021-06-17] MEDS: predniSONE 20 MG TAB PO SCH (10:20)
[2021-06-17] MEDS: FAMOTIDINE 20 MG TAB PO SCH (10:20)
[2021-06-17] MEDS: CHOLESTYRAMINE/ASP 4 GM/PKT PO SCH ×2 (10:21→16:11)
[2021-06-17] MEDS: HYDRALAZINE HCL 20 MG/ML VIAL IV PRN (16:12)
[2021-06-17] MEDS: ATORVASTATIN 10 MG TAB PO SCH (21:07)
[2021-06-18] MEDS: HYDRALAZINE HCL 20 MG/ML VIAL IV PRN ×2 (01:17→23:40)
[2021-06-18] MEDS: LOPERAMIDE HCL 2 MG CAPSULE PO PRN (03:20)
--- NOTE | 2021-06-18 05:58 | P.PN ---
Subjective Date of Service: 06/18/21 Primary Care Provider: Dr. Roth; Nephrology-Dr. Mercedes Chief Complaint: Fatigue, low blood pressure Subjective: Improving, Doing well Physical Examination - Vital Signs Temperature: 97.9 F Blood Pressure: 180/79 Pulse: 73 Respirations: 18 Pulse Ox (%): 99 - Studies Medications List Reviewed: Yes Assessment & Plan Discharge Plan: Other (SNF) Plan to discharge in: 48 Hours Physician Review Additional Text: Covid: Negative Chest x-ray: COMPARISON: Abdomen Acute Series dated 10/12/2020; Chest Single View dated 10/11/2020; Chest Single View dated 09/02/2020; Chest Single View dated 11/11/2019 FINDINGS: No evidence of edema or pneumonia. Cardiomegaly.No acute osseous abnormality. No significant pleural effusions or pneumothorax. IMPRESSION: No acute cardiopulmonary disease. Physical Exam: GENERAL: The patient is a well-developed, well-nourished, in no apparent distress. Alert and oriented x3. VITAL SIGNS: Reviewed HEENT: Patient appears better hydrated. NECK: Supple. No carotid bruits. No lymphadenopathy or thyromegaly. LUNGS: Clear to auscultation. No crackles or wheezes are heard. HEART: Regular rate and rhythm, no appreciable gallops, rubs, murmurs or extra heart sounds ABDOMEN: Soft, nontender, and nondistended. Positive bowel sounds. No hepatosplenomegaly was noted. EXTREMITIES: Without any cyanosis, clubbing, rash, lesions or peripheral edema. NEUROLOGIC: The patient is oriented to person, place and time. Strength and s ensation are grossly intact. Face is symmetric. Muscle wasting. SKIN: Normal color, turgor and temperature. No ulcerations or rashes noted. Impression: Fatigue secondary to hypotension with history of hypertension Chronic diarrhea with lactose intolerance complicated with Ileus End-stage renal disease on hemodialysis Diabetes mellitus type 2 History of CVA GERD PVD Depression History of prostate cancer Plan: Fatigue secondary to hypotension with history of hypertension: Patient doing well at this time. Continue with physical therapy. Continue prednisone, Flagyl. Awaiting approval from [employer]. This was discussed in detail and at length with case management, social and political studies professor and nephrology. It appears that mariluz lysis was approved at the [facility] but now social and political studies professor mentions that patient is out of network. shafting worker spoke to the family and they want to pursue the [place] facility. Await further recommendations from social service liaison. We will have nephrology address with dialysis center in [place] to see if they can help expedite this. Otherwise continue with current plan of care and await for approval. Chronic diarrhea with lactose intolerance complicated with Ileus: Ileus resolved. Continue with medication. Continue cholestyramine, prednisone, Flagyl. Patient also on Imodium as needed. End-stage renal disease on hemodialysis: Continue with dialysis every Sunday, Sunday and Sunday. Discussed in detail with nephrology. Diabetes mellitus type 2: Oral intake encouraged. Continue Nepro supplementation 3 times a day. Dietary consult to evaluate daily needs. History of CVA: Continue with Lipitor GERD: Continue Pepcid PVD: Continue home medication Depression: Continue with medicationZoloft History of prostate cancer: Overall stable Code Status: Patient is DNR DVT prophylaxis: Heparin Advanced Care Planning-30 minutes: Skilled placement facility Time Spent Managing Pts Care (In Minutes): 55
--- NOTE | 2021-06-18 06:25 | P.PN ---
Subjective Date of Service: 06/18/21 Primary Care Provider: Dr. Roth; Nephrology-Dr. Mercedes Chief Complaint: Fatigue, low blood pressure Received HD today. Physical Examination - Vital Signs Temperature: 97.9 F Blood Pressure: 180/79 Pulse: 73 Respirations: 18 Pulse Ox (%): 99 - Physical Exam General: In no apparent distress HEENT: Atraumatic, Normocephalic Neck: Supple, JVD not distended Respiratory: Clear to auscultation bilaterally Cardiovascular: No rubs, No murmurs Gastrointestinal: Soft and benign, Non-distended Neurological: Normal tone External genitalia: Deferred Rectal: Deferred - Studies Medications List Reviewed: Yes Assessment And Plan - Plan # ESRD on HD TTS at [facility] History of prostate cancer HD today HD access: LFA AVF EDW 73 kgs Renal and DM diet Monitor renal panel # Htn Continue current antihypertensive medication regimen # Hypophosphatemia IV phos repletion today # Hypocalcemia Mild Monitor # Chronic intermittent diarrhea History of lactose intolerance Stool c diff testing & stool cx neg F/u stool GI PCR & plasma CMV PCR Lactose free diet On prednisone, Flagyl, cholestyramine # Anemia of chronic disease Monitor H/H # Renal osteodystrophy Monitor Ca & Phos # DM 2 Mngt per primary team # Debility, Hx of CVA PT/OT # Dispo Awaiting dc to SNF Physician Review: Patient Assessed, Agree with Above Assessment and Plan
[2021-06-18] MEDS: INSULIN -REGULAR HUMAN 50 UNIT/0.5 ML ML SQ SCH ×4 (07:30→21:00)
[2021-06-18 07:35] LABS: Albumin 2.6 g/dL (3.4-5.0); Phosphorus 1.2 mg/dL (2.5-4.9); Potassium 4.4 mmol/L (3.5-5.1)
[2021-06-18 08:20] LABS: Absolute Lymphocytes (CBC) 1.7 K/uL (0.7-4.9); Basophils % 0.2 % (0-1.3); Hematocrit 29.8 % (39.6-49.0); Lymphocytes % 19.8 % (15.3-44.8); MPV 9.2 fL (7.6-11.3)
[2021-06-18] MEDS: CALCITROL 0.25 MCG CAP PO SCH (08:34)
[2021-06-18] MEDS: cloNIDine HCL 0.1 MG TAB PO SCH ×3 (08:34→21:11)
[2021-06-18] MEDS: THIAMINE HCL 100 MG TABLET PO SCH (08:34)
[2021-06-18] MEDS: CALCIUM CARBONATE 500 MG TAB PO SCH (08:34)
[2021-06-18] MEDS: MULTIVITAMINS,THERAPEUT 1 TAB PO SCH (08:34)
[2021-06-18] MEDS: metroNIDAZOLE 500 MG TABLET PO SCH ×3 (08:34→21:10)
[2021-06-18] MEDS: SERTRALINE HCL 50 MG TAB PO SCH (08:35)
[2021-06-18] MEDS: lisinopriL 20 MG TAB PO SCH ×2 (08:35→21:10)
[2021-06-18] MEDS: VITAMIN D 1000 UNIT TAB PO SCH (08:35)
[2021-06-18] MEDS: FOLIC ACID 1 MG TABLET PO SCH (08:35)
[2021-06-18] MEDS: FAMOTIDINE 20 MG TAB PO SCH (08:35)
[2021-06-18] MEDS: predniSONE 20 MG TAB PO SCH (08:35)
[2021-06-18] MEDS: CHOLESTYRAMINE/ASP 4 GM/PKT PO SCH ×2 (08:36→16:42)
[2021-06-18] MEDS: HYDRALAZINE HCL 25 MG TABLET PO SCH ×3 (08:36→21:10)
[2021-06-18] MEDS: NEPRO SHAKE 237 ML CAN PO SCH ×2 (08:37→21:00)
[2021-06-18 09:36] LABS: Anisocytosis 1+; Blood Morphology Comment NOTED (NOT SEEN); Platelet Estimate DECR; Poikilocytosis 1+; White Blood Cell Scan 0 (OK)
[2021-06-18 09:37] LABS: Ovalocytes 1+
[2021-06-18 12:03] LABS: Hematocrit 30.3 % (39.6-49.0)
[2021-06-18] MEDS: ATORVASTATIN 10 MG TAB PO SCH (21:10)
[2021-06-18] MEDS ORDERED: SODIUM PHOSPHATE 20 MM in NA CHLORIDE 0.9% 250 ML IV SCH (22:00)
[2021-06-18] MEDS ORDERED: SODIUM PHOSPHATE 20 MM in NA CHLORIDE 0.9% 250 ML IV ONE (22:48)
[2021-06-18] MEDS ORDERED: POTASSIUM PHOS IN 0.9 % NACL 0 MMOL/0 ML BAG IV ONE (23:25)
--- NOTE | 2021-06-19 05:58 | P.PN ---
Subjective Date of Service: 06/19/21 Primary Care Provider: Dr. Roth; Nephrology-Dr. Mercedes Chief Complaint: Fatigue, low blood pressure Subjective: Doing well Physical Examination - Vital Signs Temperature: 97.3 F Blood Pressure: 187/77 Pulse: 62 Respirations: 14 Pulse Ox (%): 98 - Studies Medications List Reviewed: Yes Assessment & Plan Discharge Plan: Other ([facility]) Plan to discharge in: 24 Hours Physician Review Additional Text: Covid: Negative Chest x-ray: COMPARISON: Abdomen Acute Series dated 10/12/2020; Chest Single View dated 10/11/2020; Chest Single View dated 09/02/2020; Chest Single View dated 11/11/2019 FINDINGS: No evidence of edema or pneumonia. Cardiomegaly.No acute osseous abnormality. No significant pleural effusions or pneumothorax. IMPRESSION: No acute cardiopulmonary disease. Physical Exam: GENERAL: The patient is a well-developed, well-nourished, in no apparent distress. Alert and oriented x3. VITAL SIGNS: Reviewed HEENT: Patient appears better hydrated. NECK: Supple. No carotid bruits. No lymphadenopathy or thyromegaly. LUNGS: Clear to auscultation. No crackles or wheezes are heard. HEART: Regular rate and rhythm, no appreciable gallops, rubs, murmurs or extra heart sounds ABDOMEN: Soft, nontender, and nondistended. Positive bowel sounds. No hepatosplenomegaly was noted. EXTREMITIES: Without any cyanosis, clubbing, rash, lesions or peripheral edema. NEUROLOGIC: The patient is oriented to person, place and time. Strength and sensation are grossly intact. Face is symmetric. Muscle wasting. SKIN: Normal color, turgor and temperature. No ulcerations or rashes noted. Impression: Fatigue secondary to hypotension with history of hypertension Chronic diarrhea with lactose intolerance complicated with Ileus End-stage renal disease on hemodialysis Diabetes mellitus type 2 History of CVA GERD PVD Depression History of prostate cancer Plan: Fatigue secondary to hypotension with history of hypertension: Patient doing well at this time. Continue with physical therapy. Continue prednisone, Flagyl. Awaiting approval from [facility]. This was discussed in detail and at length with case management, social worker delinquency prevention and nephrology. It appears that dialysis was approved at the [facility] but now social worker delinquency prevention mentions that patient is out of network. baking factory worker spoke to the family and they want to pursue the [place] facility. Await further recommendations from social work nurse. Will have nephrology address with dialysis center in [place] to see if they can help expedite this. Otherwise continue with current plan of care and await for approval. I will turn the service over to the hospitalist team tomorrow. I will go over plan of care with him. Chronic diarrhea with lactose intolerance complicated with Ileus: Ileus resolved. Continue with medication. Continue cholestyramine, prednisone, Flagyl. Patient also on Imodium as needed. End-stage renal disease on hemodialysis: Continue with dialysis every Sunday, Sunday and Sunday. Discussed in detail with nephrology. Diabetes mellitus type 2: Oral intake encouraged. Continue Nepro s upplementation 3 times a day. Dietary consult to evaluate daily needs. History of CVA: Continue with Lipitor GERD: Continue Pepcid PVD: Continue home medication Depression: Continue with medicationZoloft History of prostate cancer: Overall stable Code Status: Patient is DNR DVT prophylaxis: Heparin Advanced Care Planning-30 minutes: Skilled placement facility Time Spent Managing Pts Care (In Minutes): 55
[2021-06-19 06:58] LABS: Albumin 2.3 g/dL (3.4-5.0); Phosphorus 2.5 mg/dL (2.5-4.9); Potassium 4.2 mmol/L (3.5-5.1)
--- NOTE | 2021-06-19 07:04 | P.PN ---
Subjective Date of Service: 06/19/21 Primary Care Provider: Dr. Roth; Nephrology-Dr. Mercedes Chief Complaint: Fatigue, low blood pressure Received HD yesterday. Physical Examination - Vital Signs Temperature: 97.3 F Blood Pressure: 140/80 Pulse: 62 Respirations: 14 Pulse Ox (%): 98 - Physical Exam General: In no apparent distress HEENT: Atraumatic, Normocephalic Neck: Supple, JVD not distended Respiratory: Clear to auscultation bilaterally Cardiovascular: No rubs, No murmurs Gastrointestinal: Soft and benign, Non-distended Musculoskeletal: No clubbing Integumentary: No warmth Neurological: Normal tone Lymphatics: No axilla or inguinal lymphadenopathy Urinary: Other (no bladder distention) External genitalia: Deferred Rectal: Deferred - Studies Medications List Reviewed: Yes Assessment And Plan - Plan # ESRD on HD TTS at [facility] History of prostate cancer HD received yesterday No acute indication for HD today HD access: LFA AVF EDW 73 kgs Renal and DM diet Monitor renal panel # Htn BP above: Clonidine increased to 0.2 mg by mouth 3 times a day # ? Melena H/H stable, monitor # Hypophosphatemia PO repletion ordered # Hypocalcemia Mild Monitor # Chronic intermittent diarrhea History of lactose intolerance Stool c diff testing & stool cx neg F/u stool GI PCR & plasma CMV PCR Lactose free diet On prednisone, Flagyl, cholestyramine # Anemia of chronic disease Monitor H/H # Renal osteodystrophy Monitor Ca & Phos # DM 2 Mngt per primary team # Debility, Hx of CVA PT/OT # Dispo Awaiting dc to SNF Physician Review: Patient Assessed, Agree with Above Assessment and Plan
[2021-06-19 07:09] LABS: Phosphorus 2.6 mg/dL (2.5-4.9)
[2021-06-19 07:20] LABS: Magnesium 1.9 mg/dL (1.8-2.4)
[2021-06-19] MEDS: INSULIN -REGULAR HUMAN 50 UNIT/0.5 ML ML SQ SCH ×4 (07:30→21:00)
[2021-06-19] MEDS: HYDRALAZINE HCL 25 MG TABLET PO SCH ×3 (08:15→21:21)
[2021-06-19] MEDS: FAMOTIDINE 20 MG TAB PO SCH (08:15)
[2021-06-19] MEDS: lisinopriL 20 MG TAB PO SCH ×2 (08:16→21:21)
[2021-06-19] MEDS: VITAMIN D 1000 UNIT TAB PO SCH (08:16)
[2021-06-19] MEDS: THIAMINE HCL 100 MG TABLET PO SCH (08:16)
[2021-06-19] MEDS: FOLIC ACID 1 MG TABLET PO SCH (08:16)
[2021-06-19] MEDS: CALCITROL 0.25 MCG CAP PO SCH (08:16)
[2021-06-19] MEDS: MULTIVITAMINS,THERAPEUT 1 TAB PO SCH (08:16)
[2021-06-19] MEDS: predniSONE 20 MG TAB PO SCH (08:16)
[2021-06-19] MEDS: CALCIUM CARBONATE 500 MG TAB PO SCH (08:16)
[2021-06-19] MEDS: metroNIDAZOLE 500 MG TABLET PO SCH ×3 (08:16→21:22)
[2021-06-19] MEDS: cloNIDine HCL 0.1 MG TAB PO SCH ×3 (08:17→21:22)
[2021-06-19] MEDS: CHOLESTYRAMINE/ASP 4 GM/PKT PO SCH ×2 (08:19→16:33)
[2021-06-19] MEDS: SERTRALINE HCL 50 MG TAB PO SCH (08:19)
[2021-06-19] MEDS: NEPRO SHAKE 237 ML CAN PO SCH ×2 (08:22→21:00)
[2021-06-19 11:33] LABS: Absolute Lymphocytes (CBC) 0.8 K/uL (0.7-4.9); Basophils % 0.5 % (0-1.3); Hematocrit 29.1 % (39.6-49.0); Lymphocytes % 11.8 % (15.3-44.8); MPV 9.8 fL (7.6-11.3)
[2021-06-19 12:24] LABS: Anisocytosis SLIGHT; Blood Morphology Comment NOTED (NOT SEEN); Hypochromasia 1+; Platelet Estimate DECR; Poikilocytosis SLIGHT; White Blood Cell Scan OK (OK)
[2021-06-19] MEDS: ATORVASTATIN 10 MG TAB PO SCH (21:22)
[2021-06-20] MEDS ORDERED: POTASS/SODIUM PHOSPHATE 1 PKT POWD.PACK PO ONE (06:00)
[2021-06-20] MEDS: HYDRALAZINE HCL 20 MG/ML VIAL IV PRN (06:49)
[2021-06-20 06:51] LABS: Absolute Lymphocytes (CBC) 1.8 K/uL (0.7-4.9); Basophils % 0.3 % (0-1.3); Hematocrit 27.9 % (39.6-49.0); Lymphocytes % 21.5 % (15.3-44.8); MPV 9.1 fL (7.6-11.3); RBC Red Blood Cell Count 3.65 M/uL (4.33-5.43)
[2021-06-20 07:16] LABS: Albumin 2.4 g/dL (3.4-5.0); Potassium 4.7 mmol/L (3.5-5.1)
[2021-06-20] MEDS: INSULIN -REGULAR HUMAN 50 UNIT/0.5 ML ML SQ SCH ×4 (07:30→20:49)
[2021-06-20] MEDS: cloNIDine HCL 0.1 MG TAB PO SCH ×3 (09:00→20:50)
[2021-06-20] MEDS: NEPRO SHAKE 237 ML CAN PO SCH ×2 (09:00→20:51)
[2021-06-20 09:12] LABS: Anisocytosis 1+; Blood Morphology Comment NOTED (NOT SEEN); Platelet Estimate DECR; Poikilocytosis SLIGHT; White Blood Cell Scan OK (OK)
[2021-06-20 09:13] LABS: Ovalocytes 1+
[2021-06-20] MEDS: lisinopriL 20 MG TAB PO SCH ×2 (10:08→20:50)
[2021-06-20] MEDS: CHOLESTYRAMINE/ASP 4 GM/PKT PO SCH ×2 (10:08→17:00)
[2021-06-20] MEDS: HYDRALAZINE HCL 25 MG TABLET PO SCH ×3 (10:08→20:49)
[2021-06-20] MEDS: metroNIDAZOLE 500 MG TABLET PO SCH ×3 (10:08→20:50)
[2021-06-20] MEDS: MULTIVITAMINS,THERAPEUT 1 TAB PO SCH (10:08)
[2021-06-20] MEDS: predniSONE 20 MG TAB PO SCH (10:08)
[2021-06-20] MEDS: FOLIC ACID 1 MG TABLET PO SCH (10:09)
[2021-06-20] MEDS: SERTRALINE HCL 50 MG TAB PO SCH (10:09)
[2021-06-20] MEDS: FAMOTIDINE 20 MG TAB PO SCH (10:14)
[2021-06-20] MEDS: CALCIUM CARBONATE 500 MG TAB PO SCH (10:14)
[2021-06-20] MEDS: LOPERAMIDE HCL 2 MG CAPSULE PO PRN (10:14)
[2021-06-20] MEDS: THIAMINE HCL 100 MG TABLET PO SCH (10:14)
[2021-06-20] MEDS: VITAMIN D 1000 UNIT TAB PO SCH (10:14)
[2021-06-20] MEDS: CALCITROL 0.25 MCG CAP PO SCH (10:15)
--- NOTE | 2021-06-20 16:57 | P.PN ---
Subjective Date of Service: 06/20/21 Primary Care Provider: Dr. Roth; Nephrology-Dr. Mercedes Chief Complaint: Fatigue, low blood pressure Subjective: No new changes, Improving, Working w/ PT <Deanna Garcia - Last Filed: 06/20/21 16:52> Date of Service: 06/20/21 <Deshawn Rojas Thais - Last Filed: 06/25/21 06:22> Review of Systems General: Weakness Eyes: Unremarkable ENT: Unremarkable Respiratory: Unremarkable Cardiovascular: Unremarkable Gastrointestinal: Unremarkable Genitourinary: Unremarkable Musculoskeletal: Unremarkable Integumentary: Unremarkable Neurological: Weakness Lymphatics: Unremarkable <Deanna Garcia - Last Filed: 06/20/21 16:52> Physical Examination - Vital Signs Temperature: 97 F Blood Pressure: 112/56 Pulse: 53 Respirations: 15 Pulse Ox (%): 100 - Physical Exam General: Alert, In no apparent distress, Oriented x3 HEENT: Atraumatic, PERRLA, EOMI Neck: Supple, JVD not distended Respiratory: Clear to auscultation bilaterally, Normal air movement Cardiovascular: No edema, Regular rate/rhythm, Normal S1 S2 Capillary refill: <2 Seconds Gastrointestinal: Normal bowel sounds, No tenderness Musculoskeletal: No tenderness Integumentary: No rashes Neurological: Normal speech, Normal tone, Normal affect Lymphatics: No axilla or inguinal lymphadenopathy Urinary: Dialysis catheter External genitalia: Deferred Rectal: Deferred - Studies Medications List Reviewed: Yes <Deanna Garcia - Last Filed: 06/20/21 16:52> Assessment And Plan - Plan --Fatigue secondary to hypotension with history of hypertension: Patient doing well at this time. Continue with physical therapy. Continue prednisone, Flagyl. Awaiting approval from [facility]. This was discussed in detail and at length with case management, social worker clinical and nephrology. It appears that dialysis was approved at the [place] facility but now social worker clinical mentions that patient is out of network. forest nursery worker spoke to the family and they want to pursue the [place] facility. Await further recommendations from older adult social work specialist. Will have nephrology address with dialysis center in [place] to see if they can help expedite this. Otherwise continue with current plan of care and await for approval. --Chronic diarrhea with lactose intolerance complicated with Ileus: Ileus resolved. Continue with medication. Continue cholestyramine, prednisone, Flagyl. Patient also on Imodium as needed. -End-stage renal disease on hemodialysis: Continue with dialysis every Sunday, Sunday and Sunday. Discussed in detail with nephrology. --Diabetes mellitus type 2: Oral intake encouraged. Continue Nepro supplementation 3 times a day. Dietary consult to evaluate daily needs. --History of CVA: Continue Aspirin and Lipitor --GERD: Continue Pepcid --PVD: Continue home medication --Depression: Continue with medicationZoloft --History of prostate cancer: Overall stable Code Status: Patient is DNR DVT prophylaxis: Heparin Advanced Care Planning-30 minutes: Skilled placement facility Discharge Plan: Other (SNF) Plan to discharge in: 24 Hours - Code Status/Comfort Care Code Status Assessed: Yes Code Status: Full Code Physician Review: Patient Assessed, Agree with Above Assessment and Plan <Deanna Garcia - Last Filed: 06/20/21 16:52> - Current Problems (Diagnosis) (1) Diarrhea Current Visit: Yes Status: Acute (2) Diastolic heart failure Current Visit: No Status: Acute Qualifiers: Heart failure chronicity: acute on chronic Qualified Code(s): I50.33 - Acute on chronic diastolic (congestive) heart failure (3) ESRD (end stage renal disease) on dialysis Current Visit: No Status: Acute (4) Essential hypertension Current Visit: No Status: Chronic (5) Type 2 diabetes mellitus Current Visit: No Status: Chronic Qualifiers: Diabetes mellitus extermination inspector insulin use: with group home use Diabetes m ellitus complication status: with kidney complications Diabetes mellitus complication detail: with chronic kidney disease Chronic kidney disease stage: on chronic dialysis Qualified Code(s): E11.22 - Type 2 diabetes mellitus with diabetic chronic kidney disease; N18.6 - End stage renal disease; Z79.4 - marine oil terminal superintendent (current) use of insulin; Z99.2 - Dependence on renal dialysis <Deshawn Rojas - Last Filed: 06/25/21 06:22> Date of Service: 06/20/21 Subjective Agree with current plan of care as mentioned above Review of Systems 10-point ROS is otherwise unremarkable Physical Examination - Vital Signs Reviewed - Physical Exam General: Alert, In no apparent distress, Oriented x3 Respiratory: Clear to auscultation bilaterally, Normal air movement Cardiovascular: Regular rate/rhythm, Normal S1 S2, No murmurs Gastrointestinal: Normal bowel sounds, Soft and benign, Non-distended, No tenderness Musculoskeletal: No clubbing, No swelling, No tenderness Assessment & Plan - Problems (Diagnosis) (1) Diarrhea/rule out small bowel or colonic obstruction/? Mobile's syndrome Current Visit: Yes Status: Acute (2) Diastolic heart failure Current Visit: No Status: Acute Qualifiers: Heart failure chronicity: acute on chronic Qualified Code(s): I50.33 - Acute on chronic diastolic (congestive) heart failure (3) ESRD (end stage renal disease) on dialysis Current Visit: No Status: Acute (4) Essential hypertension Current Visit: No Status: Chronic (5) Type 2 diabetes mellitus Current Visit: No Status: Chronic Qualifiers: Diabetes mellitus group home insulin use: with group home use Diabetes mellitus complication status: with kidney complications Diabetes mellitus complication detail: with chronic kidney disease Chronic kidney disease stage: on chronic dialysis Qualified Code(s): E11.22 - Type 2 diabetes mellitus with diabetic chronic kidney disease; N18.6 - End stage renal disease; Z79.4 - marine oil terminal superintendent (current) use of insulin; Z99.2 - Dependence on renal dialysis Plan: 1. Continue with plan of care as discussed above <Deshawn Rojas - Last Filed: 06/25/21 06:22>
[2021-06-20] MEDS: ATORVASTATIN 10 MG TAB PO SCH (20:50)
--- NOTE | 2021-06-20 23:10 | PN ---
Date of Progress Note: 06/20/2021 Chief Complaint: End-stage renal disease, generalized weakness, fatigue, deconditioning. History Of Present Illness: The patient is undergoing dialysis 3 times per week on Sunday, , and Sunday. Dialysis is scheduled for tomorrow. The patient is asymptomatic today. He denies P ND or orthopnea. Physical Examination: Lungs: Clear to auscultation bilaterally. Heart: S1, S2. Abdomen: Soft, benign. Extremities: No edema. Impression And Plan: 1.End-stage renal disease. Continue dialysis with ultrafiltration. Next treatment tomorrow. 2.History of prostate cancer. Follow up with Urology. 3.No acute indication for dialysis today. The patient is asymptomatic. Electrolytes stable. There is no fluid overload. 4.Diabetes mellitus with renal manifestation. Continue renal diet and diabetic diet. 5.Hypertension. Blood pressure is fluctuating. The patient was started on clonidine and the dose w as increased to 0.2 three times per day. 6.Anemia, acute on chronic. Monitor hemoglobin level and plan transfusion. Continue LUDWIG for anemia due to chronic kidney disease. 7.Hypocalcemia and mild hypophosphatemia. P.o. replacement was ordered. SYLVIA/DEONTE Voice ID: [id number] Report ID: [id number]
[2021-06-21] MEDS: HYDRALAZINE HCL 20 MG/ML VIAL IV PRN (03:07)
[2021-06-21 05:27] LABS: Urine Appearance CLEAR (Clear); Urine Bilirubin NEGATIVE (Negative); Urine Blood NEGATIVE (Negative); Urine Color DK YELLOW (Yellow); Urine Glucose NEGATIVE (Negative); Urine Protein 1+ (Negative); Urine Urobilinogen 0.2 mg/dL (0.2-1.0)
[2021-06-21 05:29] LABS: Urine Microscopic Reflex ORDER UMIC
[2021-06-21 05:41] LABS: Urine Bacteria <20 /HPF (NONE SEEN); Urine RBC NONE SEEN /HPF (NONE SEEN); Urine Urothelial Cells <5 /HPF (NONE SEEN)
[2021-06-21 05:42] LABS: Urine Yeast PRESENT (NONE SEEN)
[2021-06-21] MEDS: INSULIN -REGULAR HUMAN 50 UNIT/0.5 ML ML SQ SCH ×4 (07:30→21:00)
[2021-06-21] MEDS: NEPRO SHAKE 237 ML CAN PO SCH ×2 (09:00→21:00)
[2021-06-21] MEDS: MULTIVITAMINS,THERAPEUT 1 TAB PO SCH (09:20)
[2021-06-21] MEDS: CHOLESTYRAMINE/ASP 4 GM/PKT PO SCH ×2 (09:20→17:00)
[2021-06-21] MEDS: CALCIUM CARBONATE 500 MG TAB PO SCH (09:20)
[2021-06-21] MEDS: VITAMIN D 1000 UNIT TAB PO SCH (09:20)
[2021-06-21] MEDS: ASPIRIN 81 MG CHEWABLE TABLET PO SCH (09:20)
[2021-06-21] MEDS: lisinopriL 20 MG TAB PO SCH (09:21)
[2021-06-21] MEDS: CALCITROL 0.25 MCG CAP PO SCH (09:21)
[2021-06-21] MEDS: FAMOTIDINE 20 MG TAB PO SCH (09:21)
[2021-06-21] MEDS: cloNIDine HCL 0.1 MG TAB PO SCH (09:21)
[2021-06-21] MEDS: THIAMINE HCL 100 MG TABLET PO SCH (09:21)
[2021-06-21] MEDS: metroNIDAZOLE 500 MG TABLET PO SCH ×3 (09:22→21:42)
[2021-06-21] MEDS: SERTRALINE HCL 50 MG TAB PO SCH (09:22)
[2021-06-21] MEDS: predniSONE 20 MG TAB PO SCH (09:22)
[2021-06-21] MEDS: FOLIC ACID 1 MG TABLET PO SCH (09:22)
[2021-06-21] MEDS: HYDRALAZINE HCL 25 MG TABLET PO SCH ×4 (09:23→21:43)
[2021-06-21] MEDS: CLONIDINE HCL 0.3 MG TAB PO SCH ×2 (14:00→21:00)
--- NOTE | 2021-06-21 15:35 | PN ---
Date of Progress Note: 06/19/2021 Subjective: The patient doing well. Started ambulating. Still has some diarrhea. Physical Examination: Vital Signs: Blood pressure 185/77, pulse of 53, afebrile. Chest: Clear to auscultation. Heart: S1, S2. Regular. Abdomen: Soft, nontender. Extremity: Venous stasis change. Trace edema. Neuro: Alert. No focality. Laboratory Data: H and H 9.2/27.9. Sodium 133, potassium 4.7, bicarb 24, BUN 16, creatinine 4.7, calcium 7.8, phosphorus 2. Assessment And Plan: 1. End-stage renal disease. We will continue the patient on dialysis TTS. The patient is scheduled for dialysis today. The patient is going to be dialyzed on high potassium bath given the presence of hypokalemia. 2. Hypertension, not controlled. We will continue current medication. We will increase clonidine to 0.3 for better blood pressure control and we will follow up given that blood pressure started being worsening after adding lisinopril. I am going to back up on the lisinopril for now and we will hold it. 3. Hypokalemia. The patient is going to be dialyzed on high potassium bath. 4. Deconditioning. Continue PT, OT. 5. Diarrhea as by primary. 6. Secondary hyperparathyroidism. We will start the patient back on Renvela and we will follow up the patient. 7. Anemia of chronic kidney disease. Continue LUDWIG. time spend exam the patient face to face placing order , reviewing data , discussed the case with nursing staff, other team care including samm 45 min LISSA Voice ID: [id number] Report ID: [id number] ELAINE
[2021-06-21] MEDS: SEVELAMER CARBONATE 800 MG TABLET PO SCH (17:00)
[2021-06-21 17:34] LABS: Potassium 5.5 mmol/L (3.5-5.1)
[2021-06-21 17:38] LABS: Absolute Lymphocytes (CBC) 0.8 K/uL (0.7-4.9); Basophils % 0.1 % (0-1.3); Hematocrit 30.5 % (39.6-49.0); MPV 8.7 fL (7.6-11.3); RBC Red Blood Cell Count 4.01 M/uL (4.33-5.43)
[2021-06-21 18:15] LABS: Blood Morphology Comment NOT SEEN (NOT SEEN); Platelet Estimate DECR; White Blood Cell Scan OK (OK)
[2021-06-21] MEDS: ATORVASTATIN 10 MG TAB PO SCH (21:42)
[2021-06-22] MEDS: INSULIN -REGULAR HUMAN 50 UNIT/0.5 ML ML SQ SCH ×4 (07:30→21:00)
[2021-06-22] MEDS: NEPRO SHAKE 237 ML CAN PO SCH ×2 (09:00→21:18)
[2021-06-22] MEDS: CALCIUM CARBONATE 500 MG TAB PO SCH (09:45)
[2021-06-22] MEDS: VITAMIN D 1000 UNIT TAB PO SCH (09:45)
[2021-06-22] MEDS: ASPIRIN 81 MG CHEWABLE TABLET PO SCH (09:45)
[2021-06-22] MEDS: SEVELAMER CARBONATE 800 MG TABLET PO SCH ×3 (09:45→17:47)
[2021-06-22] MEDS: FAMOTIDINE 20 MG TAB PO SCH (09:45)
[2021-06-22] MEDS: MULTIVITAMINS,THERAPEUT 1 TAB PO SCH (09:45)
[2021-06-22] MEDS: CHOLESTYRAMINE/ASP 4 GM/PKT PO SCH ×2 (09:45→17:47)
[2021-06-22] MEDS: metroNIDAZOLE 500 MG TABLET PO SCH ×3 (09:45→21:17)
[2021-06-22] MEDS: FOLIC ACID 1 MG TABLET PO SCH (09:46)
[2021-06-22] MEDS: CALCITROL 0.25 MCG CAP PO SCH (09:46)
[2021-06-22] MEDS: THIAMINE HCL 100 MG TABLET PO SCH (09:46)
[2021-06-22] MEDS: SERTRALINE HCL 50 MG TAB PO SCH (09:46)
[2021-06-22] MEDS: CLONIDINE HCL 0.3 MG TAB PO SCH ×3 (09:46→21:16)
[2021-06-22] MEDS: HYDRALAZINE HCL 25 MG TABLET PO SCH ×3 (09:47→21:15)
[2021-06-22] MEDS: predniSONE 20 MG TAB PO SCH (09:47)
--- NOTE | 2021-06-22 12:48 | PN ---
Date of Progress Note: 06/22/2021 Subjective: The patient was admitted with gastroenteritis, deconditioning. The patient has been on dialysis, status post dialysis yesterday, tolerated the dialysis very well. Blood pressure better co ntrolled today. Blood pressure down to 120. Objective: Vital Signs: Blood pressure 150/67, pulse of 67, afebrile. Chest: Clear to auscultation. Heart: S1, S2. Regular. Abdomen: Soft, nontender. Extremities: Venous stasis changes bilateral. Neuro: Alert. No focality. Laboratory Data: H and H 09/10.5. Sodium 127, potassium 5.5, bicarb 23, BUN 22, creatinine of 5, ca lcium 7.5. This is pre-dialysis. Current Medications: The patient on include; 1.Aspirin. 2.Flagyl 500 t.i.d. 3.Calcium carbonate. 4.Cholestyramine. 5.Clonidine 0.3 t.i.d. 6.Hydralazine 100 t.i.d. 7.Zoloft. 8.Renvela. 9.Pepcid. 10.Zofran. 11.Prednisone. 12.Calcitriol. Assessment And Plan: 1.End-stage renal disease. We will continue the patient on dialysis TTS. The patient is scheduled for dialysis tomorrow. The patient is going to be dialyzed on high potassium bath given the recurren t of hypokalemia. 2.Hyperkalemia, corrected with dialysis. 3.Hyponatremia, corrected with dialysis. 4.Hypertension. Yesterday, we discontinued lisinopril, increased clonidine. The blood pressure muc h well controlled currently. We will continue current regimen and we will follow up. 5.Gastroenteritis. Continue current antibiotic. 6.Deconditioning. Continue PT/OT. The patient awaiting for placement. ELEONORA/DEONTE Voice ID: [id number] Report ID: [id number]
--- NOTE | 2021-06-22 14:48 | P.PN ---
Subjective Date of Service: 06/21/21 Awaiting dialysis placement in [place]. Otherwise no new complaints Review of Systems 10-point ROS is otherwise unremarkable Physical Examination - Vital Signs Temperature: 97.3 F Blood Pressure: 139/59 Pulse: 57 Respirations: 16 Pulse Ox (%): 100 - Physical Exam General: Alert, In no apparent distress, Oriented x3 Respiratory: Clear to auscultation bilaterally, Normal air movement Cardiovascular: Regular rate/rhythm, Normal S1 S2 Gastrointestinal: Normal bowel sounds, No tenderness Musculoskeletal: No tenderness Integumentary: No rashes Neurological: Normal speech, Normal tone, Normal affect Lymphatics: No axilla or inguinal lymphadenopathy - Studies Medications List Reviewed: Yes Assessment & Plan - Problems (Diagnosis) (1) Diarrhea Current Visit: Yes Status: Acute (2) Diastolic heart failure Current Visit: No Status: Acute Qualifiers: Heart failure chronicity: acute on chronic Qualified Code(s): I50.33 - Acute on chronic diastolic (congestive) heart failure (3) ESRD (end stage renal disease) on dialysis Current Visit: No Status: Acute (4) Essential hypertension Current Visit: No Status: Chronic (5) Type 2 diabetes mellitus Current Visit: No Status: Chronic Qualifiers: Diabetes mellitus adjunct faculty for medical terminology insulin use: with halfway use Diabetes mellitus complication status: with kidney complications Diabetes mellitus complication detail: with chronic kidney disease Chronic kidney disease stage: on chronic dialysis Qualified Code(s): E11.22 - Type 2 diabetes mellitus with diabetic chronic kidney disease; N18.6 - End stage renal disease; Z79.4 - custodial (current) use of insulin; Z99.2 - Dependence on renal dialysis - Plan awaiting [facility] a [facility] in [place], [place]. However, we need dialysis arranged in [place], [place] before discharging. Otherwise, clinically doing well and working better with therapy - Advance Directives Does patient have a Living Will: Yes Does patient have a Durable POA for Healthcare: Yes - Code Status/Comfort Care Code Status: Full Code Physician Review: Patient Assessed, Agree with Above Assessment and Plan
[2021-06-22] MEDS: ATORVASTATIN 10 MG TAB PO SCH (21:17)
--- NOTE | 2021-06-23 03:26 | P.PN ---
Date of Service: 06/22/21 Subjective Patient doing well with no new complaints. Clinically No complaints. Stable. Awaiting transfer Review of Systems 10-point ROS is otherwise unremarkable Physical Examination - Vital Signs Reviewed - Physical Exam General: Alert, In no apparent distress, Oriented x3 Respiratory: Clear to auscultation bilaterally, Normal air movement Cardiovascular: Regular rate/rhythm, Normal S1 S2, No murmurs Gastrointestinal: Normal bowel sounds, Soft and benign, Non-distended, No tenderness Musculoskeletal: No clubbing, No swelling, No tenderness Assessment & Plan - Problems (Diagnosis) (1) Diarrhea/rule out small bowel or colonic obstruction Current Visit: Yes Status: Acute (2) Diastolic heart failure Current Visit: No Status: Acute Qualifiers: Heart failure chronicity: acute on chronic Qualified Code(s): I50.33 - Acute on chronic diastolic (congestive) heart failure (3) ESRD (end stage renal disease) on dialysis Current Visit: No Status: Acute (4) Essential hypertension Current Visit: No Status: Chronic (5) Type 2 diabetes mellitus Current Visit: No Status: Chronic Qualifiers: Diabetes mellitus senior care insulin use: with senior care use Diabetes mellitus complication status: with kidney complications Diabetes mellitus complication detail: with chronic kidney disease Chronic kidney disease stage: on chronic dialysis Qualified Code(s): E11.22 - Type 2 diabetes mellitus with diabetic chronic kidney disease; N18.6 - End stage renal disease; 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 Diet as tolerated 2. Oral antibiotic 3. GI recommending outpatient colonoscopy. 4. Change to oral prednisone; outpatient colonoscopy per GI, Dr. Han 5. Hemodialysis per Nephrology; 6. halfway facility placement. Referral to SNF in [place] excepted awaiting for hemodialysis facility 7. GI and DVT prophylaxis
[2021-06-23] MEDS: INSULIN -REGULAR HUMAN 50 UNIT/0.5 ML ML SQ SCH ×4 (07:30→21:00)
[2021-06-23] MEDS: CHOLESTYRAMINE/ASP 4 GM/PKT PO SCH ×2 (08:23→17:04)
[2021-06-23] MEDS: MULTIVITAMINS,THERAPEUT 1 TAB PO SCH (08:24)
[2021-06-23] MEDS: FOLIC ACID 1 MG TABLET PO SCH (08:24)
[2021-06-23] MEDS: FAMOTIDINE 20 MG TAB PO SCH (08:24)
[2021-06-23] MEDS: metroNIDAZOLE 500 MG TABLET PO SCH ×3 (08:24→21:08)
[2021-06-23] MEDS: SERTRALINE HCL 50 MG TAB PO SCH (08:24)
[2021-06-23] MEDS: VITAMIN D 1000 UNIT TAB PO SCH (08:24)
[2021-06-23] MEDS: THIAMINE HCL 100 MG TABLET PO SCH (08:24)
[2021-06-23] MEDS: SEVELAMER CARBONATE 800 MG TABLET PO SCH ×3 (08:24→17:04)
[2021-06-23] MEDS: predniSONE 20 MG TAB PO SCH (08:24)
[2021-06-23] MEDS: ASPIRIN 81 MG CHEWABLE TABLET PO SCH (08:24)
[2021-06-23] MEDS: CALCIUM CARBONATE 500 MG TAB PO SCH (08:24)
[2021-06-23] MEDS: CALCITROL 0.25 MCG CAP PO SCH (08:24)
[2021-06-23] MEDS: CLONIDINE HCL 0.3 MG TAB PO SCH (08:25)
[2021-06-23] MEDS: NEPRO SHAKE 237 ML CAN PO SCH ×2 (08:25→21:10)
[2021-06-23] MEDS: HYDRALAZINE HCL 25 MG TABLET PO SCH ×3 (08:26→21:09)
[2021-06-23] MEDS ORDERED: ALBUMIN HUMAN 25% 50 ML IV ONE (10:07)
--- NOTE | 2021-06-23 14:43 | PN ---
Date of Progress Note: 06/23/2021 Subjective: The patient was admitted with colitis, deconditioning. The patient has been on treatmen t. Diarrhea has been improved. The patient today on dialysis developed low blood pressure. Physical Examination: Vital Signs: When I saw the patient; blood pressure of 161/69, pulse of 51, afebrile. Chest: Clear to auscultation. Heart: S1, S2. Regular. Abdomen: Soft, nontender. Extremities: Venous stasis change bilateral. Laboratory Data: WBC 6.7, H and H 1030.5. Sodium 127, potassium 5.5, bicarb 23, BUN 22, creatinine 5, calcium 7.5. Current Medications: Clonidine 0.3 t.i.d., calcium carbonate, atorvastatin, hydralazine 100 t.i.d., Zoloft, , Renvela. Assessment And Plan: 1.End-stage renal disease. We will continue the patient on dialysis TTS. 2.Secondary hyperparathyroidism. Continue Renvela. 3.Anemia of chronic kidney disease. We will continue LUDWIG. 4.Colitis, status post treatment. We will follow up with primary. 5.Deconditioning. Continue PT, OT. ELEONORA/DEONTE Voice ID: [id number] Report ID: [id number]
[2021-06-23] MEDS: cloNIDine HCL 0.1 MG TAB PO SCH ×2 (15:19→21:09)
--- NOTE | 2021-06-23 17:19 | PN ---
Date of Progress Note: 06/23/2021 Subjective: The patient seen on dialysis. The patient developed low blood pressure down to the 80. Apparently yesterday, clonidine has been increased to 0.3 t.i.d. Physical Examination: Vital Signs: Blood pressure 87/50, pulse of 100. Chest: Clear to auscultation. Heart: S1, S2. Regular. Systolic murmur. Abdomen: Soft, nontender. Extremities: Venous stasis change Neuro: No focality. Laboratory Data: H and H 09/10.5. Sodium 127, potassium 5.5, bicarb 23, BUN 22, creatinine 5.5. Assessment And Plan: 1.End-stage renal disease with hypotension, intradialytic. Decreased blood flow to 250, give albumi n decreased temperature 35.5, decreased ultrafiltration rate, placing the patient __ every 5-10 minutes. We saw the patient after 30 minutes, blood pressure started trending up, bloo d pressure up to 146/80. The patient is completely asymptomatic. 2.Hyponatremia. The patient is going to be corrected with dialysis. 3.Hyperkalemia. Going to be corrected with dialysis. Please see previous note for the daily recomm endation. ELEONORA/DEONTE Voice ID: [id number] Report ID: [id number]
[2021-06-23] MEDS: ATORVASTATIN 10 MG TAB PO SCH (21:09)
[2021-06-24 07:15] LABS: Albumin 2.5 g/dL (3.4-5.0); Phosphorus 1.6 mg/dL (2.5-4.9)
[2021-06-24] MEDS: INSULIN -REGULAR HUMAN 50 UNIT/0.5 ML ML SQ SCH ×4 (07:30→21:00)
[2021-06-24] MEDS: NEPRO SHAKE 237 ML CAN PO SCH ×2 (09:00→20:43)
[2021-06-24] MEDS: CHOLESTYRAMINE/ASP 4 GM/PKT PO SCH ×2 (10:37→16:59)
[2021-06-24] MEDS: SEVELAMER CARBONATE 800 MG TABLET PO SCH ×3 (10:37→16:59)
[2021-06-24] MEDS: HYDRALAZINE HCL 25 MG TABLET PO SCH ×3 (10:38→20:42)
[2021-06-24] MEDS: FAMOTIDINE 20 MG TAB PO SCH (10:38)
[2021-06-24] MEDS: MULTIVITAMINS,THERAPEUT 1 TAB PO SCH (10:38)
[2021-06-24] MEDS: cloNIDine HCL 0.1 MG TAB PO SCH ×3 (10:38→20:42)
[2021-06-24] MEDS: CALCIUM CARBONATE 500 MG TAB PO SCH (10:39)
[2021-06-24] MEDS: CALCITROL 0.25 MCG CAP PO SCH (10:39)
[2021-06-24] MEDS: ASPIRIN 81 MG CHEWABLE TABLET PO SCH (10:39)
[2021-06-24] MEDS: FOLIC ACID 1 MG TABLET PO SCH (10:39)
[2021-06-24] MEDS: predniSONE 20 MG TAB PO SCH (10:39)
[2021-06-24] MEDS: metroNIDAZOLE 500 MG TABLET PO SCH ×3 (10:39→20:41)
[2021-06-24] MEDS: VITAMIN D 1000 UNIT TAB PO SCH (10:39)
[2021-06-24] MEDS: THIAMINE HCL 100 MG TABLET PO SCH (10:40)
[2021-06-24] MEDS: SERTRALINE HCL 50 MG TAB PO SCH (10:40)
--- NOTE | 2021-06-24 10:49 | P.PN ---
Date of Service: 06/23/21 Subjective No new changes; unfortunately, we have still been waiting for transfer Review of Systems 10-point ROS is otherwise unremarkable Physical Examination - Vital Signs Reviewed - Physical Exam General: Alert, In no apparent distress, Oriented x3 Respiratory: Clear to auscultation bilaterally, Normal air movement Cardiovascular: Regular rate/rhythm, Normal S1 S2, No murmurs Gastrointestinal: Normal bowel sounds, Soft and benign, Non-distended, No tenderness Musculoskeletal: No clubbing, No swelling, No tenderness Assessment & Plan - Problems (Diagnosis) (1) Diarrhea/rule out small bowel or colonic obstruction Current Visit: Yes Status: Acute (2) Diastolic heart failure Current Visit: No Status: Acute Qualifiers: Heart failure chronicity: acute on chronic Qualified Code(s): I50.33 - Acute on chronic diastolic (congestive) heart failure (3) ESRD (end stage renal disease) on dialysis Current Visit: No Status: Acute (4) Essential hypertension Current Visit: No Status: Chronic (5) Type 2 diabetes mellitus Current Visit: No Status: Chronic Qualifiers: 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 Continue with renal diet 2. Wean off oral antibiotic therapy 3. GI recommending outpatient colonoscopy. 4. Change to oral prednisone-taper; outpatient colonoscopy per GI, Dr. Han 5. Hemodialysis per Nephrology; 6. residential facility placement. Referral to SNF in [place] excepted awaiting for hemodialysis facility 7. Awaiting placement 8. GI and DVT prophylaxis
[2021-06-24] MEDS: LOPERAMIDE HCL 2 MG CAPSULE PO PRN (15:01)
[2021-06-24] MEDS: ATORVASTATIN 10 MG TAB PO SCH (20:41)
[2021-06-24] MEDS ORDERED: PANTOPRAZOLE 40MG TABLET PO SCH (22:09)
[2021-06-24] MEDS ORDERED: PANTOPRAZOLE 40 MG INJ IVP ONE (22:10)
[2021-06-24] MEDS ORDERED: SODIUM CHLORIDE 0.9% 10ML INJ IV PRN (22:10)
[2021-06-24] MEDS ORDERED: METRONIDAZOLE 250mg IVPB 250 MG/50 ML BAG IV SCH (22:12)
[2021-06-24] MEDS ORDERED: METRONIDAZOLE 500mg IVPB 500 MG/100 ML BAG IV ONE (22:52)
[2021-06-24] MEDS ORDERED: Levofloxacin 750mg IV 750 MG/150 ML BAG IV ONE (23:00)
[2021-06-24 23:16] LABS: Absolute Lymphocytes (CBC) 0.3 K/uL (0.7-4.9); Basophils % 0.1 % (0-1.3); Hematocrit 25.1 % (39.6-49.0); Lymphocytes % 6.4 % (15.3-44.8); MPV 8.8 fL (7.6-11.3); RBC Red Blood Cell Count 3.26 M/uL (4.33-5.43)
[2021-06-24 23:28] LABS: Albumin 2.3 g/dL (3.4-5.0); Bilirubin Total 0.3 mg/dL (0.2-1.0); Potassium 5.1 mmol/L (3.5-5.1); Protein, Total 4.6 g/dL (6.4-8.2)
--- NOTE | 2021-06-25 06:19 | P.PN ---
Date of Service: 06/24/21 Subjective Patient doing well with no new complaints. Tolerating diet. Clinically, he looks to be doing better. Anticipate transfer tomorrow to snf as they have just arrange for dialysis close to the snf where he will be staying Review of Systems 10-point ROS is otherwise unremarkable Physical Examination - Vital Signs Reviewed - Physical Exam General: Alert, In no apparent distress, Oriented x3 Respiratory: Clear to auscultation bilaterally, Normal air movement Cardiovascular: Regular rate/rhythm, Normal S1 S2, No murmurs Gastrointestinal: Normal bowel sounds, Soft and benign, Non-distended, No tenderness Musculoskeletal: No clubbing, No swelling, No tenderness Assessment & Plan - Problems (Diagnosis) (1) Diarrhea/rule out small bowel or colonic obstruction/? 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 Continue with renal diet 2. Dc oral antibiotics over 24-48 hr 3. GI recommending outpatient colonoscopy. 4. Change to oral prednisone-taper; outpatient colonoscopy per GI, Dr. Han 5. Hemodialysis per Nephrology; 6. shelter facility placement. Referral to SNF in [place] excepted awaiting for hemodialysis facility 7. Awaiting placement 8. GI and DVT prophylaxis
[2021-06-25] MEDS: INSULIN -REGULAR HUMAN 50 UNIT/0.5 ML ML SQ SCH ×4 (07:30→20:59)
[2021-06-25 08:05] LABS: Absolute Lymphocytes (CBC) 0.9 K/uL (0.7-4.9); Basophils % 0.2 % (0-1.3); Hematocrit 26.2 % (39.6-49.0); Lymphocytes % 13.6 % (15.3-44.8); MPV 8.9 fL (7.6-11.3); RBC Red Blood Cell Count 3.41 M/uL (4.33-5.43)
[2021-06-25 08:19] LABS: Albumin 2.4 g/dL (3.4-5.0); Bilirubin Total 0.5 mg/dL (0.2-1.0); Potassium 5.4 mmol/L (3.5-5.1); Protein, Total 4.8 g/dL (6.4-8.2)
[2021-06-25 08:22] LABS: Anisocytosis 1+; Blood Morphology Comment NOTED (NOT SEEN); Platelet Estimate DECR; White Blood Cell Scan OK (OK)
[2021-06-25 08:23] LABS: Ovalocytes 1+
[2021-06-25] MEDS: VITAMIN D 1000 UNIT TAB PO SCH (08:45)
[2021-06-25] MEDS: metroNIDAZOLE 500 MG TABLET PO SCH ×3 (08:45→20:56)
[2021-06-25] MEDS: PANTOPRAZOLE 40MG TABLET PO SCH ×2 (08:46→18:04)
[2021-06-25] MEDS: CALCIUM CARBONATE 500 MG TAB PO SCH (08:46)
[2021-06-25] MEDS: SERTRALINE HCL 50 MG TAB PO SCH (08:46)
[2021-06-25] MEDS: cloNIDine HCL 0.1 MG TAB PO SCH ×3 (08:46→20:55)
[2021-06-25] MEDS: CALCITROL 0.25 MCG CAP PO SCH (08:46)
[2021-06-25] MEDS: predniSONE 20 MG TAB PO SCH (08:46)
[2021-06-25] MEDS: THIAMINE HCL 100 MG TABLET PO SCH (08:47)
[2021-06-25] MEDS: ASPIRIN 81 MG CHEWABLE TABLET PO SCH (08:47)
[2021-06-25] MEDS: FAMOTIDINE 20 MG TAB PO SCH (08:48)
[2021-06-25] MEDS: FOLIC ACID 1 MG TABLET PO SCH (08:48)
[2021-06-25] MEDS: HYDRALAZINE HCL 25 MG TABLET PO SCH ×3 (08:48→20:56)
[2021-06-25] MEDS: CHOLESTYRAMINE/ASP 4 GM/PKT PO SCH ×2 (08:48→18:05)
[2021-06-25] MEDS: NEPRO SHAKE 237 ML CAN PO SCH ×2 (08:49→20:56)
[2021-06-25] MEDS: MULTIVITAMINS,THERAPEUT 1 TAB PO SCH (08:50)
--- NOTE | 2021-06-25 09:50 | P.DS ---
Admission Date: 06/03/21 Discharge Date: 06/25/21 Primary Care Provider: Dr. Roth; Nephrology-Dr. Mercedes Disposition: [facility] Discharge Condition: GOOD Reason for Admission: Fatigue, low blood pressure Hospital Course: Fatigue secondary to hypotension with history of hypertension Chronic diarrhea with lactose intolerance complicated with Ileus End-stage renal disease -initiated on hemodialysis Diabetes mellitus type 2 History of CVA GERD PVD Depression History of prostate cancer Hospital course Patient with past medical history of hypertension, diabetes mellitus, progressive kidney disease admitted for chronic diarrhea complicated with ileus. On admission patient was initiated on dialysis. He is currently receiving dialysis 3 times per week. Patient was also noted with GI bleed with positive occult. GI evaluation was done. Patient was initiated on steroids with slow tapering. Patient will be discharged home. Recommended to have colonoscopy as outpatient. He has been discharged to correction at [facility] with outpatient dialysis set up at [facility] Vital Signs/Physical Exam: Temp Pulse Resp BP Pulse Ox 97.4 F 54 18 150/67 H 100 06/25/21 08:00 06/25/21 08:46 06/25/21 08:00 06/25/21 08:46 06/25/21 08:00 General: Alert, In no apparent distress, Oriented x3 HEENT: Atraumatic, Normocephalic, PERRLA Neck: Supple, 2+ carotid pulse no bruit, JVD not distended Respiratory: Clear to auscultation bilaterally, Normal air movement, Diminished Cardiovascular: No edema, Normal pulses, Regular rate/rhythm, Normal S1 S2 Gastrointestinal: Normal bowel sounds, Soft and benign, Non-distended Musculoskeletal: No clubbing, No swelling Integumentary: No rashes, No breakdown, No significant lesion Neurological: Normal gait, Normal speech, Normal strength at 5/5 x4 extr External genitalia: No edema, No lesions Laboratory Data at Discharge: WBC 6.70 K/uL (4.3-10.9) D 06/25/21 07:34 Hgb 8.5 g/dL (13.6-17.9) L 06/25/21 07:34 Hct 26.2 % (39.6-49.0) L 06/25/21 07:34 Plt Count 85 K/uL (152-406) L 06/25/21 07:34 PT 11.8 SECONDS (9.5-12.5) 06/02/21 11:00 INR 1.03 06/02/21 11:00 Sodium 133 mmol/L (136-145) L 06/25/21 07:34 Potassium 5.4 mmol/L (3.5-5.1) H 06/25/21 07:34 BUN 15 mg/dL (7-18) 06/25/21 07:34 Creatinine 4.11 mg/dL (0.55-1.3) H 06/25/21 07:34 Glucose 89 mg/dL (74-106) 06/25/21 07:34 Phosphorus 1.6 mg/dL (2.5-4.9) L 06/24/21 06:07 Magnesium 1.9 mg/dL (1.8-2.4) 06/19/21 06:31 Total Bilirubin 0.5 mg/dL (0.2-1.0) 06/25/21 07:34 AST 15 U/L (15-37) 06/25/21 07:34 ALT 17 U/L (12-78) 06/25/21 07:34 Alkaline Phosphatase 55 U/L (45-117) 06/25/21 07:34 Troponin I 0.03 ng/mL (0.0-0.045) 06/03/21 01:05 Triglycerides 98 mg/dL (<150) 06/03/21 06:44 Cholesterol 90 mg/dL (<200) 06/03/21 06:44 HDL Cholesterol 44 mg/dL (40-60) 06/03/21 06:44 Cholesterol/HDL Ratio 2.05 06/03/21 06:44 Lipase 115 U/L (73-393) 06/05/21 17:24 Home Medications: Atorvastatin Calcium [Lipitor*] 10 mg PO BEDTIME 10/12/20 Hydralazine HCl [Apresoline] 50 mg PO TID 10/12/20 Sertraline [Zoloft*] 25 mg PO DAILY 06/02/21 Calcitrol [Rocaltrol*] 0.25 mcg PO DAILY #30 cap 06/08/21 Calcium Carbonate [Oscal*] 1,000 mg PO DAILY #30 tab 06/08/21 Cholecalciferol (Vitamin D3) [Vitamin D 1000 Iu Tab*] 1,000 unit PO DAILY #30 tab 06/08/21 Nepro Shake [Nepro*] 237 ml PO TID #90 can 06/08/21 Thiamine HCl [Vitamin B-1*] 100 mg PO DAILY #30 tablet 06/08/21 cloNIDine HCL [Catapres*] 0.1 mg PO TID #90 tab 06/08/21 Cholestyramine/Asp [Questran Light*] 4 gm PO BIDWM packet 06/25/21 Famotidine [Pepcid*] 20 mg PO DAILY tab 06/25/21 Hydralazine [Apresoline*] 100 mg PO TID tab 06/25/21 Loperamide [Imodium*] 2 mg PO Q4HP PRN cap 06/25/21 Nepro Shake [Nepro*] 237 ml PO BID can 06/25/21 Pantoprazole [Protonix Tab*] 40 mg PO BIDAC tab 06/25/21 cloNIDine HCL [Catapres*] 0.2 mg PO TID #0 tab 06/25/21 metroNIDAZOLE [Flagyl*] 500 mg PO TID #6 tablet 06/25/21 predniSONE [Prednisone*] 10 mg PO DAILY 5 Days #5 tab 06/25/21 New Medications: cloNIDine HCL [Catapres*] 0.1 mg PO TID #90 tab Nepro Shake [Nepro*] 237 ml PO TID #90 can Calcium Carbonate [Oscal*] 1,000 mg PO DAILY #30 tab Calcitrol [Rocaltrol*] 0.25 mcg PO DAILY #30 cap Thiamine HCl [Vitamin B-1*] 100 mg PO DAILY #30 tablet Cholecalciferol (Vitamin D3) [Vitamin D 1000 Iu Tab*] 1,000 unit PO DAILY #30 tab Physician Discharge Instructions: OK TO DC IV AND DC HOME if tolerates his lunch FOLLOW-UP WITH PRIMARY CARE PROVIDER IN 1-2 WEEKS FOLLOW-UP WITH General surgery in 1-2 weeks RETURN TO THE ER IF symptoms worsen CALL or TEXT DR. FAJARDO AT [phone] IF ANY QUESTIONS REGARDING HOSPITAL STAY. PLEASE CALL THE FLOOR AT [phone] IF ANY MEDICATION OR NURSING QUESTIONS. Diet: Renal Activity: Fall precautions Followup: Sebastian Roth MD [Primary Care Provider] - Time spent managing pt's care (in minutes): 35
[2021-06-25 19:08] LABS: Hematocrit 29.3 % (39.6-49.0)
--- NOTE | 2021-06-25 20:36 | PN ---
Date of Progress Note: 06/25/2021 Chief Complaint: End-stage renal disease/ History Of Present Illness: The patient has history of intradialytic hypotension. Recently, clonidi ne was adjusted because of episodes of hypotension and dose was decreased. The patient is undergoing dialysis 3 times per week. He denies PND or orthopnea. Physical Examination: Lungs: Clear to auscultation bilaterally. Heart: S1, S2. Abdomen: Soft, benign. Extremities: Slight edema. Impression And Plan: 1.End-stage renal disease. Continue to monitor blood pressure. Currently adjust ultrafiltration fo r adequate volume control. 2.Hyponatremia secondary to fluid overload, dilutional hyponatremia, asymptomatic. The patient will have dialysis to control volemia and for management of electrolyte disorder. 3.Hyperkalemia. Dialysis will be done with 2 potassium dialysate. EB/MODL Voice ID: [id number] Report ID: [id number]
[2021-06-25] MEDS: ATORVASTATIN 10 MG TAB PO SCH (20:55)
[2021-06-26] MEDS: INSULIN -REGULAR HUMAN 50 UNIT/0.5 ML ML SQ SCH ×4 (07:30→20:55)
--- NOTE | 2021-06-26 08:31 | P.PN ---
Subjective Date of Service: 06/26/21 Primary Care Provider: Dr. Roth; Nephrology-Dr. Mercedes Chief Complaint: Fatigue, low blood pressure Subjective: Doing well (no new complaints. awaiting dialysis placement (,,). Will schedule colonoscopy outpatient.), Other <Ernestine Morrison - Last Filed: 06/26/21 09:30> Date of Service: 06/26/21 <Joe Wilson - Last Filed: 06/26/21 15:22> Physical Examination - Vital Signs Temperature: 97.1 F Blood Pressure: 128/60 Pulse: 67 Respirations: 18 Pulse Ox (%): 98 - Studies Medications List Reviewed: Yes <Ernestine Morrison - Last Filed: 06/26/21 09:30> Assessment & Plan Physician Review: Patient Assessed, Agree with Above Assessment and Plan Physician Review Additional Text: Covid: Negative Chest x-ray: COMPARISON: Abdomen Acute Series dated 10/12/2020; Chest Single View dated 10/11/2020; Chest Single View dated 09/02/2020; Chest Single View dated 11/11/2019 FINDINGS: No evidence of edema or pneumonia. Cardiomegaly.No acute osseous abnormality. No significant pleural effusions or pneumothorax. IMPRESSION: No acute cardiopulmonary disease. Physical Exam: GENERAL: The patient is a well-developed, well-nourished, in no apparent distress. Alert and oriented x3. VITAL SIGNS: Reviewed HEENT: Patient appears better hydrated. NECK: Supple. No carotid bruits. No lymphadenopathy or thyromegaly. LUNGS: Clear to auscultation. No crackles or wheezes are heard. HEART: Regular rate and rhythm, no appreciable gallops, rubs, murmurs or extra heart sounds ABDOMEN: Soft, nontender, and nondistended. Positive bowel sounds. No hepatosplenomegaly was noted. EXTREMITIES: Without any cyanosis, clubbing, rash, lesions or peripheral edema. NEUROLOGIC: The patient is oriented to person, place and time. Strength and sensation are grossly intact. Face is symmetric. Muscle wasting. SKIN: Normal color, turgor and temperature. No ulcerations or rashes noted. Impression: Fatigue secondary to hypotension with history of hypertension Chronic diarrhea with lactose intolerance complicated with Ileus End-stage renal disease on hemodialysis Diabetes mellitus type 2 History of CVA GERD PVD Depression History of prostate cancer Plan: Fatigue secondary to hypotension with history of hypertension: Patient doing well at this time. Continue with physical therapy. Continue prednisone, Flagyl. Awaiting approval from [employer]. This was discussed in detail and at length with case management, case management social worker and nephrology. It appears that dialysis was approved at the [facility] but now case management social worker mentions that patient is out of network. ceramic worker spoke to the family and they want to pursue the [place] facility. Await further recommendations from case management social worker. Will have nephrology address with dialysis center in [place] to see if they can help expedite this. Otherwise continue with current plan of care and await for approval. I will turn the service over to the hospitalist team tomorrow. I will go over plan of care with him. Chronic diarrhea with lactose intolerance complicated with Ileus: Ileus resolved. Continue with medication. Continue cholestyramine, prednisone, Flagyl. Patient also on Imodium as needed. End-stage renal disease on hemodialysis: Continue with dialysis every Sunday, Sunday and Sunday. Discussed in detail with nephrology. Diabetes mellitus type 2: Oral intake encouraged. Continue Nepro supplementation 3 times a day. Dietary consult to evaluate daily need. History of CVA: Continue with Lipitor GERD: Continue Pepcid PVD: Continue home medication Depression: Continue with medicationZoloft History of prostate cancer: Overall stable Code Status: Patient is DNR DVT prophylaxis: Heparin Advanced Care Planning-30 minutes: Skilled placement facility <Ernestine Morrison - Last Filed: 06/26/21 09:30> Discharge Plan: Other ([facility] facility) Plan to discharge in: 48 Hours Physician Review Additional Text: Case discussed with physician press assistant and feeder. Agree with plan of care. Will monitor closely. Additional diagnoses: Melena noted. Case discussed with GI. GI plans for colonoscopy tomorrow to further evaluate. Patient received 1 unit of blood yesterday. We will continue to monitor closely. Patient to get GoLYTELY and to collect tonight. Await findings. Recheck hemoglobin hematocrit. If less than 8 will consider transfusion at this time. Maintain hemoglobin above 8.0. Will discuss with nephrology. We will also discuss with family. Continue to monitor and assess. Hold skilled placement referral until fully evaluated by GI. Time Spent Managing Pts Care (In Minutes): 55 <Joe Wilson - Last Filed: 06/26/21 15:22>
[2021-06-26] MEDS: SERTRALINE HCL 50 MG TAB PO SCH (08:48)
[2021-06-26] MEDS: PANTOPRAZOLE 40MG TABLET PO SCH ×2 (08:48→16:40)
[2021-06-26] MEDS: FAMOTIDINE 20 MG TAB PO SCH (08:48)
[2021-06-26] MEDS: cloNIDine HCL 0.1 MG TAB PO SCH ×3 (08:48→20:54)
[2021-06-26] MEDS: VITAMIN D 1000 UNIT TAB PO SCH (08:48)
[2021-06-26] MEDS: ASPIRIN 81 MG CHEWABLE TABLET PO SCH (08:48)
[2021-06-26] MEDS: CHOLESTYRAMINE/ASP 4 GM/PKT PO SCH ×2 (08:49→15:45)
[2021-06-26] MEDS: CALCIUM CARBONATE 500 MG TAB PO SCH (08:49)
[2021-06-26] MEDS: CALCITROL 0.25 MCG CAP PO SCH (08:49)
[2021-06-26] MEDS: HYDRALAZINE HCL 25 MG TABLET PO SCH ×3 (08:49→20:54)
[2021-06-26] MEDS: FOLIC ACID 1 MG TABLET PO SCH (08:49)
[2021-06-26] MEDS: THIAMINE HCL 100 MG TABLET PO SCH (08:49)
[2021-06-26] MEDS: metroNIDAZOLE 500 MG TABLET PO SCH ×3 (08:49→20:54)
[2021-06-26] MEDS: predniSONE 20 MG TAB PO SCH (08:49)
[2021-06-26] MEDS: MULTIVITAMINS,THERAPEUT 1 TAB PO SCH (08:51)
[2021-06-26] MEDS: NEPRO SHAKE 237 ML CAN PO SCH ×2 (08:52→20:54)
[2021-06-26] MEDS: GOLYTELY 4000 ML PO SCH (14:23)
[2021-06-26 14:35] LABS: RBC Red Blood Cell Count 3.63 M/uL (4.33-5.43)
[2021-06-26 14:53] LABS: Albumin 2.5 g/dL (3.4-5.0); Bilirubin Total 0.5 mg/dL (0.2-1.0); Potassium 4.8 mmol/L (3.5-5.1); Protein, Total 4.9 g/dL (6.4-8.2)
[2021-06-26 14:56] LABS: Phosphorus 0.8 mg/dL (2.5-4.9)
[2021-06-26 15:19] LABS: Absolute Lymphocytes (CBC) 0.9 K/uL (0.7-4.9); Basophils % 0.2 % (0-1.3); Hematocrit 28.2 % (39.6-49.0); Lymphocytes % 14.2 % (15.3-44.8); MPV 8.5 fL (7.6-11.3); RBC Red Blood Cell Count 3.64 M/uL (4.33-5.43)
[2021-06-26] MEDS ORDERED: SODIUM PHOSPHATE 10 MM in NA CHLORIDE 0.9% 250 ML IV ONE (16:30)
[2021-06-26] MEDS ORDERED: BISACODYL E.C. 5 MG TAB PO ONE (17:00)
--- NOTE | 2021-06-26 20:27 | PN ---
Date of Progress Note: 06/26/2021 Chief Complaint: End stage renal disease. History Of Present Illness: The patient received dialysis yesterday. Procedure was well tolerated. The patient remained hemodynamically stable. Blood pressure has stabilized. The patient previously required midodrine for blood pressure support during dialysis, although patient had chest x-ray done and acute abdominal series. There is no evidence of edema or pneumonia. Cardiomegaly is present. No significant pulmonary effusion or pneumothorax. The patient was found to have melena and needs to have EGD tomorrow. Blood work was obtained today to check electrolytes and he was found to have sev ere hypophosphatemia and IV sodium sulfate infusions, severe hypophosphatemia. The patient has chron ic anemia. Anemia has been stable and hemoglobin level is ranging from 9.3 to 9.8 over last 24 hours , although it dropped from 9.8 to 9.3. The patient was found to have severe hypophosphatemia, phosphorus level is 0.8, and the patient took IV sodium sulfate infusion. Review of Systems: Denies PND, orthopnea. Physical Examination: Lungs: Clear to auscultation bilaterally. Heart: S1, S2. Abdomen: Soft, benign. Extremities: Slight edema. Impression And Plan: 1.End-stage renal disease. Next dialysis on Sunday. 2.Anemia. The patient is undergoing workup to rule out gastrointestinal bleeding. 3.Hypophosphatemia replacement is ordered today and the patient has taken out binders few days ago. Continue to monitor phosphorus level. Adjust diet as needed. 4.Hypertension. Blood pressure is controlled. 5.Anemia, chronic kidney disease. Continue LUDWIG. EB/MODL Voice ID: [id number] Report ID: [id number]
[2021-06-26] MEDS: Levofloxacin500mg IV 500 MG/100 ML BAG IV SCH ×2 (20:52→21:00)
[2021-06-26] MEDS: ATORVASTATIN 10 MG TAB PO SCH (20:54)
[2021-06-27 00:52] LABS: Absolute Lymphocytes (CBC) 1.4 K/uL (0.7-4.9); Basophils % 0.2 % (0-1.3); Hematocrit 28.9 % (39.6-49.0); Lymphocytes % 19.2 % (15.3-44.8); MPV 8.7 fL (7.6-11.3); RBC Red Blood Cell Count 3.75 M/uL (4.33-5.43)
--- NOTE | 2021-06-27 06:04 | P.PN ---
Subjective Date of Service: 06/27/21 Primary Care Provider: Dr. Roth; Nephrology-Dr. Mercedes Chief Complaint: Fatigue, low blood pressure Subjective: Other (Patient had prep for EGD/colonoscopy today.) Physical Examination - Vital Signs Temperature: 97.4 F Blood Pressure: 157/70 Pulse: 60 Respirations: 18 Pulse Ox (%): 100 - Studies Medications List Reviewed: Yes Assessment & Plan Discharge Plan: Other (Skilled facility) Plan to discharge in: 72 Hours Physician Review Additional Text: Covid: Negative Chest x-ray: COMPARISON: Abdomen Acute Series dated 10/12/2020; Chest Single View dated 10/11/2020; Chest Single View dated 09/02/2020; Chest Single View dated 11/11/2019 FINDINGS: No evidence of edema or pneumonia. Cardiomegaly.No acute osseous abnormality. No significant pleural effusions or pneumothorax. IMPRESSION: No acute cardiopulmonary disease. CT Ab: COMPARISON: Abdomen Pelvis Wo Contrast dated 10/11/2020; Abdomen Pelvis Wo Contrast dated 11/06/2018; Abdomen Pelvis Wo Contrast dated 10/21/2017; Stone Protocol dated 12/22/2016 TECHNIQUE: CT imaging of the abdomen and pelvis was performed without contrast. Solid organ, bowel and vascular assessment is limited due to lack of IV and oral contrast. All CT scans are performed using dose optimization technique as appropriate and may include automated exposure control or mA/KV adjustment according to patient size. FINDINGS: The lower lung landin are clear.Cardiomegaly. Bilateral renal lesions, largest in left kidney measuring 11.7 centimeters. This is consistent with a simple cyst. There are several intermediate attenuation right renal lesions which are likely hemorrhagic or proteinaceous cyst and similar to prior. There is an abnormal morphology of the lower pole the left kidney which is similar. No hydronephrosis per Prostatectomy with pelvic lymph node dissection. . Diffuse colonic and small bowel dilatation with frothy bowel contents and gas. There is a transition the distal transverse colon to nondilated distal transverse and sigmoid colon. The ileocecal valve is seen in the right lower quadrant. The osseous structures are within normal limits. IMPRESSION: Marked colonic dilatation with transition at the distal transverse colon. This could be secondary to an adynamic ileus however a mechanical small- bowel obstruction from a stricture or mass is difficult to entirely exclude. The colon at the transition has some thickening but this is nonspecific. Consider nonemergent colonoscopy. No free air identified. Multiple indeterminate renal lesions which are grossly similar. A limited non-contrast examination was performed as detailed. Followup CT AB: COMPARISON: Abdomen Pelvis Wo Contrast dated 06/05/2021; Abdomen Pelvis Wo Contrast dated 10/11/2020; Abdomen Pelvis Wo Contrast dated 11/06/2018; Abdomen Pelvis Wo Contrast dated 10/21/2017 TECHNIQUE: CT imaging of the abdomen and pelvis was performed without contrast. Solid organ, bowel and vascular assessment is limited due to lack of IV and oral contrast. All CT scans are performed using dose optimization technique as appropriate and may include automated exposure control or mA/KV adjustment according to patient size. FINDINGS: Trace bilateral effusions. Cardiomegaly. Coronary calcifications. No focal liver lesions are identified. Gallbladder is contracted, otherwise unremarkable. Re- demonstrated multiple bilateral renal lesions, some which are not well characterized complex in appearance. The largest is a left upper pole renal cyst. The spleen is unremarkable. The pancreas is unremarkable. No retroperitoneal lymphadenopathy. Bladder is within normal limits. Re- demonstrated marked colonic dilatation with some transition at the distal transverse colon. This is similar to prior. There is also fairly pronounced circumferential rectal wall thickening. The colon measures over 9 centimeters which is similar appear. Small volume of pelvic free fluid. Grade 1 anterolisthesis L4 on L5. Scattered degenerative changes are present in the spine. IMPRESSION: Persistent colonic dilatation with a transition point at the distal transverse colon may be contributing to a partial obstruction. Some gas and stool is seen distally. This finding is similar to the CT from 06/05/2021. Also more prominent is circumferential rectal wall thickening that may represent a proctitis. A limited non-contrast examination was performed as detailed. Physical Exam: GENERAL: The patient is a well-developed, well-nourished, in no apparent distress. Alert and oriented x3. VITAL SIGNS: Reviewed HEENT: Patient appears better hydrated. NECK: Supple. No carotid bruits. No lymphadenopathy or thyromegaly. LUNGS: Clear to auscultation. No crackles or wheezes are heard. HEART: Regular rate and rhythm, no appreciable gallops, rubs, murmurs or extra heart sounds ABDOMEN: Soft, nontender, and nondistended. Positive bowel sounds. No hepatosplenomegaly was noted. EXTREMITIES: Without any cyanosis, clubbing, rash, lesions or peripheral edema. NEUROLOGIC: The patient is oriented to person, place and time. Strength and sensation are grossly intact. Face is symmetric. Muscle wasting. SKIN: Normal color, turgor and temperature. No ulcerations or rashes noted. Impression: Melena, chronic diarrhea with recent ileus with noted CT scan showing transition point in the transverse colon status post colonoscopy showing suspected colon cancer with transition point in the mid transverse colon with anemia of chronic disease Fatigue secondary to hypotension with history of hypertension End-stage renal disease on hemodialysis Diabetes mellitus type 2 History of CVA GERD PVD Depression History of prostate cancer Plan: Melena, chronic diarrhea with recent ileus with noted CT scan showing transition point in the transverse colon status post colonoscopy showing suspected colon cancer with transition point in the mid transverse colon with anemia of chronic disease: H&H stable. Continue to monitor hemoglobin hematocrit. Case discussed at length with GI during colonoscopy. Colonoscopy showed transition point to the mid transverse colon with area suspicious for colon cancer. Case discussed with daughter. Will discuss further with patient and surgeon about plan of care. GI recommends hospice versus surgical intervention. Surgical intervention may require colectomy with colostomy. Will discuss with surgery for recommendation. Will hold plans for transfer to skilled facility at this time. Patient remains on Flagyl and Levaquin. Discontinue prednisone. Will discuss findings with nephrology. Fatigue secondary to hypotension with history of hypertension: Patient remains on clonidine 0.2 mg 3 times a day and hydralazine 100 mg 3 times a day. End-stage renal disease on hemodialysis: Continue with dialysis every Sunday, Sunday and Sunday. Discussed in detail with nephrology. Diabetes mellitus type 2: Oral intake encouraged. Continue Nepro supplementation 3 times a day. Dietary consult to evaluate daily need. Continue sliding scale. History of CVA: Continue with Lipitor 10 mg daily GERD: Continue Protonix 40 mg 1 pill twice daily PVD: Continue home medication Depression: Continue with medicationZoloft 25 mg daily History of prostate cancer: Overall stable Code Status: Patient is DNR DVT prophylaxis: Heparin Advanced Care Planning-30 minutes: Skilled placement facility Time Spent Managing Pts Care (In Minutes): 55
[2021-06-27] MEDS: PANTOPRAZOLE 40MG TABLET PO SCH ×2 (07:30→18:22)
[2021-06-27] MEDS: INSULIN -REGULAR HUMAN 50 UNIT/0.5 ML ML SQ SCH ×4 (07:30→21:00)
[2021-06-27] MEDS: CHOLESTYRAMINE/ASP 4 GM/PKT PO SCH (08:00)
[2021-06-27] MEDS: NEPRO SHAKE 237 ML CAN PO SCH ×2 (09:00→21:00)
[2021-06-27] MEDS: cloNIDine HCL 0.1 MG TAB PO SCH ×3 (09:00→21:39)
[2021-06-27] MEDS: metroNIDAZOLE 500 MG TABLET PO SCH ×3 (09:00→21:40)
[2021-06-27] MEDS ORDERED: GLUCAGON 1 MG/VIAL IM PRN (09:00)
[2021-06-27] MEDS: predniSONE 20 MG TAB PO SCH (09:00)
[2021-06-27] MEDS: HYDRALAZINE HCL 25 MG TABLET PO SCH ×3 (09:00→21:00)
--- NOTE | 2021-06-27 09:11 | PN ---
Date of Progress Note: 06/24/2021 Subjective: The patient has end-stage renal disease. He underwent dialysis yesterday. The patient was found to have hyperkalemia dialysis with 2 potassium dialysate to control potassium le seng. Volemia was controlled with ultrafiltration. The patient has dialysis. Blood press ure is trending down. The patient may require . Review of Systems: Denies fever or chills. Objective: Lungs: Clear to auscultation bilaterally. Heart: S1, S2. Abdomen: . Extremities: No edema. Impression And Plan: 1.End-stage renal disease. Dialysis tomorrow. 2.Chronic . 3.Renal osteodystrophy. Continue renal diet and diabetic diet. 4.Hyperkalemia. The patient was treated with dialysis. Potassium level is improved. 5.Hyponatremia limit fluid intake. 6.Hypophosphatemia. Phosphorus level is 1.6. Replacement as needed. Plan is to hold all binders. SYLVIA/MODL Voice ID: [id number] Report ID: [id number]
[2021-06-27] MEDS ORDERED: SODIUM PHOSPHATE 10 MM in NA CHLORIDE 0.9% 250 ML IV ONE (10:00)
[2021-06-27] MEDS ORDERED: NA CHLORIDE 0.9% 500 ML ONE (11:21)
[2021-06-27] MEDS ORDERED: LIDOCAINE 1% MPF 5 ML VIAL ONE ×2 (11:36→11:43)
[2021-06-27] MEDS ORDERED: propofoL 200 MG/20 ML VIAL IV ONE (11:36)
[2021-06-27] MEDS ORDERED: NS 0.9% VIAL 10 ML ONE (11:37)
[2021-06-27] MEDS ORDERED: Phenylephrine HCl 10 MG/ML 1 ML VIAL ONE (11:37)
[2021-06-27] MEDS ORDERED: ETOMIDATE 20 MG/10 ML VIAL IV ONE (12:37)
[2021-06-27] MEDS ORDERED: EPHEDRINE SULF 50 MG/ML VIAL ONE (12:59)
[2021-06-27] MEDS: GOLYTELY 4000 ML PO SCH (13:00)
[2021-06-27 14:41] LABS: HBsAG Nonreactive (Nonreactive)
--- NOTE | 2021-06-27 15:53 | OP ---
Surgeon: Jaycob Han MD Procedure Performed: Colonoscopy and upper endoscopy. Indication For Procedure: Anemia, recent GI bleeding. Plan For Anesthesia: Monitored anesthesia care. Complexity: High due to the patient's comorbidities. Technique: After obtaining informed consent from the patient, explaining risks and complications and also the primary team had spoken to the patient's daughter, risks and complications including bleedi ng, infection, perforation, and anesthesia complication, the patient was placed initially in the left lateral position and sedation was given. At first, we did the upper endoscopy. The details of [facility] are as follows. The scope was advanced to the mouth and carefully guided up till the third portion of the duodenum. After the completion of the procedure, scope and equipment were withdrawn and proc edure terminated in a safe manner. Findings: Esophagus: No gross lesion seen in the entire esophagus. Stomach: [id number] patchy erythema seen in the body and antrum. Biopsies taken. In the fund us, there was food or medication stuck in that area. A detailed view could not be obtained even afte r recurrent washing. Duodenum: The bulb second and third portion appeared to have a granular mucosa. Small bowel biopsie s taken to rule out celiac disease. Subsequently, the procedure is colonoscopy. The description of which are is as follows: A digital r ectal exam was performed. Then, the scope was inserted into the rectum and carefully guided up to th e mid transverse colon, beyond which the scope could not be advanced due to anatomical partial obstru ction. The quality of prep was poor, however, with a lot of washing, I was able to evaluate very lar ge mass lesions, but polyps likely could have been missed FINDINGS: From the rectum to the distal transverse colon, a lot of altered blood with stool was foun d. In the mid transverse colon, a circumferential obstructive lesion was found. This appeared friab le, ulcerated, and was oozing to touch. This was likely source of bleeding, appears to be malignant. Multiple biopsies taken. Tattoo placed distal to the lesion with gentle pressure. An attempt was made to pass the lesion, but this could not be done, therefore no further pressure was applied or att empt made to traverse the mass lesion. Subsequently, the scope was gradually withdrawn. Complications: None. Tolerance To Anesthesia: Excellent. Postoperative Diagnosis: Upper endoscopy, gastritis due to a possible duodenitis for the colonoscopy , colonic mass with partial obstruction and bleeding. Plan: 1.Await pathology results. 2.Plan was already discussed with Dr. Wilson who communicated with the patient's family. Surgical i ntervention as deemed appropriate by General Surgery and family, the patient's agreement and wishes. Await pathology results. Start on clear liquid diet. Recall GI if needed. US/MODL Voice ID: [id number] Report ID: [id number]
[2021-06-27] MEDS: VITAMIN D 1000 UNIT TAB PO SCH (18:19)
[2021-06-27] MEDS: SERTRALINE HCL 50 MG TAB PO SCH (18:20)
[2021-06-27] MEDS: CALCIUM CARBONATE 500 MG TAB PO SCH (18:21)
[2021-06-27] MEDS: FOLIC ACID 1 MG TABLET PO SCH (18:22)
[2021-06-27] MEDS: FAMOTIDINE 20 MG TAB PO SCH (18:23)
[2021-06-27] MEDS: MULTIVITAMINS,THERAPEUT 1 TAB PO SCH (18:23)
[2021-06-27] MEDS: THIAMINE HCL 100 MG TABLET PO SCH (18:23)
[2021-06-27] MEDS: CALCITROL 0.25 MCG CAP PO SCH (18:23)
[2021-06-27] MEDS: ATORVASTATIN 10 MG TAB PO SCH (21:40)
--- NOTE | 2021-06-27 22:11 | PN ---
Date of Progress Note: 06/27/2021 Chief Complaint: End-stage renal disease, on hemodialysis. History Of Present Illness: The patient underwent dialysis on Sunday. The patient was found to major ve hypophosphatemia and is receiving IV sodium phosphate infusion. The patient is scheduled to have colonoscopy today. The patient denies fever or chills. Physical Examination: Lungs: Clear to auscultation bilaterally. Heart: S1, S2. Abdomen: Soft, benign. Extremities: No edema. Impression And Plan: 1.End-stage renal disease. Next dialysis tomorrow. 2.Chronic anemia. Workup are pending. The patient is scheduled to have colonoscopy. Continue LUDWIG for anemia due to chronic kidney disease. 3.Hyponatremia, resolved. The patient will have dialysis to control potassium level. Today, potass ium was within normal limits. 4.Hypophosphatemia. Replacement was ordered. EB/MODL Voice ID: [id number] Report ID: [id number]
[2021-06-28] MEDS ORDERED: NA CHLORIDE 0.9% 1,000 ML ONE (05:06)
--- NOTE | 2021-06-28 05:54 | P.PN ---
Subjective Date of Service: 06/28/21 Primary Care Provider: Dr. Roth; Nephrology-Dr. Mercedes Chief Complaint: Fatigue, low blood pressure Subjective: Other (Patient stable. Tolerating clear liquid diet.) Physical Examination - Vital Signs Temperature: 98.1 F Blood Pressure: 144/65 Pulse: 58 Respirations: 16 Pulse Ox (%): 99 - Studies Medications List Reviewed: Yes Assessment & Plan Discharge Plan: Other (Possible transfer) Plan to discharge in: 48 Hours Physician Review Additional Text: Covid: Negative Chest x-ray: COMPARISON: Abdomen Acute Series dated 10/12/2020; Chest Single View dated 10/11/2020; Chest Single View dated 09/02/2020; Chest Single View dated 11/11/2019 FINDINGS: No evidence of edema or pneumonia. Cardiomegaly.No acute osseous abnormality. No significant pleural effusions or pneumothorax. IMPRESSION: No acute cardiopulmonary disease. CT Ab: COMPARISON: Abdomen Pelvis Wo Contrast dated 10/11/2020; Abdomen Pelvis Wo Contrast dated 11/06/2018; Abdomen Pelvis Wo Contrast dated 10/21/2017; Stone Protocol dated 12/22/2016 TECHNIQUE: CT imaging of the abdomen and pelvis was performed without contrast. Solid organ, bowel and vascular assessment is limited due to lack of IV and oral contrast. All CT scans are performed using dose optimization technique as appropriate and may include automated exposure control or mA/KV adjustment according to patient size. FINDINGS: The lower lung landin are clear.Cardiomegaly. Bilateral renal lesions, largest in left kidney measuring 11.7 centimeters. This is consistent with a simple cyst. There are several intermediate attenuation right renal lesions which are likely hemorrhagic or proteinaceous cyst and similar to prior. There is an abnormal morphology of the lower pole the left kidney which is similar. No hydronephrosis per Prostatectomy with pelvic lymph node dissection. . Diffuse colonic and small bowel dilatation with frothy bowel contents and gas. There is a transition the distal transverse colon to nondilated distal transverse and sigmoid colon. The ileocecal valve is seen in the right lower quadrant. The osseous structures are within normal limits. IMPRESSION: Marked colonic dilatation with transition at the distal transverse colon. This could be secondary to an adynamic ileus however a mechanical small- bowel obstruction from a stricture or mass is difficult to entirely exclude. The colon at the transition has some thickening but this is nonspecific. Consider nonemergent colonoscopy. No free air identified. Multiple indeterminate renal lesions which are grossly similar. A limited non-contrast examination was performed as detailed. Followup CT AB: COMPARISON: Abdomen Pelvis Wo Contrast dated 06/05/2021; Abdomen Pelvis Wo Contrast dated 10/11/2020; Abdomen Pelvis Wo Contrast dated 11/06/2018; Abdomen Pelvis Wo Contrast dated 10/21/2017 TECHNIQUE: CT imaging of the abdomen and pelvis was performed without contrast. Solid organ, bowel and vascular assessment is limited due to lack of IV and oral contrast. All CT scans are performed using dose optimization technique as appropriate and may include automated exposure control or mA/KV adjustment according to patient size. FINDINGS: Trace bilateral effusions. Cardiomegaly. Coronary calcifications. No focal liver lesions are identified. Gallbladder is contracted, otherwise unremarkable. Re- demonstrated multiple bilateral renal lesions, some which are not well characterized complex in appearance. The largest is a left upper pole renal cyst. The spleen is unremarkable. The pancreas is unremarkable. No retroperitoneal lymphadenopathy. Bladder is within normal limits. Re- demonstrated marked colonic dilatation with some transition at the distal transverse colon. This is similar to prior. There is also fairly pronounced circumferential rectal wall thickening. The colon measures over 9 centimeters which is similar appear. Small volume of pelvic free fluid. Grade 1 anterolisthesis L4 on L5. Scattered degenerative changes are present in the spine. IMPRESSION: Persistent colonic dilatation with a transition point at the distal transverse colon may be contributing to a partial obstruction. Some gas and stool is seen distally. This finding is similar to the CT from 06/05/2021. Also more prominent is circumferential rectal wall thickening that may represent a proctitis. A limited non-contrast examination was performed as detailed. Colonoscopy 06/27/2021: Surgeon: Jaycob Han MD Procedure Performed: Colonoscopy and upper endoscopy. Indication For Procedure: Anemia, recent GI bleeding. Plan For Anesthesia: Monitored anesthesia care. Findings: Esophagus: No gross lesion seen in the entire esophagus. Stomach: Tjet-cf-[id number] patchy erythema seen in the body and antrum. Biopsies taken. In the fundus, there was food or medication stuck in that area. A detailed view could not be obtained even after recurrent washing. Duodenum: The bulb second and third portion appeared to have a granular mucosa. Small bowel biopsies taken to rule out celiac disease. Subsequently, the procedure is colonoscopy. The description of which are is as follows: A digital rectal exam was performed. Then, the scope was inserted into the rectum and carefully guided up to the mid transverse colon, beyond which the scope could not be advanced due to anatomical partial obstruction. The quality of prep was poor, however, with a lot of washing, I was able to evaluate very large mass lesions, but polyps likely could have been missed FINDINGS: From the rectum to the distal transverse colon, a lot of altered blood with stool was found. In the mid transverse colon, a circumferential obstructive lesion was found. This appeared friable, ulcerated, and was oozing to touch. This was likely source of bleeding, appears to be malignant. Multiple biopsies taken. Tattoo placed distal to the lesion with gentle pressure. An attempt was made to pass the lesion, but this could not be done, therefore no further pressure was applied or attempt made to traverse the mass lesion. Subsequently, the scope was gradually withdrawn. Complications: None. Tolerance To Anesthesia: Excellent. Postoperative Diagnosis: Upper endoscopy, gastritis due to a possible duodenitis for the colonoscopy, colonic mass with partial obstruction and bleeding. Physical Exam: GENERAL: The patient is a well-developed, well-nourished, in no apparent distress. Alert and oriented x3. VITAL SIGNS: Reviewed HEENT: Patient appears better hydrated. NECK: Supple. No carotid bruits. No lymphadenopathy or thyromegaly. LUNGS: Clear to auscultation. No crackles or wheezes are heard. HEART: Regular rate and rhythm, no appreciable gallops, rubs, murmurs or extra heart sounds ABDOMEN: Soft, nontender, and nondistended. Positive bowel sounds. No hepatosplenomegaly was noted. EXTREMITIES: Without any cyanosis, clubbing, rash, lesions or peripheral edema. NEUROLOGIC: The patient is oriented to person, place and time. Strength and sensation are grossly intact. Face is symmetric. Muscle wasting. SKIN: Normal color, turgor and temperature. No ulcerations or rashes noted. Impression: Melena, chronic diarrhea with recent ileus with noted CT scan showing transition point in the transverse colon status post colonoscopy showing suspected colon cancer with colonic mass with partial obstruction/transition point in the mid transverse colon with anemia of chronic disease Fatigue secondary to hypotension with history of hypertension End-stage renal disease on hemodialysis Diabetes mellitus type 2 History of CVA GERD PVD Depression History of prostate cancer Thrombocytopenia Plan: Melena, chronic diarrhea with recent ileus with noted CT scan showing transition point in the transverse colon status post colonoscopy showing suspected colon cancer with colonic mass with partial obstruction/transition point in the mid transverse colon with anemia of chronic disease: H&H stable. Continue to monitor hemoglobin hematocrit. Case discussed at length with GI during colonoscopy. Colonoscopy showed transition point to the mid transverse colon with area suspicious for colon cancer. Case discussed with daughter and patient yesterday. Both in agreement that surgical intervention will be needed. Pathology pending. GI recommends surgical intervention. Surgical intervention may require colectomy with colostomy. Will discuss with surgery for recommendation. Will hold plans for transfer to skilled facility at this time. Patient remains on Flagyl and Levaquin. Continue with clear liquids. Will discuss findings with nephrology. Family may want patient to go to [facility] for Colorectal surgery treatment Fatigue secondary to hypotension with history of hypertension: Patient remains on clonidine 0.2 mg 3 times a day and hydralazine 100 mg 3 times a day. End-stage renal disease on hemodialysis: Continue with dialysis every Sunday, Sunday and Sunday. Discussed in detail with nephrology. Diabetes mellitus type 2: Oral intake encouraged. Continue Nepro supplementation 3 times a day. Dietary consult to evaluate daily need. Continue sliding scale. History of CVA: Continue with Lipitor 10 mg daily GERD: Continue Protonix 40 mg 1 pill twice daily PVD: Continue home medication Depression: Continue with medicationZoloft 25 mg daily History of prostate cancer: Overall stable Thrombocytopenia: Will monitor. Heparin discontinued. Continue with SCD. Code Status: Patient is DNR DVT prophylaxis: SCD Advanced Care Planning-30 minutes: Transfer to [facility] for Surgery vs Skilled placement facility Time Spent Managing Pts Care (In Minutes): 55
[2021-06-28 06:21] LABS: Potassium 4.7 mmol/L (3.5-5.1)
[2021-06-28] MEDS: INSULIN -REGULAR HUMAN 50 UNIT/0.5 ML ML SQ SCH ×4 (07:30→21:00)
[2021-06-28] MEDS: PANTOPRAZOLE 40MG TABLET PO SCH ×2 (07:30→16:30)
[2021-06-28] MEDS: VITAMIN D 1000 UNIT TAB PO SCH (09:00)
[2021-06-28] MEDS: metroNIDAZOLE 500 MG TABLET PO SCH (09:00)
[2021-06-28] MEDS: cloNIDine HCL 0.1 MG TAB PO SCH ×3 (09:00→23:19)
[2021-06-28] MEDS: MULTIVITAMINS,THERAPEUT 1 TAB PO SCH (09:00)
[2021-06-28] MEDS: CALCITROL 0.25 MCG CAP PO SCH (09:00)
[2021-06-28] MEDS: THIAMINE HCL 100 MG TABLET PO SCH (09:00)
[2021-06-28] MEDS: FOLIC ACID 1 MG TABLET PO SCH (09:00)
[2021-06-28] MEDS: SERTRALINE HCL 50 MG TAB PO SCH (09:00)
[2021-06-28] MEDS: FAMOTIDINE 20 MG TAB PO SCH (09:00)
[2021-06-28] MEDS: HYDRALAZINE HCL 25 MG TABLET PO SCH ×3 (09:00→23:19)
[2021-06-28] MEDS: NEPRO SHAKE 237 ML CAN PO SCH ×2 (09:00→21:00)
[2021-06-28] MEDS: CALCIUM CARBONATE 500 MG TAB PO SCH (09:00)
--- NOTE | 2021-06-28 10:01 | P.PN ---
Subjective Date of Service: 06/28/21 Primary Care Provider: Dr. Roth; Nephrology-Dr. Mercedes Chief Complaint: Fatigue, low blood pressure no complaints of shortness of breath or abdominal pain. Physical Examination - Vital Signs Temperature: 97.2 F Blood Pressure: 136/63 Pulse: 60 Respirations: 18 Pulse Ox (%): 100 - Physical Exam General: Other (frail looking) HEENT: Atraumatic, Normocephalic Neck: Supple, JVD not distended Respiratory: Diminished Cardiovascular: No rubs, No murmurs Gastrointestinal: Soft and benign, Non-distended Musculoskeletal: Swelling Integumentary: No warmth Neurological: Normal tone External genitalia: Other (no bladder distention) - Studies Medications List Reviewed: Yes Assessment And Plan - Plan # ESRD on HD TTS at [facility] History of prostate cancer HD today UF tomorrow x 2 hrs, 3L off HD access: LFA AVF EDW 73 kgs Renal and DM diet Monitor renal panel # Htn BP above goal continue current BP medication regimen Fluid removal via HD today and QRS tomorrow as above # Melena colonoscopy showed possible colon cancer Family opting for transfer to the [facility] to pursue curative measures for his possible colon cancer # Chronic intermittent diarrhea History of lactose intolerance Stool c diff testing & stool cx neg Lactose free diet On empiric antibiotics for ? SIBO # Anemia of chronic disease Monitor H/H # Renal osteodystrophy Monitor Ca & Phos # DM 2 Mngt per primary team # Debility, Hx of CVA PT/OT Physician Review: Patient Assessed, Agree with Above Assessment and Plan
[2021-06-28 13:24] LABS: Hepatitis C Virus RNA (PCR)log <1.18 log IU/mL
[2021-06-28] MEDS: ATORVASTATIN 10 MG TAB PO SCH (23:19)
[2021-06-29 05:16] LABS: Absolute Lymphocytes (CBC) 0.7 K/uL (0.7-4.9); Basophils % 0.4 % (0-1.3); Hematocrit 22.2 % (39.6-49.0); Lymphocytes % 14.9 % (15.3-44.8); MPV 8.4 fL (7.6-11.3); RBC Red Blood Cell Count 2.89 M/uL (4.33-5.43)
[2021-06-29 05:34] LABS: Magnesium 1.8 mg/dL (1.8-2.4); Phosphorus 1.2 mg/dL (2.5-4.9); Potassium 4.5 mmol/L (3.5-5.1)
--- NOTE | 2021-06-29 05:59 | P.PN ---
Subjective Date of Service: 06/29/21 Primary Care Provider: Dr. Roth; Nephrology-Dr. Mercedes Chief Complaint: Fatigue, low blood pressure Subjective: Other (Patient stable. No complaints noted.) Physical Examination - Vital Signs Temperature: 97.7 F Blood Pressure: 123/59 Pulse: 52 Respirations: 18 Pulse Ox (%): 100 - Studies Medications List Reviewed: Yes Assessment & Plan Discharge Plan: Home Plan to discharge in: Greater than 2 days Physician Review Additional Text: Covid: Negative Chest x-ray: COMPARISON: Abdomen Acute Series dated 10/12/2020; Chest Single View dated 10/11/2020; Chest Single View dated 09/02/2020; Chest Single View dated 11/11/2019 FINDINGS: No evidence of edema or pneumonia. Cardiomegaly.No acute osseous abnormality. No significant pleural effusions or pneumothorax. IMPRESSION: No acute cardiopulmonary disease. CT Ab: COMPARISON: Abdomen Pelvis Wo Contrast dated 10/11/2020; Abdomen Pelvis Wo Contrast dated 11/06/2018; Abdomen Pelvis Wo Contrast dated 10/21/2017; Stone Protocol dated 12/22/2016 TECHNIQUE: CT imaging of the abdomen and pelvis was performed without contrast. Solid organ, bowel and vascular assessment is limited due to lack of IV and oral contrast. All CT scans are performed using dose optimization technique as appropriate and may include automated exposure control or mA/KV adjustment according to patient size. FINDINGS: The lower lung landin are clear.Cardiomegaly. Bilateral renal lesions, largest in left kidney measuring 11.7 centimeters. This is consistent with a simple cyst. There are several intermediate attenuation right renal lesions which are likely hemorrhagic or proteinaceous cyst and similar to prior. There is an abnormal morphology of the lower pole the left kidney which is similar. No hydronephrosis per Prostatectomy with pelvic lymph node dissection. . Diffuse colonic and small bowel dilatation with frothy bowel contents and gas. There is a transition the distal transverse colon to nondilated distal transverse and sigmoid colon. The ileocecal valve is seen in the right lower quadrant. The osseous structures are within normal limits. IMPRESSION: Marked colonic dilatation with transition at the distal transverse colon. This could be secondary to an adynamic ileus however a mechanical small- bowel obstruction from a stricture or mass is difficult to entirely exclude. The colon at the transition has some thickening but this is nonspecific. Consider nonemergent colonoscopy. No free air identified. Multiple indeterminate renal lesions which are grossly similar. A limited non-contrast examination was performed as detailed. Followup CT AB: COMPARISON: Abdomen Pelvis Wo Contrast dated 06/05/2021; Abdomen Pelvis Wo Contrast dated 10/11/2020; Abdomen Pelvis Wo Contrast dated 11/06/2018; Abdomen Pelvis Wo Contrast dated 10/21/2017 TECHNIQUE: CT imaging of the abdomen and pelvis was performed without contrast. Solid organ, bowel and vascular assessment is limited due to lack of IV and oral contrast. All CT scans are performed using dose optimization technique as appropriate and may include automated exposure control or mA/KV adjustment according to patient size. FINDINGS: Trace bilateral effusions. Cardiomegaly. Coronary calcifications. No focal liver lesions are identified. Gallbladder is contracted, otherwise unremarkable. Re- demonstrated multiple bilateral renal lesions, some which are not well characterized complex in appearance. The largest is a left upper pole renal cyst. The spleen is unremarkable. The pancreas is unremarkable. No retroperitoneal lymphadenopathy. Bladder is within normal limits. Re- demonstrated marked colonic dilatation with some transition at the distal transverse colon. This is similar to prior. There is also fairly pronounced circumferential rectal wall thickening. The colon measures over 9 centimeters which is similar appear. Small volume of pelvic free fluid. Grade 1 anterolisthesis L4 on L5. Scattered degenerative changes are present in the spine. IMPRESSION: Persistent colonic dilatation with a transition point at the distal transverse colon may be contributing to a partial obstruction. Some gas and stool is seen distally. This finding is similar to the CT from 06/05/2021. Also more prominent is circumferential rectal wall thickening that may represent a proctitis. A limited non-contrast examination was performed as detailed. Colonoscopy 06/27/2021: Surgeon: Jaycob Han MD Procedure Performed: Colonoscopy and upper endoscopy. Indication For Procedure: Anemia, recent GI bleeding. Plan For Anesthesia: Monitored anesthesia care. Findings: Esophagus: No gross lesion seen in the entire esophagus. Stomach: Vgeb-zo-nefdyyer patchy erythema seen in the body and antrum. Biopsies taken. In the fundus, there was food or medication stuck in that area. A detailed view could not be obtained even after recurrent washing. Duodenum: The bulb second and third portion appeared to have a granular mucosa. Small bowel biopsies taken to rule out celiac disease. Subsequently, the procedure is colonoscopy. The description of which are is as follows: A digital rectal exam was performed. Then, the scope was inserted into the rectum and carefully guided up to the mid transverse colon, beyond which the scope could not be advanced due to anatomical partial obstruction. The quality of prep was poor, however, with a lot of washing, I was able to evaluate very large mass lesions, but polyps likely could have been missed FINDINGS: From the rectum to the distal transverse colon, a lot of altered blood with stool was found. In the mid transverse colon, a circumferential obstructive lesion was found. This appeared friable, ulcerated, and was oozing to touch. This was likely source of bleeding, appears to be malignant. Mul tiple biopsies taken. Tattoo placed distal to the lesion with gentle pressure. An attempt was made to pass the lesion, but this could not be done, therefore no further pressure was applied or attempt made to traverse the mass lesion. Subsequently, the scope was gradually withdrawn. Complications: None. Tolerance To Anesthesia: Excellent. Postoperative Diagnosis: Upper endoscopy, gastritis due to a possible duodenitis for the colonoscopy, colonic mass with partial obstruction and bleeding. Pathology: DIAGNOSIS Small bowel, biopsy: - No significant pathologic changes Stomach, antrum and body, biopsy: - Mild chronic gastritis with focal activity - No Helicobacter pylori organisms identified - No evidence of malignancy Transverse colon mass, biopsy: - Invasive moderately differentiated adenocarcinoma Physical Exam: GENERAL: The patient is a well-developed, well-nourished, in no apparent distress. Alert and oriented x3. VITAL SIGNS: Reviewed HEENT: Patient appears better hydrated. NECK: Supple. No carotid bruits. No lymphadenopathy or thyromegaly. LUNGS: Clear to auscultation. No crackles or wheezes are heard. HEART: Regular rate and rhythm, no appreciable gallops, rubs, murmurs or extra heart sounds ABDOMEN: Soft, nontender, and nondistended. Positive bowel sounds. No hepatosplenomegaly was noted. EXTREMITIES: Without any cyanosis, clubbing, rash, lesions or peripheral edema. NEUROLOGIC: The patient is oriented to person, place and time. Strength and sensation are grossly intact. Face is symmetric. Muscle wasting. SKIN: Normal color, turgor and temperature. No ulcerations or rashes noted. Impression: Melena, chronic diarrhea with recent ileus with noted CT scan showing transition point in the transverse colon status post colonoscopy showing suspected colon cancer with colonic mass with partial obstruction/transition point in the mid transverse colon with anemia of chronic disease with pathology showing invasive moderately differentiated adenocarcinoma Fatigue secondary to hypotension with history of hypertension End-stage renal disease on hemodialysis Diabetes mellitus type 2 History of CVA GERD PVD Depression History of prostate cancer Thrombocytopenia Plan: Melena, chronic diarrhea with recent ileus with noted CT scan showing transition point in the transverse colon status post colonoscopy showing suspected colon cancer with colonic mass with partial obstruction/transition point in the mid transverse colon with anemia of chronic disease with pathology showing invasive moderately differentiated adenocarcinoma: Hemoglobin has dropped. Will transfuse 2 units of blood. Maintain hemoglobin above 8.0. Case discussed with surgery. Surgery to discuss with family about options of care which will likely be surgery. Family and patient agreeable for surgery. Await recommendations by surgery. Patient tolerating clear liquids diet. Antibiotics discontinued. Steroid discontinued. Continue with plan of care. Await the possibility of surgical intervention here or transferred for colorectal surgery. Fatigue secondary to hypotension with history of hypertension: Patient remains on clonidine 0.2 mg 3 times a day and hydralazine 100 mg 3 times a day. End-stage renal disease on hemodialysis: Continue with dialysis every Sunday, Sunday and Sunday. Discussed in detail with nephrology. Diabetes mellitus type 2: Oral intake encouraged. Continue Nepro supplementation 3 times a day. Dietary consult to evaluate daily need. Continue sliding scale. History of CVA: Continue with Lipitor 10 mg daily GERD: Continue Protonix 40 mg 1 pill twice daily PVD: Continue home medication Depression: Continue with medicationZoloft 25 mg daily History of prostate cancer: Overall stable Thrombocytopenia: Will monitor. Heparin discontinued. Continue with SCD. Code Status: Patient is DNR DVT prophylaxis: SCD Advanced Care Planning-30 minutes: Surgery locally or transfer to [facility] for colorectal surgery then skilled placement facility Time Spent Managing Pts Care (In Minutes): 55
[2021-06-29] MEDS: PANTOPRAZOLE 40MG TABLET PO SCH ×2 (07:30→15:57)
[2021-06-29] MEDS: INSULIN -REGULAR HUMAN 50 UNIT/0.5 ML ML SQ SCH ×4 (07:30→21:00)
[2021-06-29] MEDS: MULTIVITAMINS,THERAPEUT 1 TAB PO SCH (09:00)
[2021-06-29] MEDS: cloNIDine HCL 0.1 MG TAB PO SCH ×3 (09:00→20:34)
[2021-06-29] MEDS: SERTRALINE HCL 50 MG TAB PO SCH (09:00)
[2021-06-29] MEDS: THIAMINE HCL 100 MG TABLET PO SCH (09:00)
[2021-06-29] MEDS: CALCITROL 0.25 MCG CAP PO SCH (09:00)
[2021-06-29] MEDS: NEPRO SHAKE 237 ML CAN PO SCH ×2 (09:00→20:35)
[2021-06-29] MEDS ORDERED: MAGNESIUM SULFATE 1 gm IVPB 1 GM/100 ML BAG IV ONE (09:00)
[2021-06-29] MEDS: FOLIC ACID 1 MG TABLET PO SCH (09:00)
[2021-06-29] MEDS: CALCIUM CARBONATE 500 MG TAB PO SCH (09:00)
[2021-06-29] MEDS: HYDRALAZINE HCL 25 MG TABLET PO SCH ×3 (09:00→20:34)
[2021-06-29] MEDS: VITAMIN D 1000 UNIT TAB PO SCH (09:00)
[2021-06-29] MEDS: FAMOTIDINE 20 MG TAB PO SCH (09:00)
[2021-06-29 09:16] LABS: Blood Morphology Comment NOTED (NOT SEEN); White Blood Cell Scan OK (OK)
[2021-06-29 09:17] LABS: Anisocytosis 1+; Hypochromasia 1+; Ovalocytes 1+; Platelet Estimate DECR; Poikilocytosis SLIGHT
[2021-06-29] MEDS: HYDRALAZINE HCL 20 MG/ML VIAL IV PRN ×2 (10:10→16:40)
--- NOTE | 2021-06-29 14:12 | PN ---
Date of Progress Note: 06/29/2021 Subjective: The patient was admitted with colitis. The patient had colonoscopy, found a colon mass. The patient needs colostomy with partial hemicolectomy. Family is still deciding. Physical Examination: Vital Signs: When I saw the patient; blood pressure 144/67, pulse of 67, afebrile. Chest: Clear to auscultation. Heart: S1, S2. Systolic murmur. Abdomen: Nontender. Extremities: Trace edema. Venous stasis change. Laboratory Data: WBC 4.6, H and H 7.3/22.2. Sodium 139, potassium 4.5, bicarb 30, BUN 9, creatinine 3.4, calcium 7.2, phosphorus 1.2, magnesium 1.8. Current Medications: The patient on include heparin, calcium carbonate 1 g daily, hydralazine 100 t. i.d., clonidine 0.2 t.i.d., atorvastatin, Zoloft, Pepcid, loperamide, pantoprazole, magnesium sulfate , calcitriol 0.25, cholecalciferol, thiamine, multivitamin. Assessment And Plan: 1.End-stage renal disease. We will continue the patient on dialysis Sunday, Sunday, Sunday. 2.Secondary hyperparathyroidism with hypocalcemia and hypophosphatemia secondary to poor intake. Co ntinue calcium supplement. Increase calcitriol. 3.Vitamin D deficiency. Continue supplement. 4.Hypomagnesemia. We will supplement. 5.Anemia of chronic kidney disease/gastrointestinal bleed. We will continue LUDWIG and we will follow up. 6.Deconditioning. Continue PT/OT. 7.Hypertension, controlled, optimal. Continue current medications. ELEONORA/DEONTE Voice ID: [id number] Report ID: [id number]
[2021-06-29] MEDS ORDERED: NA CHLORIDE 0.9% 250 ML ONE ×3 (18:11→22:39)
[2021-06-29] MEDS: ATORVASTATIN 10 MG TAB PO SCH (20:34)
[2021-06-29] MEDS ORDERED: FUROSEMIDE 20 MG/ 2ML VIAL IV ONE (21:10)
[2021-06-30] MEDS: FUROSEMIDE 20 MG/ 2ML VIAL IV ONE ×2 (00:32→01:58)
[2021-06-30 02:59] LABS: Absolute Lymphocytes (CBC) 0.9 K/uL (0.7-4.9); Basophils % 0.5 % (0-1.3); Hematocrit 29.2 % (39.6-49.0); MPV 8.5 fL (7.6-11.3); RBC Red Blood Cell Count 3.71 M/uL (4.33-5.43)
[2021-06-30 03:09] LABS: Magnesium 1.9 mg/dL (1.8-2.4); Potassium 4.8 mmol/L (3.5-5.1)
--- NOTE | 2021-06-30 06:07 | P.PN ---
Subjective Date of Service: 06/30/21 Primary Care Provider: Dr. Roth; Nephrology-Dr. Mercedes Chief Complaint: Fatigue, low blood pressure Subjective: Other (Patient remained stable. Patient received transfusion yesterday. Patient without significant complaints. Tolerating clear liquid diet.) Physical Examination - Vital Signs Temperature: 96.9 F Blood Pressure: 196/84 Pulse: 58 Respirations: 17 Pulse Ox (%): 99 - Studies Medications List Reviewed: Yes Assessment & Plan Discharge Plan: Transfer Plan to discharge in: 24 Hours Physician Review Additional Text: Covid: Negative Chest x-ray: COMPARISON: Abdomen Acute Series dated 10/12/2020; Chest Single View dated 10/11/2020; Chest Single View dated 09/02/2020; Chest Single View dated 11/11/2019 FINDINGS: No evidence of edema or pneumonia. Cardiomegaly.No acute osseous abnormality. No significant pleural effusions or pneumothorax. IMPRESSION: No acute cardiopulmonary disease. CT Ab: COMPARISON: Abdomen Pelvis Wo Contrast dated 10/11/2020; Abdomen Pelvis Wo Contrast dated 11/06/2018; Abdomen Pelvis Wo Contrast dated 10/21/2017; Stone Protocol dated 12/22/2016 TECHNIQUE: CT imaging of the abdomen and pelvis was performed without contrast. Solid organ, bowel and vascular assessment is limited due to lack of IV and oral contrast. All CT scans are performed using dose optimization technique as appropriate and may include automated exposure control or mA/KV adjustment according to patient size. FINDINGS: The lower lung landin are clear.Cardiomegaly. Bilateral renal lesions, largest in left kidney measuring 11.7 centimeters. This is consistent with a simple cyst. There are several intermediate attenuation right renal lesions which are likely hemorrhagic or proteinaceous cyst and similar to prior. There is an abnormal morphology of the lower pole the left kidney which is similar. No hydronephrosis per Prostatectomy with pelvic lymph node dissection. . Diffuse colonic and small bowel dilatation with frothy bowel contents and gas. There is a transition the distal transverse colon to nondilated distal transverse and sigmoid colon. The ileocecal valve is seen in the right lower quadrant. The osseous structures are within normal limits. IMPRESSION: Marked colonic dilatation with transition at the distal transverse colon. This could be secondary to an adynamic ileus however a mechanical small- bowel obstruction from a stricture or mass is difficult to entirely exclude. The colon at the transition has some thickening but this is nonspecific. Consider nonemergent colonoscopy. No free air identified. Multiple indeterminate renal lesions which are grossly similar. A limited non-contrast examination was performed as detailed. Followup CT AB: COMPARISON: Abdomen Pelvis Wo Contrast dated 06/05/2021; Abdomen Pelvis Wo Contrast dated 10/11/2020; Abdomen Pelvis Wo Contrast dated 11/06/2018; Abdomen Pelvis Wo Contrast dated 10/21/2017 TECHNIQUE: CT imaging of the abdomen and pelvis was performed without contrast. Solid organ, bowel and vascular assessment is limited due to lack of IV and oral contrast. All CT scans are performed using dose optimization technique as appropriate and may include automated exposure control or mA/KV adjustment according to patient size. FINDINGS: Trace bilateral effusions. Cardiomegaly. Coronary calcifications. No focal liver lesions are identified. Gallbladder is contracted, otherwise unremarkable. Re- demonstrated multiple bilateral renal lesions, some which are not well characterized complex in appearance. The largest is a left upper pole renal cyst. The spleen is unremarkable. The pancreas is unremarkable. No retroperitoneal lymphadenopathy. Bladder is within normal limits. Re- demonstrated marked colonic dilatation with some transition at the distal transverse colon. This is similar to prior. There is also fairly pronounced circumferential rectal wall thickening. The colon measures over 9 centimeters which is similar appear. Small volume of pelvic free fluid. Grade 1 anterolisthesis L4 on L5. Scattered degenerative changes are present in the spine. IMPRESSION: Persistent colonic dilatation with a transition point at the distal transverse colon may be contributing to a partial obstruction. Some gas and stool is seen distally. This finding is similar to the CT from 06/05/2021. Also more prominent is circumferential rectal wall thickening that may represent a proctitis. A limited non-contrast examination was performed as detailed. Colonoscopy 06/27/2021: Surgeon: Jyacob Han MD Procedure Performed: Colonoscopy and upper endoscopy. Indication For Procedure: Anemia, recent GI bleeding. Plan For Anesthesia: Monitored anesthesia care. Findings: Esophagus: No gross lesion seen in the entire esophagus. Stomach: Jona-hv-[id number] patchy erythema seen in the body and antrum. Biopsies taken. In the fundus, there was food or medication stuck in that area. A detailed view could not be obtained even after recurrent washing. Duodenum: The bulb second and third portion appeared to have a granular mucosa. Small bowel biopsies taken to rule out celiac disease. Subsequently, the procedure is colonoscopy. The description of which are is as follows: A digital rectal exam was performed. Then, the scope was inserted into the rectum and carefully guided up to the mid transverse colon, beyond which the scope could not be advanced due to anatomical partial obstruction. The quality of prep was poor, however, with a lot of washing, I was able to evaluate very large mass lesions, but polyps likely could have been missed FINDINGS: From the rectum to the distal transverse colon, a lot of altered blood with stool was found. In the mid transverse colon, a circumferential obstructive lesion was found. This appeared friable, ulcerated, and was oozing to touch. This was likely source of bleeding, appears to be malignant. Multiple biopsies taken. Tattoo placed distal to the lesion with gentle pressure. An attempt was made to pass the lesion, but this could not be done, therefore no further pressure was applied or attempt made to traverse the mass lesion. Subsequently, the scope was gradually withdrawn. Complications: None. Tolerance To Anesthesia: Excellent. Postoperative Diagnosis: Upper endoscopy, gastritis due to a possible duodenitis for the colonoscopy, colonic mass with partial obstruction and bleeding. Pathology: DIAGNOSIS Small bowel, biopsy: - No significant pathologic changes Stomach, antrum and body, biopsy: - Mild chronic gastritis with focal activity - No Helicobacter pylori organisms identified - No evidence of malignancy Transverse colon mass, biopsy: - Invasive moderately differentiated adenocarcinoma Peripheral blood smear: TISSUES BLOOD, NOS - PERIPHERAL SMEAR DIAGNOSIS Peripheral blood smear: - Normal leukocyte count with slight left shift - Microcytic, hypochromic anemia - Thrombocytopenia - No blasts identified Physical Exam: GENERAL: The patient is a well-developed, well-nourished, in no apparent distress. Alert and oriented x3. VITAL SIGNS: Reviewed HEENT: Patient appears better hydrated. NECK: Supple. No carotid bruits. No lymphadenopathy or thyromegaly. LUNGS: Clear to auscultation. No crackles or wheezes are heard. HEART: Regular rate and rhythm, no appreciable gallops, rubs, murmurs or extra heart sounds ABDOMEN: Soft, nontender, and nondistended. Positive bowel sounds. No hepatosplenomegaly was noted. EXTREMITIES: Without any cyanosis, clubbing, rash, lesions or peripheral edema. NEUROLOGIC: The patient is oriented to person, place and time. Strength and sensation are grossly intact. Face is symmetric. Muscle wasting. SKIN: Edema to the extremities noted Impression: Melena, chronic diarrhea with recent ileus with noted CT scan showing transition point in the transverse colon status post colonoscopy showing suspected colon cancer with colonic mass with partial obstruction/transition point in the mid transverse colon with anemia of chronic disease with pathology showing invasive moderately differentiated adenocarcinoma Fatigue secondary to hypotension with history of hypertension End-stage renal disease on hemodialysis Diabetes mellitus type 2 History of CVA GERD PVD Depression History of prostate cancer Thrombocytopenia Plan: Melena, chronic diarrhea with recent ileus with noted CT scan showing transition point in the transverse colon status post colonoscopy showing suspected colon cancer with colonic mass with partial obstruction/transition point in the mid transverse colon with anemia of chronic disease with pathology showing invasive moderately differentiated adenocarcinoma: Hemoglobin improved after transfusion of 2 units of blood yesterday. Overall stable. Patient tolerating clear liquid diet. Nephrology continues with dialysis. 3500 mL removed yesterday. The day before 4000 mL removed. Case discussed with surgery yesterday. Case also discussed in detail with family. Family prefers to have surgical intervention of colon cancer in [place]. Case discussed with colorectal surgeonDr. Rommel Max. He is willing to accept the patient. Transfer initiated to [facility]. Currently waiting for bed. Patient medically stable for transfer when ready. We will continue to update family and surgeon. Fatigue secondary to hypotension with history of hypertension: Patient remains on clonidine 0.2 mg 3 times a day and hydralazine 100 mg 3 times a day. End-stage renal disease on hemodialysis: 7500 mL removed over the last 2 days. Patient still with edema. Continue with dialysis as directed by nephrology. Diabetes mellitus type 2: Oral intake encouraged. Continue Nepro supplementation 3 times a day. Dietary consult to evaluate daily need. Continue sliding scale. History of CVA: Continue with Lipitor 10 mg daily GERD: Continue Protonix 40 mg 1 pill twice daily PVD: Continue home medication Depression: Continue with medicationZoloft 25 mg daily History of prostate cancer: Overall stable Thrombocytopenia: Platelet count remains low. Continue to monitor closely. Peripheral smear shows no blasts. Microcytic, hypochromic anemia noted. Continue SCD for DVT prophylaxis. Will discuss with hematology/oncology. Code Status: Patient is DNR DVT prophylaxis: SCD Advanced Care Planning-30 minutes: Transfer to [facility] for colorectal surgery. Dr. Rommel Max has accepted the patient. Awaiting approval on bed Time Spent Managing Pts Care (In Minutes): 55
[2021-06-30] MEDS: INSULIN -REGULAR HUMAN 50 UNIT/0.5 ML ML SQ SCH ×3 (07:30→16:30)
[2021-06-30] MEDS: PANTOPRAZOLE 40MG TABLET PO SCH ×2 (08:43→16:56)
[2021-06-30] MEDS: SERTRALINE HCL 50 MG TAB PO SCH (08:43)
[2021-06-30] MEDS: cloNIDine HCL 0.1 MG TAB PO SCH ×4 (08:43→17:02)
[2021-06-30] MEDS: HYDRALAZINE HCL 25 MG TABLET PO SCH ×4 (08:44→17:01)
[2021-06-30] MEDS: THIAMINE HCL 100 MG TABLET PO SCH (08:44)
[2021-06-30] MEDS: VITAMIN D 1000 UNIT TAB PO SCH (08:44)
[2021-06-30] MEDS: FAMOTIDINE 20 MG TAB PO SCH (08:44)
[2021-06-30] MEDS: FOLIC ACID 1 MG TABLET PO SCH (08:44)
[2021-06-30] MEDS: NEPRO SHAKE 237 ML CAN PO SCH (08:45)
[2021-06-30] MEDS: MULTIVITAMINS,THERAPEUT 1 TAB PO SCH (08:45)
[2021-06-30] MEDS: CALCIUM CARBONATE 500 MG TAB PO SCH (08:45)
[2021-06-30] MEDS ORDERED: CALCITROL 0.25 MCG CAP PO SCH (09:00)
[2021-06-30 13:03] VITALS: O2SAT 99
--- NOTE | 2021-06-30 15:25 | PN ---
Date of Progress Note: 06/30/2021 Subjective: The patient was admitted with colitis. The patient had deconditioning. The patient und ergone colonoscopy, found to have colon mass, possible of malignancy. The patient waiting for transf er to [facility] for colorectal surgeon. Physical Examination: Vital Signs: Blood pressure 138/64, pulse of 66, afebrile. Chest: Clear to auscultation. Heart: S1, S2. Regular. Abdomen: Soft, nontender. Extremity: Edema on the upper extremity, lymphedema with venous stasis change on both lower extremit ies. Neuro: Alert. No focality. Laboratory Data: WBC 5.4, H and H 9.8/29.2. Sodium 137, potassium 4.8, bicarb 29, BUN 11, creatinin e 3.9, calcium 7.1, magnesium 1.9, phosphorus 1.2. Current Medications: The patient on include calcium carbonate 1 g daily, atorvastatin, clonidine 0.2 t.i.d., hydralazine 100 t.i.d., Zoloft 25 daily, folic acid, loperamide, Zofran, and pantoprazole. Assessment And Plan: 1.End-stage renal disease, peripheral edema without any respiratory distress secondary to lymphedema . The patient is going to be continued on dialysis. The patient's original schedule is TTS. The julianne sarah was dialyzed yesterday. I am going to watch the patient closely. Mostly, we are going to try to back him to his scheduled TTS. We will follow up his fluid status and his chemistry. 2.Hypertension, controlled, optimal. Continue current medication. 3.Secondary hyperparathyroidism, low phosphorus and calcium secondary to malnourish. Keep holding o ld binder. Continue calcitriol and calcium carbonate and we will follow up. 4.Gastroenteritis, status post treatment. 5.Colon cancer. Waiting for surgery colorectal. The patient is waiting for transfer for [facility] in [facility]. ELEONORA/DEONTE Voice ID: [id number] Report ID: [id number]
--- NOTE | 2021-06-30 17:21 | P.DS ---
Admission Date: 06/03/21 Discharge Date: 06/30/21 Primary Care Provider: Dr. Roth; Nephrology-Dr. Mercedes Disposition: [facility] Discharge Condition: GOOD Reason for Admission: Fatigue, low blood pressure Consultations: Nephrology-Dr. Sweeney GI-Dr. Han Surgery-Dr. Royal Procedures: Covid: Negative Chest x-ray: COMPARISON: Abdomen Acute Series dated 10/12/2020; Chest Single View dated 10/11/2020; Chest Single View dated 09/02/2020; Chest Single View dated 11/11/2019 FINDINGS: No evidence of edema or pneumonia. Cardiomegaly.No acute osseous abnormality. No significant pleural effusions or pneumothorax. IMPRESSION: No acute cardiopulmonary disease. CT Ab: COMPARISON: Abdomen Pelvis Wo Contrast dated 10/11/2020; Abdomen Pelvis Wo Contrast dated 11/06/2018; Abdomen Pelvis Wo Contrast dated 10/21/2017; Stone Protocol dated 12/22/2016 TECHNIQUE: CT imaging of the abdomen and pelvis was performed without contrast. Solid organ, bowel and vascular assessment is limited due to lack of IV and oral contrast. All CT scans are performed using dose optimization technique as appropriate and may include automated exposure control or mA/KV adjustment according to patient size. FINDINGS: The lower lung landin are clear.Cardiomegaly. Bilateral renal lesions, largest in left kidney measuring 11.7 centimeters. This is consistent with a simple cyst. There are several intermediate attenuation right renal lesions which are likely hemorrhagic or proteinaceous cyst and similar to prior. There is an abnormal morphology of the lower pole the left kidney which is similar. No hydronephrosis per Prostatectomy with pelvic lymph node dissection. . Diffuse colonic and small bowel dilatation with frothy bowel contents and gas. There is a transition the distal transverse colon to nondilated distal transverse and sigmoid colon. The ileocecal valve is seen in the right lower quadrant. The osseous structures are within normal limits. IMPRESSION: Marked colonic dilatation with transition at the distal transverse colon. This could be secondary to an adynamic ileus however a mechanical small- bowel obstruction from a stricture or mass is difficult to entirely exclude. The colon at the transition has some thickening but this is nonspecific. Consider nonemergent colonoscopy. No free air identified. Multiple indeterminate renal lesions which are grossly similar. A limited non-contrast examination was performed as detailed. Followup CT AB: COMPARISON: Abdomen Pelvis Wo Contrast dated 06/05/2021; Abdomen Pelvis Wo Contrast dated 10/11/2020; Abdomen Pelvis Wo Contrast dated 11/06/2018; Abdomen Pelvis Wo Contrast dated 10/21/2017 TECHNIQUE: CT imaging of the abdomen and pelvis was performed without contrast. Solid organ, bowel and vascular assessment is limited due to lack of IV and oral contrast. All CT scans are performed using dose optimization technique as appropriate and may include automated exposure control or mA/KV adjustment according to patient size. FINDINGS: Trace bilateral effusions. Cardiomegaly. Coronary calcifications. No focal liver lesions are identified. Gallbladder is contracted, otherwise unremarkable. Re- demonstrated multiple bilateral renal lesions, some which are not well characterized complex in appearance. The largest is a left upper pole renal cyst. The spleen is unremarkable. The pancreas is unremarkable. No retroperitoneal lymphadenopathy. Bladder is within normal limits. Re- demonstrated marked colonic dilatation with some transition at the distal transverse colon. This is similar to prior. There is also fairly pronounced circumferential rectal wall thickening. The colon measures over 9 centimeters which is similar appear. Small volume of pelvic free fluid. Grade 1 anterolisthesis L4 on L5. Scattered degenerative changes are present in the spine. IMPRESSION: Persistent colonic dilatation with a transition point at the distal transverse colon may be contributing to a partial obstruction. Some gas and stool is seen distally. This finding is similar to the CT from 06/05/2021. Also more prominent is circumferential rectal wall thickening that may represent a proctitis. A limited non-contrast examination was performed as detailed. Colonoscopy 06/27/2021: Surgeon: Jaycob Han MD Procedure Performed: Colonoscopy and upper endoscopy. Indication For Procedure: Anemia, recent GI bleeding. Plan For Anesthesia: Monitored anesthesia care. Findings: Esophagus: No gross lesion seen in the entire esophagus. Stomach: [id number] patchy erythema seen in the body and antrum. Biopsies taken. In the fundus, there was food or medication stuck in that area. A detailed view could not be obtained even after recurrent washing. Duodenum: The bulb second and third portion appeared to have a granular mucosa. Small bowel biopsies taken to rule out celiac disease. Subsequently, the procedure is colonoscopy. The description of which are is as follows: A digital rectal exam was performed. Then, the scope was inserted into the rectum and carefully guided up to the mid transverse colon, beyond which the scope could not be advanced due to anatomical partial obstruction. The quality of prep was poor, however, with a lot of washing, I was able to evaluate very large mass lesions, but polyps likely could have been missed FINDINGS: From the rectum to the distal transverse colon, a lot of altered b lood with stool was found. In the mid transverse colon, a circumferential obstructive lesion was found. This appeared friable, ulcerated, and was oozing to touch. This was likely source of bleeding, appears to be malignant. Multiple biopsies taken. Tattoo placed distal to the lesion with gentle pressure. An attempt was made to pass the lesion, but this could not be done, therefore no further pressure was applied or attempt made to traverse the mass lesion. Subsequently, the scope was gradually withdrawn. Complications: None. Tolerance To Anesthesia: Excellent. Postoperative Diagnosis: Upper endoscopy, gastritis due to a possible duodenitis for the colonoscopy, colonic mass with partial obstruction and bleeding. Pathology: DIAGNOSIS Small bowel, biopsy: - No significant pathologic changes Stomach, antrum and body, biopsy: - Mild chronic gastritis with focal activity - No Helicobacter pylori organisms identified - No evidence of malignancy Transverse colon mass, biopsy: - Invasive moderately differentiated adenocarcinoma Peripheral blood smear: TISSUES BLOOD, NOS - PERIPHERAL SMEAR DIAGNOSIS Peripheral blood smear: - Normal leukocyte count with slight left shift - Microcytic, hypochromic anemia - Thrombocytopenia - No blasts identified Medical problem list: Melena, chronic diarrhea with recent ileus with noted CT scan showing transition point in the transverse colon status post colonoscopy showing suspected colon cancer with colonic mass with partial obstruction/transition point in the mid transverse colon with anemia of chronic disease with pathology showing invasive moderately differentiated adenocarcinoma Fatigue secondary to hypotension with history of hypertension End-stage renal disease on hemodialysis Diabetes mellitus type 2 History of CVA GERD PVD Depression History of prostate cancer Thrombocytopenia Brief History of Present Illness: 80-year-old -[place] male with history of end-stage renal disease on hemodialysis, hypertension, diabetes mellitus type 2, history of CVA, PVD, GERD, lactose intolerance. Patient was brought in by family. They have noted that blood pressures have been running low and high. Patient goes to dialysis every Sunday, Sunday and Sunday. Medications had to be held at times. He does take blood pressure medication. He denies any chest pain, shortness of breath. There have been periods of dehydration as well as the patient has chronic diarrhea. No recent antibiotic use. He also is depressed. His recently . He has had poor appetite. He was brought in for further evaluation. Blood pressures stable. Blood pressure around 95-100 systolic. Lab pending at this time. Chest x-ray unremarkable. Patient admitted for further evaluation and treatment. Hospital Course: Patient presented with fatigue secondary to hypotension related to hypertension. This was further complicated with chronic diarrhea. His course of stay was complicated. This included melena, with ileus. CT scan showed transition point in the transverse colon. Patient eventually had colonoscopy showing suspected colon cancer with colonic mass with partial obstruction and transition point in the mid transverse colon. Patient was anemic and required transfusion of blood. Pathology showed invasive moderately differentiated adenocarcinoma. Care was discussed with nephrology, GI and surgery. Family desired transfer to colorectal surgery. Care discussed with Dr. Rommel Max at [facility]. Patient will be transferred to [facility] for colorectal surgery. Care discussed with hospitalist team. Patient stable for transfer. Patient will have colorectal surgery at [facility]. As mentioned above patient with anemia related to cancer. Patient has received transfusion of blood. Hemoglobin stable at this time. Patient with underlying end-stage renal disease on hemodialysis. Patient with some edema. Over the last 48 hours 7000 cc of fluid have been removed. Patient will continue with dialysis as directed with nephrology. Patient with hypertension. Patient initially was taken off of medication. Now back on medication. Patient remains on clonidine 0.2 mg 1 pill 3 times a day and hydralazine 100 mg 3 times a day. Patient with diabetes mellitus type 2. Patient remains on clear liquid diet. Continue with sliding scale. Patient with history of CVA. This has remained stable. Patient remains on Lipitor 10 mg daily. Patient with GERD. Patient will continue with Protonix 40 mg daily. Patient with PVD. Overall stable. Patient will continue off of DVT prophylaxis due to thrombocytopenia. This can be monitored closely. Patient with depression. At discharge patient will continue with Zoloft 25 mg daily. Patient with thrombocytopenia. This has remained low. Peripheral smear shows no blasts. Microcytic hyperchromic anemia noted. Patient has received blood. This can be further addressed with hematology oncology. Vital Signs/Physical Exam: Temp Pulse Resp BP Pulse Ox 96.9 F 61 17 181/80 H 100 06/30/21 11:33 06/30/21 17:02 06/30/21 11:33 06/30/21 17:02 06/30/21 11:33 General: Alert, In no apparent distress, Oriented x3, Cooperative HEENT: Atraumatic Neck: Supple Respiratory: Clear to auscultation bilaterally Cardiovascular: Normal pulses, Regular rate/rhythm Gastrointestinal: Normal bowel sounds Musculoskeletal: No warmth, Other (Edema to the extremities noted) Neurological: Normal speech, Normal strength at 5/5 x4 extr, Normal tone Laboratory Data at Discharge: WBC 5.40 K/uL (4.3-10.9) D 06/30/21 02:39 Hgb 9.8 g/dL (13.6-17.9) L D 06/30/21 02:39 Hct 29.2 % (39.6-49.0) L D 06/30/21 02:39 Plt Count 54 K/uL (152-406) L 06/30/21 02:39 PT 11.8 SECONDS (9.5-12.5) 06/02/21 11:00 INR 1.03 06/02/21 11:00 Sodium 137 mmol/L (136-145) 06/30/21 02:39 Potassium 4.8 mmol/L (3.5-5.1) 06/30/21 02:39 BUN 11 mg/dL (7-18) 06/30/21 02:39 Creatinine 3.98 mg/dL (0.55-1.3) H 06/30/21 02:39 Glucose 85 mg/dL (74-106) 06/30/21 02:39 Phosphorus 1.2 mg/dL (2.5-4.9) L 06/29/21 04:34 Magnesium 1.9 mg/dL (1.8-2.4) 06/30/21 02:39 Total Bilirubin 0.5 mg/dL (0.2-1.0) 06/26/21 14:18 AST 18 U/L (15-37) 06/26/21 14:18 ALT 17 U/L (12-78) 06/26/21 14:18 Alkaline Phosphatase 57 U/L (45-117) 06/26/21 14:18 Troponin I 0.03 ng/mL (0.0-0.045) 06/03/21 01:05 Triglycerides 98 mg/dL (<150) 06/03/21 06:44 Cholesterol 90 mg/dL (<200) 06/03/21 06:44 HDL Cholesterol 44 mg/dL (40-60) 06/03/21 06:44 Cholesterol/HDL Ratio 2.05 06/03/21 06:44 Lipase 115 U/L (73-393) 06/05/21 17:24 Home Medications: Atorvastatin Calcium [Lipitor*] 10 mg PO BEDTIME 10/12/20 Hydralazine HCl [Apresoline] 50 mg PO TID 10/12/20 Sertraline [Zoloft*] 25 mg PO DAILY 06/02/21 Calcitrol [Rocaltrol*] 0.25 mcg PO DAILY #30 cap 06/08/21 Calcium Carbonate [Oscal*] 1,000 mg PO DAILY #30 tab 06/08/21 Cholecalciferol (Vitamin D3) [Vitamin D 1000 Iu Tab*] 1,000 unit PO DAILY #30 tab 06/08/21 Nepro Shake [Nepro*] 237 ml PO TID #90 can 06/08/21 Thiamine HCl [Vitamin B-1*] 100 mg PO DAILY #30 tablet 06/08/21 Cholestyramine/Asp [Questran Light*] 4 gm PO BIDWM packet 06/25/21 Famotidine [Pepcid*] 20 mg PO DAILY tab 06/25/21 Hydralazine [Apresoline*] 100 mg PO TID tab 06/25/21 Loperamide [Imodium*] 2 mg PO Q4HP PRN cap 06/25/21 Nepro Shake [Nepro*] 237 ml PO BID can 06/25/21 Pantoprazole [Protonix Tab*] 40 mg PO BIDAC tab 06/25/21 cloNIDine HCL [Catapres*] 0.2 mg PO TID #0 tab 06/25/21 metroNIDAZOLE [Flagyl*] 500 mg PO TID #6 tablet 06/25/21 predniSONE [Prednisone*] 10 mg PO DAILY 5 Days #5 tab 06/25/21 New Medications: Nepro Shake [Nepro*] 237 ml PO TID #90 can Calcium Carbonate [Oscal*] 1,000 mg PO DAILY #30 tab Calcitrol [Rocaltrol*] 0.25 mcg PO DAILY #30 cap Thiamine HCl [Vitamin B-1*] 100 mg PO DAILY #30 tablet Cholecalciferol (Vitamin D3) [Vitamin D 1000 Iu Tab*] 1,000 unit PO DAILY #30 tab Physician Discharge Instructions: Patient to be transferred to [facility] for colorectal surgery Diet: Renal Activity: Fall precautions Followup: Lucy Mercedes MD [ACTIVE - CAN ADMIT] - (Follow up in dialysis ) Sebastian Roth MD [Primary Care Provider] - 1-2 Weeks Robbie Royal MD [ACTIVE - CAN ADMIT] - Jaycob Han MD [ACTIVE - CAN ADMIT] - Time spent managing pt's care (in minutes): 55
[2021-06-30 21:04] VITALS: BP 121/56; TEMP 97
--- NOTE | 2021-07-06 22:23 | PN ---
Date of Progress Note: 06/24/2021 Chief Complaint: End-stage renal disease, on hemodialysis. The patient has multiple medical problem s including history of severe deconditioning. He is complaining of reflux and diarrhea. He was foun d to have hyponatremia secondary to fluid overload and currently he is asymptomatic. Dialysis was do ne to control volemia. The patient was complaining of hypotension and clonidine dose was decreased t o prevent hypotensive episodes. Review of Systems: Denies fever, chills. Physical Examination: Lungs: Clear to auscultation bilaterally. Heart: S1, S2. Abdomen: Soft, benign. Extremities: No edema. Impression And Plan: 1.End-stage renal disease. Continue dialysis with ultrafiltration. Continue p.o. fluid restriction , low-sodium diet. 2.Hyponatremia due to fluid overload, dilutional, asymptomatic. Continue renal diet with p.o. fluid restriction. 3.Hyperkalemia. The patient received dialysis and potassium level is controlled. SYLVIA/DEONTE Voice ID: [id number] Report ID: [id number]
== END 2021-06-30 23:11 | disposition short-term general hospital (02) | DRG 374 ==
LOC: ER 10:28 → ERHOLD 13:19 → 2ND 16:29 → OBSVTOIN 06-03 18:50
PROVIDERS: ADMIT Family Medicine; ATTEND Family Medicine
PROC: 5A1D70Z Performance of Urinary Filtration, Intermittent, Less than 6 Hours Per Day (ICD-10-PCS; 2021-06-03)
PROC: 5A1D70Z Performance of Urinary Filtration, Intermittent, Less than 6 Hours Per Day (ICD-10-PCS; 2021-06-04)
PROC: 5A1D70Z Performance of Urinary Filtration, Intermittent, Less than 6 Hours Per Day (ICD-10-PCS; 2021-06-07)
PROC: 5A1D70Z Performance of Urinary Filtration, Intermittent, Less than 6 Hours Per Day (ICD-10-PCS; 2021-06-09)
PROC: 5A1D70Z Performance of Urinary Filtration, Intermittent, Less than 6 Hours Per Day (ICD-10-PCS; 2021-06-11)
PROC: 5A1D70Z Performance of Urinary Filtration, Intermittent, Less than 6 Hours Per Day (ICD-10-PCS; 2021-06-14)
PROC: 5A1D70Z Performance of Urinary Filtration, Intermittent, Less than 6 Hours Per Day (ICD-10-PCS; 2021-06-16)
PROC: 5A1D70Z Performance of Urinary Filtration, Intermittent, Less than 6 Hours Per Day (ICD-10-PCS; 2021-06-18)
PROC: 5A1D70Z Performance of Urinary Filtration, Intermittent, Less than 6 Hours Per Day (ICD-10-PCS; 2021-06-21)
PROC: 5A1D70Z Performance of Urinary Filtration, Intermittent, Less than 6 Hours Per Day (ICD-10-PCS; 2021-06-23)
PROC: 5A1D70Z Performance of Urinary Filtration, Intermittent, Less than 6 Hours Per Day (ICD-10-PCS; 2021-06-25)
PROC: 0DBL8ZX Excision of Transverse Colon, Via Natural or Artificial Opening Endoscopic, Diagnostic (ICD-10-PCS; 2021-06-27)
PROC: 0DB98ZZ Excision of Duodenum, Via Natural or Artificial Opening Endoscopic (ICD-10-PCS; principal; 2021-06-27 11:00)
PROC: 0DB68ZZ Excision of Stomach, Via Natural or Artificial Opening Endoscopic (ICD-10-PCS; 2021-06-27 11:00)
PROC: 5A1D70Z Performance of Urinary Filtration, Intermittent, Less than 6 Hours Per Day (ICD-10-PCS; 2021-06-28)
PROC: 30233N1 Transfusion of Nonautologous Red Blood Cells into Peripheral Vein, Percutaneous Approach (ICD-10-PCS; 2021-06-29)
PROC: 5A1D70Z Performance of Urinary Filtration, Intermittent, Less than 6 Hours Per Day (ICD-10-PCS; 2021-06-30)
DX: C18.4 Malignant neoplasm of transverse colon (principal); I50.33 Acute on chronic diastolic (congestive) heart failure; N18.6 End stage renal disease; E43 Unspecified severe protein-calorie malnutrition; I12.0 Hypertensive chronic kidney disease with stage 5 chronic kidney disease or end stage renal disease; K56.7 Ileus, unspecified; E87.1 Hypo-osmolality and hyponatremia; K92.1 Melena; N25.81 Secondary hyperparathyroidism of renal origin; K52.9 Noninfective gastroenteritis and colitis, unspecified; E11.22 Type 2 diabetes mellitus with diabetic chronic kidney disease; I73.9 Peripheral vascular disease, unspecified; K21.9 Gastro-esophageal reflux disease without esophagitis; I95.9 Hypotension, unspecified; F32.9 Major depressive disorder, single episode, unspecified; D63.1 Anemia in chronic kidney disease; E73.9 Lactose intolerance, unspecified; C61 Malignant neoplasm of prostate; R53.81 Other malaise; N25.0 Renal osteodystrophy; E87.6 Hypokalemia; Z66 Do not resuscitate; E83.39 Other disorders of phosphorus metabolism; E83.51 Hypocalcemia; R62.7 Adult failure to thrive; E87.5 Hyperkalemia; K29.70 Gastritis, unspecified, without bleeding; D69.6 Thrombocytopenia, unspecified; E83.42 Hypomagnesemia; L89.152 Pressure ulcer of sacral region, stage 2; Z20.828 Contact with and (suspected) exposure to other viral communicable diseases; Z68.20 Body mass index [BMI] 20.0-20.9, adult; Z99.2 Dependence on renal dialysis; Z86.73 Personal history of transient ischemic attack (TIA), and cerebral infarction without residual deficits
CPT/HCPCS: 36415; 36430; 71045; 74018; 74019; 74176; 80048; 80053; 80061; 80069; 80076; 81003; 81015; 82274; 82306; 82550; 82553; 82947; 83010; 83605; 83615; 83690; 83735; 83880; 84100; 84132; 84145; 84425; 84439; 84443; 84484; 85014; 85018; 85025; 85044; 85610; 86317; 86704; 86706; 86850; 86900; 86901; 87040; 87045; 87046; 87086; 87088; 87177; 87209; 87324; 87340; 87449; 87522; 88305; 88312; 90935; 96361; 96365; 96366; 96367; 97110; 97116; 97162; 97530; 99251; 99285; C9113; G0378; J0360; J0610; J0696; J1610; J1644; J1720; J1940; J2370; J2405; J2543; J2704; J3475; J7030; J7040; J7050; J7512; J7799; P9016; P9047; U0003